=== PATIENT | female | born 1995 | race Caucasian/White ===

== ENCOUNTER 2019-11-08 16:18 | Emergency (ER) | payer OTHER, MEDICAID, SELFPAY ==
[2019-11-08 16:20] VITALS: BP 112/76; PULSE 82; RESP 18; TEMP 36.7; O2SAT 97; BMI 21.6
--- NOTE | 2019-11-08 16:46 | NURSING ---
NO OLD EKGS
--- NOTE | 2019-11-08 16:47 | EKG12_ITS ---
Test Reason : SYNCOPE Blood Pressure : / mmHG Vent. Rate : 069 BPM Atrial Rate : 069 BPM P-R Int : 114 ms QRS Dur : 082 ms QT Int : 380 ms P-R-T Axes : 038 032 035 degrees QTc Int : 407 ms Normal sinus rhythm Normal ECG Confirmed by MARIA A ZABALA, NIRMAL ([id number]), graphics editor YASEMIN LU ([id number]) on 11/13/2019 1:57:43 PM Referred By: CHARLIE Confirmed By:MAHI SAHA MD
--- NOTE | 2019-11-08 16:48 | ED.VIS.GEN ---
History of Present Illness Chief Complaint: Syncope Narrative: This patient is a 24-year-old female who presents with near syncope. Although to triage she had stated that she had multiple episodes of fainting she clarifies that she never actually completely lost consciousness. Over the past week she has had episodes of lightheadedness which is worse with standing. She has become lightheaded to the point where she needs to fall to her knees. No injuries. She does have a history of anemia with similar symptoms. This was related to her . She has not currently . She denies recent illness such as fevers vomiting or diarrhea. Her only daily medication is a vitamin. She denies any abnormal bleeding. She denies history of heavy periods. Past Medical History - Allergies and Home Meds Allergies/Adverse Reactions: Allergies No Known Allergies Allergy (Verified 11/08/19 16:23) Past Medical History: - - Anemia Review of Systems All systems negative except as indicated General: Denies: Fever Eyes: Denies: Visual changes - bilaterally Cardiovascular: Denies: Chest pain Respiratory: Denies: Dyspnea Gastrointestinal: Denies: Abdominal pain, Nausea, Vomiting, Diarrhea Musculoskeletal: Denies: Myalgias, Arthralgias Skin: Denies: Rash Neurological: Reports: Headache Hematologic: Denies: Easy bruising, Easy bleeding Physical Exam Vital Signs/Narrative: Vital Signs Temp Pulse Resp BP Pulse Ox 11/08/19 16:20 98.1 F 82 18 112/76 97 Inital Vital Signs reviewed: Yes General: Well nourished Head: Normocephalic Eyes: EOMI ENT: Moist mucous membranes Neck: Supple Cardiovascular: Regular rate, Regular rhythm Respiratory: No distress, CTA bilaterally Abdomen: Soft, Nontender Skin: Normal color Neurological: Alert Psychological: Normal affect Diagnostic/Tx/Re-eval - Medical Decision Making Orthostatic vital signs were negative. EKG shows normal sinus rhythm at a rate of 69 with no acute ischemic changes. Patient was treated with IV fluids. Laboratory studies unremarkable as above with normal hemoglobin. Patient advised to follow-up as an outpatient but does understand return for new worsening or recurrent symptoms. ED Disposition - Plan for ED Patient: Disposition: Home or Assisted Living Diagnosis: Near syncope Instructions: ED Near-Fainting Uncertain Cause
[2019-11-08 17:06] VITALS: BP 104/58; PULSE 72
[2019-11-08 17:08] VITALS: BP 116/73; PULSE 81
[2019-11-08 17:12] VITALS: BP 107/64; PULSE 76
[2019-11-08 17:40] LABS: Absolute Lymphocyte Count 3.25 X10^3/uL (0.83-4.51); Absolute Neutrophil Count 4.8 X10^3/uL (2.0-7.7); Basophil# 0.05 X10^3/uL; Basophil% 0.6 % (0-1); Eosinophil# 0.16 X10^3/uL; Eosinophils% 1.8 % (0-5); Hematocrit 45.2 % (37-47); Hemoglobin 14.9 g/dL (12.0-15.0); Lymphocyte # 3.25 X10^3/ul (4.0); Lymphocyte % 37.5 % (19-41); Mean Corpuscular Hgb 31.3 pg (27.0-32.0); Mean Platelet Vol. 9.8 fl (6.2-12.0); Monocyte# 0.41 X10^3/uL; Monocyte% 4.7 % (0-10); NRBC Flagged by Analyzer 0 % (0-5); Neutrophil # 4.78 X10^3/uL (2.7-7.7); Neutrophil % 55.2 % (47-70); Platelet Count 269 K/mm3 (150-450); RBC Distribution Width SD 41.3 fl (35.1-43.9); Red Blood Count 4.76 M/mm3 (4.2-5.4); White Blood Count 8.7 K/mm3 (4.4-11.0)
[2019-11-08] MEDS: 0.9% Normal Saline 1,000 ML 999 ML IV (17:53)
--- NOTE | 2019-11-08 17:53 | NURSING ---
HEMOLIZED CHEMISTRIES
[2019-11-08 18:33] VITALS: BP 120/73; PULSE 78; RESP 16; O2SAT 100
[2019-11-08 19:07] LABS: Anion Gap 5 (5-15); BUN 12 mg/dL (7-18); Calcium,Total 9.1 mg/dL (8.5-10.1); Chloride 108 mmol/L (98-107); Creatinine, Serum 0.66 mg/dL (0.55-1.02); EST Glomerular Filtration Rate 118 mL/min (>60); Est Glom Filt Rate - Afr Amer 143 mL/min (>60); Estimated Creatinine Clearance 120.31 ml/min; Glucose 86 mg/dL (74-106); Potassium 4.1 mmol/L (3.5-5.1); Sodium Level 141 mmol/L (136-145)
[2019-11-08 19:16] VITALS: BP 110/74; PULSE 82; RESP 16; O2SAT 100
== END 2019-11-08 19:23 | disposition home or self-care (01) ==
PROVIDERS: Emergency Provider Emergency Medicine
DX: R55 Syncope and collapse (principal)
CPT/HCPCS: 80048; 85025; 93005; 96360; 99285; J7030; A4216

== ENCOUNTER 2019-11-11 13:34 | Emergency (ER) | payer OTHER, MEDICAID, SELFPAY ==
[2019-11-11 13:35] VITALS: BP 134/73; PULSE 78; RESP 18; TEMP 36.4; O2SAT 97; BMI 21.6
--- NOTE | 2019-11-11 13:50 | EKG12_ITS ---
Test Reason : DYSRHYTHMIA Blood Pressure : / mmHG Vent. Rate : 073 BPM Atrial Rate : 073 BPM P-R Int : 114 ms QRS Dur : 088 ms QT Int : 386 ms P-R-T Axes : 044 037 042 degrees QTc Int : 425 ms Normal sinus rhythm Normal ECG Confirmed by WILIAM ZABALA, TAMERA ([id number]), assignment desk editor YASEMIN LU ([id number]) on 11/15/2019 1:04:40 PM Referred By: ITZ Confirmed By:TAMERA SWAIN MD
--- NOTE | 2019-11-11 13:53 | ED.VIS.GEN ---
History of Present Illness <Joel Velez - Last Filed: 11/11/19 14:01> Informant: Patient Onset: Today Context: Sudden Onset Timing: Lasts - 5 seconds Quality: near-Syncope Location: head Current Severity: Mild Maximum Severity: Severe Worsened by: exertion Relieved by: rest Associated Symptoms: Fatigue Narrative: 24-year-old female history of iron deficiency anemia presents to the emergency department with near syncope. She was seen here few days ago for similar. She is getting episodes when she stands up from a seated or lying position where she feels near syncopal but has not actually lost consciousness. No seizure-like activity. No chest pain shortness of breath or palpitations. She does not feel like her heart racing. No headache or neck pain. No room spinning sensation. No visual changes or loss of vision. No numbness tingling or weakness. No difficulty with speech or ambulation. No chest pain or hemoptysis. No leg pain or swelling. She is not on control. She denies risk factors for pulmonary embolism. She has been noncompliant with her iron. Denies symptoms of bleeding. Prior similar symptoms: Yes Recent Illness/Hospitalization: No <Yosvany Brambila - Last Filed: 11/11/19 14:21> Chief Complaint: Syncope Past Medical History <Joel Velez - Last Filed: 11/11/19 14:01> Prior records reviewed: Yes Past Medical History: - - Iron deficiency anemia Surgical History: no surgical history Lives: With Family Smoking Status: Never smoker Alcohol: None Drugs: None <Yosvany Brambila - Last Filed: 11/11/19 14:21> - Allergies and Home Meds Allergies/Adverse Reactions: Allergies No Known Allergies Allergy (Verified 11/11/19 13:38) Primary Care Physician: Care Physician,No Primary [Primary Care Provider] - Review of Systems All systems negative except as indicated General: Denies: Chills, Fever, Sweats Eyes: Denies: Visual changes - bilaterally, Diplopia ENT: Denies: Rhinorrhea, Sore throat Cardiovascular: Denies: Chest pain, Palpitations Respiratory: Denies: Dyspnea, Cough, Dyspnea on exertion Gastrointestinal: Denies: Abdominal pain, Nausea, Vomiting, Diarrhea, Melena, Hematochezia Genitourinary: Denies: Dysuria, Hematuria, Frequency Musculoskeletal: Denies: Back pain, Extremity Pain Skin: Denies: Rash, Wounds Neurological: Denies: Headache, Weakness, Numbness <Yosvany Brambila - Last Filed: 11/11/19 14:21> Physical Exam Vital Signs/Narrative: Vital Signs Temp Pulse Resp BP Pulse Ox 11/11/19 13:35 97.6 F L 78 18 134/73 H 97 <Joel Velez - Last Filed: 11/11/19 14:01> Vital Signs/Narrative: Vital Signs Temp Pulse Resp BP Pulse Ox 11/11/19 13:35 97.6 F L 78 18 134/73 H 97 Inital Vital Signs reviewed: Yes General: Well nourished, Well developed, No Acute Distress Head: Normocephalic, Atraumatic Eyes: Perrl, EOMI ENT: Moist mucous membranes, No rhinorrhea Neck: Supple, Nontender Cardiovascular: Regular rate, Regular rhythm, No murmurs Respiratory: No distress, CTA bilaterally, Chest nontender Abdomen: Soft, Nontender, Nondistended, Normal bowel sounds Back: Nontender, Normal Inspection Extremities: Nontender, No edema Skin: Normal color, No rash Neurological: Alert, Oriented x3, Cranial nerves II-XII grossly intact, Normal Strength, Normal Sensation Psychological: Normal affect, Normal Mood <Yosvany Brambila - Last Filed: 11/11/19 14:21> Diagnostic/Tx/Re-eval - Medical Decision Making Patient was seen with Jadyn agree with history and physical as above, The patient has not had syncope she has a sensation that strikes her where she feels rubbery as if she is going to pass out but does not she is had no fever no cough no chest pain abdominal pain no numbness weakness or paresthesias, she has no exposures to coronavirus denies being , she has history of anemia she was seen recently in emergency department with exact same issue her work-up was unremarkable she is to follow-up with her outpatient providers next week she had another sense of feeling rubbery and came in for evaluation. Nothing triggers the sensations there is no premonitory symptoms she is resting the bed vital signs are normal and she has no complaints her physical exam head neck chest abdomen cardiac upper lower extremity neurologic exam entirely unremarkable Her EKG shows sinus rhythm 70 no acute injury pattern intervals normal Discussed all the above with her discussed we could repeat ED evaluation that she just had it was unremarkable she declined that she is resting comfortably bed at this time she is comfortable discharge home to follow-up with her outpatient providers for further management Home stable final impression paroxysms of feeling weak etiology unclear <Joel Velez - Last Filed: 11/11/19 14:01> - Rhythm Strip Rhythm Strip: Sinus Rhythm Rate: 73 Ectopy: None - EKG Initial EKG Interpretation: Sinus Rhythm, No Acute Injury Pattern Prior: Unchanged <Yosvany Brambila - Last Filed: 11/11/19 14:21> ED Disposition <Joel Velez - Last Filed: 11/11/19 14:01> <Yosvany Brambila - Last Filed: 11/11/19 14:21> - Plan for ED Patient: Disposition: Home or Assisted Living Diagnosis: Generalized weakness, Iron deficiency anemia Instructions: ED Weakness [facility] Referrals: J Carlos Sylvester MD [STAFF PHYSICIAN] -
--- NOTE | 2019-11-11 13:58 | NURSING ---
NO OLD EKGS
[2019-11-11 14:33] VITALS: BP 111/68; PULSE 78; RESP 24; O2SAT 98
== END 2019-11-11 14:33 | disposition home or self-care (01) ==
PROVIDERS: Emergency Provider Physician Assistant Medical
DX: D50.9 Iron deficiency anemia, unspecified (principal); R53.1 Weakness; Z91.19 Patient's noncompliance with other medical treatment and regimen
CPT/HCPCS: 93005; 99282; A4216

== ENCOUNTER 2020-11-02 07:25 | Emergency (ER) | payer OTHER, MEDICAID, SELFPAY ==
[2020-11-02 07:26] VITALS: BP 107/70; PULSE 85; RESP 18; TEMP 36.6; O2SAT 100; BMI 21.6
--- NOTE | 2020-11-02 07:45 | EX.ED.DYSGE1 ---
HPI History of Present Illness Chief Complaint: Nausea/Vomiting Informant: patient and friend Onset/Context/Timing Onset: Today (early this AM) Context: Gradual Onset (ingesting drugs and etoh) Timing: Continuous Quality: n/v, malaise Location: all over Current Severity: Moderate Maximum Severity: Moderate Worsened by: trying to eat/drink Relieved by: nothing Associated Symptoms Associated Symptoms: headache, lightheaded Narrative Narrative: Patient and her friend were partying last night, she did not have a lot of alcohol to drink, but they were drinking some type of drug that they were under the impression was mildly/MDMA, but they are suspicious that it could have also included some type of opioid and methamphetamine possibly as well. Since doing all this she started feeling nauseated and progressed to vomiting, she has been vomiting all morning/night, and states as a result of the vomiting she has some abdominal muscular soreness but denies any abdominal pains prior to the vomiting. She feels malaised, lightheaded, has a headache, no other focal symptoms. Last normal menstrual cycle was 2.5-3 weeks ago, she has been regular she denies or any other recent injury or illness. [facility] Medical History (Updated 11/02/20 @ 08:16 by Adam Orellana) Raynaud's disease no medical history Home Medications NK 11/08/19 [History Last Taken Unknown] Allergy/AdvReac Type Severity Reaction Status Date / Time No Known Allergies Allergy Verified 11/02/20 07:28 Social History (Updated 11/02/20 @ 07:[address] 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 and other details: Does not use IV drugs ROS ROS ED Constitutional Constitutional ED: Reports malaise; Denies chills or fever(s) Eyes Eyes: Denies change in vision or diplopia ENT ENT ED: Denies rhinorrhea or sore throat Cardiovascular Cardiovascular: Denies chest pain or palpitations Respiratory/Chest Respiratory/Chest: Denies cough or dyspnea Gastrointestinal Gastrointestinal: Denies abdominal pain or diarrhea Genitourinary Genitourinary ED: Denies dysuria or hematuria Musculoskeletal Musculoskeletal: Denies back pain or neck pain Integumentary Denies abscess or rash Neurologic Neurologic: Reports headache(s); Denies paresthesias or weakness Psychiatric Psychiatric: Denies anxiety or suicidal thoughts EXAM Physical Exam Const Vital Signs: 11/02/20 07:26 Temperature 97.9 F Temperature Source Temporal Pulse Rate 85 Respiratory Rate 18 Blood Pressure 107/70 Blood Pressure Mean 82 Pulse Ox 100 Oxygen Delivery Method Room Air Positive well nourished and well developed General Appearance ED: well developed and NAD HEENT Reports moist mucous membranes normocephalic and atraumatic Eyes PERRL and EOMs intact bilaterally Neck full ROM and supple Resp normal respiratory effort and clear to auscultation bilaterally Cardio regular rate, regular rhythm and no murmurs Rate: Negative for tachycardic GI non-tender and non-distended Auscultation: normoactive bowel sounds Palpation: soft Back/Spine no CVA tenderness General Back: other FROM Extremity normal to inspection General Extremety ED: Negative for edema, pulses abnormal or tenderness General Extremity: Negative for edema or pulses abnormal Neuro oriented x3, CN's II-XII intact bilaterally and no sensory deficits noted Sensorium / Orientation: awake and alert Motor Exam: strength 5/5 throughout Skin no rashes or lesions noted and no wounds MDM MDM MDM Narrative Medical decision making narrative: Patient was treated symptomatically with IV fluids, Zofran, Toradol. She felt better on reevaluation was able to tolerate oral fluids, and was discharged with appropriate discharge instructions. Discharge Plan Triage Chief Complaint: Nausea/Vomiting ED Provider: Ramon Haque Dx/Rx/DC Orders Clinical Impression: Nausea & vomiting, Polysubstance abuse Instructions: ED Diet for Vomiting or Diarrhea Adult, ED Drug Abuse Prescriptions: No Action NK RF: 0 Primary Care Provider: Care Physician,No Primary Referrals: Zuly Garcia [NON-STAFF] - As Needed Care Physician,No Primary [Primary Care Provider] - Disposition Disposition: Home, self care
[2020-11-02] MEDS: 0.9% Normal Saline 1,000 ML 999 ML IV (08:06)
[2020-11-02] MEDS: Ketorolac 30 MG/ML Syringe IV (08:07)
[2020-11-02] MEDS: Ondansetron 4 MG/2 ML Vial IV (08:07)
--- NOTE | 2020-11-02 09:58 | ED.RN ---
Pt admits improved feeling
[2020-11-02 10:09] VITALS: BP 126/82; PULSE 83; RESP 16; O2SAT 100
== END 2020-11-02 10:10 | disposition home or self-care (01) ==
PROVIDERS: Emergency Provider Emergency Medicine
DX: R11.2 Nausea with vomiting, unspecified (principal); R42 Dizziness and giddiness; R51.9 Headache, unspecified; I73.00 Raynaud's syndrome without gangrene; F19.10 Other psychoactive substance abuse, uncomplicated
CPT/HCPCS: 96361; 96374; 96375; 99283; J7030; A4216; J2405

== ENCOUNTER 2024-12-17 18:58 | Emergency (ER) | payer OTHER, SELFPAY ==
[2024-12-17] VITALS (7 sets, daily range): BP systolic 105–126; BP diastolic 56–78; PULSE 91–112; RESP 14–18; TEMP 36.2–36.9; O2SAT 96–100; BMI 21.9
--- NOTE | 2024-12-17 19:14 | EKG12_ITS ---
Test Reason : SYNCOPE Blood Pressure : */* mmHG Vent. Rate : 105 BPM Atrial Rate : 105 BPM P-R Int : 122 ms QRS Dur : 80 ms QT Int : 324 ms P-R-T Axes : 52 17 19 degrees QTcB Int : 428 ms Sinus tachycardia poor rwave progression Borderline Confirmed by Winston Chen ([id number]), material expeditor LENA HERNANDEZ ([id number]) on 12/19/2024 1:12:30 PM Referred By: Emelina Howard Confirmed By: Winston Chen
--- NOTE | 2024-12-17 19:14 | CT_ITS ---
PROCEDURE: ABDOMEN/PELVIS W IV CONT ONLY 12/17/2024 REASON FOR EXAM: ABDOMINAL PAIN TECHNIQUE: ABDOMEN/PELVIS W IV CONT ONLY Coronal and Sagittal reconstruction series were provided. CONTRAST: Isovue 370 VOLUME: 88 mL One or more dose reduction techniques were used (e.g., Automated exposure control, adjustment of the mA and/or kV according to patient size, use of iterative reconstruction technique. RADIATION DOSE SUMMARY: CTDlvol: 17 mGy DLP: 345 mGycm COMPARISON: No FINDINGS: Clear lung bases. Normal heart size. Unremarkable liver, gallbladder, pancreas, spleen, adrenal glands, kidneys. No hydronephrosis or ureteral stone. Normal bladder. Normal uterus and left ovary. Involuting right ovarian cyst. Small pelvic free fluid. No retroperitoneal or pelvic adenopathy. Distended pelvic veins, correlate for pelvic congestion syndrome. No free air. Nondistended bowel. Multiple distal small bowel loops show wall thickening, possible enteritis. No acute large bowel findings. No signs of appendicitis. No acute abdominal wall findings. CT/Abdomen/Pelvis W IV Cont ONLY IMPRESSION: Recent right ovarian cyst rupture with pelvic fluid, this can be a cause of prince n. 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 Distal enteritis such as secondary to infection. Advise correlation. Reading Location: [facility]
--- NOTE | 2024-12-17 19:15 | EDS_ITS ---
HPI History of Present Illness Chief Complaint: Syncope Detail of Chief Complaint: Abdominal pain and syncopal episode Informant: patient Narrative Narrative: Patient presents to the emergency department complaint of abdominal pain had started this morning around 9 AM when she first woke up. Patient took some Pepto-Bismol but really did not have relief with that. Pain then progressed, to the left side of her abdomen and into her back. On the way to the hospital she was in the car and had a syncopal episode that lasted about 2 minutes. She denies any chest pain or shortness of breath. Feels chilled. She denies urinary symptoms. Her last menstrual period was a week ago. PFSH PFS Medical History (Updated 12/17/24 @ 23:[address] Emelina Howard, DO) Raynaud's disease Home Medications ?Medication ?Instructions ?Recorded ?Last Taken ?Type hydrocodone-acetaminophen 5-325mg 1 tab PO Q4H PRN PRN Pain 2 days 12/17/24 Unknown Rx 5mg-325mg #10 TABLETS Allergy/AdvReac Type Severity Reaction Status Date / Time carbinoxamine (From [facility]) Allergy Intermediate Hives Verified 12/17/24 19:23 pseudoephedrine (From [facility]) Allergy Intermediate Hives Verified 12/17/24 19:23 Surgical History (Updated 12/17/24 @ 19:36 by Kezia Sylvester) Hx of tonsillectomy [place] teeth extracted Social History (Updated 11/02/20 @ 07:[address] 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 and other details: Does not use IV ina gs ROS ROS ED Review of Systems ROS Unobtainable: other Constitutional Constitutional ED: Reports chills and lethargy; Denies fever(s), sweats or weight loss Eyes Eyes: Denies blurry vision, change in vision or diplopia ENT ENT ED: Denies rhinorrhea or sore throat Cardiovascular Cardiovascular: Denies chest pain, orthopnea or racing heartbeat Respiratory/Chest Respiratory/Chest: Denies cough, dyspnea, dyspnea on exertion, orthopnea or sputum Gastrointestinal Gastrointestinal: Reports abdominal pain; Denies diarrhea, nausea or vomiting Genitourinary Genitourinary ED: Denies dysuria, hematuria or urinary frequency Musculoskeletal Musculoskeletal: Reports back pain; Denies arthralgias, myalgias or neck pain Integumentary Denies abscess, Abrasions or rash Neurologic Neurologic: Reports other Details: Syncope ; Denies headache(s) or weakness Psychiatric Psychiatric: Denies anxiety, depression or suicidal thoughts Endocrine Endocrinology: Denies polydipsia, polyphagia or polyuria Hematologic/Lymphatic Hematologic/Lymphatic: Denies easy bleeding, easy bruising or lymphadenopathy Allergic/Immunologic Allergic/Immunologic ED: Denies mouth swelling, tongue swelling or urticaria EXAM Physical Exam Const Vital Signs: 12/17/24 18:59 12/17/24 19:23 12/17/24 19:33 Temperature 97.2 F L Temperature Source Temporal Pulse Rate 112 H 92 Respiratory Rate 16 16 Respiratory Effort Normal Respiratory Pattern Normal Blood Pressure 115/78 126/66 H Blood Pressure Mean 90 86 Pulse Ox 100 100 Oxygen Delivery Method Room Air Room Air 12/17/24 20:00 12/17/24 21:17 12/17/24 22:00 Temperature Temperature Source Pulse Rate 98 91 Respiratory Rate 14 18 Respiratory Effort Respiratory Pattern Blood Pressure 112/56 L 115/77 117/77 Blood Pressure Mean 74 89 90 Pulse Ox 99 99 96 Oxygen Delivery Method Room Air 12/17/24 23:00 Temperature Temperature Source Pulse Rate 94 Respiratory Rate 18 Respiratory Effort Respiratory Pattern Blood Pressure 105/66 Blood Pressure Mean 79 Pulse Ox 98 Oxygen Delivery Method Positive well nourished and well developed General Appearance ED: well developed and NAD HEENT Reports TM's clear and moist mucous membranes normocephalic and atraumatic; Negative for trauma or tenderness Tympanic Membrane ED: Yes TM's clear Eyes PERRL and EOMs intact bilaterally General Eye ED: Negative for pale conjunctiva or scleral icterus Neck no lymphadenopathy, supple and no JVD General: Negative for tenderness Chest Wall inspection of chest normal and palpation of chest normal Chest: Negative for tenderness Resp normal respiratory effort and clear to auscultation bilaterally Effort and Inspection: Negative for respiratory distress or pain with movement Auscultation: Negative for rhonchi, wheezes or diminished lung sounds Cardio regular rate, regular rhythm, S1 normal heart sound, S2 normal heart sound and no murmurs Peripheral Pulses: pulses 2+ throughout GI normal to inspection, nondistended, normoactive bowel sounds, soft to palpation, non-distended and no masses GI Narrative: Mild tenderness palpation over the left upper quadrant and left lower quadrant with mild guarding. There is no rebound, rigidity, or purulent signs. Mild CVA tenderness on the left. Back/Spine no thoracic nor lumbar tenderness; Negative for no CVA tenderness Back/Spine Narrative: Mild CVA tenderness on the left. Extremity normal to inspection General Extremety ED: Negative for edema General Extremity: Negative for edema Neuro oriented x3, CN's II-XII intact bilaterally, no sensory deficits noted and gait normal Sensorium / Orientation: awake, alert, oriented to person, oriented to place and oriented to time Motor Exam: strength 5/5 throughout and strength abnormal Psych mental status grossly normal Skin no rashes or lesions noted and no wounds MDM MDM MDM Narrative Medical decision making narrative: Patient presents to the emergency department with abdominal pain since this morning initially was epigastric now more left-sided lower abdomen. Diffuse tenderness to palpation over suprapubic region as well as left lower quadrant. There is no rebound or rigidity. IV line established. She was medicated with Toradol as well as Dilaudid and Zofran and had good pain relief with that. CBC with her shows a white count of 8.6 with hemoglobin 12 and platelet count of 225. Chemistries unremarkable. Lactate less than 1. Urinalysis negative for infection. hCG was negative. CT scan of the abdomen pelvis read by radiology as recent right ovarian cyst rupture with pelvic fluid. 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 Distal enteritis such as secondary to infection advise correlation. Patient has not had any diarrheal type illness. This point I did discuss case with [employer] on-call Dr. Christianson who would be happy to follow patient up in the office. No treatment indicated at this time for pelvic congestion syndrome. Patient will be given a prescription for a few [place] for pain. Advised return if worsening pain, fever, vomiting, or condition should worsen anyway. I suspect the syncopal episode was likely vagally mediated related to pain. EKG obtained arrival showed a sinus rhythm with rate of 105 bpm with no acute ST segment changes Lab Data Attestation: I reviewed the patient's lab results. Labs: Laboratory Results - last 24 hr 12/17/24 12/17/24 12/17/24 19:26 19:26 19:42 WBC Cancelled Corrected WBC Cancelled RBC Cancelled Hgb Cancelled Hct Cancelled MCV Cancelled MCH Cancelled MCHC Cancelled RDW Std Deviation Cancelled RDW Coeff of Conrado Cancelled Plt Count Cancelled MPV Cancelled Immature Gran % (Auto) Cancelled Neut % (Auto) Cancelled Lymph % (Auto) Cancelled [place] % (Auto) Cancelled Eos % (Auto) Cancelled Baso % (Auto) Cancelled Absolute Neuts (auto) Cancelled Absolute Lymphs (auto) Cancelled Total Counted Cancelled Neutrophils % (Manual) Cancelled Band Neutrophils % Cancelled Lymphocytes % (Manual) Cancelled Monocytes % (Manual) Cancelled Eosinophils % (Manual) Cancelled Basophils % (Manual) Cancelled Metamyelocytes % Cancelled Myelocytes % Cancelled Promyelocytes % Cancelled Blast Cells % Cancelled Plasma Cell % (Manual) Cancelled Other Cells % Cancelled Nucleated RBC % Cancelled Nucleated RBCs/100 WBC Cancelled Differential Comment Cancelled Diff Path Review Cancelled Hypersegmented Neuts Cancelled Atypical Lymphocytes Cancelled Reactive Lymphocytes Cancelled Smudge Cells Cancelled Toxic Granulation Cancelled Toxic Vacuolation Cancelled Dohle Bodies Cancelled Lindsay Rods Cancelled Platelet Estimate Cancelled Plt Morphology Comment Cancelled RBC Morphology Cancelled Cancelled Polychromasia Cancelled Hypochromasia Cancelled Basophilic Stippling Cancelled Anisocytosis Cancelled Microcytosis Cancelled Macrocytosis Cancelled Spherocytes Cancelled Sickle Cells Cancelled Target Cells Cancelled Tear Drop Cells Cancelled Ovalocytes Cancelled Stomatocytes Cancelled Lopez-[place] Bodies Cancelled Boncarbo Cells Cancelled Bite Cells Cancelled Crenated Cell Cancelled Acanthocytes (Spur) Cancelled Rouleaux Cancelled Schistocytes Cancelled Sodium 134 Potassium 4.3 Chloride 102 Carbon Dioxide 17.5 L Anion Gap 15 BUN 8 Creatinine 0.63 L Estim Creat Clear Calc 120.70 Est GFR (MDRD) Non-Af 125 BUN/Creatinine Ratio 12.7 Glucose 94 Lactic Acid < 1.0 Calcium 9.7 Total Bilirubin 0.38 AST 24 ALT 9 Alkaline Phosphatase 71 Total Protein 7.0 Albumin 4.3 Globulin 2.7 Albumin/Globulin Ratio 1.6 Lipase 17 Serum , Qual NEGATIVE Urine Color Yellow Urine Clarity Sl. Cloudy Urine pH 6.5 Ur Specific Hitchcock 1.010 Urine Protein 15 H Urine Glucose (UA) Normal Urine Ketones 15 H Urine Occult Blood Negative Urine Nitrite Negative Urine Bilirubin Negative Urine Urobilinogen Normal Ur Leukocyte Esterase 100 H Urine RBC 0-5 SEEN Urine WBC 5-10 SEEN Ur Squamous Epith Cells 25-50 SEEN Ur Transition Epith Cell 0-5 SEEN Urine Bacteria 2+ Urine Mucus 0 SEEN 12/17/24 20:51 WBC 8.6 Corrected WBC RBC 4.06 L Hgb 12.2 Hct 35.6 L MCV 87.7 MCH 30.0 MCHC 34.3 RDW Std Deviation 40.3 RDW Coeff of Conrado 12.4 Plt Count 225 MPV 9.2 Immature Gran % (Auto) 0.300 Neut % (Auto) 84.6 H Lymph % (Auto) 10.0 L [place] % (Auto) 4.9 Eos % (Auto) 0.0 Baso % (Auto) 0.2 Absolute Neuts (auto) 7.3 Absolute Lymphs (auto) 0.86 Total Counted Neutrophils % (Manual) Band Neutrophils % Lymphocytes % (Manual) Monocytes % (Manual) Eosinophils % (Manual) Basophils % (Manual) Metamyelocytes % Myelocytes % Promyelocytes % Blast Cells % Plasma Cell % (Manual) Other Cells % Nucleated RBC % 0 Nucleated RBCs/100 WBC Differential Comment Diff Path Review Hypersegmented Neuts Atypical Lymphocytes Reactive Lymphocytes Smudge Cells Toxic Granulation Toxic Vacuolation Dohle Bodies Lindsay Rods Platelet Estimate Plt Morphology Comment RBC Morphology Polychromasia Hypochromasia Basophilic Stippling Anisocytosis Microcytosis Macrocytosis Spherocytes Sickle Cells Target Cells Tear Drop Cells Ovalocytes Stomatocytes Lopez-[place] Bodies Boncarbo Cells Bite Cells Crenated Cell Acanthocytes (Spur) Rouleaux Schistocytes Sodium Potassium Chloride Carbon Dioxide Anion Gap BUN Creatinine Estim Creat Clear Calc Est GFR (MDRD) Non-Af BUN/Creatinine Ratio Glucose Lactic Acid Calcium Total Bilirubin AST ALT Alkaline Phosphatase Total Protein Albumin Globulin Albumin/Globulin Ratio Lipase Serum , Qual Urine Color Urine Clarity Urine pH Ur Specific Hitchcock Urine Protein Urine Glucose (UA) Urine Ketones Urine Occult Blood Urine Nitrite Urine Bilirubin Urine Urobilinogen Ur Leukocyte Esterase Urine RBC Urine WBC Ur Squamous Epith Cells Ur Transition Epith Cell Urine Bacteria Urine Mucus Radiography Diagnostic Testing: Clinical Impression(s) from Imaging Studies Abdomen/Pelvis CT 12/17/24 19:14 IMPRESSION: Recent right ovarian cyst rupture with pelvic fluid, this can be a cause of pain. 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 Distal enteritis such as secondary to infection. Advise correlation. Reading Location: [id number] EKG Initial EKG: Attestation: I personally reviewed and interpreted this EKG as follows: Comments: Sinus tachycardia with ventricular rate of 105 bpm with no acute ST segment changes Discharge Plan Triage Chief Complaint: Syncope Other Complaint: Back ED Provider: Emelina Howard Dx/Rx/DC Orders Clinical Impression: Abdominal pain, Ovarian cyst Instructions: ED Abdominal Pain Unkn Cause Fem, ED Ovarian Cyst, ED Fainting, Vagal Reaction Prescriptions: New hydrocodone-acetaminophen 5-325 mg tablet 1 tab PO Q4H PRN PRN (Reason: Pain) 2 Days Qty: 10 0RF Primary Care Provider: Care Physician,No Primary Referrals: Anahi Christianson MD [Med Staff - Active Staff] - 3-5 Days Care Physician,No Primary [Primary Care Provider] - Print Language: Lao Disposition Disposition: Home, Self Care
[2024-12-17] MEDS: 0.9% Normal Saline (1000mL) 1,000 ML 125 ML IV (19:32)
[2024-12-17 19:47] LABS: Mucous, Urine 0 SEEN /hpf (<or=2+)
[2024-12-17 19:59] LABS: AST(SGOT) 24 U/L (<=31); Alanine Aminotransfer ALT/SGPT 9 U/L (<=34); Albumin, Serum 4.3 g/dL (3.5-5.0); Alkaline Phosphatase 71 U/L (35-104); Anion Gap 15 (5-15); BUN 8 mg/dL (4-19); BUN/Creat Ratio 12.7 RATIO (10-20); Calcium,Total 9.7 mg/dL (7.6-11.0); Carbon Dioxide 17.5 mmol/L (21.0-32.0); Chloride 102 mmol/L (98-108); Estimated Creatinine Clearance 120.70 ml/min (50-250); Globulin 2.7 g/dL (2.2-4.2); Glucose 94 mg/dL (70-99); Lipase 17 U/L (13-75); Potassium 4.3 mmol/L (3.3-5.1)
[2024-12-17 20:05] LABS: Color, Urine Yellow (Yellow); Glucose, Dipstick Normal (Normal); Ketone-Dipstick 15 mg/dl (Negative); Leukocyte Esterase-Dipstick 100 /ul (Negative); Nitrite-Dipstick Negative (Negative); Occult Blood-Urine Negative /ul (Negative); Protein-Dipstick 15 mg/dl (Negative); Specific Gravity, Urine 1.010 (1.002-1.030); Urine Bilirubin Dipstick Negative (Negative)
[2024-12-17 20:05] LABS: Internal QC Validated? YES +Cl - CLEAR BKGD; Pregnancy, Serum, hCG Quali. NEGATIVE Negative; Record Kit Lot#, Serum Preg. 0000962302
--- OUTSIDE RECORDS SUMMARY | 2024-12-17 20:06 | XMS RPT_ITS | CCD ---
Author Organization [facility] ion Partnership LICENSED FINAL EXPENSE AGENTS [facility] Care Team Providers Care Special Library Librarian Name Role Phone ORACIO MARLEY Unavailable Unavailable REFERRED, SELF Unavailable Unavailable LUCIANO SHAH Unavailable Unavailable PRITI HADDAD Admitting Unavailable PRITI HADDAD Attending Unavailable AA NO PCP, NO PCP Primary Care Unavailable PHYSICIAN, NONE Primary Care Physician Unavailab Luciano Jorge MD Primary Care Provider [phone] Luciano Shah Primary Care Provider [phone] TWAN ZABALA, FLORI Mendez Attending Unavail able PHYSICIAN, NONE Primary Care Unavailable DAMARIS FLORES DO Attending Unavailable PHYSICIAN, NONE Primary Care Unavailable PROVIDER, UNKNOWN Attending Unavailable PHYSICIAN, NONE Primary Care Unavailable Mark Dowd MD Primary Care Provider Mark Dowd MD Primary Care Provider GENESIS POLK Attending Unavailable SERAFIN, MARK Primary Care Unavailable DOLLY SALDIVAR Attending Unavailable SERAFIN, MARK Primary Care Unavailable SERAFIN, MARK Primary Care Unavailable DOLLY SALDIVAR Attending Unavailable SERAFIN, MARK Primary Care Unavailable GENESIS POLK Attending Unavailable SERAFIN, MARK Primary Care Unavailable SERAFIN, MARK Referring Unavailable SERAFNI, MARK Attending Unavailable SERAFIN, MARK Primary Care Unavailable GENESIS POLK Attending Unavailable SREAFIN, MARK Attending Unavailable RAMONA HALL Attending Unavailable SERAFIN, MARK Primary Care Unavailable GENESIS POLK Attending Unavailable MARK DOWD Attending Unavailable SERAFIN, MARK Primary Care Unavailable ANNE, KAY Attending Unavailable ANNE KAY Admitting Unavailable SERAFIN, MARK Primary Care Unavailable CATALINA MUNGUIA Attending Unavailable CATALINA MUNGUIA Admitting Unavailable SERAFIN, MARK Primary Care Unavailable SHAINA LUCERO Attending Unavailable JAZMINE, SHAINA Admitting Unavailable SERAFIN, MARK Primary Care Unavailable GENESIS POLK Attending Unavailable TIANA ARENAS Admitting Unavailable SERAFIN, MARK Primary Care Unavailable DOLLY SALDIVAR Attending Unavailable SERAFIN, MARK Primary Care Unavailable CATALINA MUNGUIA Attending Unavailable NILDA, CATALINA Admitting Unavailable SERAFIN, MARK Attending Unavailable SERAFIN, MARK Admitting Unavailable SERAFIN, MARK Primary Care Unavailable SHAINA LUCERO Attending Unavailable JAZMINE, SHAINA Admitting Unavailable SERAFIN, MARK Primary Care Unavailable KELVIN REYES Attending Unavailable KELVIN REYES Admitting Unavailable Allergies Allergy Classification Reported Allergen(s) Allergy Type Date of Onset Reaction(s) Facility (5 sources) carbinoxamine / Pseudoephedrine; Translations: [[facility]] Drug Allergy 03-23-20 10 [facility] Repository (11 sources) Lactose (non-medical use); Translations: [LACTOSE INTOLERANCE (GI)] Propensity to adverse reactions to drug (disorder) 07-16-19 23 [facility] Repository (1 source) Brompheniramine / Pseudoephedrine Drug Allergy 06-29-19 17 Intolerance [facility] (1 source) carbinoxamine Drug Allergy 11-08-19 19 Unknown [facility] (2 sources) ceFAZolin Drug Allergy 11-11-19 19 Hives, Itching [facility] (1 source) Lactose Drug Allergy 08-23-19 19 GI Upset [facility] (1 source) Pseudoephedrine Drug Allergy 11-08-19 19 Unknown [facility] (20 sources) chlophedianol / Pseudoephedrine Drug Allergy 03-23-20 10 [facility] (1 source) Sulfonamides (Antibiotic) Propensity to adverse reactions to drug 12-16-19 Hives [facility] NEGATED: Highlighted row has been ruled out! (1 source) Other Propensity to adverse reactions 12-06-19 17 Hives [facility] Medications Current Medications Medication Drug Class(es) Dates Sig (Normalized) Sig (Original) aspirin 81 mg delayed release oral tablet (20 sources) Platelet Aggregation Inhibitor, Nonsteroidal Anti-inflammatory Drug Start: 04-08-2022 End: 04-08-2023 aspirin 81 mg oral delayed release tablet Dose : 81 mg = 1 tab(s), Oral, Daily, 0 Refill(s) Start Date: 04/19/22 Status: Ordered Blood Pressure Monitoring (Comfort Touch BP Cuff/Medium) misc (7 sources) Start: 07-20-2022 Blood Pressure Monitoring (Comfort Touch BP Cuff/Medium) misc 1 each daily. Take blood pressure twice per day and record results 1 each 0 07/20/2022 Active cephalexin 500 mg oral capsule (1 source) Cephalosporin Antibacterial Start: 12-09-2021 End: 12-16-2021 cephalexin 500 mg oral capsule Dose : 500 mg = 1 cap(s), Oral, TID, X 7 day(s), # 21 cap(s), 0 Refill(s), 12/16/21 22:56:00 EDT, Nausea and vomiting Acute pelvic pain, 59.1 Start Date: 12/09/21 Stop Date: 12/16/21 Status: Ordered diclofenac sodium 50 mg delayed release oral tablet (1 source) Nonsteroidal Anti-inflammatory Drug Start: 02-10-2018 take 1 tablet by mouth three times daily at mealtime diclofenac (VOLTAREN) 50 MG EC tablet Indications: Dog bite of finger, initial encounter Take 1 tablet by mouth 3 times daily (with meals) 30 tablet 0 02/10/2018 Active DULoxetine 60 mg oral capsule (1 source) Serotonin and Norepinephrine Reuptake Inhibitor take 60 mg by mouth once daily DULoxetine HCl (CYMBALTA PO) Take 60 mg by mouth daily 0 Active ferrous sulfate 325 mg oral tablet (20 sources) Start: 05-28-2022 End: 09-25-2022 take 1 tablet by mouth twice daily ferrous sulfate (FerrouSul) 325 (65 Fe) MG tablet Take 1 tablet (325 mg) by mouth 2 times daily. 60 tablet 3 05/28/2022 09/25/2022 Active Start: 05-22-2019 take 1 tablet by verenice th once daily at breakfast ferrous sulfate 325 mg (65 mg iron) tablet Indications: Low iron stores Take 1 tablet by mouth daily with breakfast. 30 tablet 2 05/22/2019 Active Comment on above: Take 1 tablet by verenice th daily with breakfast. FLUoxetine 10 mg oral capsule (1 source) Serotonin Reuptake Inhibitor Start: 3 End: 3 take 1 capsule by mouth once daily FLUoxetine (PROzac) 10 MG capsule Take 1 capsule (10 mg) by mouth daily. 30 capsule 1 12/31/2022 03/01/2023 Active ibuprofen 600 mg oral tablet (13 sources) Nonsteroidal Anti-inflammatory Drug Start: 3 End: 3 take 1 tablet by mouth every six hours as needed for pain ibuprofen 600 MG tablet Take 1 tablet (600 mg) by mouth every 6 hours as needed for mild pain (1-3). 60 tablet 1 07/20/2022 Active omeprazole 20 mg delayed release oral tablet (20 sources) Proton Pump Inhibitor Start: 2 PriLOSEC OTC 20 mg oral delayed release tablet Dose : 60 mg = 3 tab(s), Oral, BID, # 180 tab(s), 0 Refill(s) Start Date: 04/19/22 Status: Ordered End: 07-24-2022 take 1 capsule by mouth once daily before breakfast omeprazole (PriLOSEC) [address] capsule Take 20 mg by mouth every morning (before breakfast). Do not crush or chew. 0 07/24/2022 Discontinued (Med list cleanup) ondansetron 4 mg oral tablet, disintegrating (1 source) Start: 04-15-2021 End: 04-18-2021 ondansetron 4 mg oral tablet, disintegrating Dose : 4 mg = 1 tab(s), Oral, q6h, X 3 day(s), # 12 tab(s), 0 Refill(s), 04/18/21 4:03:00 EST Start Date: 04/15/21 Stop Date: 04/18/21 Status: Ordered predniSONE 20 mg oral tablet (1 source) Start: 04-15-2021 End: 04-20-2021 predniSONE 20 mg oral tablet Dose : 60 mg = 3 tab(s), Oral, qDay, X 5 day(s), # 15 tab(s), 0 Refill(s), 04/20/21 4:01:00 EST Start Date: 04/15/21 Stop Date: 04/20/21 Status: Ordered Multivitamins (1 source) Start: 04-19-2022 take 1 tablet by mouth once daily Multivitamins Dose = 1 tab(s), Oral, qDay, # 90 tab(s), 0 Refill(s) Start Date: 04/19/22 Status: Ordered pseudoephedrine hydrochloride 30 mg oral tablet (1 source) alpha-Adrenerg ic Agonist Start: 04-15-2021 End: 04-20-2021 pseudoephedrine 30 mg oral tablet Dose : 30 mg = 1 tab(s), Oral, q6h, PRN as needed for cold symptoms, X 5 day(s), # 24 tab(s), 0 Refill(s), 04/20/21 4:02:00 EST Start Date: 04/15/21 Stop Date: 04/20/21 Status: Ordered Completed/Discontinued Medications Medication Drug Class(es) Dates Sig (Normalized) Sig (Original) acetaminophen 500 mg oral tablet (18 sources) Start: 07-21-2022 End: 07-23-2022 take 1 tablet by mouth every eight hours as needed for pain 1,000 mg, Oral, Every 8 hours PRN, mild pain (1-3), Starting on 07/21/22 at 2226 Maximum dose of acetaminophen is 4000 mg from all sources in 24 hours. Start: 07-21-2022 ACETAMINOPHEN 500 MG TABLET ACETAMINOPHEN 500 MG TABLET, 0 Refill(s), 68.1 Start Date: 07/21/22 Status: Ordered Start: 07-20-2022 take 2 tablets by mo [facility] every eight hours as needed for pain acetaminophen (Tylenol Extra Strength) 500 MG tablet Take 2 tablets (1,000 mg) by mouth every 8 hours as needed for mild pain (1-3). 60 tablet 1 07/20/2022 Active Start: 07-17-2022 End: 07-20-2022 take 1 tablet by mouth every six hours as needed for pain 650 mg, Oral, Every 6 hours PRN, mild pain (1-3), Starting on 07/18/22 at 2155 Give in addition to any other pain medication ordered at same time for any pain indication. Maximum dose of acetaminophen is 4000 mg from all sources in 24 hours. Alternate ibuprofen and acetaminophen every 3 hours. Start: 07-17-2022 End: 07-18-2022 acetaminophen (Tylenol) 325 MG tablet - Pyxis ADS Override Pull Start: 02-03-2022 End: 09-06-2022 acetaminophen (TYLENOL) tabl et 650 mg benzethonium chloride 2 mg/ml / benzocaine 200 mg/ml topical spray (2 sources) Standardized Chemical Allergen Start: 07-19-2022 End: 07-20-2022 Topical, As needed, pain, , Starting on 07/19/22 at 0215, Apply to perineal area. Patient is capable and may self administer at bedside. calcium carbonate 500 mg chewable tablet (20 sources) Start: 07-21-2022 End: 07-24-2022 500 mg, Oral, PRN, indigestion, heartburn, Starting on Wed07/21/22 at 2227 calcium chloride 0.0014 meq/ml / potassium chloride 0.004 meq/ml / sodium chloride 0.103 meq/ml / sodium lactate 0.028 meq/ml injectable solution (2 sources) Start: 07-17-2022 End: 07-19-2022 take 125 mL intravenously every hour 125 mL/hr, IntraVENous, Continuous, Starting on Wed07/17/22 at 2145, Pre-Delivery chlorhexidine gluconate 20 mg/ml medicated pad (2 sources) Start: 07-17-2022 End: 07-19-2022 apply 1 dose topically every six hours Topical, Every 6 hours, First dose on Wed07/17/22 at 2145, Pre-Delivery Apply to the affected area. Clean entire abdomen. docusate sodium 100 mg oral capsule (2 sources) Start: 07-19-2022 End: 07-20-2022 take 100 mg by mouth twice daily as needed for constipation 100 mg, Oral, 2 times daily PRN, constipation, Vaginal Delivery, Starting on 07/19/22 at 0226 Do not crush or break. Ethinyl Estradiol / Levonorgestrel (1 source) Progestin, Estrogen, Progestin-contai chetan Intrauterine Device Start: 02-02-2020 take 1 tablet by mouth once daily CAMRESE LO 0.10 mg-20 mcg (84)/10 mcg (7) 3MPk Indications: Oral contraception initiation Take 1 tablet by mouth once daily. 91 tablet 0 02/02/2020 Active Comment on above: Take 1 tablet by once daily. famotidine 20 mg oral tablet (6 sources) Histamine-2 Receptor Antagonist Start: 07-19-2022 End: 07-20-2022 take 20 mg by mouth twice daily as needed for gastroesophageal reflux disease 20 mg, Oral, 2 times daily PRN, heartburn, Starting on 07/19/22 at 0215, Renal dose per pharmacy for peptic ulcer prophylaxis. Start: 07-18-2022 End: 07-18-2022 famotidine (Pepcid) 20 MG/2M L injection - Pyxis ADS Override Pull Start: 06-29-2022 End: 06-29-2022 famotidine (Pepcid) injectio n 20 mg iron sucrose (Venofer) 140 m g in sodium chloride 0.9 % 100 mL IVPB (2 sources) Start: 07-03-2022 End: 07-03-2022 iron sucrose (Venofer) 140 m g in sodium chloride 0.9 % 100 mL IVPB iron sucrose (Venofer) 200 m g in sodium chloride 0.9 % 100 mL IVPB (4 sources) Start: 06-29-2022 End: 06-29-2022 iron sucrose (Venofer) 200 m g in sodium chloride 0.9 % 100 mL IVPB Start: 06-24-2022 End: 06-24-2022 iron sucrose (Venofer) 200 m g in sodium chloride 0.9 % 100 mL IVPB lanolin 1000 mg/ml topical cream (4 sources) Start: 07-21-2022 End: 07-23-2022 Topical, As needed, dry skin , nipple discomfort, Starting on Tu07/21/22 at 2227 Apply to affected area. Start: 07-19-2022 End: 07-20-2022 Topical, As needed, dry skin , nipple discomfort, Starting on 07/19/22 at 0215, Apply to affected area. lidocaine 0.04 mg/mg medicated patch (4 sources) Antiarrhythmic, Amide Local Anesthetic Start: 07-22-2022 End: 07-23-2022 apply 1 dose transdermal route every twelve hours 1 patch, TransDERmal, Administer over 12 Hours, Daily, First dose (after last modification) on Wed07/22/22 at 0900 Apply patch to affected area. Patch may remain in place for up to 12 hours in any 24 hour period. Start: 07-18-2022 End: 07-20-2022 Lidocaine 4 % patch 1 patch 500 ml magnesium sulfate 40 mg/ml injection (8 sources) Start: 07-21-2022 End: 07-22-2022 take 2 g intravenously every hour 2 g/hr (50 mL/hr), IntraVENous, Continuous, Starting on Wed07/21/22 at 2245, For 20 hours Start: 07-18-2022 End: 07-18-2022 magnesium sulfate IVPB 4,000 mg Start: 07-18-2022 End: 07-19-2022 magnesium sulfate 20 GM/500M L infusion Metoclopramide (4 sources) Dopamine-2 Receptor Antagonist Start: 07-21-2022 End: 07-23-2022 take 1 tablet by mouth every six hours as needed metoclopramide (Reglan) tablet 10 mg Start: 07-18-2022 End: 07-18-2022 metoclopramide (Reglan) inje ction 10 mg miSOPROStol 0.2 mg oral tablet (2 sources) Prostaglandin E1 Analog Start: 07-18-2022 End: 07-18-2022 miSOPROStol (Cytotec) tablet 1,000 mcg Start: 07-18-2022 End: 07-18-2022 miSOPROStol (Cytotec) tablet 1,000 mcg 1 ml morphine sulfate 4 mg/ml injection (2 sources) Opioid Agonist Start: 07-18-2022 End: 07-18-2022 morphine sulfate 4 mg Start: 07-18-2022 End: 07-18-2022 morphine sulfate 4 mg NIFEdipine 60 mg osmotic 24 hr extended release oral tablet (20 sources) Dihydropyridine Calcium Channel Holli Start: 07-22-2022 End: 07-23-2022 take 60 mg by mouth once daily 60 mg, Oral, Daily, First dose on Wed07/22/22 at 0900 Do not crush, chew, or split. Start: 07-21-2022 NIFEdipine (Eq v-Procardia XL) 30 mg oral tablet, extended release Dose : 30 mg = 1 tab(s), Oral, qDay, # 30 tab(s), 0 Refill(s) Start Date: 07/21/22 Status: Ordered Start: 07-18-2022 End: 07-21-2023 take 2 tablets by mouth once daily NIFEdipine XL (Procardia XL) 30 MG 24 hr tablet Take 2 tablets (60 mg) by mouth daily. Do not crush, chew, or split. Do not start before July 21, 2022. 60 tablet 2 07/21/2022 07/21/2023 Active Start: 07-18-2022 End: 07-20-2023 take 1 tablet by mouth once daily NIFEdipine XL (Procardia XL) 30 MG 24 hr tablet Take 1 tablet (30 mg) by mouth Nightly. Do not crush, chew, or split. 30 tablet 2 07/20/2022 07/20/2023 Active Start: 07-18-2022 NIFEdipine (Pr ocardia) capsule 10 mg 2 ml ondansetron 2 mg/ml injection (20 sources) Serotonin-3 Receptor Antagonist Start: 06-29-2022 End: 06-29-2022 ondansetron (Zofran) injection 4 mg Start: 04-03-2022 End: 06-29-2022 take 1 tablet by mouth every six hours as needed for nausea ondansetron (Zofran) 4 MG tablet Indications: Nausea and/or Vomiting in Take 1 tablet (4 mg) by mouth every 6 hours as needed for nausea or vomiting. 100 tablet 1 04/03/2022 06/29/2022 Discontinued (Stop taking at discharge) ondansetron ODT (Zofran-ODT) disintegrating tablet 4 mg (4 sources) Start: 07-21-2022 End: 07-23-2022 take 1 tablet by mouth every eight hours as needed for nausea and vomiting ondansetron ODT (Zofran-ODT) disintegrating tablet 4 mg Start: 07-19-2022 End: 07-20-2022 take 1 tablet by mouth every eight hours as needed for nausea and vomiting ondansetron ODT (Zofran-ODT) disintegrating tablet 4 mg oxytocin (Pitocin) 30 units in 500 mL infusion (4 sources) Start: 07-19-2022 End: 07-20-2022 125 tramaine-units/min (125 mL/ hr), IntraVENous, Continuous PRN, Bleeding, Starting on 07/19/22 at 0140, For 48 hours, For Immediate Post Use Only. Give after delivery of placenta and initial 30 unit bolus. Bag 2 of 2: 125cc/hr (125 mu/min) for an additional infusion of 500cc (30 units). Start: 07-17-2022 End: 07-19-2022 oxytocin (Pitocin) 30 units in 500 mL infusion oxytocin bolus from bag 30 Units (2 sources) Start: 07-17-2022 End: 07-19-2022 30 Units, IntraVENous, Administer over 15 Minutes, PRN, Bleeding, Starting on Wed07/17/22 at 2104, Post-Delivery For Immediate Post Use Only. Give after delivery of placenta. Bag 1 of 2: Bolus for bag to infuse at 999 ml/hour for 15 minutes (15 units in 250cc). After initial bolus then decrease rate to 250cc/hr for 1 hour. Then discontinue. polyethylene glycol 3350 29615 mg powder for oral solution (2 sources) Osmotic Laxative Start: 07-21-2022 End: 07-23-2022 take 17 g by mouth every twenty-four hours as needed for constipation 17 g, Oral, Daily PRN, constipation, Starting on Wed07/21/22 at 2228 1st line for treatment of constipation - give scheduled if no bowel movement in past 24 hours. Vit-Fe Fumarate-FA ( VITAMIN PO) (20 sources) End: 01-04-2023 Vit-Fe Fumarate-FA ( VITAMIN PO) Take by mouth. 0 01/04/2023 Discontinued (Therapy completed) Vit-Fe Fumarate-FA ( VITAMIN PO) Take by mouth. 0 Suspended Vit-Fe Fumarate-FA ( VITAMIN PO) Take by mouth. 0 Active VIT/IRON FUM/FOLIC AC ( 05/31 ORAL) (1 source) VIT/IRO N FUM/FOLIC AC ( 05/31 ORAL) Take by mouth once daily. 0 Active Comment on above: Take by mouth once d aily. promethazine hydrochloride 12.5 mg rectal suppository (2 sources) Phenothiazine Start: End: promethazine 12.5 mg rectal suppository Dose : 12.5 mg = 1 supp, Rectal, q6hr, PRN as needed for nausea/vomiting, # 15 supp, 0 Refill(s), Nausea and vomiting Acute pelvic pain Start Date: 12/09/21 Stop Date: 12/14/21 Status: Ordered 5 ml sodium chloride 9 mg/ml injection (6 sources) Start: 023 End: 023 take 5-40 mL intravenously every twelve hours 5-40 mL, IntraVENous, Every 12 hours, First dose on Wed07/21/22 at 2245 For Line Patency: Peripheral IV = 5 mL; Midline or Central Line = 10 mL/lumen. &nb sp;If following IV push medication, administer flush at same rate as the IV push. Flush volume is determined by type of infusion therapy being given. For non-viscous solutions use: Peripher al IV = 5 mL Midlin e or Central Line = 10 mL/lumen &nbs p;For viscous solutions (i.e. blood components, parenteral nutrition, contrast media, or after obtaining blood sample) use: Peripher al IV = 10 mL Midline or Central Line = 20 mL/lumen Start: 07-21-2022 End: 07-23-2022 5-250 mL/hr, IntraVENous, ND N, if patient receiving piggyback infusions and maintenance fluids are not ordered OR KVO fluids to protect IV site / prevent frequent line interruptions / long duration, Starting on Wed07/21/22 at 2228 For piggyback infusion, administer at same rate as piggyback for a total of 25 mL. Enter 25 mL into dose field and piggyback rate into rate field of order. If piggyback is infusing at a rate less than 100 mL/hr, enter 25 mL into dose field and 100 mL/hr into rate field of order. For KVO fluids, enter rate of 20 mL/hr or less into rate field of order. Start: 07-21-2022 End: 07-23-2022 take 5-40 mL intravenously once as needed 5-40 mL, IntraVENous, PRN, line care, After every IV line use, Starting on Wed07/21/22 at 2228 For Line Patency: Peripheral IV = 5 mL; Midline or Central Line = 10 mL/lumen. If following IV push medication, administer flush at same rate as the IV push. Flush volume is determined by type of infusion therapy being given. For non-viscous solutions use: Peripheral IV = 5 mL Midline or Central Line = 10 mL/lumen For viscous solutions (i.e. blood components, parenteral nutrition, contrast media, or after obtaining blood sample) use: Peripheral IV = 10 mL Midline or Central Line = 20 mL/lumen witch gonzález 500 mg/ml medicated pad (2 sources) Start: 07-19-2022 End: 07-20-2022 Topical, As needed, hemorrho ids, For perineal pain or discomfort, Starting on 07/19/22 at 0215, Apply to perineal area. Patient is capable and may self administer at bedside. Problems Active Problems Problem Classification Problem Date Documented Date Episodic/Chronic Abdominal pain (1 source) Pelvic and perineal pain; Translations: [Pelvic and perineal pain] Onset: 12-09-2021 Episodic Disorders usually diagnosed in infancy, childhood, or adolescence (1 source) Adult attention deficit hyperactivity disorder ; Translations: [Other specified behavioral and emotional disorders with onset usually occurring in childhood and adolescence] Onset: 08-12-2017 08-12-2017 Chronic E Codes: Fall (1 source) Fall; Translations: [Unspecified fall, initial encounter] Episodic Hypertension complicating ; childbirth and the puerperium (1 source) Hypertensive disorder; Translations: [Unspecified maternal hypertension, complicating the puerperium] Chronic Menstrual disorders (1 source) Secondary amenorrhea; Translations: [Secondary amenorrhea] Chronic Miscellaneous mental health disorders (1 source) depression; Translations: [ depression] 01-04-2023 Episodic Mood disorders (2 sources) Severe recurrent major depression without psychotic features; Translations: [Major depressive disorder, recurrent severe without psychotic features] Onset: 08-04-2017 08-12-2017 Chronic Mood disorders (2 sources) Mood disorders; Translations: [Depression, unspecified] Onset: 04-03-2022 Other circulatory disease (1 source) Raynaud's disease; Translations: [Raynaud's syndrome without gangrene] Onset: 08-05-2017 08-05-2017 Chronic Other complications of (20 sources) Anemia; Translations: [Anemia complicating , unspecified trimester] Onset: 05-28-2022 06-23-2022 Chronic Other complications of (2 sources) Anemia complicating , unspecified trimester; Translations: [Anemia complicating , unspecified trimester] Onset: 06-19-2022 Chronic Other complications of (1 source) Abdominal pain in ; Translations: [Other specified related conditions, unspecified trimester] Episodic Other complications of (1 source) Hyperemesis gravidarum; Translations: [Mild hyperemesis gravidarum] 09-05-2017 Episodic Residual codes; unclassified (1 source) 17 weeks gestation of ; Translations: [17 WEEKS GESTATION OF ] Onset: 07-28-2018 Unclassified (2 sources) Annual Exam; Translations: [Annual Exam] Onset: 12-31-2022 Unclassified (2 sources) OP Infusion; Translations: [OP Infusion] Onset: 06-29-2022 Unclassified (2 sources) iron infusion Onset: 06-24-2022 Unclassified (2 sources) Routine Visit; Translations: [Routine Visit] Onset: 06-05-2022 Unclassified (2 sources) Vomiting During ; Translations: [Vomiting During ] Onset: 04-20-2022 Past or Other Problems Problem Classification Problem Date Documented Da te Episodic/Chronic Administrative/social admission (1 source) Social problem; Translations: [Problem related to unspecified psychosocial circumstances] Onset: 01-09-2019 01-09-2019 Episodic Gastritis and duodenitis (1 source) Acute gastritis; Translations: [Acute gastritis without bleeding] Onset: 11-03-2018 11-03-2018 Episodic Hypertension complicating ; childbirth and the puerperium (20 sources) Pre-eclampsia; Translations: [Unspecified pre-eclampsia, third trimester] Onset: 07-18-2022 07-18-2022 Episodic Nausea and vomiting (4 sources) Nausea with vomiting, unspecified; Translations: [Nausea and vomiting] Onset: 07-28-2018 Episodic Open wounds of extremities (20 sources) Dog bite of finger; Translations: [Open bite of unspecified finger without damage to nail, initial encounter] Onset: 02-10-2018 Resolved: 07-17-2022 02-10-2018 Episodic Other complications of (1 source) Unspecified infection of urinary tract in , second trimester; Translations: [UNS INF URINARY TRACT PREG 2ND TRI] Onset: 07-28-2018 Episodic Other complications of (3 sources) Vomiting of , unspecified; Translations: [VOMITING OF UNSPECIFIED] Onset: 07-28-2018 Episodic Other complications of (1 source) Mental disorder in mother complicating ; Translations: [Other mental disorders complicating , third trimester] Onset: 12-08-2018 12-08-2018 Episodic Other complications of (1 source) Headache; Translations: [Other specified related conditions, third trimester] Onset: 01-03-2019 01-03-2019 Episodic Other complications of (20 sources) Nausea and vomiting; Translations: [Vomiting of , unspecified] Onset: 09-14-2018 Resolved: 07-17-2022 09-14-2018 Episodic Other complications of (20 sources) Depressive disorder in mother complicating ; Translations: [Other mental disorders complicating , unspecified trimester] Onset: 04-03-2022 04-03-2022 Episodic Other complications of (2 sources) Other mental disorders complicating , unspecified trimester;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 By: #### L D, URIC, JENNIFER URIBE MDW, GFR, MORPH, CMP, MG, CBC #### [address] [address] Neutrophils/100 WBC (Bld) 78.3 % Normal 37.0-80.0 [facility] ([place]) Comment on above: Performed By: #### L D, URIC, ANEUJENNIFER MDW, GFR, MORPH, CMP, MG, CBC #### [address] [address] .GFRon 07-21-2022 GFR 93 ml/min/1.73sqm Normal [facility] ([place]) Comment on above: Result Comment: GFR Population mean for , Non- Americans Ages 20-29 = 116 mL/min/1.73 sq.m. Ages 30-39 = 107 mL/min/1.73 sq.m. Ages 40-49 = 99 mL/min/1.73 sq.m. Ages 50-59 = 93 mL/min/1.73 sq.m. Ages 60-69 = 85 mL/min/1.73 sq.m. Ages 70+ = 75 mL/min/1.73 sq.m. Chronic Kidney Disease: Less than 60 mL/min/1.73 square meters End Stage Renal Disease: Less than 15 mL/min/1.73 square meters Performed By: #### U KEATON, UA #### [address] [address] GFR Non- 77 ml/min/1.73sqm Normal [facility] ([place]) Comment on above: Result Comment: GFR Population mean for , Non- Americans Ages 20-29 = 116 mL/min/1.73 sq.m. Ages 30-39 = 107 mL/min/1.73 sq.m. Ages 40-49 = 99 mL/min/1.73 sq.m. Ages 50-59 = 93 mL/min/1.73 sq.m. Ages 60-69 = 85 mL/min/1.73 sq.m. Ages 70+ = 75 mL/min/1.73 sq.m. Chronic Kidney Disease: Less than 60 mL/min/1.73 square meters End Stage Renal Disease: Less than 15 mL/min/1.73 square meters Performed By: #### AUDREY HORN #### [place] [id number] .MDWon 07-21-2022 Monocyte Distribution Width 18.79 Normal 0.00-20.00 [facility] ([place]) Comment on above: Result Comment: For ED adult patients suspected of sepsis, MDW<=20.0 does not rule out sepsis or risk of sepsis Performed By: #### L D, URIC, ANEU, ADIFF, MDW, GFR, MORPH, CMP, MG, CBC #### [place] [address] .Morphon 07-21-2022 Anisocytosis Ql (Bld) 1+ Normal [facility] ([place]) Comment on above: Performed By: #### Sandro PUGH UA #### [place] [address] Large Platelets Few Normal [facility] ([place]) Comment on above: Performed By: #### AUDREY HORN #### [place] [address] Platelet Estimate Decreased Normal [facility] ([place]) Comment on above: Performed By: #### Sandro PUGH UA #### [place] [address] RBC morphology finding Nom (Bld) See Below Normal [facility] ([place]) Comment on above: Performed By: #### AUDREY HORN #### [place] [address] .NEUABSon 07-21-2022 Neutrophil, Absolute 14.0 10 3/mcL High 2.9-6.2 A [facility] ([place]) Comment on above: Performed By: #### L D, URIC, ANEU, ADIFF, MDW, GFR, MORPH, CMP, MG, CBC #### [place] [address] 36on 07-21-2022 36 Name of caller requesting page: Dr. Flori Aquino Phone number of caller: [phone] Facility requesting page: [facility] Reason for page: Pt recently delivered and is in ER with abnormal labs and pre-eclampsia. Provider paged: Dolly Matta name of paged provider: [facility] Isak Page placed to #: Secure chat Time page was sent or provider contacted: 6:39 pm Method of contact: Secure chat Page content: Pt recently delivered and is now at [facility] with abnormal labs and pre-eclampsia. CB Dr. Flori Aquino [phone] Normal [facility] CAREPLNon 07-21-2022 CAREPLN Problem: Pain - Adul t Goal: Verbalizes/displays adequate comfort level or baseline comfort level Outcome: Progressing Problem: Safety - Adult Goal: Free from fall injury Outcome: Progressing Problem: Chronic Conditions and Co-morbidities Goal: Patient's chronic conditions and co-morbidity symptoms are monitored and maintained or improved Outcome: Progressing Normal [facility] CBCon 07-21-2022 Erythrocyte distribution width (RBC) [Ratio] 23.9 % High 11.5-14.5 [facility] ([place]) Comment on above: Performed By: #### L D, URIC, JENNIFER URIBE MDW, GFR, MORPH, CMP, MG, CBC #### [address] [address] Hematocrit (Bld) [Volume fraction] 30.5 % Low 37.0-47.0 [facility] ([place]) Comment on above: Performed By: #### L D, URIC, JENNIFER URIBE MDW, GFR, MORPH, CMP, MG, CBC #### [address] [address] Hgb 9.9 G/dL Low 12.0-16.0 [facility] ([place]) Comment on above: Performed By: #### L D, URIC, ANEUJENNIFER MDW, GFR, MORPH, CMP, MG, CBC #### [address] [address] MCH (RBC) [Entitic mass] 26.3 pg Low 27.0-31.2 [facility] ([place]) Comment on above: Performed By: #### L D, URIC, ANEU, ADIFF, MDW, GFR, MORPH, CMP, MG, CBC #### [address] [address] MCHC 32.4 G/dL Low 33.0-37.0 [facility] ([place]) Comment on above: Performed By: #### L D, URIC, ANEU, ADIFF, MDW, GFR, MORPH, CMP, MG, CBC #### [address] [address] MCV (RBC) [Entitic vol] 81.1 fL Normal 80.0-94.0 [facility] ([place]) Comment on above: Performed By: #### L D, URIC, ANEU, ADIFF, MDW, GFR, MORPH, CMP, MG, CBC #### [address] [address] Platelet 90 10 3/mcL Low 130-400 [facility] ([place]) Comment on above: Performed By: #### L D, URIC, ANEU, ADIFF, MDW, GFR, MORPH, CMP, MG, CBC #### [address] [address] Platelet mean volume (Bld) [Entitic vol] 10.1 fL Normal 7.4-10.4 [facility] ([place]) Comment on above: Performed By: #### L D, URIC, ANEU, ADIFF, MDW, GFR, MORPH, CMP, MG, CBC #### [address] [address] RBC 3.76 10 6/mcL Low 4.20-5.40 [facility] ([place]) Comment on above: Performed By: #### L D, URIC, ANEU, ADIFF, MDW, GFR, MORPH, CMP, MG, CBC #### [address] [address] WBC 17.9 10 3/mcL High 4.6-10.8 [facility] ([place]) Comment on above: Performed By: #### L D, URIC, ANEU, ADADAIR, MDW, GFR, MORPH, CMP, MG, CBC #### [address] [address] CMPon 07-21-2022 Albumin Level 2.6 G/dL Low 3.5-5.0 [facility] ([place]) Comment on above: Performed By: #### Sandro PUGH UA #### [address] [address] Albumin/Globulin [Mass ratio] 0.8 {ratio} Low 1.1-2.5 [facility] ([place]) Comment on above: Performed By: #### Sandro PUGH UA #### [place] [id number] ALP [Catalytic activity/Vol] 257 U/L High 40-135 [facility] ([place]) Comment on above: Performed By: #### Sandro PUGH UA #### [address] [address] ALT [Catalytic activity/Vol] 88 U/L High 14-59 [facility] ([place] Comment on above: Performed By: #### Sandro PUGH UA #### [address] [address] AST [Catalytic activity/Vol] 98 U/L High 10-40 [facility] ([place]) Comment on above: Performed By: #### Sandro PUGH UA #### [address] [address] Bili Total 0.3 mg/dL Normal 0.2-1.0 [facility] ([place]) Comment on above: Result Comment: Use of this assay is not recommended for patients undergoing treatment with eltrombopag due to the potential for falsely elevated results. Performed By: #### Sandro PUGH UA #### [address] [address] BUN/Creatinine Ratio 18 ratio Normal 7-27 [facility] ([place]) Comment on above: Performed By: #### U AMICAO, UA #### [address] [address] Calcium [Mass/Vol] 8.2 mg/dL Low 8.4-10.2 [facility] ([place]) Comment on above: Performed By: #### U AMICAO, UA #### [address] [address] Chloride [Moles/Vol] 105 mmol/L Normal 98-107 [facility] ([place]) Comment on above: Performed By: #### U AMICAO, UA #### [address] [address] CO2 [Moles/Vol] 26 mmol/L Normal 22-29 [facility] ([place] Comment on above: Performed By: #### U AMICAO, UA #### [address] [address] Creatinine [Mass/Vol] 0.90 mg/dL Normal 0.55-1.02 [facility] ([place]) Comment on above: Performed By: #### U AMICAO, UA #### [address] [address] Electrolyte Balance 8.0 mEq/L Normal 4.0-15.0 [facility] ([place]) Comment on above: Performed By: #### U AMICAO, UA #### [address] [address] Globulin 3.3 G/dL Normal [facility] ([place]) Comment on above: Performed By: #### U AMICAO, UA #### [address] [address] Glucose [Mass/Vol] 94 mg/dL Normal 70-105 [facility] ([place]) Comment on above: Performed By: #### U AMICAO, UA #### [address] [address] Potassium [Moles/Vol] 4.3 mmol/L Normal 3.5-5.1 [facility] ([place]) Comment on above: Performed By: #### U AMICAO, UA #### [facility] [address] [place], [place] [address] Sodium [Moles/Vol] 139 mmol/L Normal 136-145 [facility] ([place]) Comment on above: Performed By: #### U AMICAO, UA #### [facility] [address] [place], [place] [address] Total Protein 5.9 G/dL Low 6.4-8.2 [facility] ([place] Comment on above: Performed By: #### U AMICAO, UA #### [place] [address] [place], [place] [address] Urea nitrogen [Mass/Vol] 16 mg/dL Normal 7-18 [facility] ([place] Comment on above: Performed By: #### U AMICAO, UA #### [place] [address] [place], [place] [address] LABORATORYOrdered By: Zully Alcala on 07-21-2022 Appearance (U) Clear (07/21/22 6:29 PM) Invalid Interpretation Code Clear AO Auto Urine SS Bilirubin Ql (U) Negative (07/21/22 6:29 PM) Invalid Interpretation Code Negative AO Auto Urine SS Color (U) Yellow (07/21/22 6:29 PM) Invalid Interpretation Code AO Auto Urine SS Glucose Test strip (U) [Mass/Vol] Negative Invalid Interpretation Code Negativemg/ dL AO Auto Urine SS Hemoglobin Auto test strip (U) [Mass/Vol] Trace *ABN* (07/21/22 6:29 PM) Invalid Interpretation Code Negative AO Auto Urine SS Ketones Ql (U) Negative Invalid Interpretation Code Negativemg/ dL AO Auto Urine SS UA Leuk Est Negative (07/21/22 6:29 PM) Invalid Interpretation Code Negative AO Auto Urine SS UA Nitrite Negative (07/21/22 6:29 PM) Invalid Interpretation Code Negative AO Auto Urine SS UA pH 7.0 (07/21/22 6:29 PM) Invalid Interpretation Code 5.0 - 8.0 AO Auto Urine SS UA Protein Negative Invalid Interpretation Code Negativemg/ dL AO Auto Urine SS UA Spec Grav 1.020 (07/21/22 6:29 PM) Invalid Interpretation Code 1.015-1.025 AO Auto Urine SS UA Specimen Type Clean Catch (07/21/22 6:29 PM) Invalid Interpretation Code AO Auto Urine SS UA Urobilinogen 0.2 E.U./dL Invalid Interpretation Code 0.2-1.0E.U. /dL AO Auto Urine SS Anisocytosis Ql (Bld) 1+ (07/21/22 5:44 PM) Invalid Interpretation Code AO Hematology S Basophil, Absolute 0.1 103/mcL Invalid Interpretation Code 0.0 - 0.2 10^3/mcL AO Hematology S Basophils/100 WBC (Bld) 0.4 % Invalid Interpretation Code 0.0 - 2.5 % AO Hematology S Eosinophil, Absolute 0.3 103/mcL Invalid Interpretation Code 0.0 - 0.4 10^3/mcL AO Hematology S Eosinophils/100 WBC (Bld) 1.5 % Invalid Interpretation Code 0.0 - 7.0 % AO Hematology S Erythrocyte distribution width (RBC) [Ratio] 23.9 % Invalid Interpretation Code 11.5 - 14.5 % AO Hematology S Hematocrit (Bld) [Volume fraction] 30.5 % Invalid Interpretation Code 37.0 - 47.0 % AO Hematology S Hemoglobin (Bld) [Mass/Vol] 9.9 G/dL Invalid Interpretation Code 12.0 - 16.0 G/dL AO Hematology S Large Platelets Few (07/21/22 5:44 PM) Invalid Interpretation Code AO Hematology S Lymphocyte, Absolute 2.9 103/mcL Invalid Interpretation Code 0.8 - 3.9 10^3/mcL AO Hematology S Lymphocytes/100 WBC (Bld) 16.3 % Invalid Interpretation Code 10.0 - 50.0 % AO Hematology S MCH (RBC) [Entitic mass] 26.3 pg Invalid Interpretation Code 27.0 - 31.2 pg AO Hematology S MCHC 32.4 G/dL Invalid Interpretation Code 33.0 - 37.0 G/dL AO Hematology S MCV (RBC) [Entitic vol] 81.1 fL Invalid Interpretation Code 80.0 - 94.0 fL AO Hematology S Monocyte distribution width Auto (Bld) [Entitic vol] 18.79 Invalid Interpretation Code 0.00 - 20.00 AO Hematology S Comment on above: Result Comment: For ED adult patients suspected of sepsis, MDW<=20.0 does not rule out sepsis or risk of sepsis Monocyte, Absolute 0.6 103/mcL Invalid Interpretation Code 0.2 - 1.0 10^3/mcL AO Hematology S Monocytes/100 WBC (Bld) 3.5 % Invalid Interpretation Code 1.7 - 13.0 % AO Hematology S Neutrophil, Absolute 14.0 103/mcL Invalid Interpretation Code 2.9 - 6.2 10^3/mcL AO Hematology S Neutrophils/100 WBC (Bld) 78.3 % Invalid Interpretation Code 37.0 - 80.0 % AO Hematology S Platelet Estimate Decreased (07/21/22 5:44 PM) Invalid Interpretation Code AO Hematology S Platelet mean volume (Bld) [Entitic vol] 10.1 fL Invalid Interpretation Code 7.4 - 10.4 fL AO Hematology S Platelets (Bld) [#/Vol] 90 103/mcL Invalid Interpretation Code 130 - 400 10^3/mcL AO Hematology S RBC (Bld) [#/Vol] 3.76 106/mcL Invalid Interpretation Code 4.20 - 5.40 10^6/mcL AO Hematology S RBC morphology finding Nom (Bld) See Below (07/21/22 5:44 PM) Invalid Interpretation Code AO Hematology S WBC (Bld) [#/Vol] 17.9 103/mcL Invalid Interpretation Code 4.6 - 10.8 10^3/mcL AO Hematology S LABORATORYOrdered By: SYSTEM SYSTEM on 07-21-2022 Albumin BCP dye [Mass/Vol] 2.6 G/dL Invalid Interpretation Code 3.5 - 5.0 G/dL AO ADM SS Albumin/Globulin [Mass ratio] 0.8 {ratio} Invalid Interpretation Code 1.1 - 2.5 ratio AO ADM SS ALP [Catalytic activity/Vol] 257 U/L Invalid Interpretation Code 40 - 135 U/L AO ADM SS ALT With P-5'-P [Catalytic activity/Vol] 88 U/L Invalid Interpretation Code 14 - 59 U/L AO ADM SS AST With P-5'-P [Catalytic activity/Vol] 98 U/L Invalid Interpretation Code 10 - 40 U/L AO ADM SS Bilirubin [Mass/Vol] 0.3 mg/dL Invalid Interpretation Code 0.2 - 1.0 mg/dL AO ADM SS Calcium [Mass/Vol] 8.2 mg/dL Invalid Interpretation Code 8.4 - 10.2 mg/dL AO ADM SS Chloride [Moles/Vol] 105 mmol/L Invalid Interpretation Code 98 - 107 mmol/L AO ADM SS CO2 [Moles/Vol] 26 mmol/L Invalid Interpretation Code 22 - 29 mmol/L AO ADM SS Creatinine [Mass/Vol] 0.90 mg/dL Invalid Interpretation Code 0.55 - 1.02 mg/dL AO ADM SS Electrolyte Balance 8.0 mEq/L Invalid Interpretation Code 4.0 - 15.0 mEq/L AO ADM SS GFR 93 ml/min/1.73sqm Invalid Interpretation Code AO Chemistry S GFR Non- 77 ml/min/1.73sqm Invalid Interpretation Code AO Chemistry S Globulin 3.3 G/dL Invalid Interpretation Code AO ADM SS Glucose [Mass/Vol] 94 mg/dL Invalid Interpretation Code 70 - 105 mg/dL AO ADM SS LDH [Catalytic activity/Vol] 581 U/L Invalid Interpretation Code 81 - 234 U/L AO ADM SS Magnesium [Mass/Vol] 2.4 mg/dL Invalid Interpretation Code 1.8 - 2.4 mg/dL AO ADM SS Potassium [Moles/Vol] 4.3 mmol/L Invalid Interpretation Code 3.5 - 5.1 mmol/L AO ADM SS Protein [Mass/Vol] 5.9 G/dL Invalid Interpretation Code 6.4 - 8.2 G/dL AO ADM SS Sodium [Moles/Vol] 139 mmol/L Invalid Interpretation Code 136 - 145 mmol/L AO ADM SS Urea nitrogen [Mass/Vol] 16 mg/dL Invalid Interpretation Code 7 - 18 mg/dL AO ADM SS Urea nitrogen/Creatinine [Mass ratio] 18 ratio Invalid Interpretation Code 7 - 27 ratio AO ADM SS Uric Acid Lvl 6.8 mg/dL Invalid Interpretation Code 2.6 - 6.2 mg/dL AO ADM SS LDHon 07-21-2022 LDH 581 U/L High 81-234 [facility] ([place] Comment on above: Performed By: #### L D, URIC, ANEU, ADADAIR, MDW, GFR, MORPH, CMP, MG, CBC #### [address] [address] MGon 07-21-2022 Magnesium [Mass/Vol] 2.4 mg/dL Normal 1.8-2.4 [facility] ([place]) Comment on above: Performed By: #### U AMICAO, UA #### [address] [address] UAon 07-21-2022 Color (U) Yellow Normal [facility] ([place]) Comment on above: Performed By: #### Ronny FR, BMP #### [place] [address] [address] Glucose (U) [Mass/Vol] Negative Normal Negative [facility] ([place]) Comment on above: Performed By: #### G FR, BMP #### [place] [address] [address] Ketones Ql (U) Negative Normal Negative [facility] ([place]) Comment on above: Performed By: #### Ronny FR, BMP #### [place] [id number] UA Appear Clear Normal Clear [facility] ([place]) Comment on above: Performed By: #### Ronny FR, BMP #### [place] [address] [address] UA Blood Trace Abnormal Negative [facility] ([place]) Comment on above: Performed By: #### Ronny FR, BMP #### [place] [address] [address] UA Leuk Est Negative Normal Negative [facility] ([place]) Comment on above: Performed By: #### Ronny FR, BMP #### [place] [address] [address] UA Nitrite Negative Normal Negative [facility] ([place]) Comment on above: Performed By: #### Ronny FR, BMP #### [place] [address] [address] UA pH 7.0 Normal 5.0 - 8.0 [facility] ([place] Comment on above: Performed By: #### G FR, BMP #### [place] [id number] UA Protein Negative Normal Negative [facility] ([place]) Comment on above: Performed By: #### G FR, BMP #### [place] [address] [address] UA Spec Grav 1.020 Normal 1.015-1.025 [facility] ([place] Comment on above: Performed By: #### G FR, BMP #### [place] [address] [place], [place] [address] UA Specimen Type Clean Catch Normal [facility] ([place]) Comment on above: Performed By: #### G FR, BMP #### [place] [address] [place], [place] [address] UA Urobilinogen 0.2 E.U./dL Normal 0.2-1.0 [facility] ([place] Comment on above: Performed By: #### G FR, BMP #### [place] [address] [place], [place] [address] Urobilinogen (U) [Mass/Vol] Negative Normal Negative [facility] ([place]) Comment on above: Performed By: #### G FR, BMP #### [address] [address] URICon 07-21-2022 Uric Acid Lvl 6.8 mg/dL High 2.6-6.2 [facility] Comment on above: Performed By: #### U AMICAO, UA #### [address] [address] 36on 07-20-2022 36 Please call patient to be seen in 3 days for BP check. Thanks! Normal [facility] 42on 07-20-2022 42 Met with patient to check in. Patient plans to exclusively pump instead of latching baby. Patient has been pumping and feeding the breastmilk to babies, but is still needing to supplement. Patient is comfortable with this plan, and has been giving babies 30ml of formula or breastmilk per feed. Reminded patient that we are here to help, even when they are discharged, reviewed our phone number, and encouraged patient to call with questions, or if she would like to join us in group. Patient denies further questions. Will continue to monitor and encourage. Normal [facility] CARECOORDon 07-20-2022 CARECOORD consult due to hx of thc. Met with mother of baby/mob at bedside. Mob delivered twins (Frederic and Rohini Clarke). Father of baby Gino Mir 12[birth year]01-94 in chair holding one baby. Fob appeared very supportive. Mob also attentive to babies. Augie and edgar live together with a roommate, as well as augie's other dtr Viktoria Marvin 01-09-19. Fokaitlyn has another dtr Sachin alberto 07-26-05 who he adopted and has shared custody of with child's grandmother. Augie states she is prepared for twins with carseats, crib, basinetts, clothing, diapers etc and is signed up for WIC. Educated on safe sleep practices. Augie reports some pp depression after of first child, however, she did not feel the need to seek tx. States mood currently stable. Discussed thc use. She admits to smoking almost daily to help with nausea and sleep. States the thc is kept in a separate room upstairs and locked up. States when she uses it is away from dtr either in that room or outside on [facility]. States plans to cut down now that she has delivered as her heartburn will be better. She denied use of any other drugs. States last use was 07-16-22.Tox on 07-17-22 was negative for all substances including thc. Sw discussed negative effects of continued use and also discussed that a referral will be made to [facility]. Parents expressed understanding and states they were involved very briefly a couple of years ago due to edgar's daughter visiting from [place] and had not yet enrolled in school. OB resources discussed. [facility] closed today due to Presidents day, SW will make referral tomorrow and they can follow in community. [facility] 26 [facility] for induction of labor for di/di twins. Vaginal delivery. History of THC. Patient states she used during . Negative at delivery. Social service referral. Explained Marijuana use during can be harmful to your baby's health. The chemicals in marijuana (in particular, THC) pass through your system to your baby and can negatively affect your baby's development. Some research shows that using marijuana while you are can cause health problems in newborns-- including low weight and developmental problems. Research shows marijuana use during may make it hard for your child to pay attention or to learn, these issues may only become noticeable as your child grows older Chemicals from marijuana can be passed to your baby through breast milk. THC is stored in fat and is slowly released over time, meaning an could be exposed for a longer period of time. Patient is independent and has insurance. She is prepared with her baby supplies. Denies any needs for housing, transportation or food. Discussion on the A. B. C's of safe sleep. Always place your baby on his or her back to sleep, use a firm sleep surface and your baby should not sleep in an adult bed, on a couch or chair. Keep soft objects, toys and loose bedding out of your baby's sleep area. Reviewed post depression. It is common to have blues. This is a normal response to many of the hormonal changes, stress and lack of sleep that go with raising a and physically recovering from the . Don't hesitate to talk to your provider with any concerns. There are resources in your home going booklet. To help prevent germs from spreading to you and your baby, make sure everyone washes their hands before they handle your . Avoid crowds, and keep infant away from sick people, anyone who is sick with a cough or fever, including family members. To be discharged to home. Denies any concerns at this time. Normal [facility] - Drug toxicology Ordered By: Rain Lewis on 07-20-2022 Cannabinoids Screen (U) [Mass/Vol] Negative [facility] No Panel InformationOrdered By: Rain Lewis on 07-20-2022 [facility] Progress Noteon 07-20-2022 Progress Note VAGINAL DELIVERY POST DAY # 2 Catalina Marvin, 26 y.o. This patient was seen & examined today. Her was complicated by: Patient Active Problem List Diagnosis Dichorionic diamniotic twin in second trimester care, antepartum Depression affecting Anemia during Dichorionic diamniotic twin gestation (spontaneous vaginal delivery) Pre-eclampsia in third trimester Today she is doing well without any chief complaint. Her lochia is light. She denies Headache, Chest Pain, Vision Changes, and Shortness of Breath. She is ambulating well. She is tolerating solids. Vital Signs: Vitals: 07/19/22 1607 07/19/22 1701 07/19/22202607/20/22 0027 BP: (!) 143/104 (!) 143/105 (!) 143/97 (!) 140/91 BP Location: Right arm Patient Position: Lying Pulse: 71 77 72 80 Resp: 18 16 16 Temp: 36.3 ?C (97.4 ?F) 36.6 ?C (97.9 ?F) 36.4 ?C (97.5 ?F) TempSrc: Temporal Temporal Temporal SpO2: 98% 97% 99% Weight: Height: Physical Exam: GENERAL APPEARANCE: alert, well appearing, in no apparent distress ABDOMEN : benign non-tender, without masses or organomegaly palpable UTERUS : normal size, well involuted, firm, non-tender Lab: Lab Results Component Value Date HGB 11.0 (L) 07/17/2022 Lab Results Component Value Date HCT 34.0 (L) 07/17/2022 O Antibody Screen: No results found for: LABANTI No results found for: RUBELLAIGG LABOR DELIVERY ??? SCD's ONLY (labor through ambulation) SCD's PLUS Prophylactic Anticoagulation until discharge SCD's PLUS Prophylactic Anticoagulation for 6 weeks SCD's PLUS Therapeutic Anticoagulation for 6 weeks Vaginal Delivery [] BMI ? 40 kg/m2 Delivery All patients Vaginal Delivery [] BMI ? 40 kg/m2 AND [] Antepartum hospitalization ? 72 hours within the past month Delivery 1 Major Risk Factor: [] BMI ? 35 kg/m2 [] Low Risk Thrombophilia [] PPH+RBCs, IR, or operation [] Infection+Antibiotics [] Antepartum hospitalization ? 72 hours within the past month [] PMH: Sickle Cell, SLE, Cardiac Dz, Active IBD, Active Cancer, Nephrotic Syndrome OR 2 Minor Risk Factors: [] Multiple gestation [] Age > 40 [] PPH ? 1,000cc [] (+)FMH of VTE [] Smoker [] Preeclampsia [] BMI ? 40 kg/m2 AND [] Low Risk Thrombophilia OR ANY OF THE FOLLOWING: [] High Risk Thrombophilia without prior VTE [] Low Risk Thrombophilia with (+)FMH of VTE [] Any single prior VTE ANY OF THE FOLLOWING: [] Already on LMWH/UFH [] Multiple prior VTE [] High Risk Thrombophilia with prior VTE Low Risk Thrombophilia: FVL (heterozygous), Prothrombin (heterozygous), Protein C, Protein S High Risk Thrombophilia: FVL (homozygous), Prothrombin (homozygous), FVL+Prothrombin (heterozygous), Antithrombin III, APLS Assessment/Plan: Catalina Marvin is PPD # 2 s/p of di/di twins Care - Doing well, VSS - Female x2 - both, breast and bottle feeding - Contraception: Per Private Attending - Encourage ambulation - VTE Prophylaxis: Not Indicated PreEwSF - s/p 24 hours magnesium sulfate for seizure prophylaxis, turned off last evening at 2100 - Asymptomatic this AM - Current oral anti-hypertensive regimen: Procardia XL 60 mg daily and 30 mg nightly - Has been persistently mild range, will monitor today Disposition: Anticipate discharge today per private attending's discretion. Based on my clinical assessment, this patient is safe for self discharge (does not need transport by wheelchair) if she so chooses. Provider's Name: DO MARYBETH Ling DO 07/20/2022, 6:06 AM Hospital Care (Independent): I independently saw and evaluated the patient. I agree with the findings and plan of care as documented in the resident's note. Patient seen and examined. Patient is doing well today. She reports that she had a mild headache which resolved with rest and Tylenol/ibuprofen. BP normotensive to low mild range today. Patient is interested in discharge home today. Okay to be discharged home on Procardia 60/30 and follow-up in the office in 2 to 3 days for blood pressure check. Denies any need for control today. [facility] 42on 07-19-2022 42 PT seen regarding of full term twins. These are babies 2 and 3 for pt. She BF older child (now 5 YO) for 1 yr and reports that she made plenty of milk. States that both babies BF well several times through the night and they have both voided and stooled. Assist given with BF of baby A. Placed skin to skin prone; pt laid back. Positioning basics and latching technique discussed; reinforced importance of deep, wide latch. Baby with off and on latching, but no consistent, rhythmic suckling. Baby appears very sleepy and not intereseted; attempted at breast x 15 minutes. Pt is able to hand express effectively. I encouraged pt to hand express and finger feed drops to baby at this time. Instructed to feed babies on demand, according to cues and at least 8 x in 24 hours (after the first 24). If no cues noted and three or more hours have passed since last feed, pt told to place baby skin to skin, offer the breast and call for assistance if no latching. Hunger and satiety behaviors discussed. Skin to skin positioning for all breastfeeds encouraged. Discussed benefits of skin to skin contact on milk production and feeding behaviors. Demand and supply system of milk production discussed. Pt told to call [facility] tomorrow to obtain insurance covered breast pump. Family shown how to use wall touch pad to call for LC. Pt and family receptive to all education. [facility] Progress Noteon 07-19-2022 Progress Note Up to bathroom to vo id pt called for help for dizziness and warm. Assisted to bed per nurse tech and vital signs obtained. In to room to assess pt per request of tech. Pt states that she feels better now being back in bed. Blood pressure is in range of where she has been running today. Will report to assigned nurse. Normal [facility] Progress Note Nutrition rescreen completed. Patient assigned a level 1. Normal [facility] Progress Note ---- -------- Attestation signed by Dolly Saldivar MD at 07/19/2022 11:41 AM Hospital Care (Independent): I independently saw and evaluated the patient. I agree with the findings and plan of care as documented in the resident's note. -------- VAGINAL DELIVERY POST DAY # 1 Catalina Marvin, 26 y.o. This patient was seen & examined today. Her was complicated by: Patient Active Problem List Diagnosis Dichorionic diamniotic twin in second trimester care, antepartum Depression affecting Anemia during Dichorionic diamniotic twin gestation (spontaneous vaginal delivery) Pre-eclampsia in third trimester Today she is doing well without any chief complaint. Her lochia is light. She denies Headache, Chest Pain, Vision Changes, and Shortness of Breath. She is ambulating well. She is tolerating solids. Vital Signs: Vitals: 07/19/22 0506 07/19/22 0823 07/19/22 0827 07/19/22 0929 BP: (!) 157/109 (!) 157/109 (!) 149/104 BP Location: Right arm Patient Position: Sitting Pulse: 70 83 73 Resp: 20 18 Temp: 36.2 ?C (97.1 ?F) 36.9 ?C (98.4 ?F) TempSrc: Temporal Temporal SpO2: 98% 98% 97% Weight: Height: Physical Exam: GENERAL APPEARANCE: alert, well appearing, in no apparent distress ABDOMEN : benign non-tender, without masses or organomegaly palpable EXTREMITIES: no redness or tenderness in the calves or thighs, no edema NEUROLOGIC: alert, oriented, normal speech, no focal findings or movement disorder noted UTERUS : normal size, well involuted, firm, non-tender Lab: Lab Results Component Value Date HGB 11.0 (L) 07/17/2022 Lab Results Component Value Date HCT 34.0 (L) 07/17/2022 O Antibody Screen: No results found for: LABANTI No results found for: RUBELLAIGG LABOR DELIVERY ??? SCD's ONLY (labor through ambulation) SCD's PLUS Prophylactic Anticoagulation until discharge SCD's PLUS Prophylactic Anticoagulation for 6 weeks SCD's PLUS Therapeutic Anticoagulation for 6 weeks Vaginal Delivery [] BMI ? 40 kg/m2 Delivery All patients Vaginal Delivery [] BMI ? 40 kg/m2 AND [] Antepartum hospitalization ? 72 hours within the past month Delivery 1 Major Risk Factor: [] BMI ? 35 kg/m2 [] Low Risk Thrombophilia [] PPH+RBCs, IR, or operation [] Infection+Antibiotics [] Antepartum hospitalization ? 72 hours within the past month [] PMH: Sickle Cell, SLE, Cardiac Dz, Active IBD, Active Cancer, Nephrotic Syndrome OR 2 Minor Risk Factors: [] Multiple gestation [] Age > 40 [] PPH ? 1,000cc [] (+)FMH of VTE [] Smoker [] Preeclampsia [] BMI ? 40 kg/m2 AND [] Low Risk Thrombophilia OR ANY OF THE FOLLOWING: [] High Risk Thrombophilia without prior VTE [] Low Risk Thrombophilia with (+)FMH of VTE [] Any single prior VTE ANY OF THE FOLLOWING: [] Already on LMWH/UFH [] Multiple prior VTE [] High Risk Thrombophilia with prior VTE Low Risk Thrombophilia: FVL (heterozygous), Prothrombin (heterozygous), Protein C, Protein S High Risk Thrombophilia: FVL (homozygous), Prothrombin (homozygous), FVL+Prothrombin (heterozygous), Antithrombin III, APLS Assessment/Plan: Catalina Marvin is PPD # 1 s/p of di/di twins Care - Doing well, VSS - female x2 - Contraception: Per Private Attending - Encourage ambulation - VTE Prophylaxis: Not Indicated PreEwSF -Mag remains on, will come off this evening around 2100 -BP high mild range this AM -Will titrate procardia XL from 30mg daily to 60mg daily -Asymptomatic this AM Disposition: Continue current care. Based on my clinical assessment, this patient is safe for self discharge (does not need transport by wheelchair) if she so chooses. Provider's Name: DO Los Ling MD 07/19/2022, 11:24 AM [facility] CAREPLNon 07-18-2022 CAREPLN Problem: Vaginal Bir th or Section Goal: and maternal status remain reassuring during the process Outcome: Completed Problem: Pain - Adult Goal: Verbalizes/displays adequate comfort level or baseline comfort level Outcome: Completed Problem: Infection - Adult Goal: Absence of infection at discharge Outcome: Completed Goal: Absence of infection during hospitalization Outcome: Completed Goal: Absence of fever/infection during anticipated neutropenic period Outcome: Completed Problem: Safety - Adult Goal: Free from fall injury Outcome: Completed Problem: Discharge Planning Goal: Discharge to home or other facility with appropriate resources Outcome: Completed Normal [facility] Comprehensive metabolic 1998 panelon 07-18-2022 Albumin [Mass/Vol] 3.2 g/dL Low 3.5 - 5.0 g/dL [facility] ALP [Catalytic activity/Vol] 295 U/L High 38 - 126 U/L [facility] ALT [Catalytic activity/Vol] 12 U/L 0 - 34 U/L [facility] Anion gap [Moles/Vol] 6 mmol/L 3 - 13 mmol/L [facility] AST [Catalytic activity/Vol] 52 U/L High 15 - 46 U/L [facility] Bilirubin [Mass/Vol] 0.7 mg/dL 0.2 - 1 .3 mg/dL [facility] Calcium [Mass/Vol] 8.7 mg/dL 8.4 - 10. 4 mg/dL [facility] Chloride [Moles/Vol] 106 mmol/L 98 - 10 7 mmol/L [facility] CO2 [Moles/Vol] 23 mmol/L 22 - 30 mmol/L [facility] Creatinine [Mass/Vol] 0.87 mg/dL 0.52 - 1.04 mg/dL [facility] GFR/1.73 sq M.predicted MDRD (S/P/Bld) [Vol rate/Area] - PINF [facility] Comment on above: Calculation based on the Chronic Kidney Disease Epidemiology Collaboration (CKD-EPI) equation refit without adjustment for race Glucose [Mass/Vol] 86 mg/dL 70 - 100 mg/dL [facility] Interpretation and review of laboratory results Abnormal [facility] Potassium [Moles/Vol] 4.5 mmol/L 3.5 - 5.1 mmol/L [facility] Protein [Mass/Vol] 6.3 g/dL 6.3 - 8.2 g/dL [facility] Sodium [Moles/Vol] 135 mmol/L 135 - 145 mmol/L [facility] Urea nitrogen [Mass/Vol] 16 mg/dL 7 - 17 mg/dL [facility] Slightly Hemolyzed. Interpret K+, ALKP, AST, TP, ALB with caution. [facility] Creatinine (U) [Mass/Vol]on 07-18-2022 CREATININE, URINE 132.6 mg/dL No Range [facility] Labor and Delivery Noteon 02 -18-2023 Labor and Delivery Note -------- Attestation signed by Dolly Saldivar MD at 07/18/2022 10:57 PM Procedures or Surgery: I was present for all raphael elements of the procedure or surgery as described in the resident note. -------- Vaginal Delivery Note Department of Obstetrics and Gynecology Patient: Catalina Marvin : 1995 Date of delivery: 07/18/2022 Pre-operative Diagnosis: Catalina Santiago at 38w1d 1. Term 2. Di/Di Twins 3. PreEwoSF Post-operative Diagnosis: Live Born female, Live Born female Delivering General Car Supervisor Yard & First Officer(s): Dr. Dolly Saldivar; Dr. Linwood Garcia Infant Information: Information for the patient's : Thomas Marvin [[id number]] Information for the patient's : Thomas Marvin TWO [[id number]] Information for the patient's : Thomas Marvin [[id number]] Information for the patient's : Thomas Marvin TWO [[id number]] Description: normalx2 Meconium Noted: No Anesthesia: epidural anesthesia Complications: None Application and Delivery: Catalina Santiago at 38w1d admitted for IOL for Di/Di twins. Her labor course was complicated as she met criteria for PreEwoSF during her labor course with mild range Bps and an elevated UPC. She was induced with Cytotec, FB, AROM, and Pitocin. She made change to complete and was taken to the OR for delivery. Deedee manriquez was called. She was known to be GBS negative and received no prophylaxis. After pushing with contractions the head delivered Cephalic, left occiput anterior over an intact perineum. A nuchal cord was not present. The anterior, then posterior shoulder delivered easily and atraumatically followed by the rest of the . The was placed on the maternal abdomen and attended by the RN for evaluation. The infant was stimulated and dried. The cord was clamped and cut. Baby B was then evaluated and found to be cephalic. AROM was performed at that time for clear fluid. Pt pushed with contractions and the head delivered cephalic, right occiput anterior over an intact perineum. A nuchal cord was not present. The anterior and then posterior shoulder delivered easily and atraumatically followed by the rest of the infant. The was placed on the maternal abdomen and attended by the RN for evaluation. The was stimulated and dried. The cord was clamped and cut. The delivery of the placenta was spontaneous and appeared intact. Pitocin was started. The vagina was swept of all clots and debris. The perineum and vagina were evaluated. A No lacerations were found.. All counts were correct. Mother and baby tolerated procedure well. EBL: 300ml QBL: VTE Prophylaxis: Not Indicated LABOR DELIVERY ??? SCD's ONLY (labor through ambulation) SCD's PLUS Prophylactic Anticoagulation until discharge SCD's PLUS Prophylactic Anticoagulation for 6 weeks SCD's PLUS Therapeutic Anticoagulation for 6 weeks Vaginal Delivery [] BMI ? 40 kg/m2 Delivery All patients Vaginal Delivery [] BMI ? 40 kg/m2 AND [] Antepartum hospitalization ? 72 hours within the past month Delivery 1 Major Risk Factor: [] BMI ? 35 kg/m2 [] Low Risk Thrombophilia [] PPH+RBCs, IR, or operation [] Infection+Antibiotics [] Antepartum hospitalization ? 72 hours within the past month [] PMH: Sickle Cell, SLE, Cardiac Dz, Active IBD, Active Cancer, Nephrotic Syndrome OR 2 Minor Risk Factors: [] Multiple gestation [] Age > 40 [] PPH ? 1,000cc [] (+)FMH of VTE [] Smoker [] Preeclampsia [] BMI ? 40 kg/m2 AND [] Low Risk Thrombophilia OR ANY OF THE FOLLOWING: [] High Risk Thrombophilia without prior VTE [] Low Risk Thrombophilia with (+)FMH of VTE [] Any single prior VTE ANY OF THE FOLLOWING: [] Already on LMWH/UFH [] Multiple prior VTE [] High Risk Thrombophilia with prior VTE Low Risk Thrombophilia: FVL (heterozygous), Prothrombin (heterozygous), Protein C, Protein S High Risk Thrombophilia: FVL (homozygous), Prothrombin (homozygous), FVL+Prothrombin (heterozygous), Antithrombin III, APLS Delivery Summary: Specimen: Placenta Blood Type and Rh: O Rubella Immunity Status: No results found for: RUBELLAIGG LINWOOD Garcia DO 07/18/2022, 7:55 PM Normal [facility] Laboratory - Urinalysison Protein (U) [Mass/Vol] 45 mg/dL High 0 - 12 mg/dL [facility] No Panel Informationon 07-18 Interpretation and review of laboratory results Abnormal [facility] Progress Noteon 07-18-2022 Progress Note Notified by RN of increased bleeding and persistent severe range Bps. Pt was treated with 10 mg IR procardia, will recheck BP in 20 minutes time. Will start magnesium sulfate for seizure ppx. Now meets criteria for PreEwSF. On fundal check, large gush of blood noted. Pt pretreated with 4 mg IV morphine prior to bimanual exam. On bimanual exam, 200 ccs of clot evacuated from the lower uterine segment under US guidance. Dr. Saldivar in room to assess as well. After clot evacuated, pt was given 1000 mcg of rectal Cytotec. Will continue to closely monitor BP and bleeding. Total EBL now up to 500 ccs. Vitals: 07/18/22 1825 BP: (!) 151/102 Pulse: 75 Resp: Temp: SpO2: Normal [facility] Blood type and Crossmatch pa sabas (Bld)on 07-17-2022 ABO group Nom (Bld) O [facility] Blood group antibody screen GEL Ql Negative [facility] D Ag Ql (RBC) Positive [facility] CAREPLNon 07-17-2022 CAREPLN Problem: Vaginal Bir th or Section Goal: and maternal status remain reassuring during the process Outcome: Progressing Problem: Pain - Adult Goal: Verbalizes/displays adequate comfort level or baseline comfort level Outcome: Progressing Problem: Infection - Adult Goal: Absence of infection at discharge Outcome: Progressing Goal: Absence of infection during hospitalization Outcome: Progressing Goal: Absence of fever/infection during anticipated neutropenic period Outcome: Progressing Problem: Safety - Adult Goal: Free from fall injury Outcome: Progressing Problem: Discharge Planning Goal: Discharge to home or other facility with appropriate resources Outcome: Progressing Normal [facility] CBC panel Auto (Bld)Ordered By: Rosalind Hyman on 07-17-2022 Erythrocyte distribution width (RBC) [Ratio] 23.2 % High 11.5 - 14.5 % [facility] Comment on above: I-Anisocytosis Hematocrit (Bld) [Volume fraction] 34.0 % Low 35.0 - 47.0 % [facility] Hemoglobin (Bld) [Mass/Vol] 11.0 g/dL Low 11.7 - 16.0 g/dL [facility] Interpretation and review of laboratory results Abnormal [facility] MCH (RBC) [Entitic mass] 26.7 pg 26.0 - 34.0 pg [facility] MCHC (RBC) [Mass/Vol] 32.5 % 32.0 - 36.0 % [facility] MCV (RBC) [Entitic vol] 82.3 fL 80.0 - 98.0 fL [facility] Platelet mean volume (Bld) [Entitic vol] 10.4 fL 7.4 - 12.4 fL [facility] Platelets (Bld) [#/Vol] 157 10*3/uL 140 - 440 10*3/uL [facility] RBC (Bld) [#/Vol] 4.12 10*6/uL 3.8 - 5.20 10*6/uL [facility] WBC (Bld) [#/Vol] 8.5 10*3/uL 3.6 - 10.7 10*3/uL [facility] 36on 07-16-2022 36 S: Patient 's mother spoke with CAC nurse regarding needing FMLA B: Onset of symptoms/concern Patient is due tomorrow. Pt's mother is concerned that the paper work for the FMLA is not been completed. A: Mother is calling for the patient. R: Patient;s mother understands care advice. Home care advised, The Father of the twins will need to call his employer and will need to reach out to the office during business hours. No further needs at this time. Patient's mother's instructed to call back with new or worsening symptoms. Reason for Disposition [1] Caller requesting NON-URGENT health information AND [2] PCP's office is the best resource Protocols used: Information Only Call - No [id number] Normal [facility] Progress Noteon 07-16-2022 Progress Note Patient scheduled fo r IOL tomorrow at 38 weeks, had BPP 6 days ago, not on schedule today. Patient is feeling both babies move normal, FHR for both heard today. Discussed FM and kick counts and when to go to triage. Reviewed IOL process, already 3 cm so will only need pitocin and AROM Reviewed options for delivery of second twin if flips to breech after A delivers, breech extraction vs . Patient will discuss further with provider front end developer designer during induction. Normal [facility] Progress Note PLAN: Dichorionic diamniotic twin in second trimester Patient scheduled for IOL tomorrow at 38 weeks, had BPP 6 days ago, not on schedule today. Patient is feeling both babies move normal, FHR for both heard today. Discussed FM and kick counts and when to go to triage. Reviewed IOL process, already 3 cm so will only need pitocin and AROM Reviewed options for delivery of second twin if flips to breech after A delivers, breech extraction vs . Patient will discuss further with provider front end developer designer during induction. ASSESSESMENT: Diagnosis Plan 1. Dichorionic diamniotic twin in third trimester She is here for 37w6d OB visit. Denies cramping, leaking of fluid, or bleeding PHYSICAL EXAM: BP 133/88 Wt 165 lb (74.8 kg) LMP (LMP Unknown) BMI 27.46 kg/m? I have reviewed her pertinent history, lab results, medications and problem list. See episode for any changes. Well appearing, Alert & oriented Skin warm & dry Normal range of motion in all extremities. Abdomen soft nontender Normal resp effort Dolly Saldivar MD 07/16/22 No follow-ups on file. Normal [facility] US BIOPHYSICAL PROFILE WO NON STRESS TESTINGon 07-11-2022 US BIOPHYSICAL PROFILE WO NON STRESS TESTING OBSTETRICS REPORT (Signed Final 07/11/2022 05:54 pm) PATIENT INFO: ID #: [id number] : [birth year] (26 yrs)(F) Name: CATALINA MARVIN Visit Date: 07/10/2022 10:27 am PERFORMED BY: Attending: José Suarez MD Performed By: Nancy Hinson RDMS Referred By: GENESIS POLK Location: [facility] [place] REVIEW ASSISTANT [facility] Visit Type: [facility] REVIEW ASSISTANT SERVICE(S) PROVIDED: BPP w/out NST 75093 BPP w/out NST 16766 INDICATIONS: Twin , dichorionic/diamniotic, third O30.043 trimester Encounter for supervision of other normal Z34.83 , third trimester 37 weeks gestation Z3A.37 BPP's/ Allyson Di twins/ EDC 07-31-22 = 37w0d EVALUATION (FETUS A): Num Of Fetuses: 2 Preg. Location: Intrauterine Heart Rate(bpm): 151 Cardiac Activity: Present Lie: Transverse Presentation: Cephalic Placenta: not evaluated Amniotic Fluid MONET FV: Appropriate for gestational age Largest Pocket(cm) 2.51 BIOPHYSICAL EVALUATION (FETUS A): Amniotic F.V: Within normal limits F. Tone: Observed F. Movement: Observed Score: 8/8 F. Breathing: Observed BIOMETRY (FETUS A): GESTATIONAL AGE (FETUS A): Clinical SAPNA: 37w 0d SAPNA: 07/31/22 Best: 37w 0d Det. By: Clinical SAPNA SAPNA: 07/31/22 EVALUATION (FETUS B): Num Of Fetuses: 2 Preg. Location: Intrauterine Heart Rate(bpm): 140 Cardiac Activity: Present Lie: Transverse superior Presentation: Transverse, head maternal right Placenta: not evaluated Amniotic Fluid MONET FV: Within normal limits Largest Pocket(cm) 2.18 BIOPHYSICAL EVALUATION (FETUS B): Amniotic F.V: Within normal limits F. Tone: Observed F. Movement: Observed Score: 8/8 F. Breathing: Observed BIOMETRY (FETUS B): GESTATIONAL AGE (FETUS B): Clinical SAPNA: 37w 0d SAPNA: 07/31/22 Best: 37w 0d Det. By: Clinical SAPNA SAPNA: 07/31/22 José Suarez MD Electronically Signed Final Report 07/11/2022 05:54 pm IMPRESSION: Live dichorionic/diamniotic twin with and EDC of 07/31/22. Cardiac activity and movement are present. Twin A: inferior, lies in a vertex transverse presentation, DVP of amniotic fluid = 2.5cm. BPP 8/8. Twin B: superior, lies in a transverse presentation, DVP of amniotic fluid = 2.2cm. BPP 8/8. The patient is scheduled to see Dr Polk following ultrasound. *Ultrasound cannot detect all or genetic abnormalities and a normal ultrasound cannot guarantee a normal outcome.* [facility] 36on 07-10-2022 36 Spoke with patient t his has been completed they will pick it up after her OB visit today [facility] Progress Noteon 07-10-2022 Progress Note Routine Off ice Visit: 3rd trimester 07/10/22 HPI: Catalina Marvin is a 26 y.o. who presents for routine OB visit at 37w0d. SAPNA: Estimated Date of Delivery: 07/31/22 She denies CTX, LOF, DFM, VB PHYSICAL EXAM: Assessment Heart Rate: BPP, Movement: Present Cervical Exam Dilation: 2 Vitals Weight: 159 lb (72.1 kg), BP: 127/84 Well appearing, Alert & oriented Skin warm & dry Normal range of motion in all extremities. Abdomen soft nontender Normal resp effort ASSESSMENT: Diagnosis Plan 1. Encounter for supervision of other normal , third trimester 2. Dichorionic diamniotic twin in second trimester PLAN: Induction consent done today for IOL at 38 weeks Follow Up: 07/16/2022 Genesis Polk MD 02/10/23 [facility] 36on 07-09-2022 36 Name of caller: Zulay Marvin Contact phone number: [phone] Relationship to Patient: family member patient and mother Provider: Dr Polk Practice: [facility] Chief Complaint/Reason for Call: Pt's mother calling to check the status of FMLA paperwork. Best time of day caller can be reached: Any Patient advised that office/PCP has 24-48 business hours to return their call: Yes Normal [facility] US BIOPHYSICAL PROFILE WO NON STRESS TESTINGon 07-04-2022 US BIOPHYSICAL PROFILE WO NON STRESS TESTING OBSTETRICS REPORT (Signed Final 07/04/2022 04:04 pm) PATIENT INFO: ID #: [id number] : [birth year] (26 yrs)(F) Name: CATALINA MARVIN Visit Date: 07/03/2022 11:17 am PERFORMED BY: Attending: José Suarez MD Performed By: Analisa Fitzgerald RDMS Referred By: MARK DOWD MD Location: [facility] REVIEW ASSISTANT [facility] Visit Type: [facility] REVIEW ASSISTANT SERVICE(S) [place]: [place] [id number] [place] [address] BPP w/out NST 11029 BPP w/out NST 11346 INDICATIONS: Twins/ Growth/ BPP/ EDC 07/31/22 = 36w0d Twin , dichorionic/diamniotic, third trimester - O30.043 36 weeks gestation of - Z3A.36 EVALUATION (FETUS A): Num Of Fetuses: 2 Preg. Location: Intrauterine Heart Rate(bpm): 160 Cardiac Activity: Regular rhythm Lie: Maternal LT Presentation: Vertex Placenta: Anterior grade 2 no previa P. Cord Insertion: Normal Amniotic Fluid MONET FV: Appears WNL Largest Pocket(cm) 4.13 BIOPHYSICAL EVALUATION (FETUS A): Amniotic F.V: Within normal limits F. Tone: Observed F. Movement: Observed Score: 8/8 F. Breathing: Observed BIOMETRY (FETUS A): BPD: 89.7 mm G.Age: 36w 2d 68 % OFD: 112.6 mm HC: 322.9 mm G.Age: 36w 3d 31 % AC: 335.4 mm G.Age: 37w 3d 91 % FL: 69.9 mm G.Age: 35w 6d 41 % CI: 79.7 % 70 - 86 FL/HC: 21.6 % 20.1 - 22.1 HC/AC: 0.96 0.93 - 1.11 FL/BPD: 77.9 % 71 - 87 FL/AC: 20.8 % 20 - 24 Est. FW: 3042 gm 6 lb 11 oz 61 % FW Discordancy: 0 \ 11 % GESTATIONAL AGE (FETUS A): Clinical SAPNA: 36w 0d SAPNA: 07/31/22 U/S Today: 36w 4d SAPNA: 07/27/22 Best: 36w 0d Det. By: Clinical SAPNA SAPNA: 07/31/22 TARGETED ANATOMY (FETUS A): Central Nervous System Calvarium/Cranial V.: Normal appearance Cavum: CSP non vis Parenchyma: Normal appearance Lateral Ventricles: Lt WNL, Rt non vis Choroid Plexus: Normal appearance Cereb./Vermis: Not visualized Cisterna Magna: Not visualized Corpus Callosum: Normal appearance Midline Falx: Normal appearance Spine Cervical: Normal appearance Thoracic: Normal appearance Lumbar: Normal appearance Sacral: Not visualized Head/Neck Lips: Not visualized Profile: Normal appearance Orbits/Eyes: Normal appearance Thorax Thoracic Contour: Normal appearance 4 Chamber View: Normal appearance Cardiac Activity: Normal appearance Cardiac Rhythm: Normal appearance Cardiac Situs: Normal appearance Rt Outflow Tract: Normal appearance Lt Outflow Tract: Not visualized Cardiac Forgan: Normal appearance Diaphragm: Normal appearance 3 Vessel View: Normal appearance 3 V Trachea View: Normal appearance Abdomen Ventral Wall: Not visualized Cord Insertion: Not visualized Situs: Normal appearance Stomach: Normal appearance Lt Kidney: Normal appearance Rt Kidney: Normal appearance Bladder: Normal appearance Extremities Lt Humerus: Not visualized Rt Humerus: Normal appearance Lt Forearm: Not visualized Rt Forearm: Normal appearance Lt Hand: Not visualized Rt Hand: Normal appearance Lt Femur: Not visualized Rt Femur: Normal appearance Lt Lower Leg: Not visualized Rt Lower Leg: Normal appearance Lt Foot: Not visualized Rt Foot: Not visualized Other Umbilical Cord: Normal 3-vessel Genitalia: Not visualized Comment: Renal arteries appear normal. EVALUATION (FETUS B): Num Of Fetuses: 2 Preg. Location: Intrauterine Heart Rate(bpm): 155 Cardiac Activity: Regular rhythm Lie: Maternal RT Presentation: Vertex Placenta: Posterior grade 2 no previa P. Cord Insertion: Not Visualized Amniotic Fluid MONET FV: Appears WNL Largest Pocket(cm) 5.68 BIOPHYSICAL EVALUATION (FETUS B): Amniotic F.V: Within normal limits F. Tone: Observed F. Movement: Observed Score: 8/8 F. Breathing: Observed BIOMETRY (FETUS B): BPD: 81.8 mm G.Age: 32w 6d 1 % OFD: 109.9 mm HC: 304.4 mm G.Age: 33w 6d < 1 % AC: 320.1 mm G.Age: 36w 0d 58 % FL: 71.5 mm G.Age: 36w 4d 62 % CI: 74.4 % 70 - 86 FL/HC: 23.5 % 20.1 - 22.1 HC/AC: 0.95 0.93 - 1.11 FL/BPD: 87.4 % 71 - (more content not included)... Normal [facility] US OB FOLLOW UP TRANSABDOMIN AL APPROACHon 07-04-2022 US OB FOLLOW UP TRANSABDOMINAL APPROACH OBSTETRICS REPORT (Signed Final 07/04/2022 04:04 pm) PATIENT INFO: ID #: [id number] : [birth year] (26 yrs)(F) Name: CATALINA MARVIN Visit Date: 07/03/2022 11:17 am PERFORMED BY: Attending: José Suarez MD Performed By: Analisa Fitzgerald RDMS Referred By: MARK DOWD MD Location: [facility] [place] REVIEW ASSISTANT [facility] Visit Type: [facility] [place] REVIEW ASSISTANT SERVICE(S) [place]: [place] [id number] [place] [address] BPP w/out NST 09998 BPP w/out NST 44945 INDICATIONS: Twins/ Growth/ BPP/ EDC 07/31/22 = 36w0d Twin , dichorionic/diamniotic, third trimester - O30.043 36 weeks gestation of - Z3A.36 EVALUATION (FETUS A): Num Of Fetuses: 2 Preg. Location: Intrauterine Heart Rate(bpm): 160 Cardiac Activity: Regular rhythm Lie: Maternal LT Presentation: Vertex Placenta: Anterior grade 2 no previa P. Cord Insertion: Normal Amniotic Fluid MONET FV: Appears WNL Largest Pocket(cm) 4.13 BIOPHYSICAL EVALUATION (FETUS A): Amniotic F.V: Within normal limits F. Tone: Observed F. Movement: Observed Score: 8/8 F. Breathing: Observed BIOMETRY (FETUS A): BPD: 89.7 mm G.Age: 36w 2d 68 % OFD: 112.6 mm HC: 322.9 mm G.Age: 36w 3d 31 % AC: 335.4 mm G.Age: 37w 3d 91 % FL: 69.9 mm G.Age: 35w 6d 41 % CI: 79.7 % 70 - 86 FL/HC: 21.6 % 20.1 - 22.1 HC/AC: 0.96 0.93 - 1.11 FL/BPD: 77.9 % 71 - 87 FL/AC: 20.8 % 20 - 24 Est. FW: 3042 gm 6 lb 11 oz 61 % FW Discordancy: 0 \ 11 % GESTATIONAL AGE (FETUS A): Clinical SAPNA: 36w 0d SAPNA: 07/31/22 U/S Today: 36w 4d SAPNA: 07/27/22 Best: 36w 0d Det. By: Clinical SAPNA SAPNA: 07/31/22 TARGETED ANATOMY (FETUS A): Central Nervous System Calvarium/Cranial V.: Normal appearance Cavum: CSP non vis Parenchyma: Normal appearance Lateral Ventricles: Lt WNL, Rt non vis Choroid Plexus: Normal appearance Cereb./Vermis: Not visualized Cisterna Magna: Not visualized Corpus Callosum: Normal appearance Midline Falx: Normal appearance Spine Cervical: Normal appearance Thoracic: Normal appearance Lumbar: Normal appearance Sacral: Not visualized Head/Neck Lips: Not visualized Profile: Normal appearance Orbits/Eyes: Normal appearance Thorax Thoracic Contour: Normal appearance 4 Chamber View: Normal appearance Cardiac Activity: Normal appearance Cardiac Rhythm: Normal appearance Cardiac Situs: Normal appearance Rt Outflow Tract: Normal appearance Lt Outflow Tract: Not visualized Cardiac Forgan: Normal appearance Diaphragm: Normal appearance 3 Vessel View: Normal appearance 3 V Trachea View: Normal appearance Abdomen Ventral Wall: Not visualized Cord Insertion: Not visualized Situs: Normal appearance Stomach: Normal appearance Lt Kidney: Normal appearance Rt Kidney: Normal appearance Bladder: Normal appearance Extremities Lt Humerus: Not visualized Rt Humerus: Normal appearance Lt Forearm: Not visualized Rt Forearm: Normal appearance Lt Hand: Not visualized Rt Hand: Normal appearance Lt Femur: Not visualized Rt Femur: Normal appearance Lt Lower Leg: Not visualized Rt Lower Leg: Normal appearance Lt Foot: Not visualized Rt Foot: Not visualized Other Umbilical Cord: Normal 3-vessel Genitalia: Not visualized Comment: Renal arteries appear normal. EVALUATION (FETUS B): Num Of Fetuses: 2 Preg. Location: Intrauterine Heart Rate(bpm): 155 Cardiac Activity: Regular rhythm Lie: Maternal RT Presentation: Vertex Placenta: Posterior grade 2 no previa P. Cord Insertion: Not Visualized Amniotic Fluid MONET FV: Appears WNL Largest Pocket(cm) 5.68 BIOPHYSICAL EVALUATION (FETUS B): Amniotic F.V: Within normal limits F. Tone: Observed F. Movement: Observed Score: 8/8 F. Breathing: Observed BIOMETRY (FETUS B): BPD: 81.8 mm G.Age: 32w 6d 1 % OFD: 109.9 mm HC: 304.4 mm G.Age: 33w 6d < 1 % AC: 320.1 mm G.Age: 36w 0d 58 % FL: 71.5 mm G.Age: 36w 4d 62 % CI: 74.4 % 70 - 86 FL/HC: 23.5 % 20.1 - 22.1 HC/AC: 0.95 0.93 - 1.11 FL/BPD: 87.4 % 71 - (more content not included)... Normal [facility] Progress Noteon 07-03-2022 Progress Note The patient is a 26 y.o. 36w0d. OB History 3 Para 1 Term 1 AB 1 Living 1 SAB IAB 1 Ectopic Multiple Live Births 1 She is here for her third iron infusion. Iron Deficit (0.24 x Weight in kg prior to x Hgb deficit ([place] vs actual) + 500mg) = 538 Todays Dose: 138 (Maximum Dose 200mg) Remaining dose: 0 mg FHT Cat I/Cat I Patient to come back for subsequent infusion between 24hrs to one week from today Priya Dao DO 07/03/2022 7:06 PM [facility] Progress Note 07/03/22 Pt would like to labor as twins are vtx x2. Baby A EFW >baby B. Discussed IOL at 38 weeks. Will need induction papers signed next week. CA Normal [facility] Progress Note A chief green officer was offe red to be present during her exam. The patient: declined Normal [facility] Progress Note Routine Off ice Visit: 3rd trimester 07/03/22 HPI: Catalina Marvin is a 26 y.o. who presents for routine OB visit at 36w0d. SAPNA: Estimated Date of Delivery: 07/31/22 She denies CTX, LOF, DFM, VB PHYSICAL EXAM: Assessment Movement: Present Vitals Weight: 162 lb (73.5 kg), BP: 126/77 Well appearing, Alert & oriented Skin warm & dry Normal range of motion in all extremities. Abdomen soft nontender Normal resp effort ASSESSMENT: Diagnosis Plan 1. Encounter for supervision of other normal , third trimester Group B Strep Screen PCR US biophysical profile wo non stress testing 2. Dichorionic diamniotic twin in second trimester US biophysical profile wo non stress testing PLAN: Dichorionic diamniotic twin in second trimester 07/03/22 Pt would like to labor as twins are vtx x2. Baby A EFW >baby B. Discussed IOL at 38 weeks. Will need induction papers signed next week. CA Orders placed today: Orders Placed This Encounter Procedures Group B Strep Screen PCR US biophysical profile wo non stress testing Follow Up: 07/10/2022 Genesis Polk MD 07/03/22 [facility] 36on 07-01-2022 36 Name of caller: Shine nieto Contact phone number: [phone] Relationship to Patient: patient Provider: Dr. Polk Practice: [facility] [employer] Chief Complaint/Reason for Call: Patient Catalina calling in and states that she does not want the appointments cancelled. Patient is still coming for her appointment on Wednesday07-03-2022 for U/S and AISHWARYA. Best time of day caller can be reached: Any Patient advised that office/PCP has 24-48 business hours to return their call: N/A [facility] 36 Name of caller: zulay Contact phone number: [phone] Relationship to Patient: family member patient and mother Provider: Jakob Practice: [facility] Chief Complaint/Reason for Call: Pt mother calling because she needs the appointments for Wednesday cancelled due to pt's not having FMLA paperwork to miss work. Please advise. Best time of day caller can be reached: Any Patient advised that office/PCP has 24-48 business hours to return their call: [facility] 36 Yes, pt needs the ultrasound as soon as possible. Please contact her to get this rescheduled rip [facility] 36 Name of caller: Shine Marvin Contact phone number: [phone] Relationship to Patient: patient Provider: Jakob Practice: [facility] Chief Complaint/Reason for Call: Pt called to cancel her US appt today for her TWINS. growth, BPP and AISHWARYA. She has another US on 07/10/2022 and the next availability for an US is 07/06/2022 at [place]. Routine Visit on 07/03/2022 was not canceled. Will provider like pt to come in before 07/10/2022 for an US? Please advise. Best time of day caller can be reached: any Patient advised that office/PCP has 24-48 business hours to return their call: Yes [facility] 36on 06-29-2022 36 Bjorn Do you have her FMLA? [facility] Progress Noteon 06-29-2022 Progress Note The patient is a 26 y.o. 35w3d. OB History 3 Para 1 Term 1 AB 1 Living 1 SAB IAB 1 Ectopic Multiple Live Births 1 She is here for her second iron infusion. Iron Deficit (0.24 x Weight in kg prior to x Hgb deficit ([place] vs actual) + 500mg) = 338 Todays Dose: 200 (Maximum Dose 200mg) Remaining dose: 138 mg FHT Cat I / Cat I Patient to come back for subsequent infusion between 24hrs to one week from today [facility] 36on 06-25-2022 36 S: Patient spoke hilda [facility] nurse regarding problem-vomiting B: Onset of symptoms/concern last night A: Patient is currently 34 weeks with twins. Patient had first iron infusion done last night. Patient started vomiting after infusion and has been vomiting since. Patient states she is very weak and passed out earlier this morning. Patient states she can barely walk and can't get to the bathroom herself. Patient states she has been able to keep some fluids down the last hour. Patient had called earlier and was told to go to triage. Patient states she has been seen in L & D multiple times during the past week and did not want to go back again. Patient also was late to her ultrasound and missed her appointment this afternoon. Patient states symptoms continue- she does not want to go back to L & D and wants to know if she should get her infusion tomorrow. R: Secure chat sent to Dr Dowd. Per Dr Dowd, She needs to go to triage if her symptoms are as bad as she is describing so that she can get fluids and nausea medication. If she is feeling better she can delay her Iron infusion to Wednesday. Patient states she will talk to her about it, she is unsure if she will go to L & D. Dr Dowd aware. Reason for Disposition Patient sounds very sick or weak to the triager Protocols used: - Morning Sickness (Nausea and Vomiting of )-ADULT-OH [facility] 36 Patients mother is calling in and wants an update on her daughters FMLA papers and what her daughter should be doing. Daughter had spoken to a nurse this morning and she was given instructions. Mother wants to know what is in her daughters chart as she feels her daughter is not being taken care of. Mother states her daughter can not afford to keep going to appointments and to triage as she is 50 miles away from here. It is noted that her daughter has a US scheduled at 345 today. Mother is asking what appointments her daughter has scheduled and when they are. Mother states she is going to be a grandmother and she should be privledged to all information. Reason for Disposition [1] Caller requesting NON-URGENT health information AND [2] PCP's office is the best resource Protocols used: Information Only Call - No [id number] [employer] [place] [facility] 36 Name of caller: Zulay Marvin Contact phone number: [phone] Relationship to Patient: family member mother Provider: Aliza Rehman Practice: [facility] Chief Complaint/Reason for Call: Pt mother calling to check on status of FMLA forms being completed for Pt . Pt mother states Pt needs the forms returned as soon as possible because Pt is now getting into trouble at work. Please advise Best time of day caller can be reached: Any AM Patient advised that office/PCP has 24-48 business hours to return their call: [employer] [facility] 36 S Pt called the [facility]. B CAC RN returning call to pt at [phone]. A Pt states she is 34 weeks with twins and last night she rec'd a iron transfusion for her low iron. Pt started vomiting after infusion but was sent home. Pt has had over 6 episodes of vomiting since yesterday. Pt states she feels very weak and she passed out this morning when she got up to go to the BR. Pt did not hit her head or abdomen and thinks she only passed out for a few mins. Pt has only kept a few sips of water down this morning. Denies fever, chest pain, SOB, vaginal bleeding, LOF. +FM - both babies. Pt states she can hardly walk. R Pt to go back to Triage now for eval. Pt's will take her. Pt to call back if any further ques or concerns. Reason for Disposition SEVERE vomiting (e.g., > 6 times / day) and present > 8 hours Answer Assessment - Initial Assessment Questions 1. VOMITING SEVERITY: How many times have you vomited in the past 24 hours? - MILD: 1 - 2 times/day - MODERATE: 3 - 5 times/day, decreased oral intake without significant weight loss or symptoms of dehydration - SEVERE: 6 or more times/day, vomits everything or nearly everything, with significant weight loss, symptoms of dehydration 6 times 2. ONSET: When did the vomiting begin? Last night with iron infusion at 1900 3. FLUIDS: What fluids or food have you vomited up today? Are you able to keep any liquids down? Waffles caused vomiting. Sip of water at 9:20 - no vomiting 4. TREATMENT: What have you been doing so far to treat this? Trying to increase fluids 5. DEHYDRATION: When was the last time you urinated? Are you feeling lightheaded? Weight loss? This morning 6. : How many weeks are you? How has the been going? 34 weeks 7. SAPNA: What date are you expecting to deliver? EDC 07-31-22 8. MEDICATIONS: What medications are you taking? (e.g., vitamins, iron) PNV and Iron 9. OTHER SYMPTOMS: Do you have any other symptoms? Dizziness and lightheaded; Protocols used: - Morning Sickness (Nausea and Vomiting of )-ADULT-OH [facility] 36 Name of caller: Shine gerson Contact phone number: [phone] Relationship to Patient: patient Provider: Yariel Practice: [facility] Chief Complaint/Reason for Call: Pt checking the status of the FMLA forms for her spouse that were brought in to the office on 06/19 (given to Dr. Saldivar at visit). Please fax the forms to the number listed. They are due by 06/28. Contact the pt when these have been sent. Best time of day caller can be reached: any Patient advised that office/PCP has 24-48 business hours to return their call: No [facility] 36on 06-24-2022 36 Mother called to winsome sanchez regarding infusion at [place]. Advised in process however this may take several days. Mother advised daughter is feeling weak. Mother advised pt needs to report to triage at [facility] as soon as she can. Mother agreed and will have her daughter report there. Her will take her as soon as he is off work. [facility] 36 Received infusion fo rm from [facility].Scanned to media. This will require a prior authorization . Will route to Dr. Saldivar to complete the form. Will need an icd and procedure code before prior authorization can be completed. Normal [facility] 36 Spoke with [place] infusion center. They will fax the order to the office. Will fax back once completed. Mother notified. Normal [facility] 36 Name of caller: Zulay Contact phone number: [phone] Relationship to Patient: family member patient and mother Provider: Dr. Saldivar Practice: [facility] Location Chief Complaint/Reason for Call: Pts mother is calling again to check on the status of their request for pt to have infusion done at [facility] (see nurse triage message from 06.23.2022) She states that yesterday when they spoke she was given the wrong fax number and needs to update that to . She states that this needs done rip. Please advise. Best time of day caller can be reached: Any Patient advised that office/PCP has 24-48 business hours to return their call: No Normal [facility] Ferritin [Mass/Vol]on 2022 Interpretation and review of laboratory results Normal [facility] Iron and Iron binding capaci ty panelon 06-24-2022 Interpretation and review of laboratory results Abnormal [facility] Iron [Mass/Vol] 46 ug/dL 37 - 170 ug/dL [facility] Iron binding capacity [Mass/Vol] 791 ug/dL High 261 - 497 ug/dL [facility] Iron saturation [Mass fraction] 6 % Low 15 - 50 % [facility] Laboratory - Chemistry and C hemistry - challengeon 06-24-2022 Ferritin [Mass/Vol] 6 ng/mL 6 - 137 ng/mL [facility] Progress Noteon 06-24-2022 Progress Note The patient is a 26 y.o. 34w5d. OB History 3 Para 1 Term 1 AB 1 Living 1 SAB IAB 1 Ectopic Multiple Live Births 1 She is here for her first iron infusion. Iron Deficit (0.24 x Weight in kg prior to x Hgb deficit ([place] vs actual) + 500mg) = 538 Todays Dose: 200 (Maximum Dose 200mg) Remaining dose: 338 mg FHT Cat I /Cat I Patient to come back for subsequent infusion between 24hrs to one week from today JARRED SIMON DO 06/24/2022 9:35 PM [facility] 36on 06-23-2022 36 S: Patient's mom spo sesar with CAC nurse regarding patient iron infusion. B: Onset of symptoms/concern today. A: Patient's mom reports they did not receive call back from office regarding having iron infusion at [facility]. Patient would like to have the procedure tonight. Patient not with caller unable to fully triage. R: Dr. Saldivar messaged about above advises I would recommend she follow up with the nurses tomorrow during office hours and she can do the transfusion later. Not all hospital ED or L&Ds will have the same capability to do the infusions so our nurses will check to see if this is even possible prior to her going in. Patient's mom notified and understands care advice. No further needs at this time. Patient instructed to call back with new or worsening symptoms. [facility] 36 Reason for Dispositi on Caller has already spoken with another triager or PCP AND has further questions AND triager able to answer questions. Protocols used: No Contact or Duplicate Contact [id number] [facility] 36 Error [facility] 36 S: Patient's mom spo sesar with CAC nurse regarding patient SAPNA 07/30/22 B: Onset of symptoms for couple days. A: Seen in the ER yesterday at [facility] Mom asking if she can get her iron infusion can be done at [facility], , fax [phone]. Mom reports she is very disoriented d/t iron being low and with twins. Was to get it down at [facility] and [place] is closer for her. Called the patient: She states that [place] is an hour away, that hospital, is 10 minutes away , patient feels very tired, no SOB R: Spoke with Elina at the office, and will send encounter to the MD to review and call the patient back. Patient's mom understands care advice. No further needs at this time. Patient's mom instructed to call back with new or worsening symptoms. Reason for Disposition Caller has URGENT medicine question about med that PCP or specialist prescribed and triager unable to answer question Protocols used: Medication Question [id number] [facility] 36 Message released to patient as written. Patient's further questions if applicable: no Were all questions from office addressed or relayed to the patient from encounter: yes [facility] 36 Left message to retu rn call [facility] 36 ----- Message from Antoinette Saldivar MD sent at 06/23/2022 10:35 AM EST ----- Let pt know she passed her glucola. Her hgb 8.7, which is lower then what it was earlier in . I would advise an iron infusion at triage. She can go anytime. Typically she will need to get 2-3 infusions over a few days- weeks time [facility] 36on 06-22-2022 36 S: Patient called [facility] with complaint of Pt is 34 wk's 3 days preg w/ twins. Pt is having severe pain in between contractions. B: Ongoing SAPNA 07/30/22, denies vaginal bleeding or discharge A: Patient c/o has been having contractions off and on but shooting pain 10/10 in between the contractions she states it is very severe pain. Advised to go to labor and delivery states she will go to [facility] L&D R: [facility] labor and delivery Message to the office for review by the provider and needs recommendation from Provider for treatment going forward. Reason for Disposition MODERATE-SEVERE abdominal pain Protocols used: - Labor - [id number] [facility] Progress Noteon 06-22-2022 Progress Note ---- -------- Attestation signed by Andre Foreman III, MD at 06/22/2022 3:28 PM Hospital Care (Independent): I independently saw and evaluated the patient. I agree with the findings and plan of care as documented in the resident's note. -------- Department of Obstetrics and Gynecology Labor and Delivery Triage Note CHIEF COMPLAINT: Pain between contractions HISTORY OF PRESENT ILLNESS: The patient is a 26 y.o. 34w3d with twins presenting for pain in the low abdomen that radiates into the groin. She states that this pain is mainly present between contractions, which have been occurring since earlier this AM. She states that her contractions are >20 minutes apart. The contractions are not painful and she is able to continue about her day. They are accompanied with back pain when she lays down. OB History 3 Para 1 Term 1 AB 1 Living 1 SAB IAB 1 Ectopic Multiple Live Births 1 Patient presents with a chief complaint as above. Denies DFM/VB/LOF Estimated Due Date: Estimated Date of Delivery: 07/31/22 PAST MEDICAL HISTORY: Past Medical History: Diagnosis Date Anemia Mental disorder depression Migraines Raynaud's disease PAST SURGICAL HISTORY: Past Surgical History: Procedure Laterality Date ADENOIDECTOMY INDUCED N/A 2018 TONSILLECTOMY TONSILLECTOMY AND ADENOIDECTOMY (HISTORICAL) TONSILLECTOMY AND ADENOIDECTOMY (HISTORICAL) WISDOM TOOTH EXTRACTION SOCIAL HISTORY: Social History Socioeconomic History Marital status: Single Tobacco Use Smoking status: Never Smokeless tobacco: Never Vaping Use Vaping Use: Never used Substance and Sexual Activity Alcohol use: Not Currently Drug use: Yes Frequency: 3.0 times per week Types: Marijuana Sexual activity: Not Currently MEDICATIONS: No current facility-administered medications for this encounter. CARE: Complicated by: twins, Depression, Anxiety REVIEW OF SYSTEMS: Pertinent items are noted in HPI. APPEARANCE: Pain: No PHYSICAL EXAM: Vital Signs: VS wnl-reviewed/Respiration s normal effort Vitals: 06/22/22 1406 06/22/22 1430 06/22/22 1500 BP: 118/73 Pulse: 98 100 99 Resp: 18 Temp: 36.9 ?C (98.4 ?F) TempSrc: Oral Abdomen: soft, gravid, nontender, nondistended, no abnormal masses, no epigastric pain Uterus: gravid/non-tender LE Edema: trace Speculum Exam: no pooling of fluid seen, vaginal discharge physiologic in appearance, wet prep results: no pathogens heart rate: Category I; Category 1 Cervix: Closed Contraction frequency: irregular, every 10-25 minutes Membranes: Intact TRIAGE COURSE: Patient with exam as above. Low concern for PTL as patient is closed, contractions are infrequent and non-painful. FHT Cat 1 in A and Cat 1 in B. Fetus Vertex/Vertex on BSUS. Pain consistent with round ligament pain. Belly band advised. ESSION: Threatened Pre-Term Labor and Round Ligament Pain Pain assessment and plan: None DISCUSSED WITH [facility] PROVIDER: Dr. Lucero DISPOSITION: Discharge to Home [facility] Progress Noteon 06-19-2022 Progress Note ---- -------- Attestation signed by Aleisha Bertrand MD at 06/19/2022 7:47 PM Hospital Care (Independent): I independently saw and evaluated the patient. I agree with the findings and plan of care as documented in the resident's note. -------- Department of Obstetrics and Gynecology Labor and Delivery Triage Note CHIEF COMPLAINT: Variable decelerations in office HISTORY OF PRESENT ILLNESS: The patient is a 26 y.o. 34w0d. OB History 3 Para 1 Term 1 AB 1 Living 1 SAB IAB 1 Ectopic Multiple Live Births 1 Patient presents with a chief complaint as above. Patient is 34 w 0 d, with Di/di twins. She was sent in from the office after Baby B had two audible decelerations. She denies DFM/VB/LOF/CTX. Estimated Due Date: Estimated Date of Delivery: 07/31/22 PAST MEDICAL HISTORY: Past Medical History: Diagnosis Date Anemia Mental disorder depression Migraines Raynaud's disease PAST SURGICAL HISTORY: Past Surgical History: Procedure Laterality Date ADENOIDECTOMY INDUCED N/A 2017 TONSILLECTOMY TONSILLECTOMY AND ADENOIDECTOMY (HISTORICAL) TONSILLECTOMY AND ADENOIDECTOMY (HISTORICAL) WISDOM TOOTH EXTRACTION SOCIAL HISTORY: reports that she has never smoked. She has never used smokeless tobacco. She reports that she does not currently use alcohol. She reports current drug use. Frequency: 3.00 times per week. Drug: Marijuana. MEDICATIONS: Prior to Admission medications Medication Sig Start Date End Date Taking? Authorizing Provider aspirin 81 MG EC tablet Take 1 tablet (81 mg) by mouth in the morning. 04/08/22 04/08/23 Mark Dowd MD calcium carbonate (Tums) 500 MG chewable tablet Chew 500 mg as needed for indigestion or heartburn. Historical Provider, ferrous sulfate (FerrouSul) 325 (65 Fe) MG tablet Take 1 tablet (325 mg) by mouth 2 times daily. 05/28/22 09/25/22 Mark Dowd MD omeprazole (PriLOSEC) [address] capsule Take 20 mg by mouth every morning (before breakfast). Do not crush or chew. Historical Provider, ondansetron (Zofran) 4 MG tablet Take 1 tablet (4 mg) by mouth every 6 hours as needed for nausea or vomiting. Patient not taking: Reported on 06/19/2022 04/03/22 Ramona Hall APRN - LOUIE Vit-Fe Fumarate-FA ( VITAMIN PO) Take by mouth. Historical Provider, CARE: Complicated by: anemia REVIEW OF SYSTEMS: Pertinent items are noted in HPI. APPEARANCE: Pain: No PHYSICAL EXAM: Vital Signs: VS wnl-reviewed/Respiration s normal effort Vitals: 06/19/22 1720 BP: 125/76 BP Location: Left arm Patient Position: Sitting Pulse: 86 Resp: 18 Temp: 36.8 ?C (98.2 ?F) TempSrc: Oral Abdomen: soft, NT, ND, no rebound/guarding Uterus: gravid/non-tender LE Edema: trace Speculum Exam: defer heart rate: Category I Cervix: defer Contraction frequency: none RESULTS: NST: Reactive GENERAL LABS: No results found for this or any previous visit (from the past 24 hour(s)). TRIAGE COURSE: VSS. VTX/VTX on BSUS. [facility] Ean, DO 06/19/2022 5:39 PM Cat I FHT. No decels noted. Will send home with return precautions. FREDERIC ROCK, DO 06/19/2022 7:40 PM IMPRESSION: Reactive NST , Cat I FHT Pain assessment and plan: None DISCUSSED WITH [facility] PROVIDER: Dr. Dowd DISPOSITION: Discharge to Home [facility] Progress Note Reviewed si/sx of la bor, FM and kick counts, and when to go to L&D. Does not need to call office before going to triage. Normal [facility] Progress Note Patient not schedule d for BPP today and US unavailable. On doppler, one of the babies was 155, the other 145 with two audible variables to the 120s. Sent to triage for monitoring Will schedule out weekly BPP/AISHWARYA Briefly discussed CD vs labor. Patient thinks she would like to try labor if continue to both be vtx, but more detailed discussion will need to be done in coming weeks- (since variable heard, we cut delivery conversation short to send her to triage). Normal [facility] Progress Note taking iron, feels lightheaded at times, will recheck hgb and potential IV iron if needed Advised increasing hydration and using compression stockings Normal [facility] Progress Note PLAN: Anemia during taking iron, feels lightheaded at times, will recheck hgb and potential IV iron if needed Advised increasing hydration and using compression stockings Dichorionic diamniotic twin in second trimester Patient not scheduled for BPP today and US unavailable. On doppler, one of the babies was 155, the other 145 with two audible variables to the 120s. Sent to triage for monitoring Will schedule out weekly BPP/AISHWARYA Briefly discussed CD vs labor. Patient thinks she would like to try labor if continue to both be vtx, but more detailed discussion will need to be done in coming weeks- (since variable heard, we cut delivery conversation short to send her to triage). care, antepartum Reviewed si/sx of labor, FM and kick counts, and when to go to L&D. Does not need to call office before going to triage. ASSESSESMENT: Diagnosis Plan 1. Anemia during CBC auto differential CBC auto differential She is here for 34w0d OB visit. Denies cramping, leaking of fluid, or bleeding PHYSICAL EXAM: BP 120/77 Wt 156 lb (70.8 kg) LMP (LMP Unknown) BMI 25.96 kg/m? I have reviewed her pertinent history, lab results, medications and problem list. See episode for any changes. Well appearing, Alert & oriented Skin warm & dry Normal range of motion in all extremities. Abdomen soft nontender Normal resp effort Dolly Saldivar MD 06/19/22 Follow up for AISHWARYA, BPP weekly. Normal [facility] BIOPHYSICAL PROFILE WO NON STRESS TESTINGon 06-07-2022 US BIOPHYSICAL PROFILE WO NON STRESS TESTING OBSTETRICS REPORT (Signed Final 06/07/2022 03:23 pm) PATIENT INFO: ID #: [id number] : [birth year] (26 yrs)(F) Name: CATALINA MARVIN Visit Date: 06/05/2022 01:47 pm PERFORMED BY: Attending: José Suarez MD Performed By: Nancy Hinson RDMS Referred By: MARK DOWD MD Location: [facility] [place] [facility] Type: [facility] [place] REVIEW ASSISTANT SERVICE(S) PROVIDED: [place] [address] BPP w/out NST 09534 BPP w/out NST 53[address] [place] [address] INDICATIONS: Di/ Di twins growth/ EDC 07-31-22 = 32w0d 32 weeks gestation Z3A.32 Twin , unable to determine O30.092 number of placenta and number of amniotic sacs, second trimester Twin , unable to determine O30.092 number of placenta and number of amniotic sacs, second trimester EVALUATION (FETUS A): Num Of Fetuses: 2 Preg. Location: Intrauterine Heart Rate(bpm): 154 Cardiac Activity: Present Lie: Maternal LT Presentation: Cephalic Placenta: Anterior Amniotic Fluid MONET FV: Within normal limits Largest Pocket(cm) 4.13 BIOPHYSICAL EVALUATION (FETUS A): Amniotic F.V: Within normal limits F. Tone: Observed F. Movement: Observed Score: 88 F. Breathing: Observed BIOMETRY (FETUS A): BPD: 80.5 mm G.Age: 32w 2d 51 % OFD: 109.7 mm HC: 302.8 mm G.Age: 33w 4d 57 % AC: 303.6 mm G.Age: 34w 2d 96 % FL: 64.4 mm G.Age: 33w 2d 71 % LV: 4.14 mm CI: 73.4 % 70 - 86 FL/HC: 21.3 % 19.1 - 21.3 HC/AC: 1.00 0.96 - 1.17 FL/BPD: 80.0 % 71 - 87 FL/AC: 21.2 % 20 - 24 Est. FW: 2268 gm 5 lb 68 % FW Discordancy: 0 \ 13 % GESTATIONAL AGE (FETUS A): Clinical SAPNA: 32w 0d SAPNA: 07/31/22 U/S Today: 33w 3d SAPNA: 07/21/22 Best: 32w 0d Det. By: Clinical SAPNA SAPNA: 07/31/22 TARGETED ANATOMY (FETUS A): Central Nervous System Calvarium/Cranial V.: Normal appearance Intracranial Kristan: Normal appearance Cavum: Normal appearance Parenchyma: Normal appearance Lateral Ventricles: Normal appearance Choroid Plexus: Normal appearance Cereb./Vermis: Normal appearance Cisterna Magna: Normal appearance Corpus Callosum: Normal appearance Midline Falx: Normal appearance Spine Cervical: Not visualized Thoracic: Not visualized Lumbar: Not visualized Sacral: Not visualized Head/Neck Face: Not visualized Lips: Not visualized Profile: Not visualized Orbits/Eyes: Not visualized Thorax Thoracic Contour: Normal appearance 4 Chamber View: Normal appearance Cardiac Activity: Normal appearance Cardiac Rhythm: Normal appearance Cardiac Situs: Normal appearance Rt Outflow Tract: Not visualized Lt Outflow Tract: Not visualized Cardiac Forgan: Normal appearance Diaphragm: Normal appearance 3 Vessel View: Normal appearance 3 V Trachea View: Not visualized Abdomen Ventral Wall: Not visualized Cord Insertion: Not visualized Situs: Normal appearance Stomach: Normal appearance Lt Kidney: Normal appearance Rt Kidney: Normal appearance Bladder: Normal appearance Extremities Lt Humerus: Not visualized Rt Humerus: Normal appearance Lt Forearm: Not visualized Rt Forearm: Normal appearance Lt Hand: Not visualized Rt Hand: Not visualized Lt Femur: Not visualized Rt Femur: Normal appearance Lt Lower Leg: Not visualized Rt Lower Leg: Normal appearance Lt Foot: Not visualized Rt Foot: Not visualized Other Umbilical Cord: Normal 3-vessel Comment: Renal arteries appear normal. EVALUATION (FETUS B): Num Of Fetuses: 2 Preg. Location: Intrauterine Heart Rate(bpm): 144 Cardiac Activity: Present Lie: Maternal RT Presentation: Cephalic Placenta: Posterior grade 2 no previa P. Cord Insertion: Not Visualized Amniotic Fluid MONET FV: Within normal limits Largest Pocket(cm) 4.49 BIOPHYSICAL EVALUATION (FETUS B): Amniotic F.V: Within normal limits F. Tone: Observed F. Movement: Observed Score: 8/8 F. Breathing: Observed BIOMETRY (FETUS B): BPD: 73.9 mm G.Age: 29w 5d 1 % OFD: 100.5 mm HC: 278.5 mm G.Age: 30w 3d 1 % AC: 293.1 mm G.Age: 33w (more content not included)... Normal [facility] US OB FOLLOW UP TRANSABDOMIN AL APPROACHon 06-07-2022 US OB FOLLOW UP TRANSABDOMINAL APPROACH OBSTETRICS REPORT (Signed Final 06/07/2022 03:23 pm) PATIENT INFO: ID #: [id number] : [birth year] (26 yrs)(F) Name: CATALINA MARVIN Visit Date: 06/05/2022 01:47 pm PERFORMED BY: Attending: José Suarez MD Performed By: Nancy Hinson RDMS Referred By: MARK DOWD MD Location: [facility] [place] REVIEW ASSISTANT [facility] Visit Type: [facility] [place] REVIEW ASSISTANT SERVICE(S) PROVIDED: [place] [address] BPP w/out NST 60974 BPP w/out NST 29563 [place] [address] INDICATIONS: Di/ Di twins growth/ EDC 07-31-22 = 32w0d 32 weeks gestation Z3A.32 Twin , unable to determine O30.092 number of placenta and number of amniotic sacs, second trimester Twin , unable to determine O30.092 number of placenta and number of amniotic sacs, second trimester EVALUATION (FETUS A): Num Of Fetuses: 2 Preg. Location: Intrauterine Heart Rate(bpm): 154 Cardiac Activity: Present Lie: Maternal LT Presentation: Cephalic Placenta: Anterior Amniotic Fluid MONET FV: Within normal limits Largest Pocket(cm) 4.13 BIOPHYSICAL EVALUATION (FETUS A): Amniotic F.V: Within normal limits F. Tone: Observed F. Movement: Observed Score: 8/8 F. Breathing: Observed BIOMETRY (FETUS A): BPD: 80.5 mm G.Age: 32w 2d 51 % OFD: 109.7 mm HC: 302.8 mm G.Age: 33w 4d 57 % AC: 303.6 mm G.Age: 34w 2d 96 % FL: 64.4 mm G.Age: 33w 2d 71 % LV: 4.14 mm CI: 73.4 % 70 - 86 FL/HC: 21.3 % 19.1 - 21.3 HC/AC: 1.00 0.96 - 1.17 FL/BPD: 80.0 % 71 - 87 FL/AC: 21.2 % 20 - 24 Est. FW: 2268 gm 5 lb 68 % FW Discordancy: 0 \ 13 % GESTATIONAL AGE (FETUS A): Clinical SAPNA: 32w 0d SAPNA: 07/31/22 U/S Today: 33w 3d SAPNA: 07/21/22 Best: 32w 0d Det. By: Clinical SAPNA SAPNA: 07/31/22 TARGETED ANATOMY (FETUS A): Central Nervous System Calvarium/Cranial V.: Normal appearance Intracranial Kristan: Normal appearance Cavum: Normal appearance Parenchyma: Normal appearance Lateral Ventricles: Normal appearance Choroid Plexus: Normal appearance Cereb./Vermis: Normal appearance Cisterna Magna: Normal appearance Corpus Callosum: Normal appearance Midline Falx: Normal appearance Spine Cervical: Not visualized Thoracic: Not visualized Lumbar: Not visualized Sacral: Not visualized Head/Neck Face: Not visualized Lips: Not visualized Profile: Not visualized Orbits/Eyes: Not visualized Thorax Thoracic Contour: Normal appearance 4 Chamber View: Normal appearance Cardiac Activity: Normal appearance Cardiac Rhythm: Normal appearance Cardiac Situs: Normal appearance Rt Outflow Tract: Not visualized Lt Outflow Tract: Not visualized Cardiac Forgan: Normal appearance Diaphragm: Normal appearance 3 Vessel View: Normal appearance 3 V Trachea View: Not visualized Abdomen Ventral Wall: Not visualized Cord Insertion: Not visualized Situs: Normal appearance Stomach: Normal appearance Lt Kidney: Normal appearance Rt Kidney: Normal appearance Bladder: Normal appearance Extremities Lt Humerus: Not visualized Rt Humerus: Normal appearance Lt Forearm: Not visualized Rt Forearm: Normal appearance Lt Hand: Not visualized Rt Hand: Not visualized Lt Femur: Not visualized Rt Femur: Normal appearance Lt Lower Leg: Not visualized Rt Lower Leg: Normal appearance Lt Foot: Not visualized Rt Foot: Not visualized Other Umbilical Cord: Normal 3-vessel Comment: Renal arteries appear normal. EVALUATION (FETUS B): Num Of Fetuses: 2 Preg. Location: Intrauterine Heart Rate(bpm): 144 Cardiac Activity: Present Lie: Maternal RT Presentation: Cephalic Placenta: Posterior grade 2 no previa P. Cord Insertion: Not Visualized Amniotic Fluid MONET FV: Within normal limits Largest Pocket(cm) 4.49 BIOPHYSICAL EVALUATION (FETUS B): Amniotic F.V: Within normal limits F. Tone: Observed F. Movement: Observed Score: 8/8 F. Breathing: Observed BIOMETRY (FETUS B): BPD: 73.9 mm G.Age: 29w 5d 1 % OFD: 100.5 mm HC: 278.5 mm G.Age: 30w 3d 1 % AC: 293.1 mm G.Age: 33w (more content not included)... [facility] Progress Noteon 06-05-2022 Progress Note Routine Off ice Visit 06/05/22 HPI: Catalina Marvin is a 26 y.o. who presents for routine OB visit at 32w0d. SAPNA: Estimated Date of Delivery: 07/31/22 She denies CTX, LOF, VB, DFM. PHYSICAL EXAM: Assessment Heart Rate: US/US, Movement: Present Vitals Weight: 150 lb (68 kg), BP: 128/80 Well appearing, Alert & oriented Skin warm & dry Normal range of motion in all extremities. Abdomen soft nontender Normal resp effort ASSESSMENT: Diagnosis Plan 1. Encounter for supervision of other normal , third trimester 2. Twin gestation, unable to determine number of placenta and number of amniotic sacs in second trimester PLAN: No problem-specific Assessment & Plan notes found for this encounter. Genesis Polk MD Orders placed today: No orders of the defined types were placed in this encounter. Follow Up: 06/19/2022 [facility] 36on 05-28-2022 36 Left message to retu rn call [facility] 36 ----- Message from Mark Dowd MD sent at 05/28/2022 7:53 AM EST ----- Please notify patient that her 1hr glucose test was normal but she is anemic. I sent in a prescription for iron supplement. Thanks. [facility] Progress Noteon 05-20-2022 Progress Note Will return next wee k for growth US and BPP. [facility] Progress Note Has not yet done 1hr gTT. Stressed importance of doing RIP. [facility] Progress Note ASSESSESMENT: Diagnosis Plan 1. care, antepartum 2. Twin gestation, unable to determine number of placenta and number of amniotic sacs in second trimester 3. Depression affecting 4. 29 weeks gestation of PLAN: care, antepartum Has not yet done 1hr gTT. Stressed importance of doing RIP. Twin gestation, unable to determine number of placenta and number of amniotic sacs in second trimester Will return next week for growth US and BPP. She is here for 29w5d OB visit. Denies cramping leaking or bleeding or LOF PHYSICAL EXAM: BP 111/64 Wt 142 lb (64.4 kg) LMP (LMP Unknown) BMI 23.63 kg/m? I have reviewed her pertinent history, lab results, medications and problem list. See episode for any changes. Well appearing, Alert & oriented Skin warm & dry Normal range of motion in all extremities. Abdomen soft nontender Normal resp effort Mark Dowd MD 05/20/22 Follow up in about 2 weeks (around 06/03/2022) for growth US with BPP and OB appt. Normal [facility] ADDENDUMNOTEon 05-06-2022 ADDENDUMNOTE Addended by: MARK DOWD I. on: 05/28/2022 07:53 AM Modules accepted: Orders [facility] ADDENDUMNOTE Addended by: LARRY PURCELL on: 05/06/2022 04:21 PM Modules accepted: Orders [facility] Progress Noteon 05-06-2022 Progress Note ASSESSESMENT: Diagnosis Plan 1. care, antepartum Glucose Challenge Screen, CBC auto differential CBC auto differential 2. Twin gestation, unable to determine number of placenta and number of amniotic sacs in second trimester US OB follow up transabdominal approach US biophysical profile wo non stress testing 3. Depression affecting 4. 27 weeks gestation of PLAN: Twin gestation, unable to determine number of placenta and number of amniotic sacs in second trimester Growth US today showed AGA babies, baby A EFW 1292gm 65% AC 80% bab B EFW 1262gm 63% AC 83% MONET wnl, 2% discordancy. Will repeat growth US in 4 weeks and start weekly BPPs at 32 weeks. care, antepartum Orders placed for CBC and 1hr gTT. Flu and TDap today. She is here for 27w5d OB visit. Denies cramping leaking or bleeding or LOF PHYSICAL EXAM: BP 123/81 Wt 142 lb (64.4 kg) LMP (LMP Unknown) BMI 23.63 kg/m? I have reviewed her pertinent history, lab results, medications and problem list. See episode for any changes. Well appearing, Alert & oriented Skin warm & dry Normal range of motion in all extremities. Abdomen soft nontender Normal resp effort Mark Dowd MD 05/06/22 Follow up in about 2 weeks (around 05/20/2022) for OB Appointment. Normal [facility] Progress Note Orders placed for CB C and 1hr gTT. Flu and TDap today. Normal [facility] Progress Note Growth US today show ed AGA babies, baby A EFW 1292gm 65% AC 80% bab B EFW 1262gm 63% AC 83% MONET wnl, 2% discordancy. Will repeat growth US in 4 weeks and start weekly BPPs at 32 weeks. Normal [facility] US OB FOLLOW UP TRANSABDOMIN AL Carmen 05-06-2022 US OB FOLLOW UP TRANSABDOMINAL APPROACH OBSTETRICS REPORT (Signed Final 05/06/2022 09:35 pm) PATIENT INFO: ID #: [id number] : [birth year] (26 yrs)(F) Name: CATALINA MARVIN Visit Date: 05/06/2022 03:45 pm PERFORMED BY: Attending: José Suarez MD Performed By: Analisa Fitzgerald RDMS Referred By: MARK DOWD MD Location: [facility] [place] REVIEW ASSISTANT [facility] Visit Type: [facility] REVIEW ASSISTANT SERVICE(S) [place]: [place] [id number] [place] [address] INDICATIONS: Twins/ Growth/ EDC 07/31/22 = 27w5d Twin , unable to determine O30.092 number of placenta and number of amniotic sacs, second trimester 27 weeks gestation Z3A.27 EVALUATION (FETUS A): Num Of Fetuses: 2 Preg. Location: Intrauterine Heart Rate(bpm): 152 Cardiac Activity: Regular rhythm Lie: Longitudinal Maternal LT Presentation: Vertex Placenta: Anterior grade 1 no previa P. Cord Insertion: Normal Amniotic Fluid MONET FV: Appears WNL Largest Pocket(cm) 6.51 BIOMETRY (FETUS A): BPD: 70.7 mm G.Age: 28w 3d 61 % OFD: 93.7 mm HC: 261.7 mm G.Age: 28w 3d 44 % AC: 247.7 mm G.Age: 29w 0d 80 % FL: 54.5 mm G.Age: 28w 6d 68 % CI: 75.5 % 70 - 86 FL/HC: 20.8 % 18.8 - 20.6 HC/AC: 1.06 1.05 - 1.21 FL/BPD: 77.1 % 71 - 87 FL/AC: 22.0 % 20 - 24 Est. FW: 1292 gm 2 lb 14 oz 65 % FW Discordancy: 0 \ 2 % GESTATIONAL AGE (FETUS A): Clinical SAPNA: 27w 5d SAPNA: 07/31/22 U/S Today: 28w 5d SAPNA: 07/24/22 Best: 27w 5d Det. By: Clinical SAPNA SAPNA: 07/31/22 TARGETED ANATOMY (FETUS A): Central Nervous System Calvarium/Cranial V.: Normal appearance Intracranial Kristan: Normal appearance Cavum: Normal appearance Parenchyma: Normal appearance Lateral Ventricles: Normal appearance Choroid Plexus: Normal appearance Cereb./Vermis: Normal appearance Cisterna Magna: Normal appearance Corpus Callosum: Normal appearance Midline Falx: Normal appearance Spine Cervical: Normal appearance Thoracic: Normal appearance Lumbar: Normal appearance Sacral: Normal appearance Head/Neck Face: Normal appearance Lips: Normal appearance Profile: Normal appearance Orbits/Eyes: Normal appearance Thorax Thoracic Contour: Normal appearance 4 Chamber View: Normal appearance Cardiac Activity: Normal appearance Cardiac Rhythm: Normal appearance Cardiac Situs: Normal appearance Rt Outflow Tract: Normal appearance Lt Outflow Tract: Not visualized Cardiac Forgan: Normal appearance Diaphragm: Normal appearance 3 Vessel View: Normal appearance 3 V Trachea View: Normal appearance Abdomen Ventral Wall: Normal appearance Cord Insertion: Normal appearance Situs: Normal appearance Stomach: Normal appearance Lt Kidney: Normal appearance Rt Kidney: Normal appearance Bladder: Normal appearance Extremities Lt Humerus: Not visualized Rt Humerus: Normal appearance Lt Forearm: Normal appearance Rt Forearm: Normal appearance Lt Hand: Normal appearance Rt Hand: Not visualized Lt Femur: Normal appearance Rt Femur: Normal appearance Lt Lower Leg: Normal appearance Rt Lower Leg: Normal appearance Lt Foot: Normal appearance Rt Foot: Normal appearance Other Umbilical Cord: Normal 3-vessel Genitalia: Female Comment: Renal arteries appear normal. EVALUATION (FETUS B): Num Of Fetuses: 2 Preg. Location: Intrauterine Heart Rate(bpm): 146 Cardiac Activity: Regular rhythm Lie: Longitudinal Maternal RT Presentation: Vertex Placenta: Posterior grade 1 no previa P. Cord Insertion: Normal Amniotic Fluid MONET FV: Appears WNL Largest Pocket(cm) 5.29 BIOMETRY (FETUS B): BPD: 68.2 mm G.Age: 27w 3d 29 % OFD: 92.4 mm HC: 256.9 mm G.Age: 27w 6d 26 % AC: 248.2 mm G.Age: 29w 0d 81 % FL: 53.9 mm G.Age: 28w 4d 60 % CI: 73.8 % 70 - 86 FL/HC: 21.0 % 18.8 - 20.6 HC/AC: 1.04 1.05 - 1.21 FL/BPD: 79.0 % 71 - 87 FL/AC: 21.7 % 20 - 24 Est. FW: 1262 gm 2 lb 13 oz 63 % FW Discordancy: 2 % GESTATIONAL AGE (FETUS B): Clinical SAPNA: 27w 5d SAPNA: 07/31/22 U/S Today: 28w 2d SAPNA: 07/27/22 Best: 27w 5d Det. By: Clinical SAPNA SAPNA: 07/31/22 (more content not included)... Normal [facility] 36on 04-20-2022 36 S: Patient spoke hilda h [facility] nurse regarding 25w3d - Concerned about pelvic pain & nausea B: Onset of symptoms/concern last night A: Patient states went to ED yesterday for leakage of fluid. States they did a pelvic exam and was not amniotic fluid, States she has had nausea and has vomited 15 times in the last 24 hours. States she is not urinating. States she feels pelvic pressure since exam. Denies decrease in movement, leakage of fluid, or contractions. R: Advised L&D for evaluation and care. States she will go to [facility] L[facility] and have someone drive her. Home care advice given. Patient understands care advice. No further needs at this time. Patient instructed to call back with new or worsening symptoms. Reason for Disposition Unable to keep ANY liquids down (without vomiting) this past 24 hours Protocols used: - Morning Sickness (Nausea and Vomiting of )-ADULT-[place] Normal [facility] AMNIon 04-20-2022 Amnisure Negative Normal [facility] Comment on above: Performed By: #### [facility] #### [address] [address] Progress Noteon 04-08-2022 Progress Note PNP drawn today. Was not drawn with Horizon and panorama last week. Normal [facility] Progress Note Anatomy US on 04/07 showed Amna twin , normal anatomy for baby A and B, CL 3.79cm. Will repeat growth US in 4 weeks. Start weekly BPPs at 32 weeks. Rx for ASA 81mg qDay. Normal [facility] Progress Note ASSESSESMENT: Diagnosis Plan 1. Twin gestation, unable to determine number of placenta and number of amniotic sacs in second trimester US OB follow up transabdominal approach 2. care, antepartum ABO/Rh Antibody screen CBC auto differential Hepatitis B surface antigen Hepatitis C antibody HIV-1 and HIV-2 Antigen-Antibody Screen RPR Rubella antibody, IgG 3. 23 weeks gestation of 4. state, incidental HIV-1 and HIV-2 Antigen-Antibody Screen PLAN: Twin gestation, unable to determine number of placenta and number of amniotic sacs in second trimester Anatomy US on 04/07 showed Amna twin , normal anatomy for baby A and B, CL 3.79cm. Will repeat growth US in 4 weeks. Start weekly BPPs at 32 weeks. Rx for ASA 81mg qDay. care, antepartum PNP drawn today. Was not drawn with [facility] and panorama last week. She is here for 23w5d OB visit. Denies cramping leaking or bleeding or LOF PHYSICAL EXAM: BP 120/67 Wt 63 kg LMP (LMP Unknown) BMI 23.13 kg/m? I have reviewed her pertinent history, lab results, medications and problem list. See episode for any changes. Well appearing, Alert & oriented Skin warm & dry Normal range of motion in all extremities. Abdomen soft nontender Normal resp effort Mark Dowd MD 04/08/22 Follow up in about 4 weeks (around 05/06/2022) for growth US and OB appt. Normal [facility] US OB 14+ WEEKS EACH ADDITIO NAL GESTATIONon 04-07-2022 US OB 14+ WEEKS EACH ADDITIONAL GESTATION OBSTETRICS REPORT (Signed Final 04/07/2022 08:11 pm) PATIENT INFO: ID #: [id number] : [birth year] (26 yrs)(F) Name: CATALINA MARVIN Visit Date: 04/07/2022 03:04 pm PERFORMED BY: Attending: Arturo Pederson MD Performed By: Charity Washburn RDMS Referred By: RAMONA HALL CNM Location: [facility] REVIEW ASSISTANT Lo Visit Type: [facility] REVIEW ASSISTANT SERVICE(S) PROVIDED: US >= 14 weeks [id number] US >= 14 weeks additional fetus [id number] INDICATIONS: Anatomy/Twins/EDC 07/31/22 = 23w4d Encounter for screening for Z36.3 malformations Twin , unable to determine O30.092 number of placenta and number of amniotic sacs, second trimester 23 weeks gestation Z3A.23 Di/ Di Twins EVALUATION (FETUS A): Num Of Fetuses: 2 Preg. Location: Intrauterine Heart Rate(bpm): 169 Cardiac Activity: Present Lie: Maternal LT Presentation: Breech Placenta: Anterior grade 0 no previa P. Cord Insertion: Normal Membrane Desc: Dichorionic - diamniotic Membrane Size: Normal Amniotic Fluid MONET FV: Appropriate for gestational age BIOMETRY (FETUS A): BPD: 56.8 mm G.Age: 23w 3d 36 % OFD: 76.4 mm HC: 213.9 mm G.Age: 23w 3d 29 % AC: 204.5 mm G.Age: 25w 0d 84 % FL: 44.3 mm G.Age: 24w 4d 71 % CER: 25.9 mm G.Age: 23w 3d 64 % LV: 3.27 mm CM: 6.08 mm CI: 74.3 % 70 - 86 FL/HC: 20.7 % 18.7 - 20.9 HC/AC: 1.05 1.05 - 1.21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 Signed by: MD FELECIA, EULALIA ROBERTS Transcribed Date and Time: 02/03/2022 5:05 Report OBSTETRICAL ULTRASOUND -SECOND TRIMESTER: CLINICAL INDICATION: Fall, abdominal pain. TECHNIQUE: Transabdominal ultrasound of pelvis COMPARISON: None. FINDINGS: A single live intrauterine gestation is identified. A normal quantity of amniotic fluid is noted for the gestational age. The placenta is anterior. There is no evidence for low lying placenta or placenta previa . Measured biometric dating parameters include: BPD: 3.1 cm, corresponding to 15 weeks, 5 days gestational age Head circumference: 12 cm, corresponding to 15 weeks, 6 days gestational age Abdominal circumference: 9.9 cm, corresponding to 16 weeks, 0 days gestational age Femur length: 1.8 cm, corresponding to 15 weeks, 3 days gestational age cardiac activity is identified with heart rate of 174 beats per minute. presentation is cephalic. Please note examination was not to assess for anatomy. IMPRESSION: Single live intrauterine gestation with an estimated gestational age of 15 weeks and five days utilizing biparietal diameter. Report Dictated on Final Dictated: 02/03/2022 4:38 pm Dictating Physician: MD FELECIA, EULALIA ROBERTS Signed Date and Time: 02/03/2022 4:39 pm Signed by: MD SHAHID WASSIM OSAMA Transcribed Date and Time: 02/03/2022 4:38 Report last revised on 02/03/2022 17:08 EDT by MD FELECIA, EULALIA ROBERTS Normal [facility] Urinalysison 02-03-2022 Appearance (U) Clear Clear NA [employer] Work Phone: Comment on above: . Bacteria, UA Few (1-5) Abnormal Negative /[HPF] [facility] Work Phone: [phone] Comment on above: . Bilirubin Urine Negative Negative mg/dL [facility] Work Phone: [phone] Comment on above: . Color (U) COLORLESS Lt. Yellow NA [facility] Work Phone: [phone] Comment on above: . Glucose, Ur Normal Normal (<70) mg/dL [facility] Work Phone: [phone] Comment on above: . Interpretation and review of laboratory results Abnormal [facility] Work Phone: Ketones Ql (U) 40 mg/dL Abnormal Negative [facility] Work Phone: [phone] Comment on above: . LEUKOCYTES, UA 25 Abnormal Negative [place]/uL [facility] Work Phone: [phone] Comment on above: . Nitrite, Urine Negative Negative NA [facility] Work Phone: [phone] Comment on above: . Occult Blood,Urine Negative Negative mg/dL [facility] Work Phone: [phone] Comment on above: . pH (U) 6.5 [pH] [facility] Work Phone: [phone] Comment on above: . RBC (U) [#/Vol] Negative 0 - 2 /[HPF] [facility] Work Phone: [phone] Comment on above: . Specific [place], Urine 1.007 [facility] Work Phone: [phone] Comment on above: . Squam Epithel, UA 6-10 Abnormal 3 - 5 /[HPF] [facility] Work Phone: [phone] Comment on above: . Total Protein, Urine Negative Negativ e mg/dL [facility] Work Phone: [phone] Comment on above: . Urobilinogen, Urine Normal Normal (0-1) mg/dL [facility] Work Phone: [phone] Comment on above: . Volume 12 ml [facility] Work Phone: [phone] Comment on above: . WBC, UA /[HPF] 0 - 5 /[HPF] [facility] Work Phone: [phone] Comment on above: . Test Performed by [facility], [address] [place] [address] [facility] Work Phone: [phone] Quantitativeon 2 hCG Quantitative 331783 m[IU]/mL Normal [facility] Comment on above: Result Comment: Fema les < 5 Values in should double every 2 to 3 days for the first 6 weeks.Elevated concentrations of human chorionic gonadotropin (hCG) measured in the first trimester of are observed in normal , but may serve as an indication of chorionic carcinoma, hydatiform mole, or multiple .Decreasing hCG concentrations indicate threatened or missed , recent termination of , ectopic , gestosis or intrauterine . Thais- and postmenopausal females may have detectable hCG concentrations (< or = to 14 mIU/mL) due to pituitary production of hCG. Serum follicle-stimulating hormone measurement may aid in ruling-out in this population. Cutoffs of greater than 20 to 45 mIU/mL have been suggested and are method dependent. False-elevations (called phantom human chorionic gonadotropin: hCG) may occur with patients who have human antianimal or heterophilic antibodies. Some specimens may not dilute linearly due to abnormal forms of hCG. Elevated hCG concentrations not associated with are found in patients with other diseases such as tumors of the germ cells, ovaries, bladder, pancreas, stomach, lungs, and liver. This test is not intended to detect or monitor tumors or gestational trophoblastic disease. Performed By: #### [id number] #### [facility] [address] [place] [id number] .Auto Diffon 12-09-2021 Basophil, Absolute 0.0 10 3/mcL Normal 0.0-0.2 [facility] ([place]) Comment on above: Performed By: #### AUDREY HORN #### [address] [address] Basophils/100 WBC (Bld) 0.5 % Normal 0.0-2.5 [facility] ([place]) Comment on above: Performed By: #### AUDREY HORN #### [address] [address] Eosinophil, Absolute 0.0 10 3/mcL Normal 0.0-0.4 [facility] ([place]) Comment on above: Performed By: #### AUDREY HORN #### [address] [address] Eosinophils/100 WBC (Bld) 0.2 % Normal 0.0-7.0 [facility] ([place] Comment on above: Performed By: #### AUDREY HORN #### [address] [address] Lymphocyte, Absolute 0.6 10 3/mcL Low 0.8-3.9 [facility] ([place]) Comment on above: Performed By: #### AUDREY HORN #### [address] [address] Lymphocytes/100 WBC (Bld) 6.4 % Low 10.0-50.0 [facility] ([place] Comment on above: Performed By: #### AUDREY HORN #### [place] [address] [address] Monocyte, Absolute 0.4 10 3/mcL Normal 0.2-1.0 [facility] ([place]) Comment on above: Performed By: #### AUDREY HORN #### [place] [address] [address] Monocytes/100 WBC (Bld) 3.7 % Normal 1.7-13.0 [facility] ([place]) Comment on above: Performed By: #### AUDREY HORN #### [place] [address] [address] Neutrophils/100 WBC (Bld) 89.2 % High 37.0-80.0 [facility] ([place] Comment on above: Performed By: #### AUDREY HORN #### [place] [address] [address] .GFRon 12-09-2021 GFR 121 ml/min/1.73sqm Normal [facility] ([place]) Comment on above: Result Comment: GFR Population mean for , Non- Americans Ages 20-29 = 116 mL/min/1.73 sq.m. Ages 30-39 = 107 mL/min/1.73 sq.m. Ages 40-49 = 99 mL/min/1.73 sq.m. Ages 50-59 = 93 mL/min/1.73 sq.m. Ages 60-69 = 85 mL/min/1.73 sq.m. Ages 70+ = 75 mL/min/1.73 sq.m. Chronic Kidney Disease: Less than 60 mL/min/1.73 square meters End Stage Renal Disease: Less than 15 mL/min/1.73 square meters Performed By: #### G FR, BMP #### [address] [address] GFR Non- 100 ml/min/1.73sqm Normal [facility] ([place] Comment on above: Result Comment: GFR Population mean for , Non- Americans Ages 20-29 = 116 mL/min/1.73 sq.m. Ages 30-39 = 107 mL/min/1.73 sq.m. Ages 40-49 = 99 mL/min/1.73 sq.m. Ages 50-59 = 93 mL/min/1.73 sq.m. Ages 60-69 = 85 mL/min/1.73 sq.m. Ages 70+ = 75 mL/min/1.73 sq.m. Chronic Kidney Disease: Less than 60 mL/min/1.73 square meters End Stage Renal Disease: Less than 15 mL/min/1.73 square meters Performed By: #### G FR, BMP #### [place] [address] .MDWon 12-09-2021 Monocyte Distribution Width 18.57 Normal 0.00-20.00 [facility] ([place]) Comment on above: Result Comment: For ED adult patients suspected of sepsis, MDW<=20.0 does not rule out sepsis or risk of sepsis Performed By: #### U AMICAO, UA #### [place] [address] .NEUABSon 12-09-2021 Neutrophil, Absolute 8.9 10 3/mcL High 2.9-6.2 [facility] ([place]) Comment on above: Performed By: #### U AMICAO, UA #### [place] [address] .Urinalysis Microscopic (AO) on 12-09-2021 UA Bacteria 1+ /hpf Abnormal [facility] ([place]) Comment on above: Performed By: #### U AMICAO, UA #### [place] [address] UA RBC 0-5 Abnormal None Seen [facility] ([place]) Comment on above: Performed By: #### U AMICAO, UA #### [place] [address] UA Squam Epithelial 10-15 Abnormal None Seen [facility] ([place]) Comment on above: Performed By: #### U AMICAO, UA #### [address] [address] UA WBC 10-15 Abnormal None Seen [facility] ([place]) Comment on above: Performed By: #### U AMICAO, UA #### [address] [address] BMPon 12-09-2021 BUN/Creatinine Ratio 14 ratio Normal 7-27 [facility] ([place]) Comment on above: Performed By: #### G FR, BMP #### [address] [address] Calcium [Mass/Vol] 9.3 mg/dL Normal 8.4-10.2 [facility]) Comment on above: Performed By: #### G FR, BMP #### [address] [address] Chloride [Moles/Vol] 102 mmol/L Normal 98-107 Count includes the [facility]) Comment on above: Performed By: #### G FR, BMP #### [address] [address] CO2 [Moles/Vol] 24 mmol/L Normal 22-29 [facility] ([place]) Comment on above: Performed By: #### G FR, BMP #### [address] [address] Creatinine [Mass/Vol] 0.72 mg/dL Normal 0.55-1.02 [facility] ([place]) Comment on above: Performed By: #### G FR, BMP #### [address] [address] Electrolyte Balance 10.0 mEq/L Normal 4.0-15.0 [facility] ([place]) Comment on above: Performed By: #### G FR, BMP #### [address] [address] Glucose [Mass/Vol] 92 mg/dL Normal 70-105 [facility] ([place]) Comment on above: Performed By: #### G FR, BMP #### [address] [address] Potassium [Moles/Vol] 4.0 mmol/L Normal 3.5-5.1 [facility] ([place]) Comment on above: Performed By: #### G FR, BMP #### [address] [address] Sodium [Moles/Vol] 136 mmol/L Normal 136-145 [facility] ([place]) Comment on above: Performed By: #### G FR, BMP #### [address] [address] Urea nitrogen [Mass/Vol] 10 mg/dL Normal 7-18 [facility] ([place] Comment on above: Performed By: #### G , BMP #### [address] [address] CBCon 12-09-2021 Erythrocyte distribution width (RBC) [Ratio] 12.8 % Normal 11.5-14.5 [facility] ([place] Comment on above: Performed By: #### Sandro PUGH UA #### [address] [address] Hematocrit (Bld) [Volume fraction] 40.9 % Normal 37.0-47.0 [facility] ([place] Comment on above: Performed By: #### Sandro AMIMINAL, UA #### [address] [address] Hgb 14.7 G/dL Normal 12.0-16.0 [facility] ([place] Comment on above: Performed By: #### U KEATON, UA #### [address] [address] MCH (RBC) [Entitic mass] 31.9 pg High 27.0-31.2 [facility] ([place] Comment on above: Performed By: #### U KEATON, UA #### [address] [address] MCHC 35.9 G/dL Normal 33.0-37.0 [facility] ([place] Comment on above: Performed By: #### Sandro PUGH UA #### [address] [address] MCV (RBC) [Entitic vol] 88.9 fL Normal 80.0-94.0 [facility] ([place] Comment on above: Performed By: #### Sandro PUGH UA #### [address] [address] Platelet 265 10 3/mcL Normal 130-400 [facility] ([place] Comment on above: Performed By: #### Sandro PUGH UA #### [address] [address] Platelet mean volume (Bld) [Entitic vol] 7.4 fL Normal 7.4-10.4 [facility] ([place] Comment on above: Performed By: #### Sandro PUGH UA #### [address] [address] RBC 4.60 10 6/mcL Normal 4.20-5.40 [facility] ([place] Comment on above: Performed By: #### Sandro PUGH UA #### [address] [address] WBC 10.0 10 3/mcL Normal 4.6-10.8 [facility] ([place] Comment on above: Performed By: #### Sandro PUGH UA #### [address] [address] Gel ABOon 12-09-2021 ABO/Rh Interp Positive Invalid Interpretation Code [facility] ([place]) Comment on above: Performed By: #### Sandro PUGH UA #### [address] [address] HCGQon 12-09-2021 hCG, quantitative 551809.8 mIU/mL Normal [facility] ([place]) Comment on above: Result Comment: HCG Levels with Gestation age: 0.2- 1 week. . . . . . . . . . . . . . . 5 - 50 mIU/mL 1-2 weeks . . . . . . . . . . . . . . . 50 - 500 mIU/mL 2-3 weeks . . . . . . . . . . . . . . . 100 - 5,000 mIU/ml 3-4 weeks . . . . . . . . . . . . . . . 500 - 10,000 mIU/mL 4-5 weeks . . . . . . . . . . . . . . . 1,000 - 5,000 mIU/mL 5-6 weeks . . . . . . . . . . . . . . . 10,000 - 100,000 mIU/mL 6-8 weeks . . . . . . . . . . . . . . . 15,000 - 200,000 mIU/mL 2-3 months . . . . . . . . . . . . . . . 10,000 - 100,000 mIU/mL Performed By: #### G FR, [facility] #### [place] [address] LABORATORYOrdered By: Dionna Costello on 12-09-2021 ABO/Rh Interp Positive Invalid Interpretation Code AO BB SS Appearance (U) Clear (12/09/21 8:17 PM) Invalid Interpretation Code Clear AO Auto Urine SS Bacteria LM.HPF (Urine sed) [#/Area] 1 /[HPF] Invalid Interpretation Code AO Auto Urine SS Basophil, Absolute 0.0 103/mcL Invalid Interpretation Code 0.0 - 0.2 10^3/mcL AO Workflow SS Basophils/100 WBC (Bld) 0.5 % Invalid Interpretation Code 0.0 - 2.5 % AO Workflow SS Bilirubin Ql (U) Small *ABN* (12/09/21 8:17 PM) Invalid Interpretation Code Negative AO Auto Urine SS Calcium [Mass/Vol] 9.3 mg/dL Invalid Interpretation Code 8.4 - 10.2 mg/dL AO ADM SS Chloride [Moles/Vol] 102 mmol/L Invalid Interpretation Code 98 - 107 mmol/L AO ADM SS CO2 [Moles/Vol] 24 mmol/L Invalid Interpretation Code 22 - 29 mmol/L AO ADM SS Color (U) Yellow (12/09/21 8:17 PM) Invalid Interpretation Code AO Auto Urine SS Creatinine [Mass/Vol] 0.72 mg/dL Invalid Interpretation Code 0.55 - 1.02 mg/dL AO ADM SS Electrolyte Balance 10.0 mEq/L Invalid Interpretation Code 4.0 - 15.0 mEq/L AO ADM SS Eosinophil, Absolute 0.0 103/mcL Invalid Interpretation Code 0.0 - 0.4 10^3/mcL AO Workflow SS Eosinophils/100 WBC (Bld) 0.2 % Invalid Interpretation Code 0.0 - 7.0 % AO Workflow SS Erythrocyte distribution width (RBC) [Ratio] 12.8 % Invalid Interpretation Code 11.5 - 14.5 % AO Workflow SS Glucose [Mass/Vol] 92 mg/dL Invalid Interpretation Code 70 - 105 mg/dL AO ADM SS Glucose Test strip (U) [Mass/Vol] Negative Invalid Interpretation Code Negativemg/ dL AO Auto Urine SS HCG Qn 257294.8 m[IU]/mL Invalid Interpretation Code AO ADM SS Hematocrit (Bld) [Volume fraction] 40.9 % Invalid Interpretation Code 37.0 - 47.0 % AO Workflow SS Hemoglobin (Bld) [Mass/Vol] 14.7 G/dL Invalid Interpretation Code 12.0 - 16.0 G/dL AO Workflow SS Hemoglobin Auto test strip (U) [Mass/Vol] Negative (12/09/21 8:17 PM) Invalid Interpretation Code Negative AO Auto Urine SS Ketones Ql (U) 80 mg/dL Invalid Interpretation Code Negativemg/ dL AO Auto Urine SS Lymphocyte, Absolute 0.6 103/mcL Invalid Interpretation Code 0.8 - 3.9 10^3/mcL AO Workflow SS Lymphocytes/100 WBC (Bld) 6.4 % Invalid Interpretation Code 10.0 - 50.0 % AO Workflow SS MCH (RBC) [Entitic mass] 31.9 pg Invalid Interpretation Code 27.0 - 31.2 pg AO Workflow SS MCHC 35.9 G/dL Invalid Interpretation Code 33.0 - 37.0 G/dL AO Workflow SS MCV (RBC) [Entitic vol] 88.9 fL Invalid Interpretation Code 80.0 - 94.0 fL AO Workflow SS Monocyte distribution width Auto (Bld) [Entitic vol] 18.57 Invalid Interpretation Code 0.00 - 20.00 AO Workflow SS Comment on above: Result Comment: For ED adult patients suspected of sepsis, MDW<=20.0 does not rule out sepsis or risk of sepsis Monocyte, Absolute 0.4 103/mcL Invalid Interpretation Code 0.2 - 1.0 10^3/mcL AO Workflow SS Monocytes/100 WBC (Bld) 3.7 % Invalid Interpretation Code 1.7 - 13.0 % AO Workflow SS Neutrophil, Absolute 8.9 103/mcL Invalid Interpretation Code 2.9 - 6.2 10^3/mcL AO Workflow SS Neutrophils/100 WBC (Bld) 89.2 % Invalid Interpretation Code 37.0 - 80.0 % AO Workflow SS Platelet mean volume (Bld) [Entitic vol] 7.4 fL Invalid Interpretation Code 7.4 - 10.4 fL AO Workflow SS Platelets (Bld) [#/Vol] 265 103/mcL Invalid Interpretation Code 130 - 400 10^3/mcL AO Workflow SS Potassium [Moles/Vol] 4.0 mmol/L Invalid Interpretation Code 3.5 - 5.1 mmol/L AO ADM SS RBC (Bld) [#/Vol] 4.60 106/mcL Invalid Interpretation Code 4.20 - 5.40 10^6/mcL AO Workflow SS Sodium [Moles/Vol] 136 mmol/L Invalid Interpretation Code 136 - 145 mmol/L AO ADM SS UA Leuk Est Trace *ABN* (12/09/21 8:17 PM) Invalid Interpretation Code Negative AO Auto Urine SS UA Nitrite Negative (12/09/21 8:17 PM) Invalid Interpretation Code Negative AO Auto Urine SS UA pH 6.0 (12/09/21 8:17 PM) Invalid Interpretation Code 5.0 - 8.0 AO Auto Urine SS UA Protein Negative Invalid Interpretation Code Negativemg/ dL AO Auto Urine SS UA RBC 0-5 /HPF Invalid Interpretation Code None Seen/HPF AO Auto Urine SS UA Spec Grav >=1.030 *ABN* (12/09/21 8:17 PM) Invalid Interpretation Code 1.015-1.025 AO Auto Urine SS UA Specimen Type Clean Catch (12/09/21 8:17 PM) Invalid Interpretation Code AO Auto Urine SS UA Squam Epithelial 10-15 /HPF Invalid Interpretation Code None Seen/HPF AO Auto Urine SS UA Urobilinogen 0.2 E.U./dL Invalid Interpretation Code 0.2-1.0E.U. /dL AO Auto Urine SS Urea nitrogen [Mass/Vol] 10 mg/dL Invalid Interpretation Code 7 - 18 mg/dL AO ADM SS Urea nitrogen/Creatinine [Mass ratio] 14 ratio Invalid Interpretation Code 7 - 27 ratio AO ADM SS WBC 10.0 103/mcL Invalid Interpretation Code 4.6 - 10.8 10^3/mcL AO Workflow SS WBC LM.HPF (Urine sed) [#/Area] 10-15 /HPF Invalid Interpretation Code None Seen/HPF AO Auto Urine SS LABORATORYOrdered By: SYSTEM SYSTEM on 12-09-2021 GFR 121 ml/min/1.73sqm Invalid Interpretation Code AO Chemistry S GFR Non- 100 ml/min/1.73sqm Invalid Interpretation Code AO Chemistry S UAon 12-09-2021 Color (U) Yellow [facility] Comment on above: Performed By: #### U AMICAO, UA #### [place] [id number] Glucose (U) [Mass/Vol] Negative Normal [facility] Comment on above: Performed By: #### U AMICAO, UA #### [place] [address] Ketones Ql (U) 80 mg/dL Abnormal Negative [facility] Comment on above: Performed By: #### U AMICAO, UA #### [address] [address] UA Appear Clear Normal Clear [facility] Comment on above: Performed By: #### U AMICAO, UA #### [address] [address] UA Bili Small Abnormal Negative [facility] Comment on above: Performed By: #### U AMICAO, UA #### [address] [address] UA Blood Negative Normal [facility] Comment on above: Performed By: #### U AMICAO, UA #### [address] [address] UA Leuk Est Trace Abnormal Negative [facility] Comment on above: Performed By: #### U AMICAO, UA #### [address] [address] UA Nitrite Negative Normal Negative [facility] Comment on above: Performed By: #### U AMICAO, UA #### [address] [address] UA pH 6.0 Normal 5.0 - 8.0 [facility] Comment on above: Performed By: #### U AMICAO, UA #### [address] [address] UA Protein Negative Normal Negative Counts include 234 beds at the [facility]) Comment on above: Performed By: #### U AMICAO, UA #### [address] [address] UA Spec Grav >=1.030 Abnormal 1.015-1.025 [facility] Comment on above: Performed By: #### U AMICAO, UA #### [address] [address] UA Specimen Type Clean Catch Normal Counts include 234 beds at the [facility]) Comment on above: Performed By: #### U AMICAO, UA #### [address] [address] UA Urobilinogen 0.2 E.U./dL Normal 0.2-1.0 [facility] Comment on above: Performed By: #### U AMICAO, UA #### [place] [id number] Emergency Department Summary on 11-02-2020 Emergency Department Summary [facility] Medical Records Department [address] [place] [id number] Emergency Department Summary 11/02/20 MR#: [id number] Acct: [id number] Name: CATALINA MARVIN Ben Rep #: [id number] : 1995 25 From: Ramon Haque MD PCP: Care Physician, No Primary Status:REG ER Location: ED HPI History of Present Illness Chief Complaint: Nausea/Vomiting Informant: patient and friend Onset/Context/Timing Onset: Today (early this AM) Context: Gradual Onset (ingesting drugs and etoh) Timing: Continuous Quality: n/v, malaise Location: all over Current Severity: Moderate Maximum Severity: Moderate Worsened by: trying to eat/drink Relieved by: nothing Associated Symptoms Associated Symptoms: headache, lightheaded Narrative Narrative: Patient and her friend were partying last night, she did not have a lot of alcohol to drink, but they were drinking some type of drug that they were under the impression was mildly/MDMA, but they are suspicious that it could have also included some type of opioid and methamphetamine possibly as well. Since doing all this she started feeling nauseated and progressed to vomiting, she has been vomiting all morning/night, and states as a result of the vomiting she has some abdominal muscular soreness but denies any abdominal pains prior to the vomiting. She feels malaised, lightheaded, has a headache, no other focal symptoms. Last normal menstrual cycle was 2.5-3 weeks ago, she has been regular she denies or any other recent injury or illness. [facility] Medical History (Updated 11/02/20 @ 08:16 by Adam Orellana) Raynaud's disease no medical history Home Medications NK 11/08/19 [History Last Taken Unknown] Allergy/AdvReac Type Severity Reaction Status Date / Time No Known Allergies Allergy Verified 11/02/20 07:28 Social History (Updated 11/02/20 @ 07:[address] 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 and other details: Does not use IV drugs ROS ROS ED Constitutional Constitutional ED: Reports malaise; Denies chills or fever(s) Eyes Eyes: Denies change in vision or diplopia ENT ENT ED: Denies rhinorrhea or sore throat Cardiovascular Cardiovascular: Denies chest pain or palpitations Respiratory/Chest Respiratory/Chest: Denies cough or dyspnea Gastrointestinal Gastrointestinal: Denies abdominal pain or diarrhea Genitourinary Genitourinary ED: Denies dysuria or hematuria Musculoskeletal Musculoskeletal: Denies back pain or neck pain Integumentary Denies abscess or rash Neurologic Neurologic: Reports headache(s); Denies paresthesias or weakness Psychiatric Psychiatric: Denies anxiety or suicidal thoughts EXAM Physical Exam Const Vital Signs: 11/02/20 07:26 Temperature 97.9 F Temperature Source Temporal Pulse Rate 85 Respiratory Rate 18 Blood Pressure 107/70 Blood Pressure Mean 82 Pulse Ox 100 Oxygen Delivery Method Room Air Positive well nourished and well developed General Appearance ED: well developed and NAD HEENT Reports moist mucous membranes normocephalic and atraumatic Eyes PERRL and EOMs intact bilaterally Neck full ROM and supple Resp normal respiratory effort and clear to auscultation bilaterally Cardio regular rate, regular rhythm and no murmurs Rate: Negative for tachycardic GI non-tender and non-distended Auscultation: normoactive bowel sounds Palpation: soft Back/Spine no CVA tenderness General Back: other FROM Extremity normal to inspection General Extremety ED: Negative for edema, pulses abnormal or tenderness General Extremity: Negative for edema or pulses abnormal Neuro oriented x3, CN's II-XII intact bilaterally and no sensory deficits noted Sensorium / Orientation: awake and alert Motor Exam: strength 5/5 throughout Skin no rashes or lesions noted and no wounds MDM MDM MDM Narrative Medical decision making narrative: Patient was treated symptomatically with IV fluids, Zofran, Toradol. She felt better on reevaluation was able to tolerate oral fluids, and was discharged with appropriate discharge instructions. Discharge Plan Triage Chief Complaint: Nausea/Vomiting ED Provider: Ramon Haque Dx/Rx/DC Orders Clinical Impression: Nausea vomiting, Polysubstance abuse Instructions: ED Diet for Vomiting or Diarrhea Adult, ED Drug Abuse Prescriptions: No Action NK RF: 0 Primary Care Provider: Care Physician,No Primary Referrals: Zuly Garcia [NON-STAFF] - As Needed Care Physician,No Primary [Primary Care Provider] - Disposition Disposition: Home, self care What to do if you have Problems For any increased pain, shortness of breath, bleeding, nausea or vomiting, chest pain, or any une (more content not included)... Normal [facility] GC/Chlam Amp Genital/Rectal/ Oralon 02-05-2020 CT-DNA Amplified CT neg Normal [facility] Comment on above: Result Comment: Nega tive for Chlamydia trachomatis by amplification. Performed By: #### G CCTP #### [address] [address] GC-DNA Amplified GC neg Normal [facility] Comment on above: Result Comment: Nega tive for Neisseria gonorrhoeae by amplification. Performed By: #### G CCTP #### [address], [place] [address] GC/Chlam Amp Genital/Rectal/ Oralon 02-02-2020 GC/Chlam Amp Source Endocervix Normal [facility] Comment on above: Performed By: #### G CCTP #### [facility] [address] [place], [place] [address] HCG, Totalon 01-25-2020 HCG Qn m[IU]/mL Normal < 5.0 [facility] Comment on above: Result Comment: HCG values 5 to 16 mIU/mL may represent benign, pituitary age. QUANTITATIVE HCG NORMAL RANGES [Weeks of Gestation (Weeks Since LMP)]: 3 Weeks (5.8-71.2 mIU/mL) 4 Weeks (9.5-750 mIU/mL) 5 Weeks (217-7138 mIU/mL) 6 Weeks (158-30266 mIU/mL) 7 Weeks (3697-660457 mIU/mL) 8 Weeks (54602-085333 mIU/mL) 9 Weeks (01337-178193 mIU/mL) 10 Weeks (41511-936207 mIU/mL) 12 Weeks (85702-585816 mIU/mL) Referenced to 4th IS of [facility]. Patients taking a biotin dose of up to 5 mg/day should refrain from taking biotin for 4 hours prior to sample collection. Patients taking a biotin dose of 5 to 10 mg/day should refrain from taking biotin for 8 hours prior to sample collection. Patients taking a biotin dose > 10 mg/day should consult with their physician or the laboratory prior to having a sample taken. Clinicians should consider biotin interference as a source of error, when clinically suspicious of the laboratory result. Performed By: #### H CG #### [place] [address] Type and Screenon 01-25-2020 ABO group Nom (Bld) O Normal [facility] Comment on above: Performed By: #### T &S #### [place] [address] Comment Out Patient Normal [facility] Comment on above: Performed By: #### T &S #### [place] [address] RH Type Positive Normal [facility] Comment on above: Performed By: #### T &S #### [facility] [address] [place] [address] 12 Lead EKGon 11-11-2019 12 Lead EKG [facility] Cardiovascular Services [address] [place] [address] 12 Lead EKG 11/11/19 1359 MR#: [id number] Acct: [id number] Name: JEZ MARVINRAMU Contreras Rep #: [id number] : 1995 24 From: Luciano Patel MD Attending Dr: Status: DEP ER Ordering Dr: Yosvany Brambila Date: 11/11/19 Location: ED Sex: F C Admitted: Test Reason : DYSRHYTHMIA Blood Pressure : / mmHG Vent. Rate : 073 BPM Atrial Rate : 073 BPM P-R Int : 114 ms QRS Dur : 088 ms QT Int : 386 ms P-R-T Axes : 044 037 042 degrees QTc Int : 425 ms Normal sinus rhythm Normal ECG Confirmed by WILIAM ZABALA, LUCIANO ([id number]), news videotape editor JANY LU ([id number]) on 11/15/2019 1:04:40 PM Referred By: AP Confirmed By:LUCIANO PATEL MD 11/15/19 1304 Date Luciano Patel MD CC: No Primary Care Physician; ANURAG Brambila Signed Normal [facility] Emergency Department Summary on 11-11-2019 Emergency Department Summary [facility] Medical Records Department [address] [place] [address] Emergency Department Summary 11/11/19 MR#: [id number] Acct: [id number] Name: CATALINA MARVIN Rep #: [id number] : 1995 24 From: Yosvany OSBORN PCP: Care Physician, No Primary Status:DEP ER History of Present Illness Informant: Patient Onset: Today Context: Sudden Onset Timing: Lasts - 5 seconds Quality: near-Syncope Location: head Current Severity: Mild Maximum Severity: Severe Worsened by: exertion Relieved by: rest Associated Symptoms: Fatigue Narrative: 24-year-old female history of iron deficiency anemia presents to the emergency department with near syncope. She was seen here few days ago for similar. She is getting episodes when she stands up from a seated or lying position where she feels near syncopal but has not actually lost consciousness. No seizure-like activity. No chest pain shortness of breath or palpitations. She does not feel like her heart racing. No headache or neck pain. No room spinning sensation. No visual changes or loss of vision. No numbness tingling or weakness. No difficulty with speech or ambulation. No chest pain or hemoptysis. No leg pain or swelling. She is not on control. She denies risk factors for pulmonary embolism. She has been noncompliant with her iron. Denies symptoms of bleeding. Prior similar symptoms: Yes Recent Illness/Hospitalization: No Chief Complaint: Syncope Past Medical History Prior records reviewed: Yes Past Medical History: - - Iron deficiency anemia Surgical History: no surgical history Lives: With Family Smoking Status: Never smoker Alcohol: None Drugs: None - Allergies and Home Meds Allergies/Adverse Reactions: Allergies No Known Allergies Allergy (Verified 11/11/19 13:38) Primary Care Physician: Care Physician,No Primary [Primary Care Provider] - Review of Systems All systems negative except as indicated General: Denies: Chills, Fever, Sweats Eyes: Denies: Visual changes - bilaterally, Diplopia ENT: Denies: Rhinorrhea, Sore throat Cardiovascular: Denies: Chest pain, Palpitations Respiratory: Denies: Dyspnea, Cough, Dyspnea on exertion Gastrointestinal: Denies: Abdominal pain, Nausea, Vomiting, Diarrhea, Melena, Hematochezia Genitourinary: Denies: Dysuria, Hematuria, Frequency Musculoskeletal: Denies: Back pain, Extremity Pain Skin: Denies: Rash, Wounds Neurological: Denies: Headache, Weakness, Numbness Physical Exam Vital Signs/Narrative: Vital Signs Temp Pulse Resp BP Pulse Ox 11/11/19 13:35 97.6 F L 78 18 134/73 H 97 Vital Signs/Narrative: Vital Signs Temp Pulse Resp BP Pulse Ox 11/11/19 13:35 97.6 F L 78 18 134/73 H 97 Inital Vital Signs reviewed: Yes General: Well nourished, Well developed, No Acute Distress Head: Normocephalic, Atraumatic Eyes: Perrl, EOMI ENT: Moist mucous membranes, No rhinorrhea Neck: Supple, Nontender Cardiovascular: Regular rate, Regular rhythm, No murmurs Respiratory: No distress, CTA bilaterally, Chest nontender Abdomen: Soft, Nontender, Nondistended, Normal bowel sounds Back: Nontender, Normal Inspection Extremities: Nontender, No edema Skin: Normal color, No rash Neurological: Alert, Oriented x3, Cranial nerves II-XII grossly intact, Normal Strength, Normal Sensation Psychological: Normal affect, Normal Mood Diagnostic/Tx/Re-eval - Medical Decision Making Patient was seen with Jadyn agree with history and physical as above, The patient has not had syncope she has a sensation that strikes her where she feels rubbery as if she is going to pass out but does not she is had no fever no cough no chest pain abdominal pain no numbness weakness or paresthesias, she has no exposures to coronavirus denies being , she has history of anemia she was seen recently in emergency department with exact same issue her work- up was unremarkable she is to follow-up with her outpatient providers next week she had another sense of feeling rubbery and came in for evaluation. Nothing triggers the sensations there is no premonitory symptoms she is resting the bed vital signs are normal and she has no complaints her physical exam head neck chest abdomen cardiac upper lower extremity neurologic exam entirely unremarkable Her EKG shows sinus rhythm 70 no acute injury pattern intervals normal Discussed all the above with her discussed we could repeat ED evaluation that she just had it was unremarkable she declined that she is resting comfortably bed at this time she is comfortable discharge home to follow-up with her outpatient providers for further management Home stable final impression paroxysms of feeling weak etiology unclear - Rhythm Strip Rhythm Strip: Sinus Rhythm Rate: 73 Ectopy: None - EKG Initia (more content not included)... Normal [facility] GC/Chlam Amp Genital/Rectal/ Oralon 06-19-2019 GC/Chlam Amp Genital/Rectal/Oral Test performed at [facility] Negative for Neisseria gonorrhoeae by amplification. Negative for Chlamydia trachomatis by amplification. Vagina Normal [facility] Comment on above: Performed By: #### G CCTP #### [place] [address] Pap,Cyto Gynon 06-19-2019 Pap,Cyto Stone Repairer Test performed at [place] [address] NAME: CATALINA MARVIN REQUESTING: CHARLES LAM MD SPECIMEN: TP CX REFLEX TO HPV ASCUS/STAR Relevant History: Post-: Y, Comment: FIRST PAP SPECIMEN ADEQUACY SATISFACTORY FOR EVALUATION. ENDOCERVICAL/TRANSFORMAT ION ZONE COMPONENTS PRESENT. PARTIALLY OBSCURING INFLAMMATION. GENERAL CATEGORIZATION NEGATIVE FOR INTRAEPITHELIAL LESION OR MALIGNANCY. INTERPRETATION/RESULT REACTIVE CELLULAR CHANGES ASSOCIATED WITH INFLAMMATION OR REPAIR. SHIFT IN [place] SUGGESTIVE OF BACTERIAL VAGINOSIS. Electronically signed: 06/27/2019 Screened by: ADELE RUSH(ASCP) Signed Out by: VASHTI PARK M.D. The Pap test serves as a screening tool for early detection of cervical cancer. The Pap test does not represent a final diagnostic test for cervical cancer. Furthermore, the Pap test was not designed to screen for other malignancies (endometrial, ovarian cancer, etc....). False negatives and false positives have occurred. If clinically indicated, further patient evaluation is recommended. Printed on: June 27, 2019 Page 1 of 1 Normal [facility] Comment on above: Performed By: #### C YTOP #### [place] [address] Rapid Bact.Vaginosison 06-19 Rapid Bact.Vaginosis see below Normal Negative [facility] Comment on above: Result Comment: Nega tive for the presence of bacterial vaginosis. Performed By: #### R APBV #### [place] [address] Rapid Trichomonas Agon 06-19 Rapid Trichomonas Ag see below Normal Negative [facility] Comment on above: Result Comment: No T richomonas antigen present or the antigen level is below detection limit of the assay (2500 organisms/mL). Performed By: #### R APTR #### [place] [address] Comp Metabolic Panelon 11-10 ALP [Catalytic activity/Vol] 79 U/L Normal 38-126 [facility] Comment on above: Performed By: #### H EMOG, CMP3, AMY3, LIPA4 #### [facility] [address] [place] [address] ALT [Catalytic activity/Vol] 23 U/L Normal 13-69 [facility] Comment on above: Performed By: #### H EMOG, CMP3, AMY3, LIPA4 #### [facility] [address] [place] [address] Anion gap [Moles/Vol] 8 Normal [facility] Comment on above: Performed By: #### H EMOG, CMP3, AMY3, LIPA4 #### [facility] [address] [place] [address] AST [Catalytic activity/Vol] 35 U/L Normal 15-46 [facility] Comment on above: Performed By: #### H EMOG, CMP3, AMY3, LIPA4 #### [facility] [address] [place] [address] Bilirubin [Mass/Vol] 0.5 mg/dL Normal 0.2-1.3 [facility] Comment on above: Performed By: #### H EMOG, CMP3, AMY3, LIPA4 #### [facility] [address] [place] [address] Calcium [Mass/Vol] 9.1 mg/dL Normal 8.4-10.4 [facility] Comment on above: Performed By: #### H EMOG, CMP3, AMY3, LIPA4 #### [facility] [address] [place] [address] CO2 [Moles/Vol] 21 mmol/L Low 22-30 [facility] Comment on above: Performed By: #### H EMOG, CMP3, AMY3, LIPA4 #### [facility] [address] [place] [address] Glucose [Mass/Vol] 77 mg/dL Normal 70-100 [facility] Comment on above: Performed By: #### H EMOG, CMP3, AMY3, LIPA4 #### [facility] [address] [place] [address] Protein [Mass/Vol] 6.4 g/dL Normal 6.3-8.2 [facility] Comment on above: Performed By: #### H EMOG, CMP3, AMY3, LIPA4 #### [facility] [address] [place] [address] Urea nitrogen [Mass/Vol] 7 mg/dL Normal 7-20 [facility] Comment on above: Performed By: #### H EMOG, CMP3, AMY3, LIPA4 #### [facility] [address] [place] [address] Creatinine [Mass/Vol] 0.42 mg/dL Low 0.52-1.25 [facility] Comment on above: Performed By: #### H EMORonny, CMP3, AMY3, LIPA4 #### [facility] [address] [place] [address] GFR/1.73 sq M predicted among blacks MDRD (S/P/Bld) [Vol rate/Area] mL/min/{1.73_m2} Normal >60 [facility] Comment on above: Performed By: #### H EMOG, CMP3, AMY3, LIPA4 #### [facility] [address] [place] [address] GFR/1.73 sq M predicted among non-blacks MDRD (S/P/Bld) [Vol rate/Area] mL/min/{1.73_m2} Normal >60 [facility] Comment on above: Result Comment: Sour ce- MDRD equation with creatinine calibration to IDMS(NKDEP) eGFR not recommended for drug dose adjustment Performed By: #### H EMOG, CMP3, AMY3, LIPA4 #### [facility] [address] [place] [address] Albumin [Mass/Vol] 3.5 g/dL Normal 3.5-5.0 [facility] Comment on above: Performed By: #### H EMOG, CMP3, AMY3, LIPA4 #### [facility] [address] [place] [address] Chloride [Moles/Vol] 105 mmol/L Normal 98-107 [facility] Comment on above: Performed By: #### H EMOG, CMP3, AMY3, LIPA4 #### [facility] [address] [place] [address] Potassium [Moles/Vol] 3.8 mmol/L Normal 3.5-5.1 [facility] Comment on above: Performed By: #### H EMOG, CMP3, AMY3, LIPA4 #### [facility] [address] [place] [address] Sodium [Moles/Vol] 135 mmol/L Normal 135-145 [facility] Comment on above: Performed By: #### H EMOG, CMP3, AMY3, LIPA4 #### [facility] [address] [place] [address] Complete Urinalysison 2018 Appearance (U) Turbid Normal [facility] Comment on above: Result Comment: Refe rence Range: Clear Performed By: #### H EMOG, CMP3, AMY3, LIPA4 #### [facility] [address] [place] [address] Bacteria LM.HPF (Urine sed) [#/Area] Few Normal [facility] Comment on above: Result Comment: Refe rence Range: Negative Performed By: #### H EMOG, CMP3, AMY3, LIPA4 #### [facility] [address] [place] [address] Bilirubin,Urine Negative Normal [facility] Comment on above: Result Comment: Refe rence Range: Negative Performed By: #### H EMOG, CMP3, AMY3, LIPA4 #### [facility] [address] [place] [address] Color (U) Yellow Normal [facility] Comment on above: Result Comment: Refe rence Range: Lt. Yellow Performed By: #### H EMOG, CMP3, AMY3, LIPA4 #### [facility] [address] [place] [address] Glucose Ql (U) Normal Normal [facility] Comment on above: Result Comment: Refe rence Range: Normal (<70) Performed By: #### H EMOG, CMP3, AMY3, LIPA4 #### [facility] [address] [place] [address] Ketone,Urine > 150 Normal [facility] Comment on above: Result Comment: Refe rence Range: Negative Performed By: #### H EMOG, CMP3, AMY3, LIPA4 #### [facility] [address] [place] [address] Leukocytes,Urine 500 [place]/uL Normal [facility] Comment on above: Result Comment: Refe rence Range: Negative Performed By: #### H EMOG, CMP3, AMY3, LIPA4 #### [facility] [address] [place] [address] Mucous Threads Few Normal [facility] Comment on above: Result Comment: Refe rence Range: Negative Performed By: #### H EMOG, CMP3, AMY3, LIPA4 #### [facility] [address] [place] [address] Nitrites,Urine Negative Normal [facility] Comment on above: Result Comment: Refe rence Range: Negative Performed By: #### H EMOG, CMP3, AMY3, LIPA4 #### [facility] [address] [place] [address] Occult Blood,Urine Negative Normal [facility] Comment on above: Result Comment: Refe rence Range: Negative Performed By: #### H EMOG, CMP3, AMY3, LIPA4 #### [facility] [address] [place] [address] pH (U) 6.0 Normal 5.0-8.0 [facility] Comment on above: Performed By: #### H EMOG, CMP3, AMY3, LIPA4 #### [facility] [address] [place] [address] Protein (U) [Mass/Vol] 30 mg/dL Normal [facility] Comment on above: Result Comment: Refe rence Range: Negative Performed By: #### H EMOG, CMP3, AMY3, LIPA4 #### [facility] [address] [place] [address] RBC LM.HPF (Urine sed) [#/Area] 3 - 5 Normal [facility] Comment on above: Result Comment: Refe rence Range: 0-2 Performed By: #### H EMOG, CMP3, AMY3, LIPA4 #### [facility] [address] [place] [address] Specific [place],Urine 1.029 Normal 1.005-1.030 [facility] Comment on above: Performed By: #### H EMOG, CMP3, AMY3, LIPA4 #### [facility] [address] [place] [address] Squamous Epithelial 3 - 5 Normal [facility] Comment on above: Result Comment: Refe rence Range: 3-5 Performed By: #### H EMOG, CMP3, AMY3, LIPA4 #### [facility] [address] [place] [address] Urobilinogen,Urine Normal Normal [facility] Comment on above: Result Comment: Refe rence Range: Normal (0-1) Performed By: #### H EMOG, CMP3, AMY3, LIPA4 #### [facility] [address] [place] [address] WBC LM.HPF (Urine sed) [#/Area] 26 - 50 Normal [facility] Comment on above: Result Comment: Refe rence Range: 0-5 Performed By: #### H EMOG, CMP3, AMY3, LIPA4 #### [facility] [address] [place] [address] Drugs of Abuseon 11-10-2018 Amphetamines, Ur Positive Normal [facility] Comment on above: Performed By: #### H EMOG, CMP3, AMY3, LIPA4 #### [facility] [address] [place] [address] Phencyclidine (PCP), Ur Negative Normal [facility] Comment on above: Result Comment: The expected value for all of the drugs listed above is Negative. The following drugs or drug groups have been screened for by Immunoassay at the following thresholds: Amphetamine class (1000 ng/mL), Barbiturates (200 ng/mL), Benzodiazepines (200 ng/mL), Cocaine (300 ng/mL), Methadone (300 ng/mL), Opiates (300 ng/mL), Oxycodone (100 ng/mL), and PCP (25 ng/mL). NOTE: These results are for medical treatment only. Analysis performed using non-forensic procedures. POSITIVE results are NOT confirmed by a more specific alternative method unless requested. If confirmation is needed, request confirmation under separate order. Performed By: #### H EMOG, CMP3, AMY3, LIPA4 #### [facility] [address] [place] [address] Opiates, Ur Negative Normal [facility] Comment on above: Performed By: #### H EMOG, CMP3, AMY3, LIPA4 #### [facility] [address] [place] [address] Cocaine, Ur Negative Normal [facility] Comment on above: Performed By: #### H EMOG, CMP3, AMY3, LIPA4 #### [facility] [address] [place] [address] Methadone, Ur Negative Normal [facility] Comment on above: Performed By: #### H EMOG, CMP3, AMY3, LIPA4 #### [facility] [address] [place] [address] Benzodiazepines, Ur Negative Normal [facility] Comment on above: Performed By: #### H EMOG, CMP3, AMY3, LIPA4 #### [facility] [address] [place] [address] Barbiturates, Ur Negative Normal [facility] Comment on above: Performed By: #### H EMOG, CMP3, AMY3, LIPA4 #### [facility] [address] [place] [address] Oxycodone/Oxymorphine ,Ur Negative Normal [facility] Comment on above: Performed By: #### H EMOG, CMP3, AMY3, LIPA4 #### [facility] [address] [place] [address] Hemogramon 11-10-2018 Erythrocyte distribution width (RBC) [Ratio] 13.1 % Normal 11.5-14.5 [facility] Comment on above: Performed By: #### H EMOG, CMP3 #### [facility] [address] [place] [address] Hematocrit (Bld) [Volume fraction] 34.1 % Low 35.0-47.0 [facility] Comment on above: Performed By: #### H EMOG, CMP3 #### [facility] [address] [place] [address] Hemoglobin (Bld) [Mass/Vol] 11.8 g/dL Normal 11.7-16.0 [facility] Comment on above: Performed By: #### H EMOG, CMP3 #### [facility] [address] [place] [address] MCH (RBC) [Entitic mass] 31.4 pg Normal 26.0-34.0 [facility] Comment on above: Performed By: #### H EMOG, CMP3 #### [facility] [address] [place] [address] MCHC (RBC) [Mass/Vol] 34.6 % Normal 32.0-36.0 [facility] Comment on above: Performed By: #### H EMOG, CMP3 #### [facility] [address] [place] [address] MCV (RBC) [Entitic vol] 90.8 fL Normal 79.0-98.0 [facility] Comment on above: Performed By: #### H EMOG, CMP3 #### [facility] [address] [place] [address] Platelet mean volume (Bld) [Entitic vol] 7.4 fL Normal 7.4-10.4 [facility] Comment on above: Performed By: #### H EMOG, CMP3 #### [facility] [address] [place] [address] Platelets (Bld) [#/Vol] 214 10*3/uL Normal 140-440 [facility] Comment on above: Performed By: #### H EMOG, CMP3 #### [facility] [address] [place] [address] RBC (Bld) [#/Vol] 3.75 10*6/uL Low 3.80-5.20 [facility] Comment on above: Performed By: #### H EMOG, CMP3 #### [facility] [address] [place] [address] WBC (Bld) [#/Vol] 9.7 10*3/uL Normal 3.6-10.7 [facility] Comment on above: Performed By: #### H EMOG, CMP3 #### [facility] [address] [place] [address] CULTURE URINEon 09-15-2018 CULTURE URINE CULTURE URINE --> Status: F Normal urogenital whitley present. Normal [facility] Comment on above: Performed By: #### U AMAC, UAMIC, DRGA4 #### [facility] [address] [place] [address] #### C/UR #### [facility] [address] [facility] [address] Add on test from HISon 09-14 Add on test from HIS Accepted Normal [facility] Comment on above: Result Comment: Spec imen available & acceptable for analysis. Performed By: #### A DDON #### [facility] [address] [place] [address] Amylaseon 09-14-2018 Amylase [Catalytic activity/Vol] 109 U/L Normal 30-130 [facility] Comment on above: Performed By: #### H EMOG, CMP3, AMY3, LIPA4 #### [facility] [address] [place] [address] Comp Metabolic Panelon 09-14 ALP [Catalytic activity/Vol] 56 U/L Normal 38-126 [facility] Comment on above: Performed By: #### H EMOG, CMP3, AMY3, LIPA4 #### [facility] [address] [place] [address] ALT [Catalytic activity/Vol] 28 U/L Normal 13-69 [facility] Comment on above: Performed By: #### H EMOG, CMP3, AMY3, LIPA4 #### [facility] [address] [place] [address] AST [Catalytic activity/Vol] 19 U/L Normal 15-46 [facility] Comment on above: Performed By: #### H EMOG, CMP3, AMY3, LIPA4 #### [facility] [address] [place] [address] Calcium [Mass/Vol] 9.4 mg/dL Normal 8.4-10.4 [facility] Comment on above: Performed By: #### H EMOG, CMP3, AMY3, LIPA4 #### [facility] [address] [place] [address] Glucose [Mass/Vol] 85 mg/dL Normal 70-100 [facility] Comment on above: Performed By: #### H EMOG, CMP3, AMY3, LIPA4 #### [facility] [address] [place] [address] Urea nitrogen [Mass/Vol] 6 mg/dL Low 7-20 [facility] Comment on above: Performed By: #### H EMOG, CMP3, AMY3, LIPA4 #### [facility] [address] [place] [address] Anion gap [Moles/Vol] 7 Normal [facility] Comment on above: Performed By: #### H EMOG, CMP3, AMY3, LIPA4 #### [facility] [address] [place] [address] Bilirubin [Mass/Vol] 0.3 mg/dL Normal 0.2-1.3 [facility] Comment on above: Performed By: #### H EMOG, CMP3, AMY3, LIPA4 #### [facility] [address] [place] [address] CO2 [Moles/Vol] 26 mmol/L Normal 22-30 [facility] Comment on above: Performed By: #### H EMOG, CMP3, AMY3, LIPA4 #### [facility] [address] [place] [address] Creatinine [Mass/Vol] 0.42 mg/dL Low 0.52-1.25 [facility] Comment on above: Performed By: #### H EMOG, CMP3, AMY3, LIPA4 #### [facility] [address] [place] [address] GFR/1.73 sq M predicted among blacks MDRD (S/P/Bld) [Vol rate/Area] mL/min/{1.73_m2} Normal >60 [facility] Comment on above: Performed By: #### H EMOG, CMP3, AMY3, LIPA4 #### [facility] [address] [place] [address] GFR/1.73 sq M predicted among non-blacks MDRD (S/P/Bld) [Vol rate/Area] mL/min/{1.73_m2} Normal >60 [facility] Comment on above: Result Comment: Sour ce- MDRD equation with creatinine calibration to IDMS(NKDEP) eGFR not recommended for drug dose adjustment Performed By: #### H EMOG, CMP3, AMY3, LIPA4 #### [facility] [address] [place] [address] Protein [Mass/Vol] 6.6 g/dL Normal 6.3-8.2 [facility] Comment on above: Performed By: #### H EMOG, CMP3, AMY3, LIPA4 #### [facility] [address] [place] [address] Chloride [Moles/Vol] 103 mmol/L Normal 98-107 [facility] Comment on above: Performed By: #### H EMOG, CMP3, AMY3, LIPA4 #### [facility] [address] [place] [address] Potassium [Moles/Vol] 4.1 mmol/L Normal 3.5-5.1 [facility] Comment on above: Performed By: #### H EMOG, CMP3, AMY3, LIPA4 #### [facility] [address] [place] [address] Sodium [Moles/Vol] 136 mmol/L Normal 135-145 [facility] Comment on above: Performed By: #### H EMOG, CMP3, AMY3, LIPA4 #### [facility] [address] [place] [address] Albumin [Mass/Vol] 3.7 g/dL Normal 3.5-5.0 [facility] Comment on above: Performed By: #### H EMOG, CMP3, AMY3, LIPA4 #### [facility] [address] [place] [address] Drugs of Abuseon 09-14-2018 Phencyclidine (PCP), Ur Negative Normal [facility] Comment on above: Result Comment: The expected value for all of the drugs listed above is Negative. The following drugs or drug groups have been screened for by Immunoassay at the following thresholds: Amphetamine class (1000 ng/mL), Barbiturates (200 ng/mL), Benzodiazepines (200 ng/mL), Cocaine (300 ng/mL), Methadone (300 ng/mL), Opiates (300 ng/mL), Oxycodone (100 ng/mL), and PCP (25 ng/mL). NOTE: These results are for medical treatment only. Analysis performed using non-forensic procedures. POSITIVE results are NOT confirmed by a more specific alternative method unless requested. If confirmation is needed, request confirmation under separate order. Performed By: #### U AMAC, UAMIC, DRGA4 #### [facility] [address] [place] [address] #### C/UR #### [facility] [address] [place] [facility] [place] [address] Methadone, Ur Negative Normal [facility] Comment on above: Performed By: #### U AMAC, UAMIC, DRGA4 #### [facility] [address] [place] [address] #### C/UR #### [facility] [address] [facility] [address] Opiates, Ur Negative Normal [facility] Comment on above: Performed By: #### U AMAC, UAMIC, DRGA4 #### [facility] [address] [place] [address] #### C/UR #### [facility] [address] [facility] [address] Cocaine, Ur Negative Normal [facility] Comment on above: Performed By: #### U AMAC, UAMIC, DRGA4 #### [facility] [address] [place] [address] #### C/UR #### [facility] [address] [facility] [place] [address] Amphetamines, Ur Negative Normal [facility] Comment on above: Performed By: #### U AMAC, UAMIC, DRGA4 #### [facility] [address] [place] [address] #### C/UR #### [facility] [address] [facility] [address] Barbiturates, Ur Negative Normal [facility] Comment on above: Performed By: #### U AMAC, UAMIC, DRGA4 #### [facility] [address] [place] [address] #### C/UR #### [facility] [address] [place], [place] Benzodiazepines, Ur Negative Normal [facility] Comment on above: Performed By: #### U AMAC, UAMIC, DRGA4 #### [facility] [address] [place] [address] #### C/UR #### [address] Oxycodone/Oxymorphine ,Ur Negative Normal [facility] Comment on above: Performed By: #### U AMAC, UAMIC, DRGA4 #### [place] [address] [place] [address] #### C/UR #### [address] Hemogramon 09-14-2018 Erythrocyte distribution width (RBC) [Ratio] 13.7 % Normal 11.5-14.5 [facility] Comment on above: Performed By: #### H EMOG, CMP3, AMY3, LIPA4 #### [facility] [address] [place] [address] Hematocrit (Bld) [Volume fraction] 38.9 % Normal 35.0-47.0 [facility] Comment on above: Performed By: #### H EMOG, CMP3, AMY3, LIPA4 #### [facility] [address] [place] [address] Hemoglobin (Bld) [Mass/Vol] 13.3 g/dL Normal 11.7-16.0 [facility] Comment on above: Performed By: #### H EMOG, CMP3, AMY3, LIPA4 #### [facility] [address] [place] [address] MCH (RBC) [Entitic mass] 31.8 pg Normal 26.0-34.0 [facility] Comment on above: Performed By: #### H EMOG, CMP3, AMY3, LIPA4 #### [facility] [address] [place] [address] MCHC (RBC) [Mass/Vol] 34.2 % Normal 32.0-36.0 [facility] Comment on above: Performed By: #### H EMOG, CMP3, AMY3, LIPA4 #### [facility] [address] [place] [address] MCV (RBC) [Entitic vol] 92.8 fL Normal 79.0-98.0 [facility] Comment on above: Performed By: #### H EMOG, CMP3, AMY3, LIPA4 #### [facility] [address] [place] [address] Platelet mean volume (Bld) [Entitic vol] 7.3 fL Low 7.4-10.4 [facility] Comment on above: Performed By: #### H EMOG, CMP3, AMY3, LIPA4 #### [facility] [address] [place] [address] Platelets (Bld) [#/Vol] 231 10*3/uL Normal 140-440 [facility] Comment on above: Performed By: #### H EMOG, CMP3, AMY3, LIPA4 #### [facility] [address] [place] [address] RBC (Bld) [#/Vol] 4.19 10*6/uL Normal 3.80-5.20 [facility] Comment on above: Performed By: #### H EMOG, CMP3, AMY3, LIPA4 #### [facility] [address] [place] [address] WBC (Bld) [#/Vol] 11.2 10*3/uL High 3.6-10.7 [facility] Comment on above: Performed By: #### H EMOG, CMP3, AMY3, LIPA4 #### [facility] [address] [place] [address] Lipaseon 09-14-2018 Lipase [Catalytic activity/Vol] 52 U/L Normal 23-300 [facility] Comment on above: Performed By: #### H EMOG, CMP3, AMY3, LIPA4 #### [facility] [address] [place] [address] Urinalysis,Macroon 9 Appearance (U) CLOUDY Normal Clear [facility] Comment on above: Performed By: #### U AMAC, UAMIC, DRGA4 #### [facility] [address] [place] [address] #### C/UR #### [place] [address] [address] [place], [place] Bilirubin,Ur Negative Normal Negative [facility] Comment on above: Performed By: #### U AMAC, UAMIC, DRGA4 #### [facility] [address] [place] [address] #### C/UR #### [place] [address] [address] [place], [place] Color (U) DK YELLOW Normal Lt. Yellow [facility] Comment on above: Performed By: #### U AMAC, UAMIC, DRGA4 #### [facility] [address] [place] [address] #### C/UR #### [place] [address] [address] [place], [place] Glucose Ql (U) Negative Normal Negative [facility] Comment on above: Performed By: #### U AMAC, UAMIC, DRGA4 #### [facility] [address] [place] [address] #### C/UR #### [place] [address] [place] Ketone,Urine Negative Normal Negative [facility] Comment on above: Performed By: #### U AMAC, UAMIC, DRGA4 #### [facility] [address] [place] [address] #### C/UR #### [address] Nitrite Ql (U) Negative Normal Negative [facility] Comment on above: Performed By: #### U AMAC, UAMIC, DRGA4 #### [facility] [address] [place] [address] #### C/UR #### [address] [place], [place] Occult Blood,Ur Negative Normal Negative [facility] Comment on above: Performed By: #### U AMAC, UAMIC, DRGA4 #### [place] [address] [place] [address] #### C/UR #### [address] pH (U) 7.0 Normal 5.0-8.0 [facility] Comment on above: Performed By: #### U AMAC, UAMIC, DRGA4 #### [address] [place] [address] #### C/UR #### [address] Protein (U) [Mass/Vol] 1 + mg/dL Normal Negative [facility] Comment on above: Performed By: #### U AMAC, UAMIC, DRGA4 #### [address] [place] [address] #### C/UR #### [address] Specific [place],Urine 1.028 Normal 1.005-1.030 [facility] Comment on above: Performed By: #### U AMAC, UAMIC, DRGA4 #### [address] [place] [address] #### C/UR #### [address] Urobilinogen Qn (U) 0.2 mg/dL Normal 0-1 [facility] Comment on above: Performed By: #### U AMAC, UAMIC, DRGA4 #### [address] [place] [address] #### C/UR #### [address] WBC (Bld) [#/Vol] 1 + Normal Negative [facility] Comment on above: Performed By: #### U AMAC, UAMIC, DRGA4 #### [facility] [address] [place] [address] #### C/UR #### [facility] [address] [place] [address] Urinalysis,Microscopicon Bacteria LM.HPF (Urine sed) [#/Area] Moderate (6-50) Normal Negative [facility] Comment on above: Performed By: #### U AMAC, UAMIC, DRGA4 #### [facility] [address] [place] [address] #### C/UR #### [facility] [place] [address] [address] [place], [place] Ca Oxylate Crystals Few (1-5) Normal Negative [facility] Comment on above: Performed By: #### U AMAC, UAMIC, DRGA4 #### [facility] [place] [address] [place] [address] #### C/UR #### [address] Cast, Hyaline 0 - 2 Normal 0-1 [facility] Comment on above: Performed By: #### U AMAC, UAMIC, DRGA4 #### [facility] [place] [address] [place] [address] #### C/UR #### [address] Epithelial cells LM.HPF (Urine sed) [#/Area] 11 - 25 Normal 3-5 [facility] Comment on above: Performed By: #### U AMAC, UAMIC, DRGA4 #### [facility] [place] [address] [place] [address] #### C/UR #### [facility] [address] Mucous Threads Loaded Normal Negative [facility] Comment on above: Performed By: #### U AMAC, UAMIC, DRGA4 #### [facility] [place] [address] [place] [address] #### C/UR #### [address] RBC LM.HPF (Urine sed) [#/Area] 0 - 2 Normal 0-2 [facility] Comment on above: Performed By: #### U AMAC, UAMIC, DRGA4 #### [facility] [address] [place] [address] #### C/UR #### [facility] [address] [place] [address] WBC LM.HPF (Urine sed) [#/Area] 11 - 25 Normal 0-5 [facility] Comment on above: Performed By: #### U AMAC, UAMIC, DRGA4 #### [facility] [address] [place] [address] #### C/UR #### [facility] [address] [place], [place] CT/NG PCR Panel on GeneXpert on 03-29-2018 CT/NG PCR Panel on GeneXpert Is this specimen being sent to an external lab?->NoCT/NG PCR Panel on GeneXpert: NEGATIVE-Chlamydia trachomatis DNA: NOT DETECTED. Source: URNFV Collected: 03/29/18 11:36 Site: Urine Received : 03/29/18 13:37CT/NG PCR Panel on GeneXpert FINAL 03/29/18 15:16 NEGATIVE-Chlamydia trachomatis DNA: NOT DETECTED. NEGATIVE-Neisseria gonorrhea DNA: NOT DETECTED. - Method: DNA detection by RT PCR on a GeneXpert analyzer. - NOTE: This Amplified DNA Assay should not be used for the evaluation of suspected sexual abuse or for other medico-legal indications. - Screening urine specimens for Chlamydia trachomatis and Neisseria gonorrhoeae using nucleic acid amplification is an accurate and sensitive method compared to standard techniques of detection of these pathogens. Because the pathogen is diluted in urine, it is somewhat less sensitive than a direct swab specimen evaluated by nucleic acid amplification techniques. Normal [facility] Comment on above: Performed By: #### C T/NG ####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 female. Her chiefcomplaint(s) include: Hair/Scalp Problem (Thinning of hair)Assessment1. Fatigue, unspecified type2. Irregular mensesPlanCatalina was seen today for hair/scalp problem.Diagnoses and all orders for this visit:Fatigue, unspecified type- POCT urine HCG- C.trachomatis/GC PCR Panel- Comprehensive metabolic panel (Lab Collect); Future- Complete Blood Count with Diff (Lab Collect); Future- Mandy-Cooper virus VCA, IgG (Lab Collect); Future- Mandy-Cooper virus VCA, IgM (Lab Collect); Future- T4, free (Lab Collect); Future- TSH (Lab Collect); FutureIrregular menses- POCT urine HCG- C.trachomatis/GC PCR PanelReturn for Well Visit and as needed.SubjectiveHPI Comments: PT reports she has felt tired for 1 month. She feels tired andsleeping more for 1 month. Notes her hair seems to be falling out for 1 month.No fever. She has gained some weight but eating more. No vomiting. No diarrhea.Denies feeling lisa cold than normal. Dry skin and dry hair. Last period was 3weeks ago. Last sexual activity was yesterday , no control used. Periodsare irregular No dizziness or LOC.She had cough about 1 week ago but has stoppedsince then. Pt is currently Living in house with boyfriend. Working at a [employer] DONTAE quintana number is [phone].Mom was trying to interject heropinions and Catalina had her go to waiting room and requested lab results begiven to her only.Primary Care Review of SystemsObjectiveVital Signs 03/29/18 1110BP: 110/66Pulse: 80Resp: 14Weight: 58.6 kgThere is no height or weight on file to calculate BMI.Physical ExamConstitutional: She appears well. She is active. No distress.HENT:Head: Atraumatic.Right Ear: Tympanic membrane normal.Left Ear: Tympanic membrane normal.Mouth/Throat: Mucous membranes are moist.Eyes: Conjunctivae are normal.Cardiovascular: Normal rate and regular rhythm.No murmur heard.Pulmonary/Chest: Breath sounds normal. There is normal air entry.Neurological: She is alert. Normal [facility] Vital Signs Date Time Vital Sign Value Performing Clinician Faci lity 12-31-2022 16:18-0400 Body height 165.1 cm Genesis Polk MD Work Phone: [facility] 12-31-2022 16:18-0400 Body mass index (BMI) [Ratio] 22.13 kg/m2 Genesis Polk MD Work Phone: [facility] 12-31-2022 16:18-0400 Body weight 60.33 kg Genesis Polk MD Work Phone: [facility] 12-31-2022 16:18-0400 Diastolic blood pressure 69 mm[Hg] Genesis Polk MD Work Phone: [facility] 12-31-2022 16:18-0400 Heart rate 79 /min Genesis Polk MD Work Phone: [facility] 12-31-2022 16:18-0400 Systolic blood pressure 102 mm[Hg] Genesis Polk MD Work Phone: [facility] 07-24-2022 11:34-0500 Body mass index (BMI) [Ratio] 23.46 kg/m2 Genesis Polk MD Work Phone: [facility] 07-24-2022 11:34-0500 Body weight 63.96 kg Genesis Polk MD Work Phone: [facility] 07-24-2022 11:34-0500 Diastolic blood pressure 99 mm[Hg] Genesis Polk MD Work Phone: [facility] 07-24-2022 11:34-0500 Heart rate 88 /min Genesis Polk MD Work Phone: [facility] 07-24-2022 11:34-0500 Systolic blood pressure 147 mm[Hg] Genesis Polk MD Work Phone: [facility] 07-23-2022 09:50-0500 Body temperature 98.4 [degF] Dolly Saldivar MD Work Phone: [facility] 07-23-2022 09:50-0500 Diastolic blood pressure 80 mm[Hg] Dolly Saldivar MD Work Phone: [facility] 07-23-2022 09:50-0500 Heart rate 89 /min Dolly Saldivar MD Work Phone: [facility] 07-23-2022 09:50-0500 Respiratory rate 14 /min Dolly Saldivar MD Work Phone: [facility] 07-23-2022 09:50-0500 SaO2% (BldA) [Mass fraction] 99 % Dolly Saldivar MD Work Phone: [facility] 07-23-2022 09:50-0500 Systolic blood pressure 128 mm[Hg] Dolly Saldivar MD Work Phone: [facility] 07-21-2022 21:17-0500 Body height 165.1 cm Dolly Saldivar MD Work Phone: [facility] 07-21-2022 19:36-0500 Diastolic Blood Pressure Non-Invasive 84 1 FLORI TRENT MD [facility] 07-21-2022 19:36-0500 Heart rate 97 /min FLORI TRENT MD [facility] 07-21-2022 19:36-0500 Respiratory rate 17 /min FLORI TRENT MD [facility] 07-21-2022 19:36-0500 Systolic Blood Pressure Non-Invasive 139 1 FLORI TRENT MD [facility] 07-21-2022 19:20-0500 Diastolic Blood Pressure Non-Invasive 86 1 FLORI TRENT MD [facility] 07-21-2022 19:20-0500 Heart rate 98 /min FLORI TRENT MD [facility] 07-21-2022 19:20-0500 Respiratory rate 12 /min FLORI TRENT MD [facility] 07-21-2022 19:20-0500 Systolic Blood Pressure Non-Invasive 129 1 FLORI TRENT MD [facility] 07-21-2022 19:14-0500 Diastolic Blood Pressure Non-Invasive 86 1 FLORI TRENT MD [facility] 07-21-2022 19:14-0500 Heart rate 102 /min FLORI TRENT MD [facility] 07-21-2022 19:14-0500 Respiratory rate 16 /min FLORI TRENT MD [facility] 07-21-2022 19:14-0500 Systolic Blood Pressure Non-Invasive 129 1 FLORI TRENT MD [facility] 07-21-2022 18:00-0500 Heart rate 93 /min FLORI TRENT MD [facility] 07-21-2022 17:55-0500 Heart rate 96 /min FLORI TRENT MD [facility] 07-21-2022 17:25-0500 Body temperature 98.24 [degF] FLORI TRENT MD [facility] 07-21-2022 17:25-0500 Body weight 68.1 kg FLORI TRENT MD [facility] 07-20-2022 16:06-0500 Body temperature 97.39 [degF] Kelvin Reyes DO Work Phone: [facility] 07-20-2022 16:06-0500 Diastolic blood pressure 91 mm[Hg] Kelvin Amy DO Work Phone: [facility] 07-20-2022 16:06-0500 Heart rate 78 /min Kelvin Amy DO Work Phone: [facility] 07-20-2022 16:06-0500 Respiratory rate 18 /min Kelvin Amy DO Work Phone: [facility] 07-20-2022 16:06-0500 SaO2% (BldA) [Mass fraction] 99 % Kelvin Amy DO Work Phone: [facility] 07-20-2022 16:06-0500 Systolic blood pressure 133 mm[Hg] Kelvin Amy DO Work Phone: [facility] 07-17-2022 21:44-0500 Body height 165.1 cm Kelvin Amy DO Work Phone: [facility] 07-17-2022 21:44-0500 Body mass index (BMI) [Ratio] 27.66 kg/m2 Kelvin Amy DO Work Phone: [facility] 07-17-2022 21:44-0500 Body weight 75.39 kg Kelvin Amy DO Work Phone: [facility] 07-16-2022 09:40-0500 Body mass index (BMI) [Ratio] 27.46 kg/m2 Dolly Saldivar MD Work Phone: [facility] 07-16-2022 09:40-0500 Body weight 74.84 kg Dolly Saldivar MD Work Phone: [facility] 07-16-2022 09:40-0500 Diastolic blood pressure 88 mm[Hg] Dolly Saldivar MD Work Phone: [facility] 07-16-2022 09:40-0500 Systolic blood pressure 133 mm[Hg] Dolly Saldivar MD Work Phone: [facility] 07-03-2022 19:01-0500 Diastolic blood pressure 71 mm[Hg] Catalina Munguia MD Work Phone: [facility] 07-03-2022 19:01-0500 Heart rate 93 /min Catalina Munguia MD Work Phone: [facility] 07-03-2022 19:01-0500 Systolic blood pressure 113 mm[Hg] Catalina Munguia MD Work Phone: [facility] 07-03-2022 17:06-0500 Body height 165.1 cm Catalina Munguia MD Work Phone: [facility] 07-03-2022 17:06-0500 Body mass index (BMI) [Ratio] 26.96 kg/m2 Catalina Munguia MD Work Phone: [facility] 07-03-2022 17:06-0500 Body temperature 98.2 [degF] Catalina Munguia MD Work Phone: [facility] 07-03-2022 17:06-0500 Body weight 73.48 kg Catalina Munguia MD Work Phone: [facility] 07-03-2022 17:06-0500 Respiratory rate 18 /min Catalina Munguia MD Work Phone: [facility] 07-03-2022 17:06-0500 SaO2% (BldA) [Mass fraction] 98 % Catalina Munguia MD Work Phone: [facility] 07-03-2022 11:22-0500 Body mass index (BMI) [Ratio] 26.96 kg/m2 Genesis Polk MD Work Phone: [facility] 07-03-2022 11:22-0500 Body weight 73.48 kg Genesis Polk MD Work Phone: [facility] 07-03-2022 11:22-0500 Diastolic blood pressure 77 mm[Hg] Genesis Polk MD Work Phone: [facility] 07-03-2022 11:22-0500 Systolic blood pressure 126 mm[Hg] Genesis Polk MD Work Phone: [facility] 06-29-2022 21:44-0500 Body temperature 98.01 [degF] Shaina Lucero MD Work Phone: [facility] 06-29-2022 21:44-0500 Diastolic blood pressure 66 mm[Hg] Shaina Lucero MD Work Phone: [facility] 06-29-2022 21:44-0500 Heart rate 79 /min Shaina Lucero MD Work Phone: [facility] 06-29-2022 21:44-0500 Respiratory rate 18 /min Shaina Lucero MD Work Phone: [facility] 06-29-2022 21:44-0500 Systolic blood pressure 114 mm[Hg] Shaina Lucero MD Work Phone: [facility] 06-24-2022 19:30-0500 Body temperature 98.01 [degF] Kay Alvarez DO Work Phone: [facility] 06-24-2022 19:30-0500 Diastolic blood pressure 83 mm[Hg] Kay Alvarez DO Work Phone: [facility] 06-24-2022 19:30-0500 Heart rate 96 /min Kay Alvarez DO Work Phone: [facility] 06-24-2022 19:30-0500 Respiratory rate 18 /min Kay Alvarez DO Work Phone: [facility] 06-24-2022 19:30-0500 Systolic blood pressure 122 mm[Hg] Kay Alvarez DO Work Phone: [facility] 06-24-2022 17:24-0500 Body height 165.1 cm Kay Alvarez DO Work Phone: [facility] 06-24-2022 17:24-0500 Body mass index (BMI) [Ratio] 25.96 kg/m2 Kay Alvarez DO Work Phone: [facility] 06-24-2022 17:24-0500 Body weight 70.76 kg Kay Alvarez DO Work Phone: [facility] 06-22-2022 15:00-0500 Heart rate 99 /min Shaina Lucero MD Work Phone: [facility] 06-22-2022 14:06-0500 Body temperature 98.4 [degF] Shaina Lucero MD Work Phone: [facility] 06-22-2022 14:06-0500 Diastolic blood pressure 73 mm[Hg] Shaina Lucero MD Work Phone: [facility] 06-22-2022 14:06-0500 Respiratory rate 18 /min Shaina Lucero MD Work Phone: [facility] 06-22-2022 14:06-0500 Systolic blood pressure 118 mm[Hg] Shaina Lucero MD Work Phone: [facility] 06-19-2022 17:20-0500 Body temperature 98.2 [degF] Catalina Munguia MD Work Phone: [facility] 06-19-2022 17:20-0500 Diastolic blood pressure 76 mm[Hg] Catalina Munguia MD Work Phone: [facility] 06-19-2022 17:20-0500 Heart rate 86 /min Catalina Munguia MD Work Phone: [facility] 06-19-2022 17:20-0500 Respiratory rate 18 /min Catailna Munguia MD Work Phone: [facility] 06-19-2022 17:20-0500 Systolic blood pressure 125 mm[Hg] Catalina Munguia MD Work Phone: [facility] 06-19-2022 16:11-0500 Body mass index (BMI) [Ratio] 25.96 kg/m2 Dolly Saldivar MD Work Phone: [facility] 06-19-2022 16:11-0500 Body weight 70.76 kg Dolly Saldivar MD Work Phone: [facility] 06-19-2022 16:11-0500 Diastolic blood pressure 77 mm[Hg] Dolly Saldivar MD Work Phone: [facility] 06-19-2022 16:11-0500 Systolic blood pressure 120 mm[Hg] Dolly Saldivar MD Work Phone: [facility] 06-05-2022 14:26-0500 Body mass index (BMI) [Ratio] 24.96 kg/m2 Genesis Polk MD Work Phone: [facility] 06-05-2022 14:26-0500 Body weight 68.04 kg Genesis Polk MD Work Phone: [facility] 06-05-2022 14:26-0500 Diastolic blood pressure 80 mm[Hg] Genesis Polk MD Work Phone: [facility] 06-05-2022 14:26-0500 Systolic blood pressure 128 mm[Hg] Genesis Polk MD Work Phone: [facility] 02-03-2022 16:58-0400 Diastolic blood pressure 72 mm[Hg] Tyrese Faye MD Work Phone: [facility] 02-03-2022 16:58-0400 Heart rate 110 /min Tyrese Faye MD Work Phone: [facility] 02-03-2022 16:58-0400 Respiratory rate 18 /min Tyrese Faye MD Work Phone: [facility] 02-03-2022 16:58-0400 SaO2% (BldA) [Mass fraction] 100 % Tyrese Faye MD Work Phone: [facility] 02-03-2022 16:58-0400 Systolic blood pressure 110 mm[Hg] Tyrese Faye MD Work Phone: [facility] 02-03-2022 14:35-0400 Body mass index (BMI) [Ratio] 21.47 kg/m2 Tyrese Faye MD Work Phone: [facility] 02-03-2022 14:35-0400 Body temperature 97.5 [degF] Tyrese Faye MD Work Phone: [facility] 02-03-2022 14:35-0400 Body weight 58.51 kg Tyrese Faye MD Work Phone: [facility] 12-09-2021 23:23-0400 Diastolic blood pressure 73 mm[Hg] DAMARIS REICHFIELD DO [facility] 12-09-2021 23:23-0400 Heart rate 81 /min DAMARIS REICHFIELD DO [facility] 12-09-2021 23:23-0400 Respiratory rate 18 /min DAMARIS REICHFIELD DO [facility] 12-09-2021 23:23-0400 Systolic blood pressure 115 mm[Hg] DAMARIS REICHFIELD DO [facility] 12-09-2021 19:45-0400 Body height 165.1 cm DAMARIS REICHFIELD DO [facility] 12-09-2021 19:45-0400 Body temperature 98.96 [degF] DAMARIS REICHFIELD DO [facility] 12-09-2021 19:45-0400 Body weight 59.1 kg DAMARIS REICHFIELD DO [facility] 12-09-2021 19:45-0400 Diastolic blood pressure 77 mm[Hg] DAMARIS REICHFIELD DO [facility] 12-09-2021 19:45-0400 Heart rate 90 /min DAMARIS REICHFIELD DO [facility] 12-09-2021 19:45-0400 Respiratory rate 18 /min DAMARIS REICHFIELD DO [facility] 12-09-2021 19:45-0400 Systolic blood pressure 112 mm[Hg] DAMARIS REICHFIELD DO [facility] 04-15-2021 04:44-0500 Diastolic blood pressure 81 mm[Hg] MARIA L NUNEZ MD [facility] 04-15-2021 04:44-0500 Heart rate 95 /min MARIA L NUNEZ MD [facility] 04-15-2021 04:44-0500 Respiratory rate 16 /min MARIA L NUNEZ MD [facility] 04-15-2021 04:44-0500 Systolic blood pressure 112 mm[Hg] MARIA L NUNEZ MD [facility] 04-15-2021 03:54-0500 Body height 165.1 cm MARIA L NUNEZ MD [facility] 04-15-2021 03:54-0500 Body temperature 98.06 [degF] MARIA L NUNEZ MD [facility] 04-15-2021 03:54-0500 Body weight 59.1 kg MARIA L NUNEZ MD [facility] 04-15-2021 03:54-0500 Diastolic blood pressure 78 mm[Hg] MARIA L NUNEZ MD [facility] 04-15-2021 03:54-0500 Heart rate 99 /min MARIA L NUNEZ MD [facility] 04-15-2021 03:54-0500 Respiratory rate 15 /min MARIA L NUNEZ MD [facility] 04-15-2021 03:54-0500 Systolic blood pressure 109 mm[Hg] MARIA L NUNEZ MD [facility] Encounters Encounter Date Encounter Type Care Provider Facility Start: 12-31-2022 End: 12-31-2022 ambulatory [facility] Start: 12-31-2022 End: 12-31-2022 Patient encounter procedure Genesis Polk MD Work Phone: [facility] Work Phone: Start: 12-31-2022 End: 12-31-2022 Periodic preventive med est patient 18-39 yrs Genesis Polk MD Work Phone: [facility] Comment on above: Women's annual routi ne gynecological examination (Primary Dx); depression Start: 07-24-2022 End: 07-24-2022 ambulatory [facility] Start: 07-24-2022 End: 07-24-2022 Office outpatient visit 15 minutes Genesis Polk MD Work Phone: [facility] Comment on above: hypertens ion (Primary Dx) Start: 07-21-2022 End: 07-23-2022 ambulatory TIANA ARENAS [facility] Start: 07-21-2022 End: 07-23-2022 Evaluation and management of inpatient Dolly Saldivar MD Work Phone: [facility] Start: 07-21-2022 End: 07-21-2022 Emergency department patient visit FLORI TRENT MD Facility:B Start: 07-21-2022 End: 07-21-2022 Emergency department patient visit FLORI TRENT MD [facility] Start: 07-21-2022 Telephone encounter Kelvin nice DO Work Phone: [facility] Comment on above: Other Start: 07-20-2022 Telephone encounter Shaina Lucero MD Work Phone: [facility] Start: 07-17-2022 End: 07-20-2022 Evaluation and management of inpatient [facility] Start: 07-17-2022 End: 07-20-2022 Evaluation and management of inpatient Kelvin Reyes DO Work Phone: [facility] Start: 07-16-2022 End: 07-16-2022 [facility] Comment on above: Encounter for superv ision of other normal , third trimester (Primary Dx); Dichorionic diamniotic twin in second trimester Start: 07-16-2022 Patient encounter procedure Tarsha Thompson RN [facility] Clinical Communication Start: 07-16-2022 End: 07-16-2022 Subsequent care visit Dolly Saldivar MD Work Phone: [facility] [place] [employer] Comment on above: Dichorionic diamniot ic twin in third trimester (Primary Dx) Start: 07-13-2022 Orders Only Genesis mustafa MD Work Phone: [facility] [place] [employer] Comment on above: Dichorionic diamniot ic twin in second trimester (Primary Dx) Start: 07-10-2022 End: 07-10-2022 ambulatory [facility] Start: 07-03-2022 End: 07-03-2022 ambulatory [facility] Start: 07-03-2022 End: 07-03-2022 Subsequent hospital visit by physician Catalina Munguia MD Work Phone: [facility] Start: 07-03-2022 End: 07-03-2022 ambulatory [facility] Start: 07-03-2022 End: 07-03-2022 Subsequent care visit Genesis Polk MD Work Phone: [facility] [place] [employer] Comment on above: Encounter for superv ision of other normal , third trimester (Primary Dx); Dichorionic diamniotic twin in second trimester Start: 07-01-2022 Telephone encounter Genesis Polk MD Work Phone: [facility] [employer] Comment on above: Cancelled Appointmen t (07/01/2022 US cancelled) Start: 06-29-2022 End: 06-30-2022 ambulatory [facility] Start: 06-29-2022 End: 06-29-2022 Subsequent hospital visit by physician Shaina Lucero MD Work Phone: [facility] Start: 06-25-2022 ambulatory [facility] Start: 06-25-2022 Patient encounter procedure [facility] Start: 06-24-2022 End: 06-24-2022 ambulatory [facility] Start: 06-24-2022 End: 06-24-2022 Subsequent hospital visit by physician Kay Alvarez DO Work Phone: [facility] Start: 06-24-2022 Telephone encounter Genesis Polk MD Work Phone: [facility] [employer] Comment on above: Updated fax # Start: 06-23-2022 ambulatory Fernanda Cox RN [facility] Cl inical Communication Start: 06-23-2022 Patient encounter procedure Fernanda Cox RN [facility] Clinical Communication Start: 06-23-2022 Telephone encounter Dolly bolden MD Work Phone: [facility] [employer] Comment on above: Results; Release of Information Start: 06-22-2022 End: 06-22-2022 [facility] Start: 06-22-2022 Patient encounter procedure Linsey Herzog [facility] Start: 06-22-2022 End: 06-22-2022 Subsequent hospital visit by physician Shaina Lucero MD Work Phone: [facility] Start: 06-19-2022 End: 06-19-2022 ambulatory [facility] Start: 06-19-2022 End: 06-19-2022 Subsequent hospital visit by physician Catalina Munguia MD Work Phone: [facility] Start: 06-19-2022 End: 06-19-2022 Subsequent care visit Dolly Saldivar MD Work Phone: [facility] [place] [employer] Comment on above: Anemia during pregna ncy (Primary Dx) Start: 06-05-2022 End: 06-05-[address] [facility] Start: 06-05-2022 End: 06-05-2022 Subsequent care visit Genesis Polk MD Work Phone: [facility] [place] [employer] Comment on above: Encounter for superv ision of other normal , third trimester (Primary Dx); Twin gestation, unable to determine number of placenta and number of amniotic sacs in second trimester Start: 05-27-2022 End: 05-27-2022 ambulatory [facility] Start: 05-20-2022 End: 05-20-2022 ambulatory [facility] Start: 05-06-2022 End: 05-06-2022 ambulatory [facility] Start: 04-20-2022 End: 04-20-2022 ambulatory [facility] Start: 04-19-2022 End: 04-20-2022 ambulatory UNKNOWN PROVIDER Facility:[facility] Start: 04-08-2022 End: 04-08-2022 ambulatory [facility] Start: 04-07-2022 End: 04-07-2022 ambulatory [facility] Start: 04-03-2022 End: 04-03-2022 ambulatory RAM[facility] Start: 02-03-2022 End: 02-03-2022 Emergency department patient visit Tyrese Faye MD Work Phone: [facility] Comment on above: Fall, initial encoun ter (Primary Dx); Abdominal pain in , unspecified trimester Start: 02-03-2022 Telephone encounter Dinah burnett APRN.CNP Work Phone[facility] Comment on above: Orders Start: 12-09-2021 End: 12-10-2021 Emergency department patient visit DAMARIS FLORES DO Facility:B Start: 12-09-2021 End: 12-09-2021 Emergency department patient visit DAMARIS [facility] DO [facility] Start: 04-15-2021 End: 04-15-2021 Emergency department patient visit MARIA L NUNEZ MD [facility] Start: 07-23-2018 End: 07-23-2018 Evaluation and management of inpatient PRITI [facility] Start: 03-29-2018 End: 03-29-2018 Patient encounter procedure ORACIO MARLEY [facility] Procedures Date Procedure Procedure Detail Performing Clinician Start: 07-24-2022 care Care GABII VIV POLK Start: 07-22-2022 Blood typing serolog ic rh (d) Dolly Saldivar MD Work Phone: Start: 07-22-2022 Comprehensive metabo lic panel Chinyere Winchester MD Work Phone: Start: 07-17-2022 Drug tst prsmv instr mnt chem analyzers pr date Ayse Sorensen MD Work Phone: Start: 07-17-2022 End: 07-17-2022 Comprehensive metabolic panel Frederic Rock DO Work Phone: Start: 07-17-2022 Blood count complete automated Christel Saldivar MD Work Phone: Start: 07-17-2022 Blood typing serologic abo Christel Saldivar MD Work Phone: Start: 06-24-2022 Assay of ferritin Gilberto Simon DO Work Phone: Start: 04-03-2022 Microscopic observat ion [Identifier] in Cervix by Cyto stain Genesis Polk MD Work Phone: Start: 02-03-2022 Urnls dip stick/tabl et rgnt auto w/o microscopy Domitila Suarez PA-C Work Phone: Start: 02-03-2022 Us uterus l imited 1/> fetuses Domitila Suarez PA-C Work Phone: Start: 09-06-2022 Gonadotropin chorion ic quantitative Domitila Suarez PA-C Work Phone: Start: 01-25-2020 Antibody screen Comment on above: Performed By: #### T &S #### [place] [id number] Start: 04-19-2016 Tooth and periodonti um operation FLORI TRENT MD Start: 05-31-2002 Tonsil and adenoid structure (body structure) FLORI TRENT MD None (qualifier value) MARIA L NUNEZ MD Plan of Treatment Date Care Activity Detail Author Start: 10-13-2047 Zoster Vaccines (1 of 2) Zoste r Vaccines (1 of 2) [facility] Start: 05-06-2032 DTaP/Tdap/Td Vaccine s (8 - Td or Tdap) DTaP/Tdap/Td Vaccines (8 - Td or Tdap) [facility] Start: 04-03-2025 Screening for malign ant neoplasm of cervix Pap Smear [facility] Start: 02-04-2023 End: 02-04-2023 Patient encounter procedure 02/04/2023 2:45 PM EDT Office Visit [facility] [address] [place] [address] Genesis Polk MD [address] [address] [place], [place] [address] [facility] Start: 01-29-2023 Influenza vaccination Influenza Vacc ine (#1) [facility] Start: 07-31-2022 End: 07-31-2022 Patient encounter procedure 07/31/2022 Routine Obstetrics and Gynecology Genesis Polk MD [address] [place], [place] [id number] [facility] [employer] Start: 07-31-2022 End: 07-31-2022 Professional / ancillary services management 07/31/2022 Ancillary Procedure Obstetrics and Gynecology [facility] [employer] Start: 07-24-2022 End: 07-24-2022 Patient encounter procedure [facility] [employer] Start: 07-24-2022 End: 07-24-2022 Professional / ancillary services management 07/24/2022 Ancillary Procedure Obstetrics and Gynecology [facility] [place] [employer] Start: 07-16-2022 End: 07-16-2023 US biophysical profile wo non stress testing [facility] Work Phone: Comment on above: Expected: 07/16/2022 , Expires: 07/13/2023 Expected: 07/16/2022 , Expires: 07/16/2023 Start: 07-16-2022 End: 07-16-2022 Patient encounter procedure 07/16/2022 Routine Obstetrics and Gynecology Dolly Saldivar MD [address] [facility] [facility] [address] [place] [address] [facility] [employer] Start: 07-16-2022 End: 07-16-2022 Professional / ancillary services management 07/16/2022 Ancillary Procedure Obstetrics and Gynecology [facility] [employer] Start: 07-10-2022 End: 07-03-2023 US biophysical profile wo non stress testing US biophysical profile wo non stress testing Imaging Routine Encounter for supervision of other normal , third trimester Dichorionic diamniotic twin in second trimester Expected: 07/10/2022, Expires: 07/03/2023 [facility] Comment on above: Expected: 07/10/2022 , Expires: 07/03/2023 Start: 07-10-2022 End: 07-10-2022 Patient encounter procedure 07/10/2022 Routine Obstetrics and Gynecology Genesis Polk MD [address] [facility] [address] [place] [address] [facility] [employer] Start: 07-10-2022 End: 07-10-2022 Professional / ancillary services management 07/10/2022 Ancillary Procedure [facility] Start: 07-03-2022 End: 07-03-2022 Patient encounter procedure 07/03/2022 Routine Obstetrics and Gynecology Genesis Polk MD [address] [facility] [address] [place] [address] [facility] [employer] Start: 07-03-2022 End: 07-03-2022 Professional / ancillary services management 07/03/2022 Ancillary Procedure Obstetrics and Gynecology [facility] [employer] Start: 06-25-2022 End: 06-25-2022 Patient encounter procedure 06/25/2022 Routine Obstetrics and Gynecology Aliza Rehman APRN - CNM [address] [facility] [address] [place] [address] [facility] [employer] Start: 06-25-2022 End: 06-25-2022 Professional / ancillary services management 06/25/2022 Ancillary Procedure [facility] Start: 06-19-2022 End: 06-19-2022 Patient encounter procedure 06/19/2022 Routine Obstetrics and Gynecology Dolly Saldivar MD [address] 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 Start: 06-19-2022 End: 06-19-2023 CBC W Auto Differential panel - Blood CBC auto differential Lab Routine Anemia during Expected: 06/19/2022 (Approximate), Expires: 06/19/2023 [facility] Work Phone: Comment on above: Expected: 06/19/2022 (Approximate), Expires: 06/19/2023 Start: 06-19-2022 PAP TESTING PAP TESTING [facility] Start: 02-03-2022 End: 04-05-2022 Choriogonadotropin.beta subunit [Units/volume] in Serum or Plasma HCG QUANTITATIVE Lab Routine Secondary amenorrhea Expected: 02/03/2022, Expires: 04/05/2022 [facility] Work Phone: Comment on above: Expected: 02/03/2022 , Expires: 04/05/2022 Start: 01-29-2022 Influenza vaccination [facility] Start: 11-14-2018 DTaP/Tdap/Td vaccine (7 - Td or Tdap) DTaP/Tdap/Td vaccine (7 - Td or Tdap) [facility] Start: 11-14-2018 Urine microalbumin profile DTAP,TDAP,TD (7 - Td or Tdap) [facility] Start: 2018 Screening for malign ant neoplasm of cervix Pap smear [facility] Start: 10-13-2015 Hepatitis C screening Hepatitis C sc reen [facility] Start: 2013 Screening for Chlamy antonette trachomatis Chlamydia screen [facility] Start: 2012 HIV screening HIV screen [facility] Start: 10-13-2011 PEDS TO ADULT TRANSI TION ANNUAL ASSESSMENT PEDS TO ADULT TRANSITION ANNUAL ASSESSMENT [facility] Start: 2009 Adult depression screening assessment DEPRESSION SCREENING [facility] Start: 2009 Depression Screen Depression Screen [facility] Start: 2009 Depresssion Monitoring Depresssion M onitoring [facility] Start: 2009 PEDS TO ADULT TRANSI TION INITIAL DISCUSSION PEDS TO ADULT TRANSITION INITIAL DISCUSSION [facility] Start: 10-13-2007 MENINGOCOCCAL B: Consider based on risk (1 of 2 - Risk Bexsero 2-dose series) MENINGOCOCCAL B: Consider based on risk (1 of 2 - Risk Bexsero 2-dose series) [facility] Start: 04-14-1998 COVID-19 VACCINE (#1) COVID-19 VACCI NE (#1) [facility] Start: 1997 Lipid panel Lipid Panel [facility] Cytology Cervical or vaginal smear or scraping study Pap Smear Pathology and Cytology Routine Women's annual routine gynecological examination 12/31/2022 5:17 PM EDT [facility] Pain Doctor Work Phone: Streptococcus agalac tiae DNA [Presence] in Unspecified specimen by SOPHIA with probe detection Group B Strep Screen PCR Microbiology Routine Encounter for supervision of other normal , third trimester Ordered: 07/03/2022 [facility] Pain Doctor Work Phone: Comment on above: Ordered: 07/03/2022 Immunizations Immunization Date Immunization Notes Care Provider Liborio collier 07-19-2022 diphtheria, tetanus toxoids and acellular pertussis vaccine, unspecified formulation Kelvin Reyes DO Work Phone: [facility] 07-19-2022 measles, mumps and rubella virus vaccine Kelvineleno Reyes DO Work Phone: [facility] 05-06-2022 influenza, seasonal, injectable, preservative free Genesis Polk MD Work Phone: [facility] 05-06-2022 tetanus toxoid, redu arlyn diphtheria toxoid, and acellular pertussis vaccine, adsorbed Genesis Polk MD Work Phone: [facility] 05-06-2022 influenza virus vacc ine, unspecified formulation Genesis Polk MD Work Phone: [facility] 05-16-2019 influenza, injectabl e, quadrivalent, contains preservative Dinah Klutts EMBOSSER OPERATOR.THERMOFORMING MACHINE OPERATOR Work Phone: [facility] 02-05-2016 meningococcal oligosaccharide (groups A, C, Y and W-135) diphtheria toxoid conjugate vaccine (MCV4O) Dinah Klutts EMBOSSER OPERATOR.THERMOFORMING MACHINE OPERATOR Work Phone: [facility] 02-05-2016 meningococcal polysaccharide (groups A, C, Y and W-135) diphtheria toxoid conjugate vaccine (MCV4P) Dinah Klutts EMBOSSER OPERATOR.THERMOFORMING MACHINE OPERATOR Work Phone: [facility] 03-16-2014 influenza virus vacc ine, whole virus Dinah Klutts EMBOSSER OPERATOR.THERMOFORMING MACHINE OPERATOR Work Phone: [facility] 04-24-2011 influenza, injectabl e, quadrivalent, preservative free Dinah Klutts EMBOSSER OPERATOR.THERMOFORMING MACHINE OPERATOR Work Phone: [facility] 04-24-2011 influenza, seasonal, injectable Dinah Klutts EMBOSSER OPERATOR.THERMOFORMING MACHINE OPERATOR Work Phone: [facility] 05-21-2009 human papilloma viru s vaccine, quadrivalent Dinah Klutts EMBOSSER OPERATOR.THERMOFORMING MACHINE OPERATOR Work Phone: [facility] 01-18-2009 human papilloma viru s vaccine, quadrivalent Dinah Klutts EMBOSSER OPERATOR.THERMOFORMING MACHINE OPERATOR Work Phone: [facility] 11-14-2008 human papilloma viru s vaccine, quadrivalent Dinah Klutts EMBOSSER OPERATOR.THERMOFORMING MACHINE OPERATOR Work Phone: [facility] 11-14-2008 meningococcal oligosaccharide (groups A, C, Y and W-135) diphtheria toxoid conjugate vaccine (MCV4O) Dinah Klutts EMBOSSER OPERATOR.THERMOFORMING MACHINE OPERATOR Work Phone: [facility] 11-14-2008 meningococcal polysaccharide (groups A, C, Y and W-135) diphtheria toxoid conjugate vaccine (MCV4P) Dinah Klutts EMBOSSER OPERATOR.THERMOFORMING MACHINE OPERATOR Work Phone: [facility] 11-14-2008 tetanus toxoid, redu arlyn diphtheria toxoid, and acellular pertussis vaccine, adsorbed Dinah Klutts EMBOSSER OPERATOR.THERMOFORMING MACHINE OPERATOR Work Phone: [facility] 02-14-2008 varicella virus vaccine Andrew ie Klutts EMBOSSER OPERATOR.THERMOFORMING MACHINE OPERATOR Work Phone: [facility] 03-10-2002 diphtheria, tetanus toxoids and acellular pertussis vaccine Dinah Klutts EMBOSSER OPERATOR.THERMOFORMING MACHINE OPERATOR Work Phone: [facility] 03-10-2002 measles, mumps and rubella virus vaccine Dinah Klutts EMBOSSER OPERATOR.THERMOFORMING MACHINE OPERATOR Work Phone: [facility] 03-10-2002 poliovirus vaccine, inactivated Dinah Klutts EMBOSSER OPERATOR.THERMOFORMING MACHINE OPERATOR Work Phone: [facility] 01-14-1999 diphtheria, tetanus toxoids and acellular pertussis vaccine Dinah Klutts EMBOSSER OPERATOR.THERMOFORMING MACHINE OPERATOR Work Phone: [facility] 01-14-1999 haemophilus influenz ae type b vaccine, PRP-T conjugate Dinah Klutts EMBOSSER OPERATOR.THERMOFORMING MACHINE OPERATOR Work Phone: [facility] 10-14-1998 measles, mumps and rubella virus vaccine Dinah Klutts EMBOSSER OPERATOR.THERMOFORMING MACHINE OPERATOR Work Phone: [facility] 10-14-1998 poliovirus vaccine, inactivated Dinah Klutts EMBOSSER OPERATOR.THERMOFORMING MACHINE OPERATOR Work Phone: [facility] 10-14-1998 varicella virus vaccine Andrew ie Klutts EMBOSSER OPERATOR.THERMOFORMING MACHINE OPERATOR Work Phone: [facility] 07-15-1998 hepatitis B vaccine, pediatric or pediatric/adolescent dosage Dinah Klutts EMBOSSER OPERATOR.THERMOFORMING MACHINE OPERATOR Work Phone: [facility] 04-15-1998 diphtheria, tetanus toxoids and acellular pertussis vaccine Dinah Klutts EMBOSSER OPERATOR.THERMOFORMING MACHINE OPERATOR Work Phone: [facility] 04-15-1998 haemophilus influenz ae type b vaccine, PRP-T conjugate Dinah Klutts EMBOSSER OPERATOR.THERMOFORMING MACHINE OPERATOR Work Phone: [facility] 02-12-1998 diphtheria, tetanus toxoids and acellular pertussis vaccine Dinah Klutts EMBOSSER OPERATOR.THERMOFORMING MACHINE OPERATOR Work Phone: [facility] 02-12-1998 haemophilus influenz ae type b vaccine, PRP-T conjugate Dinah Klutts EMBOSSER OPERATOR.THERMOFORMING MACHINE OPERATOR Work Phone: [facility] 02-12-1998 poliovirus vaccine, inactivated Dinah Klutts EMBOSSER OPERATOR.THERMOFORMING MACHINE OPERATOR Work Phone: [facility] 1997 diphtheria, tetanus toxoids and acellular pertussis vaccine Dinah Klutts EMBOSSER OPERATOR.THERMOFORMING MACHINE OPERATOR Work Phone: [facility] 1997 haemophilus influenz ae type b vaccine, PRP-T conjugate Dinah Klutts EMBOSSER OPERATOR.THERMOFORMING MACHINE OPERATOR Work Phone: [facility] 1997 poliovirus vaccine, inactivated Dinah Klutts EMBOSSER OPERATOR.THERMOFORMING MACHINE OPERATOR Work Phone: [facility] 1997 hepatitis B vaccine, pediatric or pediatric/adolescent dosage Dinah Klutts EMBOSSER OPERATOR.THERMOFORMING MACHINE OPERATOR Work Phone: [facility] 1997 hepatitis B vaccine, pediatric or pediatric/adolescent dosage Dinah Klutts EMBOSSER OPERATOR.THERMOFORMING MACHINE OPERATOR Work Phone: [facility] NEGATED: Highlighted row has not occurred!07-19-2022 RHO(D) immune globulin - IM Kelvin Reyes DO Work Phone: [facility] Comment on above: Deferred: Contraindi cation NEGATED: Highlighted row has not occurred!01-10-2019 diphtheria, tetanus toxoids and acellular pertussis vaccine Dinah Rossi APRN.THERMOFORMING MACHINE OPERATOR Work Phone: [facility] Payers Date Payer Category Payer Medicaid [id number] 2018 Unknown [id number] 2011 Unknown [id number] 1997 Unknown [id number] 1997 Unknown [id number] 1997 Unknown [id number] 1997 Unknown [id number] 1997 Unknown [id number] 1959 Unknown [id number] Unknown [id number] Social History Date Type Detail Facility Never smoker [facility] Sex Assigned At Female [facility] Tobacco smoking status No Smokin g Status Entered [facility] Start: 07-05-2017 End: 04-19-2022 Tobacco smoking status NHIS Never smoked tobacco [facility] Start: 07-05-2017 End: 09-05-2017 Tobacco use and exposure Smokeless tobacco non-user [facility] Start: 02-02-2020 End: 02-03-2022 Alcohol intake Current non-drinker of alcohol (finding) [facility] Start: 11-15-2019 End: 02-02-2020 History SDOH Alcohol Frequency 3 [facility] Start: 02-02-2020 End: 07-22-2022 History SDOH Alcohol Std Drinks 1 [facility] Start: 02-02-2020 End: 07-22-2022 History SDOH Alcohol Binge 2 [place] [facility] Start: 11-29-2017 History SDOH Alcohol Comment social [facility] Start: 11-15-2019 History SDOH Social Connections Phone 4 [facility] Start: 11-15-2019 History SDOH Social Connections Living 8 [facility] Start: 11-15-2019 History SDOH Physica l Activity DPW 6 [facility] Start: 11-15-2019 History SDOH Physica l Activity MPS 13 [facility] Start: 11-15-2019 Education 12 [facility] Start: 1997 Sex Assigned At Not on file [facility] Start: 01-24-2022 End: 12-31-2022 Exposure to SARS-CoV-2 (event) Not sure [facility] Work Phone: Start: 07-19-2022 End: 07-21-2022 Alcohol intake Ex-drinker (finding) [facility] Start: 07-17-2022 End: 07-21-2022 History of Social function [facility] Start: 07-17-2022 End: 07-21-2022 Humiliation, Afraid, Rape, and Kick questionnaire [HARK] [facility] Within the last year , have you been afraid of your partner or ex-partner? No [facility] In the past 12 month s, has lack of transportation kept you from medical appointments or from getting medications? No [facility] Start: 11-07-2021 [facility] Functional Status Date Assessment Result Facility 07-21-2022 Functional Status Ambulation in [facility] 12-09-2021 Functional Status [facility] Mental Status Date Assessment Result Facility 07-21-2022 Mental Status Orientation Oriented x 4 [facility] 12-09-2021 Mental Status Orientation Oriented x 4 [facility] 12-09-2021 Mental Status [facility] Clinical Notes 01-09-2019 to 12-31-2022 Radha Stephens MA - 12/31/2022 3:45 PM Zach Polk MD - 12/31/2022 3:45 PM Zach Polk MD - 07/24/2022 11:00 AM Shelley Kent MD - 07/23/2022 10:38 AM [facility] Note Date & Type Note Facility 12-31-2022 History of Present illness Narrative A chief green officer was offered to be present during her exam. The patient: declined Catalina Marvin 12/31/2022 27 y.o. Primary Care Physician: Mark Dowd MD Chief Complaint Patient presents with Annual Exam HPI : Catalina Marvin is a 27 y.o. female here for annual exam. Delivered twins earlier this year and they are doing well Pt thinks she has depression, feelings of sadness, tearfullness. No thoughts of harm to herself or others. Would like to restart medication. ____ Gynecologic History: Patient's last menstrual period was 11/29/2022 (approximate). OB History Para Term AB Living 3 2 2 1 3 SAB IAB Ectopic Multiple Live Births 1 1 3 # Outcome Date GA Lbr Greg/2nd Weight Sex Delivery Anes PTL Lv 3A Term 07/18/22 38w1d / 01:45 7 lb 3.3 oz (3.27 kg) F Vag-Spont EPI N MIRYAM Complications: Other, Pre-eclampsia in third trimester 3B Term 07/18/22 38w1d / 01:56 6 lb 10.9 oz (3.03 kg) F Vag-Spont EPI N [facility] Complications: Other, Pre-eclampsia in third trimester 2 Term 01/09/19 39w4d 22:58 / 00:45 7 lb 1.2 oz (3.21 kg) F Vag-Spont EPI N MIRYAM 1 IAB 2017 Past Medical History: Diagnosis Date Anemia Mental disorder depression Migraines Raynaud's disease Past Surgical History: Procedure Laterality Date ADENOIDECTOMY INDUCED N/A 2018 TONSILLECTOMY TONSILLECTOMY AND ADENOIDECTOMY (HISTORICAL) WISDOM TOOTH EXTRACTION Family History Problem Relation Name Age of Onset Lung cancer Paternal Grandfather Throat cancer Maternal Grandfather Lymphoma Maternal Grandfather Breast cancer Mother's Sister Social History Socioeconomic History Marital status: Single Spouse name: Not on file Number of children: Not on file Years of education: Not on file Highest education level: Not on file Occupational History Not on file Tobacco Use Smoking status: Never Smokeless tobacco: Never Vaping Use Vaping Use: Never used Substance and Sexual Activity Alcohol use: Not Currently Drug use: Yes Frequency: 3.0 times per week Types: Marijuana Sexual activity: Yes Partners: Male Other Topics Concern Not on file Social History Narrative Not on file Social Determinants of Health Financial Resource Strain: Not on file Food Insecurity: Not on file Transportation Needs: No Transportation Needs (07/17/2022) PRAPARE - Transportation Lack of Transportation (Medical): No Lack of Transportation (Non-Medical): No Physical Activity: Not on file Stress: Not on file Social Connections: Not on file Intimate Partner Violence: Not At Risk (07/21/2022) Humiliation, Afraid, Rape, and Kick questionnaire Fear of Current or Ex-Partner: No Emotionally Abused: No Physically Abused: No Sexually Abused: No Housing Stability: Low Risk (07/21/2022) Housing Stability Vital Sign Unable to Pay for Housing in the Last Year: No Number of Places Lived in the Last Year: 1 Unstable Housing in the Last Year: No MEDICATIONS: Current Outpatient Medications Medication Sig Dispense Refill Vit-Fe Fumarate-FA ( VITAMIN PO) Take by mouth. acetaminophen (Tylenol Extra Strength) 500 MG tablet Take 2 tablets (1,000 mg) by mouth every 8 hours as needed for mild pain (1-3). 60 tablet 1 Blood Pressure Monitoring (Comfort Touch BP Cuff/Medium) misc 1 each daily. Take blood pressure twice per day and record results 1 each 0 FLUoxetine (PROzac) 10 MG capsule Take 1 capsule (10 mg) by mouth daily. 30 capsule 1 ibuprofen 600 MG tablet Take 1 tablet (600 mg) by mouth every 6 hours as needed for mild pain (1-3). 60 tablet 1 NIFEdipine XL (Procardia XL) 30 MG 24 hr tablet Take 2 tablets (60 mg) by mouth daily. Do not crush, chew, or split. Do not start before July 21, 2022. 60 tablet 2 NIFEdipine XL (Procardia XL) 30 MG 24 hr tablet Take 1 tablet (30 mg) by mouth Nightly. Do not crush, chew, or split. 30 tablet 2 No current facility-administered medications for this visit. ALLERGIES: Allergies as of 12/31/2022 - Reviewed 12/31/2022 Allergen Reaction Noted Lactose intolerance (gi) 07/16/2022 Rondec-d [chlophedianol-pseudoephedrine] 03/23/2010 REVIEW OF SYSTEMS: Constitutional: Negative for activity change, appetite change, fatigue, fever and unexpected weight change. Respiratory: Negative for cough and shortness of breath. Cardiovascular: Negative for chest pain. Gastrointestinal: Negative for abdominal distention, abdominal pain, blood in stool, constipation, diarrhea, nausea and vomiting. Endocrine: Negative for cold intolerance and heat intolerance. Genitourinary: Negative for difficulty urinating, dysuria, frequency, genital sores, hematuria and urgency. Musculoskeletal: Negative for gait problem, myalgias, neck pain and neck stiffness. Skin: Negative for color change, rash and wound. Neurological: Negative for dizziness, tremors, seizures, syncope, speech difficulty, weakness, numbness and headaches. Psychiatric/Behavioral: + depression Negative for other behavioral problems, confusion, sleep disturbance and suicidal ideas. The patient is not nervous/anxious. PHYSICAL EXAM: Vitals: 12/31/22 1618 BP: 102/69 Pulse: 79 Weight: 133 lb (60.3 kg) Height: 5' 5 (1.651 m) Body mass index is 22.13 kg/m . GENERAL EXAM CONSTITUTIONAL: Well developed, well nourished, well groomed. no acute distress ABDOMEN:soft, non-tender, non-distended, no hepatospleenomegaly NEUROLOGICAL: no gross motor or sensory deficits noted. . LYMPH NODES: no lymphadenapathy axillary SKIN: intact, dry MUSCULOSKELETAL: normal gait, no cyanosis. PSYCHIATRIC Normal mood and affect, A&O x3. RELOCATION COUNSELOR: BREASTS: normal, no masses, tenderness or skin changes. EXTERNAL GENITALIA: normal female structures VAGINA: normal ruggae, no lesions CERVIX: no lesions, no cervical motion tenderness, normal appearance. UTERUS: normal mobility, nontender, normal size, shape and consistency. ADNEXA: normal, non tender no masses. URETHRA: normal. nontender BLADDER: non tender. PELVIC SUPPORT DEFECTS: Normal support of vagina, uterus, and bladder ANUS/PERINEUM: no hemorrhoids, masses or warts noted. ASSESSMENT/PLAN: Catalina was seen today for annual exam. Diagnoses and all orders for this visit: Women's annual routine gynecological examination (Primary) - Pap Smear depression Other orders - FLUoxetine (PROzac) 10 MG capsule; Take 1 capsule (10 mg) by mouth daily. Will start fluoxetine and follow up in 1 month Pt has taken this in the past and liked it Age appropriate screening recommendations were discussed. FOLLOW UP 1 month med check documented in this encounter [facility] 07-24-2022 History of Present illness Narrative Images from the original note were not included. Catalina Marvin 07/24/2022 26 y.o. Chief Complaint Patient presents with Care Delivered 07.18.22 BP check Primary Care Physician: Mark Dowd MD HPI: Catalina Marvin is a 26 y.o. female who presents for follow up today regarding: PP BP check. Pt was discharged yesterday from the hospital due to pre-eclampsia with severe features (). Past Medical History: Diagnosis Date Anemia Mental disorder depression Migraines Raynaud's disease Past Surgical History: Procedure Laterality Date ADENOIDECTOMY INDUCED N/A 2017 TONSILLECTOMY TONSILLECTOMY AND ADENOIDECTOMY (HISTORICAL) WISDOM TOOTH EXTRACTION Family History Problem Relation Name Age of Onset Lung cancer Paternal Grandfather Throat cancer Maternal Grandfather Lymphoma Maternal Grandfather Breast cancer Mother's Sister OB History Para Term AB Living 3 2 2 1 3 SAB IAB Ectopic Multiple Live Births 1 1 3 # Outcome Date GA Lbr Greg/2nd Weight Sex Delivery Anes PTL Lv 3A Term 07/18/22 38w1d / 01:45 7 lb 3.3 oz (3.27 kg) F Vag-Spont EPI N MIRYAM Complications: Other, Pre-eclampsia in third trimester 3B Term 07/18/22 38w1d / 01:56 6 lb 10.9 oz (3.03 kg) F Vag-Spont EPI N MIRYAM Complications: Other, Pre-eclampsia in third trimester 2 Term 01/09/19 39w4d 22:58 / 00:45 7 lb 1.2 oz (3.21 kg) F Vag-Spont EPI N MIRYAM 1 IAB 2018 MEDICATIONS: Current Outpatient Medications Medication Sig Dispense Refill acetaminophen (Tylenol Extra Strength) 500 MG tablet Take 2 tablets (1,000 mg) by mouth every 8 hours as needed for mild pain (1-3). 60 tablet 1 Blood Pressure Monitoring (Comfort Touch BP Cuff/Medium) misc 1 each daily. Take blood pressure twice per day and record results 1 each 0 ferrous sulfate (FerrouSul) 325 (65 Fe) MG tablet Take 1 tablet (325 mg) by mouth 2 times daily. 60 tablet 3 ibuprofen 600 MG tablet Take 1 tablet (600 mg) by mouth every 6 hours as needed for mild pain (1-3). 60 tablet 1 NIFEdipine XL (Procardia XL) 30 MG 24 hr tablet Take 2 tablets (60 mg) by mouth daily. Do not crush, chew, or split. Do not start before July 21, 2022. 60 tablet 2 NIFEdipine XL (Procardia XL) 30 MG 24 hr tablet Take 1 tablet (30 mg) by mouth Nightly. Do not crush, chew, or split. 30 tablet 2 Vit-Fe Fumarate-FA ( VITAMIN PO) Take by mouth. No current facility-administered medications for this visit. ALLERGIES: Allergies as of 07/24/2022 - Reviewed 07/24/2022 Allergen Reaction Noted Lactose intolerance (gi) 07/16/2022 Williams-d [chlophedianol-pseudoephedrine] 03/23/2010 PHYSICAL EXAMINATION: BP (!) 147/99 Pulse 88 Wt 141 lb (64 kg) LMP (LMP Unknown) Yes BMI 23.46 kg/m Physical Exam Deferred ASSESSMENT: Diagnosis Plan 1. hypertension PLAN: Catalina was seen today for care. Diagnoses and all orders for this visit: hypertension (Primary) Mild range Bp today. Asymptomatic. Advised patient to stay on the same medication dosage and will see her again in 1 week for repeat BP check since she is mild range today. On this date, 07/26/22 I have spent 20 minutes reviewing previous notes, test results and face to face with the patient discussing the diagnosis and importance of compliance with the treatment plan as well as documenting on the day of the visit. Genesis Polk MD documented in this encounter [facility] 07-23-2022 Note [place] Repairer Discharge Summar y Patient Name: Catalina Marvin Patient : 1995 Primary Care Physician: Mark Dowd MD Admit Date: 07/21/2022 Attending Provider: Dolly Saldivar MD Principal Diagnosis: PreEclampsia Other Diagnosis: Preeclampsia in period [O14.95] Patient Active Problem List Diagnosis Dichorionic diamniotic twin in second trimester care, antepartum Depression affecting Anemia during Dichorionic diamniotic twin gestation (spontaneous vaginal delivery) Pre-eclampsia in third trimester Preeclampsia in period Surgical Operations & Procedures: None Consultations: None Pertinent Findings & Procedures: Catalina Marvin is a 26 y.o. female , PPD #3 from admitted for pre-eclampsia. She presented to a transfer from [facility], received magnesium for seizure ppx. Did note require acute treatment while here. She resumed her home procardia 60/30 dosing. She was stable off magnesium, and Bps were normotensive, deemed stable for discharge. Hospital course normal, discharged home 07/23/22. Follow up in 3-5 days for BP check. Discharge instructions reviewed and questions answered. Course of patient: normal Discharge to: Home Recommendations on Discharge: Medications: Medication List CONTINUE taking these medications Comfort Touch BP Cuff/Medium misc 1 each daily. Take blood pressure twice per day and record results ASK your doctor about these medications acetaminophen 500 MG tablet Commonly known as: Tylenol Extra Strength Take 2 tablets (1,000 mg) by mouth every 8 hours as needed for mild pain (1-3). calcium carbonate 500 MG chewable tablet Commonly known as: Tums ferrous sulfate 325 (65 Fe) MG tablet Commonly known as: FerrouSul Take 1 tablet (325 mg) by mouth 2 times daily. ibuprofen 600 MG tablet Take 1 tablet (600 mg) by mouth every 6 hours as needed for mild pain (1-3). * NIFEdipine XL 30 MG 24 hr tablet Commonly known as: Procardia XL Take 1 tablet (30 mg) by mouth Nightly. Do not crush, chew, or split. * NIFEdipine XL 30 MG 24 hr tablet Commonly known as: Procardia XL Take 2 tablets (60 mg) by mouth daily. Do not crush, chew, or split. Do not start before July 21, 2022. omeprazole [address] capsule Commonly known as: PriLOSEC VITAMIN PO * This list has 2 medication(s) that are the same as other medications prescribed for you. Read the directions carefully, and ask your doctor or other care provider to review them with you. Activity: activity as tolerated Diet: regular diet Follow up: 07/27 for BP check Condition on discharge: good and stable Discharge Date: 07/23/22 Comments: Home care, Follow-up care, restrictions reviewed. Chinyere Winchester MD 07/21/2022, 10:33 PM [facility] 07-23-2022 Hospital course Narrative Images from the original note were not included. 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 Patient Name: Catalina Marvin Patient : 1995 Primary Care Physician: Mark Dowd MD Admit Date: 07/21/2022 Attending Provider: Dolly Saldivar MD Principal Diagnosis: PreEclampsia Other Diagnosis: Preeclampsia in period [O14.95] Patient Active Problem List Diagnosis Dichorionic diamniotic twin in second trimester care, antepartum Depression affecting Anemia during Dichorionic diamniotic twin gestation (spontaneous vaginal delivery) Pre-eclampsia in third trimester Preeclampsia in period Surgical Operations & Procedures: None Consultations: None Pertinent Findings & Procedures: Catalina Marvin is a 26 y.o. female , PPD #3 from admitted for pre-eclampsia. She presented to a transfer from an [facility], received magnesium for seizure ppx. Did note require acute treatment while here. She resumed her home procardia 60/30 dosing. She was stable off magnesium, and Bps were normotensive, deemed stable for discharge. Hospital course normal, discharged home 07/23/22. Follow up in 3-5 days for BP check. Discharge instructions reviewed and questions answered. Course of patient: normal Discharge to: Home Recommendations on Discharge: Medications: Medication List CONTINUE taking these medications Comfort Touch BP Cuff/Medium misc 1 each daily. Take blood pressure twice per day and record results ASK your doctor about these medications acetaminophen 500 MG tablet Commonly known as: Tylenol Extra Strength Take 2 tablets (1,000 mg) by mouth every 8 hours as needed for mild pain (1-3). calcium carbonate 500 MG chewable tablet Commonly known as: Tums ferrous sulfate 325 (65 Fe) MG tablet Commonly known as: FerrouSul Take 1 tablet (325 mg) by mouth 2 times daily. ibuprofen 600 MG tablet Take 1 tablet (600 mg) by mouth every 6 hours as needed for mild pain (1-3). * NIFEdipine XL 30 MG 24 hr tablet Commonly known as: Procardia XL Take 1 tablet (30 mg) by mouth Nightly. Do not crush, chew, or split. * NIFEdipine XL 30 MG 24 hr tablet Commonly known as: Procardia XL Take 2 tablets (60 mg) by mouth daily. Do not crush, chew, or split. Do not start before July 21, 2022. omeprazole [address] capsule Commonly known as: PriLOSEC VITAMIN PO * This list has 2 medication(s) that are the same as other medications prescribed for you. Read the directions carefully, and ask your doctor or other care provider to review them with you. Activity: activity as tolerated Diet: regular diet Follow up: 07/27 for BP check Condition on discharge: good and stable Discharge Date: 07/23/22 Comments: Home care, Follow-up care, restrictions reviewed. Chinyere Winchester MD 07/21/2022, 10:33 PM documented in this encounter [facility] 07-23-2022 Hospital Discharge instructions Shyam Kent MD - 07/23/2022 10:37 AM EST Images from the original note were not included. Hypertension Discharge Instructions 1. A blood pressure cuff will be ordered through the [facility] and delivered to your room prior to discharge. On the weekend, it will be sent to your preferred pharmacy. 2. Your nurse will teach you how to use the cuff. 3. In order to take your blood pressure properly, you should: - rest at least 10 minutes before - avoid caffeine, tobacco, or other stimulants at least 30 minutes before - sit with your arm rested at your side with the cuff at the level of your heart when taking a blood pressure 4. Take your blood pressure at least twice a day, in the morning and evening. Keep a record of your blood pressures to bring to the office. A log can be created for you on [employer]. Please ask your nurse how to access it if you are interested in using it. 5. Take any blood pressure medications as prescribed. 6. Call the office if your blood pressure is >150/>100 on two occasions. Go to OB triage if your blood pressure is >160/>110, or if other symptoms arise such as: - a headache not resolved with Tylenol or Motrin - vision changes (examples: blurred vision, spots, floaters) - chest pain or shortness of breath 7. The office will call you to schedule an appointment within 3 days of discharge for a blood pressure check. Call [phone] if the office has not called you within 24 hours. 8. If you are able to take your blood pressure at home, this appointment may be scheduled as a virtual visit. You will need to keep a record of you blood pressures for the doctor to review for this visit to be scheduled virtually. The following attachments cannot be sent through Care Everywhere.Preeclampsia Discharge Instructions (Serbian)Nifedipine, ADULT (Serbian)documented in this encounter [facility] 07-23-2022 History of Present illness Narrative Nutrition rescreen completed. Chart reviewed. Patient to be monitored and followed by the diet collection technician. Dietitian available upon request. Images from the original note were not included. VAGINAL DELIVERY POST DAY # 5 Catalina Marvin, 26 y.o. This patient was seen & examined today. Her was complicated by: Patient Active Problem List Diagnosis Dichorionic diamniotic twin in second trimester care, antepartum Depression affecting Anemia during Dichorionic diamniotic twin gestation (spontaneous vaginal delivery) Pre-eclampsia in third trimester Preeclampsia in period Today she is doing well without any chief complaint. Her lochia is light. She denies Headache, Chest Pain, Vision Changes, and Shortness of Breath. She is ambulating well. She is tolerating solids. Vital Signs: Vitals: 07/22/22 1626 07/22/22 1958 07/22/22 2354 07/23/22 0445 BP: 129/83 126/84 123/81 118/81 BP Location: Patient Position: Pulse: 86 88 102 96 Resp: 16 16 16 18 Temp: 36.5 C (97.7 F) 37.2 C (99 F) 36.7 C (98.1 F) 36.7 C (98.1 F) TempSrc: Temporal Temporal Temporal Temporal SpO2: 100% 99% 96% 99% Height: Physical Exam: GENERAL APPEARANCE: alert, well appearing, in no apparent distress ABDOMEN : benign non-tender, without masses or organomegaly palpable UTERUS : normal size, well involuted, firm, non-tender Lab: Lab Results Component Value Date HGB 8.5 (L) 07/22/2022 Lab Results Component Value Date HCT 26.2 (L) 07/22/2022 O Antibody Screen: No results found for: LABANTI No results found for: RUBELLAIGG LABOR DELIVERY ??? SCD's ONLY (labor through ambulation) SCD's PLUS Prophylactic Anticoagulation until discharge SCD's PLUS Prophylactic Anticoagulation for 6 weeks SCD's PLUS Therapeutic Anticoagulation for 6 weeks Vaginal Delivery [] BMI ? 40 kg/m2 Delivery All patients Vaginal Delivery [] BMI ? 40 kg/m2 AND [] Antepartum hospitalization ? 72 hours within the past month Delivery 1 Major Risk Factor: [] BMI ? 35 kg/m2 [] Low Risk Thrombophilia [] PPH+RBCs, IR, or operation [] Infection+Antibiotics [] Antepartum hospitalization ? 72 hours within the past month [] PMH: Sickle Cell, SLE, Cardiac Dz, Active IBD, Active Cancer, Nephrotic Syndrome OR 2 Minor Risk Factors: [] Multiple gestation [] Age > 40 [] PPH ? 1,000cc [] (+)FMH of VTE [] Smoker [] Preeclampsia [] BMI ? 40 kg/m2 AND [] Low Risk Thrombophilia OR ANY OF THE FOLLOWING: [] High Risk Thrombophilia without prior VTE [] Low Risk Thrombophilia with (+)FMH of VTE [] Any single prior VTE ANY OF THE FOLLOWING: [] Already on LMWH/UFH [] Multiple prior VTE [] High Risk Thrombophilia with prior VTE Low Risk Thrombophilia: FVL (heterozygous), Prothrombin (heterozygous), Protein C, Protein S High Risk Thrombophilia: FVL (homozygous), Prothrombin (homozygous), FVL+Prothrombin (heterozygous), Antithrombin III, APLS Assessment/Plan: Catalina Marvin is PPD # 5 s/p Care - Doing well, VSS - Female, Female; at home with patient's parents - both, breast and bottle feeding PreEwSF - Returned to [facility] on 07/21 for headache, vision changes and elevated blood pressures at home, had been seen at OSH prior to transfer to [facility] and was started on magnesium sulfate - Now s/p 24 hours of magnesium sulfate for seizure prophylaxis, ended last evening at 1800 - Asymptomatic this AM, headache has completely resolved - PreE labs notable for LFTs 2x ULN on admission and platelets low, discussed with attending yesterday and will defer repeating labs - At time of discharge on 07/20 was on Procardia XL 60/30 and that regimen has been continued this admission, BP has been normotensive - Continue to monitor Disposition: Anticipate discharge today per private attending's discretion. Based on my clinical assessment, this patient is safe for self discharge (does not need transport by wheelchair) if she so chooses. Provider's Name: MD MARYBETH Buckley DO 07/23/2022, 6:05 AM Images from the original note were not included. VAGINAL DELIVERY POST DAY # 4 Catalina Marvin, 26 y.o. This patient was seen & examined today. Her was complicated by: Patient Active Problem List Diagnosis Dichorionic diamniotic twin in second trimester care, antepartum Depression affecting Anemia during Dichorionic diamniotic twin gestation (spontaneous vaginal delivery) Pre-eclampsia in third trimester Preeclampsia in period Today she is doing well, states she feels better than when she got admitted last night. She does still endorse a headache, currently 5/10 but does improve with pain medications. Her lochia is light. She denies chest Pain, Vision Changes, and Shortness of Breath. She is ambulating well. She is tolerating solids. Vital Signs: Vitals: 07/21/22 2113 07/21/22 2117 07/22/22 0101 07/22/22 0457 BP: 128/84 118/82 124/89 Pulse: 88 72 84 Resp: 16 Temp: 36.6 C (97.9 F) TempSrc: Temporal SpO2: 98% Height: 1.651 m (5' 5) Physical Exam: GENERAL APPEARANCE: alert, well appearing, in no apparent distress ABDOMEN : benign non-tender, without masses or organomegaly palpable UTERUS : normal size, well involuted, firm, non-tender Lab: Lab Results Component Value Date HGB 8.5 (L) 07/22/2022 Lab Results Component Value Date HCT 26.2 (L) 07/22/2022 O Antibody Screen: No results found for: LABANTI No results found for: RUBELLAIGG LABOR DELIVERY ??? SCD's ONLY (labor through ambulation) SCD's PLUS Prophylactic Anticoagulation until discharge SCD's PLUS Prophylactic Anticoagulation for 6 weeks SCD's PLUS Therapeutic Anticoagulation for 6 weeks Vaginal Delivery [] BMI ? 40 kg/m2 Delivery All patients Vaginal Delivery [] BMI ? 40 kg/m2 AND [] Antepartum hospitalization ? 72 hours within the past month Delivery 1 Major Risk Factor: [] BMI ? 35 kg/m2 [] Low Risk Thrombophilia [] PPH+RBCs, IR, or operation [] Infection+Antibiotics [] Antepartum hospitalization ? 72 hours within the past month [] PMH: Sickle Cell, SLE, Cardiac Dz, Active IBD, Active Cancer, Nephrotic Syndrome OR 2 Minor Risk Factors: [] Multiple gestation [] Age > 40 [] PPH ? 1,000cc [] (+)FMH of VTE [] Smoker [] Preeclampsia [] BMI ? 40 kg/m2 AND [] Low Risk Thrombophilia OR ANY OF THE FOLLOWING: [] High Risk Thrombophilia without prior VTE [] Low Risk Thrombophilia with (+)FMH of VTE [] Any single prior VTE ANY OF THE FOLLOWING: [] Already on LMWH/UFH [] Multiple prior VTE [] High Risk Thrombophilia with prior VTE Low Risk Thrombophilia: FVL (heterozygous), Prothrombin (heterozygous), Protein C, Protein S High Risk Thrombophilia: FVL (homozygous), Prothrombin (homozygous), FVL+Prothrombin (heterozygous), Antithrombin III, APLS Assessment/Plan: Catalina Marvin is PPD # 4 s/p Care - Doing well, VSS - Female, Female; at home with patient's parents - both, breast and bottle feeding , will order breast pump PP PreEwSF - IOL for PreEwoSF on 07/17 and discharged home with Procardia XL 60/30 on 07/20 - Presented to OSH with MILLER, vision changes and elevated blood pressures, started on magnesium sulfate at 1800 and transferred to [facility] - Currently has magnesium sulfate running, plan for 24 hours until 1800 this evening - Currently has Ibuprofen and Reglan ordered PRN for headaches - PreE labs repeated this morning, AST and ALT elevated, ALT 2x ULN, AST 89 and not quite 2x ULN. Platelets low and 91. Otherwise labs wnl. - BP normotensive, continue Procardia XL 60/30 - Continue to monitor closely Disposition: Continue current care. Based on my clinical assessment, this patient is not safe for self discharge (does not need transport by wheelchair) if she so chooses. Provider's Name: MD MARYBETH Buckley, 07/22/2022, 6:38 AM Associated attestation - Genesis Polk MD - 07/22/2022 4:08 PM EST Hospital Care (Independent): I independently saw and evaluated the patient. I agree with the findings and plan of care as documented in the resident's note. Magnesium sulfate to be stopped today at 6 pm. If Bps remain well controlled overnight, consider discharge tomorrow AM. documented in this encounter [facility] 07-22-2022 Miscellaneous Notes Called to see pt by RN. Pt delivered twin girls on 07/18/22 and is in need of pump for home. Instructed pt to call [employer] to utilize her insurance benefits to obtain pump for home. Contact information for [employer] given to pt. Pt verbalizes understanding, denies questions. Follow up call to [facility] to check status of report made. Spoke to Cindy Neil who states referral screened out and will not be assigned worker at this time. Sw to follow if needs arise Problem: Pain - Adult Goal: Verbalizes/displays adequate comfort level or baseline comfort level Outcome: Progressing Problem: Safety - Adult Goal: Free from fall injury Outcome: Progressing Problem: Chronic Conditions and Co-morbidities Goal: Patient's chronic conditions and co-morbidity symptoms are monitored and maintained or improved Outcome: Progressing Referral made to [facility] hotline due to thc use during . Spoke to Linwood Rodrigues to make referral. . Informed hotline pt and twins have been dc. They will review and decide if opening and follow in community. SW to follow as needed documented in this encounter [facility] 07-22-2022 Obstetrics Note Called to see pt by RN. Pt delivered twin girls on 07/18/22 and is in need of pump for home. Instructed pt to call [employer] to utilize her insurance benefits to obtain pump for home. Contact information for [employer] given to pt. Pt verbalizes understanding, denies questions. [facility] 07-22-2022 Nurse Note Patient educated on use of breast pump and encouraged to pump 8-10x/day while in hospital. revenue cycle consultant notified pt requesting assistance with ordering new breast pump through insurance. revenue cycle consultant states she will be down this afternoon to see patient. [facility] 07-22-2022 Nurse Note Patient educated on use of breast pump and encouraged to pump 8-10x/day while in hospital. revenue cycle consultant notified pt requesting assistance with ordering new breast pump through insurance. revenue cycle consultant states she will be down this afternoon to see patient. Breast pump and supplies at bedside for patient. Patient currently resting, states will call out when ready to use pump. documented in this encounter [facility] 07-22-2022 Nurse Note Breast pump and supplies at bedside for patient. Patient currently resting, states will call out when ready to use pump. [facility] 07-22-2022 Note Formatting of this n ote might be different from the original. Follow up call to [facility] to check status of report made. Spoke to Cindy Neil who states referral screened out and will not be assigned worker at this time. Sw to follow if needs arise [employer] Phone: 07-22-2022 Note Formatting of this n ote might be different from the original. Follow up call to [facility] to check status of report made. Spoke to Cindy Jolynn who states referral screened out and will not be assigned worker at this time. Sw to follow if needs arise [employer] Phone: 07-22-2022 Note Attestation signed by Tiana Arenas MD at 07/22/2022 10:00 AM Hospital Care (Present): I was present with the resident during the history and exam. I discussed the case with the resident and agree with the findings and plan as documented in the resident's note. REVIEW ASSISTANT H&P Patient Name: Catalina Marvin Patient : 1995 Room/Bed: 2205/-2205 A Admission Date/Time: 07/21/2022 8:58 PM Primary Care Physician: Mark Dowd MD HPI: Catalina Marvin is a 26 y.o. female , s/p with Di/Di on 07/18 presents to [facility] as direct transport from [facility] with PreEwSF. She states she feels like she have had elevated BP at home, presented to [facility], she states she was not acutely treated there but she got started on Mag Sulfate at 6 pm. She endorse MILLER and some vision changes. No hx of Migraines or MILLER outside of . She otherwise denies RUQ pain/SOB. REVIEW OF SYSTEMS: A minimum of an eleven point review of systems was completed. Review of Systems Constitutional: Negative for chills and fever. Eyes: Positive for visual disturbance. Respiratory: Negative for shortness of breath. Cardiovascular: Negative for chest pain. Gastrointestinal: Negative for abdominal pain, nausea and vomiting. Genitourinary: Negative for dysuria, hematuria and vaginal bleeding. Neurological: Positive for headaches. Psychiatric/Behavioral: Negative for confusion. Social History: TOBACCO: reports that she has never smoked. She has never used smokeless tobacco. ETOH: reports that she does not currently use alcohol. GYNECOLOGICAL HISTORY: Contraception: no method OBSTETRICAL HISTORY: OB History Para Term AB Living 3 2 2 0 1 3 SAB IAB Ectopic Multiple Live Births 0 1 0 1 3 # Outcome Date GA Lbr Greg/2nd Weight Sex Delivery Anes PTL Lv 3A Term 07/18/22 38w1d / 01:45 7 lb 3.3 oz (3.27 kg) F Vag-Spont EPI N MIRYAM Complications: Other, Pre-eclampsia in third trimester Name: SALOME MARVIN Apgar1: 7 Apgar5: 9 3B Term 07/18/22 38w1d / 01:56 6 lb 10.9 oz (3.03 kg) F Vag-Spont EPI N MIRYAM Complications: Other, Pre-eclampsia in third trimester Name: LORNE MARVINGHADA Apgar1: 8 Apgar5: 9 2 Term 01/09/19 39w4d 22:58 / 00:45 7 lb 1.2 oz (3.21 kg) F Vag-Spont EPI N MIRYAM Name: Viktoria MARVIN Apgar1: 7 Apgar5: 9 1 IAB 2017 PAST MEDICAL HISTORY: Past Medical History: Diagnosis Date Anemia Mental disorder depression Migraines Raynaud's disease PAST SURGICAL HISTORY: Past Surgical History: Procedure Laterality Date ADENOIDECTOMY INDUCED N/A 2018 TONSILLECTOMY TONSILLECTOMY AND ADENOIDECTOMY (HISTORICAL) WISDOM TOOTH EXTRACTION ALLERGIES: Allergies Allergen Reactions Lactose Intolerance (Gi) Rondec-D [Chlophedianol-Pseudoephedrine] MEDICATIONS: No current facility-administered medications for this encounter. FAMILY HISTORY: family history includes Breast cancer in her mother's sister; Lung cancer in her paternal grandfather; Lymphoma in her maternal grandfather; Throat cancer in her maternal grandfather. SOCIAL HISTORY: Social Connections: Not on file Medications: Current Inpatient No current facility-administered medications for this encounter. VITALS: BP 128/84 Pulse 88 Temp 36.6 ?C (97.9 ?F) (Temporal) Resp 16 Ht 5' 5 (1.651 m) LMP (LMP Unknown) SpO2 98% BMI 27.66 kg/m? INPUT/OUTPUT: No intake/output data recorded. @[id number]@ PHYSICAL EXAM: Gen: NAD Resp: No increase work of breathing Abd: soft, non-tender Ext: +1 edema LAB RESULTS: @LABSECTIONRESULTS@ O Lab Results Component Value Date WBC 8.5 07/17/2022 HGB 11.0 (L) 07/17/2022 HCT 34.0 (L) 07/17/2022 MCV 82.3 07/17/2022 PLT 157 07/17/2022 No results found for: NA, K, CL, CO2, BUN, CREATININE, GLUCOSE, CALCIUM Urinalysis: No results found for: CLARITYU, COLORU, PHUR, SPECGRAV, PROTEINU, BLOODU, BACTERIA, LEUKOCYTESUR, YEAST, GLUCOSEU, BILIRUBINUR DIAGNOSTICS: ASSESSMENT & PLAN: Catalina Marvin is a 26 y.o. female , PPD #3 s/p SVE of Di/Di twins PP PreE - IOL for PreEwoSF on 07/17 - Discharged home on Procardia 60/30 - Pt presented to OSH with MILLER, VC and elevated BP - Started on Mag bolus with infusion at 2 g/hr at 1800 on 07/21 - On presentation to [facility], pt complained of MILLER, VC - BP low mild range to normotensive - Continue home procardia 60/30 - Repeat PreE labs in the AM - Plan to turn off mag after 24 hours. state - Light lochia - Bottle feeding - No BC - Female baby x2 with parents Plan discussed with Dr. Arenas, who is agreeable. Chinyere Winchester MD 07/21/2022, 10:18 PM [facility] 07-21-2022 History and physical note Images from the original note were not included. REVIEW ASSISTANT H&P Patient Name: Catalina Marvin Patient : 1995 [facility]: [facility] A Admission Date/Time: 07/21/2022 8:58 PM Primary Care Physician: Mark Dowd MD HPI: Catalina Marvin is a 26 y.o. female , s/p with Di/Di on 07/18 presents to [facility] as direct transport from [facility] with PreEwSF. She states she feels like she have had elevated BP at home, presented to [facility], she states she was not acutely treated there but she got started on Mag Sulfate at 6 pm. She endorse MILLER and some vision changes. No hx of Migraines or MILLER outside of . She otherwise denies RUQ pain/SOB. REVIEW OF SYSTEMS: A minimum of an eleven point review of systems was completed. Review of Systems Constitutional: Negative for chills and fever. Eyes: Positive for visual disturbance. Respiratory: Negative for shortness of breath. Cardiovascular: Negative for chest pain. Gastrointestinal: Negative for abdominal pain, nausea and vomiting. Genitourinary: Negative for dysuria, hematuria and vaginal bleeding. Neurological: Positive for headaches. Psychiatric/Behavioral: Negative for confusion. Social History: TOBACCO: reports that she has never smoked. She has never used smokeless tobacco. ETOH: reports that she does not currently use alcohol. GYNECOLOGICAL HISTORY: Contraception: no method OBSTETRICAL HISTORY: OB History Para Term AB Living 3 2 2 0 1 3 SAB IAB Ectopic Multiple Live Births 0 1 0 1 3 # Outcome Date GA Lbr Greg/2nd Weight Sex Delivery Anes PTL Lv 3A Term 07/18/22 38w1d / 01:45 7 lb 3.3 oz (3.27 kg) F Vag-Spont EPI N MIRYAM Complications: Other, Pre-eclampsia in third trimester Name: SALOME MARVIN Apgar1: 7 Apgar5: 9 3B Term 07/18/22 38w1d / 01:56 6 lb 10.9 oz (3.03 kg) F Vag-Spont EPI N MIRYAM Complications: Other, Pre-eclampsia in third trimester Name: YOLANDA MARVIN Apgar1: 8 Apgar5: 9 2 Term 01/09/19 39w4d 22:58 / 00:45 7 lb 1.2 oz (3.21 kg) F Vag-Spont EPI N MIRYAM Name: Viktoria MARVIN Apgar1: 7 Apgar5: 9 1 IAB 2018 PAST MEDICAL HISTORY: Past Medical History: Diagnosis Date Anemia Mental disorder depression Migraines Raynaud's disease PAST SURGICAL HISTORY: Past Surgical History: Procedure Laterality Date ADENOIDECTOMY INDUCED N/A 2018 TONSILLECTOMY TONSILLECTOMY AND ADENOIDECTOMY (HISTORICAL) WISDOM TOOTH EXTRACTION ALLERGIES: Allergies Allergen Reactions Lactose Intolerance (Gi) Rondec-D [Chlophedianol-Pseudoephedrine] MEDICATIONS: No current facility-administered medications for this encounter. FAMILY HISTORY: family history includes Breast cancer in her mother's sister; Lung cancer in her paternal grandfather; Lymphoma in her maternal grandfather; Throat cancer in her maternal grandfather. SOCIAL HISTORY: Social Connections: Not on file Medications: Current Inpatient No current facility-administered medications for this encounter. VITALS: BP 128/84 Pulse 88 Temp 36.6 C (97.9 F) (Temporal) Resp 16 Ht 5' 5 (1.651 m) LMP (LMP Unknown) SpO2 98% BMI 27.66 kg/m INPUT/OUTPUT: No intake/output data recorded. @[id number]@ PHYSICAL EXAM: Gen: NAD Resp: No increase work of breathing Abd: soft, non-tender Ext: +1 edema LAB RESULTS: @LABSECTIONRESULTS@ O Lab Results Component Value Date WBC 8.5 07/17/2022 HGB 11.0 (L) 07/17/2022 HCT 34.0 (L) 07/17/2022 MCV 82.3 07/17/2022 PLT 157 07/17/2022 No results found for: NA, K, CL, CO2, BUN, CREATININE, GLUCOSE, CALCIUM Urinalysis: No results found for: CLARITYU, COLORU, PHUR, SPECGRAV, PROTEINU, BLOODU, BACTERIA, LEUKOCYTESUR, YEAST, GLUCOSEU, BILIRUBINUR DIAGNOSTICS: ASSESSMENT & PLAN: Catalina Marvin is a 26 y.o. female , PPD #3 s/p SVE of Di/Di twins PP PreE - IOL for PreEwoSF on 07/17 - Discharged home on Procardia 60/30 - Pt presented to OSH with MILLER, VC and elevated BP - Started on Mag bolus with infusion at 2 g/hr at 1800 on 07/21 - On presentation to [facility], pt complained of MILLER, VC - BP low mild range to normotensive - Continue home procardia 60/30 - Repeat PreE labs in the AM - Plan to turn off mag after 24 hours. state - Light lochia - Bottle feeding - No BC - Female baby x2 with parents Plan discussed with Dr. Arenas, who is agreeable. Chinyere Winchester MD 07/21/2022, 10:18 PM Associated attestation - Tiana Arenas MD - 07/22/2022 10:00 AM EST Hospital Care (Present): I was present with the resident during the history and exam. I discussed the case with the resident and agree with the findings and plan as documented in the resident's note. [facility] 07-21-2022 History and physical note Images from the original note were not included. REVIEW ASSISTANT H&P Patient Name: Catalina Marvin Patient : 1995 Room[facility] A Admission Date/Time: 07/21/2022 8:58 PM Primary Care Physician: Mark Dowd MD HPI: Catalina Marvin is a 26 y.o. female , s/p with Di/Di on 07/18 presents to [facility] as direct transport from [facility] with PreEwSF. She states she feels like she have had elevated BP at home, presented to [facility], she states she was not acutely treated there but she got started on Mag Sulfate at 6 pm. She endorse MILLER and some vision changes. No hx of Migraines or MILLER outside of . She otherwise denies RUQ pain/SOB. REVIEW OF SYSTEMS: A minimum of an eleven point review of systems was completed. Review of Systems Constitutional: Negative for chills and fever. Eyes: Positive for visual disturbance. Respiratory: Negative for shortness of breath. Cardiovascular: Negative for chest pain. Gastrointestinal: Negative for abdominal pain, nausea and vomiting. Genitourinary: Negative for dysuria, hematuria and vaginal bleeding. Neurological: Positive for headaches. Psychiatric/Behavioral: Negative for confusion. Social History: TOBACCO: reports that she has never smoked. She has never used smokeless tobacco. ETOH: reports that she does not currently use alcohol. GYNECOLOGICAL HISTORY: Contraception: no method OBSTETRICAL HISTORY: OB History Para Term AB Living 3 2 2 0 1 3 SAB IAB Ectopic Multiple Live Births 0 1 0 1 3 # Outcome Date GA Lbr Greg/2nd Weight Sex Delivery Anes PTL Lv 3A Term 07/18/22 38w1d / 01:45 7 lb 3.3 oz (3.27 kg) F Vag-Spont EPI N MIRYAM Complications: Other, Pre-eclampsia in third trimester Name: SALOME MARVIN Apgar1: 7 Apgar5: 9 3B Term 07/18/22 38w1d / 01:56 6 lb 10.9 oz (3.03 kg) F Vag-Spont EPI N MIRYAM Complications: Other, Pre-eclampsia in third trimester Name: YOLANDA MARVIN Apgar1: 8 Apgar5: 9 2 Term 01/09/19 39w4d 22:58 / 00:45 7 lb 1.2 oz (3.21 kg) F Vag-Spont EPI N MIRYAM Name: Viktoria MARVIN Apgar1: 7 Apgar5: 9 1 IAB 2017 PAST MEDICAL HISTORY: Past Medical History: Diagnosis Date Anemia Mental disorder depression Migraines Raynaud's disease PAST SURGICAL HISTORY: Past Surgical History: Procedure Laterality Date ADENOIDECTOMY INDUCED N/A 2018 TONSILLECTOMY TONSILLECTOMY AND ADENOIDECTOMY (HISTORICAL) WISDOM TOOTH EXTRACTION ALLERGIES: Allergies Allergen Reactions Lactose Intolerance (Gi) Rondec-D [Chlophedianol-Pseudoephedrine] MEDICATIONS: No current facility-administered medications for this encounter. FAMILY HISTORY: family history includes Breast cancer in her mother's sister; Lung cancer in her paternal grandfather; Lymphoma in her maternal grandfather; Throat cancer in her maternal grandfather. SOCIAL HISTORY: Social Connections: Not on file Medications: Current Inpatient No current facility-administered medications for this encounter. VITALS: BP 128/84 Pulse 88 Temp 36.6 C (97.9 F) (Temporal) Resp 16 Ht 5' 5 (1.651 m) LMP (LMP Unknown) SpO2 98% BMI 27.66 kg/m INPUT/OUTPUT: No intake/output data recorded. @[id number]@ PHYSICAL EXAM: Gen: NAD Resp: No increase work of breathing Abd: soft, non-tender Ext: +1 edema LAB RESULTS: @LABSECTIONRESULTS@ O Lab Results Component Value Date WBC 8.5 07/17/2022 HGB 11.0 (L) 07/17/2022 HCT 34.0 (L) 07/17/2022 MCV 82.3 07/17/2022 PLT 157 07/17/2022 No results found for: NA, K, CL, CO2, BUN, CREATININE, GLUCOSE, CALCIUM Urinalysis: No results found for: CLARITYU, COLORU, PHUR, SPECGRAV, PROTEINU, BLOODU, BACTERIA, LEUKOCYTESUR, YEAST, GLUCOSEU, BILIRUBINUR DIAGNOSTICS: ASSESSMENT & PLAN: Catalina Marvin is a 26 y.o. female , PPD #3 s/p SVE of Di/Di twins PP PreE - IOL for PreEwoSF on 07/17 - Discharged home on Procardia 60/30 - Pt presented to OSH with MILLER, VC and elevated BP - Started on Mag bolus with infusion at 2 g/hr at 1800 on 07/21 - On presentation to [facility], pt complained of MILLER, VC - BP low mild range to normotensive - Continue home procardia 60/30 - Repeat PreE labs in the AM - Plan to turn off mag after 24 hours. state - Light lochia - Bottle feeding - No BC - Female baby x2 with parents Plan discussed with Dr. Arenas, who is agreeable. Chinyere Winchester MD 07/21/2022, 10:18 PM Associated attestation - Tiana Arenas MD - 07/22/2022 10:00 AM EST Hospital Care (Present): I was present with the resident during the history and exam. I discussed the case with the resident and agree with the findings and plan as documented in the resident's note. documented in this encounter [facility] 07-21-2022 Plan of care note Problem: Pain - Adult Goal: Verbalizes/displays adequate comfort level or baseline comfort level Outcome: Progressing Problem: Safety - Adult Goal: Free from fall injury Outcome: Progressing Problem: Chronic Conditions and Co-morbidities Goal: Patient's chronic conditions and co-morbidity symptoms are monitored and maintained or improved Outcome: Progressing [facility] 07-21-2022 Telephone encounter Note Name of caller requesting page: Dr. Flori Aquion Phone number of caller: [phone] Facility requesting page: [facility] Reason for page: Pt recently delivered and is in ER with abnormal labs and pre-eclampsia. Provider paged: Dolly Matta name of paged provider: [facility] Isak Page placed to #: Secure chat Time page was sent or provider contacted: 6:39 pm Method of contact: Secure chat Page content: Pt recently delivered and is now at [facility] with abnormal labs and pre-eclampsia. CB Dr. Flori Aquino [phone] [facility] 07-21-2022 Miscellaneous Notes Name of caller requesting page: Dr. Flori Aquino Phone number of caller: [phone] Facility requesting page: [facility] Reason for page: Pt recently delivered and is in ER with abnormal labs and pre-eclampsia. Provider paged: Dolly Matta name of paged provider: [facility] Garland Page placed to #: Secure chat Time page was sent or provider contacted: 6:39 pm Method of contact: Secure chat Page content: Pt recently delivered and is now at [facility] with abnormal labs and pre-eclampsia. CB Dr. Flori Aquino [phone] documented in this encounter [facility] 07-21-2022 Note Referral made to [facility] hotline due to thc use during . Spoke to Linwood Rodrigues to make referral. . Informed hotline pt and twins have been dc. They will review and decide if opening and follow in community. SW to follow as needed [facility] 07-21-2022 Note Formatting of this n ote might be different from the original. Referral made to [facility] hotline due to thc use during . Spoke to Linwood Rodrigues to make referral. . Informed hotline pt and twins have been dc. They will review and decide if opening and follow in community. SW to follow as needed [facility] 07-21-2022 Note Formatting of this n ote might be different from the original. Referral made to [facility] hotline due to thc use during . Spoke to Linwood Rodrigues to make referral. . Informed hotline pt and twins have been dc. They will review and decide if opening and follow in community. SW to follow as needed [facility] 07-20-2022 Note Pt watched discharge teaching video. Reviewed Guide to Caring for Yourself, discharge instructions and home medication list. Encouraged 1) use of the post- warning signs magnet 2) use of the green armband if pre-e hx, and 3) and after discharge to watch for these signs and symptoms: Fever - Oral temperature greater than 100.4 degrees Fahrenheit Foul-smelling vaginal discharge Headache unrelieved by pain medication Difficulty urinating Breasts reddened, hard, hot to the touch Nipple discharge which is foul-smelling or contains pus Increased pain at the site of the laceration Sudden increased vaginal bleeding, soaking a large pad front to back in 1 hour Passing any blood clots bigger than a large egg Difficulty breathing with or without chest pain New calf pain especially if only on one side Unrelieved feelings of inability to cope Patient states understanding and denies questions. [facility] 07-20-2022 Note Department of Obstet rics and Gynecology Delivery Discharge Summary Admission on 07/17/2022 8:58 PM Reason for admission: IOL-Di/Di twins Intrapartum Course: Her labor course was complicated as she met criteria for PreEwoSF during her labor course with mild range Bps and an elevated UPC. She was induced with Cytotec, FB, AROM, and Pitocin. She made change to complete and was taken to the OR for delivery. Code declan was called. 38w1d PC-01 Indications for Delivery: Was patient delivered between 37w0d - [id number]? Yes - di/di twins Surgical Operations & Procedures: Date of delivery: 07/18/22 Delivery Type: Vaginal, Spontaneous Delivery x2 Anesthesia: Epidural anesthesia Laceration(s): none Delivery Complications: none EBL: 300 cc Pertinent Findings & Procedures: Information for the patient's : Salome Marvin [[id number]] female 7 lb 3.3 oz (3.27 kg) Information for the patient's : Yolanda Marvin [[id number]] female 6 lb 10.9 oz (3.03 kg) Apgars: Information for the patient's : Salome Marvin [[id number]] Information for the patient's : Yolanda Marvin [[id number]] Course: Met criteria for PreEwSF following delivery. Started on procardia XL which was titrated to 60/30 : female x2 Blood Type/Rh: O Antibody Screen: No results found for: LABANTI Rubella: No results found for: RUBELLAIGG Contraception: no method : yes VTE Prophylaxis: Not Indicated Meds: Medication List START taking these medications acetaminophen 500 MG tablet Commonly known as: Tylenol Extra Strength Take 2 tablets (1,000 mg) by mouth every 8 hours as needed for mild pain (1-3). Comfort Touch BP Cuff/Medium misc 1 each daily. Take blood pressure twice per day and record results ibuprofen 600 MG tablet Take 1 tablet (600 mg) by mouth every 6 hours as needed for mild pain (1-3). * NIFEdipine XL 30 MG 24 hr tablet Commonly known as: Procardia XL Take 1 tablet (30 mg) by mouth Nightly. Do not crush, chew, or split. * NIFEdipine XL 30 MG 24 hr tablet Commonly known as: Procardia XL Take 2 tablets (60 mg) by mouth daily. Do not crush, chew, or split. Do not start before July 21, 2022. Start taking on: July 21, 2022 * This list has 2 medication(s) that are the same as other medications prescribed for you. Read the directions carefully, and ask your doctor or other care provider to review them with you. CONTINUE taking these medications calcium carbonate 500 MG chewable tablet Commonly known as: Tums ferrous sulfate 325 (65 Fe) MG tablet Commonly known as: FerrouSul Take 1 tablet (325 mg) by mouth 2 times daily. omeprazole [address] capsule Commonly known as: PriLOSEC VITAMIN PO STOP taking these medications aspirin 81 MG EC tablet Where to Get Your Medications These medications were sent to [facility]/pharmacy #[id number] - [place], [place] - [address] [place] [address] acetaminophen 500 MG tablet Comfort Touch BP Cuff/Medium misc ibuprofen 600 MG tablet NIFEdipine XL 30 MG 24 hr tablet NIFEdipine XL 30 MG 24 hr tablet Activity: Activity as tolerated Diet: Regular diet Follow up Care: Follow up appointment in 3 days for BP check Condition on discharge: Stable Discharge to: Home Discharge date: 07/20/22 Discharge Dx: s/p , di/di twins, term , PreEwSF Instructions to Patient:: Pelvic Rest (no intercourse, tampons, douching, etc) x 6 weeks Specific discharge instruction printed Dichorionic diamniotic twin gestation [O30.049] Patient Active Problem List Diagnosis Dichorionic diamniotic twin in second trimester care, antepartum Depression affecting Anemia during Dichorionic diamniotic twin gestation (spontaneous vaginal delivery) Pre-eclampsia in third trimester Comments: Home care, Follow-up care and control were reviewed. Signs and symptoms of mastitis and Post Depression were reviewed. The patient is to notify her physician if any of these occur. hSaina Lucero MD on 07/20/2022 at 4:07 PM [facility] 07-20-2022 History of Present illness Narrative Pt watched discharge teaching video. Reviewed Guide to Caring for Yourself, discharge instructions and home medication list. Encouraged 1) use of the post- warning signs magnet 2) use of the green armband if pre-e hx, and 3) and after discharge to watch for these signs and symptoms: Fever - Oral temperature greater than 100.4 degrees Fahrenheit Foul-smelling vaginal discharge Headache unrelieved by pain medication Difficulty urinating Breasts reddened, hard, hot to the touch Nipple discharge which is foul-smelling or contains pus Increased pain at the site of the laceration Sudden increased vaginal bleeding, soaking a large pad front to back in 1 hour Passing any blood clots bigger than a large egg Difficulty breathing with or without chest pain New calf pain especially if only on one side Unrelieved feelings of inability to cope Patient states understanding and denies questions. Images from the original note were not included. VAGINAL DELIVERY POST DAY # 2 Catalina Marvin, 26 y.o. This patient was seen & examined today. Her was complicated by: Patient Active Problem List Diagnosis Dichorionic diamniotic twin in second trimester care, antepartum Depression affecting Anemia during Dichorionic diamniotic twin gestation (spontaneous vaginal delivery) Pre-eclampsia in third trimester Today she is doing well without any chief complaint. Her lochia is light. She denies Headache, Chest Pain, Vision Changes, and Shortness of Breath. She is ambulating well. She is tolerating solids. Vital Signs: Vitals: 07/19/22 1607 07/19/22 1701 07/19/22202607/20/22 0027 BP: (!) 143/104 (!) 143/105 (!) 143/97 (!) 140/91 BP Location: Right arm Patient Position: Lying Pulse: 71 77 72 80 Resp: 18 16 16 Temp: 36.3 C (97.4 F) 36.6 C (97.9 F) 36.4 C (97.5 F) TempSrc: Temporal Temporal Temporal SpO2: 98% 97% 99% Weight: Height: Physical Exam: GENERAL APPEARANCE: alert, well appearing, in no apparent distress ABDOMEN : benign non-tender, without masses or organomegaly palpable UTERUS : normal size, well involuted, firm, non-tender Lab: Lab Results Component Value Date HGB 11.0 (L) 07/17/2022 Lab Results Component Value Date HCT 34.0 (L) 07/17/2022 O Antibody Screen: No results found for: LABANTI No results found for: RUBELLAIGG LABOR DELIVERY ??? SCD's ONLY (labor through ambulation) SCD's PLUS Prophylactic Anticoagulation until discharge SCD's PLUS Prophylactic Anticoagulation for 6 weeks SCD's PLUS Therapeutic Anticoagulation for 6 weeks Vaginal Delivery [] BMI ? 40 kg/m2 Delivery All patients Vaginal Delivery [] BMI ? 40 kg/m2 AND [] Antepartum hospitalization ? 72 hours within the past month Delivery 1 Major Risk Factor: [] BMI ? 35 kg/m2 [] Low Risk Thrombophilia [] PPH+RBCs, IR, or operation [] Infection+Antibiotics [] Antepartum hospitalization ? 72 hours within the past month [] PMH: Sickle Cell, SLE, Cardiac Dz, Active IBD, Active Cancer, Nephrotic Syndrome OR 2 Minor Risk Factors: [] Multiple gestation [] Age > 40 [] PPH ? 1,000cc [] (+)FMH of VTE [] Smoker [] Preeclampsia [] BMI ? 40 kg/m2 AND [] Low Risk Thrombophilia OR ANY OF THE FOLLOWING: [] High Risk Thrombophilia without prior VTE [] Low Risk Thrombophilia with (+)FMH of VTE [] Any single prior VTE ANY OF THE FOLLOWING: [] Already on LMWH/UFH [] Multiple prior VTE [] High Risk Thrombophilia with prior VTE Low Risk Thrombophilia: FVL (heterozygous), Prothrombin (heterozygous), Protein C, Protein S High Risk Thrombophilia: FVL (homozygous), Prothrombin (homozygous), FVL+Prothrombin (heterozygous), Antithrombin III, APLS Assessment/Plan: Catalina Marvin is PPD # 2 s/p of di/di twins Care - Doing well, VSS - Female x2 - both, breast and bottle feeding - Contraception: Per Private Attending - Encourage ambulation - VTE Prophylaxis: Not Indicated PreEwSF - s/p 24 hours magnesium sulfate for seizure prophylaxis, turned off last evening at 2100 - Asymptomatic this AM - Current oral anti-hypertensive regimen: Procardia XL 60 mg daily and 30 mg nightly - Has been persistently mild range, will monitor today Disposition: Anticipate discharge today per private attending's discretion. Based on my clinical assessment, this patient is safe for self discharge (does not need transport by wheelchair) if she so chooses. Provider's Name: DO MARYBETH Ling DO 07/20/2022, 6:06 AM Hospital Care (Independent): I independently saw and evaluated the patient. I agree with the findings and plan of care as documented in the resident's note. Patient seen and examined. Patient is doing well today. She reports that she had a mild headache which resolved with rest and Tylenol/ibuprofen. BP normotensive to low mild range today. Patient is interested in discharge home today. Okay to be discharged home on Procardia 60/30 and follow-up in the office in 2 to 3 days for blood pressure check. Denies any need for control today. Up to bathroom to void pt called for help for dizziness and warm. Assisted to bed per nurse tech and vital signs obtained. In to room to assess pt per request of tech. Pt states that she feels better now being back in bed. Blood pressure is in range of where she has been running today. Will report to assigned nurse. Nutrition rescreen completed. Patient assigned a level 1. Images from the original note were not included. VAGINAL DELIVERY POST DAY # 1 Catalina Ambrizter, 26 y.o. This patient was seen & examined today. Her was complicated by: Patient Active Problem List Diagnosis Dichorionic diamniotic twin in second trimester care, antepartum Depression affecting Anemia during Dichorionic diamniotic twin gestation (spontaneous vaginal delivery) Pre-eclampsia in third trimester Today she is doing well without any chief complaint. Her lochia is light. She denies Headache, Chest Pain, Vision Changes, and Shortness of Breath. She is ambulating well. She is tolerating solids. Vital Signs: Vitals: 07/19/22 0506 07/19/22 0823 07/19/22 0827 07/19/22 0929 BP: (!) 157/109 (!) 157/109 (!) 149/104 BP Location: Right arm Patient Position: Sitting Pulse: 70 83 73 Resp: 20 18 Temp: 36.2 C (97.1 F) 36.9 C (98.4 F) TempSrc: Temporal Temporal SpO2: 98% 98% 97% Weight: Height: Physical Exam: GENERAL APPEARANCE: alert, well appearing, in no apparent distress ABDOMEN : benign non-tender, without masses or organomegaly palpable EXTREMITIES: no redness or tenderness in the calves or thighs, no edema NEUROLOGIC: alert, oriented, normal speech, no focal findings or movement disorder noted UTERUS : normal size, well involuted, firm, non-tender Lab: Lab Results Component Value Date HGB 11.0 (L) 07/17/2022 Lab Results Component Value Date HCT 34.0 (L) 07/17/2022 O Antibody Screen: No results found for: LABANTI No results found for: RUBELLAIGG LABOR DELIVERY ??? SCD's ONLY (labor through ambulation) SCD's PLUS Prophylactic Anticoagulation until discharge SCD's PLUS Prophylactic Anticoagulation for 6 weeks SCD's PLUS Therapeutic Anticoagulation for 6 weeks Vaginal Delivery [] BMI ? 40 kg/m2 Delivery All patients Vaginal Delivery [] BMI ? 40 kg/m2 AND [] Antepartum hospitalization ? 72 hours within the past month Delivery 1 Major Risk Factor: [] BMI ? 35 kg/m2 [] Low Risk Thrombophilia [] PPH+RBCs, IR, or operation [] Infection+Antibiotics [] Antepartum hospitalization ? 72 hours within the past month [] PMH: Sickle Cell, SLE, Cardiac Dz, Active IBD, Active Cancer, Nephrotic Syndrome OR 2 Minor Risk Factors: [] Multiple gestation [] Age > 40 [] PPH ? 1,000cc [] (+)FMH of VTE [] Smoker [] Preeclampsia [] BMI ? 40 kg/m2 AND [] Low Risk Thrombophilia OR ANY OF THE FOLLOWING: [] High Risk Thrombophilia without prior VTE [] Low Risk Thrombophilia with (+)FMH of VTE [] Any single prior VTE ANY OF THE FOLLOWING: [] Already on LMWH/UFH [] Multiple prior VTE [] High Risk Thrombophilia with prior VTE Low Risk Thrombophilia: FVL (heterozygous), Prothrombin (heterozygous), Protein C, Protein S High Risk Thrombophilia: FVL (homozygous), Prothrombin (homozygous), FVL+Prothrombin (heterozygous), Antithrombin III, APLS Assessment/Plan: Catalina Marvin is PPD # 1 s/p of di/di twins Care - Doing well, VSS - female x2 - Contraception: Per Private Attending - Encourage ambulation - VTE Prophylaxis: Not Indicated PreEwSF -Mag remains on, will come off this evening around 2100 -BP high mild range this AM -Will titrate procardia XL from 30mg daily to 60mg daily -Asymptomatic this AM Disposition: Continue current care. Based on my clinical assessment, this patient is safe for self discharge (does not need transport by wheelchair) if she so chooses. Provider's Name: DO Los Ling MD 07/19/2022, 11:24 AM Associated attestation - Dolly Saldivar MD - 07/19/2022 11:41 AM EST Hospital Care (Independent): I independently saw and evaluated the patient. I agree with the findings and plan of care as documented in the resident's note. Images from the original note were not included. Labor Progress Note Date: 07/18/2022 Time: 12:12 AM Subjective: Catalina Marvin is a 26 y.o. female at 38w1d admitted for IOL-Di/Di twins Complications: Di/Di PreEwoSF SVE on admission: /-2 GBS: []Pos []Neg []Unknown Cat I/Cat I with moderate variability and spon accels. Safety huddle called due to difficult time getting 20min of both twins on the monitor. 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 FREDERIC ROCK DO 07/18/2022 12:17 AM Patient not feeling well, having headache at this time and nausea. BP elevated. PreE labs pending. No SOB, RUQ pain or vision changes. Will continue to monitor. FREDERIC ROCK DO 07/18/2022 12:25 AM Cat I/Cat I with moderate variability and spon accels. Pit @4cc/hr. Will continue to titrate per protocol. Jassi every 6min. CCM. FREDERIC ROCK DO 07/18/2022 1:24 AM Cat I with moderate variability and spon accels for Twin A. Cat I with moderate variability and spon accels for Twin B. Pit @8cc/hr. Plan for AROM after epidural placement. Patient met criteria for PreEwoSF 2/2 gHTN with elevated UPC. Patient had headache that resolved with Reglan. CCM. FREDERIC ROCK DO 07/18/2022 3:47 AM AROM of twin A at this time with scant clear fluid. FHT Cat II for twin A for isolated late decel, overall reassuring with moderate variability and accels. FHT Cat I for Twin B with moderate variability and spon accels. Pit at 8cc/hr. BP most recently normotensive. Patient comfortable with epidural. Continue to monitor. Sve per RN 6cm, stretching to a 7cm. Cat II for periods of minimal variability but overall moderate variability and spon accels throughout. Pit @14cc/hr. Jassi every 2-3min. CCM. FREDERIC ROCK DO 07/18/2022 6:41 AM Cx:780/-2 FHT: cat I/cat I [place]:q1-3min A/P: 1. IOL-Di/Di twins FHR cat I with moderate variability, spontaneous accels, normal baseline, no significant decels. Head feels asynclitic with more cervix on maternal right side. Patient repositioned. Pitocin at 14cc/hr. Continue to titrate per protocol. BP's normotensive to mild range. Continue to monitor. Cx: Defer FHT: Cat I/Cat I [place]: q 2 min A/P: 1. IOL-Di/Di Twins/PrEwoSF: Both babies cat I. Epidural redosed at 1100. Pt comfortable at this time. No feeling any more pressure. BP normotensive to mild range. Pit @ 16cc/hr, titrate per protocol. CCM. Cervix 7-880/-2 FHT cat I/cat I [place]: q1-3 min FHT cat I/cat I. Cervix feels swollen on maternal right side. Will order benadryl. Pit at 16cc/hr, titrate per protocol. Discussed hip release with RN, will continue position changes. Cervix 8/90/-1, FHT cat I/cat I, jassi q 2-3 min. Cervix feels less swollen, significantly different from prior exam. Pit at 16 ml/hr, titrate per protocol. Pt repositioned. CCM. Cx: Defer FHT: Cat I/Cat I [place]: q 5 min A/P: 1. IOL-Di/Di Twins, PreEwoSF: Both babies Cat I. Pt resting at this time. Will plan for recheck at next position change. Some coupling of contractions noted. Pitocin @ 18 ml/hr, titrate per protocol. BP mild range. CCM. Cx:10/100/+1 FHP: OA FHT: Cat I/Cat I [place]:q 2-3 min A/P: 1. IOL-Di/Di Twins, PreEwoSF: Both babies cat I. Pt is complete and 0->+1 station. Very comfortable, not feeling the urge to push. States that she only pushed for 20 minutes with her first baby. A has just started and given that she has to deliver in the OR, will let her labor down for a bit prior to taking her back for delivery as long as both babies remain Cat I and she is comfortable. Pt agreeable with this plan. Pit @ 18cc/hr. BP mild range. CCM. Pt taken to the back and started pushing. Pt with two SVDs, please see delivery summary for details. documented in this encounter [facility] 07-20-2022 Note Formatting of this n ote might be different from the original. Sw consult due to hx of thc. Met with mother of baby/mob at bedside. Mob delivered twins (Frederic and Rohini Mir). Father of baby Gino Mir 12[birth year]01-94 in chair holding one baby. Fob appeared very supportive. Mob also attentive to babies. Mob and edgar live together with a roommate, as well as mob's other dtr Viktoria Marvin 01-09-19. Edgar has another dtr Sachin alberto 07-26-05 who he adopted and has shared custody of with child's grandmother. Mob states she is prepared for twins with carseats, crib, basinetts, clothing, diapers etc and is signed up for WIC. Educated on safe sleep practices. Mob reports some pp depression after of first child, however, she did not feel the need to seek tx. States mood currently stable. Discussed thc use. She admits to smoking almost daily to help with nausea and sleep. States the thc is kept in a separate room upstairs and locked up. States when she uses it is away from dtr either in that room or outside on [facility]. States plans to cut down now that she has delivered as her heartburn will be better. She denied use of any other drugs. States last use was 07-16-22.Tox on 07-17-22 was negative for all substances including thc. Sw discussed negative effects of continued use and also discussed that a referral will be made to [facility]. Parents expressed understanding and states they were involved very briefly a couple of years ago due to edgar's daughter visiting from [place] and had not yet enrolled in school. OB resources discussed. [facility] closed today due to Presidents day, SW will make referral tomorrow and they can follow in community. [place] [facility] [employer] Work Phone: 07-20-2022 Note Formatting of this n ote might be different from the original. Sw consult due to hx of thc. Met with mother of baby/mob at bedside. Mob delivered twins (Frederic and Rohini Mir). Father of baby Gino Mir 12[birth year]01-94 in chair holding one baby. Fob appeared very supportive. Mob also attentive to babies. Mob and fob live together with a roommate, as well as mob's other dtr Viktoria Marvin 01-09-19. Edgar has another dtr Sachin alberto 07-26-05 who he adopted and has shared custody of with child's grandmother. Mob states she is prepared for twins with carseats, crib, basinetts, clothing, diapers etc and is signed up for WIC. Educated on safe sleep practices. Mob reports some pp depression after of first child, however, she did not feel the need to seek tx. States mood currently stable. Discussed thc use. She admits to smoking almost daily to help with nausea and sleep. States the thc is kept in a separate room upstairs and locked up. States when she uses it is away from dtr either in that room or outside on [facility]. States plans to cut down now that she has delivered as her heartburn will be better. She denied use of any other drugs. States last use was 07-16-22.Tox on 07-17-22 was negative for all substances including thc. Sw discussed negative effects of continued use and also discussed that a referral will be made to [facility]. Parents expressed understanding and states they were involved very briefly a couple of years ago due to edgar's daughter visiting from [place] and had not yet enrolled in school. OB resources discussed. [facility] closed today due to Presidents day, SW will make referral tomorrow and they can follow in community. [place] [facility] Work Phone: 07-20-2022 Miscellaneous Notes Sw consult due to hx of thc. Met with mother of baby/mob at bedside. Mob delivered twins (Frederic and Rohini Mir). Father of baby Gino Mir 12[birth year]01-94 in chair holding one baby. Fob appeared very supportive. Mob also attentive to babies. Mob and fob live together with a roommate, as well as mob's other dtr Viktoria Marvin 01-09-19. Fokaitlyn has another dtr Sachin alberto 07-26-05 who he adopted and has shared custody of with child's grandmother. Mob states she is prepared for twins with carseats, crib, basinetts, clothing, diapers etc and is signed up for WIC. Educated on safe sleep practices. Mob reports some pp depression after of first child, however, she did not feel the need to seek tx. States mood currently stable. Discussed thc use. She admits to smoking almost daily to help with nausea and sleep. States the thc is kept in a separate room upstairs and locked up. States when she uses it is away from dtr either in that room or outside on [facility]. States plans to cut down now that she has delivered as her heartburn will be better. She denied use of any other drugs. States last use was 07-16-22.Tox on 07-17-22 was negative for all substances including thc. Sw discussed negative effects of continued use and also discussed that a referral will be made to [facility]. Parents expressed understanding and states they were involved very briefly a couple of years ago due to edgar's daughter visiting from [place] and had not yet enrolled in school. OB resources discussed. [facility] closed today due to Presidents day, SW will make referral tomorrow and they can follow in community. [place] 26 year old admitted for induction of labor for di/di twins. Vaginal delivery. History of THC. Patient states she used during . Negative at delivery. Social service referral. Explained Marijuana use during can be harmful to your baby's health. The chemicals in marijuana (in particular, THC) pass through your system to your baby and can negatively affect your baby's development. Some research shows that using marijuana while you are can cause health problems in newborns-- including low weight and developmental problems. Research shows marijuana use during may make it hard for your child to pay attention or to learn, these issues may only become noticeable as your child grows older Chemicals from marijuana can be passed to your baby through breast milk. THC is stored in fat and is slowly released over time, meaning an infant could be exposed for a longer period of time. Patient is independent and has insurance. She is prepared with her baby supplies. Denies any needs for housing, transportation or food. Discussion on the A. B. C's of safe sleep. Always place your baby on his or her back to sleep, use a firm sleep surface and your baby should not sleep in an adult bed, on a couch or chair. Keep soft objects, toys and loose bedding out of your baby's sleep area. Reviewed post depression. It is common to have blues. This is a normal response to many of the hormonal changes, stress and lack of sleep that go with raising a and physically recovering from the . Don't hesitate to talk to your provider with any concerns. There are resources in your home going booklet. To help prevent germs from spreading to you and your baby, make sure everyone washes their hands before they handle your . Avoid crowds, and keep infant away from sick people, anyone who is sick with a cough or fever, including family members. To be discharged to home. Denies any concerns at this time. Met with patient to check in. Patient plans to exclusively pump instead of latching baby. Patient has been pumping and feeding the breastmilk to babies, but is still needing to supplement. Patient is comfortable with this plan, and has been giving babies 30ml of formula or breastmilk per feed. Reminded patient that we are here to help, even when they are discharged, reviewed our phone number, and encouraged patient to call with questions, or if she would like to join us in group. Patient denies further questions. Will continue to monitor and encourage. PT seen regarding of full term twins. These are babies 2 and 3 for pt. She BF older child (now 5 YO) for 1 yr and reports that she made plenty of milk. States that both babies BF well several times through the night and they have both voided and stooled. Assist given with BF of baby A. Placed skin to skin prone; pt laid back. Positioning basics and latching technique discussed; reinforced importance of deep, wide latch. Baby with off and on latching, but no consistent, rhythmic suckling. Baby appears very sleepy and not intereseted; attempted at breast x 15 minutes. Pt is able to hand express effectively. I encouraged pt to hand express and finger feed drops to baby at this time. Instructed to feed babies on demand, according to cues and at least 8 x in 24 hours (after the first 24). If no cues noted and three or more hours have passed since last feed, pt told to place baby skin to skin, offer the breast and call for assistance if no latching. Hunger and satiety behaviors discussed. Skin to skin positioning for all breastfeeds encouraged. Discussed benefits of skin to skin contact on milk production and feeding behaviors. Demand and supply system of milk production discussed. Pt told to call [facility] tomorrow to obtain insurance covered breast pump. Family shown how to use wall touch pad to call for LC. Pt and family receptive to all education. Notified by RN of increased bleeding and persistent severe range Bps. Pt was treated with 10 mg IR procardia, will recheck BP in 20 minutes time. Will start magnesium sulfate for seizure ppx. Now meets criteria for PreEwSF. On fundal check, large gush of blood noted. Pt pretreated with 4 mg IV morphine prior to bimanual exam. On bimanual exam, 200 ccs of clot evacuated from the lower uterine segment under US guidance. Dr. Saldivar in room to assess as well. After clot evacuated, pt was given 1000 mcg of rectal Cytotec. Will continue to closely monitor BP and bleeding. Total EBL now up to 500 ccs. Vitals: 07/18/22 1825 BP: (!) 151/102 Pulse: 75 Resp: Temp: SpO2: Problem: Vaginal or Section Goal: and maternal status remain reassuring during the process Outcome: Completed Problem: Pain - Adult Goal: Verbalizes/displays adequate comfort level or baseline comfort level Outcome: Completed Problem: Infection - Adult Goal: Absence of infection at discharge Outcome: Completed Goal: Absence of infection during hospitalization Outcome: Completed Goal: Absence of fever/infection during anticipated neutropenic period Outcome: Completed Problem: Safety - Adult Goal: Free from fall injury Outcome: Completed Problem: Discharge Planning Goal: Discharge to home or other facility with appropriate resources Outcome: Completed Images from the original note were not included. Vaginal Delivery Note Department of Obstetrics and Gynecology Patient: Catalina Marvin : 1995 Date of delivery: 07/18/2022 Pre-operative Diagnosis: Catalina Marvin at 38w1d 1. Term 2. Di/Di Twins 3. PreEwoSF Post-operative Diagnosis: Live Born female, Live Born female Delivering General Car Supervisor Yard & First Officer(s): Dr. Dolly Saldivar; Dr. Linwood Garcia Infant Information: Information for the patient's : Thomas Marvin [[id number]] Information for the patient's : Thomas Marvin [[id number]] Information for the patient's : Thomas Marvin [[id number]] Information for the patient's : Thomas Marvin TWO [[id number]] Description: normalx2 Meconium Noted: No Anesthesia: epidural anesthesia Complications: None Application and Delivery: Catalina Marvin at 38w1d admitted for IOL for Di/Di twins. Her labor course was complicated as she met criteria for PreEwoSF during her labor course with mild range Bps and an elevated UPC. She was induced with Cytotec, FB, AROM, and Pitocin. She made change to complete and was taken to the OR for delivery. Deedee manriquez was called. She was known to be GBS negative and received no prophylaxis. After pushing with contractions the head delivered Cephalic, left occiput anterior over an intact perineum. A nuchal cord was not present. The anterior, then posterior shoulder delivered easily and atraumatically followed by the rest of the infant. The infant was placed on the maternal abdomen and attended by the RN for evaluation. The was stimulated and dried. The cord was clamped and cut. Baby B was then evaluated and found to be cephalic. AROM was performed at that time for clear fluid. Pt pushed with contractions and the head delivered cephalic, right occiput anterior over an intact perineum. A nuchal cord was not present. The anterior and then posterior shoulder delivered easily and atraumatically followed by the rest of the infant. The was placed on the maternal abdomen and attended by the RN for evaluation. The was stimulated and dried. The cord was clamped and cut. The delivery of the placenta was spontaneous and appeared intact. Pitocin was started. The vagina was swept of all clots and debris. The perineum and vagina were evaluated. A No lacerations were found.. All counts were correct. Mother and baby tolerated procedure well. EBL: 300ml QBL: VTE Prophylaxis: Not Indicated LABOR DELIVERY ??? SCD's ONLY (labor through ambulation) SCD's PLUS Prophylactic Anticoagulation until discharge SCD's PLUS Prophylactic Anticoagulation for 6 weeks SCD's PLUS Therapeutic Anticoagulation for 6 weeks Vaginal Delivery [] BMI ? 40 kg/m2 Delivery All patients Vaginal Delivery [] BMI ? 40 kg/m2 AND [] Antepartum hospitalization ? 72 hours within the past month Delivery 1 Major Risk Factor: [] BMI ? 35 kg/m2 [] Low Risk Thrombophilia [] PPH+RBCs, IR, or operation [] Infection+Antibiotics [] Antepartum hospitalization ? 72 hours within the past month [] PMH: Sickle Cell, SLE, Cardiac Dz, Active IBD, Active Cancer, Nephrotic Syndrome OR 2 Minor Risk Factors: [] Multiple gestation [] Age > 40 [] PPH ? 1,000cc [] (+)FMH of VTE [] Smoker [] Preeclampsia [] BMI ? 40 kg/m2 AND [] Low Risk Thrombophilia OR ANY OF THE FOLLOWING: [] High Risk Thrombophilia without prior VTE [] Low Risk Thrombophilia with (+)FMH of VTE [] Any single prior VTE ANY OF THE FOLLOWING: [] Already on LMWH/UFH [] Multiple prior VTE [] High Risk Thrombophilia with prior VTE Low Risk Thrombophilia: FVL (heterozygous), Prothrombin (heterozygous), Protein C, Protein S High Risk Thrombophilia: FVL (homozygous), Prothrombin (homozygous), FVL+Prothrombin (heterozygous), Antithrombin III, APLS Delivery Summary: Specimen: Placenta Blood Type and Rh: O Rubella Immunity Status: No results found for: RUBELLAIGG LINWOOD Garcia DO 07/18/2022, 7:55 PM Associated attestation - Dolly Saldivar MD - 07/18/2022 10:57 PM EST Procedures or Surgery: I was present for all raphael elements of the procedure or surgery as described in the resident note. Problem: Vaginal or Section Goal: and maternal status remain reassuring during the process Outcome: Progressing Problem: Pain - Adult Goal: Verbalizes/displays adequate comfort level or baseline comfort level Outcome: Progressing Problem: Infection - Adult Goal: Absence of infection at discharge Outcome: Progressing Goal: Absence of infection during hospitalization Outcome: Progressing Goal: Absence of fever/infection during anticipated neutropenic period Outcome: Progressing Problem: Safety - Adult Goal: Free from fall injury Outcome: Progressing Problem: Discharge Planning Goal: Discharge to home or other facility with appropriate resources Outcome: Progressing documented in this encounter [facility] 07-20-2022 Hospital course Narrative Images from the original note were not included. Department of Obstetrics and Gynecology Delivery Discharge Summary Admission on 07/17/2022 8:58 PM Reason for admission: IOL-Di/Di twins Intrapartum Course: Her labor course was complicated as she met criteria for PreEwoSF during her labor course with mild range Bps and an elevated UPC. She was induced with Cytotec, FB, AROM, and Pitocin. She made change to complete and was taken to the OR for delivery. Code declan was called. 38w1d PC-01 Indications for Delivery: Was patient delivered between 37w0d - [id number]? Yes - di/di twins Surgical Operations & Procedures: Date of delivery: 07/18/22 Delivery Type: Vaginal, Spontaneous Delivery x2 Anesthesia: Epidural anesthesia Laceration(s): none Delivery Complications: none EBL: 300 cc Pertinent Findings & Procedures: Information for the patient's : Salome Marvin [[id number]] female 7 lb 3.3 oz (3.27 kg) Information for the patient's : Yolanda Marvin [[id number]] female 6 lb 10.9 oz (3.03 kg) Apgars: Information for the patient's : Krista Marvinmuna [[id number]] Information for the patient's : Quirino Marvinmuna [[id number]] Course: Met criteria for PreEwSF following delivery. Started on procardia XL which was titrated to 60/30 Infant: female x2 Blood Type/Rh: O Antibody Screen: No results found for: LABANTI Rubella: No results found for: RUBELLAIGG Contraception: no method : yes VTE Prophylaxis: Not Indicated Meds: Medication List START taking these medications acetaminophen 500 MG tablet Commonly known as: Tylenol Extra Strength Take 2 tablets (1,000 mg) by mouth every 8 hours as needed for mild pain (1-3). Comfort Touch BP Cuff/Medium misc 1 each daily. Take blood pressure twice per day and record results ibuprofen 600 MG tablet Take 1 tablet (600 mg) by mouth every 6 hours as needed for mild pain (1-3). * NIFEdipine XL 30 MG 24 hr tablet Commonly known as: Procardia XL Take 1 tablet (30 mg) by mouth Nightly. Do not crush, chew, or split. * NIFEdipine XL 30 MG 24 hr tablet Commonly known as: Procardia XL Take 2 tablets (60 mg) by mouth daily. Do not crush, chew, or split. Do not start before July 21, 2022. Start taking on: July 21, 2022 * This list has 2 medication(s) that are the same as other medications prescribed for you. Read the directions carefully, and ask your doctor or other care provider to review them with you. CONTINUE taking these medications calcium carbonate 500 MG chewable tablet Commonly known as: Tums ferrous sulfate 325 (65 Fe) MG tablet Commonly known as: FerrouSul Take 1 tablet (325 mg) by mouth 2 times daily. omeprazole [address] capsule Commonly known as: PriLOSEC VITAMIN PO STOP taking these medications aspirin 81 MG EC tablet Where to Get Your Medications These medications were sent to [facility]/pharmacy #[id number] - [place], [place] - [address] AT [id number] [place] [address] acetaminophen 500 MG tablet Comfort Touch BP Cuff/Medium misc ibuprofen 600 MG tablet NIFEdipine XL 30 MG 24 hr tablet NIFEdipine XL 30 MG 24 hr tablet Activity: Activity as tolerated Diet: Regular diet Follow up Care: Follow up appointment in 3 days for BP check Condition on discharge: Stable Discharge to: Home Discharge date: 07/20/22 Discharge Dx: s/p , di/di twins, term , PreEwSF Instructions to Patient:: Pelvic Rest (no intercourse, tampons, douching, etc) x 6 weeks Specific discharge instruction printed Dichorionic diamniotic twin gestation [O30.049] Patient Active Problem List Diagnosis Dichorionic diamniotic twin in second trimester care, antepartum Depression affecting Anemia during Dichorionic diamniotic twin gestation (spontaneous vaginal delivery) Pre-eclampsia in third trimester Comments: Home care, Follow-up care and control were reviewed. Signs and symptoms of mastitis and Post Depression were reviewed. The patient is to notify her physician if any of these occur. Shaina Lucero MD on 07/20/2022 at 4:07 PM documented in this encounter [facility] 07-20-2022 Telephone encounter Note Please call patient to be seen in 3 days for BP check. Thanks! [facility] 07-20-2022 Miscellaneous Notes Please call patient to be seen in 3 days for BP check. Thanks! documented in this encounter [facility] 07-20-2022 Hospital Discharge instructions Shaina Lucero MD - 07/20/2022 4:05 PM EST Thank you for allowing us to care of you at [facility]. This time can be one of many emotional ups and downs and many changes in your life. In these first weeks try to take good care of yourself because you will likely feel very tired. It may take 4 to 6 weeks to feel like yourself again, and possibly longer if you had a . FOLLOW-UP: Your follow-up care is a raphael part of your treatment and safety. Follow-up with your OB providerin 4 weeks or as specified by your OB provider. If you had high blood pressure, visit your OB provider within 3-5 days after being home. Most women's blood pressure will return to pre- levels after delivery. However, some patients continue to have problems with their blood pressure, and some even get worse. Very high blood pressure can lead to seizures or stroke which can be life threatening. If ordered by your provider, take your blood pressure at home and call your OB provider if you have a high reading. Your OB provider can write you a prescription for a blood pressure monitor if you do not have one. Be sure to make and go to all appointments, and call your OB provider if you are having problems. It's also a good idea to know your test results and keep a list of the medicines you take. BLEEDING Vaginal bleeding will decrease in amount over the next few weeks. 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 Use pads instead of tampons for the bloody flow that may last as long as 2 weeks. You will notice that as your activity increases, your flow may increase. Call your provider if you are saturating one maxi pad in an hour & passing large clots for 3 hours or more. ACTIVITY NO SEXUAL activity for 6 weeks or until advised by your OB provider; Nothing in vagina: intercourse, tampons, or douching. Begin to think about your reproductive life plan. Talk to your OB provider about if and when you would like another baby in the future. The recommendation for safe spacing is 18-24 months. Showering is okay; NO tub baths, swimming, or hot tubs. Gradually increase your activity. Resume exercise regimen only after advised by your )OB provider. Avoid lifting anything heavier than ten pounds or a gallon of milk for six weeks. Avoid driving 1 week for vaginal delivery and 2 weeks for section, or longer if you are on prescription pain medicine unless otherwise instructed by your OB provider . Rise slowly from a lying to sitting and then a standing position. Climb stairs carefully. You may feel tired or have a lack of energy. You may continue your vitamin to replenish nutrients post-delivery. Nap when whenever you can to catch up on sleep. EMOTIONS You may feel oakes, sad, teary, & overwhelmed for the first 2 weeks ; however, feelings of depression may occur any time within the first year after delivery. Contact your OB provider if you feel you may be showing signs of depression, or have thoughts of harming yourself or or anyone.. WOUND CARE For Vaginal Delivery: Shower daily, and cleanse your perineum (bottom) with mild soap from front to back. Use the plastic squirt bottle until bleeding stops each time you use the restroom instead of wiping with toilet paper. Ease soreness of hemorrhoids and the area between your vagina and rectum with ice compresses or witch gonzález pads. If used, stitches will dissolve in 4-6 weeks on their own. You may use a sitz bath or soak in a clean tub with drain open and water running for comfort. Kegel exercises will help restore bladder control. To do these tighten your muscles as if you were stopping your urine flow. Hold for a few seconds and then relax. Do these throughout the day. For Section Delivery: Keep your incision clean and dry. If you had steri-strips you may remove these once they start falling off. If you have mike they need to be removed 3-10 daysafter delivery. If you have steri-strips, remove after 7 - 10 days. Do not wear clothing that irritates the incision line. If your incision is in a crease that is not dry, use a hair-dryer to dry the area 3 times a day. If you develop fever, shaking chills, redness, swelling, drainage or discharge from your wound, or if your wound looks like it is coming apart call your provider immediately. BREAST CARE If you develop a warm, red, tender area on your breast or develop a fever contact your OB provider. If your breasts become engorged ask your provider because treatment can vary according to your needs. DIET & CONSTIPATION Eat a well-balanced diet focusing on foods high in fiber and protein such as: whole grain cereals and breads, fruits and vegetables and legumes (eg, beans, lentils) Drink 8-10 glasses of fluids daily, especially water. Limit caffeine. To avoid constipation you may take a mild [id number] stool softener (such as colace) as recommended by your OB provider. SWELLING Try to keep your legs elevated when you are sitting or lying down. Stay hydrated and take walks. If you had high blood pressure, weigh yourself at the same time each day. Write down your weight and take the record to your OB provider appointment. MEDICATIONS Take all medications prescribed for you exactly as ordered. Don't take any drugs not prescribed to you or over the counter medicines unless recommended by your provider. Don't smoke. WHEN TO CALL THE OB PROVIDER Signs of infection, including fever and chills Increased bleeding: soaking more than one pad an hour or passing clots the size of an egg or larger. Wounds that become red, swollen or drain pus Vaginal discharge that smells foul New pain, swelling, or tenderness in your legs Pain that you can't control with the medications you've been given Pain, burning, urgency or frequency of urination, or persistent bleeding in the urine Cough, shortness of breath, or serious difficulty catching your breath Chest pain or pain in the upper right area of your belly Headache (very painful) or vision changes like blurry or double vision, seeing spots or 'auras' Swelling that is worse or weight gain of more than 3 pounds in 3 days Depression, suicidal thoughts, or feelings of harming someone else Breasts that are hot, red and accompanied by fever Any cracking or bleeding from the nipple or areola (the dark-colored area of the breast) You may have been given a magnet like this: If so, we encourage you to use it on your refrigerator as a reminder of when to call your OB provider. IIn case of an emergency, call 911 immediately. If you are Covid-19 positive or a Person Under Investigation (PUI) These could be signs that your COVID-19 symptoms are worsening and you may need emergency care: You are severely dizzy or lightheaded. You are confused or can't think clearly. Your face and lips have a blue color. You are unable to respond to others or are very hard to wake up. Prevention steps for People with confirmed or suspected COVID-19 (including persons under investigation) who do not need to be hospitalized and People with confirmed COVID-19 who were hospitalized and determined to be medically stable to go home Your healthcare provider and public health staff will evaluate whe ther you can be cared for at home. If it is determined that you do not need to be hospitalized and can be isolated at home, you will be monitored by staff from your local or state health department. You should follow the prevention steps below until a healthcare provider or local or state health department says you can return to your normal activities. Stay home except to get medical care People who are mildly ill with COVID-19 are able to isolate at home during their illness. You should restrict activities outside your home, except for getting medical care. Do not go to work, school, or public areas. Avoid using public transportation, ride-sharing, or taxis. Separate yourself from other people and animals in your home People: As much as possible, you should stay in a specific room and away from other people in your home. Also, you should use a separate bathroom, if available. Animals: You should restrict contact with pets and other animals while you are sick with COVID-19, just like you would around other people. Although there have not been reports of pets or other animals becoming sick with COVID-19, it is still recommended that people sick with COVID-19 limit contact with animals until more information is known about the virus. When possible, have another member of your household care for your animals while you are sick. If you are sick with COVID-19, avoid contact with your pet, including petting, snuggling, being kissed or licked, and sharing food. If you must care for your pet or be around animals while you are sick, wash your hands before and after you interact with pets and wear a facemask. Call ahead before visiting your provider If you have a medical appointment, call the healthcare provider and tell them that you have or may have COVID-19. This will help the healthcare provider's office take steps to keep other people from getting infected or exposed. Wear a facemask You should wear a facemask when you are around other people (e.g., sharing a room or vehicle) or pets and before you enter a healthcare provider's office. If you are not able to wear a facemask (for example, because it causes trouble breathing), then people who live with you should not stay in the same room with you, or they should wear a facemask if they enter your room. Cover your coughs and sneezes Cover your mouth and nose with a tissue when you cough or sneeze. Throw used tissues in a lined trash can. Immediately wash your hands with soap and water for at least 20 seconds or, if soap and water are not available, clean your hands with an alcohol-based hand burner machine operator that contains at least 60% alcohol. Clean your hands often Wash your hands often with soap and water for at least 20 seconds, especially after blowing your nose, coughing, or sneezing; going to the bathroom; and before eating or preparing food. If soap and water are not readily available, use an alcohol-based hand burner machine operator with at least 60% alcohol, covering all surfaces of your hands and rubbing them together until they feel dry. Soap and water are the best option if hands are visibly dirty. Avoid touching your eyes, nose, and mouth with unwashed hands. Avoid sharing personal household items You should not share dishes, drinking glasses, cups, eating utensils, towels, or bedding with other people or pets in your home. After using these items, they should be washed thoroughly with soap and water. Clean all high-touch surfaces everyday High touch surfaces include counters, tabletops, doorknobs, bathroom fixtures, toilets, phones, keyboards, tablets, and bedside tables. Also, clean any surfaces that may have blood, stool, or body fluids on them. Use a household cleaning spray or wipe, according to the label instructions. Labels contain instructions for safe and effective use of the cleaning product including precautions you should take when applying the product, such as wearing gloves and making sure you have good ventilation during use of the product. Monitor your symptoms Seek prompt medical attention if your illness is worsening (e.g., difficulty breathing). Before seeking care, call your healthcare provider and tell them that you have, or are being evaluated for, COVID-19. Put on a facemask before you enter the facility. These steps will help the healthcare provider's office to keep other people in the office or waiting room from getting infected or exposed. Ask your healthcare provider to call the local or state health department. Persons who are placed under active monitoring or facilitated self-monitoring should follow instructions provided by their local health department or occupational health professionals, as appropriate. When working with your local health department check their available hours. If you have a medical emergency and need to call 911, notify the dispatch personnel that you have, or are being evaluated for COVID-19. If possible, put on a facemask before emergency medical services arrive. Discontinuing home isolation Patients with confirmed COVID-19 should remain under home isolation precautions until the risk of secondary transmission to others is thought to be low. The decision to discontinue home isolation precautions should be made on a [id number] basis, in consultation with healthcare providers and state and [facility] health departments. Information on COVID-19 for all patients Call your provider before your next appointment if you develop any of the following symptoms: fever, cough, fatigue, anorexia, shortness of breath, sputum production, and muscle pains. Headache, confusion, rhinorrhea, sore throat, hemoptysis, vomiting, and diarrhea have been reported but are less common. Some persons with COVID-19 have experienced gastrointestinal symptoms such as diarrhea and nausea prior to developing fever and lower respiratory tract signs and symptoms. Ways to [place] with Anxiety & Stress It is normal to feel anxious or worried about COVID-19. You might feel sad about canceling celebrations and staying away from family and friends. Keep in mind that most people do not get severely ill from COVID-19. It is important to have a plan in case you get sick to prevent spreading the disease to others including an Advanced Care Plan (communicating and documenting your desired health care plan with family and healthcare team). You can take care of yourself by: Taking a break from watching the news Take deep breaths, stretch or meditate Getting exercise, eating healthy foods, and drinking plenty of water Finding activities you can enjoy inside your home Staying in touch with your family and friends. Tell your partner, family, and friends how you are feeling. Advance Care Planning People with COVID-19 may have no symptoms, mild symptoms, such as fever, cough, and shortness of breath or they may have more severe illness, developing severe and fatal pneumonia. As a result, Advance Care Planning with attention to naming a health care decision maker (someone you trust to make healthcare decisions for you if you could not speak for yourself) and sharing other health care preferences is important BEFORE a possible health crisis. Please contact your Primary Care Provider to discuss Advance Care Planning. Learning About Coronavirus (COVID-19) Coronavirus (COVID-19): Overview What is coronavirus (COVID-19)? The coronavirus disease (COVID-19) is caused by a virus. It is an illness that was first found in [facility], in April 2019. It has since spread worldwide. The virus can cause fever, cough, and trouble breathing. In severe cases, it can cause pneumonia and make it hard to breathe without help. It can cause . Coronaviruses are a large group of viruses. They cause the common cold. They also cause more serious illnesses like [place] respiratory syndrome (MERS) and severe acute respiratory syndrome (SARS). COVID-19 is caused by a novel coronavirus. That means it's a new type that has not been seen in people before. This virus spreads [id number]-dtorxj through droplets from coughing and sneezing. It can also spread when you are close to someone who is infected. It is always good practice to clean high touch surfaces frequently and avoid touching your mouth, nose and eyes until you have washed your hands if you touched these areas. What can you do to protect yourself from coronavirus (COVID-19)? The best way to protect yourself from getting sick is to: Wear a face mask. Avoid areas where there is an outbreak. Avoid contact with people who may be infected. Wash your hands often with soap or alcohol-based hand sanitizers. Avoid crowds and try to stay at least 6 feet away from other people. Wash your hands often, especially after you cough or sneeze. Use soap and water, and scrub for at least 20 seconds. If soap and water aren't available, use an alcohol-based hand burner machine operator. Call 911 anytime you think you may need emergency care. For example, call if: You have severe trouble breathing. (You can't talk at all.) You have constant chest pain or pressure. You are severely dizzy or lightheaded. You are confused or can't think clearly. Your face and lips have a blue color. You pass out (lose consciousness) or are very hard to wake up. Call your OB Provider now if you develop symptoms such as: Shortness of breath. Fever. Cough. If you need to get care, call ahead to the provider's office for instructions before you go. Make sure you wear a face mask, to prevent exposing other people to the virus. Where can you get the latest information? The following health organizations are tracking and studying this virus. Their websites contain the most up-to-date information. You'll also learn what to do if you think you may have been exposed to the virus. [place]. Centers for Disease Control and Prevention (CDC): The CDC provides updated news about the disease and travel advice. The website also tells you how to prevent the spread of infection. www.cdc.gov World Health Organization (WHO): WHO offers information about the virus outbreaks. WHO also has travel advice. www.who.int Current as of: August 30, 2019 Content Version: 12.4 [employer]. Care instructions adapted under license by your healthcare professional. If you have questions about a medical condition or this instruction, always ask your healthcare professional. [employer] disclaims any warranty or liability for your use of this information. General Recommendations for Routine Cleaning and Disinfection of Households Community members can practice routine cleaning of frequently touched surfaces (for example: tables, doorknobs, light switches, handles, desks, toilets, faucets, sinks) with household control room agent and EPA-registered disinfectants that are appropriate for the surface, following label instructions. Labels contain instructions for safe and effective use of the cleaning product including precautions you should take when applying the product, such as wearing gloves and making sure you have good ventilation during use of the product. These guidelines are focused on household settings and are meant for the general public. Cleaning refers to the removal of germs, dirt, and impurities from surfaces. Cleaning does not kill germs, but by removing them, it lowers their numbers and the risk of spreading infection. Disinfecting refers to using chemicals to kill germs on surfaces. This process does not necessarily clean dirty surfaces or remove germs, but by killing germs on a surface after cleaning, it can further lower the risk of spreading infection. General Recommendations for Cleaning and Disinfection of Households with People Isolated in Home Care - Confirmed or suspected COVID 19 Household members should educate themselves about COVID-19 symptoms and preventing the spread of COVID-19 in homes. Clean and disinfect high-touch surfaces daily in household common areas (e.g. tables, hard-backed chairs, doorknobs, light switches, remotes, handles, desks, toilets, sinks) In the bedroom/bathroom dedicated for an ill person: consider reducing cleaning frequency to as-needed (e.g., soiled items and surfaces) to avoid unnecessary contact with the ill person. As much as possible, an ill person should stay in a specific room and away from other people in their home. The caregiver can provide personal cleaning supplies for an ill person's room and bathroom, unless the room is occupied by child or another person for whom such supplies would not be appropriate. These supplies include tissues, paper towels, control room agent and EPA-registered disinfectants (see list link at CDC website). If a separate bathroom is not available, the bathroom should be cleaned and disinfected after each use by an ill person. If this is not possible, the caregiver should wait as long as practical after use by an ill person to clean and disinfect the high-touch surfaces. How to clean and disinfect: Hard Surfaces Wear disposable gloves when cleaning and disinfecting surfaces. Gloves should be discarded after each cleaning. If reusable gloves are used, those gloves should be dedicated for cleaning and disinfection of surfaces for COVID-19 and should not be used for other purposes. Consult the circulating nurse's instructions for cleaning and disinfection products used. Clean hands immediately after gloves are removed. If surfaces are dirty, they should be cleaned using a detergent or soap and water prior to disinfection. For disinfection, diluted household bleach solutions, alcohol solutions with at least 70% alcohol, and most common EPA-registered household disinfectants should be effective. Diluted household bleach solutions can be used if appropriate for the surface. Follow circulating nurse's instructions for application and proper ventilation. Check to ensure the product is not past its expiration date. Never mix household bleach with ammonia or any other cleanser. Unexpired household bleach will be effective against coronaviruses when properly diluted. Prepare a bleach solution by mixin tablespoons (1/3rd cup) bleach per gallon of water or 4 teaspoons bleach per quart of water Products with EPA-approved emerging viral pathogens claimspdf iconexternal icon are expected to be effective against COVID-19 based on data for harder to kill viruses. Follow the circulating nurse's instructions for all cleaning and disinfection products (e.g., concentration, application method and contact time, etc.). Soft (porous) surfaces such as carpeted floor, rugs, and drapes Remove visible contamination if present and clean with appropriate control room agent indicated for use on these surfaces. After cleaning: Launder items as appropriate in accordance with the circulating nurse's instructions. If possible, launder items using the warmest appropriate water setting for the items and dry items completely, or Clothing, towels, linens and other items that go in the laundry Wear disposable gloves when handling dirty laundry from an ill person and then discard after each use. If using reusable gloves, those gloves should be dedicated for cleaning and disinfection of surfaces for COVID-19 and should not be used for other household purposes. Clean hands immediately after gloves are removed. If no gloves are used when handling dirty laundry, be sure to wash hands afterwards. If possible, do not shake dirty laundry. This will minimize the possibility of dispersing virus through the air. Launder items as appropriate in accordance with the circulating nurse's instructions. If possible, launder items using the warmest appropriate water setting for the items and dry items completely. Dirty laundry from an ill person can be washed with other people's items. Clean and disinfect clothes hampers according to guidance above for surfaces. If possible, consider placing a paper bag maker that is either disposable (can be thrown away) or can be laundered. CDC has a list of EPA approved cleaning products on their website - https://www.cdc.gov/coronavirus/2 019-ncov/community/home/cleaning- disinfection.html https://www.[employer] /Oerij-Qlvggdxpdrp-Ceowwddt-Produ cts-List.pdf Grocery Stores with delivery and cherry picker operator services: [employer]: Free cherry picker operator at locations Delivery is $12.95 a month Website - [employer] [place]: Gra[employer] $2.95 (1st order is free) Delivery is $14.95 Website - [employer] Rissa Weiner: supervisor water treatment plant is free Delivery is $5.95 Website - [employer]: supervisor water treatment plant is $4.95 Delivery is $9.95 Website - [employer]: supervisor water treatment plant is $4.95 Delivery is $9.95 Website - [employer]: Can be ordered for delivery and cherry picker operator with [employer] Website - [employer]: Free deliver for first 3 orders of $35 or more Website - [employer] Will deliver from [facility], [employer], [employer], and [employer]. Annual membership is $99 Monthly membership is $14 The following attachments cannot be sent through Care Everywhere.Common Problems (Serbian)documented in this encounter [facility] 07-20-2022 Note Formatting of this n ote might be different from the original. 26 year old admitted for induction of labor for di/di twins. Vaginal delivery. History of THC. Patient states she used during . Negative at delivery. Social service referral. Explained Marijuana use during can be harmful to your baby's health. The chemicals in marijuana (in particular, THC) pass through your system to your baby and can negatively affect your baby's development. Some research shows that using marijuana while you are can cause health problems in newborns-- including low weight and developmental problems. Research shows marijuana use during may make it hard for your child to pay attention or to learn, these issues may only become noticeable as your child grows older Chemicals from marijuana can be passed to your baby through breast milk. THC is stored in fat and is slowly released over time, meaning an infant could be exposed for a longer period of time. Patient is independent and has insurance. She is prepared with her baby supplies. Denies any needs for housing, transportation or food. Discussion on the A. B. C's of safe sleep. Always place your baby on his or her back to sleep, use a firm sleep surface and your baby should not sleep in an adult bed, on a couch or chair. Keep soft objects, toys and loose bedding out of your baby's sleep area. Reviewed post depression. It is common to have blues. This is a normal response to many of the hormonal changes, stress and lack of sleep that go with raising a and physically recovering from the . Don't hesitate to talk to your provider with any concerns. There are resources in your home going booklet. To help prevent germs from spreading to you and your baby, make sure everyone washes their hands before they handle your . Avoid crowds, and keep away from sick people, anyone who is sick with a cough or fever, including family members. To be discharged to home. Denies any concerns at this time. [facility] 07-20-2022 Note Formatting of this n ote might be different from the original. 26 year old admitted for induction of labor for di/di twins. Vaginal delivery. History of THC. Patient states she used during . Negative at delivery. Social service referral. Explained Marijuana use during can be harmful to your baby's health. The chemicals in marijuana (in particular, THC) pass through your system to your baby and can negatively affect your baby's development. Some research shows that using marijuana while you are can cause health problems in newborns-- including low weight and developmental problems. Research shows marijuana use during may make it hard for your child to pay attention or to learn, these issues may only become noticeable as your child grows older Chemicals from marijuana can be passed to your baby through breast milk. THC is stored in fat and is slowly released over time, meaning an infant could be exposed for a longer period of time. Patient is independent and has insurance. She is prepared with her baby supplies. Denies any needs for housing, transportation or food. Discussion on the A. B. C's of safe sleep. Always place your baby on his or her back to sleep, use a firm sleep surface and your baby should not sleep in an adult bed, on a couch or chair. Keep soft objects, toys and loose bedding out of your baby's sleep area. Reviewed post depression. It is common to have blues. This is a normal response to many of the hormonal changes, stress and lack of sleep that go with raising a and physically recovering from the . Don't hesitate to talk to your provider with any concerns. There are resources in your home going booklet. To help prevent germs from spreading to you and your baby, make sure everyone washes their hands before they handle your . Avoid crowds, and keep away from sick people, anyone who is sick with a cough or fever, including family members. To be discharged to home. Denies any concerns at this time. [facility] 07-20-2022 Obstetrics Note Met with patient to check in. Patient plans to exclusively pump instead of latching baby. Patient has been pumping and feeding the breastmilk to babies, but is still needing to supplement. Patient is comfortable with this plan, and has been giving babies 30ml of formula or breastmilk per feed. Reminded patient that we are here to help, even when they are discharged, reviewed our phone number, and encouraged patient to call with questions, or if she would like to join us in group. Patient denies further questions. Will continue to monitor and encourage. [facility] 07-19-2022 Obstetrics Note PT seen regarding of full term twins. These are babies 2 and 3 for pt. She BF older child (now 5 YO) for 1 yr and reports that she made plenty of milk. States that both babies BF well several times through the night and they have both voided and stooled. Assist given with BF of baby A. Placed skin to skin prone; pt laid back. Positioning basics and latching technique discussed; reinforced importance of deep, wide latch. Baby with off and on latching, but no consistent, rhythmic suckling. Baby appears very sleepy and not intereseted; attempted at breast x 15 minutes. Pt is able to hand express effectively. I encouraged pt to hand express and finger feed drops to baby at this time. Instructed to feed babies on demand, according to cues and at least 8 x in 24 hours (after the first 24). If no cues noted and three or more hours have passed since last feed, pt told to place baby skin to skin, offer the breast and call for assistance if no latching. Hunger and satiety behaviors discussed. Skin to skin positioning for all breastfeeds encouraged. Discussed benefits of skin to skin contact on milk production and feeding behaviors. Demand and supply system of milk production discussed. Pt told to call [facility] tomorrow to obtain insurance covered breast pump. Family shown how to use wall touch pad to call for LC. Pt and family receptive to all education. [employer] [facility] 07-18-2022 Note Formatting of this n ote is different from the original. Notified by RN of increased bleeding and persistent severe range Bps. Pt was treated with 10 mg IR procardia, will recheck BP in 20 minutes time. Will start magnesium sulfate for seizure ppx. Now meets criteria for PreEwSF. On fundal check, large gush of blood noted. Pt pretreated with 4 mg IV morphine prior to bimanual exam. On bimanual exam, 200 ccs of clot evacuated from the lower uterine segment under US guidance. Dr. Saldivar in room to assess as well. After clot evacuated, pt was given 1000 mcg of rectal Cytotec. Will continue to closely monitor BP and bleeding. Total EBL now up to 500 ccs. Vitals: 07/18/22 1825 BP: (!) 151/102 Pulse: 75 Resp: Temp: SpO2: [employer] [facility] 07-18-2022 Note Formatting of this n ote is different from the original. Notified by RN of increased bleeding and persistent severe range Bps. Pt was treated with 10 mg IR procardia, will recheck BP in 20 minutes time. Will start magnesium sulfate for seizure ppx. Now meets criteria for PreEwSF. On fundal check, large gush of blood noted. Pt pretreated with 4 mg IV morphine prior to bimanual exam. On bimanual exam, 200 ccs of clot evacuated from the lower uterine segment under US guidance. Dr. Saldivar in room to assess as well. After clot evacuated, pt was given 1000 mcg of rectal Cytotec. Will continue to closely monitor BP and bleeding. Total EBL now up to 500 ccs. Vitals: 07/18/22 1825 BP: (!) 151/102 Pulse: 75 Resp: Temp: SpO2: [employer] 07-18-2022 Plan of care note Problem: Vaginal or Section Goal: and maternal status remain reassuring during the process Outcome: Completed Problem: Pain - Adult Goal: Verbalizes/displays adequate comfort level or baseline comfort level Outcome: Completed Problem: Infection - Adult Goal: Absence of infection at discharge Outcome: Completed Goal: Absence of infection during hospitalization Outcome: Completed Goal: Absence of fever/infection during anticipated neutropenic period Outcome: Completed Problem: Safety - Adult Goal: Free from fall injury Outcome: Completed Problem: Discharge Planning Goal: Discharge to home or other facility with appropriate resources Outcome: Completed [employer] 07-18-2022 Labor and delivery summary note Images from the original note were not included. Vaginal Delivery Note Department of Obstetrics and Gynecology Patient: Catalina Marvin : 1995 Date of delivery: 07/18/2022 Pre-operative Diagnosis: Catalina Marvin at 38w1d 1. Term 2. Di/Di Twins 3. PreEwoSF Post-operative Diagnosis: Live Born female, Live Born female Delivering General Car Supervisor Yard & First Officer(s): Dr. Dolly Saldivar; Dr. Linwood Garcia Information: Information for the patient's : Thomas Marvin [[id number]] Information for the patient's : Thomas Marvin [[id number]] Information for the patient's : Thomas Marvin [[id number]] Information for the patient's : Thomas Marvin [[id number]] Description: normalx2 Meconium Noted: No Anesthesia: epidural anesthesia Complications: None Application and Delivery: Catalina Marvin at 38w1d admitted for IOL for Di/Di twins. Her labor course was complicated as she met criteria for PreEwoSF during her labor course with mild range Bps and an elevated UPC. She was induced with Cytotec, FB, AROM, and Pitocin. She made change to complete and was taken to the OR for delivery. Deedee declan was called. She was known to be GBS negative and received no prophylaxis. After pushing with contractions the head delivered Cephalic, left occiput anterior over an intact perineum. A nuchal cord was not present. The anterior, then posterior shoulder delivered easily and atraumatically followed by the rest of the . The was placed on the maternal abdomen and attended by the RN for evaluation. The was stimulated and dried. The cord was clamped and cut. Baby B was then evaluated and found to be cephalic. AROM was performed at that time for clear fluid. Pt pushed with contractions and the head delivered cephalic, right occiput anterior over an intact perineum. A nuchal cord was not present. The anterior and then posterior shoulder delivered easily and atraumatically followed by the rest of the . The was placed on the maternal abdomen and attended by the RN for evaluation. The infant was stimulated and dried. The cord was clamped and cut. The delivery of the placenta was spontaneous and appeared intact. Pitocin was started. The vagina was swept of all clots and debris. The perineum and vagina were evaluated. A No lacerations were found.. All counts were correct. Mother and baby tolerated procedure well. EBL: 300ml QBL: VTE Prophylaxis: Not Indicated LABOR DELIVERY ??? SCD's ONLY (labor through ambulation) SCD's PLUS Prophylactic Anticoagulation until discharge SCD's PLUS Prophylactic Anticoagulation for 6 weeks SCD's PLUS Therapeutic Anticoagulation for 6 weeks Vaginal Delivery [] BMI ? 40 kg/m2 Delivery All patients Vaginal Delivery [] BMI ? 40 kg/m2 AND [] Antepartum hospitalization ? 72 hours within the past month Delivery 1 Major Risk Factor: [] BMI ? 35 kg/m2 [] Low Risk Thrombophilia [] PPH+RBCs, IR, or operation [] Infection+Antibiotics [] Antepartum hospitalization ? 72 hours within the past month [] PMH: Sickle Cell, SLE, Cardiac Dz, Active IBD, Active Cancer, Nephrotic Syndrome OR 2 Minor Risk Factors: [] Multiple gestation [] Age > 40 [] PPH ? 1,000cc [] (+)FMH of VTE [] Smoker [] Preeclampsia [] BMI ? 40 kg/m2 AND [] Low Risk Thrombophilia OR ANY OF THE FOLLOWING: [] High Risk Thrombophilia without prior VTE [] Low Risk Thrombophilia with (+)FMH of VTE [] Any single prior VTE ANY OF THE FOLLOWING: [] Already on LMWH/UFH [] Multiple prior VTE [] High Risk Thrombophilia with prior VTE Low Risk Thrombophilia: FVL (heterozygous), Prothrombin (heterozygous), Protein C, Protein S High Risk Thrombophilia: FVL (homozygous), Prothrombin (homozygous), FVL+Prothrombin (heterozygous), Antithrombin III, APLS Delivery Summary: Specimen: Placenta Blood Type and Rh: O Rubella Immunity Status: No results found for: RUBELLAIGG LINWOOD Garcia DO 07/18/2022, 7:55 PM Associated attestation - Dolly Saldivar MD - 07/18/2022 10:57 PM EST Procedures or Surgery: I was present for all raphael elements of the procedure or surgery as described in the resident note. [facility] 07-18-2022 Note Epidural Block Time Out: 07/18/2022 3:23 AM Patient location during procedure: OB Start time: 07/18/2022 3:25 AM End time: 07/18/2022 3:34 AM Reason for block: labor analgesia Staffing Performed: NCR OPERATOR Resident/NCR OPERATOR: Akash Eubanks APRN - TED Preanesthetic Checklist Completed: patient identified, IV checked, site marked, risks and benefits discussed, surgical consent, monitors and equipment checked, pre-op evaluation, timeout performed, IV bolus and anesthesia consent given Block Placement Patient position: sitting Prep: ChloraPrep Sterility prep: drape, gloves, cap, hand and mask Sedation level: no sedation Patient monitoring: heart rate Approach: midline Location: lumbar Lumbar location: L4-L5 Epidural Loss of resistance technique: saline Guidance: landmark technique Needle Needle type: Maynor Needle gauge: 17 G Needle length: 9 cm Needle insertion depth: 6.5 cm Catheter type: multi-orifice Catheter size: 19 G Catheter at skin depth: 13 cm Catheter securement method: surgical tape, liquid medical adhesive and clear occlusive dressing Test dose: negative Medications Administered lidocaine-EPINEPHrine (Xylocaine W/EPI) 1.5 %-:[id number] injection - Epidural 1.5 mg - 07/18/2022 3:30:00 AM Assessment Block outcome: pain improved Number of attempts: 1 Procedure assessment: patient tolerated procedure well with no immediate complications [facility] 07-18-2022 Note Labor Progress Note Date: 07/18/2022 Time: 12:12 AM Subjective: Catalina Marvin is a 26 y.o. female at 38w1d admitted for IOL-Di/Di twins Complications: Di/Di PreEwoSF SVE on admission: /- GBS: []Pos []Neg []Unknown Cat I/Cat I with moderate variability and spon accels. Safety huddle called due to difficult time getting 20min of both twins on the monitor. 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 FREDERIC ROCK DO 07/18/2022 12:17 AM Patient not feeling well, having headache at this time and nausea. BP elevated. PreE labs pending. No SOB, RUQ pain or vision changes. Will continue to monitor. FREDERIC ROCK DO 07/18/2022 12:25 AM Cat I/Cat I with moderate variability and spon accels. Pit @4cc/hr. Will continue to titrate per protocol. Jassi every 6min. [facility]. FREDERIC ROCK DO 07/18/2022 1:24 AM Cat I with moderate variability and spon accels for Twin A. Cat I with moderate variability and spon accels for Twin B. Pit @8cc/hr. Plan for AROM after epidural placement. Patient met criteria for PreEwoSF 2/2 gHTN with elevated UPC. Patient had headache that resolved with Reglan. [facility]. FREDERIC ROCK DO 07/18/2022 3:47 AM AROM of twin A at this time with scant clear fluid. FHT Cat II for twin A for isolated late decel, overall reassuring with moderate variability and accels. FHT Cat I for Twin B with moderate variability and spon accels. Pit at 8cc/hr. BP most recently normotensive. Patient comfortable with epidural. Continue to monitor. Sve per RN 6cm, stretching to a 7cm. Cat II for periods of minimal variability but overall moderate variability and spon accels throughout. Pit @14cc/hr. Jassi every 2-3min. CCM. FREDERIC ROCK DO 07/18/2022 6:41 AM Cx:780/-2 FHT: cat I/cat I [place]:q1-3min A/P: 1. IOL-Di/Di twins FHR cat I with moderate variability, spontaneous accels, normal baseline, no significant decels. Head feels asynclitic with more cervix on maternal right side. Patient repositioned. Pitocin at 14cc/hr. Continue to titrate per protocol. BP's normotensive to mild range. Continue to monitor. Cx: Defer FHT: Cat I/Cat I [place]: q 2 min A/P: 1. IOL-Di/Di Twins/PrEwoSF: Both babies cat I. Epidural redosed at 1100. Pt comfortable at this time. No feeling any more pressure. BP normotensive to mild range. Pit @ 16cc/hr, titrate per protocol. CCM. Cervix 7-8/80/-2 FHT cat I/cat I [place]: q1-3 min FHT cat I/cat I. Cervix feels swollen on maternal right side. Will order benadryl. Pit at 16cc/hr, titrate per protocol. Discussed hip release with RN, will continue position changes. Cervix 8/90/-1, FHT cat I/cat I, jassi q 2-3 min. Cervix feels less swollen, significantly different from prior exam. Pit at 16 ml/hr, titrate per protocol. Pt repositioned. CCM. Cx: Defer FHT: Cat I/Cat I [place]: q 5 min A/P: 1. IOL-Di/Di Twins, PreEwoSF: Both babies Cat I. Pt resting at this time. Will plan for recheck at next position change. Some coupling of contractions noted. Pitocin @ 18 ml/hr, titrate per protocol. BP mild range. CCM. Cx:10/100/+1 FHP: OA FHT: Cat I/Cat I [place]:q 2-3 min A/P: 1. IOL-Di/Di Twins, PreEwoSF: Both babies cat I. Pt is complete and 0->+1 station. Very comfortable, not feeling the urge to push. States that she only pushed for 20 minutes with her first baby. A has just started and given that she has to deliver in the OR, will let her labor down for a bit prior to taking her back for delivery as long as both babies remain Cat I and she is comfortable. Pt agreeable with this plan. Pit @ 18cc/hr. BP mild range. CCM. Pt taken to the back and started pushing. Pt with two SVDs, please see delivery summary for details. [facility] 07-18-2022 Note Patient: Catalina fernandez Procedure Information Date: 07/17/22 Procedure: Labor Analgesia Relevant Problems Neuro/Psych (+) Depression affecting Clinical information reviewed: Allergies Meds Physical Exam Airway Mallampati: II TM distance: >3 FB Neck ROM: full Mouth Open: normalendotracheal tube not in place Cardiovascular Dental Pulmonary Abdominal Anesthesia Plan ASA 2 epidural The patient is a current smoker. Anesthetic plan and risks discussed with patient and spouse. Use of blood products discussed with who consented to blood products. Patient is NPO: full stomach Additional Equipment Requests [facility] 07-18-2022 Note Obstetrical History and Physical CHIEF COMPLAINT: IOL-Di/Di HISTORY OF PRESENT ILLNESS: The patient is a 26 y.o. female at 38w0d OB History 3 Para 1 Term 1 AB 1 Living 1 SAB IAB 1 Ectopic Multiple Live Births 1 Patient presents with a chief complaint as above and is being admitted for induction Denies DFM/VB/LOF/MILLER/EpigastricPain/Visu al changes Estimated Due Date: Estimated Date of Delivery: 07/31/22 PC-01 HARDSTOP. Current EGA is 38w0d Is this patient being delivered between 15s0t-85j1i weeks with an acceptable medical indication (obstetric, maternal, and/or )? YES: This patient is between 00p4f-94l2t and DOES have an acceptable indication(s) for delivery: (micky all that apply) OBSTETRIC INDICATIONS: Twin , dichorionic and diamniotic, INDICATIONS: N/A: indications not applicable to this patient. See obstetrical or maternal, N/A: maternal indications not applicable for this patient. See or obstetrical CARE: Complications: Di/Di Depression Anemia PAST OB HISTORY: OB History Para Term AB Living 3 1 1 1 1 SAB IAB Ectopic Multiple Live Births 1 1 # Outcome Date GA Lbr Greg/2nd Weight Sex Delivery Anes PTL Lv 3 Current 2 Term 01/09/19 39w4d 22:58 / 00:45 7 lb 1.2 oz (3.21 kg) F Vag-Spont EPI N MIRYAM 1 IAB 2018 Detailed OB History G1 SAB G2 TSVD G3 Current Past Medical History: Past Medical History: Diagnosis Date Anemia Mental disorder depression Migraines Raynaud's disease Past Surgical History: Past Surgical History: Procedure Laterality Date ADENOIDECTOMY INDUCED N/A 2018 TONSILLECTOMY TONSILLECTOMY AND ADENOIDECTOMY (HISTORICAL) WISDOM TOOTH EXTRACTION Allergies: Lactose intolerance (gi) and Rondec-d [chlophedianol-pseudoephedrine] Social History: Social History Socioeconomic History Marital status: Single Spouse name: Not on file Number of children: Not on file Years of education: Not on file Highest education level: Not on file Occupational History Not on file Tobacco Use Smoking status: Never Smokeless tobacco: Never Vaping Use Vaping Use: Never used Substance and Sexual Activity Alcohol use: Not Currently Drug use: Yes Frequency: 3.0 times per week Types: Marijuana Sexual activity: Not Currently Other Topics Concern Not on file Social History Narrative Not on file Social Determinants of Health Financial Resource Strain: Not on file Food Insecurity: Not on file Transportation Needs: No Transportation Needs Lack of Transportation (Medical): No Lack of Transportation (Non-Medical): No Physical Activity: Not on file Stress: Not on file Social Connections: Not on file Intimate Partner Violence: Not on file Housing Stability: Unknown Unable to Pay for Housing in the Last Year: No Number of Places Lived in the Last Year: Not on file Unstable Housing in the Last Year: No Family History: Family History Problem Relation Name Age of Onset Lung cancer Paternal Grandfather Throat cancer Maternal Grandfather Lymphoma Maternal Grandfather Breast cancer Mother's Sister Medications Prior to Admission: Medications Prior to Admission Medication Sig Dispense Refill Last Dose aspirin 81 MG EC tablet Take 1 tablet (81 mg) by mouth in the morning. (Patient not taking: Reported on 07/17/2022) 30 tablet 11 Unknown calcium carbonate (Tums) 500 MG chewable tablet Chew 500 mg as needed for indigestion or heartburn. 07/17/2022 ferrous sulfate (FerrouSul) 325 (65 Fe) MG tablet Take 1 tablet (325 mg) by mouth 2 times daily. 60 tablet 3 07/17/2022 omeprazole (PriLOSEC) [address] capsule Take 20 mg by mouth every morning (before breakfast). Do not crush or chew. 07/16/2022 Vit-Fe Fumarate-FA ( VITAMIN PO) Take by mouth. 07/16/2022 REVIEW OF SYSTEMS: Const: Negative HEENT: Negative Resp: Negative CVS: Negative GI: Negative : Negative MSK: Negative Breast: Negative Skin: Negative Heme/Lymph:Negative Endo: Negative Neuro: Negative Psych: Negative PHYSICAL EXAM: Vitals: 07/17/22 2144 Resp: 20 Temp: 36.8 ?C (98.3 ?F) TempSrc: Oral SpO2: 99% Weight: 166 lb 3.2 oz (75.4 kg) Height: 5' 5 (1.651 m) General appearance: awake, alert, cooperative, no apparent distress, and appears stated age Neurologic: Awake, alert, oriented to name, place and time. Lungs: No increased work of breathing, good air exchange Abdomen: Soft, non tender, gravid, consistent with her gestational age Sterile Speculum Exam: Membranes: Intact HSV Lesions:not applicable Cervix: 3/80/-2 Contraction frequency: q 5min Labs: CBC: Lab Results Component Value Date WBC 8.5 07/17/2022 RBC 4.12 07/17/2022 HGB 11.0 (L) 07/17/2022 HCT 34.0 (L) 07/17/2022 MCV 82.3 07/17/2022 MCH 26.7 07/17/2022 MCHC 32.5 07/17/2022 RDW 23.2 (H) 07/17/2022 (more content not included)... [facility] 07-17-2022 History and physical note Obstetrical History and Physical CHIEF COMPLAINT: IOL-Di/Di HISTORY OF PRESENT ILLNESS: The patient is a 26 y.o. female at 38w0d OB History 3 Para 1 Term 1 AB 1 Living 1 SAB IAB 1 Ectopic Multiple Live Births 1 Patient presents with a chief complaint as above and is being admitted for induction Denies DFM/VB/LOF/MILLER/EpigastricPain/Visu al changes Estimated Due Date: Estimated Date of Delivery: 07/31/22 PC-01 HARDSTOP. Current EGA is 38w0d Is this patient being delivered between 35z1a-86x9x weeks with an acceptable medical indication (obstetric, maternal, and/or )? YES: This patient is between 18x6m-57m4k and DOES have an acceptable indication(s) for delivery: (micky all that apply) OBSTETRIC INDICATIONS: Twin , dichorionic and diamniotic, INDICATIONS: N/A: indications not applicable to this patient. See obstetrical or maternal, N/A: maternal indications not applicable for this patient. See or obstetrical CARE: Complications: Di/Di Depression Anemia PAST OB HISTORY: OB History Para Term AB Living 3 1 1 1 1 SAB IAB Ectopic Multiple Live Births 1 1 # Outcome Date GA Lbr Greg/2nd Weight Sex Delivery Anes PTL Lv 3 Current 2 Term 01/09/19 39w4d 22:58 / 00:45 7 lb 1.2 oz (3.21 kg) F Vag-Spont EPI N MIRYAM 1 IAB 2018 Detailed OB History G1 SAB G2 TSVD G3 Current Past Medical History: Past Medical History: Diagnosis Date Anemia Mental disorder depression Migraines Raynaud's disease Past Surgical History: Past Surgical History: Procedure Laterality Date ADENOIDECTOMY INDUCED N/A 2018 TONSILLECTOMY TONSILLECTOMY AND ADENOIDECTOMY (HISTORICAL) WISDOM TOOTH EXTRACTION Allergies: Lactose intolerance (gi) and Rondec-d [chlophedianol-pseudoephedrine] Social History: Social History Socioeconomic History Marital status: Single Spouse name: Not on file Number of children: Not on file Years of education: Not on file Highest education level: Not on file Occupational History Not on file Tobacco Use Smoking status: Never Smokeless tobacco: Never Vaping Use Vaping Use: Never used Substance and Sexual Activity Alcohol use: Not Currently Drug use: Yes Frequency: 3.0 times per week Types: Marijuana Sexual activity: Not Currently Other Topics Concern Not on file Social History Narrative Not on file Social Determinants of Health Financial Resource Strain: Not on file Food Insecurity: Not on file Transportation Needs: No Transportation Needs Lack of Transportation (Medical): No Lack of Transportation (Non-Medical): No Physical Activity: Not on file Stress: Not on file Social Connections: Not on file Intimate Partner Violence: Not on file Housing Stability: Unknown Unable to Pay for Housing in the Last Year: No Number of Places Lived in the Last Year: Not on file Unstable Housing in the Last Year: No Family History: Family History Problem Relation Name Age of Onset Lung cancer Paternal Grandfather Throat cancer Maternal Grandfather Lymphoma Maternal Grandfather Breast cancer Mother's Sister Medications Prior to Admission: Medications Prior to Admission Medication Sig Dispense Refill Last Dose aspirin 81 MG EC tablet Take 1 tablet (81 mg) by mouth in the morning. (Patient not taking: Reported on 07/17/2022) 30 tablet 11 Unknown calcium carbonate (Tums) 500 MG chewable tablet Chew 500 mg as needed for indigestion or heartburn. 07/17/2022 ferrous sulfate (FerrouSul) 325 (65 Fe) MG tablet Take 1 tablet (325 mg) by mouth 2 times daily. 60 tablet 3 07/17/2022 omeprazole (PriLOSEC) [address] capsule Take 20 mg by mouth every morning (before breakfast). Do not crush or chew. 07/16/2022 Vit-Fe Fumarate-FA ( VITAMIN PO) Take by mouth. 07/16/2022 REVIEW OF SYSTEMS: Const: Negative HEENT: Negative Resp: Negative CVS: Negative GI: Negative : Negative MSK: Negative Breast: Negative Skin: Negative Heme/Lymph:Negative Endo: Negative Neuro: Negative Psych: Negative PHYSICAL EXAM: Vitals: 07/17/22 2144 Resp: 20 Temp: 36.8 C (98.3 F) TempSrc: Oral SpO2: 99% Weight: 166 lb 3.2 oz (75.4 kg) Height: 5' 5 (1.651 m) General appearance: awake, alert, cooperative, no apparent distress, and appears stated age Neurologic: Awake, alert, oriented to name, place and time. Lungs: No increased work of breathing, good air exchange Abdomen: Soft, non tender, gravid, consistent with her gestational age Sterile Speculum Exam: Membranes: Intact HSV Lesions:not applicable Cervix: 3/80/-2 Contraction frequency: q 5min Labs: CBC: Lab Results Component Value Date WBC 8.5 07/17/2022 RBC 4.12 07/17/2022 HGB 11.0 (L) 07/17/2022 HCT 34.0 (L) 07/17/2022 MCV 82.3 07/17/2022 MCH 26.7 07/17/2022 MCHC 32.5 07/17/2022 RDW 23.2 (H) 07/17/2022 PLT 157 07/17/2022 MPV 10.4 07/17/2022 Blood Type/Rh: No results found for: RH Group B Strep: No components found for: GRPBPCR Fetus: EFW: Twin A 3042g 61%, Twin B 2704g 41% Presentation: Vtx/Vtx by U/S Noriega Score: NA 0 1 2 3 Position Posterior Mid Anterior - Consistency Firm Medium Soft - Effacement 0-30% 40-50% 60-70% 80% or > Dilation 0cm 1-2cm 3-4cm 5cm or > Station -3 -2 -1, 0 +1, +2 LABOR DELIVERY ??? SCD's ONLY (labor through ambulation) SCD's PLUS Prophylactic Anticoagulation until discharge SCD's PLUS Prophylactic Anticoagulation for 6 weeks SCD's PLUS Therapeutic Anticoagulation for 6 weeks Vaginal Delivery [] BMI ? 40 kg/m2 Delivery All patients Vaginal Delivery [] BMI ? 40 kg/m2 AND [] Antepartum hospitalization ? 72 hours within the past month Delivery 1 Major Risk Factor: [] BMI ? 35 kg/m2 [] Low Risk Thrombophilia [] PPH+RBCs, IR, or operation [] Infection+Antibiotics [] Antepartum hospitalization ? 72 hours within the past month [] PMH: Sickle Cell, SLE, Cardiac Dz, Active IBD, Active Cancer, Nephrotic Syndrome OR 2 Minor Risk Factors: [] Multiple gestation [] Age > 40 [] PPH ? 1,000cc [] (+)FMH of VTE [] Smoker [] Preeclampsia [] BMI ? 40 kg/m2 AND [] Low Risk Thrombophilia OR ANY OF THE FOLLOWING: [] High Risk Thrombophilia without prior VTE [] Low Risk Thrombophilia with (+)FMH of VTE [] Any single prior VTE ANY OF THE FOLLOWING: [] Already on LMWH/UFH [] Multiple prior VTE [] High Risk Thrombophilia with prior VTE Low Risk Thrombophilia: FVL (heterozygous), Prothrombin (heterozygous), Protein C, Protein S High Risk Thrombophilia: FVL (homozygous), Prothrombin (homozygous), FVL+Prothrombin (heterozygous), Antithrombin III, APLS ASSESSMENT AND PLAN: 1. IOL-Di/Di Admission: Admit to L&D FHR: Category 1 Celestone: not indicated Pain control plan: desires epidural Delivery Plan: Pitocin GBS: GBS negative, No indication for GBS prophylaxis LARC: Declines Intrapartum SCDs: Not Indicated VTE Prophylaxis: Not Indicated Di/Di Twins -EFW Twin A 3042 61%, Twin B 2704g 41% growth US 2/3 -BPP 07/16 8/8 tHTN -BP mild range on admission -PreE labs pending Depression -Mood stable -Not on meds Discussed with Dr Reyes, who agrees with plan. FREDERIC ROCK DO 07/17/2022, 10:36 PM [employer] Phone: 07-17-2022 History and physical note Obstetrical History and Physical CHIEF COMPLAINT: IOL-Di/Di HISTORY OF PRESENT ILLNESS: The patient is a 26 y.o. female at 38w0d OB History 3 Para 1 Term 1 AB 1 Living 1 SAB IAB 1 Ectopic Multiple Live Births 1 Patient presents with a chief complaint as above and is being admitted for induction Denies DFM/VB/LOF/MILLER/EpigastricPain/Visu al changes Estimated Due Date: Estimated Date of Delivery: 07/31/22 PC-01 HARDSTOP. Current EGA is 38w0d Is this patient being delivered between 60e1k-56k5h weeks with an acceptable medical indication (obstetric, maternal, and/or )? YES: This patient is between 40d0p-53g0t and DOES have an acceptable indication(s) for delivery: (micky all that apply) OBSTETRIC INDICATIONS: Twin , dichorionic and diamniotic, INDICATIONS: N/A: indications not applicable to this patient. See obstetrical or maternal, N/A: maternal indications not applicable for this patient. See or obstetrical CARE: Complications: Di/Di Depression Anemia PAST OB HISTORY: OB History Para Term AB Living 3 1 1 1 1 SAB IAB Ectopic Multiple Live Births 1 1 # Outcome Date GA Lbr Greg/2nd Weight Sex Delivery Anes PTL Lv 3 Current 2 Term 01/09/19 39w4d 22:58 / 00:45 7 lb 1.2 oz (3.21 kg) F Vag-Spont EPI N MIRYAM 1 IAB 2018 Detailed OB History G1 SAB G2 TSVD G3 Current Past Medical History: Past Medical History: Diagnosis Date Anemia Mental disorder depression Migraines Raynaud's disease Past Surgical History: Past Surgical History: Procedure Laterality Date ADENOIDECTOMY INDUCED N/A 2018 TONSILLECTOMY TONSILLECTOMY AND ADENOIDECTOMY (HISTORICAL) WISDOM TOOTH EXTRACTION Allergies: Lactose intolerance (gi) and Rondec-d [chlophedianol-pseudoephedrine] Social History: Social History Socioeconomic History Marital status: Single Spouse name: Not on file Number of children: Not on file Years of education: Not on file Highest education level: Not on file Occupational History Not on file Tobacco Use Smoking status: Never Smokeless tobacco: Never Vaping Use Vaping Use: Never used Substance and Sexual Activity Alcohol use: Not Currently Drug use: Yes Frequency: 3.0 times per week Types: Marijuana Sexual activity: Not Currently Other Topics Concern Not on file Social History Narrative Not on file Social Determinants of Health Financial Resource Strain: Not on file Food Insecurity: Not on file Transportation Needs: No Transportation Needs Lack of Transportation (Medical): No Lack of Transportation (Non-Medical): No Physical Activity: Not on file Stress: Not on file Social Connections: Not on file Intimate Partner Violence: Not on file Housing Stability: Unknown Unable to Pay for Housing in the Last Year: No Number of Places Lived in the Last Year: Not on file Unstable Housing in the Last Year: No Family History: Family History Problem Relation Name Age of Onset Lung cancer Paternal Grandfather Throat cancer Maternal Grandfather Lymphoma Maternal Grandfather Breast cancer Mother's Sister Medications Prior to Admission: Medications Prior to Admission Medication Sig Dispense Refill Last Dose aspirin 81 MG EC tablet Take 1 tablet (81 mg) by mouth in the morning. (Patient not taking: Reported on 07/17/2022) 30 tablet 11 Unknown calcium carbonate (Tums) 500 MG chewable tablet Chew 500 mg as needed for indigestion or heartburn. 07/17/2022 ferrous sulfate (FerrouSul) 325 (65 Fe) MG tablet Take 1 tablet (325 mg) by mouth 2 times daily. 60 tablet 3 07/17/2022 omeprazole (PriLOSEC) [address] capsule Take 20 mg by mouth every morning (before breakfast). Do not crush or chew. 07/16/2022 Vit-Fe Fumarate-FA ( VITAMIN PO) Take by mouth. 07/16/2022 REVIEW OF SYSTEMS: Const: Negative HEENT: Negative Resp: Negative CVS: Negative GI: Negative : Negative MSK: Negative Breast: Negative Skin: Negative Heme/Lymph:Negative Endo: Negative Neuro: Negative Psych: Negative PHYSICAL EXAM: Vitals: 07/17/22 2144 Resp: 20 Temp: 36.8 C (98.3 F) TempSrc: Oral SpO2: 99% Weight: 166 lb 3.2 oz (75.4 kg) Height: 5' 5 (1.651 m) General appearance: awake, alert, cooperative, no apparent distress, and appears stated age Neurologic: Awake, alert, oriented to name, place and time. Lungs: No increased work of breathing, good air exchange Abdomen: Soft, non tender, gravid, consistent with her gestational age Sterile Speculum Exam: Membranes: Intact HSV Lesions:not applicable Cervix: 3/80/-2 Contraction frequency: q 5min Labs: CBC: Lab Results Component Value Date WBC 8.5 07/17/2022 RBC 4.12 07/17/2022 HGB 11.0 (L) 07/17/2022 HCT 34.0 (L) 07/17/2022 MCV 82.3 07/17/2022 MCH 26.7 07/17/2022 MCHC 32.5 07/17/2022 RDW 23.2 (H) 07/17/2022 PLT 157 07/17/2022 MPV 10.4 07/17/2022 Blood Type/Rh: No results found for: RH Group B Strep: No components found for: GRPBPCR Fetus: EFW: Twin A 3042g 61%, Twin B 2704g 41% Presentation: Vtx/Vtx by U/S Noriega Score: NA 0 1 2 3 Position Posterior Mid Anterior - Consistency Firm Medium Soft - Effacement 0-30% 40-50% 60-70% 80% or > Dilation 0cm 1-2cm 3-4cm 5cm or > Station -3 -2 -1, 0 +1, +2 LABOR DELIVERY ??? SCD's ONLY (labor through ambulation) SCD's PLUS Prophylactic Anticoagulation until discharge SCD's PLUS Prophylactic Anticoagulation for 6 weeks SCD's PLUS Therapeutic Anticoagulation for 6 weeks Vaginal Delivery [] BMI ? 40 kg/m2 Delivery All patients Vaginal Delivery [] BMI ? 40 kg/m2 AND [] Antepartum hospitalization ? 72 hours within the past month Delivery 1 Major Risk Factor: [] BMI ? 35 kg/m2 [] Low Risk Thrombophilia [] PPH+RBCs, IR, or operation [] Infection+Antibiotics [] Antepartum hospitalization ? 72 hours within the past month [] PMH: Sickle Cell, SLE, Cardiac Dz, Active IBD, Active Cancer, Nephrotic Syndrome OR 2 Minor Risk Factors: [] Multiple gestation [] Age > 40 [] PPH ? 1,000cc [] (+)FMH of VTE [] Smoker [] Preeclampsia [] BMI ? 40 kg/m2 AND [] Low Risk Thrombophilia OR ANY OF THE FOLLOWING: [] High Risk Thrombophilia without prior VTE [] Low Risk Thrombophilia with (+)FMH of VTE [] Any single prior VTE ANY OF THE FOLLOWING: [] Already on LMWH/UFH [] Multiple prior VTE [] High Risk Thrombophilia with prior VTE Low Risk Thrombophilia: FVL (heterozygous), Prothrombin (heterozygous), Protein C, Protein S High Risk Thrombophilia: FVL (homozygous), Prothrombin (homozygous), FVL+Prothrombin (heterozygous), Antithrombin III, APLS ASSESSMENT AND PLAN: 1. IOL-Di/Di Admission: Admit to L&D FHR: Category 1 Celestone: not indicated Pain control plan: desires epidural Delivery Plan: Pitocin GBS: GBS negative, No indication for GBS prophylaxis LARC: Declines Intrapartum SCDs: Not Indicated VTE Prophylaxis: Not Indicated Di/Di Twins -EFW Twin A 3042 61%, Twin B 2704g 41% growth US 07/03 -BPP 07/16 01/05 tHTN -BP mild range on admission -PreE labs pending Depression -Mood stable -Not on meds Discussed with Dr Reyes, who agrees with plan. FREDERIC ROCK DO 07/17/2022, 10:36 PM documented in this encounter [facility] 07-17-2022 Plan of care note Problem: Vaginal or Section Goal: and maternal status remain reassuring during the process Outcome: Progressing Problem: Pain - Adult Goal: Verbalizes/displays adequate comfort level or baseline comfort level Outcome: Progressing Problem: Infection - Adult Goal: Absence of infection at discharge Outcome: Progressing Goal: Absence of infection during hospitalization Outcome: Progressing Goal: Absence of fever/infection during anticipated neutropenic period Outcome: Progressing Problem: Safety - Adult Goal: Free from fall injury Outcome: Progressing Problem: Discharge Planning Goal: Discharge to home or other facility with appropriate resources Outcome: Progressing [facility] 07-16-2022 Telephone encounter Note S: Patient 's mother spoke with [employer] nurse regarding needing FMLA B: Onset of symptoms/concern Patient is due tomorrow. Pt's mother is concerned that the paper work for the FMLA is not been completed. A: Mother is calling for the patient. R: Patient;s mother understands care advice. Home care advised, The Father of the twins will need to call his employer and will need to reach out to the office during business hours. No further needs at this time. Patient's mother's instructed to call back with new or worsening symptoms. Reason for Disposition [1] Caller requesting NON-URGENT health information AND [2] PCP's office is the best resource Protocols used: Information Only Call - No [id number] [facility] 07-16-2022 Miscellaneous Notes S: Patient 's mother spoke with [employer] nurse regarding needing FMLA B: Onset of symptoms/concern Patient is due tomorrow. Pt's mother is concerned that the paper work for the FMLA is not been completed. A: Mother is calling for the patient. R: Patient;s mother understands care advice. Home care advised, The Father of the twins will need to call his employer and will need to reach out to the office during business hours. No further needs at this time. Patient's mother's instructed to call back with new or worsening symptoms. Reason for Disposition [1] Caller requesting NON-URGENT health information AND [2] PCP's office is the best resource Protocols used: Information Only Call - No [id number] documented in this encounter [facility] 07-16-2022 Evaluation + Plan note Associated Problem(s): Dichorionic diamniotic twin in second trimester Patient scheduled for IOL tomorrow at 38 weeks, had BPP 6 days ago, not on schedule today. Patient is feeling both babies move normal, FHR for both heard today. Discussed FM and kick counts and when to go to triage. Reviewed IOL process, already 3 cm so will only need pitocin and AROM Reviewed options for delivery of second twin if flips to breech after A delivers, breech extraction vs . Patient will discuss further with provider front end developer designer during induction. [facility] 07-16-2022 Miscellaneous Notes Associated Problem(s): Dichorionic diamniotic twin in second trimester Patient scheduled for IOL tomorrow at 38 weeks, had BPP 6 days ago, not on schedule today. Patient is feeling both babies move normal, FHR for both heard today. Discussed FM and kick counts and when to go to triage. Reviewed IOL process, already 3 cm so will only need pitocin and AROM Reviewed options for delivery of second twin if flips to breech after A delivers, breech extraction vs . Patient will discuss further with provider front end developer designer during induction. documented in this encounter [facility] 07-16-2022 History of Present illness Narrative PLAN: Dichorionic diamniotic twin in second trimester Patient scheduled for IOL tomorrow at 38 weeks, had BPP 6 days ago, not on schedule today. Patient is feeling both babies move normal, FHR for both heard today. Discussed FM and kick counts and when to go to triage. Reviewed IOL process, already 3 cm so will only need pitocin and AROM Reviewed options for delivery of second twin if flips to breech after A delivers, breech extraction vs . Patient will discuss further with provider front end developer designer during induction. ASSESSESMENT: Diagnosis Plan 1. Dichorionic diamniotic twin in third trimester She is here for 37w6d OB visit. Denies cramping, leaking of fluid, or bleeding PHYSICAL EXAM: BP 133/88 Wt 165 lb (74.8 kg) LMP (LMP Unknown) BMI 27.46 kg/m I have reviewed her pertinent history, lab results, medications and problem list. See episode for any changes. Well appearing, Alert & oriented Skin warm & dry Normal range of motion in all extremities. Abdomen soft nontender Normal resp effort Dolly Saldivar MD 07/16/22 No follow-ups on file. documented in this encounter [facility] 07-03-2022 Hospital Discharge instructions Priya Dao DO - 07/03/2022 7:27 PM EST Follow up appointment with your doctor/aquaculture farm manager - Keep next scheduled appointment Activity - Normal Activity Call your doctor/aquaculture farm manager if you have: - leaking fluid - vaginal bleeding - regular contractions: Every 5 minutes or closer for one hour - decreased movement - worsening abdominal (belly) pain - headache, blurry vision, increased swelling, upper abdominal pain If you are going home with contractions that are uncomfortable/painful- we recommend these coping strategies: rhythmic breathing, hydrotherapy, imagery or visualization, gentle massage, walking and changing your position. Treatment Verification: Catalina Marvin was assessed on Labor and Delivery for a related visit on 07/03/22 . Priya Dao DO [facility] documented in this encounter [facility] 07-03-2022 History of Present illness Narrative Images from the original note were not included. The patient is a 26 y.o. 36w0d. OB History 3 Para 1 Term 1 AB 1 Living 1 SAB IAB 1 Ectopic Multiple Live Births 1 She is here for her third iron infusion. Iron Deficit (0.24 x Weight in kg prior to x Hgb deficit ([place] vs actual) + 500mg) = 538 Todays Dose: 138 (Maximum Dose 200mg) Remaining dose: 0 mg FHT Cat I/Cat I Patient to come back for subsequent infusion between 24hrs to one week from today Priya Dao DO 07/03/2022 7:06 PM documented in this encounter [facility] 07-03-2022 Evaluation + Plan note Associated Problem(s): Dichorionic diamniotic twin in second trimester 07/03/22 Pt would like to labor as twins are vtx x2. Baby A EFW >baby B. Discussed IOL at 38 weeks. Will need induction papers signed next week. CA [facility] 07-03-2022 Miscellaneous Notes Associated Problem(s): Dichorionic diamniotic twin in second trimester 07/03/22 Pt would like to labor as twins are vtx x2. Baby A EFW >baby B. Discussed IOL at 38 weeks. Will need induction papers signed next week. CA documented in this encounter [facility] 07-03-2022 History of Present illness Narrative A chief green officer was offered to be present during her exam. The patient: declined Routine Office Visit: 3rd trimester 07/03/22 HPI: Catalina Marvin is a 26 y.o. who presents for routine OB visit at 36w0d. SAPNA: Estimated Date of Delivery: 07/31/22 She denies CTX, LOF, DFM, VB PHYSICAL EXAM: Assessment Movement: Present Vitals Weight: 162 lb (73.5 kg), BP: 126/77 Well appearing, Alert & oriented Skin warm & dry Normal range of motion in all extremities. Abdomen soft nontender Normal resp effort ASSESSMENT: Diagnosis Plan 1. Encounter for supervision of other normal , third trimester Group B Strep Screen PCR US biophysical profile wo non stress testing 2. Dichorionic diamniotic twin in second trimester US biophysical profile wo non stress testing PLAN: Dichorionic diamniotic twin in second trimester 07/03/22 Pt would like to labor as twins are vtx x2. Baby A EFW >baby B. Discussed IOL at 38 weeks. Will need induction papers signed next week. CA Orders placed today: Orders Placed This Encounter Procedures Group B Strep Screen PCR US biophysical profile wo non stress testing Follow Up: 07/10/2022 Genesis Polk MD 07/03/22 documented in this encounter [facility] 07-01-2022 Telephone encounter Note Name of caller: Catalina Contact phone number: [phone] Relationship to Patient: patient Provider: Dr. Polk Practice: [facility] Chief Complaint/Reason for Call: Patient Catalina calling in and states that she does not want the appointments cancelled. Patient is still coming for her appointment on Wednesday07-03-2022 for U/S and AISHWARYA. Best time of day caller can be reached: Any Patient advised that office/PCP has 24-48 business hours to return their call: N/A [facility] 07-01-2022 Miscellaneous Notes Name of caller: Catalina Contact phone number: [phone] Relationship to Patient: patient Provider: Dr. Polk Practice: [facility] Chief Complaint/Reason for Call: Patient Catalina calling in and states that she does not want the appointments cancelled. Patient is still coming for her appointment on Wednesday07-03-2022 for U/S and AISHWARYA. Best time of day caller can be reached: Any Patient advised that office/PCP has 24-48 business hours to return their call: N/A Name of caller: zulay Contact phone number: [phone] Relationship to Patient: family member patient and mother Provider: Jakob Practice: [facility] Chief Complaint/Reason for Call: Pt mother calling because she needs the appointments for Wednesday cancelled due to pt's not having FMLA paperwork to miss work. Please advise. Best time of day caller can be reached: Any Patient advised that office/PCP has 24-48 business hours to return their call: Yes, pt needs the ultrasound as soon as possible. Please contact her to get this rescheduled rip Name of caller: Catalina Marvin Contact phone number: [phone] Relationship to Patient: patient Provider: Jakob Practice: [facility] Chief Complaint/Reason for Call: Pt called to cancel her US appt today for her TWINS. growth, BPP and AISHWARYA. She has another US on 07/10/2022 and the next availability for an US is 07/06/2022 at [place]. Routine Visit on 07/03/2022 was not canceled. Will provider like pt to come in before 07/10/2022 for an US? Please advise. Best time of day caller can be reached: any Patient advised that office/PCP has 24-48 business hours to return their call: Yes documented in this encounter [facility] 07-01-2022 Telephone encounter Note Name of caller: zulay Contact phone number: [phone] Relationship to Patient: family member patient and mother Provider: Jakob Practice: [facility] Chief Complaint/Reason for Call: Pt mother calling because she needs the appointments for Wednesday cancelled due to pt's not having FMLA paperwork to miss work. Please advise. Best time of day caller can be reached: Any Patient advised that office/PCP has 24-48 business hours to return their call: [facility] 07-01-2022 Telephone encounter Note Yes, pt needs the ultrasound as soon as possible. Please contact her to get this rescheduled rip [facility] Work Phone: 07-01-2022 Telephone encounter Note Name of caller: Catalina Ambrizter Contact phone number: [phone] Relationship to Patient: patient Provider: Jakob Practice: [place] Chief Complaint/Reason for Call: Pt called to cancel her US appt today for her TWINS. growth, BPP and AISHWARYA. She has another US on 07/10/2022 and the next availability for an US is 07/06/2022 at [place]. Routine Visit on 07/03/2022 was not canceled. Will provider like pt to come in before 07/10/2022 for an US? Please advise. Best time of day caller can be reached: any Patient advised that office/PCP has 24-48 business hours to return their call: Yes [facility] 06-29-2022 Hospital Discharge instructions Christel Saldivar MD - 06/29/2022 10:18 PM EST Follow up appointment with your doctor/aquaculture farm manager - Keep next scheduled appointment Activity - Normal Activity Call your doctor/aquaculture farm manager if you have: - leaking fluid - vaginal bleeding - regular contractions: More than 6 contractions in one hour - decreased movement - worsening abdominal (belly) pain - headache, blurry vision, increased swelling, upper abdominal pain If you are going home with contractions that are uncomfortable/painful- we recommend these coping strategies: rhythmic breathing, hydrotherapy, imagery or visualization, gentle massage, walking and changing your position. Treatment Verification: Catalina Marvin was assessed on Labor and Delivery for a related visit on 06/29/22 . Christel Saldivar MD [facility] documented in this encounter [facility] 06-29-2022 History of Present illness Narrative Images from the original note were not included. The patient is a 26 y.o. 35w3d. OB History 3 Para 1 Term 1 AB 1 Living 1 SAB IAB 1 Ectopic Multiple Live Births 1 She is here for her second iron infusion. Iron Deficit (0.24 x Weight in kg prior to x Hgb deficit ([place] vs actual) + 500mg) = 338 Todays Dose: 200 (Maximum Dose 200mg) Remaining dose: 138 mg FHT Cat I / Cat I Patient to come back for subsequent infusion between 24hrs to one week from today documented in this encounter [facility] 06-25-2022 Telephone encounter Note Patients mother is calling in and wants an update on her daughters FMLA papers and what her daughter should be doing. Daughter had spoken to a nurse this morning and she was given instructions. Mother wants to know what is in her daughters chart as she feels her daughter is not being taken care of. Mother states her daughter can not afford to keep going to appointments and to triage as she is 50 miles away from here. It is noted that her daughter has a US scheduled at 345 today. Mother is asking what appointments her daughter has scheduled and when they are. Mother states she is going to be a grandmother and she should be privledged to all information. Reason for Disposition [1] Caller requesting NON-URGENT health information AND [2] PCP's office is the best resource Protocols used: Information Only Call - No [id number] [facility] 06-25-2022 Miscellaneous Notes Patients mother is calling in and wants an update on her daughters FMLA papers and what her daughter should be doing. Daughter had spoken to a nurse this morning and she was given instructions. Mother wants to know what is in her daughters chart as she feels her daughter is not being taken care of. Mother states her daughter can not afford to keep going to appointments and to triage as she is 50 miles away from here. It is noted that her daughter has a US scheduled at 345 today. Mother is asking what appointments her daughter has scheduled and when they are. Mother states she is going to be a grandmother and she should be privledged to all information. Reason for Disposition [1] Caller requesting NON-URGENT health information AND [2] PCP's office is the best resource Protocols used: Information Only Call - No [id number] documented in this encounter [facility] 06-25-2022 Telephone encounter Note S [facility]. Kaitlyn CHOWDHURY RN returning call to pt at [phone]. A Pt states she is 34 weeks with twins and last night she rec'd a iron transfusion for her low iron. Pt started vomiting after infusion but was sent home. Pt has had over 6 episodes of vomiting since yesterday. Pt states she feels very weak and she passed out this morning when she got up to go to the BR. Pt did not hit her head or abdomen and thinks she only passed out for a few mins. Pt has only kept a few sips of water down this morning. Denies fever, chest pain, SOB, vaginal bleeding, LOF. +FM - both babies. Pt states she can hardly walk. R Pt to go back to Triage now for eval. Pt's will take her. Pt to call back if any further ques or concerns. Reason for Disposition SEVERE vomiting (e.g., > 6 times / day) and present > 8 hours Answer Assessment - Initial Assessment Questions 1. VOMITING SEVERITY: How many times have you vomited in the past 24 hours? - MILD: 1 - 2 times/day - MODERATE: 3 - 5 times/day, decreased oral intake without significant weight loss or symptoms of dehydration - SEVERE: 6 or more times/day, vomits everything or nearly everything, with significant weight loss, symptoms of dehydration 6 times 2. ONSET: When did the vomiting begin? Last night with iron infusion at 1900 3. FLUIDS: What fluids or food have you vomited up today? Are you able to keep any liquids down? Waffles caused vomiting. Sip of water at 9:20 - no vomiting 4. TREATMENT: What have you been doing so far to treat this? Trying to increase fluids 5. DEHYDRATION: When was the last time you urinated? Are you feeling lightheaded? Weight loss? This morning 6. : How many weeks are you? How has the been going? 34 weeks 7. SAPNA: What date are you expecting to deliver? EDC 323 8. MEDICATIONS: What medications are you taking? (e.g., vitamins, iron) PNV and Iron 9. OTHER SYMPTOMS: Do you have any other symptoms? Dizziness and lightheaded; Protocols used: - Morning Sickness (Nausea and Vomiting of )-ADULT-OH [facility] 06-25-2022 Miscellaneous Notes S Pt [facility]. B LUCIANA RN returning call to pt at [phone]. A Pt states she is 34 weeks with twins and last night she rec'd a iron transfusion for her low iron. Pt started vomiting after infusion but was sent home. Pt has had over 6 episodes of vomiting since yesterday. Pt states she feels very weak and she passed out this morning when she got up to go to the BR. Pt did not hit her head or abdomen and thinks she only passed out for a few mins. Pt has only kept a few sips of water down this morning. Denies fever, chest pain, SOB, vaginal bleeding, LOF. +FM - both babies. Pt states she can hardly walk. R Pt to go back to Triage now for eval. Pt's will take her. Pt to call back if any further ques or concerns. Reason for Disposition SEVERE vomiting (e.g., > 6 times / day) and present > 8 hours Answer Assessment - Initial Assessment Questions 1. VOMITING SEVERITY: How many times have you vomited in the past 24 hours? - MILD: 1 - 2 times/day - MODERATE: 3 - 5 times/day, decreased oral intake without significant weight loss or symptoms of dehydration - SEVERE: 6 or more times/day, vomits everything or nearly everything, with significant weight loss, symptoms of dehydration 6 times 2. ONSET: When did the vomiting begin? Last night with iron infusion at 1900 3. FLUIDS: What fluids or food have you vomited up today? Are you able to keep any liquids down? Waffles caused vomiting. Sip of water at 9:20 - no vomiting 4. TREATMENT: What have you been doing so far to treat this? Trying to increase fluids 5. DEHYDRATION: When was the last time you urinated? Are you feeling lightheaded? Weight loss? This morning 6. : How many weeks are you? How has the been going? 34 weeks 7. SAPNA: What date are you expecting to deliver? EDC 3-23 8. MEDICATIONS: What medications are you taking? (e.g., vitamins, iron) PNV and Iron 9. OTHER SYMPTOMS: Do you have any other symptoms? Dizziness and lightheaded; Protocols used: - Morning Sickness (Nausea and Vomiting of )-ADULT-[place] documented in this encounter [facility] 06-24-2022 History of Present illness Narrative Images from the original note were not included. The patient is a 26 y.o. 34w5d. OB History 3 Para 1 Term 1 AB 1 Living 1 SAB IAB 1 Ectopic Multiple Live Births 1 She is here for her first iron infusion. Iron Deficit (0.24 x Weight in kg prior to x Hgb deficit ([place] vs actual) + 500mg) = 538 Todays Dose: 200 (Maximum Dose 200mg) Remaining dose: 338 mg FHT Cat I /Cat I Patient to come back for subsequent infusion between 24hrs to one week from today JARRED SIMON DO 06/24/2022 9:35 PM documented in this encounter [facility] 06-24-2022 Telephone encounter Note Mother called to follow up regarding infusion at [place]. Advised in process however this may take several days. Mother advised daughter is feeling weak. Mother advised pt needs to report to triage at [facility] as soon as she can. Mother agreed and will have her daughter report there. Her will take her as soon as he is off work. [facility] 06-24-2022 Miscellaneous Notes Mother called to follow up regarding infusion at [place]. Advised in process however this may take several days. Mother advised daughter is feeling weak. Mother advised pt needs to report to triage at [facility] as soon as she can. Mother agreed and will have her daughter report there. Her will take her as soon as he is off work. Received infusion form from [facility].Scanned to media. This will require a prior authorization . Will route to Dr. Saldivar to complete the form. Will need an icd and procedure code before prior authorization can be completed. Spoke with [place] infusion center. They will fax the order to the office. Will fax back once completed. Mother notified. Name of caller: Zulay Contact phone number: [phone] Relationship to Patient: family member patient and mother Provider: Dr. Saldivar Practice: [facility] Location Chief Complaint/Reason for Call: Pts mother is calling again to check on the status of their request for pt to have infusion done at [facility] (see nurse triage message from 06.23.2022) She states that yesterday when they spoke she was given the wrong fax number and needs to update that to . She states that this needs done rip. Please advise. Best time of day caller can be reached: Any Patient advised that office/PCP has 24-48 business hours to return their call: No documented in this encounter [facility] 06-24-2022 Telephone encounter Note Received infusion form from [facility].Scanned to media. This will require a prior authorization . Will route to Dr. Saldivar to complete the form. Will need an icd and procedure code before prior authorization can be completed. [facility] 06-24-2022 Telephone encounter Note Spoke with [place]. They will fax the order to the office. Will fax back once completed. Mother notified. [employer] 06-24-2022 Telephone encounter Note Name of caller: Zulay Contact phone number: [phone] Relationship to Patient: family member patient and mother Provider: Dr. Saldivar Practice: [facility] Location Chief Complaint/Reason for Call: Pts mother is calling again to check on the status of their request for pt to have infusion done at [facility] (see nurse triage message from 06.23.2022) She states that yesterday when they spoke she was given the wrong fax number and needs to update that to . She states that this needs done rpi. Please advise. Best time of day caller can be reached: Any Patient advised that office/PCP has 24-48 business hours to return their call: No [employer] 06-23-2022 Telephone encounter Note S: Patient's mom spoke with [facility] nurse regarding patient iron infusion. B: Onset of symptoms/concern today. A: Patient's mom reports they did not receive call back from office regarding having iron infusion at [facility]. Patient would like to have the procedure tonight. Patient not with caller unable to fully triage. R: Dr. Saldivar messaged about above advises I would recommend she follow up with the nurses tomorrow during office hours and she can do the transfusion later. Not all hospital ED or L&Ds will have the same capability to do the infusions so our nurses will check to see if this is even possible prior to her going in. Patient's mom notified and understands care advice. No further needs at this time. Patient instructed to call back with new or worsening symptoms. [employer] 06-23-2022 Miscellaneous Notes S: Patient's mom spoke with [facility] nurse regarding patient iron infusion. B: Onset of symptoms/concern today. A: Patient's mom reports they did not receive call back from office regarding having iron infusion at [facility]. Patient would like to have the procedure tonight. Patient not with caller unable to fully triage. R: Dr. Saldivar messaged about above advises I would recommend she follow up with the nurses tomorrow during office hours and she can do the transfusion later. Not all hospital ED or L&Ds will have the same capability to do the infusions so our nurses will check to see if this is even possible prior to her going in. Patient's mom notified and understands care advice. No further needs at this time. Patient instructed to call back with new or worsening symptoms. S: Patient's mom spoke with [facility] nurse regarding patient SAPNA 07/30/22 B: Onset of symptoms for couple days. A: Seen in the ER yesterday at [facility] Mom asking if she can get her iron infusion can be done at [facility], , fax [phone]. Mom reports she is very disoriented d/t iron being low and with twins. Was to get it down at [facility] and [place] is closer for her. Called the patient: She states that [place] is an hour away, that hospital, is 10 minutes away , patient feels very tired, no SOB R: Spoke with Elina at the office, and will send encounter to the MD to review and call the patient back. Patient's mom understands care advice. No further needs at this time. Patient's mom instructed to call back with new or worsening symptoms. Reason for Disposition Caller has URGENT medicine question about med that PCP or specialist prescribed and triager unable to answer question Protocols used: Medication Question [id number] documented in this encounter [facility] 06-23-2022 Telephone encounter Note Reason for Disposition Caller has already spoken with another triager or PCP AND has further questions AND triager able to answer questions. Protocols used: No Contact or Duplicate Contact [id number] [facility] 06-23-2022 Miscellaneous Notes Reason for Disposition Caller has already spoken with another triager or PCP AND has further questions AND triager able to answer questions. Protocols used: No Contact or Duplicate Contact [id number] documented in this encounter [facility] 06-23-2022 Telephone encounter Note Error [facility] 06-23-2022 Miscellaneous Notes Error documented in this encounter [facility] 06-23-2022 Telephone encounter Note S: Patient's mom spoke with [facility] nurse regarding patient SAPNA 07/30/22 B: Onset of symptoms for couple days. A: Seen in the ER yesterday at [facility] Mom asking if she can get her iron infusion can be done at [facility], , fax [phone]. Mom reports she is very disoriented d/t iron being low and with twins. Was to get it down at [facility] and [place] is closer for her. Called the patient: She states that [place] is an hour away, that hospital, is 10 minutes away , patient feels very tired, no SOB R: Spoke with Elina at the office, and will send encounter to the MD to review and call the patient back. Patient's mom understands care advice. No further needs at this time. Patient's mom instructed to call back with new or worsening symptoms. Reason for Disposition Caller has URGENT medicine question about med that PCP or specialist prescribed and triager unable to answer question Protocols used: Medication Question [id number] [facility] 06-23-2022 Telephone encounter Note Message released to patient as written. Patient's further questions if applicable: no Were all questions from office addressed or relayed to the patient from encounter: yes [facility] 06-23-2022 Miscellaneous Notes Message released to patient as written. Patient's further questions if applicable: no Were all questions from office addressed or relayed to the patient from encounter: yes Left message to return call ----- Message from Dolly Saldivar MD sent at 06/23/2022 10:35 AM EST ----- Let pt know she passed her glucola. Her hgb 8.7, which is lower then what it was earlier in . I would advise an iron infusion at triage. She can go anytime. Typically she will need to get 2-3 infusions over a few days- weeks time documented in this encounter [facility] 06-23-2022 Telephone encounter Note Left message to return call [facility] 06-23-2022 Telephone encounter Note ----- Message from Dolly Saldivar MD sent at 06/23/2022 10:35 AM EST ----- Let pt know she passed her glucola. Her hgb 8.7, which is lower then what it was earlier in . I would advise an iron infusion at triage. She can go anytime. Typically she will need to get 2-3 infusions over a few days- weeks time [facility] 06-22-2022 Hospital Discharge instructions Donna Gray MD - 06/22/2022 3:21 PM EST Follow up appointment with your doctor/aquaculture farm manager - Keep next scheduled appointment Activity - Normal Activity Call your doctor/aquaculture farm manager if you have: - leaking fluid - vaginal bleeding - regular contractions: More than 6 contractions in one hour - decreased movement - worsening abdominal (belly) pain - headache, blurry vision, increased swelling, upper abdominal pain If you are going home with contractions that are uncomfortable/painful- we recommend these coping strategies: rhythmic breathing, hydrotherapy, imagery or visualization, gentle massage, walking and changing your position. Treatment Verification: Catalina Marvin was assessed on Labor and Delivery for a related visit on [email or web address]. Donna Gray MD [facility] documented in this encounter [facility] 06-22-2022 History of Present illness Narrative Images from the original note were not included. Department of Obstetrics and Gynecology Labor and Delivery Triage Note CHIEF COMPLAINT: Pain between contractions HISTORY OF PRESENT ILLNESS: The patient is a 26 y.o. 34w3d with twins presenting for pain in the low abdomen that radiates into the groin. She states that this pain is mainly present between contractions, which have been occurring since earlier this AM. She states that her contractions are >20 minutes apart. The contractions are not painful and she is able to continue about her day. They are accompanied with back pain when she lays down. OB History 3 Para 1 Term 1 AB 1 Living 1 SAB IAB 1 Ectopic Multiple Live Births 1 Patient presents with a chief complaint as above. Denies DFM/VB/LOF Estimated Due Date: Estimated Date of Delivery: 07/31/22 PAST MEDICAL HISTORY: Past Medical History: Diagnosis Date Anemia Mental disorder depression Migraines Raynaud's disease PAST SURGICAL HISTORY: Past Surgical History: Procedure Laterality Date ADENOIDECTOMY INDUCED N/A 2018 TONSILLECTOMY TONSILLECTOMY AND ADENOIDECTOMY (HISTORICAL) TONSILLECTOMY AND ADENOIDECTOMY (HISTORICAL) WISDOM TOOTH EXTRACTION SOCIAL HISTORY: Social History Socioeconomic History Marital status: Single Tobacco Use Smoking status: Never Smokeless tobacco: Never Vaping Use Vaping Use: Never used Substance and Sexual Activity Alcohol use: Not Currently Drug use: Yes Frequency: 3.0 times per week Types: Marijuana Sexual activity: Not Currently MEDICATIONS: No current facility-administered medications for this encounter. CARE: Complicated by: twins, Depression, Anxiety REVIEW OF SYSTEMS: Pertinent items are noted in HPI. APPEARANCE: Pain: No PHYSICAL EXAM: Vital Signs: VS wnl-reviewed/Respirations normal effort Vitals: 06/22/22 1406 06/22/22 1430 06/22/22 1500 BP: 118/73 Pulse: 98 100 99 Resp: 18 Temp: 36.9 C (98.4 F) TempSrc: Oral Abdomen: soft, gravid, nontender, nondistended, no abnormal masses, no epigastric pain Uterus: gravid/non-tender LE Edema: trace Speculum Exam: no pooling of fluid seen, vaginal discharge physiologic in appearance, wet prep results: no pathogens heart rate: Category I; Category 1 Cervix: Closed Contraction frequency: irregular, every 10-25 minutes Membranes: Intact TRIAGE COURSE: Patient with exam as above. Low concern for PTL as patient is closed, contractions are infrequent and non-painful. FHT Cat 1 in A and Cat 1 in B. Fetus Vertex/Vertex on BSUS. Pain consistent with round ligament pain. Belly band advised. ESSION: Threatened Pre-Term Labor and Round Ligament Pain Pain assessment and plan: None DISCUSSED WITH [facility] PROVIDER: Dr. Lucero DISPOSITION: Discharge to Home Associated attestation - Andre Foreman III, MD - 06/22/2022 3:28 PM EST Hospital Care (Independent): I independently saw and evaluated the patient. I agree with the findings and plan of care as documented in the resident's note. documented in this encounter [facility] 06-22-2022 Telephone encounter Note S: Patient called the clinical access center with complaint of Pt is 34 wk's 3 days preg w/ twins. Pt is having severe pain in between contractions. B: Ongoing SAPNA 07/30/22, denies vaginal bleeding or discharge A: Patient c/o has been having contractions off and on but shooting pain 10/10 in between the contractions she states it is very severe pain. Advised to go to labor and delivery states she will go to [facility] R: [facility] labor and delivery Message to the office for review by the provider and needs recommendation from Provider for treatment going forward. Reason for Disposition MODERATE-SEVERE abdominal pain Protocols used: - Labor - [id number] [facility] 06-22-2022 Miscellaneous Notes S: Patient called the clinical access center with complaint of Pt is 34 wk's 3 days preg w/ twins. Pt is having severe pain in between contractions. B: Ongoing SAPNA 07/30/22, denies vaginal bleeding or discharge A: Patient c/o has been having contractions off and on but shooting pain 10/10 in between the contractions she states it is very severe pain. Advised to go to labor and delivery states she will go to [facility] R: [facility] labor and delivery Message to the office for review by the provider and needs recommendation from Provider for treatment going forward. Reason for Disposition MODERATE-SEVERE abdominal pain Protocols used: - Labor - [id number] documented in this encounter [facility] 06-19-2022 Hospital Discharge instructions Frederic Rock DO - 06/19/2022 7:41 PM EST Follow up appointment with your doctor/aquaculture farm manager - Keep next scheduled appointment Activity - Normal Activity Call your doctor/aquaculture farm manager if you have: - leaking fluid - vaginal bleeding - regular contractions: More than 6 contractions in one hour - decreased movement - worsening abdominal (belly) pain - headache, blurry vision, increased swelling, upper abdominal pain If you are going home with contractions that are uncomfortable/painful- we recommend these coping strategies: rhythmic breathing, hydrotherapy, imagery or visualization, gentle massage, walking and changing your position. Treatment Verification: Catalina Marvin was assessed on Labor and Delivery for a related visit on 06/19/22 . FREDERIC ROCK DO [facility] documented in this encounter [facility] 06-19-2022 History of Present illness Narrative Department of Obstetrics and Gynecology Labor and Delivery Triage Note CHIEF COMPLAINT: Variable decelerations in office HISTORY OF PRESENT ILLNESS: The patient is a 26 y.o. 34w0d. OB History 3 Para 1 Term 1 AB 1 Living 1 SAB IAB 1 Ectopic Multiple Live Births 1 Patient presents with a chief complaint as above. Patient is 34 w 0 d, with Di/di twins. She was sent in from the office after Baby B had two audible decelerations. She denies DFM/VB/LOF/CTX. Estimated Due Date: Estimated Date of Delivery: 07/31/22 PAST MEDICAL HISTORY: Past Medical History: Diagnosis Date Anemia Mental disorder depression Migraines Raynaud's disease PAST SURGICAL HISTORY: Past Surgical History: Procedure Laterality Date ADENOIDECTOMY INDUCED N/A 2017 TONSILLECTOMY TONSILLECTOMY AND ADENOIDECTOMY (HISTORICAL) TONSILLECTOMY AND ADENOIDECTOMY (HISTORICAL) WISDOM TOOTH EXTRACTION SOCIAL HISTORY: reports that she has never smoked. She has never used smokeless tobacco. She reports that she does not currently use alcohol. She reports current drug use. Frequency: 3.00 times per week. Drug: Marijuana. MEDICATIONS: Prior to Admission medications Medication Sig Start Date End Date Taking? Authorizing Provider aspirin 81 MG EC tablet Take 1 tablet (81 mg) by mouth in the morning. 04/08/22 04/08/23 Mark Dowd MD calcium carbonate (Tums) 500 MG chewable tablet Chew 500 mg as needed for indigestion or heartburn. Historical Provider, ferrous sulfate (FerrouSul) 325 (65 Fe) MG tablet Take 1 tablet (325 mg) by mouth 2 times daily. 05/28/22 09/25/22 Mark Dowd MD omeprazole (PriLOSEC) [address] capsule Take 20 mg by mouth every morning (before breakfast). Do not crush or chew. Historical Provider, ondansetron (Zofran) 4 MG tablet Take 1 tablet (4 mg) by mouth every 6 hours as needed for nausea or vomiting. Patient not taking: Reported on 06/19/2022 04/03/22 Ramona Isabel, EMBOSSER OPERATOR - CNM Vit-Fe Fumarate-FA ( VITAMIN PO) Take by mouth. Historical Provider, CARE: Complicated by: anemia REVIEW OF SYSTEMS: Pertinent items are noted in HPI. APPEARANCE: Pain: No PHYSICAL EXAM: Vital Signs: VS wnl-reviewed/Respirations normal effort Vitals: 06/19/22 1720 BP: 125/76 BP Location: Left arm Patient Position: Sitting Pulse: 86 Resp: 18 Temp: 36.8 C (98.2 F) TempSrc: Oral Abdomen: soft, NT, ND, no rebound/guarding Uterus: gravid/non-tender LE Edema: trace Speculum Exam: defer heart rate: Category I Cervix: defer Contraction frequency: none RESULTS: NST: Reactive GENERAL LABS: No results found for this or any previous visit (from the past 24 hour(s)). TRIAGE COURSE: VSS. VTX/VTX on BSUS. [facility] Marion Mckoy, DO 06/19/2022 5:39 PM Cat I FHT. No decels noted. Will send home with return precautions. FREDERIC ROCK, DO 06/19/2022 7:40 PM IMPRESSION: Reactive NST , Cat I FHT Pain assessment and plan: None DISCUSSED WITH [facility] PROVIDER: Dr. Dowd DISPOSITION: Discharge to Home Associated attestation - Aleisha Bertrand MD - 06/19/2022 7:47 PM EST Hospital Care (Independent): I independently saw and evaluated the patient. I agree with the findings and plan of care as documented in the resident's note. documented in this encounter [facility] 06-19-2022 Evaluation + Plan note Associated Problem(s): care, antepartum Reviewed si/sx of labor, FM and kick counts, and when to go to L&D. Does not need to call office before going to triage. [facility] 06-19-2022 Miscellaneous Notes Associated Problem(s): care, antepartum Reviewed si/sx of labor, FM and kick counts, and when to go to L&D. Does not need to call office before going to triage. Associated Problem(s): Dichorionic diamniotic twin in second trimester Patient not scheduled for BPP today and US unavailable. On doppler, one of the babies was 155, the other 145 with two audible variables to the 120s. Sent to triage for monitoring Will schedule out weekly BPP/AISHWARYA Briefly discussed CD vs labor. Patient thinks she would like to try labor if continue to both be vtx, but more detailed discussion will need to be done in coming weeks- (since variable heard, we cut delivery conversation short to send her to triage). Associated Problem(s): Anemia during taking iron, feels lightheaded at times, will recheck hgb and potential IV iron if needed Advised increasing hydration and using compression stockings documented in this encounter [facility] 06-19-2022 Evaluation + Plan note Associated Problem(s): Dichorionic diamniotic twin in second trimester Patient not scheduled for BPP today and US unavailable. On doppler, one of the babies was 155, the other 145 with two audible variables to the 120s. Sent to triage for monitoring Will schedule out weekly BPP/AISHWARYA Briefly discussed CD vs labor. Patient thinks she would like to try labor if continue to both be vtx, but more detailed discussion will need to be done in coming weeks- (since variable heard, we cut delivery conversation short to send her to triage). [facility] 06-19-2022 Evaluation + Plan note Associated Problem(s): Anemia during taking iron, feels lightheaded at times, will recheck hgb and potential IV iron if needed Advised increasing hydration and using compression stockings [facility] 06-19-2022 History of Present illness Narrative PLAN: Anemia during taking iron, feels lightheaded at times, will recheck hgb and potential IV iron if needed Advised increasing hydration and using compression stockings Dichorionic diamniotic twin in second trimester Patient not scheduled for BPP today and US unavailable. On doppler, one of the babies was 155, the other 145 with two audible variables to the 120s. Sent to triage for monitoring Will schedule out weekly BPP/AISHWARYA Briefly discussed CD vs labor. Patient thinks she would like to try labor if continue to both be vtx, but more detailed discussion will need to be done in coming weeks- (since variable heard, we cut delivery conversation short to send her to triage). care, antepartum Reviewed si/sx of labor, FM and kick counts, and when to go to L&D. Does not need to call office before going to triage. ASSESSESMENT: Diagnosis Plan 1. Anemia during CBC auto differential CBC auto differential She is here for 34w0d OB visit. Denies cramping, leaking of fluid, or bleeding PHYSICAL EXAM: BP 120/77 Wt 156 lb (70.8 kg) LMP (LMP Unknown) BMI 25.96 kg/m I have reviewed her pertinent history, lab results, medications and problem list. See episode for any changes. Well appearing, Alert & oriented Skin warm & dry Normal range of motion in all extremities. Abdomen soft nontender Normal resp effort Dolly Saldivar MD 06/19/22 Follow up for AISHWARYA, BPP weekly. documented in this encounter [facility] 06-05-2022 History of Present illness Narrative Routine Office Visit 06/05/22 HPI: Catalina Ambrizter is a 26 y.o. who presents for routine OB visit at 32w0d. SAPNA: Estimated Date of Delivery: 07/31/22 She denies CTX, LOF, VB, DFM. PHYSICAL EXAM: Assessment Heart Rate: US/US, Movement: Present Vitals Weight: 150 lb (68 kg), BP: 128/80 Well appearing, Alert & oriented Skin warm & dry Normal range of motion in all extremities. Abdomen soft nontender Normal resp effort ASSESSMENT: Diagnosis Plan 1. Encounter for supervision of other normal , third trimester 2. Twin gestation, unable to determine number of placenta and number of amniotic sacs in second trimester PLAN: No problem-specific Assessment & Plan notes found for this encounter. Genesis Polk MD Orders placed today: No orders of the defined types were placed in this encounter. Follow Up: 06/19/2022 documented in this encounter [facility] 02-03-2022 Hospital Discharge instructions Domitila Suarez PA-C - 02/03/2022 5:49 PM EDT No evidence of trauma to the babies on ultrasound. Good heart rates. Lab work is unremarkable. Recommend Tylenol every 6 hours as needed for pain relief. Follow-up with your REVIEW ASSISTANT in 2 to 3 days for reevaluation. Return to the emergency department immediately if any new or worsening symptoms present. The following attachments cannot be sent through Care Everywhere.: Abdominal Pain (Serbian)documented in this encounter [facility] Phone: 02-03-2022 Miscellaneous Notes Pos HT. HCG pended. Thanks, Erin Jara RN documented in this encounter [facility] 12-11-2021 Note . MICRO - Microbiology PROCEDURE: Urine Culture [*1] SOURCE: Urine, Clean Catch BODY SITE: COLLECTED DATE/TIME: 12/09/2021 20:17 EDT RECEIVED DATE/TIME: 12/10/2021 15:15 EDT START DATE/TIME: 12/10/2021 15:15 EDT FREE TEXT SOURCE: FINAL REPORTS Final Report [] Verified Date/Time/Personnel: 12/11/2021 14:24 EDT >100,000 cfu/ml Mixed growth consistent with normal urogenital whitley. Performing Locations *1: This test was performed at: [facility], [address] [place] [address], [id number] , [facility] ([place]) 12-10-2021 Hospital Discharge instructions Patient Education 12/09/2021 22:56:07 AA Blank DI (CUSTOM) Live twin gestation with an estimated gestational age of 6 weeks 5 days based on the average crown-rump length from today's exam. The estimated delivery date is 07/30/2022. Normal appearing ovaries with normal blood flow. 1.4 cm left corpus luteal cyst. Thank you for sharing in the care of Ms. CATALINA MARVIN with us. Please Document Released: 05/17/2006 Document Revised: 05/03/2013 Document Reviewed: 05/18/2014 ExitCare Patient Information 2015 [employer], [employer]. This information is not intended to replace advice given to you by your health care provider. Make sure you discuss any questions you have with your health care provider. 12/09/2021 22:55:55 Vomiting (Adult) Vomiting (Adult) Vomiting is a common symptom that may be due to different causes. These include gastroenteritis (stomach flu), food poisoning and gastritis. There are other more serious causes of vomiting which may be hard to diagnose early in the illness. Therefore, it is important to watch for the warning signs listed below. The main danger from repeated vomiting is dehydration. This is due to excess loss of water and minerals from the body. When this occurs, your body fluids must be replaced. Home care If symptoms are severe, rest at home for the next 24 hours. Because your symptoms may be from an infection, wash your hands often and well. If soap and water are not available, use alcohol-based burner machine operator to keep from spreading the infection to others. Wash your hands for at least 20 seconds. Humming the happy birthday song twice while you wash is an easy way to make sure you've washed for 20 seconds. Wash your hands after using the toilet, before and after preparing food, before eating food, after changing a diaper, cleaning a wound, caring for a sick person, and blowing your nose, coughing, or sneezing. You should also wash your hands after caring for someone who is sick, touching pet food, or treats, and touching an animal, or animal waste. You may use acetaminophen or NSAID medicines like ibuprofen or naproxen to control fever, unless another medicine was prescribed. If you have chronic liver or kidney disease or ever had a stomach ulcer or gastrointestinal bleeding, talk with your doctor before using these medicines. Aspirin should never be used in anyone under 18 years of age who is ill with a fever. It may cause severe liver damage. Don't use NSAID medicines if you are already taking one for another condition (like arthritis) or are on aspirin (such as for heart disease, or after a stroke) Don't use tobacco and or drink alcohol, which may worsen your symptoms. If medicines for vomiting were prescribed, take as directed. Once vomiting stops, then follow these guidelines: During the first 12 to 24 hours follow the diet below: Fruit juices. Apple, grape juice, clear fruit drinks, and electrolyte replacement drinks. Beverages. Soft drinks without caffeine; mineral water (plain or flavored), decaffeinated tea and coffee. Soups. Clear broth and bouillon Desserts. Plain gelatin, ice pops, and fruit juice bars. As you feel better, you may add 6 to 8 ounces of yogurt per day. During the next 24 hours you may add the following to the above: Hot cereal, plain toast, bread, rolls, crackers Plain noodles, rice, mashed potatoes, chicken noodle or rice soup Unsweetened canned fruit such as applesauce, bananas (avoid pineapple and citrus) Limit caffeine and chocolate. No spices or seasonings except salt. During the next 24 hours: Gradually resume a normal diet, as you feel better and your symptoms lessen. Follow-up care Follow up with your healthcare provider, or as advised. When to seek medical advice Call your healthcare provider right away if any of these occur: Constant right-sided lower belly pain or increasing general belly pain Continued vomiting (unable to keep liquids down) for 24 hours Vomiting blood or coffee grounds Swollen belly Frequent diarrhea (more than 5 times a day); blood (red or black color) or mucus in diarrhea Reduced urine output or extreme thirst Weakness, dizziness or fainting Unusually drowsy or confused Fever of 100.4 F (38 C) oral or higher, or as directed Yellow color of the eyes or skin [id number] [employer]. [address] [place] [address]. All rights reserved. This information is not intended as a substitute for professional medical care. Always follow your healthcare professional's instructions. 12/09/2021 22:55:42 Possible Miscarriage (Threatened ) Possible Miscarriage (Threatened ) You may be having a miscarriage. Common signs of a miscarriage are pain and bleeding. A small amount of bleeding can be normal during the first 3 months of . Often the pain and bleeding stop, and you have a normal and baby. But heavy bleeding or severe cramping can be an early sign of miscarriage. A miscarriage means an unexpected loss of your . At this time, your healthcare provider doesn t know whether you will have a miscarriage, or if things will clear up and your will continue normally. This can be emotionally difficult. There is little that can be done to change the way you feel. But understand that miscarriages are common. About 1 or 2 out of every [address] Some even end before you know you are . This happens for a number of reasons, and usually the cause is never known. It s important you know that it is not your fault. It didn t happen because you did anything wrong. Having sex or exercising does not cause a miscarriage. These activities are usually safe unless you have pain or bleeding or your doctor tells you to stop. Even minor falls won t cause a miscarriage. Miscarriages happen because things were not developing as they were supposed to. No medicine can prevent a miscarriage. Again, understand that things are uncertain right now. You may still have some bleeding. This may be light spotting or like a period, and you may pass some tissue. You may have some cramping. This is why follow-up care is important. Home care To improve the chance of keeping your , you should take these steps: Rest in bed until the pain and bleeding stop. Don t have sex until your healthcare provider says it s OK. Use sanitary napkins instead of tampons. Don t douche. Don t take aspirin, ibuprofen, or naproxen. Don t have alcoholic or caffeinated beverages or smoke. Follow-up care Make an appointment with your doctor within the next week, or as directed. If you had an ultrasound, a radiologist will review it. You will be told of any new findings that may affect your care. Call 911 Call 911 if you have: Severe pain and very heavy bleeding Severe lightheadedness, passing out, or fainting Rapid heart rate Difficulty breathing Confusion or difficulty waking up When to seek medical advice Call your healthcare provider right away if any of these occur: Vaginal bleeding or pain that lasts for more than 3 days Heavy bleeding. This means soaking 1 new pad an hour over 3 hours. Fever of 100.4 F (38 C) or higher, or as directed by your healthcare provider Pain in your lower belly (abdomen) that gets worse Weakness or dizziness Passage of anything that resembles tissue. This would be pink or grayish membrane or solid material. Save the tissue in a clean container and bring it to your provider. [id number] [employer]. [address] [place] [address]. All rights reserved. This information is not intended as a substitute for professional medical care. Always follow your healthcare professional's instructions. Follow Up Care 12/09/2021 19:12:00 With:TYRESE DOMINGUEZ DO Address: [address] [place] [address] [address] [place] [address] [phone] When:2-4 days With:Follow up with primary care provider Address: When:2-4 days Comments:Call your OB provider to notify them of your recent ED visit. Schedule appointment as soon as possible With:Call LAVONNE Elam Pt. Refferral [phone] Address:Unknown When:2-4 days [facility] 12-09-2021 Note Discharge Instructions Thank you for allowing [facility] to assist you with your healthcare needs. The following is important discharge information regarding your hospital visit. Diagnosis from Today's Visit Nausea and vomiting Acute pelvic pain Pelvic pain Vomiting What to Do Next Instructions from Your Care Team Take Phenergan as needed for nausea. Drink plenty of fluids. Take Keflex as prescribed for asymptomatic bacteriuria. Follow-up with your REVIEW ASSISTANT or Dr. Canas of REVIEW ASSISTANT. Return the emergency department if you have worsening symptoms, unable to eat or drink, vaginal bleeding, abdominal pain, or any other care concern. No qualifying data available. Post Acute Orders No qualifying data available. You Need to Schedule the Following Appointments Follow Up with TYRESE DOMINGUEZ DO When Within 2-4 days Where: [address] [facility] [address] [place] [address]- [phone] Follow Up with Follow up with primary care provider When Within 2-4 days Why: Call your OB provider to notify them of your recent ED visit. Schedule appointment as soon as possible Where: Follow Up with Call AMB New Pt. Refferral [phone] When Within 2-4 days Allergies [facility] Medications Please ask your primary doctor or pharmacist before taking any other medication not listed, including over the counter drugs, herbal medications, vitamins and or supplements as they may interact with your home medications. What How Much When Why Instructions Last Dose New cephalexin (cephalexin 500 mg oral capsule) 1 cap by mouth Three (3) times a day Nausea and vomiting Acute pelvic pain Duration: 7 Days Printed Prescription New promethazine (promethazine 12.5 mg rectal suppository) 1 suppository(ies) in the rectum Every 6 hours as needed for as needed for nausea/vomiting Nausea and vomiting Acute pelvic pain Duration: 5 Days Printed Prescription Please take this list to your next doctor s visit. Bring all medications you take, including over the counter medications, herbals and other supplements with you to your doctor s visit. Patients and families are reminded to discard old lists and to update any records with all medication providers or retail pharmacies. Education Materials Live twin gestation with an estimated gestational age of 6 weeks 5 days based on the average crown-rump length from today's exam. The estimated delivery date is 07/30/2022. Normal appearing ovaries with normal blood flow. 1.4 cm left corpus luteal cyst. Thank you for sharing in the care of Ms. CATALINA MARVIN with us. Please Document Released: 05/17/2006 Document Revised: 05/03/2013 Document Reviewed: 05/18/2014 ExitCare Patient Information 2015 [employer], [employer]. This information is not intended to replace advice given to you by your health care provider. Make sure you discuss any questions you have with your health care provider. Vomiting (Adult) Vomiting is a common symptom that may be due to different causes. These include gastroenteritis (stomach flu), food poisoning and gastritis. There are other more serious causes of vomiting which may be hard to diagnose early in the illness. Therefore, it is important to watch for the warning signs listed below. The main danger from repeated vomiting is dehydration. This is due to excess loss of water and minerals from the body. When this occurs, your body fluids must be replaced. Home care If symptoms are severe, rest at home for the next 24 hours. Because your symptoms may be from an infection, wash your hands often and well. If soap and water are not available, use alcohol-based burner machine operator to keep from spreading the infection to others. Wash your hands for at least 20 seconds. Humming the happy birthday song twice while you wash is an easy way to make sure you've washed for 20 seconds. Wash your hands after using the toilet, before and after preparing food, before eating food, after changing a diaper, cleaning a wound, caring for a sick person, and blowing your nose, coughing, or sneezing. You should also wash your hands after caring for someone who is sick, touching pet food, or treats, and touching an animal, or animal waste. You may use acetaminophen or NSAID medicines like ibuprofen or naproxen to control fever, unless another medicine was prescribed. If you have chronic liver or kidney disease or ever had a stomach ulcer or gastrointestinal bleeding, talk with your doctor before using these medicines. Aspirin should never be used in anyone under 18 years of age who is ill with a fever. It may cause severe liver damage. Don't use NSAID medicines if you are already taking one for another condition (like arthritis) or are on aspirin (such as for heart disease, or after a stroke) Don't use tobacco and or drink alcohol, which may worsen your symptoms. If medicines for vomiting were prescribed, take as directed. Once vomiting stops, then follow these guidelines: During the first 12 to 24 hours follow the diet below: Fruit juices. Apple, grape juice, clear fruit drinks, and electrolyte replacement drinks. Beverages. Soft drinks without caffeine; mineral water (plain or flavored), decaffeinated tea and coffee. Soups. Clear broth and bouillon Desserts. Plain gelatin, ice pops, and fruit juice bars. As you feel better, you may add 6 to 8 ounces of yogurt per day. During the next 24 hours you may add the following to the above: Hot cereal, plain toast, bread, rolls, crackers Plain noodles, rice, mashed potatoes, chicken noodle or rice soup Unsweetened canned fruit such as applesauce, bananas (avoid pineapple and citrus) Limit caffeine and chocolate. No spices or seasonings except salt. During the next 24 hours: Gradually resume a normal diet, as you feel better and your symptoms lessen. Follow-up care Follow up with your healthcare provider, or as advised. When to seek medical advice Call your healthcare provider right away if any of these occur: Constant right-sided lower belly pain or increasing general belly pain Continued vomiting (unable to keep liquids down) for 24 hours Vomiting blood or coffee grounds Swollen belly Frequent diarrhea (more than 5 times a day); blood (red or black color) or mucus in diarrhea Reduced urine output or extreme thirst Weakness, dizziness or fainting Unusually drowsy or confused Fever of 100.4 F (38 C) oral or higher, or as directed Yellow color of the eyes or skin [id number] [employer]. [address] [place] [address], [place] [address]. All rights reserved. This information is not intended as a substitute for professional medical care. Always follow your healthcare professional's instructions. Possible Miscarriage (Threatened ) You may be having a miscarriage. Common signs of a miscarriage are pain and bleeding. A small amount of bleeding can be normal during the first 3 months of . Often the pain and bleeding stop, and you have a normal and baby. But heavy bleeding or severe cramping can be an early sign of miscarriage. A miscarriage means an unexpected loss of your . At this time, your healthcare provider doesn t know whether you will have a miscarriage, or if things will clear up and your will continue normally. This can be emotionally difficult. There is little that can be done to change the way you feel. But understand that miscarriages are common. About 1 or 2 out of every [address] Some even end before you know you are . This happens for a number of reasons, and usually the cause is never known. It s important you know that it is not your fault. It didn t happen because you did anything wrong. Having sex or exercising does not cause a miscarriage. These activities are usually safe unless you have pain or bleeding or your doctor tells you to stop. Even minor falls won t cause a miscarriage. Miscarriages happen because things were not developing as they were supposed to. No medicine can prevent a miscarriage. Again, understand that things are uncertain right now. You may still have some bleeding. This may be light spotting or like a period, and you may pass some tissue. You may have some cramping. This is why follow-up care is important. Home care To improve the chance of keeping your , you should take these steps: Rest in bed until the pain and bleeding stop. Don t have sex until your healthcare provider says it s OK. Use sanitary napkins instead of tampons. Don t douche. Don t take aspirin, ibuprofen, or naproxen. Don t have alcoholic or caffeinated beverages or smoke. Follow-up care Make an appointment with your doctor within the next week, or as directed. If you had an ultrasound, a radiologist will review it. You will be told of any new findings that may affect your care. Call 911 Call 911 if you have: Severe pain and very heavy bleeding Severe lightheadedness, passing out, or fainting Rapid heart rate Difficulty breathing Confusion or difficulty waking up When to seek medical advice Call your healthcare provider right away if any of these occur: Vaginal bleeding or pain that lasts for more than 3 days Heavy bleeding. This means soaking 1 new pad an hour over 3 hours. Fever of 100.4 F (38 C) or higher, or as directed by your healthcare provider Pain in your lower belly (abdomen) that gets worse Weakness or dizziness Passage of anything that resembles tissue. This would be pink or grayish membrane or solid material. Save the tissue in a clean container and bring it to your provider. 3795-4593 [employer]. [address] [facility], [place] [address]. All rights reserved. This information is not intended as a substitute for professional medical care. Always follow your healthcare professional's instructions. Additional Information VACCINATE! IT SAVES LIVES! Members of the community who have not yet received the COVID-19 vaccine and would like to receive it can visit one of [facility] vaccine clinics. There are many vaccine clinic locations within the [facility]. For locations and available times, please visit [email or web address]. It is important to note that some COVID mobile vaccine clinics are held outdoors and may be canceled in rainy or stormy conditions. To learn more about pediatric vaccinations (ages 5-11), we invite you to visit the [facility] webpage. [email or web address] To learn more about the COVID-19 vaccine, we invite you to visit the [employer] website for a list of frequently asked questions. [email or web address] [email or web address] [facility] Patient Portal Access Instructions: Stay connected with your healthcare team and access your personal medical information anytime with the [employer] Patient Portal. If you would like a full copy of your medical records please contact the [facility] Medical Records Department Wednesday through Wednesday between 8a.m. and 4:30p.m. Please follow the directions below to access the portal: 1.Access the email account you provided upon registration to the hospital.2.Look for an invitation email from [facility].3.Open the email and access the invitation link: Accept Invitation to [facility]4.Fill in the required thompson to create your account. Sign into www.[employer] with your username and password that you created in the above steps to stay up to date. You can then view a summary of results, a summary of your visits, and the ability to download your summaries to your computer or send the information securely to a physician. Remember that your healthcare information is confidential, so carefully consider who you will allow to register on the [employer] Patient Portal for access to your information. You can also access the [employer] Patient Portal on the [employer] adin. Simply click on Health Records under Health Data and then click on the [employer] [facility] logo. HOW TO SAFELY DISPOSE OF PRESCRIPTION MEDICATIONS Please use one of the following methods to safely dispose of your unused medications. 1.Use a drug disposal kit: the drug disposal pouch allows you to safely discard your old and unused drugs. Ask your nurse to give you one when you are discharged.2.Visit a local take-back location: Many local pharmacies and police departments have programs that collect old and unwanted prescription drugs. Call your local pharmacy or go to http://Sandvine.Starbak/2T1Gs1u to find one close to you.3.Make use of household items: Use cat litter or old coffee grounds to dispose medications if other options are not available. Mix your drugs with these household products, seal them in an airtight container and throw it into the garbage. Call [facility]: [phone] to be sure your drugs can be disposed of in this way. Some medicines may require a different approach.4.Never flush your medications down the toilet. IF YOU HAVE BEEN PRESCRIBED AN OPIOIDS FOR PAIN If you have been prescribed an opioid (such as hydrocodone, oxycodone or morphine), it is critical to understand the possible side effects and risks of opioid pain medications. Even when taken as directed, opioids can have several side effects including: Tolerance, meaning you might need to take more of a medication for the same pain relief. Nausea, vomiting and/or constipation. Sleepiness, dizziness, dry mouth, confusion, depression or itching. Physical dependence, meaning you have withdrawal symptoms when a medication is stopped ? this can develop within a few days. KNOW YOUR RESPONSIBILITIES It is important to know exactly how much and how often to take the opioid pain medications you are prescribed. Never take opioids in higher amounts or more often than prescribed. Do not combine opioids with alcohol or other drugs that cause drowsiness, such as benzodiazepines, also known as benzos, including diazepam and alprazolam, muscle relaxants or sleep aids. Never sell or share prescription opioids. This is illegal. Store opioids in a secure place and out of reach of others (including children, family, friends and visitors). The last page(s) of this document has been signed and retained as a CHART COPY Signatures Patient Education Materials AA Blank DI (CUSTOM) Vomiting (Adult) Possible Miscarriage (Threatened ) Medication Leaflets My discharge plan and instructions have been reviewed and explained to me and I,CATALINA MARVIN understand my current condition and have read and understand these discharge instructions. I have received a written copy of the plan/instructions. If I have questions, I am aware that I should contact my doctor. 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 In any case, your throat becomes red and sore. Your goal for self-care is to reduce your discomfort while giving your throat a chance to heal. Moisten and soothe your throat Tips include the following: Try a sip of water first thing after waking up. Keep your throat moist by drinking 6 or more glasses of clear liquids every day. Run a cool-air humidifier in your room overnight. Avoid cigarette smoke. Suck on throat lozenges, cough drops, hard candy, ice chips, or frozen fruit-juice bars. Use the sugar-free versions if your diet or medical condition requires them. Gargle to ease irritation Gargling every hour or 2 can ease irritation. Try gargling with 1 of these solutions: 1/4 teaspoon of salt in 1/2 cup of warm water An hucb-rkf-bswfgll anesthetic gargle Use medicine for more relief Sssq-mal-ejuabdk medicine can reduce sore throat symptoms. Ask your pharmacist if you have questions about which medicine to use: Ease pain with anesthetic sprays. Aspirin or an aspirin substitute also helps. Remember, never give aspirin to anyone 18 or younger, or if you are already taking blood thinners. For sore throats caused by allergies, try antihistamines to block the allergic reaction. Remember: unless a sore throat is caused by a bacterial infection, antibiotics won t help you. Prevent future sore throats Prevention tips include the following: Stop smoking or reduce contact with secondhand smoke. Smoke irritates the tender throat lining. Limit contact with pets and with allergy-causing substances, such as pollen and mold. When you re around someone with a sore throat or cold, wash your hands often to keep viruses or bacteria from spreading. Don t strain your vocal cords. Contact your healthcare provider if you have: A temperature over 101 F (38.3 C) White spots on the throat Great difficulty swallowing Trouble breathing A skin rash Recent exposure to someone else with strep bacteria Severe hoarseness and swollen glands in the neck or jaw [id number] [employer]. [address] [place] [address]. All rights reserved. This information is not intended as a substitute for professional medical care. Always follow your healthcare professional's instructions. 04/15/2021 04:03:28 Pharyngitis, Viral Viral Pharyngitis (Sore Throat) You or your child have pharyngitis (sore throat). This infection is caused by a virus. It can cause throat pain that is worse when swallowing, aching all over, headache, and fever. The infection may be spread by coughing, kissing, or touching others after touching your mouth or nose. Antibiotic medicines do not work against viruses. They are not used for treating this illness. Home care If symptoms are severe, you or your child should rest at home. Return to work or school when you or your child feel well enough. You or your child should drink plenty of fluids to prevent dehydration. Use throat lozenges or numbing throat sprays to help reduce pain. Gargling with warm salt water will also help reduce throat pain. Dissolve 1/2 teaspoon of salt in 1 glass of warm water. Children can sip on juice or a popsicle. Children 5 years and older can also suck on a lollipop or hard candy. Don t eat salty or spicy foods or give them to your child. These can be irritating to the throat. Medicines for a child: You can give your child acetaminophen for fever, fussiness, or discomfort. In babies over 6 months of age, you may use ibuprofen instead of acetaminophen. If your child has chronic liver or kidney disease or ever had a stomach ulcer or GI bleeding, talk with your child s healthcare provider before giving these medicines. Aspirin should never be used by any child under 18 years of age who has a fever. It may cause severe liver damage. Medicines for an adult: You may use acetaminophen or ibuprofen to control pain or fever, unless another medicine was prescribed for this. If you have chronic liver or kidney disease or ever had a stomach ulcer or GI bleeding, talk with your healthcare provider before using these medicines. Follow-up care Follow up with a healthcare provider or our staff if you or your child are not getting better over the next week. When to seek medical advice Call your healthcare provider right away if any of these occur: Fever as directed by your healthcare provider. For children, seek care if: oYour child is of any age and has repeated fevers above 104 F (40 C). oYour child is younger than 2 years of age and has a fever of 100.4 F (38 C) for more than 1 day. oYour child is 2 years old or older and has a fever of 100.4 F (38 C) for more than 3 days. New or worsening ear pain, sinus pain, or headache Painful lumps in the back of neck Stiff neck Lymph nodes are getting larger Can t swallow liquids, a lot of drooling, or can t open mouth wide due to throat pain Signs of dehydration, such as very dark urine or no urine, sunken eyes, dizziness Trouble breathing or noisy breathing Muffled voice New rash Other symptoms are getting worse [id number] [employer]. [address] [place] [address]. All rights reserved. This information is not intended as a substitute for professional medical care. Always follow your healthcare professional's instructions. Follow Up Care 04/15/2021 03:49:41 With:DOMINIC JIMENEZ MD Address: When:2-4 days [facility] 01-09-2019 History of Past i llness Narrative Problem Noted Date Resolved Date Normal labor 01/09/2019 01/11/2019 Overview: -GBS- -Epi in -Pit -SROM @0250 clear 35 weeks gestation of 12/08/2018 12/19/2018 Overview: Labor precautions including consistent contractions, vaginal bleeding, loss of fluid, and decreased movement discussed. Follow up as scheduled with OB provider Abdominal pain affecting 11/03/2018 12/19/2018 Overview: - SVE closed - Uterine irritability, resolved with PO hydration - PTL precautions discussed, patient voices understanding 30 weeks gestation of 11/03/2018 12/08/2018 Overview: - Cat I FHT, reactive - To follow up as scheduled Bacterial vaginosis 11/03/2018 12/19/2018 Overview: - Rx sent for flagyl Late care affecting in second trimester 08/22/2018 12/08/2018 Unspecified infection of uri nary tract in , second trimester 07/28/2018 08/22/2018 Personal history of other co mplications of , childbirth and the puerperium 07/28/2018 08/22/2018 Intrauterine 05/20/2018 9 Dog bite of finger 02/10/2018 08/22/2018 Cramping affecting , antepartum 018 08/22/2018 Hyperemesis gravidarum 09/07/2017 9 Leukocytosis 09/07/2017 08/22/2018 Mental disorder affecting in second tr imester 09/07/2017 12/08/2018 Nausea/vomiting in 08/07/2017 Overview: - s/p IVF - Improved with Zofran 15 weeks gestation of 08/05/2017 09/07/2017 documented as of this encounter (statuses as of 02/03/2022) [facility] No data available for this section [facility] Evaluation note* Diagnosis Secondary amenorrhea- Primary Absence of menstruation [facility], initial encounter- Primary Abdominal pain in , unspecified trimester documented in this encounter [facility] Work Phone: Evaluation note* Diagnosis Women's annual routine gynecological examination- Primary depression Mental disorders of mother, complicating , childbirth, or the puerperium, unspecified as to episode of care [facility] [place] [facility]* Diagnosis Encounter for supervision of other normal , third trimester- Primary Twin gestation, unable to determine number of placenta and number of amniotic sacs in second trimester [facility] [place] [facility]* Diagnosis Anemia during - Primary Anemia, antepartum [facility] [place] [facility]* Diagnosis Encounter for supervision of other normal , third trimester- Primary Dichorionic diamniotic twin in second trimester [facility] [place] [facility]* Diagnosis Dichorionic diamniotic twin in second trimester- Primary [facility] [place] [facility]* Diagnosis Encounter for supervision of other normal , third trimester- Primary Dichorionic diamniotic twin in second trimester [facility] Diagnosis Dichorionic diamniotic twin in third trimester- Primary [facility] Diagnosis Dichorionic diamniotic twin gestation- Primary (spontaneous vaginal delivery) Normal delivery Pre-eclampsia in third trimester documented [facility] [place] [facility]* Diagnosis Preeclampsia in period- Primary [facility] Diagnosis hypertension- Primary [facility] No data available for this section [facility] Progress note No data available for this section [facility] Summary Purpose Family History No Family History Records FoundNo Family History Records FoundNo Family History Records FoundNo Family History Records FoundNo Family History Records FoundNo Family History Records FoundNo Family History Records FoundNo Family History Records FoundNo Family History Records Found Advance Directives Latest Code Status on File Code Status Date Activated Date Inactivated Comments Full Code 11/09/2018 10:49 PM 11/10/2018 5:48 AM Latest Code Status on File Code Status Date Activated Date Inactivated Comments Full Code 07/21/2022 10:30 PM 07/23/2022 1:27 PM Code Status History Code Status Date Activated Date Inactivated Comments Full Code 07/17/2022 9:35 PM 07/20/2022 10:04 PM Latest Code Status on File Code Status Date Activated Date Inactivated Comments Full Code 07/17/2022 9:35 PM 07/20/2022 10:04 PM Latest Code Status on File Code Status Date Activated Date Inactivated Comments Full Code 07/21/2022 10:30 PM 07/23/2022 1:27 PM Code Status History Code Status Date Activated Date Inactivated Comments Full Code 07/17/2022 9:35 PM 07/20/2022 10:04 PM Additional Source Comments INFORMATION SOURCE (unrecogn ized section and content) DATE CREATED AUTHOR 05/03/2018 [facility] DATE CREATED AUTHOR AUTHOR'S ORGANIZ ATION 11/26/2018 [facility] DATE CREATED AUTHOR AUTHOR'S ORGANIZ ATION 03/07/2019 [facility] DATE CREATED AUTHOR AUTHOR'S ORGANIZ ATION 05/03/2020 [facility] DATE CREATED AUTHOR AUTHOR'S ORGANIZ ATION 11/07/2020 [facility] DATE CREATED AUTHOR AUTHOR'S ORGANIZ ATION 02/04/2022 [facility] DATE CREATED AUTHOR AUTHOR'S ORGANIZ ATION 02/09/2022 [facility] DATE CREATED AUTHOR AUTHOR'S ORGANIZ ATION 07/29/2022 [facility] DATE CREATED AUTHOR AUTHOR'S ORGANIZ ATION 01/05/2023 [facility] Care Team (unrecognized sect ion and content) Care Team Personnel Name: PHYSICIAN, NONE Position: Physician Member Role: Primary Care Physician Care Team Related Persons Name: NAYA MARVIN Address: Home [address] [place] [address] Care Team Personnel Name: PHYSICIAN, NONE Position: Physician Member Role: Primary Care Physician Name: ANUM Brown Position: AO RN Member Role: ED RN Name: Cailin Myers RN Position: AO RN Member Role: ED RN Name: FLORI TRENT MD Position: ED Physician Member Role: Attending Physician Address: Address: [facility] [address] [place] [address]- Care Team Related Persons Name: NAYA MARVIN Address: Home [address] [place] [address] Source Comments (unrecognize d section and content) In the event this informatio n is protected by the Federal Confidentiality of Alcohol and Drug Abuse Patient Records regulations: The Federal rules restrict any use of the information to criminally investigate or prosecute any alcohol or drug abuse patient.[facility] Reason for Visit (unrecogniz ed section and content) Reason Comments Orders Reason Comments Pelvic Pain Problem States is 15 weeks p regnant with twins and having pelvic pain Reason Onset Date Comments Other 07/21/2022 Reason Comments Annual Exam Reason Comments Routine Visit Reason Comments Extended monitoring-Baby B low FHR in of fice Reason Onset Date Comments Problem 06/22/2022 Reason Comments Back Pain Reason Onset Date Comments Results 06/23/2022 Release of Information 06/23/2022 Reason Onset Date Comments Advice Only 06/23/2022 Reason Onset Date Comments Updated fax # 06/24/2022 Reason Comments iron infusion Reason Onset Date Comments Error (VOID this visit) 06/23/2022 Reason Onset Date Comments Release of Information 06/25/2022 Reason Onset Date Comments Problem 06/25/2022 Reason Comments OP Infusion Venofer Reason Comments Routine Visit Bpp/Growth today. GBS today as well. Reason Onset Date Comments Cancelled Appointment 07/01/2022 07/01/2022 U S cancelled Reason Onset Date Comments Other 07/16/2022 Specialty Diagnoses / Procedures Referred By Duncan lundberg Referred To Contact Diagnoses Dichorionic diamniotic twin gestation Procedures . Kelvin Reyes, [address] [facility] [place] [address] [facility] [address] [place] [address] Referral ID Status Reason Start Date Expiration Date Visits Re quested Visits Authorized [id number] 1 1 Specialty Diagnoses / Procedures Referred By Contac t Referred To Contact Diagnoses Preeclampsia in period Procedures . Tiana Arenas MD [address] [facility] [place] [address] [place] [address] [facility] Antepartum [address] [place] [address] Referral ID Status Reason Start Date Expiration Date Visits Re quested Visits Authorized [id number] 1 1 Reason Comments Care Delivered 07.18.22 BP check Care Teams (unrecognized sec tion and content) Special Library Librarian Relationship Specialty Start Date End Date Luciano Shah MD [address] [place], [place] [id number] PCP - General Pediatrics 06/29/16 Special Library Librarian Relationship Specialty Start Date End Date Luciano Shah [address] [place], [place] [id number] PCP - General 01/05/17 Special Library Librarian Relationship Specialty Start Date End Date Mark Dowd MD [address] [facility] [address] [id number] PCP - General Obstetrics & Gynecology 04/20/22 Special Library Librarian Relationship Specialty Start Date End Date Mark Dowd MD [address] [facility] [address] [address] PCP - General Obstetrics & Gynecology 04/20/22 Special Library Librarian Relationship Specialty Start Date End Date Mark Dowd MD [address] [facility] [address] [place], [place] [id number] PCP - General Obstetrics & Gynecology 04/20/22 Special Library Librarian Relationship Specialty Start Date End Date Mark Dowd MD [address] [facility] [address] [place], [place] [id number] PCP - General Obstetrics & Gynecology 04/20/22 Special Library Librarian Relationship Specialty Start Date End Date Mark Dowd MD [address] [place] [address] PCP - General Obstetrics & Gynecology 04/20/22 Special Library Librarian Relationship Specialty Start Date End Date Mark Dowd MD [address] [place] [address] PCP - General Obstetrics & Gynecology 04/20/22 Special Library Librarian Relationship Specialty Start Date End Date Mark Dowd MD [address] [place] [address] PCP - General Obstetrics & Gynecology 04/20/22 Special Library Librarian Relationship Specialty Start Date End Date Mark Dowd MD [address] [facility] [place] [address] PCP - General Obstetrics & Gynecology 04/20/22 Special Library Librarian Relationship Specialty Start Date End Date Mark Dowd MD [address] [facility]. [address] [place] [address] PCP - General Obstetrics & Gynecology 04/20/22 Special Library Librarian Relationship Specialty Start Date End Date Mark Dowd MD [address] [facility] [place] [address] PCP - General Obstetrics & Gynecology 04/20/22 Special Library Librarian Relationship Specialty Start Date End Date Mark Dowd MD [address] [place] [address] PCP - General Obstetrics & Gynecology 04/20/22 Special Library Librarian Relationship Specialty Start Date End Date Mark Dowd MD [address] [place] [address] PCP - General Obstetrics & Gynecology 04/20/22 Special Library Librarian Relationship Specialty Start Date End Date Mark Dowd MD [address] [place] [address] PCP - General Obstetrics & Gynecology 04/20/22 Special Library Librarian Relationship Specialty Start Date End Date Mark Dowd MD [address] [facility] [address] [address] PCP - General Obstetrics & Gynecology 04/20/22 Special Library Librarian Relationship Specialty Start Date End Date Mark Dowd MD [address] [facility] [address] [id number] PCP - General Obstetrics & Gynecology 04/20/22 Special Library Librarian Relationship Specialty Start Date End Date Mark Dowd MD [address] [facility] [address] [address] PCP - General Obstetrics & Gynecology 04/20/22 Special Library Librarian Relationship Specialty Start Date End Date Mark Dowd MD [address] [facility] [address] [id number] PCP - General Obstetrics & Gynecology 04/20/22 Scheduled Active and Recently Administ ered Medications (unrecognized section and content) Medication Order 02/01/2022 02/02/2022 02/03/2022 acetaminophen (TYLENOL) tablet 650 mg (COMPLETED) 650 mg, Oral, ONCE, 1 dose, On Wed02/03/22 at 1715, Maximum dose of acetaminophen is 4000 mg from all sources in 24 hours. 1737 (Given - Provid er: Svetlana Francis RN) Scheduled Medication Order 06/22/2022 06/23/2022 06/24/2022 iron sucrose (Venofer) 200 mg in sodium chloride 0.9 % 100 mL IVPB (COMPLETED) 200 mg, IntraVENous, at 200 mL/hr, Administer over 30 Minutes, Once, On Wed06/24/22 at 1745, For 1 dose, Observe for signs and symptoms of hypersensitivity and/or anaphylactic-type reactions per institutional standard during and following administration. 1930 (New Bag - Prov ider: Cassidy Comer RN)2000 (Due: Stopped - Provider: Cassidy Comer RN) Scheduled Medication Order 06/27/2022 06/28/2022 06/29/2022 famotidine (Pepcid) injection 20 mg (COMPLETED) 20 mg, IntraVENous, Administer over 2 Minutes, Once, On Wed06/29/22 at 1830, For 1 dose, IV Push over minimum of 2 minutes - Dilute with 10 mL NS 1842 (Given - Provid er: Shazia Steward RN) iron sucrose (Venofer) 200 mg in sodium chloride 0.9 % 100 mL IVPB (COMPLETED) 200 mg, IntraVENous, at 100 mL/hr, Administer over 60 Minutes, Once, On Wed06/29/22 at 2000, For 1 dose, Observe for signs and symptoms of hypersensitivity and/or anaphylactic-type reactions per institutional standard during and following administration. 2008 (New Bag - Prov ider: Robert River RN)2144 (Stopped - Provider: Robert River RN) ondansetron (Zofran) injection 4 mg (COMPLETED) 4 mg, IntraVENous, Once, On Wed06/29/22 at 1830, For 1 dose 183 (Given - Provid er: Shazia Steward RN) Scheduled Medication Order 07/01/2022 07/02/2022 07/03/2022 iron sucrose (Venofer) 140 mg in sodium chloride 0.9 % 100 mL IVPB (COMPLETED) 140 mg (rounded from 138 mg), IntraVENous, at 200 mL/hr, Administer over 30 Minutes, Once, On Wed07/03/22 at 1800, For 1 dose, Observe for signs and symptoms of hypersensitivity and/or anaphylactic-type reactions per institutional standard during and following administration. 175 (New Bag - Prov ider: Tiffany Denton RN)182 (Stopped - Provider: Tiffany Denton RN) Scheduled Medication Order 07/18/2022 07/19/2022 07/20/2022 famotidine (Pepcid) injection 20 mg (CANCELED) 20 mg, IntraVENous, Administer over 2 Minutes, 2 times daily, First dose (after last modification) on Wed07/18/22 at 0415, IV or ORAL 0414 (Given - Provider: Lucy Bergman RN)2100 (Not Given - Provider: Lucy Bergman RN - Reason: Patient/family refused) ferrous sulfate tablet 325 mg 325 mg, Oral, 2 times daily with meals, First dose on 07/19/22 at 0800, , Start if Hgb less than 10. 0800 (Not Given - Provider: Nicole Lewis RN - Reason: Contraindicated)1700 (Not Given - Provider: Linda Rincon RN - Reason: Order parameters not met) 0800 (Not Given - Provider: Armando Hernandez RN - Reason: Order parameters not met)1700 (Canceled Entry - Provider: Automatic Discharge Provider - Comment: Automatically canceled at discontinue of medication order) Lidocaine 4 % patch 1 patch 1 patch, TransDERmal, Administer over 12 Hours, Daily, First dose (after last modification) on 07/18/22 at 2300, Apply patch to affected area. Patch may remain in place for up to 12 hours in any 24 hour period. 2256 (Medication Applied - Provider: Lucy Bergman RN) 0859 (Medication Removed - Provider: Nicole Lewis RN)0900 (Not Given - Provider: Nicole Lewis RN - Reason: Patient/family refused) 0900 (Not Given - Provider: Armando Hernandez RN - Reason: Patient/family refused) magnesium sulfate IVPB 4,000 mg (COMPLETED) 4,000 mg, IntraVENous, at 300 mL/hr, Administer over 20 Minutes, Once, On 07/18/22 at 2100, For 1 dose, Recommended infusion rate not to exceed 1,000 mg (milligrams) per hour. 2054 (New Bag - Provider: Lucy Bergman, ANUM)2114 (Stopped - Provider: Lucy Bergman RN) measles, mumps and rubella (MMR) vaccine 0.5 mL 0.5 mL, SubCUTAneous, Prior to discharge, Starting on 07/19/22 at 0215, For 1 dose, , Administer if Rubella non-immune or equivocal Vaccine is a vial of powder. Reconstitute with the available diluent for this vaccine. Barcode scan vaccine vial for Vaccine Record metoclopramide (Reglan) injection 10 mg (COMPLETED) 10 mg, IntraVENous, Once, On 07/18/22 at 0145, For 1 dose 0149 (Given - Provider: Lucy Bergman RN) miSOPROStol (Cytotec) tablet 1,000 mcg (COMPLETED) 1,000 mcg, Rectal, Once, On 07/18/22 at 2115, For 1 dose 2057 (Given - Provider: Lucy Bergman RN - Comment: given by diamante) morphine sulfate 4 mg (COMPLETED) 4 mg, IntraVENous, Once, On 07/18/22 at 2100, For 1 dose 2054 (Given - Provider: Lucy Bergman RN) NIFEdipine (Procardia) capsule 10 mg (COMPLETED) 10 mg, Oral, Once, On 07/18/22 at 2100, For 1 dose 2049 (Given - Provider: Lucy Bergman RN) NIFEdipine XL (Procardia XL) 24 hr tablet 30 mg (CANCELED) 30 mg, Oral, Daily, First dose on 07/18/22 at 2215, Do not crush, chew, or split. 2256 (Given - Provider: Lucy Bergman RN) 0823 (Given - Provider: Nicole Lewis RN) NIFEdipine XL (Procardia XL) 24 hr tablet 30 mg (COMPLETED) 30 mg, Oral, Once, On 07/19/22 at 1015, For 1 dose, Do not crush, chew, or split. 1024 (Given - Provider: Nicole Lewis RN) NIFEdipine XL (Procardia XL) 24 hr tablet 30 mg 30 mg, Oral, Nightly, First dose on 07/19/22 at 1830, Do not crush, chew, or split. 1829 (Given - Provider: Nicole Lewis RN) 2100 (Canceled Entry - Provider: Automatic Discharge Provider - Comment: Automatically canceled at discontinue of medication order) NIFEdipine XL (Procardia XL) 24 hr tablet 60 mg 60 mg, Oral, Daily, First dose (after last modification) on 07/20/22 at 0900, Do not crush, chew, or split. 0944 (Given - Provid er: Anahi Macedo RN) Tdap (BoostRIX) vaccine 0.5 mL 0.5 mL, IntraMUSCular, Prior to discharge, Starting on 07/19/22 at 0226, For 1 dose, If not previously administered during at 27-36 weeks as recommended by CDC. Tdap. Not to be confused with look-alike/sound-alike product DTaP. Continuous Medication Order 07/18/2022 07/19/2022 07/20/2022 lactated ringers infusion (CANCELED) 125 mL/hr, IntraVENous, Continuous, Starting on Wed07/17/22 at 2145, Pre-Delivery 1705 (Rate/Dose Change - Provider: Ella Martinez RN)1759 (Rate/Dose Change - Provider: Ella Martinez RN)1939 (Stopped - Provider: Teresa Ashraf RN) magnesium sulfate 20 GM/500ML infusion () 2 g/hr (50 mL/hr), IntraVENous, Continuous, Starting on Wed07/18/22 at 2100, For 24 hours 2114 (New Bag - Provider: Lucy Bergman RN) 0821 (New Bag - Provider: Nicole Lewis, ANUM)2122 (Stopped - Provider: Linda Rincon RN) oxytocin (Pitocin) 30 units in 500 mL infusion (CANCELED) 1-20 tramaine-units/min (1-20 mL/hr), IntraVENous, Continuous, Starting on Wed07/17/22 at 2245, Begin infusion at 1 tramaine-unit/min (1 tramaine-unit per min = 1 mL per hour) and increase by 1 tramaine-unit/min after 30 minutes. Then increase by 2 tramaine-units/min as needed, no faster than every 30 minutes, until labor is achieved. Labor is defined as contractions every 2-3 minutes with cervical changes or [place] units (MVU) greater than 200 in a 10-minute window. Maximum infusion rate: 20 tramaine-unit/min. Contact provider if maximum rate does not achieve desired response. Provider may order alternative titration goal or other clinically appropriate goal of titration rate (s). Smaller titration increments of 1 tramaine-units/min, not faster than every 30 minutes, may be used when approaching therapeutic goal. 0015 (Rate/Dose Change - Provider: Lucy Bergman RN)0100 (Rate/Dose Change - Provider: Lucy Bergman RN)0136 (Rate/Dose Change - Provider: Lucy Bergman RN)0213 (Rate/Dose Change - Provider: Lucy Bergman, RN)0459 (Rate/Dose Change - Provider: Lucy Bergman RN)0530 (Rate/Dose Change - Provider: Lucy Bergman RN)0601 (Rate/Dose Change - Provider: Lucy Bergman RN)0851 (Rate/Dose Change - Provider: Ella Martinez RN)1705 (Rate/Dose Change - Provider: Ella Martinez RN) ropivacaine (Naropin) 0.2 % (OB) epidural infusion (CANCELED) 8 mL/hr, Epidural, Continuous, Starting on 07/18/22 at 0315, Pre-Delivery, PCEA Basal Infusion 0333 (New Bag - Provider: Akash Eubanks APRN - NCR OPERATOR)1446 (New Bag - Provider: Ella Martinez RN - Comment: dual checked with Arsenio Dominguez RN) PRN Medication Order 07/18/2022 07/19/2022 07/20/2022 acetaminophen (Tylenol) tablet 650 mg (CANCELED) 650 mg, Oral, Every 6 hours PRN, mild pain (1-3), Starting on 07/17/22 at 2345, Maximum dose of acetaminophen is 4000 mg from all sources in 24 hours. 0015 (Given - Provider: Lucy Bergman RN) acetaminophen (Tylenol) tablet 650 mg 650 mg, Oral, Every 6 hours PRN, mild pain (1-3), Starting on 07/18/22 at 2155, Give in addition to any other pain medication ordered at same time for any pain indication. Maximum dose of acetaminophen is 4000 mg from all sources in 24 hours. Alternate ibuprofen and acetaminophen every 3 hours. 2206 (Given - Provider: Lucy Bergman RN) 0417 (Given - Provider: Lucy Bergman RN)1024 (Given - Provider: Nicole Lewis RN)1604 (Given - Provider: Nicole Lewis RN) 0027 (Given - Provider: Linda Rincon RN)0627 (Given - Provider: Linda Rincon RN)1449 (Given - Provider: Armando Hernandez RN) Benzocaine-Benzethonium 20-0.2 % spray Topical, As needed, pain, , Starting on 07/19/22 at 0215, , Apply to perineal area. Patient is capable and may self administer at bedside. docusate sodium (Colace) capsule 100 mg 100 mg, Oral, 2 times daily PRN, constipation, Vaginal Delivery, Starting on 07/19/22 at 0226, Do not crush or break. 0944 (Given - Provider: Anahi Macedo RN) famotidine (Pepcid) tablet 20 mg 20 mg, Oral, 2 times daily PRN, heartburn, Starting on 07/19/22 at 0215, , Renal dose per pharmacy for peptic ulcer prophylaxis. 0627 (Given - Provider: Linda Rincon, ANUM) ibuprofen tablet 600 mg 600 mg, Oral, Every 6 hours PRN, mild pain (1-3), Starting on 07/18/22 at 2155, Alternate ibuprofen and acetaminophen every 3 hours. 2206 (Given - Provider: Lucy Bergman RN) 0823 (Given - Provider: Nicole Lewis, RN)1416 (Given - Provider: Nicole Lewis RN) 0028 (Given - Provider: Linda Rincon RN)0627 (Given - Provider: Linda Rincon, ANUM)1449 (Given - Provider: Armando Hernandez RN) lanolin (Lansinoh) cream Topical, As needed, dry skin, nipple discomfort, Starting on 07/19/22 at 0215, , Apply to affected area. ondansetron (Zofran) injection 4 mg (CANCELED) 4 mg, IntraVENous, Every 6 hours PRN, nausea, vomiting, Starting on 07/17/22 at 2337, Give IV if patient is unable to take orally. 1121 (Given - Provider: Ella Martinez RN)2050 (Given - Provider: Lucy Bergman RN) ondansetron (Zofran) injection 4 mg(Linked Group 1) 4 mg, IntraVENous, Every 6 hours PRN, nausea, vomiting, Starting on 07/19/22 at 0226, 1st Line. Give IV if patient is unable to take orally. If inadequate response within 60 minutes, proceed to next-line agent or contact provider if no further options ordered. ondansetron ODT (Zofran-ODT) disintegrating tablet 4 mg(Linked Group 1) 4 mg, Oral, Every 8 hours PRN, nausea, vomiting, Starting on 07/19/22 at 0226, 1st Line. If inadequate response within 60 minutes, proceed to next-line agent or contact provider if no further options ordered. Patient should allow tablet to dissolve on tongue. Do not remove from blister pack until just before administering. oxytocin (Pitocin) 30 units in 500 mL infusion 125 tramaine-units/min (125 mL/hr), IntraVENous, Continuous PRN, Bleeding, Starting on 07/19/22 at 0140, For 48 hours, , For Immediate Post Use Only. Give after delivery of placenta and initial 30 unit bolus. Bag 2 of 2: 125cc/hr (125 mu/min) for an additional infusion of 500cc (30 units). 2038 (New Bag - Provider: Lucy Bergman, RN) 119 (Stopped - Provider: Lucy Bergman, RN) oxytocin bolus from bag 30 Units (CANCELED) 30 Units, IntraVENous, Administer over 15 Minutes, PRN, Bleeding, Starting on Wed07/17/22 at 2104, Post-Delivery, For Immediate Post Use Only. Give after delivery of placenta. Bag 1 of 2: Bolus for bag to infuse at 999 ml/hour for 15 minutes (15 units in 250cc). After initial bolus then decrease rate to 250cc/hr for 1 hour. Then discontinue. 1938 (Bolus from Bag - Provider: Lucy Bergman, RN) witch gonzález-glycerin (Tucks) pad Topical, As needed, hemorrhoids, For perineal pain or discomfort, Starting on Wed07/19/22 at 0215, , Apply to perineal area. Patient is capable and may self administer at bedside. Linked Groups Order Group 1: ondansetron ODT (Zofran-ODT) disintegrating tablet 4 mgJump to med 4 mg, Oral, Every 8 hours PRN, nausea, vomiting, Starting on 07/19/22 at 0226
1st Line. If inadequate response within 60 minutes, proceed to next-line agent or contact provider if no further options ordered. Patient should allow tablet to dissolve on tongue. Do not remove from blister pack until just before administering.
Or ondansetron (Zofran) injection 4 mgJump to med 4 mg, IntraVENous, Every 6 hours PRN, nausea, vomiting, Starting on 07/19/22 at 0226
1st Line. Give IV if patient is unable to take orally. If inadequate response within 60 minutes, proceed to next-line agent or contact provider if no further options ordered.
Scheduled Medication Order 07/21/2022 07/22/2022 07/23/2022 ferrous sulfate tablet 325 mg 325 mg, Oral, 2 times daily, First dose on Wed07/21/22 at 2245 2248 (Given - Provider: Priyanka Cobb, RN) 0838 (Given - Provider: Yisel Shabazz RN)2110 (Given - Provider: Luci Rutledge, RN) 09 (Given - Provider: Hamilton Dumas, ANUM) ketorolac (Toradol) injection 30 mg 30 mg, IntraVENous, Once, On Wed07/22/22 at 0845, For 1 dose 0845 (Not Given - Provider: Yisel Shabazz RN - Reason: Other - Comment: Ibuprofen given at 0838. See MAR.) Lidocaine 4 % patch 1 patch 1 patch, TransDERmal, Administer over 12 Hours, Daily, First dose (after last modification) on Wed07/22/22 at 0900, Apply patch to affected area. Patch may remain in place for up to 12 hours in any 24 hour period. 0900 (Not Given - Provider: Yisel Shabazz RN - Reason: Patient/family refused - Comment: pt would like to try Motrin for headache first.) 0900 (Not Given - Provider: Hamilton Dumas RN - Reason: Patient/family refused) NIFEdipine XL (Procardia XL) 24 hr tablet 30 mg 30 mg, Oral, Nightly, First dose on Wed07/21/22 at 2245, Do not crush, chew, or split. 2247 (Given - Provider: Priyanka Cobb, ANUM) 2110 (Given - Provider: Luci Rutledge, ANUM) NIFEdipine XL (Procardia XL) 24 hr tablet 60 mg 60 mg, Oral, Daily, First dose on Wed07/22/22 at 0900, Do not crush, chew, or split. 08 (Given - Provider: Yisel Shabazz RN) 09 (Given - Provider: Hamilton Dumas, ANUM) sodium chloride 0.9% (NS) flush 5-40 mL 5-40 mL, IntraVENous, Every 12 hours, First dose on Wed07/21/22 at 2245, For Line Patency: Peripheral IV = 5 mL; Midline or Central Line = 10 mL/lumen. If following IV push medication, administer flush at same rate as the IV push. Flush volume is determined by type of infusion therapy being given. For non-viscous solutions use: Peripheral IV = 5 mL Midline or Central Line = 10 mL/lumen For viscous solutions (i.e. blood components, parenteral nutrition, contrast media, or after obtaining blood sample) use: Peripheral IV = 10 mL Midline or Central Line = 20 mL/lumen 2245 (Not Given - Provider: Priyanka Cobb RN - Reason: IV Fluids Infusing) 1045 (Canceled Entry - Provider: Yisel Shabazz RN)2113 (Given - Provider: Luci Rutledge, ANUM) 1045 (Not Given - Provider: Hamilton Dumas RN - Reason: Loss of IV access) Continuous Medication Order 07/21/2022 07/22/2022 07/23/2022 magnesium sulfate 20 GM/500ML infusion (CANCELED) 2 g/hr (50 mL/hr), IntraVENous, Continuous, Starting on Wed07/21/22 at 2245, For 20 hours 2245 (Rate/Dose Verify - Provider: Priyanka Cobb RN - Comment: continued from other hospital) 0632 (New Bag - Provider: Priyanka Cobb RN)0827 (Rate/Dose Verify - Provider: Yisel Shabazz RN)1240 (Rate/Dose Verify - Provider: Yisel Shabazz RN)1629 (New Bag - Provider: Yisel Shabazz RN)1802 (Stopped - Provider: Yisel Shabazz RN) PRN Medication Order 07/21/2022 07/22/2022 07/23/2022 acetaminophen (Tylenol) tablet 1,000 mg 1,000 mg, Oral, Every 8 hours PRN, mild pain (1-3), Starting on Wed07/21/22 at 2226, Maximum dose of acetaminophen is 4000 mg from all sources in 24 hours. 2247 (Given - Provider: Priyanka Cobb RN) 0634 (Given - Provider: Priyanka Cobb RN)1633 (Given - Provider: Yisel Shabazz RN) 0450 (Given - Provider: Luci Rutledge RN) calcium carbonate (Tums) chewable tablet 500 mg 500 mg, Oral, PRN, indigestion, heartburn, Starting on Wed07/21/22 at 2227 ibuprofen tablet 600 mg 600 mg, Oral, Every 6 hours PRN, mild pain (1-3), Starting on Wed07/21/22 at 2227 0838 (Given - Provider: Yisel Shabazz, RN) lanolin (Lansinoh) cream Topical, As needed, dry skin, nipple discomfort, Starting on Wed07/21/22 at 2227, Apply to affected area. metoclopramide (Reglan) injection 10 mg(Linked Group 1) 10 mg, IntraVENous, Every 6 hours PRN, heartburn, nausea, vomiting, Headache, Starting on Wed07/21/22 at 2228, Give IV if patient is unable to take orally. 0449 (See Alternative - Provider: Priyanka Cobb RN)1245 (See Alternative - Provider: Yisel Shabazz, RN) metoclopramide (Reglan) tablet 10 mg(Linked Group 1) 10 mg, Oral, Every 6 hours PRN, MILLER, 1st line, Starting on Wed07/21/22 at 2228 0449 (Given - Provider: Priyanka Cobb RN)1245 (Given - Provider: Yisel Shabazz, RN) ondansetron (Zofran) injection 4 mg(Linked Group 2) 4 mg, IntraVENous, Every 6 hours PRN, nausea, vomiting, Starting on Wed07/21/22 at 2227, 1st Line. Give IV if patient is unable to take orally. If inadequate response within 60 minutes, proceed to next-line agent or contact provider if no further options ordered. ondansetron ODT (Zofran-ODT) disintegrating tablet 4 mg(Linked Group 2) 4 mg, Oral, Every 8 hours PRN, nausea, vomiting, Starting on Wed07/21/22 at 2227, 1st Line. If inadequate response within 60 minutes, proceed to next-line agent or contact provider if no further options ordered. Patient should allow tablet to dissolve on tongue. Do not remove from blister pack until just before administering. polyethylene glycol (PEG) 3350 (Miralax) packet 17 g 17 g, Oral, Daily PRN, constipation, Starting on Wed07/21/22 at 2228, 1st line for treatment of constipation - give scheduled if no bowel movement in past 24 hours. sodium chloride 0.9 % infusion 5-250 mL/hr, IntraVENous, PRN, if patient receiving piggyback infusions and maintenance fluids are not ordered OR KVO fluids to protect IV site / prevent frequent line interruptions / long duration, Starting on Wed07/21/22 at 2228, For piggyback infusion, administer at same rate as piggyback for a total of 25 mL. Enter 25 mL into dose field and piggyback rate into rate field of order. If piggyback is infusing at a rate less than 100 mL/hr, enter 25 mL into dose field and 100 mL/hr into rate field of order. For KVO fluids, enter rate of 20 mL/hr or less into rate field of order. sodium chloride 0.9% (NS) flush 5-40 mL 5-40 mL, IntraVENous, PRN, line care, After every IV line use, Starting on Wed07/21/22 at 2228, For Line Patency: Peripheral IV = 5 mL; Midline or Central Line = 10 mL/lumen. If following IV push medication, administer flush at same rate as the IV push. Flush volume is determined by type of infusion therapy being given. For non-viscous solutions use: Peripheral IV = 5 mL Midline or Central Line = 10 mL/lumen For viscous solutions (i.e. blood components, parenteral nutrition, contrast media, or after obtaining blood sample) use: Peripheral IV = 10 mL Midline or Central Line = 20 mL/lumen Linked Groups Order Group 1: metoclopramide (Reglan) tablet 10 mgJump to med 10 mg, Oral, Every 6 hours PRN, MILLER, 1st line, Starting on Wed07/21/22 at 2228 Or metoclopramide (Reglan) injection 10 mgJump to med 10 mg, IntraVENous, Every 6 hours PRN, heartburn, nausea, vomiting, Headache, Starting on Wed07/21/22 at 2228
Give IV if patient is unable to take orally.
Group 2: ondansetron ODT (Zofran-ODT) disintegrating tablet 4 mgJump to med 4 mg, Oral, Every 8 hours PRN, nausea, vomiting, Starting on Wed07/21/22 at 2227
1st Line. If inadequate response within 60 minutes, proceed to next-line agent or contact provider if no further options ordered. Patient should allow tablet to dissolve on tongue. Do not remove from blister pack until just before administering.
Or ondansetron (Zofran) injection 4 mgJump to med 4 mg, IntraVENous, Every 6 hours PRN, nausea, vomiting, Starting on Wed07/21/22 at 2227
1st Line. Give IV if patient is unable to take orally. If inadequate response within 60 minutes, proceed to next-line agent or contact provider if no further options ordered.
FOR RECORDS PERTAINING TO PATIENTS WHO ARE OR HAVE BEEN ENROLLED IN A CHEMICAL DEPENDENCY/SUBSTANCEABUSE PROGRAM, SOME INFORMATION MAY BE OMITTED. This clinical summary was aggregated from multiple sources. Caution should be exercised in using it in the provision of clinical care. This summary normalizes information from multiple sources, and as a consequence, information in this document may materially change the coding, format and clinical context of patient data. In addition, data may be omitted in some cases. CLINICAL DECISIONS SHOULD BE BASED ON THE PRIMARY CLINICAL RECORDS. Shareholder [employer] [facility]. provides no warranty or guarantee of the accuracy or completeness of information in this document.
[2024-12-17 20:56] LABS: Hematocrit 35.6 % (37-47); Hemoglobin 12.2 g/dL (12.0-15.0); Immature Granulocytes Count 0.030 X10^3/uL (0.0-0.0); Mean Corp Hgb Conc 34.3 g/dL (32-36); Mean Corpuscular Volume 87.7 fL (81-99); Mean Platelet Vol. 9.2 fl (6.2-12.0); NRBC Flagged by Analyzer 0 % (0-5); Platelet Count 225 K/mm3 (150-450); RBC Distribution Width CV 12.4 % (11.6-14.6); RBC Distribution Width SD 40.3 fl (35.1-43.9); Red Blood Count 4.06 M/mm3 (4.2-5.4); White Blood Count 8.6 K/mm3 (4.4-11.0)
[2024-12-17 21:32] LABS: Squamous Epithelial Cells - UA 25-50 SEEN /hpf (5-10)
[2024-12-17 21:34] LABS: Red Blood Cells-Urine 0-5 SEEN /hpf (0-5); Transitional Epithelial - Ur 0-5 SEEN /hpf (0-5)
== END 2024-12-17 23:26 | disposition home or self-care (01) ==
PROVIDERS: Emergency Provider Emergency Medicine; Referring Provider Emergency Medicine; Visit Provider Emergency Medicine
DX: R10.9 Unspecified abdominal pain (principal); R55 Syncope and collapse; N83.201 Unspecified ovarian cyst, right side
CPT/HCPCS: 36415; 74177; 80053; 81001; 83605; 83690; 84703; 85025; 93005; 96361; 96374; 96375; 99283; Q9967; A4216; J2405

== ENCOUNTER 2025-05-14 20:34 | Emergency (ER) | payer OTHER, SELFPAY ==
[2025-05-14 20:35] VITALS: BP 109/67; PULSE 106; RESP 18; TEMP 37.6; O2SAT 96; BMI 21.6
[2025-05-14] MEDS: 0.9% Normal Saline (1000mL) 1,000 ML 999 ML IV (21:24)
[2025-05-14 21:32] LABS: Hematocrit 46.3 % (37-47); Hemoglobin 15.8 g/dL (12.0-15.0); Immature Granulocytes Count 0.060 X10^3/uL (0.0-0.0); Mean Corp Hgb Conc 34.1 g/dL (32-36); Mean Corpuscular Volume 90.1 fL (81-99); Mean Platelet Vol. 10.2 fl (6.2-12.0); NRBC Flagged by Analyzer 0 % (0-5); POSITIVE DIFFERENTIAL YES; Platelet Count 292 K/mm3 (150-450); RBC Distribution Width CV 12.4 % (11.6-14.6); RBC Distribution Width SD 41.1 fl (35.1-43.9); Red Blood Count 5.14 M/mm3 (4.2-5.4); White Blood Count 15.8 K/mm3 (4.4-11.0)
--- OUTSIDE RECORDS SUMMARY | 2025-05-14 21:38 | XMS RPT_ITS | CCD ---
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 Take 1 tablet by mouth once daily. ferrous sulfate 325 mg (65 mg iron) tablet Take 1 tablet by mouth daily with breakfast. VIT/IRON FUM/FOLIC AC ( 05/31 ORAL) Take by mouth once daily. No current facility-administered medications for this visit. Allergies As of Date: 12/20/2024 Allergen Noted Reaction ANCEF [CEFAZOLIN] 11/10/2018 Hives and Itching LACTOSE 08/22/2018 GI Upset RONDEC [BROMPHENIRAMINE-PSEUDO EPH*06/29/2016 Intolerance CARBINOXAMINE 11/07/2018 Unknown PSEUDOEPHEDRINE 11/07/2018 Unknown Fully Assessed 02/02/2020 REVIEW OF SYSTEMS Abdomen: No bloating, early satiety, indigestion, or increased flatulence. No abdominal pain, nausea, vomiting, diarrhea, or constipation. Bladder: No dysuria, gross hematuria, urinary frequency, urinary urgency, or incontinence. Breast: No breast lumps, nipple d/c, overlying skin changes, redness or skin retraction. Expanded ROS: N/A Allergies and current medication updated:Yes SENSITIVE EXAM: The sensitive examination was discussed with the Patient or Patient's Authorized Workforce Planner. As applicable, any other physician, advance practice provider, medical student, or other health professional student that will be observing or involved in the sensitive examination for educational or training purposes was discussed with the Patient or Authorized Workforce Planner. The Patient or Authorized Workforce Planner has agreed to proceed with the sensitive examination. (Sensitive examination includes inspection and/or palpation of the breasts, pelvis, prostate and anorectal regions). EXAM: LMP 01/26/2020 GENERAL: pleasant, female in no apparent distress ABDOMEN: soft, non-tender, and no masses PELVIC: external genitalia normal, normal Bartholin's glands, urethra, Chokio's glands, no vulvar lesions, no cervical lesions, good vaginal support, physiologic discharge present, normal appearing perineal body and perianal region BIMANUAL: uterus normal size, shape and consistency, no adnexal masses, noting mild right adnexal tendernes and slight cx motion tendernes consistent with a ruptured ovarian cyst.: alert and oriented x3,exam grossly non-focal EXTREMITIES: normal ASSESSMENT AND PLAN: Assessment AND Plan Ovarian cyst rupture Resolving ovarian cyst UTI NSAIDS F/u for contraception Needs something beyond condoms ftft > 45m rev records with pt and discuss MD Gal Lipscomb Anthony P, MD 12/20/2024 11:19 AM Signed Exam Date Time Procedure Performing Provider Status 12/19/24 9:04 PM US Pelvis Non-OB Complete HIGINIO KIRKPATRICK (more content not included)... Normal [facility] .Auto Diffon 12-19-2024 Basophil, Absolute 0.0 10 3/mcL Normal 0.0-0.3 [facility] Comment on above: Performed By: #### B ALESSANDRA CARLSON, ANEU, GFR, CBC, ADIFF #### [address] [address] Basophils/100 WBC (Bld) 0.5 % Normal 0.0-2.5 [facility] Comment on above: Performed By: #### B ALESSANDRA CARLSON, ANEU, GFR, CBC, ADIFF #### [address] [address] Eosinophil, Absolute 0.1 10 3/mcL Normal 0.0-0.7 [facility] Comment on above: Performed By: #### B ALESSANDRA CARLSON, ANEU, GFR, CBC, ADIFF #### [address] [address] Eosinophils/100 WBC (Bld) 1.1 % Normal 0.0-6.0 [facility] Comment on above: Performed By: #### B ALESSANDRA CARLSON, ANEU, GFR, CBC, ADIFF #### [address] [address] Lymphocyte, Absolute 2.1 10 3/mcL Normal 0.9-4.3 [facility] Comment on above: Performed By: #### B ALESSANDRA CARLSON, ANEU, GFR, CBC, ADIFF #### [address] [address] Lymphocytes/100 WBC (Bld) 29.8 % Normal 20.0-40.0 [facility] Comment on above: Performed By: #### B ALESSANDRA CARLSON, ANEU, GFR, CBC, ADIFF #### [address] [address] Monocyte, Absolute 0.5 10 3/mcL Normal 0.1-1.4 [facility] Comment on above: Performed By: #### B ALESSANDRA CARLSON, ANEU, GFR, CBC, ADIFF #### [address] [address] Monocytes/100 WBC (Bld) 7.2 % Normal 2.0-13.0 [facility] Comment on above: Performed By: #### B ALESSANDRA CARLSON, ANEU, GFR, CBC, ADIFF #### [address] [place], [place] [address] Neutrophils/100 WBC (Bld) 61.4 % Normal 50.0-75.0 [facility] Comment on above: Performed By: #### B ROBYN, ALESSANDRA, ANEU, GFR, CBC, ADIFF #### [address] [place], [place] [address] .GFRon 12-19-2024 GFR/1.73 sq M.predicted among non-blacks MDRD (S/P/Bld) [Vol rate/Area] mL/min/{1.73_m2} Normal [facility] Comment on above: Result Comment: Stages of Chronic Kidney Disease (CKD) Stage Description eGFR(ml/min/1.73 sq.m.) CKD 1 Normal kidney function or >=90 normal kindney function with possible kidney damage (ex. Proteinuria) CKD 2 Kidney damage with mild loss 60-89 of kidney function CKD 3a Mild to moderate loss of kidney 45-59 function CKD 3b Moderate to severe loss of 30-44 of kindey function CKD 4 Severe loss of kidney function 15-29 CKD 5 Kidney failure <15 Note: (go live 2024) the eGFR calculation was updated to the 2020 CKD-EPI creatinine equation without a race factor to calculate the eGFR results. Performed By: #### B ROBYN, ALESSANDRA, ANEU, GFR, CBC, ADIFF #### [address] [place], [place] [address] .MDWon 12-19-2024 Monocyte Distribution Width 25.67 High 0.00-20.00 [facility] Comment on above: Result Comment: For adults in ED, MDW>20.0 may be associated with a higher risk of sepsis during the first 12hrs of hospital admission Performed By: #### B MD ROBYNW, ANEU, GFR, CBC, ADIFF #### [facility] [address] [place], [place] [address] .NEUABSon 12-19-2024 Neutrophil, Absolute 4.3 10 3/mcL Normal 2.3-8.1 [facility] Comment on above: Performed By: #### B ALESSANDRA CARLSON, ANEU, GFR, CBC, ADIFF #### [address] [address] BMPon 12-19-2024 BUN/Creatinine Ratio 13 ratio Normal 7-27 [facility] Comment on above: Performed By: #### B ALESSANDRA CARLSON, ANEU, GFR, CBC, ADIFF #### [address] [address] Creatinine [Mass/Vol] 0.68 mg/dL Normal 0.51-0.95 [facility] Comment on above: Performed By: #### B ALESSANDRA ACRLSON, ANEU, GFR, CBC, ADIFF #### [address] [address] Potassium [Moles/Vol] 4.0 mmol/L Normal 3.5-5.1 [facility] Comment on above: Performed By: #### B ALESSANDRA CARLSON, ANEU, GFR, CBC, ADIFF #### [address] [address] Calcium [Mass/Vol] 9.7 mg/dL Normal 8.4-10.2 [facility] Comment on above: Performed By: #### B ALESSANDRA CARLSON, ANEU, GFR, CBC, ADIFF #### [address] [address] Chloride [Moles/Vol] 105 mmol/L Normal 98-107 [facility] Comment on above: Performed By: #### B ALESSANDRA CARLSON, ANEU, GFR, CBC, ADIFF #### [address] [address] CO2 [Moles/Vol] 26 mmol/L Normal 22-29 [facility] Comment on above: Performed By: #### B ALESSANDRA CARLSON, ANEU, GFR, CBC, ADIFF #### [address] [address] Electrolyte Balance 12.0 mEq/L Normal 4.0-15.0 [facility] Comment on above: Performed By: #### B ALESSANDRA CARLSON, ANEU, GFR, CBC, ADIFF #### [address] [address] Glucose [Mass/Vol] 89 mg/dL Normal 70-105 [facility] Comment on above: Performed By: #### B ALESSANDRA CARLSON, ANEU, GFR, CBC, ADIFF #### [address] [address] Sodium [Moles/Vol] 143 mmol/L Normal 136-145 [facility] Comment on above: Performed By: #### B ALESSANDRA CARLSON, ANEU, GFR, CBC, ADIFF #### [place] [address] Urea nitrogen [Mass/Vol] 9 mg/dL Normal 7-18 [facility] Comment on above: Performed By: #### B ALESSANDRA CARLSON, ANEU, GFR, CBC, ADIFF #### [address] [address] CBCon 12-19-2024 Erythrocyte distribution width (RBC) [Ratio] 13.5 % Normal 11.5-15.5 [facility] Comment on above: Performed By: #### B ALESSANDRA CARLSON, ANEU, GFR, CBC, ADIFF #### [address] [address] Hematocrit (Bld) [Volume fraction] 41.8 % Normal 34.0-46.0 [facility] Comment on above: Performed By: #### B ALESSANDRA CARLSON, ANEU, GFR, CBC, ADIFF #### [address] [address] Hgb 14.1 G/dL Normal 12.0-16.0 [facility] Comment on above: Performed By: #### B ALESSANDRA CARLSON, ANEU, GFR, CBC, ADIFF #### [address] [address] MCH (RBC) [Entitic mass] 29.8 pg Normal 27.0-33.0 [facility] Comment on above: Performed By: #### B ALESSANDRA CARLSON, ANEU, GFR, CBC, ADIFF #### [address] [address] MCHC 33.6 G/dL Normal 32.0-36.0 [facility] Comment on above: Performed By: #### B ALESSANDRA CARLSON, ANEU, GFR, CBC, ADIFF #### [address] [address] MCV (RBC) [Entitic vol] 88.6 fL Normal 80.0-99.0 [facility] Comment on above: Performed By: #### B ALESSANDRA CARLSON, ANEU, GFR, CBC, ADIFF #### [place] [id number] Platelet 230 10 3/mcL Normal 150-450 [facility] Comment on above: Performed By: #### B ALESSANDRA CARLSON, ANEU, GFR, CBC, ADIFF #### [place] [address] Platelet mean volume (Bld) [Entitic vol] 8.6 fL Normal 6.6-10.5 [facility] Comment on above: Performed By: #### B ALESSANDRA CARLSON, ANEU, GFR, CBC, ADIFF #### [address] [address] RBC 4.72 10 6/mcL Normal 4.10-5.30 [facility] Comment on above: Performed By: #### B ALESSANDRA CARLSON, ANEU, GFR, CBC, ADIFF #### [address] [address] WBC 7.1 10 3/mcL Normal 4.5-10.8 [facility] Comment on above: Performed By: #### B ALESSANDRA CARLSON, ANEU, GFR, CBC, ADIFF #### [address] [address] LABORATORYOrdered By: Zully Alcala on 12-19-2024 Appearance (U) Clear (12/19/24 8:10 PM) Normal Clear AO Auto Urine SS Bacteria LM.HPF (Urine sed) [#/Area] 1 /[HPF] Invalid Interpretation Code Negative AO Auto Urine SS Bilirubin Ql (U) Small *ABN* (12/19/24 8:10 PM) Invalid Interpretation Code Negative AO Auto Urine SS Color (U) Yellow (12/19/24 8:10 PM) Normal AO Auto Urine SS Glucose Test strip (U) [Mass/Vol] Negative Normal Negative AO Auto Urine SS HCG ( test) Ql Negative (12/19/24 8:10 PM) Normal AO Manual Urine SS Hemoglobin Auto test strip (U) [Mass/Vol] Negative (12/19/24 8:10 PM) Normal Negative AO Auto Urine SS Ketones Ql (U) 40 mg/dL Invalid Interpretation Code Negative AO Auto Urine SS test (u) int Not detected Invalid Interpretation Code AO Manual Urine SS UA Leuk Est Small *ABN* (12/19/24 8:10 PM) Invalid Interpretation Code Negative AO Auto Urine SS UA Nitrite Negative (12/19/24 8:10 PM) Normal Negative AO Auto Urine SS UA pH 6.5 (12/19/24 8:10 PM) Normal 5.0 - 8.0 AO Auto Urine SS UA Protein Negative Normal Negative AO Auto Urine SS UA RBC Negative Normal 0-2 AO Auto Urine SS UA Spec Grav 1.020 (12/19/24 8:10 PM) Normal 1.015-1.025 AO Auto Urine SS UA Specimen Type Void (12/19/24 8:10 PM) Normal AO Auto Urine SS UA Squam Epithelial 5-10 /HPF Normal 0-20 AO Au to Urine SS UA Urobilinogen 1.0 E.U./dL Normal 0.2-1.0 AO Auto Urine SS WBC LM.HPF (Urine sed) [#/Area] 5-10 /HPF Invalid Interpretation Code 0-5 AO Auto Urine SS LABORATORYOrdered By: SYSTEM SYSTEM on 12-19-2024 Basophils (Bld) [#/Vol] 0.0 103/mcL Normal 0.0 - 0.3 10^3/mcL AO Workflow SS Basophils/100 WBC (Bld) 0.5 % Normal 0.0 - 2.5 % AO Workflow SS Calcium [Mass/Vol] 9.7 mg/dL Normal 8.4 - 10. 2 mg/dL AO ADM SS Chloride [Moles/Vol] 105 mmol/L Normal 98 - 10 7 mmol/L AO ADM SS CO2 [Moles/Vol] 26 mmol/L Normal 22 - 29 mmol/L AO ADM SS Creatinine [Mass/Vol] 0.68 mg/dL Normal 0.51 - 0.95 mg/dL AO ADM SS Electrolyte Balance 12.0 mEq/L Normal 4.0 - 15 .0 mEq/L AO ADM SS Eosinophil, Absolute 0.1 103/mcL Normal 0.0 - 0 .7 10^3/mcL AO Workflow SS Eosinophils/100 WBC (Bld) 1.1 % Normal 0.0 - 6.0 % AO Workflow SS Erythrocyte distribution width (RBC) [Ratio] 13.5 % Normal 11.5 - 15.5 % AO Workflow SS Estimated Glomerular Filtration Rate ml/min/1.73sqm Invalid Interpretation Code AO Chemistry S Comment on above: Interpretive Data: Stages of Chronic Kidney Disease (CKD) Stage Description eGFR(ml/min/1.73 sq.m.) CKD 1 Normal kidney function or >=90 normal kindney function with possible kidney damage (ex. Proteinuria) CKD 2 Kidney damage with mild loss 60-89 of kidney function CKD 3a Mild to moderate loss of kidney 45-59 function CKD 3b Moderate to severe loss of 30-44 of kindey function CKD 4 Severe loss of kidney function 15-29 CKD 5 Kidney failure <15 Note: (go live 2024) the eGFR calculation was updated to the 2020 CKD-EPI creatinine equation without a race factor to calculate the eGFR results. Glucose [Mass/Vol] 89 mg/dL Normal 70 - 105 mg/dL AO ADM SS Hematocrit (Bld) [Volume fraction] 41.8 % Normal 34.0 - 46.0 % AO Workflow SS Hemoglobin (Bld) [Mass/Vol] 14.1 G/dL Normal 12.0 - 16.0 G/dL AO Workflow SS Lymphocytes (Bld) [#/Vol] 2.1 103/mcL Normal 0.9 - 4.3 10^3/mcL AO Workflow SS Lymphocytes/100 WBC (Bld) 29.8 % Normal 20.0 - 40.0 % AO Workflow SS MCH (RBC) [Entitic mass] 29.8 pg Normal 27.0 - 33.0 pg AO Workflow SS MCHC 33.6 G/dL Normal 32.0 - 36.0 G/dL AO Workflow SS MCV (RBC) [Entitic vol] 88.6 fL Normal 80.0 - 99.0 fL AO Workflow SS Monocyte distribution width Auto (Bld) [Entitic vol] 25.67 1 High 0.00 - 20.00 AO Workflow SS Comment on above: Result Comment: For adults in ED, MDW>20.0 may be associated with a higher risk of sepsis during the first 12hrs of hospital admission Monocytes (Bld) [#/Vol] 0.5 103/mcL Normal 0.1 - 1.4 10^3/mcL AO Workflow SS Monocytes/100 WBC (Bld) 7.2 % Normal 2.0 - 13.0 % AO Workflow SS Neutrophils (Bld) [#/Vol] 4.3 103/mcL Normal 2.3 - 8.1 10^3/mcL AO Workflow SS Neutrophils/100 WBC (Bld) 61.4 % Normal 50.0 - 75.0 % AO Workflow SS Platelet mean volume (Bld) [Entitic vol] 8.6 fL Normal 6.6 - 10.5 fL AO Workflow SS Platelets (Bld) [#/Vol] 230 103/mcL Normal 150 - 450 10^3/mcL AO Workflow SS Potassium [Moles/Vol] 4.0 mmol/L Normal 3.5 - 5.1 mmol/L AO ADM SS RBC (Bld) [#/Vol] 4.72 106/mcL Normal 4.10 - 5.3 0 10^6/mcL AO Workflow SS Sodium [Moles/Vol] 143 mmol/L Normal 136 - 145 mmol/L AO ADM SS Urea nitrogen [Mass/Vol] 9 mg/dL Normal 7 - 18 mg/dL AO ADM SS Urea nitrogen/Creatinine [Mass ratio] 13 ratio Normal 7 - 27 ratio AO ADM SS WBC (Bld) [#/Vol] 7.1 103/mcL Normal 4.5 - 10.8 10^3/mcL AO Workflow SS PREGUon 12-19-2024 HCG ( test) Ql (U) Negative Normal [facility] Comment on above: Performed By: #### U A, PREGU, UAMIC #### [address] [address] test (u) int Not detected Invalid Interpretation Code [facility] Comment on above: Performed By: #### U A, PREGU, UAMIC #### [place] [address] UAon 12-19-2024 Color (U) Yellow Normal [facility] Comment on above: Performed By: #### U A, PREGU, UAMIC #### [place] [address] Glucose (U) [Mass/Vol] Negative Normal Negative [facility] Comment on above: Performed By: #### U A, PREGU, UAMIC #### [place] [address] Ketones Ql (U) 40 mg/dL Abnormal Negative [facility] Comment on above: Performed By: #### U A, PREGU, UAMIC #### [place] [address] UA Appear Clear Normal Clear [facility] Comment on above: Performed By: #### U A, PREGU, UAMIC #### [place] [address] UA Bili Small Abnormal Negative [facility] Comment on above: Performed By: #### U A, PREGU, UAMIC #### [place] [address] UA Blood Negative Normal Negative [facility] Comment on above: Performed By: #### U A, PREGU, UAMIC #### [place] [address] UA Leuk Est Small Abnormal Negative [facility] Comment on above: Performed By: #### U A, PREGU, UAMIC #### [place] [address] UA Nitrite Negative Normal Negative [facility] Comment on above: Performed By: #### U A, PREGU, UAMIC #### [place] [address] UA pH 6.5 Normal 5.0 - 8.0 [facility] Comment on above: Performed By: #### U A, PREGU, UAMIC #### [place] [address] UA Protein Negative Normal Negative [facility] Comment on above: Performed By: #### U A, PREGU, UAMIC #### [place] [address] UA Spec Grav 1.020 Normal 1.015-1.025 [facility] Comment on above: Performed By: #### U A, PREGU, UAMIC #### [place] [address] UA Specimen Type Void Normal [facility] Comment on above: Performed By: #### U A PREGU, UAMIC #### [place] [address] UA Urobilinogen 1.0 E.U./dL Normal 0.2-1.0 [facility] Comment on above: Performed By: #### U A, PREGU, UAMIC #### [place] [address] UAMICon 12-19-2024 UA Bacteria 1+ /hpf Abnormal Negative [facility] Comment on above: Performed By: #### U A, PREGU, UAMIC #### [place] [address] UA RBC Negative Normal 0-2 [facility] Comment on above: Performed By: #### U A, PREGU, UAMIC #### [place] [address] UA Squam Epithelial 5-10 Normal 0-20 [facility] Comment on above: Performed By: #### U A, PREGU, UAMIC #### [place] [address] UA WBC 5-10 Abnormal 0-5 [facility] Comment on above: Performed By: #### U A, PREGU, UAMIC #### [place] [address] US PELVIS NON-OB COMPLETEon 12-19-2024 US PELVIS NON-OB COMPLETE ORIGINAL EXAMINATION: PELVIC ULTRASOUND 12/19/2024 TECHNIQUE: Transabdominal and transvaginal pelvic duplex ultrasound using B-mode/tijerina scaled imaging, Doppler spectral analysis and color flow Doppler was obtained. COMPARISON: None HISTORY: ORDERING SYSTEM PROVIDED HISTORY: Reason for Exam: pelvic pain FINDINGS: Measurements: Uterus: 9.1 cm x 3.1 cm x 3.2 cm Endometrial stripe: 30.7 mm Right Ovary:3.8 cm x 3.1 cm x 3.2 cm, volume 19.7 mL Left Ovary: 2.9 cm x 1.9 cm x 2.1 cm, volume 6.1 mL Ultrasound Findings: Uterus: Uterus demonstrates normal myometrial echotexture. Endometrial stripe: Endometrial stripe is within normal limits. Right Ovary: Right ovary is within normal limits. There is a complex cystic area measuring 2.3 cm x 2.3 cm x 2.3 cm. There is normal arterial and venous Doppler flow. Left Ovary: Left ovary is within normal limits. There is normal arterial and venous Doppler flow. Free Fluid: Free fluid in the cul-de-sac. IMPRESSION: 1. Complex cystic area in the right ovary and free fluid in the cul-de-sac. Findings would be consistent with a ruptured hemorrhagic cyst. 2. Thickened endometrial stripe measuring 30.7 mm. Correlation with menstrual cycle is recommended. Interpreted by: Higinio Kirkpatrick Preliminary Report By: Higinio Kirkpatrick Electronically signed By Higinio Kirkpatrick Dictated Date: 12/19/2024 9:33:44 PM Prelim Date: 12/19/2024 9:38:30 PM Sign Date: 12/19/2024 9:38:30 PM Ordering Provider: JUAN M Hager [facility] 12 Lead EKGon 12-17-2024 12 Lead EKG [facility] [address] [place] [address] 12 Lead EKG 12/17/24 1909 MR#: [id number] Acct: [id number] Name: CATALINA MARVIN Rep #: [id number] : 1995 29 From: Winston Chen MD Attending Dr: Status: DEP ER Ordering Dr: Emelina Howard DO Date: 12/17/24 Location: ED Sex: F C Admitted: Test Reason : SYNCOPE Blood Pressure : */* mmHG Vent. Rate : 105 BPM Atrial Rate : 105 BPM P-R Int : 122 ms QRS Dur : 80 ms QT Int : 324 ms P-R-T Axes : 52 17 19 degrees QTcB Int : 428 ms Sinus tachycardia poor rwave progression Borderline Confirmed by Winston Chen ([id number]), editorial manager LENA HERNANDEZ ([id number]) on 12/19/2024 1:12:30 PM Referred By: Emelina Howard Confirmed By: Winston Chen 12/19/24 1312 Date Winston Chen MD CC: Dr. Emelina Howard, ; No Primary Care Physician Signed Normal [facility] Abdomen/Pelvis W IV Cont ONL Yon 12-17-2024 Abdomen/Pelvis W IV Cont ONLY [facility] Imaging Services [address] [place], [place] [address] Abdomen/Pelvis W IV Cont ONLY MR#: [id number] Acct: [id number] Name: CATALINA MARVIN Rep #: [id number] : 1995 F 29 From: Jaime Guallpa MD PCP: Care Physician,No Primary Status: REG ER Study: Abdomen/Pelvis W IV Cont ONLY Date of Exam: Exam# [id number] Ordering Dr: Emelina Howard DO PROCEDURE: ABDOMEN/PELVIS W IV CONT ONLY 12/17/2024 REASON FOR EXAM: ABDOMINAL PAIN TECHNIQUE: ABDOMEN/PELVIS W IV CONT ONLY Coronal and Sagittal reconstruction series were provided. CONTRAST: Isovue 370 VOLUME: 88 mL One or more dose reduction techniques were used (e.g., Automated exposure control, adjustment of the mA and/or kV according to patient size, use of iterative reconstruction technique. RADIATION DOSE SUMMARY: CTDlvol: 17 mGy DLP: 345 mGycm COMPARISON: No FINDINGS: Clear lung bases. Normal heart size. Unremarkable liver, gallbladder, pancreas, spleen, adrenal glands, kidneys. No hydronephrosis or ureteral stone. Normal bladder. Normal uterus and left ovary. Involuting right ovarian cyst. Small pelvic free fluid. No retroperitoneal or pelvic adenopathy. Distended pelvic veins, correlate for pelvic congestion syndrome. No free air. Nondistended bowel. Multiple distal small bowel loops show wall thickening, possible enteritis. No acute large bowel findings. No signs of appendicitis. No acute abdominal wall findings. CT/Abdomen/Pelvis W IV Cont ONLY IMPRESSION: Recent right ovarian cyst rupture with pelvic fluid, this can be a cause of pain. 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 Distal enteritis such as secondary to infection. Advise correlation. Reading Location: [place] [address] CC: Dr. 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 Normal [facility] Absolute lymphocyte countOrd ered By: Emelina Howard on 12-17-2024 Lymphocytes Auto (Unsp spec) [#/Vol] 0.86 10*3/uL 0.83-4.51 [facility] Absolute neutrophil countOrd ered By: Emelina Howard on 12-17-2024 Neutrophils (Bld) [#/Vol] 7.3 10*3/uL 2.0-7.7 [facility] Anion gap in Serum or Plasma Ordered By: Emelina Howard on 12-17-2024 Anion gap [Moles/Vol] 15 mmol/L 5-15 [facility] Automated lymphocyte count a s percentage of total leukocytesOrdered By: Emelina Howard on 12-17-2024 Lymphocytes/100 WBC Auto (Unsp spec) 10.0 % Low 19-41 [facility] BUN/creatinine ratioOrdered By: Emelina Howard on 12-17-2024 Urea nitrogen/Creatinine [Mass ratio] 12.7 mg/mg 10-20 [facility] Basophil percentageOrdered B y: Emelina Howard on 12-17-2024 Basophils/100 WBC (Bld) 0.2 % 0-1 [facility] Bilirubin Test strip Ql (U)O rdered By: Emelina Howard on 12-17-2024 Bilirubin Ql (U) Negative Negative [facility] Bilirubin, totalOrdered By: Emelina Howard on 12-17-2024 Bilirubin [Mass/Vol] 0.38 mg/dL 0.00-1.30 [facility] CBC W/Diff, Automatedon 11-29 Absolute Lymph 0.86 X10 3/uL Normal 0.83-4.51 [facility] Comment on above: Performed By: #### L 100.0100 #### [facility] [address] [place], [address] Absolute Neut 7.3 X10 3/uL Normal 2.0-7.7 [facility] Comment on above: Performed By: #### L 100.0100 #### [facility] [address] [place], [address] Basophils/100 WBC (Bld) 0.2 % Normal 0-1 [facility] Comment on above: Performed By: #### L 100.0100 #### [facility] [address] [place], [address] Eosinophils/100 WBC (Bld) 0.0 % Normal 0-5 [facility] Comment on above: Performed By: #### L 100.0100 #### [facility] [address] [place], [address] Erythrocyte distribution width (RBC) [Ratio] 12.4 % Normal 11.6-14.6 [facility] Comment on above: Performed By: #### L 100.0100 #### [facility] [address] [place], [address] Hematocrit (Bld) [Volume fraction] 35.6 % Low 37-47 [facility] Comment on above: Performed By: #### L 100.0100 #### [facility] [address] [place], [address] Hemoglobin (Bld) [Mass/Vol] 12.2 g/dL Normal 12.0-15.0 [facility] Comment on above: Performed By: #### L 100.0100 #### [facility] [address] [place], [address] IG% 0.300 Normal 0.0-0.9 [facility] Comment on above: Result Comment: IG% - Immature Granulocytes (promyelocytes, myelocytes and metamyelocytes) > 1% indicates that a LEFT SHIFT is Present. Performed By: #### L 100.0100 #### [facility] [address] [place], [address] Lymphocytes/100 WBC (Bld) 10.0 % Low 19-41 [facility] Comment on above: Performed By: #### L 100.0100 #### [facility] [address] [place], [address] MCH (RBC) [Entitic mass] 30.0 pg Normal 27.0-32.0 [facility] Comment on above: Performed By: #### L 100.0100 #### [facility] [address] [place], [address] MCHC (RBC) [Mass/Vol] 34.3 g/dL Normal 32-36 [facility] Comment on above: Performed By: #### L 100.0100 #### [facility] [address] [place], [address] MCV (RBC) [Entitic vol] 87.7 fL Normal 81-99 [facility] Comment on above: Performed By: #### L 100.0100 #### [facility] [address] [place], [address] Monocytes/100 WBC (Bld) 4.9 % Normal 0-10 [facility] Comment on above: Performed By: #### L 100.0100 #### [facility] [address] [place], [address] Neutrophils/100 WBC (Bld) 84.6 % High 47-70 [facility] Comment on above: Performed By: #### L 100.0100 #### [facility] [address] [place], [address] Nucleated RBC (Bld) [#/Vol] 0 10*3/uL Normal 0-5 [facility] Comment on above: Performed By: #### L 100.0100 #### [facility] [address] [place], [address] Platelet mean volume (Bld) [Entitic vol] 9.2 fL Normal 6.2-12.0 [facility] Comment on above: Performed By: #### L 100.0100 #### [facility] [address] [place], [address] Platelets (Bld) [#/Vol] 225 10*3/uL Normal 150-450 [facility] Comment on above: Performed By: #### L 100.0100 #### [facility] [address] [place], [address] RBC (Bld) [#/Vol] 4.06 10*6/uL Low 4.2-5.4 [facility] Comment on above: Performed By: #### L 100.0100 #### [facility] [address] [place], [address] RDW SD 40.3 fl Normal 35.1-43.9 [facility] Comment on above: Performed By: #### L 100.0100 #### [facility] [address] [place], [address] WBC (Bld) [#/Vol] 8.6 10*3/uL Normal 4.4-11.0 [facility] Comment on above: Performed By: #### L 100.0100 #### [facility] [address] [place], [address] Absolute Neut Normal 2.0-7.7 [facility] Comment on above: Result Comment: REDR AW. PREVIOUS SPECIMEN REJECTED DUE TO CLOTTED. 12/17/242008 Debbi DÍAZ NOTIFIED Performed By: #### L 503.6005, L700.6800, L500.4050, L100.0100, L501.2450 #### [facility] [address] [place], [address] HCT Normal 37-47 [facility] Comment on above: Result Comment: REDR AW. PREVIOUS SPECIMEN REJECTED DUE TO CLOTTED. 12/17/242008 Debbi DÍAZ NOTIFIED Performed By: #### L 503.6005, L700.6800, L500.4050, L100.0100, L501.2450 #### [facility] [address] [place], [address] HGB Normal 12.0-15.0 [facility] Comment on above: Result Comment: REDR AW. PREVIOUS SPECIMEN REJECTED DUE TO CLOTTED. 12/17/242008 Debbi DÍAZ NOTIFIED Performed By: #### L 503.6005, L700.6800, L500.4050, L100.0100, L501.2450 #### [facility] [address] [place], [address] MCH Normal 27.0-32.0 [facility] Comment on above: Result Comment: REDR AW. PREVIOUS SPECIMEN REJECTED DUE TO CLOTTED. 12/17/242008 Debbi DÍAZ NOTIFIED Performed By: #### L 503.6005, L700.6800, L500.4050, L100.0100, L501.2450 #### [facility] [address] [place], [address] MCHC Normal 32-36 [facility] Comment on above: Result Comment: REDR AW. PREVIOUS SPECIMEN REJECTED DUE TO CLOTTED. 12/17/242008 Debbi DÍAZ NOTIFIED Performed By: #### L 503.6005, L700.6800, L500.4050, L100.0100, L501.2450 #### [facility] [address] [place], [address] MCV Normal 81-99 [facility] Comment on above: Result Comment: REDR AW. PREVIOUS SPECIMEN REJECTED DUE TO CLOTTED. 12/17/242008 Debbi DÍAZ NOTIFIED Performed By: #### L 503.6005, L700.6800, L500.4050, L100.0100, L501.2450 #### [facility] [address] [place], [address] NEUT% Normal 47-70 [facility] Comment on above: Result Comment: REDR AW. PREVIOUS SPECIMEN REJECTED DUE TO CLOTTED. 12/17/242008 Debbi DÍAZ NOTIFIED Performed By: #### L 503.6005, L700.6800, L500.4050, L100.0100, L501.2450 #### [facility] [address] [place], [address] PLT Normal 150-450 [facility] Comment on above: Result Comment: REDR AW. PREVIOUS SPECIMEN REJECTED DUE TO CLOTTED. 12/17/242008 Debbi DÍAZ NOTIFIED Performed By: #### L 503.6005, L700.6800, L500.4050, L100.0100, L501.2450 #### [facility] [address] [place], [address] RBC Normal 4.2-5.4 [facility] Comment on above: Result Comment: REDR AW. PREVIOUS SPECIMEN REJECTED DUE TO CLOTTED. 12/17/242008 Debbi DÍAZ NOTIFIED Performed By: #### L 503.6005, L700.6800, L500.4050, L100.0100, L501.2450 #### [facility] [address] [place], [address] RDW CV Normal 11.6-14.6 [facility] Comment on above: Result Comment: REDR AW. PREVIOUS SPECIMEN REJECTED DUE TO CLOTTED. 12/17/242008 Debbi DÍAZ NOTIFIED Performed By: #### L 503.6005, L700.6800, L500.4050, L100.0100, L501.2450 #### [facility] [address] [place], [address] RDW SD Normal 35.1-43.9 [facility] Comment on above: Result Comment: REDR AW. PREVIOUS SPECIMEN REJECTED DUE TO CLOTTED. 12/17/242008 Debbi DÍAZ NOTIFIED Performed By: #### L 503.6005, L700.6800, L500.4050, L100.0100, L501.2450 #### [facility] [address] [place], [address] WBC Normal 4.4-11.0 [facility] Comment on above: Result Comment: REDR AW. PREVIOUS SPECIMEN REJECTED DUE TO CLOTTED. 12/17/242008 Debbi DÍAZ NOTIFIED Performed By: #### L 503.6005, L700.6800, L500.4050, L100.0100, L501.2450 #### [facility] [address] [place], [address] Carbon dioxide, total [Moles /volume] in Central venous bloodOrdered By: Emelina Howard on 12-17-2024 CO2 [Moles/Vol] 17.5 mmol/L Low 21.0-32.0 [facility] Chloride assayOrdered By: Chyna Howard on 12-17-2024 Chloride [Moles/Vol] 102 mmol/L 98-108 [facility] Comprehensive Metabolic Prof ilon 12-17-2024 Albumin [Mass/Vol] 4.3 g/dL Normal 3.5-5.0 [facility] Comment on above: Performed By: #### L 503.6005, L700.6800, L500.4050, L100.0100, L501.2450 #### [facility] [address] [place], [address] Albumin/Globulin [Mass ratio] 1.6 {ratio} Normal 0.9-2.4 [facility] Comment on above: Performed By: #### L 503.6005, L700.6800, L500.4050, L100.0100, L501.2450 #### [facility] [address] [place], [address] ALK PHOS 71 U/L Normal 35-104 [facility] Comment on above: Performed By: #### L 503.6005, L700.6800, L500.4050, L100.0100, L501.2450 #### [facility] [address] [place], [address] ALT [Catalytic activity/Vol] 9 U/L Normal <=34 [facility] Comment on above: Performed By: #### L 503.6005, L700.6800, L500.4050, L100.0100, L501.2450 #### [facility] [address] [place], [address] AST [Catalytic activity/Vol] 24 U/L Normal <=31 [facility] Comment on above: Performed By: #### L 503.6005, L700.6800, L500.4050, L100.0100, L501.2450 #### [facility] [address] [place], [address] Bilirubin [Mass/Vol] 0.38 mg/dL Normal 0.00-1.30 [facility] Comment on above: Performed By: #### L 503.6005, L700.6800, L500.4050, L100.0100, L501.2450 #### [facility] [address] [place], [address] BUN/CRE 12.7 RATIO Normal 10-20 [facility] Comment on above: Performed By: #### L 503.6005, L700.6800, L500.4050, L100.0100, L501.2450 #### [facility] [address] [place], [address] Calcium [Mass/Vol] 9.7 mg/dL Normal 7.6-11.0 [facility] Comment on above: Performed By: #### L 503.6005, L700.6800, L500.4050, L100.0100, L501.2450 #### [facility] [address] [place], [address] Chloride [Moles/Vol] 102 mmol/L Normal 98-108 [facility] Comment on above: Performed By: #### L 503.6005, L700.6800, L500.4050, L100.0100, L501.2450 #### [facility] [address] [place], [address] CO2 [Moles/Vol] 17.5 mmol/L Low 21.0-32.0 [facility] Comment on above: Performed By: #### L 503.6005, L700.6800, L500.4050, L100.0100, L501.2450 #### [facility] [address] [place], [address] Creatinine [Mass/Vol] 0.63 mg/dL Low 0.70-1.20 [facility] Comment on above: Performed By: #### L 503.6005, L700.6800, L500.4050, L100.0100, L501.2450 #### [facility] [address] [place], [address] ECRCL 120.70 ml/min Normal 50-250 [facility] Comment on above: Performed By: #### L 503.6005, L700.6800, L500.4050, L100.0100, L501.2450 #### [facility] [address] [place], [address] GAP 15 Normal 5-15 [facility] Comment on above: Performed By: #### L 503.6005, L700.6800, L500.4050, L100.0100, L501.2450 #### [facility] [address] [place], [address] GFR/1.73 sq M.predicted among non-blacks MDRD (S/P/Bld) [Vol rate/Area] 125 mL/min/{1.73_m2} Normal >60 [facility] Comment on above: Result Comment: mL/m in/1.73m2 CKD-EPI Creatinine Equation (2020) Performed By: #### L 503.6005, L700.6800, L500.4050, L100.0100, L501.2450 #### [facility] [address] [place], [address] Globulin (S) [Mass/Vol] 2.7 g/dL Normal 2.2-4.2 [facility] Comment on above: Performed By: #### L 503.6005, L700.6800, L500.4050, L100.0100, L501.2450 #### [facility] [address] [place], [address] Glucose [Mass/Vol] 94 mg/dL Normal 70-99 [facility] Comment on above: Performed By: #### L 503.6005, L700.6800, L500.4050, L100.0100, L501.2450 #### [facility] [address] [place], [address] Potassium [Moles/Vol] 4.3 mmol/L Normal 3.3-5.1 [facility] Comment on above: Performed By: #### L 503.6005, L700.6800, L500.4050, L100.0100, L501.2450 #### [facility] [address] [place], [address] Sodium [Moles/Vol] 134 mmol/L Normal 133-145 [facility] Comment on above: Performed By: #### L 503.6005, L700.6800, L500.4050, L100.0100, L501.2450 #### [facility] [address] [place], [address] T PROT 7.0 g/dL Normal 5.9-8.4 [facility] Comment on above: Performed By: #### L 503.6005, L700.6800, L500.4050, L100.0100, L501.2450 #### [facility] [address] [place], [address] Urea nitrogen [Mass/Vol] 8 mg/dL Normal 4-19 [facility] Comment on above: Performed By: #### L 503.6005, L700.6800, L500.4050, L100.0100, L501.2450 #### [facility] [address] [place], [address] Emergency Department Summary on 12-17-2024 Emergency Department Summary [facility] Medical Records Department [address] [place] [address] Emergency Department Summary 12/17/24 MR#: [id number] Acct: [id number] Name: MARVINCATALINA K Rep #: [id number] : 1995 29 From: Emelina Howard DO PCP: Care Physician,No Primary Status:REG ER Location: ED HPI History of Present Illness Chief Complaint: Syncope Detail of Chief Complaint: Abdominal pain and syncopal episode Informant: patient Narrative Narrative: Patient presents to the emergency department complaint of abdominal pain had started this morning around 9 AM when she first woke up. Patient took some Pepto-Bismol but really did not have relief with that. Pain then progressed, to the left side of her abdomen and into her back. On the way to the hospital she was in the car and had a syncopal episode that lasted about 2 minutes. She denies any chest pain or shortness of breath. Feels chilled. She denies urinary symptoms. Her last menstrual period was a week ago. PFSH PFS Medical History (Updated 12/17/24 @ 23:[address] Emelina Howard DO) Raynaud's disease Home Medications ???Medication ???Instructions ???Recorded ???Last Taken ???Type hydrocodone-acetaminoph en 5-325mg 1 tab PO Q4H PRN PRN Pain 2 days 12/17/24 Unknown Rx 5mg-325mg #10 TABLETS Allergy/AdvReac Type Severity Reaction Status Date / Time carbinoxamine (From [facility]) Allergy Intermediate Hives Verified 12/17/24 19:23 pseudoephedrine (From [facility]) Allergy Intermediate Hives Verified 12/17/24 19:23 Surgical History (Updated 12/17/24 @ 19:36 by Kezia Sylvester) Hx of tonsillectomy [place] teeth extracted Social History (Updated 11/02/20 @ 07:[address] 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 details: Does not use IV drugs ROS ROS ED Review of Systems ROS Unobtainable: other Constitutional Constitutional ED: Reports chills and lethargy; Denies fever(s), sweats or weight loss Eyes Eyes: Denies blurry vision, change in vision or diplopia ENT ENT ED: Denies rhinorrhea or sore throat Cardiovascular Cardiovascular: Denies chest pain, orthopnea or racing heartbeat Respiratory/Chest Respiratory/Chest: Denies cough, dyspnea, dyspnea on exertion, orthopnea or sputum Gastrointestinal Gastrointestinal: Reports abdominal pain; Denies diarrhea, nausea or vomiting Genitourinary Genitourinary ED: Denies dysuria, hematuria or urinary frequency Musculoskeletal Musculoskeletal: Reports back pain; Denies arthralgias, myalgias or neck pain Integumentary Denies abscess, Abrasions or rash Neurologic Neurologic: Reports other Details: Syncope ; Denies headache(s) or weakness Psychiatric Psychiatric: Denies anxiety, depression or suicidal thoughts Endocrine Endocrinology: Denies polydipsia, polyphagia or polyuria Hematologic/Lymphatic Hematologic/Lymphatic: Denies easy bleeding, easy bruising or lymphadenopathy Allergic/Immunologic Allergic/Immunologic ED: Denies mouth swelling, tongue swelling or urticaria EXAM Physical Exam Const Vital Signs: 12/17/24 18:59 12/17/24 19:23 12/17/24 19:33 Temperature 97.2 F L Temperature Source Temporal Pulse Rate 112 H 92 Respiratory Rate 16 16 Respiratory Effort Normal Respiratory Pattern Normal Blood Pressure 115/78 126/66 H Blood Pressure Mean 90 86 Pulse Ox 100 100 Oxygen Delivery Method Room Air Room Air 12/17/24 20:00 12/17/24 21:17 12/17/24 22:00 Temperature Temperature Source Pulse Rate 98 91 Respiratory Rate 14 18 Respiratory Effort Respiratory Pattern Blood Pressure 112/56 L 115/77 117/77 Blood Pressure Mean 74 89 90 Pulse Ox 99 99 96 Oxygen Delivery Method Room Air 12/17/24 23:00 Temperature Temperature Source Pulse Rate 94 Respiratory Rate 18 Respiratory Effort Respiratory Pattern Blood Pressure 105/66 Blood Pressure Mean 79 Pulse Ox 98 Oxygen Delivery Method Positive well nourished and well developed General Appearance ED: well developed and NAD HEENT Reports TM's clear and moist mucous membranes normocephalic and atraumatic; Negative for trauma or tenderness Tympanic Membrane ED: Yes TM's clear Eyes PERRL and EOMs intact bilaterally General Eye ED: Negative for pale conjunctiva or scleral icterus Neck no lymphadenopathy, supple and no JVD General: Negative for tenderness Chest Wall inspection of chest normal and palpation of chest normal Chest: Negative for tenderness Resp normal respiratory effort and clear to auscultation bilaterally Effort and Inspection: Negative for respiratory distress or pain with movement Auscultation: Negative for rhonchi, wheezes or diminished lung sounds Cardio regular rate, regular (more content not included)... Normal [facility] Eosinophil percentageOrdered By: Emelina Howard on 12-17-2024 Eosinophils/100 WBC (Bld) 0.0 % 0-5 [facility] Erythrocyte distribution wid th ratioOrdered By: Emelina Howard on 12-17-2024 Erythrocyte distribution width (RBC) [Ratio] 12.4 % 11.6-14.6 [facility] Erythrocyte distribution wid th standard deviationOrdered By: Emelina Howard on 12-17-2024 Erythrocyte distribution width (RBC) [Ratio] 40.3 fl 35.1-43.9 [facility] Glomerular filtration rate ( GFR) estimation/1.73 sq m using serum, plasma, or whole bOrdered By: Emelina Howard on 12-17-2024 GFR/1.73 sq M.predicted among non-blacks MDRD (S/P/Bld) [Vol rate/Area] 125 mL/min/{1.73_m2} >60 [facility] Comment on above: mL/min/1.73m2 CKD-EP I Creatinine Equation (2020) Hematocrit Auto (Bld) [Volum e fraction]Ordered By: Emelina Howard on 12-17-2024 Hematocrit (Bld) [Volume fraction] 35.6 % Low 37-47 [facility] Hemoglobin measurementOrdere d By: Emelina Howard on 12-17-2024 Hemoglobin (Bld) [Mass/Vol] 12.2 g/dL 12.0-15.0 [facility] Immature granulocytes/100 WB C Auto (Bld)Ordered By: Emelina Howard on 12-17-2024 Immature granulocytes/100 WBC (Bld) 0.300 % 0.0-0.9 [facility] Comment on above: IG% - Immature Granu locytes (promyelocytes, myelocytes and metamyelocytes) > 1% indicates that a LEFT SHIFT is Present. Ketones Test strip Ql (U)Ord ered By: Emelina Howard on 12-17-2024 Ketones Ql (U) 15 mg/dl High Negative [facility] - Chemistry and C hemistry - challengeOrdered By: Emelina Howard on 12-17-2024 AST [Catalytic activity/Vol] 24 U/L <32 [facility] Lactic Acidon 12-17-2024 Lactate [Moles/Vol] mmol/L Normal 0.0-2.0 [facility] Comment on above: Order Comment: Y Performed By: #### L 503.6005, L700.6800, L500.4050, L100.0100, L501.2450 #### [facility] [address] [place], [address] Lactic acid measurementOrder ed By: Emelina Howard on 12-17-2024 Lactate [Moles/Vol] mmol/L 0.0-2.0 [facility] Lipaseon 12-17-2024 Lipase [Catalytic activity/Vol] 17 U/L Normal 13-75 [facility] Comment on above: Result Comment: Tamie son note: LIPASE revised reference range effective 22. New Lipase methodology. Expected to produce lower values than the previous assay method. NEW Reference Range: 13 - 75 U/L Performed By: #### L 503.6005, L700.6800, L500.4050, L100.0100, L501.2450 #### [facility] [address] [place], [address] Lipase measurementOrdered By : Emelina Howard on 12-17-2024 Lipase [Catalytic activity/Vol] 17 U/L 13-75 [facility] Comment on above: Please note:LIPASE r evised reference range effective 22. New Lipase methodology. Expected to produce lower values than the previous assay method. NEW Reference Range: 13 - 75 U/L MCV (mean corpuscular volume ) determinationOrdered By: Emelina Howard on 12-17-2024 MCV (RBC) [Entitic vol] 87.7 fL 81-99 [facility] Mean corpuscular hemoglobin (MCH) determinationOrdered By: Emelina Howard on 12-17-2024 MCH (RBC) [Entitic mass] 30.0 pg 27.0-32.0 [facility] Mean corpuscular hemoglobin concentration (MCHC) determinationOrdered By: Emelina Howard on 12-17-2024 MCHC (RBC) [Mass/Vol] 34.3 g/dL 32-36 [facility] Mean platelet volume determi nationOrdered By: Emelina Howard on 12-17-2024 Platelet mean volume (Bld) [Entitic vol] 9.2 fL 6.2-12.0 [facility] Microscopic analysis of urin e for red blood cells (RBC)Ordered By: Emelina Howard on 12-17-2024 Microscopic analysis of urine for red blood cells (RBC) 0-5 SEEN /hpf 0-5 [facility] Monocyte percentageOrdered B y: Emelina Howard on 12-17-2024 Monocytes/100 WBC (Bld) 4.9 % 0-10 [facility] Mucus LM Ql (Urine sed)Order ed By: Emelina Howard on 12-17-2024 Mucus Ql (Urine sed) 0 SEEN /hpf [facility] Neutrophil percentageOrdered By: Emelina Howard on 12-17-2024 Neutrophils/100 WBC (Bld) 84.6 % High 47-70 [facility] Nitrite Test strip Ql (U)Ord ered By: Emelina Howard on 12-17-2024 Nitrite Ql (U) Negative Negative [facility] Nucleated red blood cell per centageOrdered By: Emelina Howard on 12-17-2024 Nucleated RBC/100 WBC (Bld) [Ratio] 0 % 0-5 [facility] Platelet countOrdered By: Chyna Howard on 12-17-2024 Platelets (Bld) [#/Vol] 225 10*3/uL 150-450 [facility] Potassium measurement (mass/ volume)Ordered By: Emelina Howard on 12-17-2024 Potassium (Unsp spec) [Mass/Vol] 4.3 mmol/L 3.3-5.1 [facility] ,Serum,hCG Quali.on 12-17-2024 HCG, SERUM QUAL Negative Normal [facility] Comment on above: Performed By: #### L 503.6005, L700.6800, L500.4050, L100.0100, L501.2450 #### [facility] [address] [place] [address], [id number] Protein Test strip Ql (U)Ord ered By: Emelina Howard on 12-17-2024 Protein Ql (U) 15 mg/dl High Negative [facility] RBC Auto (Bld) [#/Vol]Ordere d By: Emelina Howard on 12-17-2024 RBC (Bld) [#/Vol] 4.06 10*6/uL Low 4.2-5.4 [facility] Serum beta-hCG test, qualita tiveOrdered By: Emelina Howard on 12-17-2024 Beta HCG ( test) Ql Negative [facility] Serum creatinine measurement (mass/volume)Ordered By: Emelina Howard on 12-17-2024 Creatinine [Mass/Vol] 0.63 mg/dL Low 0.70-1.20 [facility] Serum globulin measurementOr dered By: Emelina Howard on 12-17-2024 Globulin (S) [Mass/Vol] 2.7 g/dL 2.2-4.2 [facility] Serum glucose measurement (m ass/volume)Ordered By: Emelina Howard on 12-17-2024 Glucose [Mass/Vol] 94 mg/dL 70-99 [facility] Serum or plasma alanine vang otransferase (ALT) measurementOrdered By: Emelina Howard on 12-17-2024 ALT [Catalytic activity/Vol] 9 U/L <35 [facility] Serum or plasma albumin ramya urement (mass/volume)Ordered By: Emelina Howard on 12-17-2024 Albumin [Mass/Vol] 4.3 g/dL 3.5-5.0 [facility] Serum or plasma albumin/glob ulin mass ratioOrdered By: Emelina Howard on 12-17-2024 Albumin/Globulin [Mass ratio] 1.6 {ratio} 0.9-2.4 [facility] Serum or plasma alkaline krishna sphatase measurementOrdered By: Emelina Howard on 12-17-2024 ALP [Catalytic activity/Vol] 71 U/L 35-104 [facility] Serum or plasma calcium ramya urement (mass/volume)Ordered By: Emelina Howard on 12-17-2024 Calcium [Mass/Vol] 9.7 mg/dL 7.6-11.0 [facility] Serum or plasma urea nitroge n measurement (mass/volume)Ordered By: Emelina Howard on 12-17-2024 Urea nitrogen [Mass/Vol] 8 mg/dL 4-19 [facility] Sodium levelOrdered By: Luis Felipe Howard on 12-17-2024 Sodium [Moles/Vol] 134 mmol/L 133-145 [facility] Squamous epithelial cells de tection in urine sediment by light microscopyOrdered By: Emelina Howard on 12-17-2024 Epithelial cells.squamous LM Ql (Urine sed) 25-50 SEEN /hpf 5-10 [facility] Total proteinOrdered By: Svetlana Howard on 12-17-2024 Protein [Mass/Vol] 7.0 g/dL 5.9-8.4 [facility] Transitional cells detection in urine sediment by light microscopyOrdered By: Emelina Howard on 12-17-2024 Transitional cells LM Ql (Urine sed) 0-5 SEEN /hpf 0-5 [facility] Urinalysis, Completeon 12-17 EPI,TRANSITION 0-5 SEEN Normal 0-5 [facility] Comment on above: Order Comment: CLEAN CATCH Performed By: #### L 400.0001 #### [facility] [address] [place], [address] RBC 0-5 SEEN Normal 0-5 [facility] Comment on above: Order Comment: CLEAN CATCH Performed By: #### L 400.0001 #### [facility] [address] [place], [address] BACTERIA 2+ /hpf Normal None Seen [facility] Comment on above: Order Comment: CLEAN CATCH Performed By: #### L 400.0001 #### [facility] [address] [place], [address] EPI,SQUAMOUS 25-50 SEEN Normal 5-10 [facility] Comment on above: Order Comment: CLEAN CATCH Performed By: #### L 400.0001 #### [facility] [address] [place], [address] WBC 5-10 SEEN Normal 0-5 [facility] Comment on above: Order Comment: CLEAN CATCH Performed By: #### L 400.0001 #### [facility] [address] [place], [address] Mucus Ql (Urine sed) 0 SEEN Normal [facility] Comment on above: Order Comment: CLEAN CATCH Performed By: #### L [id number] #### [facility] [address] [place], [address] Urine clarityOrdered By: Svetlana Howard on 12-17-2024 Clarity (U) Sl. Cloudy Clear [facility] Urine color determinationOrd ered By: Emelina Howard on 12-17-2024 Color (U) Yellow Yellow [facility] Urine glucose detectionOrder ed By: Emelina Howard on 12-17-2024 Glucose Ql (U) Normal mg/dl Normal [facility] Urine leukocyte esterase det ection by dipstickOrdered By: Emelina Howard on 12-17-2024 Leukocyte esterase Test strip Ql (U) 100 /ul High Negative [facility] Urine pHOrdered By: Emelina Bailey gur on 12-17-2024 pH (U) 6.5 [pH] 5.0 - 8.0 [facility] Urine sediment bacteria coun t by microscopy (number/high power field)Ordered By: Emelina Howard on 12-17-2024 Bacteria LM.HPF (Urine sed) [#/Area] 2 /[HPF] None Seen [facility] Urine specific gravity measu rementOrdered By: Emelina Howard on 12-17-2024 Specific gravity (U) [Rel density] 1.010 1.002-1.030 [facility] Urine urobilinogen measureme ntOrdered By: Emelina Howard on 12-17-2024 Urobilinogen Ql (U) Normal mg/dl Normal [facility] White blood cell (WBC) count Ordered By: Emelina Howard on 12-17-2024 WBC (Bld) [#/Vol] 8.6 10*3/uL 4.4-11.0 [facility] White blood cell countOrdere d By: Emelina Howard on 12-17-2024 White blood cell count 5-10 SEEN /hpf 0-5 [facility] Office Visiton 12-31-2022 Follow-up visit [id number] Jez Marvin 1995 F Date Provider Department Center 12/31/2022 [id number] POLK MG [facility] OB [facility] OB Offi Family History Problem Relation Age of Onset Lung cancer Paternal Grandfather Throat cancer Maternal Grandfather Lymphoma Maternal Grandfather Breast cancer Mother's Sister Family Status - Relation Status Age at Paternal Grandfather Maternal Grandfather Mother's Sister Level of Service:99822 [place] PERIODIC PREVENTIVE MED EST PATIENT 18-39 YRS Reason for Visit and Comments: Annual Exam [83] Normal [facility] Progress Noteon 12-31-2022 Progress Note Catalina Marvin [...] or others. Would like to restart medication. _ Gynecologic History: Patient's last menstrual period was [...] Vag-Spont EPI N MIRYAM 1 IAB 2018 __ Past Medical History: Diagnosis Date Anemia Mental [...] Reaction Noted Lactose intolerance (gi) 07/16/2022 Rondec-d [chlophedianol-pseudoep hedrine] 03/23/2010 REVIEW OF SYSTEMS: Constitutional: Negative for [...] heada (more content not included)... Normal [facility] Progress Note A substitute nurse was offe red to be present during her exam. The patient: declined Normal [facility] Office Visiton 07-24-2022 Follow-up visit [id number] Jez Marvin 1995 F Date Provider Department Center 07/24/2022 [id number] POLK MG [facility] OB [facility] OB Offi Family History Problem Relation Age of Onset Lung cancer Paternal Grandfather Throat cancer Maternal Grandfather Lymphoma Maternal Grandfather Breast cancer Mother's Sister Family Status - Relation Status Age at Paternal Grandfather Maternal Grandfather Mother's Sister Level of Service:35975 [place] OFFICE/OUTPATIENT ESTABLISHED LOW MDM 20-29 MIN Reason for Visit and Comments: Care [85] - Delivered 2..23 BP check Normal [facility] Progress Noteon 07-24-2022 Progress Note Catalina Marvin [...] Vag-Spont EPI N MIRYAM 1 IAB 2017 MEDICATIONS: Current Outpatient Medications Medication Sig Dispense [...] Reaction Noted Lactose intolerance (gi) 07/16/2022 Rondec-d [chlophedianol-pseudoep hedrine] 03/23/2010 PHYSICAL EXAMINATION: BP (!) 147/99 Pulse [...] day of the visit. Genesis Polk MD [facility] 36on 07-23-2022 36 Changed 07/24/22 AISHWARYA appointment to blood pressure [facility] Progress Noteon 07-23-2022 Progress Note Nutrition rescreen completed. Chart reviewed. Patient to be monitored and followed by the diet hydraulic technician. Dietitian available upon request. [facility] Progress Note VAGINAL DELIVERY POST DAY # [...] FVL+Prothrombin (heterozygous), Antithrombin III, APLS Assessment/Plan: Catalina Ambrizter is PPD # 5 s/p Care - Doing well, VSS - Female, Female; at home with patient's parents - both, breast and bottle feeding PreEwSF - Returned to [facility] on 07/21 for headache, vision changes and elevated blood pressures at home, had been seen at OSH prior to transfer to [facility] and was started on magnesium sulfate - [...] Buckley, DO 07/23/2022, 6:05 AM Normal [facility] 42on 07-22-2022 42 Called to see pt by RN. Pt delivered twin girls on 07/18/22 and is in need of pump for home. Instructed pt to call Noé Valdez to utilize her insurance benefits to obtain pump for home. Contact information for Noé Valdez given to pt. Pt verbalizes understanding, denies questions. Normal [facility] Blood type and Crossmatch heather obregon (Bld)on 07-22-2022 ABO group Nom (Bld) O [facility] Blood group antibody screen GEL Ql Negative [facility] D Ag Ql (RBC) Positive [facility]alt [facility] CARECOORDon 07-22-2022 CARECOORD Follow up call to [facility] to check status of report made. Spoke to Cindy Neil who states referral screened out and will not be assigned worker at this time. Sw to follow if needs arise [facility] CBC panel Auto (Bld)Ordered By: Yosvany Ascencio on 07-22-2022 Erythrocyte distribution width (RBC) [Ratio] 23.8 % High 11.5 - 14.5 % [facility] Comment on above: I-Anisocytosis Hematocrit (Bld) [Volume fraction] 26.2 % Low 35.0 - 47.0 % [facility] Hemoglobin (Bld) [Mass/Vol] 8.5 g/dL Low 11.7 - 16.0 g/dL [facility] Interpretation and review of laboratory results Abnormal [facility] MCH (RBC) [Entitic mass] 26.7 pg 26.0 - 34.0 pg [facility] MCHC (RBC) [Mass/Vol] 32.5 % 32.0 - 36.0 % [facility] MCV (RBC) [Entitic vol] 82.1 fL 80.0 - 98.0 fL [facility] Platelet mean volume (Bld) [Entitic vol] 9.6 fL 7.4 - 12.4 fL [facility] Platelets (Bld) [#/Vol] 91 10*3/uL Low 140 - 440 10*3/uL [facility] RBC (Bld) [#/Vol] 3.19 10*6/uL Low 3.8 - 5.20 10*6/uL [facility] WBC (Bld) [#/Vol] 14.9 10*3/uL High 3.6 - 10.7 10*3/uL [facility] Comprehensive metabolic 1998 panelon 07-22-2022 Albumin [Mass/Vol] 3.0 g/dL Low 3.5 - 5.0 g/dL [facility] ALP [Catalytic activity/Vol] 214 U/L High 38 - 126 U/L [facility] ALT [Catalytic activity/Vol] 72 U/L High 0 - 34 U/L [facility] Anion gap [Moles/Vol] 3 mmol/L 3 - 13 mmol/L [facility] AST [Catalytic activity/Vol] 89 U/L High 15 - 46 U/L [facility] Bilirubin [Mass/Vol] 0.3 mg/dL 0.2 - 1 .3 mg/dL [facility] Calcium [Mass/Vol] 6.9 mg/dL Low 8.4 - 10. 4 mg/dL [facility] Chloride [Moles/Vol] 104 mmol/L 98 - 10 7 mmol/L [facility] CO2 [Moles/Vol] 27 mmol/L 22 - 30 mmol/L [facility] Creatinine [Mass/Vol] 0.68 mg/dL 0.52 - 1.04 mg/dL [facility] GFR/1.73 sq M.predicted MDRD (S/P/Bld) [Vol rate/Area] - PINF [facility] Comment on above: Calculation based on the Chronic Kidney Disease Epidemiology Collaboration (CKD-EPI) equation refit without adjustment for race Glucose [Mass/Vol] 74 mg/dL 70 - 100 mg/dL [facility] Interpretation and review of laboratory results Abnormal [facility] Potassium [Moles/Vol] 4.1 mmol/L 3.5 - 5.1 mmol/L [facility] Protein [Mass/Vol] 5.9 g/dL Low 6.3 - 8.2 g/dL [facility] Sodium [Moles/Vol] 134 mmol/L Low 135 - 145 mmol/L [facility] Urea nitrogen [Mass/Vol] 10 mg/dL 7 - 17 mg/dL [facility] Nursing Noteon 07-22-2022 Nursing Note Patient educated on use of breast pump and encouraged to pump 8-10x/day while in hospital. professional services consultant notified pt requesting assistance with ordering new breast pump through insurance. professional services consultant states she will be down this afternoon to see patient. Normal [facility] Nursing Note Breast pump and supplies at bedside for patient. Patient currently resting, states will call out when ready to use pump. Normal [facility] Progress Noteon 07-22-2022 Progress Note --- Attestation signed by Genesis Polk MD at 07/22/2022 4:08 PM Hospital Care (Independent): I independently saw and evaluated the patient. I agree with the findings and plan of care as documented in the resident's note. Magnesium sulfate to be stopped today at 6 pm. If Bps remain well controlled overnight, consider discharge tomorrow AM. VAGINAL DELIVERY POST DAY # 4 Catalina [...] magnesium sulfate at 1800 and transferred to [facility] - Currently has magnesium sulfate running, plan [...] MARYBETH Buckley, DO 07/22/2022, 6:38 AM Normal [facility] .Auto Diffon 02-21-2023 Basophil, Absolute 0.1 10 3/mcL Normal 0.0-0.2 [facility] ([place]) Comment on above: Performed By: #### L D, URIC, ANEU, ADIFF, MDW, GFR, MORPH, CMP, MG, CBC #### [address] [address] Basophils/100 WBC (Bld) 0.4 % Normal 0.0-2.5 A [facility] ([place]) Comment on above: Performed By: #### L D, URIC, ANEU, ADIFF, MDW, GFR, MORPH, CMP, MG, CBC #### [address] [address] Eosinophil, Absolute 0.3 10 3/mcL Normal 0.0-0.4 [facility] ([place]) Comment on above: Performed By: #### L D, URIC, ANEU, ADIFF, MDW, GFR, MORPH, CMP, MG, CBC #### [address] [address] Eosinophils/100 WBC (Bld) 1.5 % Normal 0.0-7.0 [facility] ([place]) Comment on above: Performed By: #### L D, URIC, ANEU, ADIFF, MDW, GFR, MORPH, CMP, MG, CBC #### [address] [address] Lymphocyte, Absolute 2.9 10 3/mcL Normal 0.8-3.9 [facility] ([place]) Comment on above: Performed By: #### L D, URIC, ANEU, ADIFF, MDW, GFR, MORPH, CMP, MG, CBC #### [address] [address] Lymphocytes/100 WBC (Bld) 16.3 % Normal 10.0-50.0 [facility] ([place]) Comment on above: Performed By: #### L D, URIC, ANEU, ADIFF, MDW, GFR, MORPH, CMP, MG, CBC #### [address] [address] Monocyte, Absolute 0.6 10 3/mcL Normal 0.2-1.0 [facility] ([place]) Comment on above: Performed By: #### L D, URIC, ANEU, ADIFF, MDW, GFR, MORPH, CMP, MG, CBC #### [address] [address] Monocytes/100 WBC (Bld) 3.5 % Normal 1.7-13.0 A [facility] ([place]) Comment on above: Performed By: #### L D, URIC, ANEU, ADIFF, MDW, GFR, MORPH, CMP, MG, CBC #### [address] [address] Neutrophils/100 WBC (Bld) 78.3 % Normal 37.0-80.0 [facility] ([place]) Comment on above: Performed By: #### L D, URIC, ANEU, ADIFF, MDW, GFR, MORPH, CMP, MG, CBC #### [address] [address] .GFRon 07-21-2022 GFR 93 ml/min/1.73sqm Normal [facility] ([place]) Comment on above: Result Comment: GFR Population [...] Performed By: #### U KEATON, UA #### [address] [address] GFR Non- 77 ml/min/1.73sqm Normal [facility] ([place]) Comment on above: Result Comment: GFR Population [...] 15 mL/min/1.73 square meters Performed By: #### Sandro PUGH UA #### [place] [address] [address] .MDWon 07-21-2022 Monocyte Distribution Width 18.79 Normal 0.00-20.00 [facility] ([place]) Comment on above: Result Comment: For ED adult patients suspected of sepsis, MDW<=20.0 does not rule out sepsis or risk of sepsis Performed By: #### L D, URIC, ANEU, ADIFF, MDW, GFR, MORPH, CMP, MG, CBC #### [place] [id number] .Morphon 07-21-2022 Anisocytosis Ql (Bld) 1+ Normal [facility] ([place]) Comment on above: Performed By: #### AUDREY HORN #### [place] [phone] Large Platelets Few Normal [facility] ([place]) Comment on above: Performed By: #### AUDREY HORN #### Edna [place] [phone] Platelet Estimate Decreased Normal [facility] ([place]) Comment on above: Performed By: #### AUDREY HORN #### [place] [phone] RBC morphology finding Nom (Bld) See Below Normal [facility] ([place]) Comment on above: Performed By: #### AUDREY HORN #### [place] [id number] .NEUABSon 07-21-2022 Neutrophil, Absolute 14.0 10 3/mcL High 2.9-6.2 A [facility] ([place]) Comment on above: Performed By: #### L Alonso, URIC, JENNIFER URIBE MDW, GFR, MORPH, CMP, MG, CBC #### [address] [address] 36on 07-21-2022 36 Name of caller requesting page: Dr. Flori Aquino Phone number of caller: [phone] Facility requesting page: [facility] Reason for page: Pt recently delivered and is in ER with abnormal labs and pre-eclampsia. Provider paged: Dolly [facility] Practice name of paged provider: [facility] Isak Page placed to #: Secure chat Time page was sent or provider contacted: 6:39 pm Method of contact: Secure chat Page content: Pt recently delivered and is now at [facility] with abnormal labs and pre-eclampsia. CB Dr. Flori Aquino [phone] Normal [facility] CAREPLNon 07-21-2022 CAREPLN Problem: Pain - Adul t Goal: Verbalizes/displays adequate comfort level or baseline comfort level Outcome: Progressing Problem: Safety - Adult Goal: Free from fall injury Outcome: Progressing Problem: Chronic Conditions and Co-morbidities Goal: Patient's chronic conditions and co-morbidity symptoms are monitored and maintained or improved Outcome: Progressing Normal [facility] CBCon 07-21-2022 Erythrocyte distribution width (RBC) [Ratio] 23.9 % High 11.5-14.5 [facility] ([place]) Comment on above: Performed By: #### L D, JEYSON, JENNIFER URIBE MDW, GFR, MORPH, CMP, MG, CBC #### [address] [address] Hematocrit (Bld) [Volume fraction] 30.5 % Low 37.0-47.0 [facility] ([place]) Comment on above: Performed By: #### L D, URIC, JENNIFER URIBE MDW, GFR, MORPH, CMP, MG, CBC #### [address] [address] Hgb 9.9 G/dL Low 12.0-16.0 [facility] ([place]) Comment on above: Performed By: #### L D, URIC, ANEU, ADIFF, MDW, GFR, MORPH, CMP, MG, CBC #### [address] [address] MCH (RBC) [Entitic mass] 26.3 pg Low 27.0-31.2 [facility] ([place]) Comment on above: Performed By: #### L D, URIC, ANEU, ADIFF, MDW, GFR, MORPH, CMP, MG, CBC #### [address] [address] MCHC 32.4 G/dL Low 33.0-37.0 [facility] ([place]) Comment on above: Performed By: #### L D, URIC, ANEU, ADIFF, MDW, GFR, MORPH, CMP, MG, CBC #### [address] [address] MCV (RBC) [Entitic vol] 81.1 fL Normal 80.0-94.0 A [facility] ([place]) Comment on above: Performed By: #### L D, URIC, ANEU, ADIFF, MDW, GFR, MORPH, CMP, MG, CBC #### [address] [address] Platelet 90 10 3/mcL Low 130-400 [facility] ([place]) Comment on above: Performed By: #### L D, URIC, ANEU, ADIFF, MDW, GFR, MORPH, CMP, MG, CBC #### [address] [address] Platelet mean volume (Bld) [Entitic vol] 10.1 fL Normal 7.4-10.4 [facility] ([place]) Comment on above: Performed By: #### L D, URIC, ANEU, ADIFF, MDW, GFR, MORPH, CMP, MG, CBC #### [address] [address] RBC 3.76 10 6/mcL Low 4.20-5.40 [facility] ([place]) Comment on above: Performed By: #### L D, URIC, ANEU, JENNIFER, ALESSANDRA, GFR, MORPH, CMP, MG, CBC #### [address] [address] WBC 17.9 10 3/mcL High 4.6-10.8 [facility] ([place]) Comment on above: Performed By: #### L D, URIC, ANEU, JENNIFER, W, GFR, MORPH, CMP, MG, CBC #### [address] [address] CMPon 07-21-2022 Albumin Level 2.6 G/dL Low 3.5-5.0 [facility] ([place]) Comment on above: Performed By: #### Sandro PUGH UA #### [address] [address] Albumin/Globulin [Mass ratio] 0.8 {ratio} Low 1.1-2.5 [facility]) Comment on above: Performed By: #### Sandro PUGH UA #### [address] [address] ALP [Catalytic activity/Vol] 257 U/L High 40-135 [facility]) Comment on above: Performed By: #### Sandro PUGH UA #### [address] [address] ALT [Catalytic activity/Vol] 88 U/L High 14-59 [facility] ([place]) Comment on above: Performed By: #### Sandro PUGH UA #### [address] [address] AST [Catalytic activity/Vol] 98 U/L High 10-40 [facility]) Comment on above: Performed By: #### Sandro PUGH UA #### [address] [address] Bili Total 0.3 mg/dL Normal 0.2-1.0 [facility] ([place]) Comment on above: Result Comment: Use of this assay is not recommended for patients undergoing treatment with eltrombopag due to the potential for falsely elevated results. Performed By: #### U AMICAO, UA #### [address] [address] BUN/Creatinine Ratio 18 ratio Normal 7-27 [facility] ([place]) Comment on above: Performed By: #### U AMICAO, UA #### [address] [address] Calcium [Mass/Vol] 8.2 mg/dL Low 8.4-10.2 [facility] ([place]) Comment on above: Performed By: #### U AMICAO, UA #### [address] [address] Chloride [Moles/Vol] 105 mmol/L Normal 98-107 [facility] ([place]) Comment on above: Performed By: #### U AMICAO, UA #### [address] [address] CO2 [Moles/Vol] 26 mmol/L Normal 22-29 [facility] ([place]) Comment on above: Performed By: #### U AMICAO, UA #### [address] [address] Creatinine [Mass/Vol] 0.90 mg/dL Normal 0.55-1.02 [facility] ([place]) Comment on above: Performed By: #### U AMICAO, UA #### [address] [address] Electrolyte Balance 8.0 mEq/L Normal 4.0-15.0 [facility] ([place]) Comment on above: Performed By: #### U AMICAO, UA #### [address] [address] Globulin 3.3 G/dL Normal [facility] ([place]) Comment on above: Performed By: #### U AMICAO, UA #### [address] [address] Glucose [Mass/Vol] 94 mg/dL Normal 70-105 [facility] ([place]) Comment on above: Performed By: #### U AMICAO, UA #### [facility] [address] [place], [place] [address] Potassium [Moles/Vol] 4.3 mmol/L Normal 3.5-5.1 [facility] ([place]) Comment on above: Performed By: #### U AMICAO, UA #### [facility] [address] [place], [place] [address] Sodium [Moles/Vol] 139 mmol/L Normal 136-145 [facility] ([place]) Comment on above: Performed By: #### U AMICAO, UA #### [place] [address] [place], [place] [address] Total Protein 5.9 G/dL Low 6.4-8.2 [facility] ([place]) Comment on above: Performed By: #### U AMICAO, UA #### [address] [address] Urea nitrogen [Mass/Vol] 16 mg/dL Normal 7-18 [facility] ([place]) Comment on above: Performed By: #### U AMICAO, UA #### [address] [address] LABORATORYOrdered By: Zully Alcala on 07-21-2022 Appearance [...] AO Auto Urine SS UA pH 7.0 (2/21/23 6:29 PM) Invalid Interpretation Code 5.0 - [...] LDHon 07-21-2022 LDH 581 U/L High 81-234 [facility] ([place]) Comment on above: Performed By: #### L D, URIC, ANEU, ADIFF, MDW, GFR, MORPH, CMP, MG, CBC #### [place] [address] [place], [place] [address] MGon 07-21-2022 Magnesium [Mass/Vol] 2.4 mg/dL Normal 1.8-2.4 [facility] ([place]) Comment on above: Performed By: #### U KEATON, UA #### [place] [address] [address] UAon 07-21-2022 Color (U) Yellow Normal [facility] ([place]) Comment on above: Performed By: #### Ronny HARRY, BMP #### [place] [address] [address] Glucose (U) [Mass/Vol] Negative Normal Negative [facility] ([place]) Comment on above: Performed By: #### Ronny HARRY, BMP #### [place] [address] [address] Ketones Ql (U) Negative Normal Negative [facility] ([place]) Comment on above: Performed By: #### Ronny HARRY, BMP #### [place] [address] [address] UA Appear Clear Normal Clear [facility] ([place]) Comment on above: Performed By: #### Ronny HARRY, BMP #### [address] [address] UA Blood Trace Abnormal Negative [facility] ([place]) Comment on above: Performed By: #### Ronny HARRY, BMP #### [place] [address] [address] UA Leuk Est Negative Normal Negative [facility] ([place]) Comment on above: Performed By: #### Ronny FR, BMP #### [place] [address] [address] UA Nitrite Negative Normal Negative [facility] ([place]) Comment on above: Performed By: #### Ronny HARRY, BMP #### [place] [address] [address] UA pH 7.0 Normal 5.0 - 8.0 [facility] ([place]) Comment on above: Performed By: #### Ronny HARRY, BMP #### [place] [address] [address] UA Protein Negative Normal Negative [facility] ([place]) Comment on above: Performed By: #### G FR, BMP #### [address] [address] UA Spec Grav 1.020 Normal 1.015-1.025 [facility] ([place]) Comment on above: Performed By: #### G FR, BMP #### [address] [address] UA Specimen Type Clean Catch Normal [facility] ([place]) Comment on above: Performed By: #### G FR, BMP #### [address] [address] UA Urobilinogen 0.2 E.U./dL Normal 0.2-1.0 [facility] ([place]) Comment on above: Performed By: #### G FR, BMP #### [address] [address] Urobilinogen (U) [Mass/Vol] Negative Normal Negative [facility] ([place]) Comment on above: Performed By: #### G FR, BMP #### [address] [address] URICon 07-21-2022 Uric Acid Lvl 6.8 mg/dL High 2.6-6.2 [facility] ([place]) Comment on above: Performed By: #### U AMICAO, UA #### [address] [address] 36on 07-20-2022 36 Please call patient to be seen in 3 days for BP check. Thanks! [facility] 42on 07-20-2022 42 Met with patient to [...] continue to monitor and encourage. Normal [facility] CARECOORDon 07-20-2022 CARECOORD Sw consult due to hx of thc. Met with mother of baby/mob at bedside. Mob delivered twins (Frederic and Rohini Mir). Father of baby Gino Mir [birth year]01-94 in chair holding one baby. Fob appeared very supportive. Mob also attentive to babies. Mob and fob live together with a roommate, as well as mob's other dtr Viktoria Ambrizter 01-09-19. Fob has another dtr Sachin alberto 07-26-05 who [...] either in that room or outside on [facility]. States plans to cut down now that she has delivered as her heartburn will be better. She denied use of any other drugs. States last use was 07-16-22.Tox on 07-17-22 was negative for all substances including thc. Sw discussed negative effects of continued use and also discussed that a referral will be made to [facility]. Parents expressed understanding and states they were involved very briefly a couple of years ago due to maddy's daughter visiting from [place] and had not yet enrolled in school. OB resources discussed. [facility] closed today due to Presidents day, SW will make referral tomorrow and they can follow in community. OK FOR DC [facility] CARECOARSENIO 26 year old admitted for induction of [...] Denies any concerns at this time. Normal [facility] [employer] [facility] Laboratory - Drug toxicology Ordered By: Rain Lewis on 07-20-2022 Cannabinoids Screen (U) [Mass/Vol] Negative CardiOx No Panel InformationOrdered By: Rain Lewis on 07-20-2022 [facility] 07-20-2022 Progress Note VAGINAL DELIVERY [...] check. Denies any need for control today. [facility] 42on 07-19-2022 42 PT seen regarding of [...] milk production discussed. Pt told to call [facility] tomorrow to obtain insurance covered breast pump. Family shown how to use wall touch pad to call for LC. Pt and family receptive to all education. Normal [facility] Progress Noteon 07-19-2022 Progress Note Up to [...] Will report to assigned nurse. Normal [facility] Progress Note Nutrition rescreen completed. Patient assigned a level 1. Normal [facility] Progress Note --- Attestation signed by Dolly Saldivar MD at 07/19/2022 11:41 AM Hospital Care (Independent): I independently saw and evaluated the patient. I agree with the findings and plan of care as documented in the resident's note. VAGINAL DELIVERY POST DAY # 1 Catalina [...] DO Los Ling MD 07/19/2022, 11:24 AM Normal [facility] CAREPLNon 07-18-2022 CAREPLN Problem: Vaginal Bir th [...] facility with appropriate resources Outcome: Completed Normal [facility] Comprehensive metabolic 1998 panelon 07-18-2022 Albumin [Mass/Vol] 3.2 g/dL Low 3.5 - 5.0 g/dL [facility] ALP [Catalytic activity/Vol] 295 U/L High 38 - 126 U/L [facility] ALT [Catalytic activity/Vol] 12 U/L 0 - 34 U/L [facility] Anion gap [Moles/Vol] 6 mmol/L 3 - 13 mmol/L [facility] AST [Catalytic activity/Vol] 52 U/L High 15 - 46 U/L [facility] Bilirubin [Mass/Vol] 0.7 mg/dL 0.2 - 1 .3 mg/dL [facility] Calcium [Mass/Vol] 8.7 mg/dL 8.4 - 10. 4 mg/dL [facility] Chloride [Moles/Vol] 106 mmol/L 98 - 10 7 mmol/L [facility] CO2 [Moles/Vol] 23 mmol/L 22 - 30 mmol/L [facility] Creatinine [Mass/Vol] 0.87 mg/dL 0.52 - 1.04 mg/dL [facility] GFR/1.73 sq M.predicted MDRD (S/P/Bld) [Vol rate/Area] - PINF [facility] Comment on above: Calculation based on the Chronic Kidney Disease Epidemiology Collaboration (CKD-EPI) equation refit without adjustment for race Glucose [Mass/Vol] 86 mg/dL 70 - 100 mg/dL [facility] Interpretation and review of laboratory results Abnormal [facility] Potassium [Moles/Vol] 4.5 mmol/L 3.5 - 5.1 mmol/L [facility] Protein [Mass/Vol] 6.3 g/dL 6.3 - 8.2 g/dL [facility] Sodium [Moles/Vol] 135 mmol/L 135 - 145 mmol/L [facility] Urea nitrogen [Mass/Vol] 16 mg/dL 7 - 17 mg/dL [facility] Slightly Hemolyzed. Interpret K+, ALKP, AST, TP, ALB with caution. [facility] Creatinine (U) [Mass/Vol]on 07-18-2022 CREATININE, URINE 132.6 mg/dL No Range [facility] Labor and Delivery Noteon Labor and Delivery Note ------- Attestation signed by Dolly Saldivar MD at 07/18/2022 10:57 PM Procedures or Surgery: I was present for all raphael elements of the procedure or surgery as described in the resident note. Vaginal Delivery Note Department of Obstetrics and Gynecology Patient: Catalina Marvin : 1995 Date of delivery: 07/18/2022 Pre-operative Diagnosis: Catalina Marvin at 38w1d 1. Term 2. Di/Di Twins 3. PreEwoSF Post-operative Diagnosis: Live Born female, Live Born female Delivering [employer]inter(s): Dr. Dolly Saldivar; Dr. Linwood Garcia Information: Information for the patient's : Thomas Marvin [[id number]] Information for the patient's : Thomas Marvin [[id number]] Information for the patient's : Thomas Marvin [[id number]] Information for the patient's : Thomas Marvin TWO [[id number]] Description: normalx2 Meconium Noted: No Anesthesia: epidural [...] LINWOOD Garcia DO 07/18/2022, 7:55 PM Normal [facility] Laboratory - Urinalysison Protein (U) [Mass/Vol] 45 mg/dL High 0 - 1 2 mg/dL [facility] No Panel Informationon 07-18 Interpretation and review of laboratory results Abnormal [facility] Progress Noteon 07-18-2022 Progress Note Notified by [...] Pulse: 75 Resp: Temp: SpO2: Normal [facility] Blood type and Crossmatch pa sabas (Bld)on 07-17-2022 ABO group Nom (Bld) O [facility] Blood group antibody screen GEL Ql Negative [facility] D Ag Ql (RBC) Positive [facility] CAREPLNon 07-17-2022 CAREPLN Problem: Vaginal [...] with appropriate resources Outcome: Progressing Normal [facility] CBC panel Auto (Bld)Ordered By: Rosalind Hyman on 07-17-2022 Erythrocyte distribution width (RBC) [Ratio] 23.2 % High 11.5 - 14.5 % [facility] Comment on above: I-Anisocytosis Hematocrit (Bld) [Volume fraction] 34.0 % Low 35.0 - 47.0 % [facility] Hemoglobin (Bld) [Mass/Vol] 11.0 g/dL Low 11.7 - 16.0 g/dL [facility] Interpretation and review of laboratory results Abnormal [facility] MCH (RBC) [Entitic mass] 26.7 pg 26.0 - 34.0 pg [facility] MCHC (RBC) [Mass/Vol] 32.5 % 32.0 - 36.0 % [facility] MCV (RBC) [Entitic vol] 82.3 fL 80.0 - 98.0 fL [facility] Platelet mean volume (Bld) [Entitic vol] 10.4 fL 7.4 - 12.4 fL [facility] Platelets (Bld) [#/Vol] 157 10*3/uL 140 - 440 10*3/uL [facility] RBC (Bld) [#/Vol] 4.12 10*6/uL 3.8 - 5.20 10*6/uL [facility] WBC (Bld) [#/Vol] 8.5 10*3/uL 3.6 - 10.7 10*3/uL [facility] 36on 07-16-2022 36 S: Patient 's mother [...] Protocols used: Information Only Call - No [facility] Progress [facility] 07-16-2022 Progress Note Patient scheduled [...] . Patient will discuss further with provider senior environmental practice leader during induction. [facility] Progress Note PLAN: Dichorionic diamniotic twin in [...] . Patient will discuss further with provider senior environmental practice leader during induction. ASSESSESMENT: Diagnosis Plan 1. Dichorionic [...] 07/16/22 No follow-ups on file. Normal [facility] US BIOPHYSICAL PROFILE WO NON STRESS TESTINGon 07-11-2022 US BIOPHYSICAL PROFILE WO NON STRESS TESTING - OBSTETRICS REPORT (Signed Final 07/11/2022 05:54 pm) - PATIENT INFO: ID #: [id number] : [birth year] (26 yrs)(F) Name: CATALINA MARVIN Visit Date: 07/10/2022 10:27 am - PERFORMED BY: Attending: José Suarez MD Performed By: Nancy Hinson RDMS Referred By: GENESIS POLK Location: [facility] [employer] ARCH[employer] [facility] Visit Type: [facility] [employer] ARCHITECT - SERVICE(S) PROVIDED: BPP w/out NST 76672 BPP w/out NST 22906 - INDICATIONS: Twin , dichorionic/diamniotic, third O30.043 trimester Encounter for supervision of other normal Z34.83 , third trimester 37 weeks gestation Z3A.37 BPP's/ Di Di twins/ EDC 07-31-22 = 37w0d - EVALUATION (FETUS A): Num Of Fetuses: 2 Preg. Location: Intrauterine Heart Rate(bpm): 151 Cardiac Activity: Present Lie: Transverse Presentation: Cephalic Placenta: not evaluated Amniotic Fluid MONET FV: Appropriate for gestational age Largest Pocket(cm) 2.51 - BIOPHYSICAL EVALUATION (FETUS A): Amniotic F.V: Within normal limits F. Tone: Observed F. Movement: Observed Score: 8/8 F. Breathing: Observed - BIOMETRY (FETUS A): - GESTATIONAL AGE (FETUS A): Clinical SAPNA: 37w 0d SAPNA: 07/31/22 Best: 37w 0d Det. By: Clinical SAPNA SAPNA: 07/31/22 - EVALUATION (FETUS B): Num Of Fetuses: 2 Preg. Location: Intrauterine Heart Rate(bpm): 140 Cardiac Activity: Present Lie: Transverse superior Presentation: Transverse, head maternal right Placenta: not evaluated Amniotic Fluid MONET FV: Within normal limits Largest Pocket(cm) 2.18 - BIOPHYSICAL EVALUATION (FETUS B): Amniotic F.V: Within normal limits F. Tone: Observed F. Movement: Observed Score: 8/8 F. Breathing: Observed - BIOMETRY (FETUS B): - GESTATIONAL AGE (FETUS B): Clinical SAPNA: 37w 0d SAPNA: 07/31/22 Best: 37w 0d Det. By: Clinical SAPNA SAPNA: 07/31/22 - - José Suarez MD Electronically Signed Final Report 07/11/2022 05:54 pm - IMPRESSION: Live dichorionic/diamniotic twin with and EDC [...] normal ultrasound cannot guarantee a normal outcome.* Normal [facility] 36on 07-10-2022 36 Spoke with patient t his has been completed they will pick it up after her OB visit today [facility] Progress Noteon 07-10-2022 Progress Note Routine Off [...] weeks Follow Up: 07/16/2022 Genesis Polk MD 07/10/22 Normal [facility] 36on 07-09-2022 36 Name of caller: Zulay Marvin Contact phone number: [phone] Relationship to Patient: family member patient and mother Provider: Dr Polk Practice: [facility] Chief Complaint/Reason for Call: Pt's mother calling to check the status of FMLA paperwork. Best time of day caller can be reached: Any Patient advised that office/PCP has 24-48 business hours to return their call: Yes Normal [facility] US BIOPHYSICAL PROFILE WO NON STRESS TESTINGon 07-04-2022 US BIOPHYSICAL PROFILE WO NON STRESS TESTING - OBSTETRICS REPORT (Signed Final 07/04/2022 04:04 pm) - PATIENT INFO: ID #: [id number] : [birth year] (26 yrs)(F) Name: CATALINA MARVIN Visit Date: 07/03/2022 11:17 am - PERFORMED BY: Attending: José Suarez MD Performed By: Analisa Fitzgerald RDMS Referred By: MARK DOWD MD Location: [facility] [employer] ARCH[employer] [place] [facility] Visit Type: [facility] [employer] ARCHITECT - SERVICE(S) PROVIDED: [place] [id number] [place] [address] BPP w/out NST 75737 BPP w/out NST 02355 - INDICATIONS: Twins/ Growth/ BPP/ EDC 07/31/22 = 36w0d Twin , dichorionic/diamniotic, third trimester - O30.043 36 weeks gestation of - Z3A.36 - EVALUATION (FETUS A): Num Of Fetuses: 2 Preg. Location: Intrauterine Heart Rate(bpm): 160 Cardiac Activity: Regular rhythm Lie: Maternal LT Presentation: Vertex Placenta: Anterior grade 2 no previa P. Cord Insertion: Normal Amniotic Fluid MONET FV: Appears WNL Largest Pocket(cm) 4.13 - BIOPHYSICAL EVALUATION (FETUS A): Amniotic F.V: Within normal limits F. Tone: Observed F. Movement: Observed Score: 8/8 F. Breathing: Observed - BIOMETRY (FETUS A): BPD: 89.7 mm G.Age: [...] % FW Discordancy: 0 \ 11 % - GESTATIONAL AGE (FETUS A): Clinical SAPNA: 36w 0d SAPNA: 07/31/22 U/S Today: 36w 4d SAPNA: 07/27/22 Best: 36w 0d Det. By: Clinical SAPNA SAPNA: 07/31/22 - TARGETED ANATOMY (FETUS A): Central Nervous System [...] appearance Lt Outflow Tract: Not visualized Cardiac [place]: Normal appearance Diaphragm: Normal appearance 3 Vessel [...] Not visualized Comment: Renal arteries appear normal. - EVALUATION (FETUS B): Num Of Fetuses: 2 Preg. Location: Intrauterine Heart Rate(bpm): 155 Cardiac Activity: Regular rhythm Lie: Maternal RT Presentation: Vertex Placenta: Posterior grade 2 no previa P. Cord Insertion: Not Visualized Amniotic Fluid MONET FV: Appears WNL Largest Pocket(cm) 5.68 - BIOPHYSICAL EVALUATION (FETUS B): Amniotic F.V: Within normal limits F. Tone: Observed F. Movement: Observed Score: 01/05 F. Breathing: Observed - BIOMETRY (FETUS B): BPD: 81.8 mm G.Age: [...] - (more content not included)... Normal [facility] US OB FOLLOW UP TRANSABDOMIN AL APPROACHon 07-04-2022 US OB FOLLOW UP TRANSABDOMINAL APPROACH - OBSTETRICS REPORT (Signed Final 07/04/2022 04:04 pm) - PATIENT INFO: ID #: [id number] : [birth year] (26 yrs)(F) Name: CATALINA MARVIN Visit Date: 07/03/2022 11:17 am - PERFORMED BY: Attending: José Suarez MD Performed By: Analisa Fitzgerald RDMS Referred By: MARK DOWD MD Location: [facility] [employer] ARCHITECT [facility] Visit Type: [facility] [employer] ARCHITECT - SERVICE(S) [place]: [place] [id number] [place] [address] BPP w/out NST 47409 BPP w/out NST 36795 - INDICATIONS: Twins/ Growth/ BPP/ EDC 07/31/22 = 36w0d Twin , dichorionic/diamniotic, third trimester - O30.043 36 weeks gestation of - Z3A.36 - EVALUATION (FETUS A): Num Of Fetuses: 2 Preg. Location: Intrauterine Heart Rate(bpm): 160 Cardiac Activity: Regular rhythm Lie: Maternal LT Presentation: Vertex Placenta: Anterior grade 2 no previa P. Cord Insertion: Normal Amniotic Fluid MONET FV: Appears WNL Largest Pocket(cm) 4.13 - BIOPHYSICAL EVALUATION (FETUS A): Amniotic F.V: Within normal limits F. Tone: Observed F. Movement: Observed Score: 8/8 F. Breathing: Observed - BIOMETRY (FETUS A): BPD: 89.7 mm G.Age: [...] % FW Discordancy: 0 \ 11 % - GESTATIONAL AGE (FETUS A): Clinical SAPNA: 36w 0d SAPNA: 07/31/22 U/S Today: 36w 4d SAPNA: 07/27/22 Best: 36w 0d Det. By: Clinical SAPNA SAPNA: 07/31/22 - TARGETED ANATOMY (FETUS A): Central Nervous System [...] appearance Lt Outflow Tract: Not visualized Cardiac [place]: Normal appearance Diaphragm: Normal appearance 3 Vessel [...] Not visualized Comment: Renal arteries appear normal. - EVALUATION (FETUS B): Num Of Fetuses: 2 Preg. Location: Intrauterine Heart Rate(bpm): 155 Cardiac Activity: Regular rhythm Lie: Maternal RT Presentation: Vertex Placenta: Posterior grade 2 no previa P. Cord Insertion: Not Visualized Amniotic Fluid MONET FV: Appears WNL Largest Pocket(cm) 5.68 - BIOPHYSICAL EVALUATION (FETUS B): Amniotic F.V: Within normal limits F. Tone: Observed F. Movement: Observed Score: 01/05 F. Breathing: Observed - BIOMETRY (FETUS B): BPD: 81.8 mm G.Age: [...] - (more content not included)... Normal [facility] Progress Noteon 07-03-2022 Progress Note The patient is a 26 y.o. 36w0d. OB History 3 Para 1 Term 1 AB 1 Living 1 SAB IAB 1 Ectopic Multiple Live Births 1 She is here for her third iron infusion. Iron Deficit (0.24 x Weight in kg prior to x Hgb deficit ([place] vs actual) + 500mg) = 538 Todays Dose: 138 (Maximum Dose 200mg) Remaining dose: 0 mg FHT Cat I/Cat I Patient to come back for subsequent infusion between 24hrs to one week from today Priya Dao DO 07/03/2022 7:[address] [facility] Progress Note 07/03/22 Pt would like to labor as twins are vtx x2. Baby A EFW >baby B. Discussed IOL at 38 weeks. Will need induction papers signed next week. CA Normal [facility] Progress Note A substitute nurse was offe red to be present during her exam. The patient: declined Normal [facility] Progress Note Routine Off ice Visit: 3rd [...] Follow Up: 07/10/2022 Genesis Polk MD 07/03/[address] [facility] 36on 07-01-2022 36 Name of caller: Shine nieto Contact phone number: [phone] Relationship to Patient: patient Provider: Dr. Polk Practice: [facility] [employer] Chief Complaint/Reason for Call: Patient Catalina calling in and states that she does not want the appointments cancelled. Patient is still coming for her appointment on Wednesday07-03-2022 for U/S and AISHWARYA. Best time of day caller can be reached: Any Patient advised that office/PCP has 24-48 business hours to return their call: N/A [facility] 36 Name of caller: zulay Contact phone number: [phone] Relationship to Patient: family member patient and mother Provider: Jakob Practice: [facility] Chief Complaint/Reason for Call: Pt mother calling because she needs the appointments for Wednesday cancelled due to pt's not having FMLA paperwork to miss work. Please advise. Best time of day caller can be reached: Any Patient advised that office/PCP has 24-48 business hours to return their call: [facility] 36 Yes, pt needs the ultrasound as soon as possible. Please contact her to get this rescheduled rip [facility] 36 Name of caller: Shine Marvin Contact phone number: [phone] Relationship to Patient: patient Provider: Jakob Practice: [facility] Chief Complaint/Reason for Call: Pt called to cancel her US appt today for her TWINS. growth, BPP and AISHWARYA. She has another US on 07/10/2022 and the next availability for an US is 07/06/2022 at [place]. Routine Visit on 07/03/2022 was not canceled. Will provider like pt to come in before 07/10/2022 for an US? Please advise. Best time of day caller can be reached: any Patient advised that office/PCP has 24-48 business hours to return their call: Yes [facility] 36on 06-29-2022 36 Bjorn Do you have her FMLA? [facility] Progress Noteon 06-29-2022 Progress Note The patient is a 26 y.o. 35w3d. OB History 3 Para 1 Term 1 AB 1 Living 1 SAB IAB 1 Ectopic Multiple Live Births 1 She is here for her second iron infusion. Iron Deficit (0.24 x Weight in kg prior to x Hgb deficit ([place] vs actual) + 500mg) = 338 Todays Dose: 200 (Maximum Dose 200mg) Remaining dose: 138 mg FHT Cat I / Cat I Patient to come back for subsequent infusion between 24hrs to one week from today [facility] 36on 06-25-2022 36 S: Patient spoke hilda dunn [facility] nurse regarding problem-vomiting B: Onset of symptoms/concern [...] - Morning Sickness (Nausea and Vomiting of )-ADULT-[facility] 36 Patients mother is calling in and [...] Protocols used: Information Only Call - No [facility] 36 Name of caller: Zulay Marvin Contact phone number: [phone] Relationship to Patient: family member mother Provider: [...] business hours to return their call: No [facility] 36 S Pt called the Clinical Access Center. B CAC RN returning call to pt at [phone]. A Pt states she is 34 weeks [...] Morning Sickness (Nausea and Vomiting of )-ADULT-[place] [facility] 36 Name of caller: Shine nieto Contact phone number: [phone] Relationship to Patient: patient Provider: Yariel Practice: [...] 24-48 business hours to return their call: [employer] [facility] 36on 06-24-2022 36 Mother called to winsome sanchez regarding infusion at [place]. Advised in process however this may take several days. Mother advised daughter is feeling weak. Mother advised pt needs to report to triage at [facility] as soon as she can. Mother agreed and will have her daughter report there. Her will take her as soon as he is off work. [facility] 36 Received infusion fo rm from [facility].Scanned to media. This will require a prior authorization . Will route to Dr. Saldivar to complete the form. Will need an icd and procedure code before prior authorization can be completed. [facility] 36 Spoke with [place] infusion center. They will fax the order to the office. Will fax back once completed. Mother notified. [facility] 36 Name of caller: Zulay Contact phone number: [phone] Relationship to Patient: family member patient and mother Provider: Dr. Saldivar Practice: [facility] Location Chief Complaint/Reason for Call: Pts mother is calling again to check on the status of their request for pt to have infusion done at [facility] (see nurse triage message from 06.23.2022) She states that yesterday when they spoke she was given the wrong fax number and needs to update that to . She states that this needs done rip. Please advise. Best time of day caller can be reached: Any Patient advised that office/PCP has 24-48 business hours to return their call: No Normal [facility] Ferritin [Mass/Vol]on 2022 Interpretation and review of laboratory results Normal [facility] Iron and Iron binding capaci ty panelon 06-24-2022 Interpretation and review of laboratory results Abnormal [facility] Iron [Mass/Vol] 46 ug/dL 37 - 170 ug/dL [facility] [employer] Iron binding capacity [Mass/Vol] 791 ug/dL High 261 - 497 ug/dL [facility] [employer] Iron saturation [Mass fraction] 6 % Low 15 - 50 % [facility] Laboratory - Chemistry and C hemistry - challengeon 06-24-2022 Ferritin [Mass/Vol] 6 ng/mL 6 - 137 ng/mL [facility] [employer] Progress Noteon 06-24-2022 Progress Note The patient is a 26 y.o. 34w5d. OB History 3 Para 1 Term 1 AB 1 Living 1 SAB IAB 1 Ectopic Multiple Live Births 1 She is here for her first iron infusion. Iron Deficit (0.24 x Weight in kg prior to x Hgb deficit ([place] vs actual) + 500mg) = 538 Todays Dose: 200 (Maximum Dose 200mg) Remaining dose: 338 mg FHT Cat I /Cat I Patient to come back for subsequent infusion between 24hrs to one week from today JARRED SIMON DO 06/24/2022 9:[address] [facility] 36on 06-23-2022 36 S: Patient's mom spo ke with CAC nurse regarding patient iron infusion. B: Onset of symptoms/concern today. A: Patient's mom reports they did not receive call back from office regarding having iron infusion at [facility]. Patient would like to have the [...] call back with new or worsening symptoms. [facility] 36 Reason for Dispositi on Caller has already spoken with another triager or PCP AND has further questions AND triager able to answer questions. Protocols used: No Contact or Duplicate Contact [id number] [address] [facility] 36 S: Patient's mom spo ke with CAC nurse regarding patient SAPNA 07/30/22 B: Onset of symptoms for couple days. A: Seen in the ER yesterday at [facility] Mom asking if she can get her iron infusion can be done at [facility], , fax [phone]. Mom reports she is very disoriented d/t iron being low and with twins. Was to get it down at [facility] and [place] is closer for her. Called the patient: She states that [place] is [place] hour away, that hospital, is [...] to answer question Protocols used: Medication Question [id number] [facility] 36 Message released to patient as written. Patient's further questions if applicable: no Were all questions from office addressed or relayed to the patient from encounter: yes [facility] 36 Left message to retu rn call [facility] 36 ----- Message from Antoinette Saldivar MD sent at 06/23/2022 10:35 AM EST ----- Let pt know she passed her glucola. Her hgb 8.7, which is lower then what it was earlier in . I would advise an iron infusion at triage. She can go anytime. Typically she will need to get 2-3 infusions over a few days- weeks time [facility] 36on 06-22-2022 36 S: Patient called [facility] clinical access center with complaint of [...] she will go to [facility] L&D R: [facility] labor and delivery Message to the office for review by the provider and needs recommendation from Provider for treatment going forward. Reason for Disposition MODERATE-SEVERE abdominal pain Protocols used: - Labor - [id number] [facility] Progress Noteon 06-22-2022 Progress Note --- Attestation signed by Andre Foreman III, MD at 06/22/2022 3:28 PM Hospital Care (Independent): I independently saw and evaluated the patient. I agree with the findings and plan of care as documented in the resident's note. Department of Obstetrics and Gynecology Labor and [...] Pain: No PHYSICAL EXAM: Vital Signs: VS wnl-reviewed/Respiratio ns normal effort Vitals: 06/22/22 1406 06/22/22 1430 [...] Pain assessment and plan: None DISCUSSED WITH [facility] PROVIDER: Dr. Lucero DISPOSITION: Discharge to Home [facility] Progress Noteon 06-19-2022 Progress Note --- Attestation signed by Aleisha Bertrand MD at 06/19/2022 7:47 PM Hospital Care (Independent): I independently saw and evaluated the patient. I agree with the findings and plan of care as documented in the resident's note. Department of Obstetrics and Gynecology Labor and [...] as needed for indigestion or heartburn. Historical ProviderMD ferrous sulfate (FerrouSul) 325 (65 Fe) MG [...] Pain: No PHYSICAL EXAM: Vital Signs: VS wnl-reviewed/Respiratio ns normal effort Vitals: 06/19/22 1720 BP: 125/76 [...] VSS. VTX/VTX on BSUS. Will continue to [facility]. Marion Mckoy, DO 06/19/2022 5:39 PM Cat I FHT. No decels noted. Will send home with return precautions. FREDERIC ROCK, DO 06/19/2022 7:40 PM IMPRESSION: Reactive NST , Cat I FHT Pain assessment and plan: None DISCUSSED WITH [facility] PROVIDER: Dr. Dowd DISPOSITION: Discharge to Home [facility] Progress Note Reviewed si/sx of labor, FM and kick counts, and when to go to L&D. Does not need to call office before going to triage. Normal [facility] Progress Note Patient not schedule d for [...] to send her to triage). Normal [facility] Progress Note taking iron, feels lightheaded at times, will recheck hgb and potential IV iron if needed Advised increasing hydration and using compression stockings Normal [facility] Progress Note PLAN: Anemia during taking iron, [...] Follow up for AISHWARYA, BPP weekly. Normal [facility] BIOPHYSICAL PROFILE WO NON STRESS TESTINGon 06-07-2022 US BIOPHYSICAL PROFILE WO NON STRESS TESTING - OBSTETRICS REPORT (Signed Final 06/07/2022 03:23 pm) - PATIENT INFO: ID #: [id number] : [birth year] (26 yrs)(F) Name: CATALINA MARVIN Visit Date: 06/05/2022 01:47 pm - PERFORMED BY: Attending: José Suarez MD Performed By: Nancy Hinson RDMS Referred By: MARK DOWD MD Location: [facility] [employer] [facility] Visit Type: [facility] [employer] ARCHIT[employer] - SERVICE(S) [place] [address] BPP w/out NST 14638 BPP w/out NST 43207 [place] [address] - INDICATIONS: Di/ Di twins growth/ EDC 3 = 32w0d 32 weeks gestation Z3A.32 Twin , unable to determine O30.092 number of placenta and number of amniotic sacs, second trimester Twin , unable to determine O30.092 number of placenta and number of amniotic sacs, second trimester - EVALUATION (FETUS A): Num Of Fetuses: 2 Preg. Location: Intrauterine Heart Rate(bpm): 154 Cardiac Activity: Present Lie: Maternal LT Presentation: Cephalic Placenta: Anterior Amniotic Fluid MONET FV: Within normal limits Largest Pocket(cm) 4.13 - BIOPHYSICAL EVALUATION (FETUS A): Amniotic F.V: Within normal limits F. Tone: Observed F. Movement: Observed Score: 01/05 F. Breathing: Observed - BIOMETRY (FETUS A): BPD: 80.5 mm G.Age: [...] % FW Discordancy: 0 \ 13 % - GESTATIONAL AGE (FETUS A): Clinical SAPNA: 32w 0d SAPNA: 07/31/22 U/S Today: 33w 3d SAPNA: 07/21/22 Best: 32w 0d Det. By: Clinical SAPNA SAPNA: 07/31/22 - TARGETED ANATOMY (FETUS A): Central Nervous System [...] visualized Lt Outflow Tract: Not visualized Cardiac [place]: Normal appearance Diaphragm: Normal appearance 3 Vessel [...] Normal 3-vessel Comment: Renal arteries appear normal. - EVALUATION (FETUS B): Num Of Fetuses: 2 Preg. Location: Intrauterine Heart Rate(bpm): 144 Cardiac Activity: Present Lie: Maternal RT Presentation: Cephalic Placenta: Posterior grade 2 no previa P. Cord Insertion: Not Visualized Amniotic Fluid MONET FV: Within normal limits Largest Pocket(cm) 4.49 - BIOPHYSICAL EVALUATION (FETUS B): Amniotic F.V: Within normal limits F. Tone: Observed F. Movement: Observed Score: 01/05 F. Breathing: Observed - BIOMETRY (FETUS B): BPD: 73.9 mm G.Age: 29w 5d 1 % OFD: 100.5 mm HC: 278.5 mm G.Age: 30w 3d 1 % AC: 293.1 mm G.Age: 33w (more content not included)... [facility] OB FOLLOW UP TRANSABDOMIN AL APPROACHon 06-07-2022 OB FOLLOW UP TRANSABDOMINAL APPROACH - OBSTETRICS REPORT (Signed Final 06/07/2022 03:23 pm) - PATIENT INFO: ID #: [id number] : [birth year] (26 yrs)(F) Name: CATALINA MARVIN Visit Date: 06/05/2022 01:47 pm - PERFORMED BY: Attending: José Suarez MD Performed By: Nancy Hinson RDMS Referred By: MARK DOWD MD Location: [facility] [employer] AR[employer] [facility] Visit Type: [facility] [employer] ARCH[employer] - SERVICE(S) PROVIDED: [place] [address] BPP w/out NST 38220 BPP w/out NST 54120 [place] [address] - INDICATIONS: Di/ Di twins growth/ EDC 07-31-22 = 32w0d 32 weeks gestation Z3A.32 Twin , unable to determine O30.092 number of placenta and number of amniotic sacs, second trimester Twin , unable to determine O30.092 number of placenta and number of amniotic sacs, second trimester - EVALUATION (FETUS A): Num Of Fetuses: 2 Preg. Location: Intrauterine Heart Rate(bpm): 154 Cardiac Activity: Present Lie: Maternal LT Presentation: Cephalic Placenta: Anterior Amniotic Fluid MONET FV: Within normal limits Largest Pocket(cm) 4.13 - BIOPHYSICAL EVALUATION (FETUS A): Amniotic F.V: Within normal limits F. Tone: Observed F. Movement: Observed Score: 01/05 F. Breathing: Observed - BIOMETRY (FETUS A): BPD: 80.5 mm G.Age: [...] % FW Discordancy: 0 \ 13 % - GESTATIONAL AGE (FETUS A): Clinical SAPNA: 32w 0d SAPNA: 07/31/22 U/S Today: 33w 3d SAPNA: 07/21/22 Best: 32w 0d Det. By: Clinical SAPNA SAPNA: 07/31/22 - TARGETED ANATOMY (FETUS A): Central Nervous System [...] visualized Lt Outflow Tract: Not visualized Cardiac [place]: Normal appearance Diaphragm: Normal appearance 3 Vessel [...] Normal 3-vessel Comment: Renal arteries appear normal. - EVALUATION (FETUS B): Num Of Fetuses: 2 Preg. Location: Intrauterine Heart Rate(bpm): 144 Cardiac Activity: Present Lie: Maternal RT Presentation: Cephalic Placenta: Posterior grade 2 no previa P. Cord Insertion: Not Visualized Amniotic Fluid MONET FV: Within normal limits Largest Pocket(cm) 4.49 - BIOPHYSICAL EVALUATION (FETUS B): Amniotic F.V: Within normal limits F. Tone: Observed F. Movement: Observed Score: 8/8 F. Breathing: Observed - BIOMETRY (FETUS B): BPD: 73.9 mm G.Age: 29w 5d 1 % OFD: 100.5 mm HC: 278.5 mm G.Age: 30w 3d 1 % AC: 293.1 mm G.Age: 33w (more content not included)... [facility] Progress Noteon 06-05-2022 Progress Note Routine Off [...] placed in this encounter. Follow Up: 06/19/[address] [facility] 36on 05-28-2022 36 Left message to retu rn call [facility] 36 ----- Message from Mark Dowd MD sent at 05/28/2022 7:53 AM EST ----- Please notify patient that her 1hr glucose test was normal but she is anemic. I sent in a prescription for iron supplement. Thanks. [facility] Progress Noteon 05-20-2022 Progress Note Will return next babak k for growth US and BPP. [facility] Progress Note Has not yet done 1hr gTT. Stressed importance of doing RIP. Normal [facility] Progress Note ASSESSESMENT: Diagnosis Plan 1. care, [...] extremities. Abdomen soft nontender Normal resp effort Makr Dowd MD 05/20/22 Follow up in about 2 weeks (around 06/03/2022) for growth US with BPP and OB appt. Normal [facility] ADDENDUMNOTEon 05-06-2022 ADDENDUMNOTE Addended by: MARK DOWD I. on: 05/28/2022 07:53 AM Modules accepted: Orders [facility] ADDENDUMNOTE Addended by: LARRY PURCELL on: 05/06/2022 04:21 PM Modules accepted: Orders [facility] Progress Noteon 05-06-2022 Progress Note ASSESSESMENT: Diagnosis [...] (around 05/20/2022) for OB Appointment. Normal [facility] Progress Note Orders placed for CB C and 1hr gTT. Flu and TDap today. Normal [facility] Progress Note Growth US today show ed AGA babies, baby A EFW 1292gm 65% AC 80% bab B EFW 1262gm 63% AC 83% MONET wnl, 2% discordancy. Will repeat growth US in 4 weeks and start weekly BPPs at 32 weeks. Normal [facility] US OB FOLLOW UP TRANSABDOMIN AL APPROACHon 05-06-2022 US OB FOLLOW UP TRANSABDOMINAL APPROACH - OBSTETRICS REPORT (Signed Final 05/06/2022 09:35 pm) - PATIENT INFO: ID #: [id number] : [birth year] (26 yrs)(F) Name: CATALINA MARVIN Visit Date: 05/06/2022 03:45 pm - PERFORMED BY: Attending: José Suarez MD Performed By: Analisa Fitzgerald RDMS Referred By: MARK DOWD MD Location: [facility] [employer] [facility] Visit Type: [facility] [employer] ARCH[employer] - SERVICE(S) [place]: [place] [address] [place] [address] - INDICATIONS: Twins/ Growth/ EDC 07/31/22 = 27w5d Twin , unable to determine O30.092 number of placenta and number of amniotic sacs, second trimester 27 weeks gestation Z3A.27 - EVALUATION (FETUS A): Num Of Fetuses: 2 Preg. Location: Intrauterine Heart Rate(bpm): 152 Cardiac Activity: Regular rhythm Lie: Longitudinal Maternal LT Presentation: Vertex Placenta: Anterior grade 1 no previa P. Cord Insertion: Normal Amniotic Fluid MONET FV: Appears WNL Largest Pocket(cm) 6.51 - BIOMETRY (FETUS A): BPD: 70.7 mm G.Age: [...] % FW Discordancy: 0 \ 2 % - GESTATIONAL AGE (FETUS A): Clinical SAPNA: 27w 5d SAPNA: 07/31/22 U/S Today: 28w 5d SAPNA: 07/24/22 Best: 27w 5d Det. By: Clinical SAPNA SAPNA: 07/31/22 - TARGETED ANATOMY (FETUS A): Central Nervous System [...] appearance Lt Outflow Tract: Not visualized Cardiac [place]: Normal appearance Diaphragm: Normal appearance 3 Vessel [...] Genitalia: Female Comment: Renal arteries appear normal. - EVALUATION (FETUS B): Num Of Fetuses: 2 Preg. Location: Intrauterine Heart Rate(bpm): 146 Cardiac Activity: Regular rhythm Lie: Longitudinal Maternal RT Presentation: Vertex Placenta: Posterior grade 1 no previa P. Cord Insertion: Normal Amniotic Fluid MONET FV: Appears WNL Largest Pocket(cm) 5.29 - BIOMETRY (FETUS B): BPD: 68.2 mm G.Age: [...] oz 63 % FW Discordancy: 2 % - GESTATIONAL AGE (FETUS B): Clinical SAPNA: 27w 5d SAPNA: 07/31/22 U/S Today: 28w 2d SAPNA: 07/27/22 Best: 27w 5d Det. By: Clinical SAPNA SAPNA: 07/31/22 - (more content not included)... Normal [facility] 36on 04-20-2022 36 S: Patient spoke wit h [facility] nurse regarding 25w3d - Concerned about pelvic [...] and care. States she will go to [facility] L&D and have someone drive her. Home care advice given. Patient understands care advice. No further needs at this time. Patient instructed to call back with new or worsening symptoms. Reason for Disposition Unable to keep ANY liquids down (without vomiting) this past 24 hours Protocols used: - Morning Sickness (Nausea and Vomiting of )-ADULT-OH Normal [facility] AMNIon 04-20-2022 Amnisure Negative Normal Negative [facility] ([place]) Comment on above: Performed By: #### A [facility] #### [place] [address] [address] Progress Noteon 04-08-2022 Progress Note PNP drawn today. Was not drawn with Horizon and panorama last week. Normal [facility] Progress Note Anatomy US on 04/07 showed Amna twin , normal anatomy for baby A and B, CL 3.79cm. Will repeat growth US in 4 weeks. Start weekly BPPs at 32 weeks. Rx for ASA 81mg qDay. Normal [facility] Progress Note ASSESSESMENT: Diagnosis Plan 1. Twin [...] growth US and OB appt. Normal [facility] US OB 14+ WEEKS EACH ADDITIO NAL GESTATIONon 04-07-2022 US OB 14+ WEEKS EACH ADDITIONAL GESTATION - OBSTETRICS REPORT (Signed Final 04/07/2022 08:11 pm) - PATIENT INFO: ID #: [id number] : [birth year] (26 yrs)(F) Name: CATALINA MARVIN Visit Date: 04/07/2022 03:04 pm - PERFORMED BY: Attending: Arturo Pederson MD Performed By: Charity Washburn RDMS Referred By: RAMONA HALL CNM Location: [facility] [employer] ARCH[employer] [place] Visit Type: [facility] [employer] ARCHITECT - SERVICE(S) PROVIDED: US >= 14 weeks [address] US >= 14 weeks additional fetus 48088 - INDICATIONS: Anatomy/Twins/EDC 07/31/22 = 23w4d Encounter for screening for Z36.3 malformations Twin , unable to determine O30.092 number of placenta and number of amniotic sacs, second trimester 23 weeks gestation Z3A.23 Di/ Di Twins - EVALUATION (FETUS A): Num Of Fetuses: 2 Preg. Location: Intrauterine Heart Rate(bpm): 169 Cardiac Activity: Present Lie: Maternal LT Presentation: Breech Placenta: Anterior grade 0 no previa P. Cord Insertion: Normal Membrane Desc: Dichorionic - diamniotic Membrane Size: Normal Amniotic Fluid MONET FV: Appropriate for gestational age - BIOMETRY (FETUS A): BPD: 56.8 mm G.Age: [...] % FW Discordancy: 0 \ 17 % - GESTATIONAL AGE (FETUS A): Clinical SAPNA: 23w 4d SAPNA: 07/31/22 U/S Today: 24w 1d SAPNA: 07/27/22 Best: 23w 4d Det. By: Clinical SAPNA SAPNA: 07/31/22 - TARGETED ANATOMY (FETUS A): Central Nervous System [...] appearance Lt Outflow Tract: Normal appearance Cardiac [place]: Normal appearance Diaphragm: Normal appearance 3 Vessel [...] Genitalia: Female Comment: Renal arteries appear normal. - EVALUATION (FETUS B): Num Of Fetuses: 2 Preg. Location: Intrauterine Heart Rate(bpm): 145 Cardiac Activity: Present Lie: Maternal RT Presentation: Breech Placenta: Posterior grade 0 no previa P. Cord Insertion: Normal Membrane Desc: Dichorionic - diamniotic Membrane Size: Normal Amniotic Fluid MONET FV: Appropriate for gestational age - BIOMETRY (FETUS B): BPD: 55.6 mm G.Age: [...] 43 (more content not included)... Normal [facility] US OB 14+ WEEKS SINGLE FETUS MATERNAL EVAL TRANSABDOMINALon 04-07-2022 US OB 14+ WEEKS SINGLE FETUS MATERNAL EVAL TRANSABDOMINAL - OBSTETRICS REPORT (Signed Final 04/07/2022 08:11 pm) - PATIENT INFO: ID #: [id number] : [birth year] (26 yrs)(F) Name: CATALINA MARVIN Visit Date: 04/07/2022 03:04 pm - PERFORMED BY: Attending: Arturo Pederson MD Performed By: Charity Washburn RDMS Referred By: RAMONA HALL CNM Location: [facility] [employer] ARCH[employer] [place] Visit Type: [facility] [employer] ARCHITECT - SERVICE(S) PROVIDED: US >= 14 weeks 66[address] US >= 14 weeks additional fetus 52483 - INDICATIONS: Anatomy/Twins/EDC 07/31/22 = 23w4d Encounter for screening for Z36.3 malformations Twin , unable to determine O30.092 number of placenta and number of amniotic sacs, second trimester 23 weeks gestation Z3A.23 Di/ Di Twins - EVALUATION (FETUS A): Num Of Fetuses: 2 Preg. Location: Intrauterine Heart Rate(bpm): 169 Cardiac Activity: Present Lie: Maternal LT Presentation: Breech Placenta: Anterior grade 0 no previa P. Cord Insertion: Normal Membrane Desc: Dichorionic - diamniotic Membrane Size: Normal Amniotic Fluid MONET FV: Appropriate for gestational age - BIOMETRY (FETUS A): BPD: 56.8 mm G.Age: [...] % FW Discordancy: 0 \ 17 % - GESTATIONAL AGE (FETUS A): Clinical SAPNA: 23w 4d SAPNA: 07/31/22 U/S Today: 24w 1d SAPNA: 07/27/22 Best: 23w 4d Det. By: Clinical SAPNA SAPNA: 07/31/22 - TARGETED ANATOMY (FETUS A): Central Nervous System [...] appearance Lt Outflow Tract: Normal appearance Cardiac [place]: Normal appearance Diaphragm: Normal appearance 3 Vessel [...] Genitalia: Female Comment: Renal arteries appear normal. - EVALUATION (FETUS B): Num Of Fetuses: 2 Preg. Location: Intrauterine Heart Rate(bpm): 145 Cardiac Activity: Present Lie: Maternal RT Presentation: Breech Placenta: Posterior grade 0 no previa P. Cord Insertion: Normal Membrane Desc: Dichorionic - diamniotic Membrane Size: Normal Amniotic Fluid MONET FV: Appropriate for gestational age - BIOMETRY (FETUS B): BPD: 55.6 mm G.Age: [...] 5 oz 43 (more content not included)... [facility] 02-03-2022 [facility] Telephone (OBGWMA) CATALINA MARVIN ([id number]) 1995 F Date Time Provider Department 02/03/22 DINAH MARIA OBGWMA During your visit today, we recorded the following information about you: Erin Jara RN 02/03/2022 1:11 PM Signed Pos HT. HCG pended. 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 Performed By: #### C UA2 #### [facility] [place] [address] RBC LM.HPF (Urine sed) [#/Area] Negative Normal 0-2 [facility] Comment on above: Result Comment: . Performed By: #### C UA2 #### [address] [address] Squamous Epithelial 6 - 10 Abnormal 3-5 [facility] Comment on above: Result Comment: . Performed By: #### C UA2 #### [facility] [address] [place] [address] VOLUME, URINE 12 ml Normal [facility] Comment on above: Result Comment: . Performed By: #### C UA2 #### [address] [address] WBC, Urine 3 - 5 Normal 0-5 [facility] Comment on above: Result Comment: . Performed By: #### C UA2 #### [facility] [address] [place] [address] Appearance (U) Clear Normal Clear [facility] Comment on above: Result Comment: . Performed By: #### C UA2 #### [facility] [address] [place] [address] Bilirubin,Urine Negative Normal Negative [facility] Comment on above: Result Comment: . Performed By: #### C UA2 #### [address] [address] Color (U) COLORLESS Normal Lt. Yellow [facility] Comment on above: Result Comment: . Performed By: #### C UA2 #### [place] [address] [place] [address] Glucose Ql (U) Normal Normal Normal (<70) [facility] Comment on above: Result Comment: . Performed By: #### C UA2 #### [address] [place] [place] [address] Ketone,Urine 40 mg/dL Abnormal Negative [facility] Comment on above: Result Comment: . Performed By: #### C UA2 #### [address] [address] Leukocytes,Urine 25 [place]/uL Abnormal Negative [facility] Comment on above: Result Comment: . Performed By: #### C UA2 #### [address] [address] Nitrites,Urine Negative Normal Negative [facility] Comment on above: Result Comment: . Performed By: #### C UA2 #### [address] [address] Occult Blood,Urine Negative Normal Negative [facility] Comment on above: Result Comment: . Performed By: #### C UA2 #### [address] [address] pH,Urine 6.5 Normal 5.0-8.0 [facility] Comment on above: Result Comment: . Performed By: #### C UA2 #### [address] [address] Specific [place],Urine 1.007 Normal 1.005 - 1.030 [facility] Comment on above: Result Comment: . Performed By: #### C UA2 #### [address] [address] Total Protein,Urine Negative Normal Negative [facility] Comment on above: Result Comment: . Performed By: #### C UA2 #### [address] [address] Urobilinogen,Urine Normal Normal Normal (0-1) [facility] Comment on above: Result Comment: . Performed By: #### C UA2 #### [facility] [address] [place] [address] HCG, Quantitative, on 02-03-2022 hCG Quant [id number] m[IU]/mL [facility] Work Phone: Comment on above: Females < [...] or gestational trophoblastic disease. Test Performed by [facility], [address] [place] [address] [facility] Work Phone: Hemogramon 02-03-2022 Erythrocyte distribution width (RBC) [Ratio] 13.4 % Normal 11.5-14.5 [facility] Comment on above: Performed By: #### H EMOG, QWNT5 #### [facility] [employer] [address] [place] [address] Hematocrit (Bld) [Volume fraction] 34.9 % Low 35.0-47.0 [facility] Comment on above: Performed By: #### H EMOG, QWNT5 #### [facility] [address] [place] [address] Hemoglobin (Bld) [Mass/Vol] 12.1 g/dL Normal 11.7-16.0 [facility] Comment on above: Performed By: #### H MIKA QWNT5 #### [place] [address] [place] [address] MCH (RBC) [Entitic mass] 30.7 pg Normal 26.0-34.0 [facility] Comment on above: Performed By: #### Ricki BRENNAN QWNT5 #### [address] [address] MCHC 34.6 % Normal 32.0-36.0 [facility] Comment on above: Performed By: #### H MIKA QWNT5 #### [address] [address] MCV (RBC) [Entitic vol] 88.8 fL Normal 79.0-98.0 [facility] Comment on above: Performed By: #### Ricki BRENNAN, QWNT5 #### [address] [address] Platelet mean volume (Bld) [Entitic vol] 7.4 fL Normal 7.4-12.4 [facility] Comment on above: Result Comment: MPV is a calculated measurement using platelet volume ratio. Performed By: #### H MIKA, QWNT5 #### [address] [address] Platelets (Bld) [#/Vol] 269 10*3/uL Normal 140-440 [facility] Comment on above: Performed By: #### H EMOG, QWNT5 #### [address] [address] RBC (Bld) [#/Vol] 3.93 10*6/uL Normal 3.80-5.20 [facility] Comment on above: Performed By: #### H EMOG, QWNT5 #### [address] [address] WBC (Bld) [#/Vol] 10.4 10*3/uL Normal 3.6-10.7 [facility] [employer] Comment on above: Performed By: #### H [facility], QWNT5 #### [facility] [employer] [address] [place] [address] Hemogram (CBC)on 02-03-2022 Hematocrit (Bld) [Volume fraction] 34.9 % Low 35 - 47 % [facility] Work Phone: Hemoglobin (Bld) [Mass/Vol] 12.1 g/dL 11.7 - 16 g/dL [facility] Work Phone: Interpretation and review of laboratory results Abnormal [facility] Work Phone: MCH (RBC) [Entitic mass] 30.7 pg 26 - 34 pg [facility] Work Phone: MCHC (RBC) [Mass/Vol] 34.6 % 32 - 36 % [facility] Work Phone: MCV (RBC) [Entitic vol] 88.8 fL 79 - 98 fL S [facility] Work Phone: Platelet distribution width (Bld) [Ratio] 13.4 % 11.5 - 14.5 % [facility] Work Phone: Platelet mean volume (Bld) [Entitic vol] 7.4 fL 7.4 - 12.4 fL [facility] Work Phone: Comment on above: MPV is a calculated measurement using platelet volume ratio. Platelets (Bld) [#/Vol] 269 10*3/uL 140 - 440 10*3/uL [facility] Work Phone: RBC (Bld) [#/Vol] 3.93 10*6/uL 3.8 - 5.2 10*6/uL [facility] Work Phone: WBC (Bld) [#/Vol] 10.4 10*3/uL 3.6 - 10.7 10*3/uL [facility] Work Phone: Test Performed by [facility], [address] [place] [address] [facility] [place] [facility] Work Phone: US OB 1 OR MORE FETUS [place] Don 02-03-2022 Patient Name: CATALINA VICTORIA Ultrasound ACCESSION EXAM DATE/TIME PROCEDURE ORDERING PROVIDER [id number] 02/03/2022 16:32 EDT [place] Limited [id number] DOMITILA GOINS CPT code 44656 Reason For Exam (US Limited) fall on [...] 17:08 EDT by MD FELECIA, EULALIA ROBERTS [facility] Eulalia Shahid MD - 02/03/2022 Patient Name: CATALINA MARVIN Ultrasound ACCESSION EXAM DATE/TIME PROCEDURE ORDERING PROVIDER [id number] 02/03/2022 16:32 EDT [place] Limited [id number] DOMITILA GOINS CPT code 44748 Reason For Exam (US Limited) fall on [...] 17:08 EDT by MD FELECIA, EULALIA ROBERTS [facility] Work Phone: Radiology Study observation (narrative) [facility] Work Phone: US OB 1 OR MORE FETUS LIMITE DOrdered By: Eulalia Shahid on 02-03-2022 [facility] Work Phone: US Limited 1 or Mo re Fetuseson 02-03-2022 [place] Limited 1 or More Fetuses Patient Name: CATALINA MARVIN Ultrasound ACCESSION EXAM DATE/TIME PROCEDURE ORDERING PROVIDER [id number] 02/03/2022 16:32 EDT [place] Limited [id number] DOMITILA GOINS CPT code 89247 Reason For Exam (US Limited) fall on [...] EDT by MD FELECIA, EULALIA ROBERTS Normal [facility] Urinalysison 02-03-2022 Appearance (U) Clear Clear NA [facility] Work Phone: Comment on above: . Bacteria, UA Few (1-5) Abnormal Negative /[HPF] [facility] Work Phone: Comment on above: . Bilirubin Urine Negative Negative mg/dL [facility] Work Phone: Comment on above: . Color (U) COLORLESS Lt. Yellow NA [facility] Work Phone: Comment on above: . Glucose, Ur Normal Normal (<70) mg/dL [facility] Work Phone: [phone] Comment on above: . Interpretation and review of laboratory results Abnormal [facility] Work Phone: [phone] Ketones Ql (U) 40 mg/dL Abnormal Negative [facility] Work Phone: [phone] Comment on above: . LEUKOCYTES, UA 25 Abnormal Negative [place]/uL [facility] Work Phone: [phone] Comment on above: . Nitrite, Urine Negative Negative NA [facility] Work Phone: [phone] Comment on above: . Occult Blood,Urine Negative Negative mg/dL [facility] Work Phone: [phone] Comment on above: . pH (U) 6.5 [pH] [facility] Work Phone: [phone] Comment on above: . RBC (U) [#/Vol] Negative 0 - 2 /[HPF] [facility] Work Phone: [phone] Comment on above: . Specific Crosby, Urine 1.007 S [facility] Work Phone: [phone] Comment on above: . Squam Epithel, UA 6-10 Abnormal 3 - 5 /[HPF] [facility] Work Phone: [phone] Comment on above: . Total Protein, Urine Negative Negativ e mg/dL [facility] Work Phone: [phone] Comment on above: . Urobilinogen, Urine Normal Normal (0-1) mg/dL [facility] Work Phone: [phone] Comment on above: . Volume 12 ml [facility] Work Phone: [phone] Comment on above: . WBC, UA /[HPF] 0 - 5 /[HPF] [facility] Work Phone: [phone] Comment on above: . Test Performed by [facility], [address] [place] [address] [facility] Work Phone: [phone] hCG Quantitativeon 2 hCG Quantitative 974109 m[IU]/mL Normal [facility] Comment on above: Result Comment: Fema les [...] gestational trophoblastic disease. Performed By: #### [facility] #### [address] [address] .Auto Diffon 12-09-2021 Basophil, Absolute 0.0 10 3/mcL Normal 0.0-0.2 [facility] ([place]) Comment on above: Performed By: #### AUDREY HORN #### [address] [address] Basophils/100 WBC (Bld) 0.5 % Normal 0.0-2.5 A [facility] ([place]) Comment on above: Performed By: #### AUDREY HORN #### [address] [address] Eosinophil, Absolute 0.0 10 3/mcL Normal 0.0-0.4 [facility] ([place]) Comment on above: Performed By: #### AUDREY HORN #### [address] [address] Eosinophils/100 WBC (Bld) 0.2 % Normal 0.0-7.0 [facility] ([place]) Comment on above: Performed By: #### AUDREY HORN #### [address] [address] Lymphocyte, Absolute 0.6 10 3/mcL Low 0.8-3.9 [facility] ([place]) Comment on above: Performed By: #### U AMICAO, UA #### [address] [address] Lymphocytes/100 WBC (Bld) 6.4 % Low 10.0-50.0 [facility] ([place]) Comment on above: Performed By: #### U AMICAO, UA #### [address] [address] Monocyte, Absolute 0.4 10 3/mcL Normal 0.2-1.0 [facility] ([place]) Comment on above: Performed By: #### Sandro AMICAO UA #### [address] [address] Monocytes/100 WBC (Bld) 3.7 % Normal 1.7-13.0 A [facility] ([place]) Comment on above: Performed By: #### U AMICAO, UA #### [address] [address] Neutrophils/100 WBC (Bld) 89.2 % High 37.0-80.0 [facility] ([place]) Comment on above: Performed By: #### U AMICAO, UA #### [address] [address] .GFRon 12-09-2021 GFR 121 ml/min/1.73sqm Normal [facility] ([place]) Comment on above: Result Comment: GFR Population [...] 15 mL/min/1.73 square meters Performed By: #### Ronny HARRY, DENA #### [place] [address] [address] GFR Non- 100 ml/min/1.73sqm Normal [facility] ([place]) Comment on above: Result Comment: GFR Population [...] 15 mL/min/1.73 square meters Performed By: #### DENA MARTIN #### [address] [address] .MDWon 12-09-2021 Monocyte Distribution Width 18.57 Normal 0.00-20.00 [facility] ([place]) Comment on above: Result Comment: For ED adult patients suspected of sepsis, MDW<=20.0 does not rule out sepsis or risk of sepsis Performed By: #### AUDREY HORN #### [place] [address] [address] .NEUABSon 12-09-2021 Neutrophil, Absolute 8.9 10 3/mcL High 2.9-6.2 [facility] ([place]) Comment on above: Performed By: #### AUDREY HORN #### [place] [address] [address] .Urinalysis Microscopic (AO) on 12-09-2021 UA Bacteria 1+ /hpf Abnormal [facility] ([place]) Comment on above: Performed By: #### AUDREY HORN #### [address] [address] UA RBC 0-5 Abnormal None Seen [facility] ([place]) Comment on above: Performed By: #### U KEATON, UA #### [address] [address] UA Squam Epithelial 10-15 Abnormal None Seen [facility] ([place]) Comment on above: Performed By: #### U AMICAServando, UA #### [address] [address] UA WBC 10-15 Abnormal None Seen [facility] ([place]) Comment on above: Performed By: #### U KEATON UA #### [address] [address] BMPon 12-09-2021 BUN/Creatinine Ratio 14 ratio Normal 7-27 [facility] ([place]) Comment on above: Performed By: #### G FR, BMP #### [address] [address] Calcium [Mass/Vol] 9.3 mg/dL Normal 8.4-10.2 [facility] ([place]) Comment on above: Performed By: #### G FR, BMP #### [address] [address] Chloride [Moles/Vol] 102 mmol/L Normal 98-107 [facility] ([place]) Comment on above: Performed By: #### G FR, BMP #### [address] [address] CO2 [Moles/Vol] 24 mmol/L Normal 22-29 [facility] ([place]) Comment on above: Performed By: #### G FR, BMP #### [address] [address] Creatinine [Mass/Vol] 0.72 mg/dL Normal 0.55-1.02 [facility] ([place]) Comment on above: Performed By: #### G FR, BMP #### [address] [address] Electrolyte Balance 10.0 mEq/L Normal 4.0-15.0 [facility] ([place]) Comment on above: Performed By: #### G , BMP #### [address] [address] Glucose [Mass/Vol] 92 mg/dL Normal 70-105 [facility] ([place]) Comment on above: Performed By: #### G , BMP #### [address] [address] Potassium [Moles/Vol] 4.0 mmol/L Normal 3.5-5.1 [facility] ([place]) Comment on above: Performed By: #### Ronny HARRY, BMP #### [address] [address] Sodium [Moles/Vol] 136 mmol/L Normal 136-145 [facility] ([place]) Comment on above: Performed By: #### Ronny HARYR, BMP #### [address] [address] Urea nitrogen [Mass/Vol] 10 mg/dL Normal 7-18 [facility] ([place]) Comment on above: Performed By: #### Ronny HARRY, BMP #### [address] [address] CBCon 12-09-2021 Erythrocyte distribution width (RBC) [Ratio] 12.8 % Normal 11.5-14.5 [facility] ([place]) Comment on above: Performed By: #### Sandro PUGH UA #### [address] [address] Hematocrit (Bld) [Volume fraction] 40.9 % Normal 37.0-47.0 [facility] ([place]) Comment on above: Performed By: #### Sandro PUGH UA #### [address] [address] Hgb 14.7 G/dL Normal 12.0-16.0 [facility] ([place]) Comment on above: Performed By: #### Sandro PUGH UA #### [address] [address] MCH (RBC) [Entitic mass] 31.9 pg High 27.0-31.2 [facility] ([place]) Comment on above: Performed By: #### AUDREY HORN #### [place] [address] [address] MCHC 35.9 G/dL Normal 33.0-37.0 [facility] ([place]) Comment on above: Performed By: #### AUDREY HORN #### [place] [address] [address] MCV (RBC) [Entitic vol] 88.9 fL Normal 80.0-94.0 A [facility] ([place]) Comment on above: Performed By: #### AUDREY HORN #### [place] [address] [address] Platelet 265 10 3/mcL Normal 130-400 [facility] ([place]) Comment on above: Performed By: #### AUDREY HORN #### [place] [address] [address] Platelet mean volume (Bld) [Entitic vol] 7.4 fL Normal 7.4-10.4 [facility] ([place]) Comment on above: Performed By: #### AUDREY HORN #### [place] [address] [address] RBC 4.60 10 6/mcL Normal 4.20-5.40 [facility] ([place]) Comment on above: Performed By: #### AUDREY HORN #### [place] [address] [address] WBC 10.0 10 3/mcL Normal 4.6-10.8 [facility] ([place]) Comment on above: Performed By: #### AUDREY HORN #### [place] [address] [address] Gel ABOon 12-09-2021 ABO/Rh Interp Positive Invalid Interpretation Code [facility] ([place]) Comment on above: Performed By: #### AUDREY HORN #### [address] [address] HCGQon 12-09-2021 hCG, quantitative 188637.8 mIU/mL Normal [facility] ([place]) Comment on above: Result Comment: HCG Levels [...] - 100,000 mIU/mL Performed By: #### G , [facility] #### [address] [address] LABORATORYOrdered By: Dionna Costello on 12-09-2021 ABO/Rh [...] dL AO Auto Urine SS HCG Qn 717188.8 m[IU]/mL Invalid Interpretation Code AO ADM SS [...] S UAon 12-09-2021 Color (U) Yellow Normal [facility] ([place]) Comment on above: Performed By: #### U AMICAO, UA #### [address] [address] Glucose (U) [Mass/Vol] Negative Normal Negative [facility] ([place]) Comment on above: Performed By: #### U AMICAO, UA #### [address] [address] Ketones Ql (U) 80 mg/dL Abnormal Negative [facility] ([place]) Comment on above: Performed By: #### U AMICAO, UA #### [address] [address] UA Appear Clear Normal Clear [facility] ([place]) Comment on above: Performed By: #### U AMICAO, UA #### [address] [address] UA Bili Small Abnormal Negative [facility] ([place]) Comment on above: Performed By: #### U AMICAO, UA #### [address] [address] UA Blood Negative Normal Negative [facility] ([place]) Comment on above: Performed By: #### U AMICAO, UA #### [place] [address] [address] UA Leuk Est Trace Abnormal Negative [facility] ([place]) Comment on above: Performed By: #### U AMICAO, UA #### [place] [address] [address] UA Nitrite Negative Normal Negative [facility] ([place]) Comment on above: Performed By: #### U AMICAO, UA #### [place] [address] [address] UA pH 6.0 Normal 5.0 - 8.0 [facility] ([place]) Comment on above: Performed By: #### U AMICAO, UA #### [place] [address] [address] UA Protein Negative Normal Negative [facility] ([place]) Comment on above: Performed By: #### U KEATON UA #### [place] [address] UA Spec Grav >=1.030 Abnormal 1.015-1.025 [facility] ([place]) Comment on above: Performed By: #### U AMICAServando, UA #### [place] [address] [address] UA Specimen Type Clean Catch Normal [facility] ([place]) Comment on above: Performed By: #### U AMICAO, UA #### [place] [address] UA Urobilinogen 0.2 E.U./dL Normal 0.2-1.0 [facility] ([place]) Comment on above: Performed By: #### U AMICAO, UA #### [place] [address] [address] GC/Chlam Amp Genital/Rectal/ Oralon 02-05-2020 CT-DNA Amplified CT neg Normal [facility] Comment on above: Result Comment: Nega tive for Chlamydia trachomatis by amplification. Performed By: #### G CCTP #### [facility] [address] [place] [address] GC-DNA Amplified GC neg Normal [facility] Comment on above: Result Comment: Nega tive for Neisseria gonorrhoeae by amplification. Performed By: #### G CCTP #### [facility] [address] [place] [phone] GC/Chlam Amp Genital/Rectal/ Oralon 02-02-2020 GC/Chlam Amp Source Endocervix Normal [facility] Comment on above: Performed By: #### G CCTP #### [place] [phone] HCG, Totalon 01-25-2020 HCG Qn m[IU]/mL Normal < 5.0 [facility] Comment on above: Result Comment: HCG values 5 to 16 mIU/mL may represent benign, pituitary age. QUANTITATIVE HCG NORMAL RANGES [Weeks of Gestation (Weeks Since LMP)]: 3 Weeks (5.8-71.2 mIU/mL) 4 Weeks (9.5-750 mIU/mL) 5 Weeks (217-7138 mIU/mL) 6 Weeks (158-04431 mIU/mL) 7 Weeks (3697-139934 mIU/mL) 8 Weeks (06174-400516 mIU/mL) 9 Weeks (17184-070535 mIU/mL) 10 Weeks (66948-554522 mIU/mL) 12 Weeks (17452-465423 mIU/mL) Referenced to 4th IS of [facility]. Patients taking a biotin dose of up [...] result. Performed By: #### H CG #### [place] [id number] Type and Screenon 01-25-2020 ABO group Nom (Bld) O Normal [facility] Comment on above: Performed By: #### T &S #### [address] [address] Comment Out Patient Normal [facility] Comment on above: Performed By: #### T &S #### [place] [address] RH Type Positive Normal [facility] Comment on above: Performed By: #### T &S #### [place] [address] GC/Chlam Amp Genital/Rectal/ Oralon 06-19-2019 GC/Chlam Amp Genital/Rectal/Oral Test performed at [facility] Negative for Neisseria gonorrhoeae by amplification. Negative for Chlamydia trachomatis by amplification. Vagina Normal [facility] Comment on above: Performed By: #### G CCTP #### [place] [address] Pap,Cyto Gynon 06-19-2019 Pap,Cyto [employer] Test performed at [place] [address] NAME: CATALINA MARVIN REQUESTING: CHARLES LAM MD SPECIMEN: TP CX REFLEX TO HPV ASCUS/STAR Relevant History: Post-: Y, Comment: FIRST PAP SPECIMEN ADEQUACY SATISFACTORY FOR EVALUATION. ENDOCERVICAL/TRANSFORMA TION ZONE COMPONENTS PRESENT. PARTIALLY OBSCURING INFLAMMATION. GENERAL [...] 27, 2019 Page 1 of 1 Normal [facility] Comment on above: Performed By: #### C YTOP #### [place] [address] Rapid Bact.Vaginosison 06-19 Rapid Bact.Vaginosis see below Normal Negative [facility] Comment on above: Result Comment: Nega tive for the presence of bacterial vaginosis. Performed By: #### R APBV #### [facility] [address] [place] [address] Rapid Trichomonas Agon 06-19 Rapid Trichomonas Ag see below Normal Negative [facility] Comment on above: Result Comment: No T richomonas antigen present or the antigen level is below detection limit of the assay (2500 organisms/mL). Performed By: #### R APTR #### [facility] [address] [place] [address] Comp Metabolic Panelon 11-10 ALP [Catalytic activity/Vol] 79 U/L Normal 38-126 [facility] Comment on above: Performed By: #### H EMOG, CMP3, AMY3, LIPA4 #### [facility] [address] [place] [address] ALT [Catalytic activity/Vol] 23 U/L Normal 13-69 [facility] Comment on above: Performed By: #### H EMOG, CMP3, AMY3, LIPA4 #### [facility] [address] [place] [address] Anion gap [Moles/Vol] 8 Normal [facility] Comment on above: Performed By: #### H EMOG, CMP3, AMY3, LIPA4 #### [facility] [address] [place] [address] AST [Catalytic activity/Vol] 35 U/L Normal 15-46 [facility] Comment on above: Performed By: #### H EMOG, CMP3, AMY3, LIPA4 #### [facility] [address] [place] [address] Bilirubin [Mass/Vol] 0.5 mg/dL Normal 0.2-1.3 [facility] Comment on above: Performed By: #### H EMOG, CMP3, AMY3, LIPA4 #### [facility] [address] [place] [address] Calcium [Mass/Vol] 9.1 mg/dL Normal 8.4-10.4 [facility] Comment on above: Performed By: #### H EMOG, CMP3, AMY3, LIPA4 #### [facility] [address] [place] [address] CO2 [Moles/Vol] 21 mmol/L Low 22-30 [facility] Comment on above: Performed By: #### H EMOG, CMP3, AMY3, LIPA4 #### [facility] [address] [place] [address] Glucose [Mass/Vol] 77 mg/dL Normal 70-100 [facility] Comment on above: Performed By: #### H EMOG, CMP3, AMY3, LIPA4 #### [facility] [address] [place] [address] Protein [Mass/Vol] 6.4 g/dL Normal 6.3-8.2 [facility] Comment on above: Performed By: #### H EMOG, CMP3, AMY3, LIPA4 #### [facility] [address] [place] [address] Urea nitrogen [Mass/Vol] 7 mg/dL Normal 7-20 [facility] Comment on above: Performed By: #### H EMOG, CMP3, AMY3, LIPA4 #### [facility] [address] [place] [address] Creatinine [Mass/Vol] 0.42 mg/dL Low 0.52-1.25 [facility] Comment on above: Performed By: #### H EMOG, CMP3, AMY3, LIPA4 #### [facility] [address] [place] [address] GFR/1.73 sq M predicted among blacks MDRD (S/P/Bld) [Vol rate/Area] mL/min/{1.73_m2} Normal >60 [facility] Comment on above: Performed By: #### H EMOG, CMP3, AMY3, LIPA4 #### [facility] [address] [place] [address] GFR/1.73 sq M predicted among non-blacks MDRD (S/P/Bld) [Vol rate/Area] mL/min/{1.73_m2} Normal >60 [facility] Comment on above: Result Comment: Sour ce- MDRD equation with creatinine calibration to IDMS(NKDEP) eGFR not recommended for drug dose adjustment Performed By: #### H EMOG, CMP3, AMY3, LIPA4 #### [facility] [address] [place] [address] Albumin [Mass/Vol] 3.5 g/dL Normal 3.5-5.0 [facility] Comment on above: Performed By: #### H EMOG, CMP3, AMY3, LIPA4 #### [facility] [address] [place] [address] Chloride [Moles/Vol] 105 mmol/L Normal 98-107 [facility] Comment on above: Performed By: #### H EMOG, CMP3, AMY3, LIPA4 #### [facility] [address] [place] [address] Potassium [Moles/Vol] 3.8 mmol/L Normal 3.5-5.1 [facility] Comment on above: Performed By: #### H EMOG, CMP3, AMY3, LIPA4 #### [facility] [address] [place] [address] Sodium [Moles/Vol] 135 mmol/L Normal 135-145 [facility] Comment on above: Performed By: #### H EMOG, CMP3, AMY3, LIPA4 #### [facility] [address] [place] [address] Complete Urinalysison 2018 Appearance (U) Turbid Normal [facility] Comment on above: Result Comment: Refe rence Range: Clear Performed By: #### H EMOG, CMP3, AMY3, LIPA4 #### [facility] [address] [place] [address] Bacteria LM.HPF (Urine sed) [#/Area] Few Normal [facility] Comment on above: Result Comment: Refe rence Range: Negative Performed By: #### H EMOG, CMP3, AMY3, LIPA4 #### [facility] [address] [place] [address] Bilirubin,Urine Negative Normal [facility] Comment on above: Result Comment: Refe rence Range: Negative Performed By: #### H EMOG, CMP3, AMY3, LIPA4 #### [facility] [address] [place] [address] Color (U) Yellow Normal [facility] Comment on above: Result Comment: Refe rence Range: Lt. Yellow Performed By: #### H EMOG, CMP3, AMY3, LIPA4 #### [facility] [address] [place] [address] Glucose Ql (U) Normal Normal [facility] Comment on above: Result Comment: Refe rence Range: Normal (<70) Performed By: #### H EMOG, CMP3, AMY3, LIPA4 #### [facility] [address] [place] [address] Ketone,Urine > 150 Normal [facility] Comment on above: Result Comment: Refe rence Range: Negative Performed By: #### H EMOG, CMP3, AMY3, LIPA4 #### [facility] [address] [place] [address] Leukocytes,Urine [address] [place]/uL Normal [facility] Comment on above: Result Comment: Refe rence Range: Negative Performed By: #### H EMOG, CMP3, AMY3, LIPA4 #### [facility] [address] [place] [address] Mucous Threads Few Normal [facility] Comment on above: Result Comment: Refe rence Range: Negative Performed By: #### H EMOG, CMP3, AMY3, LIPA4 #### [facility] [address] [place] [address] Nitrites,Urine Negative Normal [facility] Comment on above: Result Comment: Refe rence Range: Negative Performed By: #### H EMOG, CMP3, AMY3, LIPA4 #### [facility] [address] [place] [address] Occult Blood,Urine Negative Normal [facility] Comment on above: Result Comment: Refe rence Range: Negative Performed By: #### H EMOG, CMP3, AMY3, LIPA4 #### [facility] [address] [place] [address] pH (U) 6.0 Normal 5.0-8.0 [facility] Comment on above: Performed By: #### H EMOG, CMP3, AMY3, LIPA4 #### [facility] [address] [place] [address] Protein (U) [Mass/Vol] 30 mg/dL Normal [facility] Comment on above: Result Comment: Refe rence Range: Negative Performed By: #### H EMOG, CMP3, AMY3, LIPA4 #### [facility] [address] [place] [address] RBC LM.HPF (Urine sed) [#/Area] 3 - 5 Normal [facility] Comment on above: Result Comment: Refe rence Range: 0-2 Performed By: #### H EMOG, CMP3, AMY3, LIPA4 #### [facility] [address] [place] [address] Specific Crosby,Urine 1.029 Normal 1.005-1.030 [facility] Comment on above: Performed By: #### H EMOG, CMP3, AMY3, LIPA4 #### [facility] [address] [place] [address] Squamous Epithelial 3 - 5 Normal [facility] Comment on above: Result Comment: Refe rence Range: 3-5 Performed By: #### H EMOG, CMP3, AMY3, LIPA4 #### [facility] [address] [place] [address] Urobilinogen,Urine Normal Normal [facility] Comment on above: Result Comment: Refe rence Range: Normal (0-1) Performed By: #### H EMOG, CMP3, AMY3, LIPA4 #### [facility] [address] [place] [address] WBC LM.HPF (Urine sed) [#/Area] 26 - 50 Normal [facility] Comment on above: Result Comment: Refe rence Range: 0-5 Performed By: #### H EMOG, CMP3, AMY3, LIPA4 #### [facility] [address] [place] [address] Drugs of Abuseon 11-10-2018 Amphetamines, Ur Positive Normal [facility] Comment on above: Performed By: #### H EMOG, CMP3, AMY3, LIPA4 #### [facility] [address] [place] [address] Phencyclidine (PCP), Ur Negative Normal [facility] Comment on above: Result Comment: The expected [...] #### H EMOG, CMP3, AMY3, LIPA4 #### [facility] [address] [place] [address] Opiates, Ur Negative Normal [facility] Comment on above: Performed By: #### H EMOG, CMP3, AMY3, LIPA4 #### [facility] [address] [place] [address] Cocaine, Ur Negative [facility] Comment on above: Performed By: #### H EMOG, CMP3, AMY3, LIPA4 #### [facility] [address] [place] [address] Methadone, Ur Negative Normal [facility] Comment on above: Performed By: #### H EMOG, CMP3, AMY3, LIPA4 #### [facility] [address] [place] [address] Benzodiazepines, Ur Negative Normal [facility] Comment on above: Performed By: #### H EMOG, CMP3, AMY3, LIPA4 #### [facility] [address] [place] [address] Barbiturates, Ur Negative Normal [facility] Comment on above: Performed By: #### H EMOG, CMP3, AMY3, LIPA4 #### [facility] [address] [place] [address] Oxycodone/Oxymorphine,U r Negative Normal [facility] Comment on above: Performed By: #### H MIKA, CMP3, AMY3, LIPA4 #### [facility] [address] [place] [address] Hemogramon 11-10-2018 Erythrocyte distribution width (RBC) [Ratio] 13.1 % Normal 11.5-14.5 [facility] Comment on above: Performed By: #### H EMORonny, CMP3 #### [facility] [address] [place] [address] Hematocrit (Bld) [Volume fraction] 34.1 % Low 35.0-47.0 [facility] Comment on above: Performed By: #### H EMOG, CMP3 #### [facility] [address] [place] [address] Hemoglobin (Bld) [Mass/Vol] 11.8 g/dL Normal 11.7-16.0 [facility] Comment on above: Performed By: #### H EMOG, CMP3 #### [facility] [address] [place] [address] MCH (RBC) [Entitic mass] 31.4 pg Normal 26.0-34.0 [facility] Comment on above: Performed By: #### H EMOG, CMP3 #### [facility] [address] [place] [address] MCHC (RBC) [Mass/Vol] 34.6 % Normal 32.0-36.0 [facility] Comment on above: Performed By: #### H EMOG, CMP3 #### [facility] [address] [place] [address] MCV (RBC) [Entitic vol] 90.8 fL Normal 79.0-98.0 [facility] Comment on above: Performed By: #### H EMOG, CMP3 #### [facility] [address] [place] [address] Platelet mean volume (Bld) [Entitic vol] 7.4 fL Normal 7.4-10.4 [facility] Comment on above: Performed By: #### H EMOG, CMP3 #### [facility] [address] [place] [address] Platelets (Bld) [#/Vol] 214 10*3/uL Normal 140-440 [facility] Comment on above: Performed By: #### H EMOG, CMP3 #### [facility] [address] [place] [address] RBC (Bld) [#/Vol] 3.75 10*6/uL Low 3.80-5.20 [facility] Comment on above: Performed By: #### H EMOG, CMP3 #### [facility] [address] [place] [address] WBC (Bld) [#/Vol] 9.7 10*3/uL Normal 3.6-10.7 [facility] Comment on above: Performed By: #### H EMOG, CMP3 #### [facility] [address] [place] [address] CULTURE URINEon 09-15-2018 CULTURE URINE CULTURE URINE --> Status: F Normal urogenital whitley present. Normal [facility] Comment on above: Performed By: #### U AMAC, UAMIC, DRGA4 #### [facility] [address] [place] [address] #### C/UR #### [facility] [address] [place] [address] Add on test from HISon 09-14 Add on test from HIS Accepted Normal [facility] Comment on above: Result Comment: Spec imen available & acceptable for analysis. Performed By: #### A DDON #### [facility] [address] [place] [address] Amylaseon 09-14-2018 Amylase [Catalytic activity/Vol] 109 U/L Normal 30-130 [facility] Comment on above: Performed By: #### H EMOG, CMP3, AMY3, LIPA4 #### [facility] [address] [place] [address] Comp Metabolic Panelon 09-14 ALP [Catalytic activity/Vol] 56 U/L Normal 38-126 [facility] Comment on above: Performed By: #### H EMOG, CMP3, AMY3, LIPA4 #### [facility] [address] [place] [address] ALT [Catalytic activity/Vol] 28 U/L Normal 13-69 [facility] Comment on above: Performed By: #### H EMOG, CMP3, AMY3, LIPA4 #### [facility] [address] [place] [address] AST [Catalytic activity/Vol] 19 U/L Normal 15-46 [facility] Comment on above: Performed By: #### H EMOG, CMP3, AMY3, LIPA4 #### [facility] [address] [place] [address] Calcium [Mass/Vol] 9.4 mg/dL Normal 8.4-10.4 [facility] Comment on above: Performed By: #### H EMOG, CMP3, AMY3, LIPA4 #### [facility] [address] [place] [address] Glucose [Mass/Vol] 85 mg/dL Normal 70-100 [facility] Comment on above: Performed By: #### H EMOG, CMP3, AMY3, LIPA4 #### [facility] [address] [place] [address] Urea nitrogen [Mass/Vol] 6 mg/dL Low 7-20 [facility] Comment on above: Performed By: #### H EMOG, CMP3, AMY3, LIPA4 #### [facility] [address] [place] [address] Anion gap [Moles/Vol] 7 Normal [facility] Comment on above: Performed By: #### H EMOG, CMP3, AMY3, LIPA4 #### [facility] [address] [place] [address] Bilirubin [Mass/Vol] 0.3 mg/dL Normal 0.2-1.3 [facility] Comment on above: Performed By: #### H EMOG, CMP3, AMY3, LIPA4 #### [facility] [address] [place] [address] CO2 [Moles/Vol] 26 mmol/L Normal 22-30 [facility] Comment on above: Performed By: #### H EMOG, CMP3, AMY3, LIPA4 #### [facility] [address] [place] [address] Creatinine [Mass/Vol] 0.42 mg/dL Low 0.52-1.25 [facility] Comment on above: Performed By: #### H EMOG, CMP3, AMY3, LIPA4 #### [facility] [address] [place] [address] GFR/1.73 sq M predicted among blacks MDRD (S/P/Bld) [Vol rate/Area] mL/min/{1.73_m2} Normal >60 [facility] Comment on above: Performed By: #### H EMOG, CMP3, AMY3, LIPA4 #### [facility] [address] [place] [address] GFR/1.73 sq M predicted among non-blacks MDRD (S/P/Bld) [Vol rate/Area] mL/min/{1.73_m2} Normal >60 [facility] Comment on above: Result Comment: Sour ce- MDRD equation with creatinine calibration to IDMS(NKDEP) eGFR not recommended for drug dose adjustment Performed By: #### H EMOG, CMP3, AMY3, LIPA4 #### [facility] [address] [place] [address] Protein [Mass/Vol] 6.6 g/dL Normal 6.3-8.2 [facility] Comment on above: Performed By: #### H EMOG, CMP3, AMY3, LIPA4 #### [facility] [address] [place] [address] Chloride [Moles/Vol] 103 mmol/L Normal 98-107 [facility] Comment on above: Performed By: #### H EMOG, CMP3, AMY3, LIPA4 #### [facility] [address] [place] [address] Potassium [Moles/Vol] 4.1 mmol/L Normal 3.5-5.1 [facility] Comment on above: Performed By: #### H EMOG, CMP3, AMY3, LIPA4 #### [facility] [address] [place] [address] Sodium [Moles/Vol] 136 mmol/L Normal 135-145 [facility] Comment on above: Performed By: #### H EMOG, CMP3, AMY3, LIPA4 #### [facility] [address] [place] [address] Albumin [Mass/Vol] 3.7 g/dL Normal 3.5-5.0 [facility] Comment on above: Performed By: #### H EMOG, CMP3, AMY3, LIPA4 #### [facility] [address] [place] [address] Drugs of Abuseon 09-14-2018 Phencyclidine (PCP), Ur Negative Normal [facility] Comment on above: Result Comment: The expected [...] By: #### U AMAC, UAMIC, DRGA4 #### [facility] [address] [place] [address] #### C/UR #### [facility] [address] [place] [address] Methadone, Ur Negative Normal [facility] Comment on above: Performed By: #### U AMAC, UAMIC, DRGA4 #### [facility] [address] [place] [address] #### C/UR #### [facility] [address] [place] [address] Opiates, Ur Negative Normal [facility] Comment on above: Performed By: #### U AMAC, UAMIC, DRGA4 #### [facility] [address] [place] [address] #### C/UR #### [facility] [address] [facility] [place] [address] Cocaine, Ur Negative Normal [facility] Comment on above: Performed By: #### U AMAC, UAMIC, DRGA4 #### [facility] [address] [place] [address] #### C/UR #### [facility] [address] [facility] [address] Amphetamines, Ur Negative Normal [facility] Comment on above: Performed By: #### U AMAC, UAMIC, DRGA4 #### [facility] [address] [place] [address] #### C/UR #### [facility] [address] [facility] [address] Barbiturates, Ur Negative Normal [facility] Comment on above: Performed By: #### U AMAC, UAMIC, DRGA4 #### [facility] [address] [place] [address] #### C/UR #### [facility] [address] [facility] [place] [address] Benzodiazepines, Ur Negative Normal [facility] Comment on above: Performed By: #### U AMAC, UAMIC, DRGA4 #### [facility] [address] [place] [address] #### C/UR #### [facility] [address] [facility] [address] Oxycodone/Oxymorphine,U r Negative Normal [facility] Comment on above: Performed By: #### U AMAC, UAMIC, DRGA4 #### [facility] [address] [place] [address] #### C/UR #### [facility] [address] [facility] [address] Hemogramon 09-14-2018 Erythrocyte distribution width (RBC) [Ratio] 13.7 % Normal 11.5-14.5 [facility] Comment on above: Performed By: #### H EMOG, CMP3, AMY3, LIPA4 #### [facility] [address] [place] [address] Hematocrit (Bld) [Volume fraction] 38.9 % Normal 35.0-47.0 [facility] Comment on above: Performed By: #### H EMOG, CMP3, AMY3, LIPA4 #### [facility] [address] [place] [address] Hemoglobin (Bld) [Mass/Vol] 13.3 g/dL Normal 11.7-16.0 [facility] Comment on above: Performed By: #### H EMOG, CMP3, AMY3, LIPA4 #### [facility] [address] [place] [address] MCH (RBC) [Entitic mass] 31.8 pg Normal 26.0-34.0 [facility] Comment on above: Performed By: #### H EMOG, CMP3, AMY3, LIPA4 #### [facility] [address] [place] [address] MCHC (RBC) [Mass/Vol] 34.2 % Normal 32.0-36.0 [facility] Comment on above: Performed By: #### H EMOG, CMP3, AMY3, LIPA4 #### [facility] [address] [place] [address] MCV (RBC) [Entitic vol] 92.8 fL Normal 79.0-98.0 [facility] Comment on above: Performed By: #### H EMOG, CMP3, AMY3, LIPA4 #### [facility] [address] [place] [address] Platelet mean volume (Bld) [Entitic vol] 7.3 fL Low 7.4-10.4 [facility] Comment on above: Performed By: #### H EMOG, CMP3, AMY3, LIPA4 #### [facility] [address] [place] [address] Platelets (Bld) [#/Vol] 231 10*3/uL Normal 140-440 [facility] Comment on above: Performed By: #### H EMOG, CMP3, AMY3, LIPA4 #### [facility] [address] [place] [address] RBC (Bld) [#/Vol] 4.19 10*6/uL Normal 3.80-5.20 [facility] Comment on above: Performed By: #### H EMOG, CMP3, AMY3, LIPA4 #### [facility] [address] [place] [address] WBC (Bld) [#/Vol] 11.2 10*3/uL High 3.6-10.7 [facility] Comment on above: Performed By: #### H EMOG, CMP3, AMY3, LIPA4 #### [facility] [address] [place] [address] Lipaseon 09-14-2018 Lipase [Catalytic activity/Vol] 52 U/L Normal 23-300 [facility] Comment on above: Performed By: #### H EMOG, CMP3, AMY3, LIPA4 #### [facility] [address] [place] [address] Urinalysis,Macroon 9 Appearance (U) CLOUDY Normal Clear [facility] Comment on above: Performed By: #### U AMAC, UAMIC, DRGA4 #### [facility] [address] [place] [address] #### C/UR #### [address] Bilirubin,Ur Negative Normal Negative [facility] Comment on above: Performed By: #### U AMAC, UAMIC, DRGA4 #### [place] [address] [place] [address] #### C/UR #### [address] Color (U) DK YELLOW Normal Lt. Yellow [facility] Comment on above: Performed By: #### U AMAC, UAMIC, DRGA4 #### [facility] [address] [place] [address] #### C/UR #### [address] Glucose Ql (U) Negative Normal Negative [facility] Comment on above: Performed By: #### U AMAC, UAMIC, DRGA4 #### [place] [address] [place] [address] #### C/UR #### [address] [place], [place] Ketone,Urine Negative Normal Negative [facility] Comment on above: Performed By: #### U AMAC, UAMIC, DRGA4 #### [place] [address] [place] [address] #### C/UR #### [place] [address] [place], [place] Nitrite Ql (U) Negative Normal Negative [facility] Comment on above: Performed By: #### U AMAC, UAMIC, DRGA4 #### [place] [address] [place] [address] #### C/UR #### [address] Occult Blood,Ur Negative Normal Negative [facility] Comment on above: Performed By: #### U AMAC, UAMIC, DRGA4 #### [place] [address] [place] [address] #### C/UR #### [address] pH (U) 7.0 Normal 5.0-8.0 [facility] Comment on above: Performed By: #### U AMAC, UAMIC, DRGA4 #### [place] [address] [place] [address] #### C/UR #### [place] [address] [place], [place] Protein (U) [Mass/Vol] 1 + mg/dL Normal Negative [facility] Comment on above: Performed By: #### U AMAC, UAMIC, DRGA4 #### [place] [address] [place] [address] #### C/UR #### [address] Specific [place],Urine 1.028 Normal 1.005-1.030 [facility] Comment on above: Performed By: #### U AMAC, UAMIC, DRGA4 #### [place] [address] [place] [address] #### C/UR #### [address] Urobilinogen Qn (U) 0.2 mg/dL Normal 0-1 [facility] Comment on above: Performed By: #### U AMAC, UAMIC, DRGA4 #### [place] [address] [place] [address] #### C/UR #### [place] [address] [place], [place] WBC (Bld) [#/Vol] 1 + Normal Negative [facility] Comment on above: Performed By: #### U AMAC, UAMIC, DRGA4 #### [place] [address] [place] [address] #### C/UR #### [address] Urinalysis,Microscopicon Bacteria LM.HPF (Urine sed) [#/Area] Moderate (6-50) Normal Negative [facility] Comment on above: Performed By: #### U AMAC, UAMIC, DRGA4 #### [place] [address] [place] [address] #### C/UR #### [address] Ca Oxylate Crystals Few (1-5) Normal Negative [facility] Comment on above: Performed By: #### U AMAC, UAMIC, DRGA4 #### [place] [address] [place] [address] #### C/UR #### [address] Cast, Hyaline 0 - 2 Normal 0-1 [facility] Comment on above: Performed By: #### U AMAC, UAMIC, DRGA4 #### [place] [address] [place] [address] #### C/UR #### [address], [place] Epithelial cells LM.HPF (Urine sed) [#/Area] 11 - 25 Normal 3-5 [facility] Comment on above: Performed By: #### U AMAC, UAMIC, DRGA4 #### [facility] [address] [place] [address] #### C/UR #### [place] [address] [place] [address] Mucous Threads Loaded Normal Negative [facility] Comment on above: Performed By: #### U AMAC, UAMIC, DRGA4 #### [facility] [address] [place] [address] #### C/UR #### [place] [address] [address] [place], [place] RBC LM.HPF (Urine sed) [#/Area] 0 - 2 Normal 0-2 [facility] Comment on above: Performed By: #### U AMAC, UAMIC, DRGA4 #### [facility] [address] [place] [address] #### C/UR #### [place] [address] [address] [place], [place] WBC LM.HPF (Urine sed) [#/Area] 11 - 25 Normal 0-5 [facility] Comment on above: Performed By: #### U AMAC, UAMIC, DRGA4 #### [place] [address] [place] [address] #### C/UR #### [place] [address] [address] [place], [place] CT/NG PCR Panel on GeneXpert on [...] evaluated by nucleic acid amplification techniques. Normal [facility] Comment on above: Performed By: #### C T/NG ####[facility] [address] [phone] Progress Noteon 03-29-2018 [employer] Authentication Interface Message Text Patient ID: Catalina Marvin is a 22 y.o. female. Her chiefcomplaint(s) include: Hair/Scalp Problem (Thinning of hair)Assessment1. Fatigue, unspecified type2. Irregular mensesPlanAshley was seen today for hair/scalp problem.Diagnoses and [...] in house with boyfriend. Working at a [employer]. PT catalina number is [phone].Mom was trying to interject heropinions and Catalina [...] normal air entry.Neurological: She is alert. Normal [facility] Vital Signs Date Time Vital Sign Value Performing Clinician Facility 12-20-2024 10:06-0400 Body mass index (BMI) [Ratio] 21.97 kg/m2 Yosvany Santo MD Work Phone: [facility] 12-20-2024 10:06-0400 Body weight 59.88 kg Yosvany Santo MD Work Phone: [facility] 12-20-2024 10:06-0400 Diastolic blood pressure 76 mm[Hg] Yosvany Santo MD Work Phone: [facility] 12-20-2024 10:06-0400 Systolic blood pressure 108 mm[Hg] Yosvany Santo MD Work Phone: [facility] 12-17-2024 23:24-0400 Body temperature 98.4 [degF] No Primary Care Physician [facility] 12-17-2024 23:24-0400 Diastolic blood pressure 66 mm[Hg] No Primary Care Physician [facility] 12-17-2024 23:24-0400 Heart rate 91 /min No Primary Care Physician [facility] 12-17-2024 23:24-0400 Respiratory rate 17 /min No Primary Care Physician [facility] 12-17-2024 23:24-0400 SaO2% (BldA) [Mass fraction] 99 % No Primary Care Physician [facility] 12-17-2024 23:24-0400 Systolic blood pressure 105 mm[Hg] No Primary Care Physician [facility] 12-17-2024 19:22-0400 Body mass index (BMI) [Ratio] 21.9 kg/m2 No Primary Care Physician [facility] 12-17-2024 19:22-0400 Body weight 59.8 kg No Primary Care Physician [facility] 12-17-2024 18:59-0400 Body height 165.1 cm No Primary Care Physician [facility] 12-31-2022 16:18-0400 Body height 165.1 cm Genesis Polk MD Work Phone: [facility] 12-31-2022 16:18-0400 Body mass index (BMI) [Ratio] 22.13 kg/m2 Genesis Polk MD Work Phone: [facility] 12-31-2022 16:18-0400 Body weight 60.33 kg Genesis Polk MD Work Phone: [facility] 12-31-2022 16:18-0400 Diastolic blood pressure 69 mm[Hg] Genesis Polk MD Work Phone: [facility] 12-31-2022 16:18-0400 Heart rate 79 /min Genesis Polk MD Work Phone: [facility] 12-31-2022 16:18-0400 Systolic blood pressure 102 mm[Hg] Genesis Polk MD Work Phone: [facility] 07-24-2022 11:34-0500 Body mass index (BMI) [Ratio] 23.46 kg/m2 Genesis Polk MD Work Phone: [facility] 07-24-2022 11:34-0500 Body weight 63.96 kg Genesis Polk MD Work Phone: [facility] 07-24-2022 11:34-0500 Diastolic blood pressure 99 mm[Hg] Genesis Polk MD Work Phone: [facility] 07-24-2022 11:34-0500 Heart rate 88 /min Genesis Polk MD Work Phone: [facility] 07-24-2022 11:34-0500 Systolic blood pressure 147 mm[Hg] Genesis Polk MD Work Phone: [facility] 07-23-2022 09:50-0500 Body temperature 98.4 [degF] Dolly Saldivar MD Work Phone: [facility] 07-23-2022 09:50-0500 Diastolic blood pressure 80 mm[Hg] Dolly Saldivar MD Work Phone: [facility] 07-23-2022 09:50-0500 Heart rate 89 /min Dolly Saldivar MD Work Phone: [facility] 07-23-2022 09:50-0500 Respiratory rate 14 /min Dolly Saldivar MD Work Phone: [facility] 07-23-2022 09:50-0500 SaO2% (BldA) [Mass fraction] 99 % Dolly Saldivar MD Work Phone: [facility] 07-23-2022 09:50-0500 Systolic blood pressure 128 mm[Hg] Dolly Saldivar MD Work Phone: [facility] 07-21-2022 21:17-0500 Body height 165.1 cm Dolly Saldivar MD Work Phone: [facility] 07-21-2022 19:36-0500 Diastolic Blood Pressure Non-Invasive 84 1 FLORI TRENT MD [facility] 07-21-2022 19:36-0500 Heart rate 97 /min FLORI TRENT MD [facility] 07-21-2022 19:36-0500 Respiratory rate 17 /min FLORI TRENT MD [facility] 07-21-2022 19:36-0500 Systolic Blood Pressure Non-Invasive 139 1 FLORI TRENT MD [facility] 07-21-2022 19:20-0500 Diastolic Blood Pressure Non-Invasive 86 1 FLORI TRENT MD [facility] 07-21-2022 19:20-0500 Heart rate 98 /min FLORI TRENT MD [facility] 07-21-2022 19:20-0500 Respiratory rate 12 /min FLORI TRENT MD [facility] 07-21-2022 19:20-0500 Systolic Blood Pressure Non-Invasive 129 1 FLORI TRENT MD [facility] 07-21-2022 19:14-0500 Diastolic Blood Pressure Non-Invasive 86 1 FLORI TRENT MD [facility] 07-21-2022 19:14-0500 Heart rate 102 /min FLORI TRENT MD [facility] 07-21-2022 19:14-0500 Respiratory rate 16 /min FLORI TRENT MD [facility] 07-21-2022 19:14-0500 Systolic Blood Pressure Non-Invasive 129 1 FLORI TRENT MD [facility] 07-21-2022 18:00-0500 Heart rate 93 /min FLORI TRENT MD [facility] 07-21-2022 17:55-0500 Heart rate 96 /min FLORI TRENT MD [facility] 07-21-2022 17:25-0500 Body temperature 98.24 [degF] FLORI TRENT MD [facility] 07-21-2022 17:25-0500 Body weight 68.1 kg FLORI TRENT MD [facility] 07-20-2022 16:06-0500 Body temperature 97.39 [degF] Kelvin Amy DO Work Phone: [facility] 07-20-2022 16:06-0500 Diastolic blood pressure 91 mm[Hg] Kelvin Amy DO Work Phone: [facility] 07-20-2022 16:06-0500 Heart rate 78 /min Kelvin Amy DO Work Phone: [facility] 07-20-2022 16:06-0500 Respiratory rate 18 /min Kelvin Amy DO Work Phone: [facility] 07-20-2022 16:06-0500 SaO2% (BldA) [Mass fraction] 99 % Kelvin Amy DO Work Phone: [facility] 07-20-2022 16:06-0500 Systolic blood pressure 133 mm[Hg] Kelvin Amy DO Work Phone: [facility] 07-17-2022 21:44-0500 Body height 165.1 cm Kelvin Amy DO Work Phone: [facility] 07-17-2022 21:44-0500 Body mass index (BMI) [Ratio] 27.66 kg/m2 Kelvin Amy DO Work Phone: [facility] 07-17-2022 21:44-0500 Body weight 75.39 kg Kelvin Amy DO Work Phone: [facility] 07-16-2022 09:40-0500 Body mass index (BMI) [Ratio] 27.46 kg/m2 Dolly Saldivar MD Work Phone: [facility] 07-16-2022 09:40-0500 Body weight 74.84 kg Dolly Saldivar MD Work Phone: [facility] 07-16-2022 09:40-0500 Diastolic blood pressure 88 mm[Hg] Dolly Saldivar MD Work Phone: [facility] 07-16-2022 09:40-0500 Systolic blood pressure 133 mm[Hg] Dolly Saldivar MD Work Phone: [facility] 07-03-2022 19:01-0500 Diastolic blood pressure 71 mm[Hg] Catalina Munguia MD Work Phone: [facility] 07-03-2022 19:01-0500 Heart rate 93 /min Catalina Munguia MD Work Phone: [facility] 07-03-2022 19:01-0500 Systolic blood pressure 113 mm[Hg] Catalina Munguia MD Work Phone: [facility] 07-03-2022 17:06-0500 Body height 165.1 cm Catalina Munguia MD Work Phone: [facility] 07-03-2022 17:06-0500 Body mass index (BMI) [Ratio] 26.96 kg/m2 Catalina Munguia MD Work Phone: [facility] [employer] 07-03-2022 17:06-0500 Body temperature 98.2 [degF] Catalina Munguia MD Work Phone: [facility] [employer] 07-03-2022 17:06-0500 Body weight 73.48 kg Catalina Munguia MD Work Phone: [facility] [employer] 07-03-2022 17:06-0500 Respiratory rate 18 /min Catalina Munguia MD Work Phone: [facility] [employer] 07-03-2022 17:06-0500 SaO2% (BldA) [Mass fraction] 98 % Catalina Munguia MD Work Phone: [facility] [employer] 07-03-2022 11:22-0500 Body mass index (BMI) [Ratio] 26.96 kg/m2 Genesis Polk MD Work Phone: [facility] [employer] 07-03-2022 11:22-0500 Body weight 73.48 kg Genesis Polk MD Work Phone: [facility] [employer] 07-03-2022 11:22-0500 Diastolic blood pressure 77 mm[Hg] Genesis Polk MD Work Phone: [facility] [employer] 07-03-2022 11:22-0500 Systolic blood pressure 126 mm[Hg] Genesis Polk MD Work Phone: [facility] [employer] 06-29-2022 21:44-0500 Body temperature 98.01 [degF] Shaina Lucero MD Work Phone: [facility] [employer] 06-29-2022 21:44-0500 Diastolic blood pressure 66 mm[Hg] Shaina Lucero MD Work Phone: [facility] [employer] 06-29-2022 21:44-0500 Heart rate 79 /min Shaina Lucero MD Work Phone: [facility] [employer] 06-29-2022 21:44-0500 Respiratory rate 18 /min Shaina Lucero MD Work Phone: [facility] [employer] 06-29-2022 21:44-0500 Systolic blood pressure 114 mm[Hg] Shaina Lucero MD Work Phone: [facility] [employer] 06-24-2022 19:30-0500 Body temperature 98.01 [degF] Kay Alvarez DO Work Phone: [facility] [employer] 06-24-2022 19:30-0500 Diastolic blood pressure 83 mm[Hg] Kay Alvarez DO Work Phone: [facility] [employer] 06-24-2022 19:30-0500 Heart rate 96 /min Kay Alvarez DO Work Phone: [employer] 06-24-2022 19:30-0500 Respiratory rate 18 /min Kay Alvarez DO Work Phone: [facility] [employer] 06-24-2022 19:30-0500 Systolic blood pressure 122 mm[Hg] Kay Alvarez DO Work Phone: [facility] [employer] 06-24-2022 17:24-0500 Body height 165.1 cm Kay Alvarez DO Work Phone: [facility] [employer] 06-24-2022 17:24-0500 Body mass index (BMI) [Ratio] 25.96 kg/m2 Kay Fuentesters DO Work Phone: [facility] [employer] 06-24-2022 17:24-0500 Body weight 70.76 kg Kay Alvarez DO Work Phone: [facility] [employer] 06-22-2022 15:00-0500 Heart rate 99 /min Shaina Lucero MD Work Phone: [facility] [employer] 06-22-2022 14:06-0500 Body temperature 98.4 [degF] Shaina Lucero MD Work Phone: [facility] [employer] 06-22-2022 14:06-0500 Diastolic blood pressure 73 mm[Hg] Shaina Lucero MD Work Phone: [facility] [employer] 06-22-2022 14:06-0500 Respiratory rate 18 /min Shaina Lucero MD Work Phone: [facility] [employer] 06-22-2022 14:06-0500 Systolic blood pressure 118 mm[Hg] Shaina Lucero MD Work Phone: [facility] [employer] 06-19-2022 17:20-0500 Body temperature 98.2 [degF] Catalina Munguia MD Work Phone: [facility] [employer] 06-19-2022 17:20-0500 Diastolic blood pressure 76 mm[Hg] Catalina Munguia MD Work Phone: [facility] [employer] 06-19-2022 17:20-0500 Heart rate 86 /min Catalina Munguia MD Work Phone: [employer] 06-19-2022 17:20-0500 Respiratory rate 18 /min Catalina Munguia MD Work Phone: [facility] [employer] 06-19-2022 17:20-0500 Systolic blood pressure 125 mm[Hg] Catalina Munguia MD Work Phone: [facility] [employer] 06-19-2022 16:11-0500 Body mass index (BMI) [Ratio] 25.96 kg/m2 Dolly Saldivar MD Work Phone: [facility] [employer] 06-19-2022 16:11-0500 Body weight 70.76 kg Dolly Saldivar MD Work Phone: [facility] [employer] 06-19-2022 16:11-0500 Diastolic blood pressure 77 mm[Hg] Dolly Saldivar MD Work Phone: [facility] [employer] 06-19-2022 16:11-0500 Systolic blood pressure 120 mm[Hg] Dolly Saldivar MD Work Phone: [facility] [employer] 06-05-2022 14:26-0500 Body mass index (BMI) [Ratio] 24.96 kg/m2 Genesis Polk MD Work Phone: [facility] [employer] 06-05-2022 14:26-0500 Body weight 68.04 kg Genesis Polk MD Work Phone: [facility] [employer] 06-05-2022 14:26-0500 Diastolic blood pressure 80 mm[Hg] Genesis Polk MD Work Phone: [facility] [employer] 06-05-2022 14:26-0500 Systolic blood pressure 128 mm[Hg] Genesis Polk MD Work Phone: [facility] [employer] 02-03-2022 16:58-0400 Diastolic blood pressure 72 mm[Hg] Tyrese Faye MD Work Phone: [facility] 02-03-2022 16:58-0400 Heart rate 110 /min Tyrese Faye MD Work Phone: [facility] 02-03-2022 16:58-0400 Respiratory rate 18 /min Tyrese Faye MD Work Phone: [facility] 02-03-2022 16:58-0400 SaO2% (BldA) [Mass fraction] 100 % Tyrese Faye MD Work Phone: [facility] 02-03-2022 16:58-0400 Systolic blood pressure 110 mm[Hg] Tyrese Faye MD Work Phone: [facility] 02-03-2022 14:35-0400 Body mass index (BMI) [Ratio] 21.47 kg/m2 Tyrese Faye MD Work Phone: [facility] 02-03-2022 14:35-0400 Body temperature 97.5 [degF] Tyrese Faye MD Work Phone: [facility] 02-03-2022 14:35-0400 Body weight 58.51 kg Tyrese Faye MD Work Phone: [facility] 12-09-2021 23:23-0400 Diastolic blood pressure 73 mm[Hg] DAMARIS REICHFIELD DO [facility] 12-09-2021 23:23-0400 Heart rate 81 /min DAMARIS REICHFIELD DO [facility] 12-09-2021 23:23-0400 Respiratory rate 18 /min DAMARIS REICHFIELD DO [facility] 12-09-2021 23:23-0400 Systolic blood pressure 115 mm[Hg] DAMARIS REICHFIELD DO [facility] 12-09-2021 19:45-0400 Body height 165.1 cm DAMARIS REICHFIELD DO [facility] 12-09-2021 19:45-0400 Body temperature 98.96 [degF] DAMARIS REICHFIELD DO [facility] 12-09-2021 19:45-0400 Body weight 59.1 kg DAMARIS REICHFIELD DO [facility] 12-09-2021 19:45-0400 Diastolic blood pressure 77 mm[Hg] DAMARIS REICHFIELD DO [facility] 12-09-2021 19:45-0400 Heart rate 90 /min DAMARIS REICHFIELD DO [facility] 12-09-2021 19:45-0400 Respiratory rate 18 /min [facility] 12-09-2021 19:45-0400 Systolic blood pressure 112 mm[Hg] [facility] 04-15-2021 04:44-0500 Diastolic blood pressure 81 mm[Hg] MARIA L NUNEZ MD [facility] 04-15-2021 04:44-0500 Heart rate 95 /min MARIA L NUNEZ MD [facility] 04-15-2021 04:44-0500 Respiratory rate 16 /min MARIA L NUNEZ MD [facility] 04-15-2021 04:44-0500 Systolic blood pressure 112 mm[Hg] MARIA L NUNEZ MD [facility] 04-15-2021 03:54-0500 Body height 165.1 cm MARIA L NUNEZ MD [facility] 04-15-2021 03:54-0500 Body temperature 98.06 [degF] MARIA L NUNEZ MD [facility] 04-15-2021 03:54-0500 Body weight 59.1 kg MARIA L NUNEZ MD [facility] 04-15-2021 03:54-0500 Diastolic blood pressure 78 mm[Hg] MARIA L NUNEZ MD [facility] 04-15-2021 03:54-0500 Heart rate 99 /min MARIA L NUNEZ MD [facility] 04-15-2021 03:54-0500 Respiratory rate 15 /min MARIA L NUNEZ MD [facility] 04-15-2021 03:54-0500 Systolic blood pressure 109 mm[Hg] MARIA L NUNEZ MD [facility] Encounters Encounter Date Encounter Type Care Provider Facility Start: 12-20-2024 End: 12-20-2024 Patient encounter procedure Yosvany Santo MD Work Phone: OB/Gynecology Comment on above: Ovarian cyst rupture (Primary Dx); Screening for STD (sexually transmitted disease) Start: 12-20-2024 End: 12-20-2024 ambulatory YOSVANY SANTO Facility:[facility] Start: 12-19-2024 End: 12-19-2024 Emergency department patient visit DR JUAN M GARCIA MD [facility] Start: 12-17-2024 End: 12-17-2024 Emergency department patient visit No Primary Care Physician -Emergency Department Work Phone: Start: 12-31-2022 End: 12-31-2022 ambulatory [facility] Start: 12-31-2022 End: 12-31-2022 Patient encounter procedure Genesis Polk MD Work Phone: [facility] [employer] Work Phone: Start: 12-31-2022 End: 12-31-2022 Periodic preventive med est patient 18-39 yrs Genesis Polk MD Work Phone: [facility] Obstetrics & Gynecology Comment on above: Women's annual routi ne gynecological examination (Primary Dx); depression Start: 07-24-2022 End: 07-24-2022 ambulatory [facility] Start: 07-24-2022 End: 07-24-2022 Office outpatient visit 15 minutes Genesis Polk MD Work Phone: [facility] Obstetrics & Gynecology Comment on above: hypertens ion (Primary Dx) Start: 07-21-2022 End: 07-23-2022 ambulatory TIANA ARENAS [facility] Start: 07-21-2022 End: 07-23-2022 Evaluation and management of inpatient Dolly Saldivar MD Work Phone: [facility] Start: 07-21-2022 End: 07-21-2022 Emergency department patient visit FLORI TRENT MD Facility:B Start: 07-21-2022 End: 07-21-2022 Emergency department patient visit FLORI TRENT MD [facility] Start: 07-21-2022 Telephone encounter Kelvin nice DO Work Phone: [facility] Obstetrics & Gynecology Comment on above: Other Start: 07-20-2022 Telephone encounter Shaina Lucero MD Work Phone: [facility] [employer] Underwriter Start: 07-17-2022 End: 07-20-2022 [facility] Start: 07-17-2022 End: 07-20-2022 Evaluation and management of inpatient Kelvin Reyes DO Work Phone: [facility] Start: 07-16-2022 End: 07-16-2022 ambulatory [facility] Comment on above: Encounter for superv ision of other normal , third trimester (Primary Dx); Dichorionic diamniotic twin in second trimester Start: 07-16-2022 Patient encounter procedure Tarsha Thompson RN [facility] Clinical Communication Start: 07-16-2022 End: 07-16-2022 Subsequent care visit Dolly Saldivar MD Work Phone: [facility] [place] [employer] SUPERVISOR Comment on above: Dichorionic diamniot ic twin in third trimester (Primary Dx) Start: 07-13-2022 Orders Only Genesis mustafa MD Work Phone: [facility] [place] [employer] SUPERVISOR Comment on above: Dichorionic diamniot ic twin in second trimester (Primary Dx) Start: 07-10-2022 End: 07-10-2022 ambulatory [facility] Start: 07-03-2022 End: 07-03-2022 ambulatory [facility] Start: 07-03-2022 End: 07-03-2022 Subsequent hospital visit by physician Catalina Munguia MD Work Phone: [facility] Start: 07-03-2022 End: 07-03-2022 ambulatory [facility] Start: 07-03-2022 End: 07-03-2022 Subsequent care visit Genesis Polk MD Work Phone: [facility] [employer] PRODUCTION SUPERVISOR Comment on above: Encounter for superv ision of other normal , third trimester (Primary Dx); Dichorionic diamniotic twin in second trimester Start: 07-01-2022 Telephone encounter Genesis Polk MD Work Phone: [facility] [employer] PRODUCTION SUPERVISOR Comment on above: Cancelled Appointmen t (07/01/2022 US cancelled) Start: 06-29-2022 End: 06-30-2022 ambulatory [facility] Start: 06-29-2022 End: 06-29-2022 Subsequent hospital visit by physician Shaina Lucero MD Work Phone: [facility] Start: 06-25-2022 End: 03-09-2025 ambulatory Rhonda Smith RN [facility] Clinical Communication Start: 06-25-2022 End: 03-09-2025 Patient encounter [facility] Start: 06-24-2022 End: 06-24-2022 ambulatory [facility] Start: 06-24-2022 End: 06-24-2022 Subsequent hospital visit by physician Kay Alvarez DO Work Phone: [facility] Start: 06-24-2022 Telephone encounter Genesis Polk MD Work Phone: [facility] [place] [employer] PRODUCTION SUPERVISOR Comment on above: Updated fax # Start: 06-23-2022 ambulatory Fernanda Cox RN [facility] Cl inical Communication Start: 06-23-2022 Patient encounter procedure [facility] Start: 06-23-2022 Telephone encounter Dolly bolden MD Work Phone: [facility] [employer] PRODUCTION SUPERVISOR Comment on above: Results; Release of Information Start: 06-22-2022 End: 06-22-2022 ambulatory [facility] Start: 06-22-2022 Patient encounter procedure Linsey Herzog ANUM [facility] Clinical Communication Start: 06-22-2022 End: 06-22-2022 Subsequent hospital visit by physician Shaina Lucero MD Work Phone: [facility] Start: 06-19-2022 End: 06-19-2022 ambulatory [facility] Start: 06-19-2022 End: 06-19-2022 Subsequent hospital visit by physician Catalina Munguia MD Work Phone: [facility] Start: 06-19-2022 End: 06-19-2022 Subsequent care visit Dolly Saldivar MD Work Phone: [facility] [place] [employer]ODUCTION SUPERVISOR Comment on above: Anemia during pregna ncy (Primary Dx) Start: 06-05-2022 End: 06-05-2022 ambulatory [facility] Start: 06-05-2022 End: 06-05-2022 Subsequent care visit Genesis Polk MD Work Phone: [facility] PUBL[employer] PRODUCTION SUPERVISOR Comment on above: Encounter for superv ision of other normal , third trimester (Primary Dx); Twin gestation, unable to determine number of placenta and number of amniotic sacs in second trimester Start: 05-27-2022 End: 05-27-2022 ambulatory [facility] Start: 05-20-2022 End: 05-20-2022 ambulatory [facility] Start: 05-06-2022 End: 05-06-2022 ambulatory [facility] Start: 04-20-2022 End: 04-20-2022 ambulatory MARK DOWD [facility] Start: 04-19-2022 End: 04-20-2022 ambulatory UNKNOWN PROVIDER Facility:B Start: 04-08-2022 End: 04-08-2022 ambulatory MARK DOWD [facility] Start: 04-07-2022 End: 04-07-2022 ambulatory GENESIS POLK [facility] Start: 04-03-2022 End: 04-03-2022 ambulatory RAMONA HALL [facility] Start: 02-03-2022 End: 02-03-2022 Emergency department patient visit Tyrese Faye MD Work Phone: [facility] Emergency Dept Comment on above: Fall, initial encoun ter (Primary Dx); Abdominal pain in , unspecified trimester Start: 02-03-2022 Telephone encounter Dinah burnett APRN.CNP Work Phone: [facility] Obstetrics and Gynecology Comment on above: Orders Start: 12-09-2021 End: 12-10-2021 Emergency department patient visit DAMARIS FLORES DO Facility:[facility] Start: 12-09-2021 End: 12-09-2021 [facility] Start: 04-15-2021 End: 04-15-2021 Emergency department patient visit MARIA L NUNEZ MD [facility] Start: 07-23-2018 End: 07-23-2018 Evaluation and management of inpatient [facility] Start: 03-29-2018 End: 03-29-2018 Patient encounter procedure ORACIO MARLEY [facility] Procedures Date Procedure Procedure Detail Performing Clinician Start: 12-17-2024 Urnls dip stick/tabl et reagent auto microscopy No Primary Care Physician Start: 12-17-2024 Estimated creatinine clearance No Primary Care Physician Start: 12-17-2024 Computed tomography of abdomen and pelvis with intravenous contrast No Primary Care Physician Start: 12-31-2022 Microscopic observat ion [Identifier] in Cervix by Cyto stain Kathy Bloom RN Start: 07-24-2022 care Care CLEO POLK Start: 07-22-2022 Blood typing serolog ic [...] stick/tabl et rgnt auto w/o microscopy Domitila Johnson PA-C Work Phone: Start: 02-03-2022 Us uterus l imited 1/> fetuses Domitila Johnson PA-C Work Phone: Start: 02-03-2022 Gonadotropin chorion ic quantitative Domitila Johnson PA-C Work Phone: Start: 01-25-2020 Antibody screen Comment on above: Performed By: #### T &S #### [place] [id number] Start: 04-19-2016 Tooth and periodonti um operation FLORI TRENT MD Start: 05-31-2002 Tonsil and adenoid structure (body structure) FLORI TRENT MD None (qualifier value) MARIA L NUNEZ MD Plan of Treatment Date Care Activity Detail Author Start: 2072 RSV Immunization for Adults (1 - 1-dose 75+ series) RSV Immunization for Adults (1 - 1-dose 75+ series) [facility] Start: 10-13-2047 Zoster Vaccines (1 of 2) Zoste r Vaccines (1 of 2) [facility] Start: 05-06-2032 DTaP/Tdap/Td Vaccine s (8 - Td or Tdap) DTaP/Tdap/Td Vaccines (8 - Td or Tdap) [facility] Start: 05-06-2032 Urine microalbumin profile DTaP,Tdap,Td Vaccine (8 - Td or Tdap) [facility] Start: 12-31-2025 Screening for malign ant neoplasm of cervix [facility] Start: 04-03-2025 Screening for malign ant neoplasm of cervix Pap Smear [facility] Start: 01-29-2025 COVID-19 Vaccine ( season) COVID-19 Vaccine ( season) [facility] Start: 01-29-2025 Influenza vaccination Influenza Vacc ine (#1) [facility] Start: 02-04-2023 End: 02-04-2023 Patient encounter procedure 02/04/2023 2:45 PM EDT Office Visit [facility] Obstetrics & Gynecology [address] [place] [address] Genesis Polk MD [address] [place] [address] [address] [place] [address] [facility] Obstetrics & Gynecology Start: 01-29-2023 Influenza vaccination Influenza Vacc ine (#1) [facility] Start: 07-31-2022 End: 07-31-2022 Patient encounter procedure 07/31/2022 Routine Obstetrics and Gynecology Genesis Polk MD [address] [place] [address] [facility] [place] [employer] PRODUCTION SUPERVISOR Start: 07-31-2022 End: 07-31-2022 Professional / ancillary services management 07/31/2022 [facility]illary [facility] [employer] SUPER[employer] Start: 07-24-2022 End: 07-24-2022 Patient encounter procedure [facility] PUBLICATIONS PRODUCTION SUPERVISOR Start: 07-24-2022 End: 07-24-2022 Professional / ancillary services management 07/24/2022 Ancillary Procedure Obstetrics and Gynecology [facility] PUBLICATIONS PRODUCTION SUPERVISOR Start: 07-16-2022 End: 07-16-2023 US biophysical profile wo non stress testing [facility] Work Phone: Comment on above: Expected: 07/16/2022 , Expires: 07/13/2023 Expected: 07/16/2022 , Expires: 07/16/2023 Start: 07-16-2022 End: 07-16-2022 Patient encounter procedure 07/16/2022 Routine Obstetrics and Gynecology Dolly Saldivar MD [address] [place] [address] [facility] PUBLICATIONS PRODUCTION SUPERVISOR Start: 07-16-2022 End: 07-16-2022 Professional / ancillary services management 07/16/2022 Ancillary Procedure Obstetrics and Gynecology [facility] PUBLICATION[employer] PRODUCTION SUPERVISOR Start: 07-10-2022 End: 07-03-2023 US biophysical profile wo non stress testing US biophysical profile wo non stress testing Imaging Routine Encounter for supervision of other normal , third trimester Dichorionic diamniotic twin in second trimester Expected: 07/10/2022, Expires: 07/03/2023 [facility] Comment on above: Expected: 07/10/2022 , Expires: 07/03/2023 Start: 07-10-2022 End: 07-10-2022 Patient encounter procedure 07/10/2022 Routine Obstetrics and Gynecology Genesis Polk MD [address] [place] [address] [facility] PUBLICATIONS PRODUCTION SUPERVISOR Start: 07-10-2022 End: 07-10-2022 Professional / ancillary services management 07/10/2022 Ancillary Procedure Obstetrics and Gynecology [facility] [place] PUBLICATION[employer] PRODUCTION SUPERVISOR Start: 07-03-2022 End: 07-03-2022 Patient encounter procedure 07/03/2022 Routine Obstetrics and Gynecology Genesis Polk MD [address] [place] [address] [facility] [place] PUBLICATIONS PRODUCTION SUPERVISOR Start: 07-03-2022 End: 07-03-2022 Professional / ancillary services management 07/03/2022 Ancillary Procedure Obstetrics and Gynecology [facility] [place] PUBLICATIONS PRODUCTION SUPERVISOR Start: 06-25-2022 End: 06-25-2022 Patient encounter procedure 06/25/2022 Routine Obstetrics and Gynecology Aliza Rehman APRN - CNM [address] [place] [address] [facility] [place] PUBLICATION[employer] PRODUCTION SUPERVISOR Start: 06-25-2022 End: 06-25-2022 Professional / ancillary services management 06/25/2022 Ancillary Procedure Obstetrics and Gynecology [facility] [place] PUBLICATIONS PRODUCTION SUPERVISOR Start: 06-19-2022 End: 06-19-2022 Patient encounter procedure 06/19/2022 Routine Obstetrics and Gynecology Dolly Saldivar MD [address] [place] [address] [facility] [place] PUBLICATIONS PRODUCTION SUPERVISOR Start: 06-19-2022 End: 06-19-2023 CBC W Auto Differential panel - Blood CBC auto differential Lab Routine Anemia during Expected: 06/19/2022 (Approximate), Expires: 06/19/2023 [facility] [employer] [facility] Work Phone: Comment on above: Expected: 06/19/2022 (Approximate), Expires: 06/19/2023 Start: 06-19-2022 PAP TESTING PAP TESTING [facility] Start: 02-03-2022 End: 04-05-2022 Choriogonadotropin.beta subunit [Units/volume] in Serum or Plasma HCG QUANTITATIVE Lab Routine Secondary amenorrhea Expected: 02/03/2022, Expires: 04/05/2022 [facility] Work Phone: Comment on above: Expected: 02/03/2022 , Expires: 04/05/2022 Start: 01-29-2022 Influenza vaccination [facility] Start: 11-14-2018 DTaP/Tdap/Td vaccine (7 - Td or Tdap) DTaP/Tdap/Td vaccine (7 - Td or Tdap) [facility] Start: 11-14-2018 Urine microalbumin profile DTAP,TDAP,TD (7 - Td or Tdap) [facility] Start: 2018 Screening for malign ant neoplasm of cervix Pap smear [facility] Start: 10-13-2015 Anxiety Screening Anxiety Screening [facility] Start: 10-13-2015 Hepatitis C screening Hepatitis C sc reen [facility] Start: 2013 Screening for Chlamy antonette trachomatis Chlamydia screen [facility] Start: 2012 HIV screening HIV screen [facility] Start: 10-13-2011 PEDS TO ADULT TRANSI TION ANNUAL ASSESSMENT PEDS TO ADULT TRANSITION ANNUAL ASSESSMENT [facility] Start: 2009 Adult depression screening assessment DEPRESSION SCREENING [facility] Start: 2009 Depression Monitoring Depression Mon itoring [facility] Start: 2009 Depression Screen Depression Screen [facility] Start: 2009 Depresssion Monitoring Depresssion M onitoring [facility] Start: 2009 PEDS TO ADULT TRANSI TION INITIAL DISCUSSION PEDS TO ADULT TRANSITION INITIAL DISCUSSION [facility] Start: 10-13-2007 MENINGOCOCCAL B: Consider based on risk (1 of 2 - Risk Bexsero 2-dose series) MENINGOCOCCAL B: Consider based on risk (1 of 2 - Risk Bexsero 2-dose series) [facility] Start: 04-14-1998 COVID-19 VACCINE (#1) COVID-19 VACCI NE (#1) [facility] Start: 1997 Lipid panel Lipid Panel [facility] Chlamydia trachomatis+Neisseria gonorrhoeae DNA [Presence] in Unspecified specimen by SOPHIA with probe detection GONORRHEA/CHLAMYDIA NAAT Lab Routine Screening for STD (sexually transmitted disease) 12/20/2024 12:38 PM EDT [facility] Work Phone: Cytology Cervical or vaginal smear or scraping study Pap Smear Pathology and Cytology Routine Women's annual routine gynecological examination 12/31/2022 5:17 PM EDT [facility] [place] [facility]: Patient Education ED Abdominal P ain Unkn Cause Fem ED Ovarian Cyst ED Fainting, Vagal Reaction [facility] Work Phone: Streptococcus agalac tiae DNA [Presence] in Unspecified specimen by SOPHIA with probe detection Group B Strep Screen PCR Microbiology Routine Encounter for supervision of other normal , third trimester Ordered: 07/03/2022 [facility] [employer] [facility] Work Phone: Comment on above: Ordered: 07/03/2022 Immunizations Immunization Date Immunization Notes Care Provider Liborio collier 07-19-2022 diphtheria, tetanus toxoids and acellular pertussis vaccine, unspecified formulation Mobi Rider DO Work Phone: [facility] [employer] 07-19-2022 measles, mumps and rubella virus vaccine Kelvin Keclon DO Work Phone: [facility] 05-06-2022 influenza, seasonal, injectable, preservative free Genesis Polk MD Work Phone: [facility] 05-06-2022 tetanus toxoid, redu arlyn diphtheria toxoid, and acellular pertussis vaccine, adsorbed Genesis Polk MD Work Phone: [facility] 05-06-2022 influenza virus vacc ine, unspecified formulation Genesis Polk MD Work Phone: [facility] 05-16-2019 influenza, injectabl e, quadrivalent, contains preservative Dinah Klutts PICKING MACHINE OPERATOR HELPER.TECHNICAL PUBLICATIONS MANAGER Work Phone: [facility] 02-05-2016 meningococcal oligosaccharide (groups A, C, Y and W-135) diphtheria toxoid conjugate vaccine (MCV4O) Dinah Klutts PICKING MACHINE OPERATOR HELPER.TECHNICAL PUBLICATIONS MANAGER Work Phone: [facility] 02-05-2016 meningococcal polysaccharide (groups A, C, Y and W-135) diphtheria toxoid conjugate vaccine (MCV4P) Dinah Klutts PICKING MACHINE OPERATOR HELPER.TECHNICAL PUBLICATIONS MANAGER Work Phone: [facility] 03-16-2014 influenza virus vacc ine, whole virus Dinah Klutts PICKING MACHINE OPERATOR HELPER.TECHNICAL PUBLICATIONS MANAGER Work Phone: [facility] 04-24-2011 influenza, injectabl e, quadrivalent, preservative free Dinah Klutts PICKING MACHINE OPERATOR HELPER.TECHNICAL PUBLICATIONS MANAGER Work Phone: [facility] 04-24-2011 influenza, seasonal, injectable Dinah Klutts PICKING MACHINE OPERATOR HELPER.TECHNICAL PUBLICATIONS MANAGER Work Phone: [facility] 05-21-2009 human papilloma viru s vaccine, quadrivalent Dinah Klutts PICKING MACHINE OPERATOR HELPER.TECHNICAL PUBLICATIONS MANAGER Work Phone: [facility] 01-18-2009 human papilloma viru s vaccine, quadrivalent Dinah Klutts PICKING MACHINE OPERATOR HELPER.TECHNICAL PUBLICATIONS MANAGER Work Phone: [facility] 11-14-2008 human papilloma viru s vaccine, quadrivalent Dinah Klutts PICKING MACHINE OPERATOR HELPER.TECHNICAL PUBLICATIONS MANAGER Work Phone: [facility] 11-14-2008 meningococcal oligosaccharide (groups A, C, Y and W-135) diphtheria toxoid conjugate vaccine (MCV4O) Dinah Klutts PICKING MACHINE OPERATOR HELPER.TECHNICAL PUBLICATIONS MANAGER Work Phone: [facility] 11-14-2008 meningococcal polysaccharide (groups A, C, Y and W-135) diphtheria toxoid conjugate vaccine (MCV4P) Dinah Klutts PICKING MACHINE OPERATOR HELPER.TECHNICAL PUBLICATIONS MANAGER Work Phone: [facility] 11-14-2008 tetanus toxoid, redu arlyn diphtheria toxoid, and acellular pertussis vaccine, adsorbed Dinah Klutts PICKING MACHINE OPERATOR HELPER.TECHNICAL PUBLICATIONS MANAGER Work Phone: [facility] 02-14-2008 varicella virus vaccine Andrew ie Klutts PICKING MACHINE OPERATOR HELPER.TECHNICAL PUBLICATIONS MANAGER Work Phone: [facility] 03-10-2002 diphtheria, tetanus toxoids and acellular pertussis vaccine Dinah Klutts PICKING MACHINE OPERATOR HELPER.TECHNICAL PUBLICATIONS MANAGER Work Phone: [facility] 03-10-2002 measles, mumps and rubella virus vaccine Dinah Klutts PICKING MACHINE OPERATOR HELPER.TECHNICAL PUBLICATIONS MANAGER Work Phone: [facility] 03-10-2002 poliovirus vaccine, inactivated Dinah Klutts PICKING MACHINE OPERATOR HELPER.TECHNICAL PUBLICATIONS MANAGER Work Phone: [facility] 01-14-1999 diphtheria, tetanus toxoids and acellular pertussis vaccine Dinah Klutts PICKING MACHINE OPERATOR HELPER.TECHNICAL PUBLICATIONS MANAGER Work Phone: [facility] 01-14-1999 haemophilus influenz ae type b vaccine, PRP-T conjugate Dinah Klutts PICKING MACHINE OPERATOR HELPER.TECHNICAL PUBLICATIONS MANAGER Work Phone: [facility] 10-14-1998 measles, mumps and rubella virus vaccine Dinah Klutts PICKING MACHINE OPERATOR HELPER.TECHNICAL PUBLICATIONS MANAGER Work Phone: [facility] 10-14-1998 poliovirus vaccine, inactivated Dinah Klutts PICKING MACHINE OPERATOR HELPER.TECHNICAL PUBLICATIONS MANAGER Work Phone: [facility] 10-14-1998 varicella virus vaccine Andrew ie Klutts PICKING MACHINE OPERATOR HELPER.TECHNICAL PUBLICATIONS MANAGER Work Phone: [facility] 07-15-1998 hepatitis B vaccine, pediatric or pediatric/adolescent dosage Dinah Klutts PICKING MACHINE OPERATOR HELPER.TECHNICAL PUBLICATIONS MANAGER Work Phone: [facility] 04-15-1998 diphtheria, tetanus toxoids and acellular pertussis vaccine Dinah Klutts PICKING MACHINE OPERATOR HELPER.TECHNICAL PUBLICATIONS MANAGER Work Phone: [facility] 04-15-1998 haemophilus influenz ae type b vaccine, PRP-T conjugate Dinah Klutts PICKING MACHINE OPERATOR HELPER.TECHNICAL PUBLICATIONS MANAGER Work Phone: [facility] 02-12-1998 diphtheria, tetanus toxoids and acellular pertussis vaccine Dinah Klutts PICKING MACHINE OPERATOR HELPER.TECHNICAL PUBLICATIONS MANAGER Work Phone: [facility] 02-12-1998 haemophilus influenz ae type b vaccine, PRP-T conjugate Dinah Klutts PICKING MACHINE OPERATOR HELPER.TECHNICAL PUBLICATIONS MANAGER Work Phone: [facility] 02-12-1998 poliovirus vaccine, inactivated Dinah Klutts PICKING MACHINE OPERATOR HELPER.TECHNICAL PUBLICATIONS MANAGER Work Phone: [facility] 1997 diphtheria, tetanus toxoids and acellular pertussis vaccine Dinah Klutts PICKING MACHINE OPERATOR HELPER.TECHNICAL PUBLICATIONS MANAGER Work Phone: [facility] 1997 haemophilus influenz ae type b vaccine, PRP-T conjugate Dinha Enid PICKING MACHINE OPERATOR HELPER.TECHNICAL PUBLICATIONS MANAGER Work Phone: [facility] 1997 poliovirus vaccine, inactivated Dinah Kltracijimmie PICKING MACHINE OPERATOR HELPER.TECHNICAL PUBLICATIONS MANAGER Work Phone: [facility] 1997 hepatitis B vaccine, pediatric or pediatric/adolescent dosage Dinah Klutts PICKING MACHINE OPERATOR HELPER.TECHNICAL PUBLICATIONS MANAGER Work Phone: [facility] 1997 hepatitis B vaccine, pediatric or pediatric/adolescent dosage Dinah Klutts PICKING MACHINE OPERATOR HELPER.TECHNICAL PUBLICATIONS MANAGER Work Phone: [facility] NEGATED: Highlighted row has not occurred!07-19-2022 RHO(D) immune globulin - IM Kelvin Reyes DO Work Phone: [facility] [employer] Comment on above: Deferred: Contraindi cation NEGATED: Highlighted row has not occurred!01-10-2019 diphtheria, tetanus toxoids and acellular pertussis vaccine Dinah Mauricejimmie PICKING MACHINE OPERATOR HELPER.TECHNICAL PUBLICATIONS MANAGER Work Phone: [facility] Comment on above: Deferred: Patient Re fused Payers Date Payer Category Payer Private Health Insurance [id number] 2024 Private Health Insurance [id number] 2024 Self-pay 2023 Private Health Insurance [id number] 2018 Unknown [id number] 2018 Medicaid [id number] 2011 Commercial Managed Care - HMO [id number] 2011 Unknown [id number] 1997 Unknown [id number] [id number] 1997 Unknown [id number] [id number] 1997 Unknown [id number] [id number] 1997 Unknown [id number] [id number] 1997 Unknown [id number] [id number] 1997 Unknown [id number] 1959 Unknown [id number] Unknown [id number] Unknown [id number] [id number] Social History Date Type Detail Facility Never smoker [facility] Start: 1997 Sex Assigned At Female A [facility] Tobacco smoking status [facility] Start: 07-05-2017 End: 12-20-2024 Tobacco smoking status MDIS Never smoked tobacco [facility] Start: 07-05-2017 End: 12-20-2024 Tobacco use and exposure Smokeless tobacco non-user [facility] Start: 02-02-2020 End: 12-20-2024 Alcohol intake Current non-drinker of alcohol (finding) [facility] Start: 11-15-2019 End: 02-02-2020 History SDOH Alcohol Frequency 3 [facility] Start: 02-02-2020 End: 07-22-2022 History SDOH Alcohol Std Drinks 1 [facility] Start: 02-02-2020 End: 07-22-2022 History SDOH Alcohol Binge 2 [facility] Start: 11-29-2017 History SDOH Alcohol Comment social [facility] Start: 11-15-2019 History SDOH Social Connections Phone 4 [facility] Start: 11-15-2019 History SDOH Social Connections Living 8 [facility] Start: 11-15-2019 History SDOH Physica l Activity DPW 6 [facility] Start: 11-15-2019 History SDOH Physica l Activity MPS 13 [facility] Start: 11-15-2019 Education 12 [facility] Start: 1997 Sex Assigned At Not on file C [facility] Start: 01-24-2022 End: 12-31-2022 Exposure to SARS-CoV-2 (event) Not sure [facility] Work Phone: Start: 06-19-2022 End: 07-21-2022 Alcohol intake Ex-drinker (finding) [facility] Start: 07-17-2022 End: 07-21-2022 History of Social function [facility] Start: 07-17-2022 End: 07-21-2022 Humiliation, Afraid, Rape, and Kick questionnaire [HARK] [facility] Within the last year , have you been afraid of your partner or ex-partner? No [facility] In the past 12 month s, has lack of transportation kept you from medical appointments or from getting medications? No [facility] Start: 11-07-2021 [facility] Start: 11-11-2019 Alcohol Alcohol [facility] Start: 11-11-2019 Lives Lives [facility] Start: 02-23-2021 End: 12-29-2021 Sex Female (finding) [facility] Do you belong to any clubs or organizations such as evangelical groups, unions, fraternal or athletic groups, or school groups? Yes [facility] Are you now , , , , never or living with a partner? Living with partner [facility] How often to you hav e a drink containing alcohol? 2-4 times a month [facility] How many standard dr inks containing alcohol do you have on a typical day? 1 or 2 [facility] How often do you hav e 6 or more drinks on 1 occasion? Less than monthly [facility] Do you feel stress - tense, restless, nervous, or anxious, or unable to sleep at night because your mind is troubled all the time - these days [OSQ] To some extent [facility] (I/We) worried whealcides er (my/our) food would run out before (I/we) got money to buy more. Never true [facility] Functional Status Date Assessment Result Facility 07-21-2022 Functional Status Ambulation in [facility] 12-09-2021 Functional Status Up ad cecilia [facility] 01-11-2019 Are you deaf, or do you have serious difficulty hearing No 01/11/2019 11:09 AM Maria L Kumar RN No [facility] 01-11-2019 Are you blind, or do you have serious difficulty seeing, even when wearing glasses No 01/11/2019 11:09 AM Maria L Kumar RN No [facility] 01-11-2019 Do you have serious difficulty walking or climbing stairs No 01/11/2019 11:09 AM Maria L Kumar RN No [facility] 01-11-2019 Do you have difficul ty dressing or bathing No 01/11/2019 11:09 AM Maria L Kumar RN No [facility] 01-11-2019 Because of a physica l, mental, or emotional condition, do you have difficulty doing errands alone such as visiting a physician's office or shopping No 01/11/2019 11:09 AM Maria L Kumar RN No [facility] Mental Status Date Assessment Result Facility 12-17-2024 Cognitive function Level Of Cons ciousness Awake;Alert;Appropriate;Fol lows Commands [facility] Work Phone: 07-21-2022 Mental Status Orientation Oriented x 4 [facility] 12-09-2021 Mental Status Orientation Oriented x 4 [facility] 12-09-2021 Mental Status [facility] 01-11-2019 Because of a physica l, mental, or emotional condition, do you have serious difficulty concentrating, remembering, or making decisions No 01/11/2019 11:09 AM Maria L Kumar RN No [facility] Clinical Notes 01-09-2019 to 12-20-2024 Addendum Note - Yosvany Santo MD - 12/20/2024 12:29 PM EDTAddendum Note - Yosvany Santo MD - 12/20/2024 12:29 PM EDTAddendum Note - Anila Onofre MA - 12/20/2024 11:41 AM EDT Note Date & Type Note Facility 12-20-2024 Note Addended by: YOSVANY SANTO on: 12/20/2024 12:29 PM Modules accepted: Orders [facility] 12-20-2024 Miscellaneous Notes Addended by: YOSVANY SANTO on: 12/20/2024 12:29 PM Modules accepted: Orders Addended by: ANILA ONOFRE on: 12/20/2024 11:41 AM Modules accepted: Orders documented in this encounter [facility] 12-20-2024 Note Addended by: ANILA ONOFRE on: 12/20/2024 11:41 AM Modules accepted: Orders [facility] 12-20-2024 Note HNO ID: [id number] Author: YOSVANY SANTO MD Service: ? Author Type: Physician Type: Progress Notes Filed: 12/20/2024 11:19 Note Text: Exam Date Time Procedure Performing Provider Status 12/19/24 9:04 PM US Pelvis Non-OB Complete HIGINIO KIRKPATRICK MD; Auth (Verified) [id number] ORIGINAL EXAMINATION: PELVIC ULTRASOUND 12/19/2024 TECHNIQUE: Transabdominal and transvaginal pelvic duplex ultrasound using B-mode/tijerina scaled imaging, Doppler spectral analysis and color flow Doppler was obtained. COMPARISON: None HISTORY: ORDERING SYSTEM PROVIDED HISTORY: Reason for Exam: pelvic pain FINDINGS: Measurements: Uterus: 9.1 cm x 3.1 cm x 3.2 cm Endometrial stripe: 30.7 mm Right Ovary:3.8 cm x 3.1 cm x 3.2 cm, volume 19.7 mL Left Ovary: 2.9 cm x 1.9 cm x 2.1 cm, volume 6.1 mL Ultrasound Findings: Uterus: Uterus demonstrates normal myometrial echotexture. Endometrial stripe: Endometrial stripe is within normal limits. Right Ovary: Right ovary is within normal limits. There is a complex cystic area measuring 2.3 cm x 2.3 cm x 2.3 cm. There is normal arterial and venous Doppler flow. Left Ovary: Left ovary is within normal limits. There is normal arterial and venous Doppler flow. Free Fluid: Free fluid in the cul-de-sac. IMPRESSION: 1. Complex cystic area in the right ovary and free fluid in the cul-de-sac. Findings would be consistent with a ruptured hemorrhagic cyst. 2. Thickened endometrial stripe measuring 30.7 mm. Correlation with menstrual cycle is recommended. Interpreted by: Higinio Kirkpatrick Preliminary Report By: Higinio Kirkpatrick Electronically signed By Higinio Kirkpatrick Dictated Date: 12/19/2024 9:33:44 PM Prelim Date: 12/19/2024 9:38:30 PM Sign Date: 12/19/2024 9:38:30 PM [facility] 12-20-2024 History of Presen t illness Narrative Exam Date Time Procedure Performing Provider Status 12/19/24 9:04 PM US Pelvis Non-OB Complete HIGINIO KIRKPATRICK MD; Auth (Verified) [id number] ORIGINAL EXAMINATION: PELVIC ULTRASOUND 12/19/2024 TECHNIQUE: Transabdominal and transvaginal pelvic duplex ultrasound using B-mode/tijerina scaled imaging, Doppler spectral analysis and color flow Doppler was obtained. COMPARISON: None HISTORY: ORDERING SYSTEM PROVIDED HISTORY: Reason for Exam: pelvic pain FINDINGS: Measurements: Uterus: 9.1 cm x 3.1 cm x 3.2 cm Endometrial stripe: 30.7 mm Right Ovary:3.8 cm x 3.1 cm x 3.2 cm, volume 19.7 mL Left Ovary: 2.9 cm x 1.9 cm x 2.1 cm, volume 6.1 mL Ultrasound Findings: Uterus: Uterus demonstrates normal myometrial echotexture. Endometrial stripe: Endometrial stripe is within normal limits. Right Ovary: Right ovary is within normal limits. There is a complex cystic area measuring 2.3 cm x 2.3 cm x 2.3 cm. There is normal arterial and venous Doppler flow. Left Ovary: Left ovary is within normal limits. There is normal arterial and venous Doppler flow. Free Fluid: Free fluid in the cul-de-sac. IMPRESSION: 1. Complex cystic area in the right ovary and free fluid in the cul-de-sac. Findings would be consistent with a ruptured hemorrhagic cyst. 2. Thickened endometrial stripe measuring 30.7 mm. Correlation with menstrual cycle is recommended. Interpreted by: Higinio Kirkpatrick Preliminary Report By: Higinio Kirkpatrick Electronically signed By Higinio Kirkpatrick Dictated Date: 12/19/2024 9:33:44 PM Prelim Date: 12/19/2024 9:38:30 PM Sign Date: 12/19/2024 9:38:30 PM Pool Nurse offered: Patient accepts, visit chaperoned by nurse. Catalina Marvin is a 29 year old female who presents for problem visit ER f/u for involution right ovarian cyst,. HPI: Sudden onset of RLQ pain that woke her up 3 days ago. Seen in ER, CT and sono reveals involution ovarian cyst and potential UTI, started on Keflex and given Vicodin, OB History Gravida2 Para1 Term1 Preterm0 AB1 Living1 SAB0 IAB1 Ectopic0 Multiple0 Live Births1 [employer] History LMP: 01/26/2020 (Approximate), Having periods Age at Menarche: Age at First : Age at Menopause: [employer] History Comments: Sexual Activity: Yes; Male Contraception: Not used PAST MEDICAL HISTORY Diagnosis Date Acid reflux Anxiety and depression Attention deficit disorder (ADD) in adult 08/12/2017 Benign neoplasm of skin of face 12/05/2010, 12/20/2012 Chlamydia 2015 Headache disorder IBS (irritable bowel syndrome) Molluscum contagiosum Raynaud disease Scoliosis (and kyphoscoliosis), idiopathic PAST SURGICAL HISTORY Procedure Laterality Date EAR TUBES HX TONSILLECTOMY AND ADENOIDECTOMY HX TOOTH EXTRACTION 2017 wisdom teeth removed FAMILY HISTORY Problem Relation Age of Onset Thyroid Mother Hypertension Mother Psychiatry Mother Breast Cancer Paternal Grandmother 93 Cancer Paternal Grandfather Breast Cancer Maternal Aunt 28 Hyperlipidemia Father other (Zuniga's Esophagus) Father Skin Cancer Maternal Grandfather other (throat cancer) Maternal Grandfather 68 Heart Maternal Aunt murmur Social History Tobacco Use Smoking status: Never Smokeless tobacco: Never Vaping Use Vaping status: Never Used Substance Use Topics Alcohol use: No Comment: social Drug use: Yes Frequency: 3.0 times per week Types: Marijuana Comment: Pt states that she smokes THC 3-4 times a week. Current Outpatient Medications Medication Sig CAMRESE LO 0.10 mg-20 mcg (84)/10 mcg (7) 3MPk Take 1 tablet by mouth once daily. ferrous sulfate 325 mg (65 mg iron) tablet Take 1 tablet by mouth daily with breakfast. VIT/IRON FUM/FOLIC AC ( 05/31 ORAL) Take by mouth once daily. No current facility-administered medications for this visit. Allergies As of Date: 12/20/2024 Allergen Noted Reaction ANCEF [CEFAZOLIN] 11/10/2018 Hives and Itching LACTOSE 08/22/2018 GI Upset RONDEC [BROMPHENIRAMINE-PSEUDOEPH*06/29 Intolerance CARBINOXAMINE 11/07/2018 Unknown PSEUDOEPHEDRINE 11/07/2018 Unknown Fully Assessed 02/02/2020 REVIEW OF SYSTEMS Abdomen: No bloating, early satiety, indigestion, or increased flatulence. No abdominal pain, nausea, vomiting, diarrhea, or constipation. Bladder: No dysuria, gross hematuria, urinary frequency, urinary urgency, or incontinence. Breast: No breast lumps, nipple d/c, overlying skin changes, redness or skin retraction. Expanded ROS: N/A Allergies and current medication updated:Yes SENSITIVE EXAM: The sensitive examination was discussed with the Patient or Patient's Authorized Workforce Planner. As applicable, any other physician, advance practice provider, medical student, or other health professional student that will be observing or involved in the sensitive examination for educational or training purposes was discussed with the Patient or Authorized Workforce Planner. The Patient or Authorized Workforce Planner has agreed to proceed with the sensitive examination. (Sensitive examination includes inspection and/or palpation of the breasts, pelvis, prostate and anorectal regions). EXAM: LMP 01/26/2020 GENERAL: pleasant, female in no apparent distress ABDOMEN: soft, non-tender, and no masses PELVIC: external genitalia normal, normal Bartholin's glands, urethra, Chokio's glands, no vulvar lesions, no cervical lesions, good vaginal support, physiologic discharge present, normal appearing perineal body and perianal region BIMANUAL: uterus normal size, shape and consistency, no adnexal masses, noting mild right adnexal tendernes and slight cx motion tendernes consistent with a ruptured ovarian cyst.: alert and oriented x3,exam grossly non-focal EXTREMITIES: normal ASSESSMENT AND PLAN: Assessment & Plan Ovarian cyst rupture Resolving ovarian cyst UTI NSAIDS F/u for contraception Needs something beyond condoms ftft > 45m rev records with pt and discuss Yosvany Santo MD documented in this encounter [facility] 12-20-2024 Note HNO ID: [id number] Author: YOSVANY SANTO MD Service: ? Author Type: Physician Type: Progress Notes Filed: 12/20/2024 11:19 Note Text: Pool Nurse offered: Patient accepts, visit chaperoned by nurse. Catalina Marvin is a 29 year old female who presents for problem visit ER f/u for involution right ovarian cyst,. HPI: Sudden onset of RLQ pain that woke her up 3 days ago. Seen in ER, CT and sono reveals involution ovarian cyst and potential UTI, started on Keflex and given Vicodin, OB History Gravida2 Para1 Term1 Preterm0 AB1 Living1 SAB0 IAB1 Ectopic0 Multiple0 Live Births1 [employer] History LMP: 01/26/2020 (Approximate), Having periods Age at Menarche: Age at First : Age at Menopause: [employer] History Comments: Sexual Activity: Yes; Male Contraception: Not used PAST MEDICAL HISTORY Diagnosis Date Acid reflux Anxiety and depression Attention deficit disorder (ADD) in adult 08/12/2017 Benign neoplasm of skin of face 12/05/2010, 12/20/2012 Chlamydia 2015 Headache disorder IBS (irritable bowel syndrome) Molluscum contagiosum Raynaud disease Scoliosis (and kyphoscoliosis), idiopathic PAST SURGICAL HISTORY Procedure Laterality Date EAR TUBES HX TONSILLECTOMY AND ADENOIDECTOMY HX TOOTH EXTRACTION 2017 wisdom teeth removed FAMILY HISTORY Problem Relation Age of Onset Thyroid Mother Hypertension Mother Psychiatry Mother Breast Cancer Paternal Grandmother 93 Cancer Paternal Grandfather Breast Cancer Maternal Aunt 28 Hyperlipidemia Father other (Zuniga's Esophagus) Father Skin Cancer Maternal Grandfather other (throat cancer) Maternal Grandfather 68 Heart Maternal Aunt murmur Social History Tobacco Use Smoking status: Never Smokeless tobacco: Never Vaping Use Vaping status: Never Used Substance Use Topics Alcohol use: No Comment: social Drug use: Yes Frequency: 3.0 times per week Types: Marijuana Comment: Pt states that she smokes THC 3-4 times a week. Current Outpatient Medications Medication Sig CAMRESE LO 0.10 mg-20 mcg (84)/10 mcg (7) 3MPk Take 1 tablet by mouth once daily. ferrous sulfate 325 mg (65 mg iron) tablet Take 1 tablet by mouth daily with breakfast. VIT/IRON FUM/FOLIC AC ( 05/31 ORAL) Take by mouth once daily. No current facility-administered medications for this visit. Allergies As of Date: 12/20/2024 Allergen Noted Reaction ANCEF [CEFAZOLIN] 11/10/2018 Hives and Itching LACTOSE 08/22/2018 GI Upset RONDEC [BROMPHENIRAMINE-PSEUDOEPH*06/29 Intolerance CARBINOXAMINE 11/07/2018 Unknown PSEUDOEPHEDRINE 11/07/2018 Unknown Fully Assessed 02/02/2020 REVIEW OF SYSTEMS Abdomen: No bloating, early satiety, indigestion, or increased flatulence. No abdominal pain, nausea, vomiting, diarrhea, or constipation. Bladder: No dysuria, gross hematuria, urinary frequency, urinary urgency, or incontinence. Breast: No breast lumps, nipple d/c, overlying skin changes, redness or skin retraction. Expanded ROS: N/A Allergies and current medication updated:Yes SENSITIVE EXAM: The sensitive examination was discussed with the Patient or Patient's Authorized Workforce Planner. As applicable, any other physician, advance practice provider, medical student, or other health professional student that will be observing or involved in the sensitive examination for educational or training purposes was discussed with the Patient or Authorized Workforce Planner. The Patient or Authorized Workforce Planner has agreed to proceed with the sensitive examination. (Sensitive examination includes inspection and/or palpation of the breasts, pelvis, prostate and anorectal regions). EXAM: LMP 01/26/2020 GENERAL: pleasant, female in no apparent distress ABDOMEN: soft, non-tender, and no masses PELVIC: external genitalia normal, normal Bartholin's glands, urethra, Chokio's glands, no vulvar lesions, no cervical lesions, good vaginal support, physiologic discharge present, normal appearing perineal body and perianal region BIMANUAL: uterus normal size, shape and consistency, no adnexal masses, noting mild right adnexal tendernes and slight cx motion tendernes consistent with a ruptured ovarian cyst.: alert and oriented x3,exam grossly non-focal EXTREMITIES: normal ASSESSMENT AND PLAN: Assessment AND Plan Ovarian cyst rupture Resolving ovarian cyst UTI NSAIDS F/u for contraception Needs something beyond condoms ftft > 45m rev records with pt and discuss Yosvany Santo MD [facility] 12-19-2024 Hospital Discharg e instructions Patient Education 12/19/2024 21:55:31 Bladder Infection, Female (Adult) Bladder Infection, Female (Adult) Urine is normally doesn't have any bacteria in it. But bacteria can get into the urinary tract from the skin around the rectum. Or they can travel in the blood from elsewhere in the body. Once they are in your urinary tract, they can cause infection in the urethra (urethritis), the bladder (cystitis), or the kidneys (pyelonephritis). The most common place for an infection is in the bladder. This is called a bladder infection. This is one of the most common infections in women. Most bladder infections are easily treated. They are not serious unless the infection spreads to the kidney. The phrases bladder infection, UTI, and cystitis are often used to describe the same thing. But they are not always the same. Cystitis is an inflammation of the bladder. The most common cause of cystitis is an infection. Symptoms The infection causes inflammation in the urethra and bladder. This causes many of the symptoms. The most common symptoms of a bladder infection are: Pain or burning when urinating Having to urinate more often than usual Urgent need to urinate Only a small amount of urine comes out Blood in urine Abdominal discomfort. This is usually in the lower abdomen above the pubic bone. Cloudy urine Strong- or bad-smelling urine Unable to urinate (urinary retention) Unable to hold urine in (urinary incontinence) Fever Loss of appetite Confusion (in older adults) Causes Bladder infections are not contagious. You can't get one from someone else, from a toilet seat, or from sharing a bath. The most common cause of bladder infections is bacteria from the bowels. The bacteria get onto the skin around the opening of the urethra. From there, they can get into the urine and travel up to the bladder, causing inflammation and infection. This usually happens because of: Wiping improperly after urinating. Always wipe from front to back. Bowel incontinence Procedures such as having a catheter inserted Older age Not emptying your bladder. This can allow bacteria a chance to grow in your urine. Dehydration Constipation Sex Use of a diaphragm for control Treatment Bladder infections are diagnosed by a urine test. They are treated with antibiotics and usually clear up quickly without complications. Treatment helps prevent a more serious kidney infection. Medicines Medicines can help in the treatment of a bladder infection: Take antibiotics until they are used up, even if you feel better. It is important to finish them to make sure the infection has cleared. You can use acetaminophen or ibuprofen for pain, fever, or discomfort, unless another medicine was prescribed. If you have chronic liver or kidney disease, talk with your healthcare provider before using these medicines. Also talk with your provider if you've ever had a stomach ulcer or gastrointestinal bleeding, or are taking blood-thinner medicines. If you are given phenazopydridine to reduce burning with urination, it will cause your urine to become a bright orange color. This can stain clothing. Care and prevention These self-care steps can help prevent future infections: Drink plenty of fluids to prevent dehydration and flush out your bladder. Do this unless you must restrict fluids for other health reasons, or your doctor told you not to. Proper cleaning after going to the bathroom is important. Wipe from front to back after using the toilet to prevent the spread of bacteria. Urinate more often. Don't try to hold urine in for a long time. Wear loose-fitting clothes and cotton underwear. Avoid tight-fitting pants. Improve your diet and prevent constipation. Eat more fresh fruit and vegetables, and fiber, and less junk and fatty foods. Avoid sex until your symptoms are gone. Avoid caffeine, alcohol, and spicy foods. These can irritate your bladder. Urinate right after intercourse to flush out your bladder. If you use control pills and have frequent bladder infections, discuss it with your doctor. Follow-up care Call your healthcare provider if all symptoms are not gone after 3 days of treatment. This is especially important if you have repeat infections. If a culture was done, you will be told if your treatment needs to be changed. If directed, you can call to find out the results. If X-rays were done, you will be told if the results will affect your treatment. Call 911 Call 911 if any of the following occur: Trouble breathing Hard to wake up or confusion Fainting or loss of consciousness Rapid heart rate When to seek medical advice Call your healthcare provider right away if any of these occur: Fever of 100.4 F (38.0 C) or higher, or as directed by your healthcare provider Symptoms are not better by the third day of treatment Back or belly (abdominal) pain that gets worse Repeated vomiting, or unable to keep medicine down Weakness or dizziness Vaginal discharge Pain, redness, or swelling in the outer vaginal area (labia) 4357-1906 [employer] [address] [place] [address]. All rights reserved. This information is not intended as a substitute for professional medical care. Always follow your healthcare professional's instructions. 12/19/2024 21:55:24 Ovarian Cyst Ovarian Cysts The ovaries are two small organs located on each side of a woman s uterus (womb). They are part of the female reproductive system. Ovarian cysts are sacs filled with fluid or tissue that form on or inside the ovaries. Ovarian cysts are common in women, especially during childbearing years. There are different types of cysts. Most are harmless (benign) and go away on their own. They often cause no symptoms. If symptoms do occur, they can include mild pain or pressure in the lower belly (abdomen). Cysts that are large or break (rupture) may cause more severe pain and symptoms. In these cases, you may need hospital care or treatment such as surgery. You may need more extensive treatment if a cyst causes an ovary to twist (called torsion) or if your doctor suspects your cyst is cancerous. Keep in mind that most cysts are not cancerous, however. General care To help relieve pain, your healthcare provider may recommend using [id number] pain medicine. If needed, your provide may prescribe stronger pain medicine. Depending on the type of cyst you have, your healthcare provider may advise taking control pills. These help shrink cysts in certain cases. They may also help prevent new cysts from forming. Be sure to take these medicines as directed if they are prescribed. Your healthcare provider may advise you to watch your symptoms over time to see if they go away or worsen. Regular ultrasound tests may also be advised. These can help check if a cyst goes away or grows in size. Follow-up care Follow up with your healthcare provider, or as advised. When to seek medical advice Call your healthcare provider right away if any of these occur: Pain worsens or fails to get better with home treatment Fever of 100.4 F (38 C) or higher (or other fever amount directed by your healthcare provider) Nausea and vomiting Weakness, dizziness, or fainting Abnormal vaginal bleeding [id number] [employer] [address] [place] [id number]. All rights reserved. This information is not intended as a substitute for professional medical care. Always follow your healthcare professional's instructions. Follow Up Care 12/19/2024 19:08:33 With:Keep your appointment as scheduled with [facility] for tomorrow. Address:Unknown When:2-4 days Comments:Return to ED if symptoms worsen With:Call LAVONNE Elam Pt. Refferral [phone] Address:Unknown When:2-4 days [facility] 12-19-2024 Emergency department Discharge summary Discharge Instructions Thank you for allowing [facility] to assist you with your healthcare needs. The following is important discharge information regarding your hospital visit. Diagnosis from Today's Visit Hemorrhagic cyst of ovary Urinary tract infection What to Do Next Instructions from Your Care Team No qualifying data available. Post Acute Orders No qualifying data available. You Need to Schedule the Following Appointments Follow Up with Keep your appointment as scheduled with [facility] for tomorrow. When:Within 2-4 days Additional Information: Return to ED if symptoms worsen Follow Up with Call LAVONNE Elam Pt. Refferral [phone] When:Within 2-4 days Allergies Rondec Medications Please ask your primary doctor or pharmacist before taking any other medication not listed, including over the counter drugs, herbal medications, vitamins and or supplements as they may interact with your home medications. What How Much When Why Instructions Last Dose New acetaminophen-oxyCODONE (Percocet 5 mg-325 mg oral tablet) 1 tab(s) by mouth Every 6 hours as needed for for pain Hemorrhagic cyst of ovary Duration: 3 Days Printed Prescription New cephalexin (cephalexin 500 mg oral capsule) 1 cap by mouth Every 12 hours Duration: 5 Days Printed Prescription Unchanged aspirin (aspirin 81 mg oral delayed release tablet) 1 tab(s) by mouth Every day Unchanged ferrous sulfate (ferrous sulfate 325 mg (65 mg elemental iron) oral tablet) Unchanged ibuprofen (ibuprofen 600 mg oral tablet) Unchanged Misc Medication (ACETAMINOPHEN 500 MG TABLET) Unchanged multivitamin, ( Multivitamins) 1 tab(s) by mouth Once a day Unchanged NIFEdipine (NIFEdipine (Eqv-Procardia XL) 30 mg oral tablet, extended release) 1 tab(s) by mouth Once a day Unchanged omeprazole (PriLOSEC OTC 20 mg oral delayed release tablet) 3 tab(s) by mouth Two (2) times a day Unchanged promethazine (promethazine 12.5 mg rectal suppository) 1 suppository(ies) in the rectum Every 6 hours as needed for as needed for nausea/vomiting Nausea and vomiting Acute pelvic pain Duration: 5 Days Please take this list to your next doctor s visit. Bring all medications you take, including over the counter medications, herbals and other supplements with you to your doctor s visit. Patients and families are reminded to discard old lists and to update any records with all medication providers or retail pharmacies. Education Materials Bladder Infection, Female (Adult) Urine is normally doesn't have any bacteria in it. But bacteria can get into the urinary tract from the skin around the rectum. Or they can travel in the blood from elsewhere in the body. Once they are in your urinary tract, they can cause infection in the urethra (urethritis), the bladder (cystitis), or the kidneys (pyelonephritis). The most common place for an infection is in the bladder. This is called a bladder infection. This is one of the most common infections in women. Most bladder infections are easily treated. They are not serious unless the infection spreads to the kidney. The phrases bladder infection, UTI, and cystitis are often used to describe the same thing. But they are not always the same. Cystitis is an inflammation of the bladder. The most common cause of cystitis is an infection. Symptoms The infection causes inflammation in the urethra and bladder. This causes many of the symptoms. The most common symptoms of a bladder infection are: Pain or burning when urinating Having to urinate more often than usual Urgent need to urinate Only a small amount of urine comes out Blood in urine Abdominal discomfort. This is usually in the lower abdomen above the pubic bone. Cloudy urine Strong- or bad-smelling urine Unable to urinate (urinary retention) Unable to hold urine in (urinary incontinence) Fever Loss of appetite Confusion (in older adults) Causes Bladder infections are not contagious. You can't get one from someone else, from a toilet seat, or from sharing a bath. The most common cause of bladder infections is bacteria from the bowels. The bacteria get onto the skin around the opening of the urethra. From there, they can get into the urine and travel up to the bladder, causing inflammation and infection. This usually happens because of: Wiping improperly after urinating. Always wipe from front to back. Bowel incontinence Procedures such as having a catheter inserted Older age Not emptying your bladder. This can allow bacteria a chance to grow in your urine. Dehydration Constipation Sex Use of a diaphragm for control Treatment Bladder infections are diagnosed by a urine test. They are treated with antibiotics and usually clear up quickly without complications. Treatment helps prevent a more serious kidney infection. Medicines Medicines can help in the treatment of a bladder infection: Take antibiotics until they are used up, even if you feel better. It is important to finish them to make sure the infection has cleared. You can use acetaminophen or ibuprofen for pain, fever, or discomfort, unless another medicine was prescribed. If you have chronic liver or kidney disease, talk with your healthcare provider before using these medicines. Also talk with your provider if you've ever had a stomach ulcer or gastrointestinal bleeding, or are taking blood-thinner medicines. If you are given phenazopydridine to reduce burning with urination, it will cause your urine to become a bright orange color. This can stain clothing. Care and prevention These self-care steps can help prevent future infections: Drink plenty of fluids to prevent dehydration and flush out your bladder. Do this unless you must restrict fluids for other health reasons, or your doctor told you not to. Proper cleaning after going to the bathroom is important. Wipe from front to back after using the toilet to prevent the spread of bacteria. Urinate more often. Don't try to hold urine in for a long time. Wear loose-fitting clothes and cotton underwear. Avoid tight-fitting pants. Improve your diet and prevent constipation. Eat more fresh fruit and vegetables, and fiber, and less junk and fatty foods. Avoid sex until your symptoms are gone. Avoid caffeine, alcohol, and spicy foods. These can irritate your bladder. Urinate right after intercourse to flush out your bladder. If you use control pills and have frequent bladder infections, discuss it with your doctor. Follow-up care Call your healthcare provider if all symptoms are not gone after 3 days of treatment. This is especially important if you have repeat infections. If a culture was done, you will be told if your treatment needs to be changed. If directed, you can call to find out the results. If X-rays were done, you will be told if the results will affect your treatment. Call 911 Call 911 if any of the following occur: Trouble breathing Hard to wake up or confusion Fainting or loss of consciousness Rapid heart rate When to seek medical advice Call your healthcare provider right away if any of these occur: Fever of 100.4 F (38.0 C) or higher, or as directed by your healthcare provider Symptoms are not better by the third day of treatment Back or belly (abdominal) pain that gets worse Repeated vomiting, or unable to keep medicine down Weakness or dizziness Vaginal discharge Pain, redness, or swelling in the outer vaginal area (labia) [id number] [employer] [address] [place] [address]. All rights reserved. This information is not intended as a substitute for professional medical care. Always follow your healthcare professional's instructions. Ovarian Cysts The ovaries are two small organs located on each side of a woman s uterus (womb). They are part of the female reproductive system. Ovarian cysts are sacs filled with fluid or tissue that form on or inside the ovaries. Ovarian cysts are common in women, especially during childbearing years. There are different types of cysts. Most are harmless (benign) and go away on their own. They often cause no symptoms. If symptoms do occur, they can include mild pain or pressure in the lower belly (abdomen). Cysts that are large or break (rupture) may cause more severe pain and symptoms. In these cases, you may need hospital care or treatment such as surgery. You may need more extensive treatment if a cyst causes an ovary to twist (called torsion) or if your doctor suspects your cyst is cancerous. Keep in mind that most cysts are not cancerous, however. General care To help relieve pain, your healthcare provider may recommend using [id number] pain medicine. If needed, your provide may prescribe stronger pain medicine. Depending on the type of cyst you have, your healthcare provider may advise taking control pills. These help shrink cysts in certain cases. They may also help prevent new cysts from forming. Be sure to take these medicines as directed if they are prescribed. Your healthcare provider may advise you to watch your symptoms over time to see if they go away or worsen. Regular ultrasound tests may also be advised. These can help check if a cyst goes away or grows in size. Follow-up care Follow up with your healthcare provider, or as advised. When to seek medical advice Call your healthcare provider right away if any of these occur: Pain worsens or fails to get better with home treatment Fever of 100.4 F (38 C) or higher (or other fever amount directed by your healthcare provider) Nausea and vomiting Weakness, dizziness, or fainting Abnormal vaginal bleeding [phone] [employer] [address] [place] [address]. All rights reserved. This information is not intended as a substitute for professional medical care. Always follow your healthcare professional's instructions. Additional Information VACCINATE! IT SAVES LIVES! Members of the community who have not yet received the COVID-19 vaccine and would like to receive it can visit one of [facility] vaccine clinics. There are many vaccine clinic locations within the [facility]. For locations and available times, please visit [email or web address] It is important to note that some COVID mobile vaccine clinics are held outdoors and may be canceled in rainy or stormy conditions. To learn more about pediatric vaccinations (ages 5-11), we invite you to visit the [facility] webpage. [email or web address] To learn more about the COVID-19 vaccine, we invite you to visit the CDC website for a list of frequently asked questions. https://www.cdc.gov/coronavirus/ 2019-ncov/vaccines/faq.html [facility] Patient Portal Access Instructions: Stay connected with your healthcare team and access your personal medical information anytime with the [facility] Patient Portal. If you would like a full copy of your medical records please contact the [facility] Medical Records Department Wednesday through Wednesday between 8a.m. and 4:30p.m. Please follow the directions below to access the portal: 1.Access the email account you provided upon registration to the [facility].2.Look for an invitation email from [facility].3.Open the email and access the invitation link: Accept Invitation to [facility].Fill in the required thompson to create your account. Sign into [email or web address] with your username and password that you [...] you will allow to register on the [facility] Patient Portal for access to your information. You can also access the [facility] Patient Portal on the [employer] adin. Simply click on Health Records under Health Data and then click on the [facility] logo. HOW TO SAFELY DISPOSE OF PRESCRIPTION [...] Call your local pharmacy or go to [email or web address] to find one close to you.3.Make use of household items: Use cat litter or old coffee grounds to dispose medications if other options are not available. Mix your drugs with these household products, seal them in an airtight container and throw it into the garbage. Call [facility]: [phone] to be sure your drugs can be [...] a CHART COPY Signatures Patient Education Materials Bladder Infection, Female (Adult) Ovarian Cyst Medication Leaflets My discharge plan and instructions have been reviewed and explained to me and I,CATALINA MARVIN understand my current condition and have read and understand these discharge instructions. I have received a written copy of the plan/instructions. If I have questions, I am aware that I should contact my doctor. 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 COMPARISON: None HISTORY: ORDERING SYSTEM PROVIDED HISTORY: Reason for Exam: pelvic pain FINDINGS: Measurements: Uterus: 9.1 cm x 3.1 cm x 3.2 cm Endometrial stripe: 30.7 mm Right Ovary:3.8 cm x 3.1 cm x 3.2 cm, volume 19.7 mL Left Ovary: 2.9 cm x 1.9 cm x 2.1 cm, volume 6.1 mL Ultrasound Findings: Uterus: Uterus demonstrates normal myometrial echotexture. Endometrial stripe: Endometrial stripe is within normal limits. Right Ovary: Right ovary is within normal limits. There is a complex cystic area measuring 2.3 cm x 2.3 cm x 2.3 cm. There is normal arterial and venous Doppler flow. Left Ovary: Left ovary is within normal limits. There is normal arterial and venous Doppler flow. Free Fluid: Free fluid in the cul-de-sac. IMPRESSION: 1. Complex cystic area in the right ovary and free fluid in the cul-de-sac. Findings would be consistent with a ruptured hemorrhagic cyst. 2. Thickened endometrial stripe measuring 30.7 mm. Correlation with menstrual cycle is recommended. Interpreted by: Higinio Kirkpatrick Preliminary Report By: Higinio Kirkpatrick Electronically signed By Higinio Kirkpatrick Dictated Date: 12/19/2024 9:33:44 PM Prelim Date: 12/19/2024 9:38:30 PM Sign Date: 12/19/2024 9:38:30 PM Ordering Provider: JUAN M GARCIA [facility]07-22-2025 Evaluation + Plan note Diagnostic Tests Pending * Chlamydia trachomatis, Endocervical PCR 12/19/24 * Neisseria gonorrhoeae, Endocervical PCR 12/19/24 [facility] 07-20-2025 Discharge summary [facility] Medical Records Department [address] [place] [id number] Emergency Department Summary 12/17/24 MR#: [id number] Acct: [id number] Name: CATALINA MARVIN Rep #:[id number] : 1995 29 From: Emelina Howard DO PCP: Care Physician,No Primary Status :REG ER Location: ED HPI History of Present Illness Chief Complaint: Syncope Detail of Chief Complaint: Abdominal pain and syncopal episode Informant: patient Narrative Narrative: Patient presents to the emergency department complaint of abdominal pain had started this morning around 9 AM when she first woke up. Patient took some Pepto-Bismol but really did not have relief with that. Pain then progressed, tothe left side of her abdomen and into her back. On the way to the hospital she was in the car and had a syncopal episode that lasted about 2 minutes. She denies any chest pain or shortness of breath. Feels chilled. She denies urinary symptoms. Her last menstrual period was a week ago. [facility] Medical History (Updated 12/17/24 @ 23:[address] Emelina Howard, DO) Raynaud's disease Home Medications ?Medication ?Instructions ?Recorded ?Last Taken ?Type hydrocodone-acetaminophen 5-325mg 1 tab PO Q4H PRN PRN Pain 2 days 12/17/24 Unknown Rx 5mg-325mg #10 TABLETS Allergy/AdvReac Type Severity Reaction Status Date / Time carbinoxamine (From [facility]) Allergy Intermediate Hives Verified 12/17/24 19:23 pseudoephedrine (From [facility]) Allergy Intermediate Hives Verified 12/17/24 19:23 Surgical History (Updated 12/17/24 @ 19:36 by Kezia Sylvester) Hx of tonsillectomy Byers teeth extracted Social History (Updated 11/02/20 @ 07:[address] 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 details: Does not use IV drugs ROS ROS ED Review of Systems ROS Unobtainable: other Constitutional Constitutional ED: Reports chills and lethargy; Denies fever(s), sweats or weight loss Eyes Eyes: Denies blurry vision, change in vision or diplopia ENT ENT ED: Denies rhinorrhea or sore throat Cardiovascular Cardiovascular: Denies chest pain, orthopnea or racing heartbeat Respiratory/Chest Respiratory/Chest: Denies cough, dyspnea, dyspnea on exertion, orthopnea or sputum Gastrointestinal Gastrointestinal: Reports abdominal pain; Denies diarrhea, nausea or vomiting Genitourinary Genitourinary ED: Denies dysuria, hematuria or urinary frequency Musculoskeletal Musculoskeletal: Reports back pain; Denies arthralgias, myalgias or neck pain Integumentary Denies abscess, Abrasions or rash Neurologic Neurologic: Reports other Details: Syncope ; Denies headache(s) or weakness Psychiatric Psychiatric: Denies anxiety, depression or suicidal thoughts Endocrine Endocrinology: Denies polydipsia, polyphagia or polyuria Hematologic/Lymphatic Hematologic/Lymphatic: Denies easy bleeding, easy bruising or lymphadenopathy Allergic/Immunologic Allergic/Immunologic ED: Denies mouth swelling, tongue swelling or urticaria EXAM Physical Exam Const Vital Signs: 12/17/24 18:59 12/17/24 19:23 12/17/24 19:33 Temperature 97.2 F L Temperature Source Temporal Pulse Rate 112 H 92 Respiratory Rate 16 16 Respiratory Effort Normal Respiratory Pattern Normal Blood Pressure 115/78 126/66 H Blood Pressure Mean 90 86 Pulse Ox 100 100 Oxygen Delivery Method Room Air Room Air 12/17/24 20:00 12/17/24 21:17 12/17/24 22:00 Temperature Temperature Source Pulse Rate 98 91 Respiratory Rate 14 18 Respiratory Effort Respiratory Pattern Blood Pressure 112/56 L 115/77 117/77 Blood Pressure Mean 74 89 90 Pulse Ox 99 99 96 Oxygen Delivery Method Room Air 12/17/24 23:00 Temperature Temperature Source Pulse Rate 94 Respiratory Rate 18 Respiratory Effort Respiratory Pattern Blood Pressure 105/66 Blood Pressure Mean 79 Pulse Ox 98 Oxygen Delivery Method Positive well nourished and well developed General Appearance ED: well developed and NAD HEENT Reports TM's clear and moist mucous membranes normocephalic and atraumatic; Negative for trauma or tenderness Tympanic Membrane ED: Yes TM's clear Eyes PERRL and EOMs intact bilaterally General Eye ED: Negative for pale conjunctiva or scleral icterus Neck no lymphadenopathy, supple and no JVD General: Negative for tenderness Chest Wall inspection of chest normal and palpation of chest normal Chest: Negative for tenderness Resp normal respiratory effort and clear to auscultation bilaterally Effort and Inspection: Negative for respiratory distress or pain with movement Auscultation: Negative for rhonchi, wheezes or diminished lung sounds Cardio regular rate, regular rhythm, S1 normal heart sound, S2 normal heart sound and no murmurs Peripheral Pulses: pulses 2+ throughout GI normal to inspection, nondistended, normoactive bowel sounds, soft to palpation,non-distended and no masses GI Narrative: Mild tenderness palpation over the left upper quadrant and left lower quadrant with mild guarding. There is no rebound, rigidity, or purulent signs. Mild CVAtenderness on the left. Back/Spine no thoracic nor lumbar tenderness; Negative for no CVA tenderness Back/Spine Narrative: Mild CVA tenderness on the left. Extremity normal to inspection General Extremety ED: Negative for edema General Extremity: Negative for edema Neuro oriented x3, CN's II-XII intact bilaterally, no sensory deficits noted and gait normal Sensorium / Orientation: awake, alert, oriented to person, oriented to place andoriented to time Motor Exam: strength 5/5 throughout and strength abnormal Psych mental status grossly normal Skin no rashes or lesions noted and no wounds MDM MDM MDM Narrative Medical decision making narrative: Patient presents to the emergency department with abdominal pain since this morning initially was epigastric now more left-sided lower abdomen. Diffuse tenderness to palpation over suprapubic region as well as left lower quadrant. There is no rebound or rigidity. IV line established. She was medicated with Toradol as well as Dilaudid and Zofran and had good pain relief with that. CBC with her shows a white count of 8.6 with hemoglobin 12 and platelet count of 225. Chemistries unremarkable. Lactate less than 1. Urinalysis negative for infection. hCG was negative. CT scan of the abdomen pelvis read by radiology as recent right ovarian cyst rupture with pelvic fluid. 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 Distal enteritis such as secondary to infection advise correlation. Patient has not had any diarrheal type illness. This point I did discuss case with [employer] on-call Dr. Christianson who would be happy to follow patientup in the office. No treatment indicated at this time for pelvic congestionsyndrome. Patient will be given a prescription for a few Mendon for pain. Advised return if worsening pain, fever, vomiting, or condition should worsen anyway. I suspect the syncopal episode was likely vagally mediated related to pain. EKG obtained arrival showed a sinus rhythm with rate of 105 bpm with no acute ST segment changes Lab Data Attestation: I reviewed the patient's lab results. Labs: Laboratory Results - last 24 hr 12/17/24 12/17/24 12/17/24 19:26 19:26 19:42 WBC Cancelled Corrected WBC Cancelled RBC Cancelled Hgb Cancelled Hct Cancelled MCV Cancelled MCH Cancelled MCHC Cancelled RDW Std Deviation Cancelled RDW Coeff of Conrado Cancelled Plt Count Cancelled MPV Cancelled Immature Gran % (Auto) Cancelled Neut % (Auto) Cancelled Lymph % (Auto) Cancelled Hand % (Auto) Cancelled Eos % (Auto) Cancelled Baso % (Auto) Cancelled Absolute Neuts (auto) Cancelled Absolute Lymphs (auto) Cancelled Total Counted Cancelled Neutrophils % (Manual) Cancelled Band Neutrophils % Cancelled Lymphocytes % (Manual) Cancelled Monocytes % (Manual) Cancelled Eosinophils % (Manual) Cancelled Basophils % (Manual) Cancelled Metamyelocytes % Cancelled Myelocytes % Cancelled Promyelocytes % Cancelled Blast Cells % Cancelled Plasma Cell % (Manual) Cancelled Other Cells % Cancelled Nucleated RBC % Cancelled Nucleated RBCs/100 WBC Cancelled Differential Comment Cancelled Diff Path Review Cancelled Hypersegmented Neuts Cancelled Atypical Lymphocytes Cancelled Reactive Lymphocytes Cancelled Smudge Cells Cancelled Toxic Granulation Cancelled Toxic Vacuolation Cancelled Dohle Bodies Cancelled Lindsay Rods Cancelled Platelet Estimate Cancelled Plt Morphology Comment Cancelled RBC Morphology Cancelled Cancelled Polychromasia Cancelled Hypochromasia Cancelled Basophilic Stippling Cancelled Anisocytosis Cancelled Microcytosis Cancelled Macrocytosis Cancelled Spherocytes Cancelled Sickle Cells Cancelled Target Cells Cancelled Tear Drop Cells Cancelled Ovalocytes Cancelled Stomatocytes Cancelled [place] Bodies Cancelled Sheeba Cells Cancelled Bite Cells Cancelled Crenated Cell Cancelled Acanthocytes (Spur) Cancelled Rouleaux Cancelled Schistocytes Cancelled Sodium 134 Potassium 4.3 Chloride 102 Carbon Dioxide 17.5 L Anion Gap 15 BUN 8 Creatinine 0.63 L Estim Creat Clear Calc 120.70 Est GFR (MDRD) Non-Af 125 BUN/Creatinine Ratio 12.7 Glucose 94 Lactic Acid < 1.0 Calcium 9.7 Total Bilirubin 0.38 AST 24 ALT 9 Alkaline Phosphatase 71 Total Protein 7.0 Albumin 4.3 Globulin 2.7 Albumin/Globulin Ratio 1.6 Lipase 17 Serum , Qual NEGATIVE Urine Color Yellow Urine Clarity Sl. Cloudy Urine pH 6.5 Ur Specific Crosby 1.010 Urine Protein 15 H Urine Glucose (UA) Normal Urine Ketones 15 H Urine Occult Blood Negative Urine Nitrite Negative Urine Bilirubin Negative Urine Urobilinogen Normal Ur Leukocyte Esterase 100 H Urine RBC 0-5 SEEN Urine WBC 5-10 SEEN Ur Squamous Epith Cells 25-50 SEEN Ur Transition Epith Cell 0-5 SEEN Urine Bacteria 2+ Urine Mucus 0 SEEN 12/17/24 20:51 WBC 8.6 Corrected WBC RBC 4.06 L Hgb 12.2 Hct 35.6 L MCV 87.7 MCH 30.0 MCHC 34.3 RDW Std Deviation 40.3 RDW Coeff of Conrado 12.4 Plt Count 225 MPV 9.2 Immature Gran % (Auto) 0.300 Neut % (Auto) 84.6 H Lymph % (Auto) 10.0 L Hand % (Auto) 4.9 Eos % (Auto) 0.0 Baso % (Auto) 0.2 Absolute Neuts (auto) 7.3 Absolute Lymphs (auto) 0.86 Total Counted Neutrophils % (Manual) Band Neutrophils % Lymphocytes % (Manual) Monocytes % (Manual) Eosinophils % (Manual) Basophils % (Manual) Metamyelocytes % Myelocytes % Promyelocytes % Blast Cells % Plasma Cell % (Manual) Other Cells % Nucleated RBC % 0 Nucleated RBCs/100 WBC Differential Comment Diff Path Review Hypersegmented Neuts Atypical Lymphocytes Reactive Lymphocytes Smudge Cells Toxic Granulation Toxic Vacuolation Dohle Bodies Lindsay Rods Platelet Estimate Plt Morphology Comment RBC Morphology Polychromasia Hypochromasia Basophilic Stippling Anisocytosis Microcytosis Macrocytosis Spherocytes Sickle Cells Target Cells Tear Drop Cells Ovalocytes Stomatocytes [place] Bodies [place]apleton Cells Bite Cells Crenated Cell Acanthocytes (Spur) Rouleaux Schistocytes Sodium Potassium Chloride Carbon Dioxide Anion Gap BUN Creatinine Estim Creat Clear Calc Est GFR (MDRD) Non-Af BUN/Creatinine Ratio Glucose Lactic Acid Calcium Total Bilirubin AST ALT Alkaline Phosphatase Total Protein Albumin Globulin Albumin/Globulin Ratio Lipase Serum , Qual Urine Color Urine Clarity Urine pH Ur Specific Crosby Urine Protein Urine Glucose (UA) Urine Ketones Urine Occult Blood Urine Nitrite Urine Bilirubin Urine Urobilinogen Ur Leukocyte Esterase Urine RBC Urine WBC Ur Squamous Epith Cells Ur Transition Epith Cell Urine Bacteria Urine Mucus Radiography Diagnostic Testing: Clinical Impression(s) from Imaging Studies Abdomen/Pelvis CT 12/17/24 19:14 IMPRESSION: Recent right ovarian cyst rupture with pelvic fluid, this can be a cause of pain. 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 Distal enteritis such as secondary to infection. Advise correlation. Reading Location: [place] [address] EKG Initial EKG: Attestation: I personally reviewed and interpreted this EKG as follows: Comments: Sinus tachycardia with ventricular rate of 105 bpm with no acuteST segment changes Discharge Plan Triage Chief Complaint: Syncope Other Complaint: Back ED Provider: Emelina Howard Dx/Rx/DC Orders Clinical Impression: Abdominal pain, Ovarian cyst Instructions: ED Abdominal Pain Unkn Cause Fem, ED Ovarian Cyst, ED Fainting, Vagal Reaction Prescriptions: New hydrocodone-acetaminophen 5-325 mg tablet 1 tab PO Q4H PRN PRN (Reason: Pain) 2 Days Qty: 10 0RF Primary Care Provider: Care Physician,No Primary Referrals: Anahi Christianson MD [Med Staff - Active Staff] - 3-5 Days Care Physician,No Primary [Primary Care Provider] - Print Language: Citizen Of [place] Disposition Disposition: Home, Self Care What to do if you have Problems For any increased pain, shortness of breath, bleeding, nausea or vomiting, chestpain, or any unexpected problems, contact your Primary Care Provider. Call [facility] ([phone]) or report tothe closest Emergency Room. Call 911 if necessary. 12/17/24 2316 Cosigner Signature (if applicable): CC: No Primary Care Physician ~ Signed [facility]07-20-2025 Radiology Diagnostic study note [facility] Imaging Services [address] [place], [place] [address] Abdomen/Pelvis W IV Cont ONLY MR#: [id number] Acct: [id number] Name: CATALINA MARVIN Rep #: [id number] : 1995 F 29 From: Yaneli Guallpa MD PCP: Care Physician,No Primary Status: REG ER Study:Abdomen/Pelvis W IV Cont ONLY Date of E xam: 12/17/24 Exam# [id number] Ordering Dr: Chyna Howard DO PROCEDURE: ABDOMEN/PELVIS W IV CONT ONLY 12/17/2024 REASON FOR EXAM: ABDOMINAL PAIN TECHNIQUE: ABDOMEN/PELVIS W IV CONT ONLY Coronal and Sagittal reconstruction series were provided. CONTRAST: Isovue 370 VOLUME: 88 mL One or more dose reduction techniques were used (e.g., Automated exposure control, adjustment of the mA and/or kV according to patient size, use of iterative reconstruction technique. RADIATION DOSE SUMMARY: CTDlvol: 17 mGy DLP: 345 mGycm COMPARISON: No FINDINGS: Clear lung bases. Normal heart size. Unremarkable liver, gallbladder, pancreas, spleen, adrenal glands, kidneys. No hydronephrosis or ureteral stone. Normal bladder. Normal uterus and left ovary. Involuting right ovarian cyst. Small pelvic free fluid. No retroperitoneal or pelvic adenopathy. Distended pelvic veins, correlate for pelvic congestion syndrome. No free air. Nondistended bowel. Multiple distal small bowel loops show wall thickening, possible enteritis. No acute large bowel findings. No signs of appendicitis. No acute abdominal wall findings. CT/Abdomen/Pelvis W IV Cont ONLY IMPRESSION: Recent right ovarian cyst rupture with pelvic fluid, this can be a cause of pain. 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 Distal enteritis such as secondary to infection. Advise correlation. Reading Location: [place] [address] CC: Dr. 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: Signed [facility]07-20-2025 Discharge summary Author Emelina Howard [facility] Note Date/Time December 17, 2024 11:1 6pm [facility] Medical Records Department [address] [place] [address] Emergency Department Summary 12/17/24 MR#: [id number] Acct: [id number] Name: CATALINA MARVIN Rep #:[id number] : 1995 29 From: Emelina Howard DO PCP: Care Physician,No Primary Status :REG ER Location: ED HPI History of Present Illness Chief Complaint: Syncope Detail of Chief Complaint: Abdominal pain and syncopal episode Informant: patient Narrative Narrative: Patient presents to the emergency department complaint of abdominal pain had started this morning around 9 AM when she first woke up. Patient took some Pepto-Bismol but really did not have relief with that. Pain then progressed, tothe left side of her abdomen and into her back. On the way to the hospital she was in the car and had a syncopal episode that lasted about 2 minutes. She denies any chest pain or shortness of breath. Feels chilled. She denies urinary symptoms. Her last menstrual period was a week ago. [facility] Medical History (Updated 12/17/24 @ 23:[address] Emelina Howard DO) Raynaud's disease Home Medications ?Medication ?Instructions ?Recorded ?Last Taken ?Type hydrocodone-acetaminophen 5-325mg 1 tab PO Q4H PRN PRN Pain 2 days 12/17/24 Unknown Rx 5mg-325mg #10 TABLETS Allergy/AdvReac Type Severity Reaction Status Date / Time carbinoxamine (From [facility]) Allergy Intermediate Hives Verified 12/17/24 19:23 pseudoephedrine (From [facility]) Allergy Intermediate Hives Verified 12/17/24 19:23 Surgical History (Updated 12/17/24 @ 19:36 by Kezia Sylvester) Hx of tonsillectomy Byers teeth extracted Social History (Updated 11/02/20 @ 07:[address] 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 details: Does not use IV drugs ROS ROS ED Review of Systems ROS Unobtainable: other Constitutional Constitutional ED: Reports chills and lethargy; Denies fever(s), sweats or weight loss Eyes Eyes: Denies blurry vision, change in vision or diplopia ENT ENT ED: Denies rhinorrhea or sore throat Cardiovascular Cardiovascular: Denies chest pain, orthopnea or racing heartbeat Respiratory/Chest Respiratory/Chest: Denies cough, dyspnea, dyspnea on exertion, orthopnea or sputum Gastrointestinal Gastrointestinal: Reports abdominal pain; Denies diarrhea, nausea or vomiting Genitourinary Genitourinary ED: Denies dysuria, hematuria or urinary frequency Musculoskeletal Musculoskeletal: Reports back pain; Denies arthralgias, myalgias or neck pain Integumentary Denies abscess, Abrasions or rash Neurologic Neurologic: Reports other Details: Syncope ; Denies headache(s) or weakness Psychiatric Psychiatric: Denies anxiety, depression or suicidal thoughts Endocrine Endocrinology: Denies polydipsia, polyphagia or polyuria Hematologic/Lymphatic Hematologic/Lymphatic: Denies easy bleeding, easy bruising or lymphadenopathy Allergic/Immunologic Allergic/Immunologic ED: Denies mouth swelling, tongue swelling or urticaria EXAM Physical Exam Const Vital Signs: 12/17/24 18:59 12/17/24 19:23 12/17/24 19:33 Temperature 97.2 F L Temperature Source Temporal Pulse Rate 112 H 92 Respiratory Rate 16 16 Respiratory Effort Normal Respiratory Pattern Normal Blood Pressure 115/78 126/66 H Blood Pressure Mean 90 86 Pulse Ox 100 100 Oxygen Delivery Method Room Air Room Air 12/17/24 20:00 12/17/24 21:17 12/17/24 22:00 Temperature Temperature Source Pulse Rate 98 91 Respiratory Rate 14 18 Respiratory Effort Respiratory Pattern Blood Pressure 112/56 L 115/77 117/77 Blood Pressure Mean 74 89 90 Pulse Ox 99 99 96 Oxygen Delivery Method Room Air 12/17/24 23:00 Temperature Temperature Source Pulse Rate 94 Respiratory Rate 18 Respiratory Effort Respiratory Pattern Blood Pressure 105/66 Blood Pressure Mean 79 Pulse Ox 98 Oxygen Delivery Method Positive well nourished and well developed General Appearance ED: well developed and NAD HEENT Reports TM's clear and moist mucous membranes normocephalic and atraumatic; Negative for trauma or tenderness Tympanic Membrane ED: Yes TM's clear Eyes PERRL and EOMs intact bilaterally General Eye ED: Negative for pale conjunctiva or scleral icterus Neck no lymphadenopathy, supple and no JVD General: Negative for tenderness Chest Wall inspection of chest normal and palpation of chest normal Chest: Negative for tenderness Resp normal respiratory effort and clear to auscultation bilaterally Effort and Inspection: Negative for respiratory distress or pain with movement Auscultation: Negative for rhonchi, wheezes or diminished lung sounds Cardio regular rate, regular rhythm, S1 normal heart sound, S2 normal heart sound and no murmurs Peripheral Pulses: pulses 2+ throughout GI normal to inspection, nondistended, normoactive bowel sounds, soft to palpation,non-distended and no masses GI Narrative: Mild tenderness palpation over the left upper quadrant and left lower quadrant with mild guarding. There is no rebound, rigidity, or purulent signs. Mild CVAtenderness on the left. Back/Spine no thoracic nor lumbar tenderness; Negative for no CVA tenderness Back/Spine Narrative: Mild CVA tenderness on the left. Extremity normal to inspection General Extremety ED: Negative for edema General Extremity: Negative for edema Neuro oriented x3, CN's II-XII intact bilaterally, no sensory deficits noted and gait normal Sensorium / Orientation: awake, alert, oriented to person, oriented to place andoriented to time Motor Exam: strength 5/5 throughout and strength abnormal Psych mental status grossly normal Skin no rashes or lesions noted and no wounds MDM MDM MDM Narrative Medical decision making narrative: Patient presents to the emergency department with abdominal pain since this morning initially was epigastric now more left-sided lower abdomen. Diffuse tenderness to palpation over suprapubic region as well as left lower quadrant. There is no rebound or rigidity. IV line established. She was medicated with Toradol as well as Dilaudid and Zofran and had good pain relief with that. CBC with her shows a white count of 8.6 with hemoglobin 12 and platelet count of 225. Chemistries unremarkable. Lactate less than 1. Urinalysis negative for infection. hCG was negative. CT scan of the abdomen pelvis read by radiology as recent right ovarian cyst rupture with pelvic fluid. 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 Distal enteritis such as secondary to infection advise correlation. Patient has not had any diarrheal type illness. This point I did discuss case with [employer] on-call Dr. Christianson who would be happy to follow patientup in the office. No treatment indicated at this time for pelvic congestion syndrome. Patient will be given a prescription for a few Mendon for pain. Advised return if worsening pain, fever, vomiting, or condition should worsen anyway. I suspect the syncopal episode was likely vagally mediated related to pain. EKG obtained arrival showed a sinus rhythm with rate of 105 bpm with no acute ST segment changes Lab Data Attestation: I reviewed the patient's lab results. Labs: Laboratory Results - last 24 hr 12/17/24 12/17/24 12/17/24 19:26 19:26 19:42 WBC Cancelled Corrected WBC Cancelled RBC Cancelled Hgb Cancelled Hct Cancelled MCV Cancelled MCH Cancelled MCHC Cancelled RDW Std Deviation Cancelled RDW Coeff of Conrado Cancelled Plt Count Cancelled MPV Cancelled Immature Gran % (Auto) Cancelled Neut % (Auto) Cancelled Lymph % (Auto) Cancelled Hand % (Auto) Cancelled Eos % (Auto) Cancelled Baso % (Auto) Cancelled Absolute Neuts (auto) Cancelled Absolute Lymphs (auto) Cancelled Total Counted Cancelled Neutrophils % (Manual) Cancelled Band Neutrophils % Cancelled Lymphocytes % (Manual) Cancelled Monocytes % (Manual) Cancelled Eosinophils % (Manual) Cancelled Basophils % (Manual) Cancelled Metamyelocytes % Cancelled Myelocytes % Cancelled Promyelocytes % Cancelled Blast Cells % Cancelled Plasma Cell % (Manual) Cancelled Other Cells % Cancelled Nucleated RBC % Cancelled Nucleated RBCs/100 WBC Cancelled Differential Comment Cancelled Diff Path Review Cancelled Hypersegmented Neuts Cancelled Atypical Lymphocytes Cancelled Reactive Lymphocytes Cancelled Smudge Cells Cancelled Toxic Granulation Cancelled Toxic Vacuolation Cancelled Dohle Bodies Cancelled Lindsay Rods Cancelled Platelet Estimate Cancelled Plt Morphology Comment Cancelled RBC Morphology Cancelled Cancelled Polychromasia Cancelled Hypochromasia Cancelled Basophilic Stippling Cancelled Anisocytosis Cancelled Microcytosis Cancelled Macrocytosis Cancelled Spherocytes Cancelled Sickle Cells Cancelled Target Cells Cancelled Tear Drop Cells Cancelled Ovalocytes Cancelled Stomatocytes Cancelled [place] Bodies Cancelled Stapleton Cells Cancelled Bite Cells Cancelled Crenated Cell Cancelled Acanthocytes (Spur) Cancelled Rouleaux Cancelled Schistocytes Cancelled Sodium 134 Potassium 4.3 Chloride 102 Carbon Dioxide 17.5 L Anion Gap 15 BUN 8 Creatinine 0.63 L Estim Creat Clear Calc 120.70 Est GFR (MDRD) Non-Af 125 BUN/Creatinine Ratio 12.7 Glucose 94 Lactic Acid < 1.0 Calcium 9.7 Total Bilirubin 0.38 AST 24 ALT 9 Alkaline Phosphatase 71 Total Protein 7.0 Albumin 4.3 Globulin 2.7 Albumin/Globulin Ratio 1.6 Lipase 17 Serum , Qual NEGATIVE Urine Color Yellow Urine Clarity Sl. Cloudy Urine pH 6.5 Ur Specific Crosby 1.010 Urine Protein 15 H Urine Glucose (UA) Normal Urine Ketones 15 H Urine Occult Blood Negative Urine Nitrite Negative Urine Bilirubin Negative Urine Urobilinogen Normal Ur Leukocyte Esterase 100 H Urine RBC 0-5 SEEN Urine WBC 5-10 SEEN Ur Squamous Epith Cells 25-50 SEEN Ur Transition Epith Cell 0-5 SEEN Urine Bacteria 2+ Urine Mucus 0 SEEN 12/17/ 20:51 WBC 8.6 Corrected WBC RBC 4.06 L Hgb 12.2 Hct 35.6 L MCV 87.7 MCH 30.0 MCHC 34.3 RDW Std Deviation 40.3 RDW Coeff of Conrado 12.4 Plt Count 225 MPV 9.2 Immature Gran % (Auto) 0.300 Neut % (Auto) 84.6 H Lymph % (Auto) 10.0 L Hand % (Auto) 4.9 Eos % (Auto) 0.0 Baso % (Auto) 0.2 Absolute Neuts (auto) 7.3 Absolute Lymphs (auto) 0.86 Total Counted Neutrophils % (Manual) Band Neutrophils % Lymphocytes % (Manual) Monocytes % (Manual) Eosinophils % (Manual) Basophils % (Manual) Metamyelocytes % Myelocytes % Promyelocytes % Blast Cells % Plasma Cell % (Manual) Other Cells % Nucleated RBC % 0 Nucleated RBCs/100 WBC Differential Comment Diff Path Review Hypersegmented Neuts Atypical Lymphocytes Reactive Lymphocytes Smudge Cells Toxic Granulation Toxic Vacuolation Dohle Bodies Lindsay Rods Platelet Estimate Plt Morphology Comment RBC Morphology Polychromasia Hypochromasia Basophilic Stippling Anisocytosis Microcytosis Macrocytosis Spherocytes Sickle Cells Target Cells Tear Drop Cells Ovalocytes Stomatocytes Lopez-[place] Bodies Sheeba Cells Bite Cells Crenated Cell Acanthocytes (Spur) Rouleaux Schistocytes Sodium Potassium Chloride Carbon Dioxide Anion Gap BUN Creatinine Estim Creat Clear Calc Est GFR (MDRD) Non-Af BUN/Creatinine Ratio Glucose Lactic Acid Calcium Total Bilirubin AST ALT Alkaline Phosphatase Total Protein Albumin Globulin Albumin/Globulin Ratio Lipase Serum , Qual Urine Color Urine Clarity Urine pH Ur Specific Crosby Urine Protein Urine Glucose (UA) Urine Ketones Urine Occult Blood Urine Nitrite Urine Bilirubin Urine Urobilinogen Ur Leukocyte Esterase Urine RBC Urine WBC Ur Squamous Epith Cells Ur Transition Epith Cell Urine Bacteria Urine Mucus Radiography Diagnostic Testing: Clinical Impression(s) from Imaging Studies Abdomen/Pelvis CT 12/17/24 19:14 IMPRESSION: Recent right ovarian cyst rupture with pelvic fluid, this can be a cause of pain. 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 Distal enteritis such as secondary to infection. Advise correlation. Reading Location: [place] [address] EKG Initial EKG: Attestation: I personally reviewed and interpreted this EKG as follows: Comments: Sinus tachycardia with ventricular rate of 105 bpm with no acuteST segment changes Discharge Plan Triage Chief Complaint: Syncope Other Complaint: Back ED Provider: Emelina Howard Dx/Rx/DC Orders Clinical Impression: Abdominal pain, Ovarian cyst Instructions: ED Abdominal Pain Unkn Cause Fem, ED Ovarian Cyst, ED Fainting, Vagal Reaction Prescriptions: New hydrocodone-acetaminophen 5-325 mg tablet 1 tab PO Q4H PRN PRN (Reason: Pain) 2 Days Qty: 10 0RF Primary Care Provider: Care Physician,No Primary Referrals: Anahi Christianson MD [Med Staff - Active Staff] - 3-5 Days Care Physician,No Primary [Primary Care Provider] - Print Language: Citizen Of [place] Disposition Disposition: Home, Self Care What to do if you have Problems For any increased pain, shortness of breath, bleeding, nausea or vomiting, chestpain, or any unexpected problems, contact your Primary Care Provider. Call [facility] ([phone]) or report to the closest Emergency Room. Call 911 if necessary. 12/17/24 1478 <Electronically signed by Emelina Howard DO> Cosigner Signature (if applicable): CC: No Primary Care Physician ~ Signed [facility] Work Phone: [phone]) 102-516208-03-2023 History of Present illness Narrative* Radha Stephens MA - 12/31/2022 3:45 PM EDT A substitute nurse was offered to be present during her exam. The patient: declined * Genesis Polk MD - 12/31/2022 3:45 PM EDT Catalina Marvin 12/31/2020 27 y.o. Primary Care [...] Reaction Noted Lactose intolerance (gi) 07/16/2022 Ken[place]-d [chlophedianol-pseudoephedrine] 03/23/2010 REVIEW OF SYSTEMS: Constitutional: Negative for activity change, appetite change, fatigue, fever and unexpected weightchange. Respiratory: Negative for cough and shortness of [...] PSYCHIATRIC Normal mood and affect, A&O x3. 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 60tablet 3 ibuprofen 600 MG tablet Take 1 [...] Lactose intolerance (gi) 07/16/2022 Rondec-d [chlophedianol-pseudoephedrine] 03/23/2010 PHYSICAL EXAMINATION: BP (!) 147/99 [...] visit. Genesis Polk MD documented in this [facility]02-23-2023 NoteGyn Discharge Summary Patient Name: Catalina Marvin Patient [...] pre-eclampsia. She presented to a transfer from [facility], received magnesium for seizure ppx. [...] restrictions reviewed. Chinyere Winchester MD 07/21/2022, 10:33 [facility]02-23-2023 Hospital course Narrative* Shyam Kent MD - 07/23/2022 10:38 AM EST Images from the original note were not included. 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 Did note require acute treatment while here. She resumed her home procardia 60/30 dosing. She was stable off magnesium, and Bps were normotensive, deemed stable for discharge. Hospital course normal, dischargedhome 07/23/22. Follow up in 3-5 days for [...] as other medications prescribed for you. Read thedirections carefully, and ask your doctor or other care provider to review them with you. Activity: activity as tolerated Diet: regular diet Follow up: 07/27 for BP check Condition on discharge: good and stable Discharge Date: 07/23/22 Comments: Home care, Follow-up care, restrictions reviewed. Chinyere Winchester MD 07/21/2022, 10:33 PM documented in this [facility]02-23-2023 Hospital Discharge instructions* Discharge Instructions* Shyam Kent MD - 07/23/2022 10:37 AM EST Images from the original note were not included. Hypertension Discharge Instructions 1. A blood pressure cuff will be ordered through the [facility] and delivered to your [...] morning and evening. Keep a record of yourblood pressures to bring to the office. A log can be created for you on Wrnch. Please ask your nurse how to access [...] discharge for a blood pressure check. Call [phone] if the office has not called you within 24 hours. 8. If you are able to take your blood pressure at home, this appointment may be scheduled as a virtual visit. You will need to keep a record of you blood pressures for the doctor to review for this visit to be scheduled virtually. * Attachments The following attachments cannot be sent through Care Everywhere. * Preeclampsia Discharge Instructions (Citizen Of [place]) * Nifedipine, ADULT (Citizen Of [place]) documented in this [facility]02-23-2023 History of Present illness Narrative* Ashley Oliver, PHAMR - 07/23/2022 10:21 AM EST Nutrition rescreen completed. Chart reviewed. Patient to be monitored and followed by the diet hydraulic technician. Dietitian available upon request. * Marybeth Mcgregor DO - 07/23/2022 6:04 AM EST Images from the original note [...] and bottle feeding PreEwSF - Returned to [facility] on 07/21 for headache, vision changes and elevated blood pressures at home, had been seen at OSH prior to transfer to [facility] and was started on magnesium sulfate - [...] MD MARYBETH Buckley, DO 07/23/2022, 6:05 AM * Marybeth Mcgregor DO - 07/22/2022 6:38 AM EST Images from the original note [...] magnesium sulfate at 1800 and transferred to [facility] - Currently has magnesium sulfate running, plan [...] consider discharge tomorrow AM. documented in this [facility]02-22-2023 Miscellaneous Notes* Note - Sera Chu RN - 07/22/2022 2:00 PM EST Called to see pt by RN. Pt delivered twin girls on 07/18/22 and is in need of pump for home. Instructed pt to call [employer] to utilize her insurance benefits to obtain pump for home. Contact information for [employer] given to pt. Pt verbalizes understanding, denies questions. * Care Coordination - WENDY Leung - 07/22/2022 9:00 AM EST Follow up call to [facility] to check status of report made. Spoke to Cindy Neil who states referral screened out and will not be assigned worker at this time. Sw to follow if needs arise * Care Plan - Lisa Kraus RN - 07/21/2022 9:21 PM EST Problem: Pain - Adult Goal: Verbalizes/displays adequate comfort level or baseline comfort level Outcome: Progressing Problem: Safety - Adult Goal: Free from fall injury Outcome: Progressing Problem: Chronic Conditions and Co-morbidities Goal: Patient's chronic conditions and co-morbidity symptoms are monitored and maintained or improved Outcome: Progressing * Care Coordination - WENDY Leung - 07/21/2022 8:58 AM EST Referral made to [facility] hotline due to thc use during . Spoke to Linwood Rodrigues to make referral. . Informed hotline pt and twins have been dc. They will review and decide if opening and follow in community. SW to follow as needed documented in this [facility]02-22-2023 Obstetrics Note* Note - Sera Chu RN - 07/22/2022 2:00 PM EST Called to see pt by RN. Pt delivered twin girls on 07/18/22 and is in need of pump for home. Instructed pt to call [employer] to utilize her insurance benefits to obtain pump for home. Contact information for [employer] Val[employer] given to pt. Pt verbalizes understanding, denies questions. [id number] Nurse Note* Yisel Shabazz RN - 07/22/2022 12:19 PM EST Patient educated on use of breast pump and encouraged to pump 8-10x/day while in hospital. professional services consultant notified pt requesting assistance with ordering new breast pump through insurance. professional services consultant states she will be down this afternoon to see patient. [facility] [id number] Nurse Note* Yisel Shabazz RN - 07/22/2022 12:19 PM EST Patient educated on use of breast pump and encouraged to pump 8-10x/day while in hospital. professional services consultant notified pt requesting assistance with ordering new breast pump through insurance. professional services consultant states she will be down this afternoon to see patient. * Yisel Shabazz RN - 07/22/2022 9:41 AM EST Breast pump and supplies at bedside for patient. Patient currently resting, states will call out when ready to use pump. documented in this [facility]02-22-2023 Nurse Note* Yisel Shabazz RN - 07/22/2022 9:41 AM EST Breast pump and supplies at bedside for patient. Patient currently resting, states will call out when ready to use pump. [facility] [id number] Note* Care Coordination - WENDY Leung - 07/22/2022 9:00 AM EST Follow up call to [facility] to check status of report made. Spoke to Cindy Neil who states referral screened out and will not be assigned worker at this time. Sw to follow if needs arise [facility] [employer] Work Phone: 1(611) 923-778202-22-2023 Note* Care Coordination - WENDY Leung - 07/22/2022 9:00 AM EST Follow up call to [facility] to check status of report made. Spoke to Cindy Neil who states referral screened out and will not be assigned worker at this time. Sw to follow if needs arise [employer] [facility] Phone: 1(687) 288-379002-22-2023 Note Attestation signed by Tiana Arenas MD at 07/22/2022 10:00 AM Hospital Care (Present): I was present with the resident during the history and exam. I discussed the case with the resident and agree with the findings and plan as documented in the resident's note. PRINCIPAL SOLUTIONS ARCHITECT H&P Patient Name: Catalina Marvin Patient : 1995 Room[facility]: [facility] Admission Date/Time: 07/21/2022 8:58 PM Primary Care Physician: Mark Dowd MD HPI: Catalina Marvin is a 26 y.o. female , s/p with Di/Di on 07/18 presents to [facility] as direct transport from [facility] with [facility]. She states she feels like she have had elevated BP at home, presented to [facility], she states she was not acutely treated [...] Complications: Other, Pre-eclampsia in third trimester Name: LAURA MAVRINERICKRAMU Apgar1: 7 Apgar5: 9 3B Term 07/18/22 [...] 27.66 kg/m? INPUT/OUTPUT: No intake/output data recorded. @[id number]@ PHYSICAL EXAM: Gen: NAD Resp: No increase [...] GLUCOSEU, BILIRUBINUR DIAGNOSTICS: ASSESSMENT & PLAN: Catalina Marivn is a 26 y.o. female , PPD #3 s/p SVE of Di/Di twins PP PreE - IOL for PreEwoSF on 07/17 - Discharged home on Procardia 60/30 - Pt presented to OSH with MILLER, VC and elevated BP - Started on Mag bolus with infusion at 2 g/hr at 1800 on 07/21 - On presentation to [facility], pt complained of MILLER, VC - BP low mild range to normotensive - Continue home procardia 60/30 - Repeat PreE labs in the AM - Plan to turn off mag after 24 hours. state - Light lochia - Bottle feeding - No BC - Female baby x2 with parents Plan discussed with Dr. Arenas, who is agreeable. Chinyere Winchester MD 07/21/2022, 10:18 [facility]02-21-2023 History and physical note* Chinyere Winchester MD - 07/21/2022 10:18 PM EST Images from the original note were not included. PRINCIPAL SOLUTIONS ARCHITECT H&P Patient Name: Catalina Marvin Patient : 1995 Room/Bed: -2205/-2205 A Admission Date/Time: 07/21/2022 8:58 PM Primary Care Physician: Mark Dowd MD HPI: Catalina Marvin is a 26 y.o. female , s/p with Di/Di on 07/18 presents to [facility] as [facility]. She states she feels like she have had elevated BP at home, presented to [facility], she states she was not acutely treated [...] 27.66 kg/m INPUT/OUTPUT: No intake/output data recorded. @[id number]@ PHYSICAL EXAM: Gen: NAD Resp: No increase [...] 1800 on 07/21 - On presentation to [facility], pt complained of MILLER, VC - BP [...] plan as documented in the resident's note. [facility] [id number] History and physical note* Chinyere Winchester MD - 07/21/2022 10:18 PM EST Images from the original note were not included. PRINCIPAL SOLUTIONS ARCHITECT H&P Patient Name: Catalina Marvin Patient : 1995 Room/Bed: 2205/[facility] A Admission Date/Time: 07/21/2022 8:58 PM Primary Care Physician: Mark Dowd MD HPI: Catalina Marvin is a 26 y.o. female , s/p with Di/Di on 07/18 presents to [facility] as direct transport from [facility] with PreEwSF. She states she feels like she have had elevated BP at home, presented to [facility], she states she was not acutely treated [...] Other, Pre-eclampsia in third trimester Name: LORNE MARVINHARDIKRAMU Apgar1: 8 Apgar5: 9 2 Term 01/09/19 [...] 27.66 kg/m INPUT/OUTPUT: No intake/output data recorded. @[id number]@ PHYSICAL EXAM: Gen: NAD Resp: No increase [...] 1800 on 07/21 - On presentation to [facility], pt complained of MILLER, VC - BP [...] in the resident's note. documented in this encounterSDoctors [id number] Plan of care note* Care Plan - Lisa Kraus RN - 07/21/2022 9:21 PM EST Problem: Pain - Adult Goal: Verbalizes/displays adequate comfort level or baseline comfort level Outcome: Progressing Problem: Safety - Adult Goal: Free from fall injury Outcome: Progressing Problem: Chronic Conditions and Co-morbidities Goal: Patient's chronic conditions and co-morbidity symptoms are monitored and maintained or improved Outcome: Progressing [facility] CenterPhwfez05-87-2925 Telephone encounter Note* Telephone Encounter - Osman Grewal - 07/21/2022 6:39 PM EST Name of caller requesting page: Dr. Flori Aquino Phone number of caller: [phone] Facility requesting page: [facility] Reason for page: Pt recently delivered and is in ER with abnormal labs and pre-eclampsia. Provider paged: Dolly Matta name of paged provider: [facility] Page placed to #: Secure chat Time page was sent or provider contacted: 6:39 pm Method of contact: Secure chat Page content: Pt recently delivered and is now at [facility] with abnormal labs and pre-eclampsia. CB Dr. Flori Aquino [phone] [facility] CenterPkzowz74-41-1509 Miscellaneous Notes* Telephone Encounter - Osman Grewal - 07/21/2022 6:39 PM EST Name of caller requesting page: Dr. Flori Aquino Phone number of caller: [phone] Facility requesting page: [facility] Reason for page: Pt recently delivered and is in ER with abnormal labs and pre-eclampsia. Provider paged: Dolly Matta name of paged provider: [facility] Page placed to #: Secure chat Time page was sent or provider contacted: 6:39 pm Method of contact: Secure chat Page content: Pt recently delivered and is now at [facility] with abnormal labs and pre-eclampsia. CB Dr. Flori Aquino [phone] documented in this [facility]02-21-2023 NoteReferral made to [facility] hotline due to thc use during . Spoke to Linwood Rodrigues to make referral. . Informed hotline pt and twins have been dc. They will review and decide if opening and follow in community. SW to follow as needed [facility]02-21-2023 Note* Care Coordination - WENDY Leung - 07/21/2022 8:58 AM EST Referral made to [facility] hotline due to thc use during . Spoke to Linwood Rodrigues to make referral. . Informed hotline pt and twins have been dc. They will review and decide if opening and follow in community. SW to follow as needed [facility] CenterNrtduz86-50-7796 Note* Care Coordination - WENDY Leung - 07/21/2022 8:58 AM EST Referral made to [facility] hotline due to thc use during . Spoke to Linwood Rodrigues to make referral. . Informed hotline pt and twins have been dc. They will review and decide if opening and follow in community. SW to follow as needed [facility]02-20-2023 NotePt watched discharge teaching video. Reviewed Guide to [...] to cope Patient states understanding and denies questions.[facility] 07-20-2022 NoteDepartment of Obstetrics and Gynecology Delivery Discharge Summary [...] Delivery: Was patient delivered between 37w0d - 09f8hkxcmf? Yes - di/di twins Surgical Operations & Procedures: Date of delivery: 07/18/22 Delivery Type: Vaginal, Spontaneous Delivery x2 Anesthesia: Epidural anesthesia Laceration(s): none Delivery Complications: none EBL: 300 cc Pertinent Findings & Procedures: Information for the patient's : Salome Marvin [[id number]] female 7 lb 3.3 oz (3.27 kg) Information for the patient's : Yolanda Marvin [[id number]] female 6 lb 10.9 oz (3.03 kg) Apgars: Information for the patient's : Salome Marvin [[id number]] Information for the patient's : Yolanda Marvin [[id number]] Course: Met criteria for PreEwSF following delivery. [...] Your Medications These medications were sent to [facility]/pharmacy #[id number] - [place], [place] - [phone] [place] [address] acetaminophen 500 MG tablet Comfort Touch BP [...] her physician if any of these occur. Sahina Lucero MD on 07/20/2022 at 4:07 [facility]02-20-2023 History of Present illness Narrative* Armando Hernandez RN - 07/20/2022 5:29 PM EST Pt watched discharge teaching video. Reviewed Guide [...] cope Patient states understanding and denies questions. * Shaina Lucero MD - 07/20/2022 6:05 AM EST Images from the original note [...] Vital Signs: Vitals: 07/19/22 1607 07/19/22 1701 07/19/227 07/20/22 0027 BP: (!) 143/104 (!) 143/105 (!) [...] home on Procardia 60/30 and follow-up in theoffice in 2 to 3 days for blood pressure check. Denies any need for control today. * Genesis Kohli RN - 07/19/2022 5:03 PM EST Up to bathroom to void pt called for help for dizziness and warm. Assisted to bed per nurse tech and vital signs obtained. In to room to assess pt per request of tech. Pt states that she feels betternow being back in bed. Blood pressure is in range of where she has been running today. Will report to assigned nurse. * Ashley Oliver DTR - 07/19/2022 1:04 PM EST Nutrition rescreen completed. Patient assigned a level 1. * [place] MD - 07/19/2022 11:24 AM EST Images from the original note [...] care as documented in the resident's note. * Linwood Garcia DO - 07/18/2022 12:12 AM EST Images from the original note [...] 20min of both twins on the monitor. senior engineering specialist, , primary RN present and in agreement. FREDERIC ROCK, DO 07/18/2022 12:17 AM Patient not feeling well, having headache at this time and nausea. BP elevated. PreE labs pending. No SOB, RUQ pain or vision changes. Will continue to monitor. FREDERIC ROCK, DO 07/18/2022 12:25 AM Cat I/Cat I with moderate variability and spon accels. Pit @4cc/hr. Will continue to titrate per protocol. Jassi every 6min. [facility]. FREDERIC ROCK, DO 07/18/2022 1:24 AM Cat I with moderate variability and spon accels for Twin A. Cat I with moderate variability and spon accels for Twin B. Pit @8cc/hr. Plan for AROM after epidural placement. Patient met criteria for PreEwoSF 2/2 gHTN with elevated UPC. Patient had headache that resolved with Reglan. CCM. FREDERIC ROCK, DO 07/18/2022 3:47 AM AROM of twin [...] for periods of minimal variability but overall moderatevariability and spon accels throughout. Pit @14cc/hr. Jassi every 2-3min. [facility]. FREDERIC ROCK, DO 07/18/2022 6:41 AM Cx:7/80/-2 FHT: cat I/cat I Ken[place]:q1-3min A/P: 1. IOL-Di/Di twins FHR cat I with moderate variability, spontaneous accels, normal baseline, no significant decels. Head feels asynclitic with more cervix on maternal right side. Patient repositioned. Pitocin at 14cc/hr. Continue to titrate per protocol. BP's normotensive to mild range. Continue to monitor. Cx: Defer FHT: Cat I/Cat I Ken[place]: q 2 min A/P: 1. IOL-Di/Di Twins/PrEwoSF: Both babies cat I. Epidural redosed at 1100. Pt comfortable at this time. No feeling any more pressure. BP normotensive to mild range. Pit @ 16cc/hr, titrate per protocol. CCM. Cervix 7-8/80/-2 FHT cat I/cat I Ken[place]: q1-3 min FHT cat I/cat I. Cervix [...] CCM. Cx: Defer FHT: Cat I/Cat I Kenly: q 5 min A/P: 1. IOL-Di/Di Twins, PreEwoSF: Both babies Cat I. Pt resting at this time. Will plan for recheck at next position change. Some coupling of contractions noted. Pitocin @ 18 ml/hr, titrate per protocol. BP mild range. CCM. Cx:10/100/+1 FHP: OA FHT: Cat I/Cat I Ken[place]:q 2-3 min A/P: 1. IOL-Di/Di Twins, PreEwoSF: [...] delivery summary for details. documented in this [facility]02-20-2023 Note* Care Coordination - Michelle Yi, ROADS SUPERVISOR - 07/20/2022 4:44 PM EST Sw consult due to hx of thc. Met with mother of baby/mob at bedside. Mob delivered twins (Frederic and Rohini Mir). Father of baby Gino Mir [birth year]01[birth year] in chair holding one baby. Fob appeared very supportive. Mob also attentive to babies. Mob and fob live together with a roommate, as well as mob's other dtr Viktoria Marvin 01-09-19. Fob has another dtr Sachin alberto 07-26-05 who he adopted and has shared custody of with child's grandmother. Augie states she is prepared for twins with carseats, crib, basinetts, clothing, diapers etc and is signed up for [facility]. Educated on safe sleep practices.Mob reports some pp depression after of first child, however, she did not feel the need to see k dileep. States mood currently stable. Discussed thc use. She admits to smoking almost daily to help with nausea and sleep. States the thc is kept in a separate room upstairs and locked up. States when she uses it is away from dtr either in that room or [facility]. States plans to cut down nowthat she has delivered as her heartburn will be better. She denied use of any other drugs. States last use was 07-16-22.Tox on 07-17-22 was negative for all substances including thc. Sw discussed negative effects of continued use and also discussed that a referral will be made to [facility]. Parents expressed understanding and states they were involved very briefly a couple of years ago due to maddy's daughter visiting from [place] and had not yet enrolled in school. OB resources discussed. [facility] closed today due to Presidents day, SW will make referral tomorrow and they can follow in community. [place] [facility] [place] [facility] Work Phone: 1(306) 748-359702-20-2023 Note* Care Coordination - WENDY Leung - 07/20/2022 4:44 PM EST Sw consult due to hx of thc. Met with mother of baby/mob at bedside. Mob delivered twins (Frederic and Rohini Mir). Father of baby Gino Mir [birth year]01[birth year]94 in chair holding one baby. Fob appeared very supportive. Mob also attentive to babies. Mob and fob live together with a roommate, as well as mob's other dtr Viktoria aMrvin 01-09-19. Fob has another dtr Sachin alberto 07-26-05 who he adopted and has shared custody of with child's grandmother. Augie states she is prepared for twins with carseats, crib, basinetts, clothing, diapers etc and is signed up for [facility]. Educated on safe sleep practices.Mob reports some pp depression after of first child, however, she did not feel the need to see k dileep. States mood currently stable. Discussed thc use. She admits to smoking almost daily to help with nausea and sleep. States the thc is kept in a separate room upstairs and locked up. States when she uses it is away from dtr either in that room or outside on [facility]. States plans to cut down nowthat she has delivered as her heartburn will be better. She denied use of any other drugs. States last use was 07-16-22.Tox on 07-17-22 was negative for all substances including thc. Sw discussed negative effects of continued use and also discussed that a referral will be made to [facility]. Parents expressed understanding and states they were involved very briefly a couple of years ago due to maddy's daughter visiting from [place] and had not yet enrolled in school. OB resources discussed. [facility] closed today due to Presidents day, SW will make referral tomorrow and they can follow in community. [place] [facility] [place] [facility] Work Phone: 1(486) 627-742402-20-2023 Miscellaneous Notes* Care Coordination - WENDY Leung - 07/20/2022 4:44 PM EST Sw consult due to hx of thc. Met with mother of baby/mob at bedside. Mob delivered twins (Frederic and Rohini Mir). Father of baby Gino Mir [birth year]01[birth year]94 in chair holding one baby. Fob appeared very supportive. Mob also attentive to babies. Mob and fob live together with a roommate, as well as mob's other dtr Viktoria Marvin 01-09-19. Fob has another dtr Sachin alberto 07-26-05 who he adopted and has shared custody of with child's grandmother. Augie states she is prepared for twins with carseats, crib, basinetts, clothing, diapers etc and is signed up for [facility]. Educated on safe sleep practices.Mob reports some pp depression after of first child, however, she did not feel the need to see k dileep. States mood currently stable. Discussed thc use. She admits to smoking almost daily to help with nausea and sleep. States the thc is kept in a separate room upstairs and locked up. States when she uses it is away from dtr either in that room or outside on [facility]. States plans to cut down nowthat she has delivered as her heartburn will be better. She denied use of any other drugs. States last use was 07-16-22.Tox on 07-17-22 was negative for all substances including thc. Sw discussed negative effects of continued use and also discussed that a referral will be made to [facility]. Parents expressed understanding and states they were involved very briefly a couple of years ago due to maddy's daughter visiting from [place] and had not yet enrolled in school. OB resources discussed. [facility] closed today due to Presidents day, SW will make referral tomorrow and they can follow in community. [place] * Care Coordination - Ramona Reyes RN - 07/20/2022 12:36 PM EST 26 year old admitted for induction of labor for di/di twins. Vaginal delivery. History of THC. Patient states she used during . Negative at delivery. Social service referral. Explained Marijuana use during can be harmful to your baby's health. The chemicals in marijuana (in particular, THC) pass through your system to your baby and can negatively affect your baby's development.Some research shows that using marijuana while you are can cause health problems in newborns-- including low weight and developmental problems. Research shows marijuana use during may make it hard for your child to pay attention or to learn, these issues may only become noticeable as your child grows older Chemicals from marijuana can be passed to your baby through breastmilk. THC is stored in fat and is slowly released over time, meaning an infant could be exposed fora longer period of time. Patient is independent [...] depression. It is common to have blues. Thisis a normal response to many of the hormonal changes, stress and lack of sleep that go with raisinga and physically recovering from the . Don't [...] home. Denies any concerns at this time. * Note - Katyh Hernandez RN - 07/20/2022 11:10 AM EST Met with patient to check in. Patient plans to exclusively pump instead of latching baby. Patient has been pumping and feeding the breastmilk to babies, but is still needing to supplement. Patient iscomfortable with this plan, and has been giving babies 30ml of formula or breastmilk per feed. Reminded patient that we are here to help, even when they are discharged, reviewed our phone number, andencouraged patient to call with questions, or if she would like to join us in group. Patient deniesfurther questions. Will continue to monitor and encourage. * Note - Ju Adam RN - 07/19/2022 12:00 PM EST PT seen regarding of full term twins. [...] wide latch. Baby with off and on latching,but no consistent, rhythmic suckling. Baby appears very [...] milk production discussed. Pt told to call [facility] tomorrow to obtain insurance covered breast pump. Family shown how to use wall touch pad to call for LC. Pt and family receptive to all education. * Significant Event - Linwood Garcia DO - 07/18/2022 9:02 PM EST Notified by RN of increased bleeding and [...] (!) 151/102 Pulse: 75 Resp: Temp: SpO2: * Care Plan - Lucy Bergman RN - 07/18/2022 8:25 PM EST Problem: Vaginal or Section Goal: and maternal [...] other facility with appropriate resources Outcome: Completed * L&D Delivery Note - Linwood Garcia DO - 07/18/2022 7:54 PM EST Images from the original note were not included. Vaginal Delivery Note Department of Obstetrics and Gynecology Patient: Catalina Marvin : 1995 Date of delivery: 07/18/2022 Pre-operative Diagnosis: Catalina Santiago at 38w1d 1. Term 2. Di/Di Twins 3. PreEwoSF Post-operative Diagnosis: Live Born female, Live Born female Delivering Diamond Sizer And Grader & Film Printer(s): Dr. Dolly Saldivar; Dr. Linwood Garcia Infant Information: Information for the patient's : Thomas Marvin ONE [[id number]] Information for the patient's : Thomas Marvin TWO [[id number]] Information for the patient's : Thomas Marvin ONE [[id number]] Information for the patient's : Thomas Marvin TWO [[id number]] Description: normalx2 Meconium Noted: No Anesthesia: epidural [...] present. The anterior, then posterior shoulder delivered easilyand atraumatically followed by the rest of the infant. The was placed on the maternal abdomen and attended by the RN for evaluation. The infant was stimulated and dried. The cord was clamped an d cut. Baby B was then evaluated and found to be cephalic. AROM was performed at that time for clear fluid. Pt pushed with contractions and the head delivered cephalic, right occiput anterior over an intact perineum. A nuchal cord was not present. The anterior and then posterior shoulder delivered easily and atraumatically followed by the rest of the . The infant was placed on the maternal [...] Status: No results found for: RUBELLAIGG LINWOOD Bowersace, 07/18/2022, 7:55 PM Associated attestation - Dolly Saldivar MD - 07/18/2022 10:57 PM EST Procedures or Surgery: I was present for all raphael elements of the procedure or surgery as described in the resident note. * Care Plan - Lucy Bergman RN - 07/17/2022 9:43 PM EST Problem: Vaginal or Section Goal: and maternal [...] appropriate resources Outcome: Progressing documented in this [facility]02-20-2023 Hospital course Narrative* Shaina Lucero MD - 07/20/2022 4:07 PM EST Images from the original note were [...] Delivery: Was patient delivered between 37w0d - [id number]? Yes - di/di twins Surgical Operations & Procedures: Date of delivery: 07/18/22 Delivery Type: Vaginal, Spontaneous Delivery x2 Anesthesia: Epidural anesthesia Laceration(s): none Delivery Complications: none EBL: 300 cc Pertinent Findings & Procedures: Information for the patient's : Salome Marvin [[id number]] female 7 lb 3.3 oz (3.27 kg) Information for the patient's : Yolanda Marvin [[id number]] female 6 lb 10.9 oz (3.03 kg) Apgars: Information for the patient's : Salome Marvin [[id number]] Information for the patient's : Yolanda Marvin [[id number]] Course: Met criteria for PreEwSF following delivery. [...] as other medications prescribed for you. Read thedirections carefully, and ask your doctor or other [...] Your Medications These medications [facility] sent to [id number] - [place], [place] - [id number] [place] [address] acetaminophen 500 MG tablet Comfort Touch BP [...] 07/20/2022 at 4:07 PM documented in this [facility]02-20-2023 Telephone encounter Note* Telephone Encounter - Shaina Lucero MD - 07/20/2022 4:06 PM EST Please call patient to be seen in 3 days for BP check. Thanks! [phone] Miscellaneous Notes* Telephone Encounter - Shaina Lucero MD - 07/20/2022 4:06 PM EST Please call patient to be seen in 3 days for BP check. Thanks! documented in this [facility]02-20-2023 Hospital Discharge instructions* Discharge Instructions* Shaina Lucero MD - 07/20/2022 4:05 PM EST Thank you for allowing us to care of you at [facility]. This time can be one of [...] and safety. Follow-up with your OB providerin 4weeks or as specified by your OB provider. If you had high blood pressure, visit your OB provider within 3-5 days after being home. Most women's blood pressure will return to pre- levels after delivery. However, some patients continueto have problems with their blood pressure, and [...] over the next few weeks. Bleeding may turkey picker and then decrease again around 7-10 days [...] for section, or longer if you are onprescription pain medicine unless otherwise instructed by your [...] the first year after delivery. Contact your OBprovider if you feel you may be showing signs of depression, or have thoughts of harmingyourself or or anyone.. WOUND CARE For Vaginal Delivery: Shower daily, and cleanse your perineum (bottom) with mild soap from front to back. Use the plasticsquirt bottle until bleeding stops each time you [...] or develop a fever contact your OB provider.If your breasts become engorged ask your provider because treatment can vary according to your needs. DIET & CONSTIPATION Eat a well-balanced diet focusing on foods high in fiber and protein such as: whole grain cereals and breads, fruits and vegetables and legumes (eg, beans, lentils) Drink 8-10 glasses of fluids daily, especially water. Limit caffeine. To avoid constipation you may take a mild lnms-ahx-desejsg stool softener (such as colace) as recommended [...] over the counter medicines unless recommended by yourprovider. Don't smoke. WHEN TO CALL THE OB [...] and can be isolated at home, you willbe monitored by staff from your local or [...] medical care. Do not go to work, school,or public areas. Avoid using public transportation, ride-sharing, [...] recommended that people sick with COVID-19 limit contactwith animals until more information is known about the virus. When possible, have another member ofyour household care for your animals while you [...] clean your hands with an alcohol-based hand lead man over all dies in pattern shop that contains at least 60% alcohol. Clean your hands often Wash your hands often with soap and water for at least 20 seconds, especially after blowing your nose, coughing, or sneezing; going to the bathroom; and before eating or preparing food. If soap and water are not readily available, use an alcohol-based hand lead man over all dies in pattern shop with at least 60% alcohol, covering all surfaces of your hands and rubbing them together until they feel dry. Soap and water are the best option if hands are visibly dirty. Avoid touching your eyes, nose, and mouth with unwashed hands. Avoid sharing personal household items You should not share dishes, drinking glasses, cups, eating utensils, towels, or bedding with otherpeople or pets in your home. After using [...] waiting room from getting infected or exposed. Askyour healthcare provider to call the local or [facility] health department. Persons who are placed underactive monitoring or facilitated self- monitoring should follow instructions provided by their localhealth department or occupational health professionals, as appropriate. [...] isolation precautions should be made on a gdcy-fp-fswl basis, in consultation with healthcare providers and [facility] health departments. Information on COVID-19 for [...] respiratory tract signs and symptoms. Ways to [place] with Anxiety & Stress It is normal to feel anxious or worried about COVID-19. You might feel sad about canceling celebrations and staying away from family and friends. Keep in mind that most people do not get severely ill from COVID-19. It is important to have a planin case you get sick to prevent spreading [...] an illness that was first found in [facility], in April 2019. It has since spread [...] seen in people before. This virus spreads bofvjg-wg-gwlwht through droplets from coughing and sneezing. It can also spreadwhen you are close to someone who is [...] water aren't available, use an alcohol-based hand lead man over all dies in pattern shop. Call 911 anytime you think you may [...] and studying this virus. Their websites contain themost up-to-date information. You'll also learn what to do if you think you may have been exposed tothe virus. U.S. Centers for Disease Control and Prevention (CDC): The CDC provides updated news about the disease and travel advice. The website also tells you how to prevent the spread of infection. www.cdc.gov World Health Organization (WHO): WHO offers information about the virus outbreaks. WHO also has travel advice. www.who.int Current as of: August 30, 2019 Content Version: 12.4 Goodreads. Care instructions adapted under license by your healthcare professional. If you have questions about a medical condition or this instruction, always ask your healthcare professional. [employer] disclaims any warranty or liability for your use of this information. General Recommendations for Routine Cleaning and Disinfection of Households Community members can practice routine cleaning of frequently touched surfaces (for example: tables, doorknobs, light switches, handles, desks, toilets, faucets, sinks) with household die storage clerk and EPA-registered disinfectants that are appropriate for [...] and impurities from surfaces. Cleaning does not killgerms, but by removing them, it lowers their numbers and the risk of spreading infection. Disinfecting refers to using chemicals to kill germs on surfaces. This process does not necessarilyclean dirty surfaces or remove germs, but by [...] appropriate. These supplies include tissues, paper towels, die storage clerk and EPA-registered disinfectants (see list link at [...] be used for other purposes. Consult the trimmer buffing wheel's instructions for cleaning and disinfection products used. [...] used if appropriate for the surface. Follow trimmer buffing wheel's instructions for application and proper ventilation. Check [...] water Products with EPA-approved emerging viral pathogens [facility] iconexternal icon are expected to be effective against COVID-19 based on data for harder to kill viruses. Follow the trimmer buffing wheel's instructions for all cleaning and disinfection products (e.g., concentration, application method and contact time, etc.). Soft (porous) surfaces such as carpeted floor, rugs, and drapes Remove visible contamination if present and clean with appropriate die storage clerk indicated for use on these surfaces. After cleaning: Launder items as appropriate in accordance with the trimmer buffing wheel's instructions. If possible, launder items using the [...] for other household purposes. Clean hands immediately aftergloves are removed. If no gloves are used when handling dirty laundry, be sure to wash hands afterwards. If possible, do not shake dirty laundry. This will minimize the possibility of dispersing virus through the air. Launder items as appropriate in accordance with the trimmer buffing wheel's instructions. If possible, launder items using the warmest appropriate water setting for the items and dry items completely. Dirty laundry from an ill person can be washed with other people's items. Clean and disinfect clothes hampers according to guidance above for surfaces. If possible, considerplacing a baggage handling supervisor that is either disposable (can be thrown away) or can be laundered. CDC has a list of EPA approved cleaning products on their website - https://www.cdc.gov/coronavirus/ 2019-ncov/community/home/cleaning-disinfection.html https://www.[employer]/Afsve-Tbwdbiettpp-Dbvkaelv-Products-List.pdf Grocery Stores with delivery and turkey picker services: [facility]: Free turkey picker at locations Delivery is $12.95 a month Website - [employer] [place]: Sand Mixer Machine $2.95 (1st order is free) Delivery is $14.95 Website - [employer] Rissa Weiner: grinder setup operator is free Delivery is $5.95 Website - [employer]: grinder setup operator is $4.95 Delivery is $9.95 Website - [employer]: grinder setup operator is $4.95 Delivery is $9.95 Website - [employer]: Can be ordered for delivery and turkey picker with Alex and Ani Website - [employer]: Free deliver for first 3 orders of $35 or more Website - aldiTraxian [employer] Will deliver from [facility], [employer], [employer], and [employer]. Annual membership is $99 Monthly membership is $14 * Attachments The following attachments cannot be sent through Care Everywhere. * Common Problems (Citizen Of [place]) documented in this [facility]02-20-2023 Note* Care Coordination - Ramona Reyes RN - 07/20/2022 12:36 PM EST 26 year old admitted for induction of labor for di/di twins. Vaginal delivery. History of THC. Patient states she used during . Negative at delivery. Social service referral. Explained Marijuana use during can be harmful to your baby's health. The chemicals in marijuana (in particular, THC) pass through your system to your baby and can negatively affect your baby's development.Some research shows that using marijuana while you are can cause health problems in newborns-- including low weight and developmental problems. Research shows marijuana use during may make it hard for your child to pay attention or to learn, these issues may only become noticeable as your child grows older Chemicals from marijuana can be passed to your baby through breastmilk. THC is stored in fat and is slowly released over time, meaning an could be exposed fora longer period of time. Patient is independent [...] depression. It is common to have blues. Thisis a normal response to many of the hormonal changes, stress and lack of sleep that go with raisinga and physically recovering from the . Don't [...] home. Denies any concerns at this time. [id number] Note* Care Coordination - Ramona Reyes RN - 07/20/2022 12:36 PM EST 26 year old admitted for induction of labor for di/di twins. Vaginal delivery. History of THC. Patient states she used during . Negative at delivery. Social service referral. Explained Marijuana use during can be harmful to your baby's health. The chemicals in marijuana (in particular, THC) pass through your system to your baby and can negatively affect your baby's development.Some research shows that using marijuana while you are can cause health problems in newborns-- including low weight and developmental problems. Research shows marijuana use during may make it hard for your child to pay attention or to learn, these issues may only become noticeable as your child grows older Chemicals from marijuana can be passed to your baby through breastmilk. THC is stored in fat and is slowly released over time, meaning an could be exposed fora longer period of time. Patient is independent [...] depression. It is common to have blues. Thisis a normal response to many of the hormonal changes, stress and lack of sleep that go with raisinga and physically recovering from the . Don't [...] home. Denies any concerns at this time. [facility]02-20-2023 Obstetrics Note* Note - Kathy Hernandez RN - 07/20/2022 11:10 AM EST Met with patient to check in. Patient plans to exclusively pump instead of latching baby. Patient has been pumping and feeding the breastmilk to babies, but is still needing to supplement. Patient iscomfortable with this plan, and has been giving babies 30ml of formula or breastmilk per feed. Reminded patient that we are here to help, even when they are discharged, reviewed our phone number, andencouraged patient to call with questions, or if she would like to join us in group. Patient deniesfurther questions. Will continue to monitor and encourage. [facility]02-19-2023 Obstetrics Note* Note - Ju Adam RN - 07/19/2022 12:00 PM EST PT seen regarding of full term twins. [...] wide latch. Baby with off and on latching,but no consistent, rhythmic suckling. Baby appears very [...] milk production discussed. Pt told to call [facility] tomorrow to obtain insurance covered breast pump. Family shown how to use wall touch pad to call for LC. Pt and family receptive to all education. [facility] [id number] Note* Significant Event - Linwood Garcia DO - 07/18/2022 9:02 PM EST Notified by RN of increased bleeding and [...] (!) 151/102 Pulse: 75 Resp: Temp: SpO2: [facility]qj[facility]y06-88-8469 Note* Significant Event - Linwood Garcia DO - 07/18/2022 9:02 PM EST Notified by RN of increased bleeding and [...] (!) 151/102 Pulse: 75 Resp: Temp: SpO2: [facility] CenterPfbfnr42-51-0209 Plan of care note* Care Plan - Lucy Bergman RN - 07/18/2022 8:25 PM EST Problem: Vaginal or Section Goal: and maternal [...] other facility with appropriate resources Outcome: Completed [id number] Labor and delivery summary note* L&D Delivery Note - Linwood Garcia DO - 07/18/2022 7:54 PM EST Images from the original note were not included. Vaginal Delivery Note Department of Obstetrics and Gynecology Patient: Catalina Marvin : 1995 Date of delivery: 07/18/2022 Pre-operative Diagnosis: Catalina Santiago at 38w1d 1. Term 2. Di/Di Twins 3. PreEwoSF Post-operative Diagnosis: Live Born female, Live Born female Delivering Diamond Sizer And Grader & Film Printer(s): Dr. Dolly Saldivar; Dr. Linwood Garcia Infant Information: Information for the patient's : Thomas Marvin ONE [[id number]] Information for the patient's : Thomas Marvin TWO [[id number]] Information for the patient's : Thomas Marvin ONE [[id number]] Information for the patient's : Thomas Marvin TWO [[id number]] Description: normalx2 Meconium Noted: No Anesthesia: epidural [...] OR for delivery. Code declan was called. She was known to be GBS negative and received no prophylaxis. After pushing with contractions the head delivered Cephalic, left occiput anterior over an intact perineum. A nuchal cord was not present. The anterior, then posterior shoulder delivered easilyand atraumatically followed by the rest of the infant. The was placed on the maternal abdomen and attended by the RN for evaluation. The was stimulated and dried. The cord was clamped an d cut. Baby B was then evaluated and [...] Rubella Immunity Status: No results found for: RUBELLADANIEL Garcia DO 07/18/2022, 7:55 PM Associated attestation - Dolly Saldivar MD - 07/18/2022 10:57 PM EST Procedures or Surgery: I was present for all raphael elements of the procedure or surgery as described in the resident note. [facility] [id number] NoteEpidural Block Time Out: 07/18/2022 3:23 AM Patient location during procedure: OB Start time: 07/18/2022 3:25 AM End time: 07/18/2022 3:34 AM Reason for block: labor analgesia Staffing Performed: DISTRIBUTING CLERK Resident/DISTRIBUTING CLERK: Akash Eubanks APRN - DISTRIBUTING CLERK Preanesthetic Checklist Completed: patient identified, IV checked, [...] saline Guidance: landmark technique Needle Needle type: 3TIER Needle gauge: 17 G Needle length: 9 cm Needle insertion depth: 6.5 cm Catheter type: multi-orifice Catheter size: 19 G Catheter at skin depth: 13 cm Catheter securement method: surgical tape, liquid medical adhesive and clear occlusive dressing Test dose: negative Medications Administered lidocaine-EPINEPHrine (Xylocaine W/EPI) 1.5 %-1:[id number] injection - Epidural 1.5 mg - 07/18/2022 3:30:00 AM Assessment Block outcome: pain improved Number of attempts: 1 Procedure assessment: patient tolerated procedure well with no immediate [facility] NoteLabor Progress Note Date: 07/18/2022 Time: 12:12 AM Subjective: Catalina Marvin is a 26 y.o. female at 38w1d admitted for IOL-Di/Di twins Complications: Di/Di PreEwoSF SVE on admission: /-2 GBS: []Pos []Neg []Unknown Cat I/Cat I with moderate variability and spon accels. Safety huddle called due to difficult time getting 20min of both twins on the monitor. senior engineering specialist, , primary RN present and in agreement. FREDERIC ROCK, DO 07/18/2022 12:17 AM Patient not feeling well, having headache at this time and nausea. BP elevated. PreE labs pending. No SOB, RUQ pain or vision changes. Will continue to monitor. FREDERIC ROCK, DO 07/18/2022 12:25 AM Cat I/Cat I with moderate variability and spon accels. Pit @4cc/hr. Will continue to titrate per protocol. Jassi every 6min. [facility]. FREDERIC ROCK, 07/18/2022 1:24 AM Cat I with moderate variability and spon accels for Twin A. Cat I with moderate variability and spon accels for Twin B. Pit @8cc/hr. Plan for AROM after epidural placement. Patient met criteria for PreEwoSF 2/2 gHTN with elevated UPC. Patient had headache that resolved with Reglan. [facility]. FREDERIC ROCK, 07/18/2022 3:47 AM AROM of twin A [...] accels throughout. Pit @14cc/hr. Jassi every 2-3min. [facility]. FREDERIC ROCKDO 07/18/2022 6:41 AM Cx:7/80/-2 FHT: cat I/cat I Kenly:q1-3min A/P: 1. IOL-Di/Di twins FHR cat I with moderate variability, spontaneous accels, normal baseline, no significant decels. Head feels asynclitic with more cervix on maternal right side. Patient repositioned. Pitocin at 14cc/hr. Continue to titrate per protocol. BP's normotensive to mild range. Continue to monitor. Cx: Defer FHT: Cat I/Cat I Kenly: q 2 min A/P: 1. IOL-Di/Di Twins/PrEwoSF: Both babies cat I. Epidural redosed at 1100. Pt comfortable at this time. No feeling any more pressure. BP normotensive to mild range. Pit @ 16cc/hr, titrate per protocol. CCM. Cervix 7-8/80/-2 FHT cat I/cat I Kenly: q1-3 min FHT cat I/cat I. Cervix [...] CCM. Cx: Defer FHT: Cat I/Cat I Kenly: q 5 min A/P: 1. IOL-Di/Di Twins, PreEwoSF: Both babies Cat I. Pt resting at this time. Will plan for recheck at next position change. Some coupling of contractions noted. Pitocin @ 18 ml/hr, titrate per protocol. BP mild range. CCM. Cx:10/100/+1 FHP: OA FHT: Cat I/Cat I Kenly:q 2-3 min A/P: 1. IOL-Di/Di Twins, PreEwoSF: [...] SVDs, please see delivery summary for details. [facility]02-18-2023 NotePatient: Catalina Marvin Procedure Information Date: 07/17/22 Procedure: Labor Analgesia [...] Patient is NPO: full stomach Additional Equipment [facility]02-18-2023 NoteObstetrical History and Physical CHIEF COMPLAINT: IOL-Di/Di HISTORY OF PRESENT ILLNESS: The patient is a 26 y.o. female at 38w0d OB History 3 Para 1 Term 1 AB 1 Living 1 SAB IAB 1 Ectopic Multiple Live Births 1 Patient presents with a chief complaint as above and is being admitted for induction Denies DFM/VB/LOF/MILLER/EpigastricPain/Visual changes Estimated Due Date: Estimated Date of Delivery: 07/31/22 PC-01 HARDSTOP. Current EGA is 38w0d Is this patient being delivered between 50q4a-25h9h weeks with an acceptable medical indication (obstetric, maternal, and/or )? YES: This patient is between 06q7y-96g0v and DOES have an acceptable indication(s) for [...] Vag-Spont EPI N MIRYAM 1 IAB 2017 Detailed OB History G1 SAB G2 TSVD [...] RDW 23.2 (H) 07/17/2022 (more content not included)...[facility] 07-17-2022 History and physical note* Frederic Rock DO - 07/17/2022 10:36 PM EST Obstetrical History and Physical CHIEF COMPLAINT: IOL-Di/Di HISTORY OF PRESENT ILLNESS: The patient is a 26 y.o. female at 38w0d OB History 3 Para 1 Term 1 AB 1 Living 1 SAB IAB 1 Ectopic Multiple Live Births 1 Patient presents with a chief complaint as above and is being admitted for induction Denies DFM/VB/LOF/MILLER/EpigastricPain/Visual changes Estimated Due Date: Estimated Date of Delivery: 07/31/22 PC-01 HARDSTOP. Current EGA is 38w0d Is this patient being delivered between 05h4l-96j1h weeks with an acceptable medical indication (obstetric, maternal, and/or )? YES: This patient is between 71f9f-86u5r and DOES have an acceptable indication(s) for [...] 500 mg as needed for indigestion or heartburn.07/17/2022 ferrous sulfate (FerrouSul) 325 (65 Fe) MG tablet Take 1 tablet (325 mg) by mouth 2 times daily. 60tablet 3 07/17/2022 omeprazole (PriLOSEC) [address] capsule Take 20 mg by mouth every morning (before breakfast). Do notcrush or chew. 07/16/2022 Vit-Fe Fumarate-FA ( VITAMIN [...] 2704g 41% growth US 07/03 -BPP 07/16 88 tHTN -BP mild range on admission -PreE labs pending Depression -Mood stable -Not on meds Discussed with Dr Reyes, who agrees with plan. FREDERIC ROCK DO 07/17/2022, 10:36 PM [facility] Work Phone: 1(971) 864-284302-17-2023 History and physical note* Frederic Rock DO - 07/17/2022 10:36 PM EST Obstetrical History and Physical CHIEF COMPLAINT: IOL-Di/Di HISTORY OF PRESENT ILLNESS: The patient is a 26 y.o. female at 38w0d OB History 3 Para 1 Term 1 AB 1 Living 1 SAB IAB 1 Ectopic Multiple Live Births 1 Patient presents with a chief complaint as above and is being admitted for induction Denies DFM/VB/LOF/MILLER/EpigastricPain/Visual changes Estimated Due Date: Estimated Date of Delivery: 07/31/22 -01 HARDSTOP. Current EGA is 38w0d Is this patient being delivered between 72c5m-27o7k weeks with an acceptable medical indication (obstetric, maternal, and/or )? YES: This patient is between 11y3g-74k8m and DOES have an acceptable indication(s) for [...] 500 mg as needed for indigestion or heartburn.07/17/2022 ferrous sulfate (FerrouSul) 325 (65 Fe) MG tablet Take 1 tablet (325 mg) by mouth 2 times daily. 60tablet 3 07/17/2022 omeprazole (PriLOSEC) [address] capsule Take 20 mg by mouth every morning (before breakfast). Do notcrush or chew. 07/16/2022 Vit-Fe Fumarate-FA ( VITAMIN PO) Take by mouth. 07/16/2022 REVIEW OF SYSTEMS: Const: Negative HEENT: Negative Resp: Negative CVS: Negative GI: Negative : Negative MSK: Negative Breast: Negative Skin: Negative Heme/Lymph:Negative Endo: Negative Neuro: Negative Psych: Negative PHYSICAL EXAM: Vitals: 07/17/222143 Resp: 20 Temp: 36.8 C (98.3 F) [...] 2704g 41% growth US 07/03 -BPP 07/16 8/8 tHTN -BP mild range on admission -PreE labs pending Depression -Mood stable -Not on meds Discussed with Dr Reyes, who agrees with plan. FREDERIC ROCK DO 07/17/2022, 10:36 PM documented in this [facility]02-17-2023 Plan of care note* Care Plan - Lucy Bergman RN - 07/17/2022 9:43 PM EST Problem: Vaginal or Section Goal: and maternal [...] other facility with appropriate resources Outcome: Progressing [facility] CenterOgizna22-13-4262 Telephone encounter Note* Telephone Encounter - Tarsha Thomspon RN - 07/16/2022 8:35 PM EST S: Patient 's mother spoke with CAC [...] the office during business hours. No further needsat this time. Patient's mother's instructed to call back with new or worsening symptoms. Reason for Disposition [1] Caller requesting NON-URGENT health information AND [2] PCP's office is the best resource Protocols used: Information Only Call - No [id number] [facility] CenterHjbjav95-60-0940 Miscellaneous Notes* Telephone Encounter - Tarsha Thompson RN - 07/16/2022 8:35 PM EST S: Patient 's mother spoke with CAC [...] the office during business hours. No further needsat this time. Patient's mother's instructed to call back with new or worsening symptoms. Reason for Disposition [1] Caller requesting NON-URGENT health information AND [2] PCP's office is the best resource Protocols used: Information Only Call - No [id number] documented in this [facility]02-16-2023 Evaluation + Plan note* Assessment & Plan Note - Dolly Saldivar MD - 07/16/2022 9:53 AM ESTAssociated Problem(s): Dichorionic diamniotic twin in second trimester [...] flips to breech after A delivers, breech extractionvs . Patient will discuss further with provider senior environmental practice leader during induction. [facility] [id number] Miscellaneous Notes* Assessment & Plan Note - Dloly Saldivar MD - 07/16/2022 9:53 AM ESTAssociated Problem(s): Dichorionic diamniotic twin in second trimester [...] flips to breech after A delivers, breech extractionvs . Patient will discuss further with provider senior environmental practice leader during induction. documented in this [facility]02-16-2023 History of Present illness Narrative* Dolly Saldivar MD - 07/16/2022 9:30 AM EST PLAN: Dichorionic diamniotic twin in second trimester [...] flips to breech after A delivers, breech extractionvs . Patient will discuss further with provider senior environmental practice leader during induction. ASSESSESMENT: Diagnosis Plan 1. Dichorionic [...] No follow-ups on file. documented in this [facility]02-03-2023 Hospital Discharge instructions* Discharge Instructions* Priya Dao DO - 07/03/2022 7:27 PM EST Follow up appointment with your doctor/boilermaker ship - Keep next scheduled appointment Activity - Normal Activity Call your doctor/boilermaker ship if you have: - leaking fluid - [...] visit on 07/03/22 . Priya Dao DO [facility] documented in this [facility]02-03-2023 History of Present illness Narrative* Priya Dao DO - 07/03/2022 5:21 PM EST Images from the original note were not included. The patient is a 26 y.o. 36w0d. OB History 3 Para 1 Term 1 AB 1 Living 1 SAB IAB 1 Ectopic Multiple Live Births 1 She is here for her third iron infusion. Iron Deficit (0.24 x Weight in kg prior to x Hgb deficit ([place] vs actual) + 500mg) = 538 Todays Dose: 138 (Maximum Dose 200mg) Remaining dose: 0 mg FHT Cat I/Cat I Patient to come back for subsequent infusion between 24hrs to one week from today Priya Dao DO 07/03/2022 7:06 PM documented in this [facility]02-03-2023 Evaluation + Plan note* Assessment & Plan Note - Genesis Polk MD - 07/03/2022 12:08 PM EST Associated Problem(s): Dichorionic diamniotic twin in second trimester 07/03/22 Pt would like to labor as twins are vtx x2. Baby A EFW >baby B. Discussed IOL at 38 weeks. Will need induction papers signed next week. [place] [facility] CenterLnjaoa49-72-4650 Miscellaneous Notes* Assessment & Plan Note - Genesis Polk MD - 07/03/2022 12:08 PM ESTAssociated Problem(s): Dichorionic diamniotic twin in second trimester 07/03/22 Pt would like to labor as twins are vtx x2. Baby A EFW >baby B. Discussed IOL at 38 weeks. Will need induction papers signed next week. [place] documented in this [facility]02-03-2023 History of Present illness Narrative* Jany Bansal MA - 07/03/2022 11:15 AM EST A substitute nurse was offered to be present during her exam. The patient: declined * Genesis Polk MD - 07/03/2022 11:15 AM EST Routine Office Visit: 3rd trimester 07/03/22 HPI: [...] Genesis Polk MD 07/03/22 documented in this [facility]02-01-2023 Telephone encounter Note* Telephone Encounter - Cipriano Lopez - 07/01/2022 4:59 PM EST Name of caller: Catalina Contact phone number: [phone] Relationship to Patient: patient Provider: Dr. Polk Practice: [facility] [employer] Chief Complaint/Reason for Call: Patient Catalina calling in and states that she does not want the appointments cancelled. Patient is still coming for her appointment on Wednesday07-03-2022 for U/S and AISHWARYA. Best time of day caller can be reached: Any Patient advised that office/PCP has 24-48 business hours to return their call: N/A [facility] CenterLbkfny23-94-9592 Miscellaneous Notes* Telephone Encounter - Cipriano Lopez - 07/01/2022 4:59 PM EST Name of caller: Catalina Contact phone number: [phone] Relationship to Patient: patient Provider: Dr. Polk Practice: [facility] [employer] Chief Complaint/Reason for Call: Patient Catalina calling in and states that she does not want the appointments cancelled. Patient is still coming for her appointment on Wednesday07-03-2022 for U/S and AISHWARYA. Best time of day caller can be reached: Any Patient advised that office/PCP has 24-48 business hours to return their call: N/A * Telephone Encounter - Enid Walton - 07/01/2022 4:23 PM EST Name of caller: zulay Contact phone number: [phone] Relationship to Patient: family member patient and mother Provider: Jakob Practice: [facility] Chief Complaint/Reason for Call: Pt mother calling because she needs the appointments for Wednesday cancelled due to pt's not having FMLA paperwork to miss work. Please advise. Best time of day caller can be reached: Any Patient advised that office/PCP has 24-48 business hours to return their call: * Telephone Encounter - Genesis Polk MD - 07/01/2022 12:44 PM EST Yes, pt needs the ultrasound as soon as possible. Please contact her to get this rescheduled rip * Telephone Encounter - Sylvie Jorge - 07/01/2022 12:22 PM EST Name of caller: Catalina Marvin Contact phone number: [phone] Relationship to Patient: patient Provider: Jakob Practice: [facility] Chief Complaint/Reason for Call: Pt called to cancel her US appt today for her TWINS. growth, BPP and AISHWARYA. She has another US on 07/10/2022 and the next availability for an US is 07/06/2022 at [place].Routine Visit on 07/03/2022 was not canceled. Will provider like pt to come in before 07/10/2022 for an US? Please advise. Best time of day caller can be reached: any Patient advised that office/PCP has 24-48 business hours to return their call: Yes documented in this [facility]02-01-2023 Telephone encounter Note* Telephone Encounter - Enid Walton - 07/01/2022 4:23 PM EST Name of caller: zulay Contact phone number: [phone] Relationship to Patient: family member patient and mother Provider: Jakob Practice: [facility] Chief Complaint/Reason for Call: Pt mother calling because she needs the appointments for Wednesday cancelled due to pt's not having FMLA paperwork to miss work. Please advise. Best time of day caller can be reached: Any Patient advised that office/PCP has 24-48 business hours to return their call: [facility]rvcke05-36-1341 Telephone encounter Note* Telephone Encounter - Genesis Polk MD - 07/01/2022 12:44 PM EST Yes, pt needs the ultrasound as soon as possible. Please contact her to get this rescheduled rip [facility] Work Phone: 1(355) 870-337802-01-2023 Telephone encounter Note* Telephone Encounter - Sylvie Jorge - 07/01/2022 12:22 PM EST Name of caller: Catalina Marvin Contact phone number: [phone] Relationship to Patient: patient Provider: Jakob Practice: [facility] Chief Complaint/Reason for Call: Pt called to cancel her US appt today for her TWINS. growth, BPP and AISHWARYA. She has another US on 07/10/2022 and the next availability for an US is 07/06/2022 at [place].Routine Visit on 07/03/2022 was not canceled. Will provider like pt to come in before 07/10/2022 for an US? Please advise. Best time of day caller can be reached: any Patient advised that office/PCP has 24-48 business hours to return their call: Yes [id number] Hospital Discharge instructions* Discharge Instructions* Christel Saldivar MD - 06/29/2022 10:18 PM EST Follow up appointment with your doctor/boilermaker ship - Keep next scheduled appointment Activity - Normal Activity Call your doctor/boilermaker ship if you have: - leaking fluid - [...] visit on 06/29/22 . Christel Saldivar MD [facility] documented in this [facility]01-30-2023 History of Present illness Narrative* Christel Saldivar MD - 06/29/2022 7:01 PM EST Images from the original note were not included. The patient is a 26 y.o. 35w3d. OB History 3 Para 1 Term 1 AB 1 Living 1 SAB IAB 1 Ectopic Multiple Live Births 1 She is here for her second iron infusion. Iron Deficit (0.24 x Weight in kg prior to x Hgb deficit ([place] vs actual) + 500mg) = 338 Todays Dose: 200 (Maximum Dose 200mg) Remaining dose: 138 mg FHT Cat I / Cat I Patient to come back for subsequent infusion between 24hrs to one week from today documented in this [facility]01-26-2023 Telephone encounter Note* Telephone Encounter - Kathy Bloom RN - 06/25/2022 7:31 PM EST S: Patient spoke with [facility] nurse regarding problem-vomiting B: Onset of symptoms/concern [...] she will go to [facility] Silvano aware. Reason for Disposition Patient sounds very sick or weak to the triager Protocols used: - Morning Sickness (Nausea and Vomiting of )-ADULT-[place] [facility] [id number] Miscellaneous Notes* Telephone Encounter - Kathy Bloom RN - 06/25/2022 7:31 PM EST S: Patient spoke with [facility] nurse regarding problem-vomiting B: Onset of symptoms/concern [...] she will go to [facility]vano aware. Reason for Disposition Patient sounds very sick or weak to the triager Protocols used: - Morning Sickness (Nausea and Vomiting of )-ADULT-[place] documented in this [facility]01-26-2023 Telephone encounter Note* Telephone Encounter - Rhonda Smith RN - 06/25/2022 12:50 PM EST Patients mother is calling in and wants [...] a US scheduled at 345 today. Mother isasking what appointments her daughter has scheduled and when they are. Mother states she is going to be a grandmother and she should be privledged to all information. Reason for Disposition [1] Caller requesting NON-URGENT health information AND [2] PCP's office is the best resource Protocols used: Information Only Call - No [id number] [facility] [id number] Miscellaneous Notes* Telephone Encounter - Rhonda Smith RN - 06/25/2022 12:50 PM EST Patients mother is calling in and wants [...] a US scheduled at 345 today. Mother isasking what appointments her daughter has scheduled and when they are. Mother states she is going to be a grandmother and she should be privledged to all information. Reason for Disposition [1] Caller requesting NON-URGENT health information AND [2] PCP's office is the best resource Protocols used: Information Only Call - No [id number] documented in this [facility]01-26-2023 Telephone encounter Note* Telephone Encounter - Melissa Vernon RN - 06/25/2022 10:38 AM EST S [facility] B CAC RN returning call to pt at [phone]. A Pt states she is 34 weeks with twins and last night she rec'd a iron transfusion for her low iron. Pt started vomiting after infusion but was sent home. Pt has had over 6 episodes of vomiting sinceyesterday. Pt states she feels very weak and she passed out this morning when she got up to go to the BR. Pt did not hit her head or abdomen and thinks she only passed out for a few mins. Pt has onlykept a few sips of water down this [...] date are you expecting to deliver? EDC 3-3-23 8. MEDICATIONS: What medications are you taking? (e.g., vitamins, iron) PNV and Iron 9. OTHER SYMPTOMS: Do you have any other symptoms? Dizziness and lightheaded; Protocols used: - Morning Sickness (Nausea and Vomiting of )-ADULT-[place] [facility] [id number] Miscellaneous Notes* Telephone Encounter - Melissa Vernon RN - 06/25/2022 10:38 AM EST S [facility]. B CAC RN returning call to pt at [phone]. A Pt states she is 34 weeks with twins and last night she rec'd a iron transfusion for her low iron. Pt started vomiting after infusion but was sent home. Pt has had over 6 episodes of vomiting sinceyesterday. Pt states she feels very weak and she passed out this morning when she got up to go to the BR. Pt did not hit her head or abdomen and thinks she only passed out for a few mins. Pt has onlykept a few sips of water down this [...] and Vomiting of )-ADULT-[place] documented in this [facility]01-25-2023 History of Present illness Narrative* Jarred Simon DO - 06/24/2022 5:36 PM EST Images from the original note were not included. The patient is a 26 y.o. 34w5d. OB History 3 Para 1 Term 1 AB 1 Living 1 SAB IAB 1 Ectopic Multiple Live Births 1 She is here for her first iron infusion. Iron Deficit (0.24 x Weight in kg prior to x Hgb deficit ([place] vs actual) + 500mg) = 538 Todays Dose: 200 (Maximum Dose 200mg) Remaining dose: 338 mg FHT Cat I /Cat I Patient to come back for subsequent infusion between 24hrs to one week from today JARRED SIMON DO 06/24/2022 9:35 PM documented in this [facility]01-25-2023 Telephone encounter Note* Telephone Encounter - Karina Sylvester LPN - 06/24/2022 12:22 PM EST Mother called to follow up regarding infusion at [place]. Advised in process however this may take several days. Mother advised daughter is feeling weak. Mother advised pt needs to report to triage at [facility] as soon as she can. Mother agreed and will have her daughter report there. Her will take her as soon as he is off work. [facility] [id number] Miscellaneous Notes* Telephone Encounter - Karina Sylvester LPN - 06/24/2022 12:22 PM EST Mother called to follow up regarding infusion at [place]. Advised in process however this may take several days. Mother advised daughter is feeling weak. Mother advised pt needs to report to triage at [facility] as soon as she can. Mother agreed and will have her daughter report there. Her will take her as soon as he is off work. * Telephone Encounter - Karina Sylvester LPN - 06/24/2022 11:35 AM EST Received infusion form from [facility].Scanned to [employer]. This will require a prior authorization . Will route to Dr. Saldivar to complete the form. Will need an icd and procedure code before prior authorization can be completed. * Telephone Encounter - Karina Sylvester LPN - 06/24/2022 10:57 AM EST Spoke with [place] [facility]. They will fax the order to the office. Will fax back once completed. Mother notified. * Telephone Encounter - Tito De Los Santos - 06/24/2022 9:46 AM EST Name of caller: Zulay Contact phone number: [phone] Relationship to Patient: family member patient and mother Provider: Dr. Saldivar Practice: OBGYN Location Chief Complaint/Reason for Call: Pts mother is calling again to check on the status of their request for pt to have infusion done at [facility] (see nurse triage message from 06.23.2022) She states that yesterday when they spoke she was given the wrong fax number and needs to update that to . She states that this needs done rip. Please advise. Best time of day caller can be reached: Any Patient advised that office/PCP has 24-48 business hours to return their call: No documented in this encounterSDoctors [id number] Telephone encounter Note* Telephone Encounter - Karina Sylvester LPN - 06/24/2022 11:35 AM EST Received infusion form from [facility].Scanned to media. This will require a prior authorization . Will route to Dr. Saldivar to complete the form. Will need an icd and procedure code before prior authorization can be completed. [facility] [id number] Telephone encounter Note* Telephone Encounter - Karina Sylvester LPN - 06/24/2022 10:57 AM EST Spoke with [place] [facility]. They will fax the order to the office. Will fax back once completed. Mother notified. [facility] [id number] Telephone encounter Note* Telephone Encounter - Tito De Los Santos - 06/24/2022 9:46 AM EST Name of caller: Zulay Contact phone number: [phone] Relationship to Patient: family member patient and mother Provider: Dr. Saldivar Practice: [facility] Location Chief Complaint/Reason for Call: Pts mother is calling again to check on the status of their request for pt to have infusion done at [facility] (see nurse triage message from 06.23.2022) She states that yesterday when they spoke she was given the wrong fax number and needs to update that to . She states that this needs done rip. Please advise. Best time of day caller can be reached: Any Patient advised that office/PCP has 24-48 business hours to return their call: No [facility] [id number] Telephone encounter Note* Telephone Encounter - Sujatha Freedman RN - 06/23/2022 5:09 PM EST S: Patient's mom spoke with [facility] nurse regarding patient iron infusion. B: Onset of symptoms/concern today. A: Patient's mom reports they did not receive call back from office regarding having iron infusion at [facility]. Patient would like to have the [...] understands care advice. No further needs at thistime. Patient instructed to call back with new or worsening symptoms. [facility] [id number] Miscellaneous Notes* Telephone Encounter - Sujatha Freedman RN - 06/23/2022 5:09 PM EST S: Patient's mom spoke with [facility] nurse regarding patient iron infusion. B: Onset of symptoms/concern today. A: Patient's mom reports they did not receive call back from office regarding having iron infusion at [facility]. Patient would like to have the [...] understands care advice. No further needs at thistime. Patient instructed to call back with new or worsening symptoms. * Telephone Encounter - Fernanda Cox RN - 06/23/2022 2:17 PM EST S: Patient's mom spoke with [facility] nurse regarding patient SAPNA 07/30/22 B: Onset of symptoms for couple days. A: Seen in the ER yesterday at [facility] Mom asking if she can get her iron infusion can be done at [facility], , fax [phone]. Mom reports she is very disoriented d/t iron being low and with twins. Was to get it down at [facility] and [place] is closer for her. Called the patient: She states that [place] is an hour away, that hospital, is 10 minutes away , patient feels very tired, no SOB R: Spoke with Elina at the office, and will send encounter to the MD to review and call the patientback. Patient's mom understands care advice. No further needs at this time. Patient's mom instructed to call back with new or worsening symptoms. Reason for Disposition Caller has URGENT medicine question about med that PCP or specialist prescribed and triager unable to answer question Protocols used: Medication Question [id number] documented in this [facility]01-24-2023 Telephone encounter Note* Telephone Encounter - Sujatha Freedman RN - 06/23/2022 4:52 PM EST Reason for Disposition Caller has already spoken with another triager or PCP AND has further questions AND triager able toanswer questions. Protocols used: No Contact or Duplicate Contact [id number] [facility] [id number] Miscellaneous Notes* Telephone Encounter - Sujatha Freedman RN - 06/23/2022 4:52 PM EST Reason for Disposition Caller has already spoken with another triager or PCP AND has further questions AND triager able toanswer questions. Protocols used: No Contact or Duplicate Contact [id number]-[id number] documented in this [facility]01-24-2023 Telephone encounter Note* Telephone Encounter - Tito De Los Santos - 06/23/2022 4:44 PM EST Error [facility] [id number] Miscellaneous Notes* Telephone Encounter - Tito De Los Santos - 06/23/2022 4:44 PM EST Error documented in this encounterSDoctors [id number] Telephone encounter Note* Telephone Encounter - Fernanda Cox RN - 06/23/2022 2:17 PM EST S: Patient's mom spoke with [facility] nurse regarding patient SAPNA 07/30/22 B: Onset of symptoms for couple days. A: Seen in the ER yesterday at [facility] Mom asking if she can get her iron infusion can be done at [facility], , fax [phone]. Mom reports she is very disoriented d/t iron being low and with twins. Was to get it down at [facility] and [place] is closer for her. Called the patient: She states that [place] is an hour away, that hospital, is 10 minutes away , patient feels very tired, no SOB R: Spoke with Elina at the office, and will send encounter to the MD to review and call the patientback. Patient's mom understands care advice. No further needs at this time. Patient's mom instructed to call back with new or worsening symptoms. Reason for Disposition Caller has URGENT medicine question about med that PCP or specialist prescribed and triager unable to answer question Protocols used: Medication Question [id number] [facility] [id number] Telephone encounter Note* Telephone Encounter - Elkin Vinson - 06/23/2022 10:59 AM EST Message released to patient as written. Patient's further questions if applicable: no Were all questions from office addressed or relayed to the patient from encounter: yes [facility] [id number] Miscellaneous Notes* Telephone Encounter - Elkin Vinson - 06/23/2022 10:59 AM EST Message released to patient as written. Patient's further questions if applicable: no Were all questions from office addressed or relayed to the patient from encounter: yes * Telephone Encounter - Lucia Rolon LPN - 06/23/2022 10:56 AM EST Left message to return call * Telephone Encounter - Lucia Rolon LPN - 06/23/2022 10:55 AM EST ----- Message from Dolly Saldivar MD sent at 06/23/2022 10:35 AM EST ----- Let pt know she passed her glucola. Her hgb 8.7, which is lower then what it was earlier in . I would advise an iron infusion at triage. She can go anytime. Typically she will need to get 2-3 infusions over a few days- weeks time documented in this encounterSDoctors [id number] Telephone encounter Note* Telephone Encounter - Lucia Rolon LPN - 06/23/2022 10:56 AM EST Left message to return call [facility] CenterPwblfz32-09-2013 Telephone encounter Note* Telephone Encounter - Lucia Rolon LPN - 06/23/2022 10:55 AM EST ----- Message from Dolly Saldivra MD sent at 06/23/2022 10:35 AM EST ----- Let pt know she passed her glucola. Her hgb 8.7, which is lower then what it was earlier in . I would advise an iron infusion at triage. She can go anytime. Typically she will need to get 2-3 infusions over a few days- weeks time [facility] [id number] Hospital Discharge instructions* Discharge Instructions* Donna Gray MD - 06/22/2022 3:21 PM EST Follow up appointment with your doctor/boilermaker ship - Keep next scheduled appointment Activity - Normal Activity Call your doctor/boilermaker ship if you have: - leaking fluid - [...] related visit on @[email or web address]@. Donna Gray MD [facility] documented in this [facility]01-23-2023 History of Present illness Narrative* Donna Gray MD - 06/22/2022 3:11 PM EST Images from the original note were not included. Department of Obstetrics and Gynecology Labor and Delivery Triage Note CHIEF COMPLAINT: Pain between contractions HISTORY OF PRESENT ILLNESS: The patient is a 26 y.o. 34w3d with twins presenting for pain in the low abdomen that radiates intothe groin. She states that this pain is [...] Pain assessment and plan: None DISCUSSED WITH PNC PROVIDER: Dr. Lucero DISPOSITION: Discharge to Home Associated attestation - Andre Foreman III, MD - 06/22/2022 3:28 PM EST Hospital Care (Independent): I independently saw and evaluated the patient. I agree with the findings and plan of care as documented in the resident's note. documented in this [facility]01-23-2023 Telephone encounter Note* Telephone Encounter - Linsey Herzog RN - 06/22/2022 11:44 AM EST S: Patient called the [facility] [place] with complaint of Pt is 34 wk's [...] labor and delivery states she [facility] R: [facility] labor and delivery Message to the office for review by the provider and needs recommendation from Provider for treatment going forward. Reason for Disposition MODERATE-SEVERE abdominal pain Protocols used: - Labor - [id number] [facility] [id number] Miscellaneous Notes* Telephone Encounter - Linsey Herzog RN - 06/22/2022 11:44 AM EST S: Patient called the [facility] access center with complaint of Pt is [...] labor and delivery states she will [facility] R: [facility] labor and delivery Message to the office for review by the provider and needs recommendation from Provider for treatment going forward. Reason for Disposition MODERATE-SEVERE abdominal pain Protocols used: - Labor - [id number]-[id number]-QK documented in this [facility]01-20-2023 Hospital Discharge instructions* Discharge Instructions* Frederic Rock DO - 06/19/2022 7:41 PM EST Follow up appointment with your doctor/boilermaker ship - Keep next scheduled appointment Activity - Normal Activity Call your doctor/boilermaker ship if you have: - leaking fluid - [...] visit on 06/19/22 . FREDERIC ROCK DO [facility] documented in this [facility]01-20-2023 History of Present illness Narrative* Frederic Rock DO - 06/19/2022 5:36 PM EST Department of Obstetrics and Gynecology Labor and [...] 500 mg as needed for indigestion or heartburn.Historical Provider, ferrous sulfate (FerrouSul) 325 (65 Fe) MG tablet Take 1 tablet (325 mg) by mouth 2 times daily. 05/28/22 09/25/22 Mark Dowd MD omeprazole (PriLOSEC) [address] capsule Take 20 mg by mouth every morning (before breakfast). Do notcrush or chew. Historical Provider, ondansetron (Zofran) 4 [...] VSS. VTX/VTX on BSUS. Will continue to [facility]. Marion Mckoy, DO 06/19/2022 5:39 PM Cat I FHT. No decels noted. Will send home with return precautions. FREDERIC ROCK, DO 06/19/2022 7:40 PM IMPRESSION: Reactive NST , Cat I FHT Pain assessment and plan: None DISCUSSED WITH C PROVIDER: Dr. Dowd DISPOSITION: Discharge to Home Associated attestation - Aleisha Bertrand MD - 06/19/2022 7:47 PM EST Hospital Care (Independent): I independently saw and evaluated the patient. I agree with the findings and plan of care as documented in the resident's note. documented in this [facility]01-20-2023 Evaluation + Plan note* Assessment & Plan Note - Dolly Saldivar MD - 06/19/2022 4:43 PM ESTAssociated Problem(s): care, antepartum Reviewed si/sx of labor, FM and kick counts, and when to go to L&D. Does not need to call office before going to triage. [facility] [id number] Miscellaneous Notes* Assessment & Plan Note - Dolly Saldivar MD - 06/19/2022 4:43 PM ESTAssociated Problem(s): care, antepartum Reviewed si/sx of labor, FM and kick counts, and when to go to L&D. Does not need to call office before going to triage. * Assessment & Plan Note - Dolly Saldivar MD - 06/19/2022 4:40 PM ESTAssociated Problem(s): Dichorionic diamniotic twin in second trimester [...] conversation short to send her to triage). * Assessment & Plan Note - Dolly Saldivar MD - 06/19/2022 4:26 PM ESTAssociated Problem(s): Anemia during taking iron, feels lightheaded at times, will recheck hgb and potential IV iron if needed Advised increasing hydration and using compression stockings documented in this [facility]01-20-2023 Evaluation + Plan note* Assessment & Plan Note - Dolly Saldivar MD - 06/19/2022 4:40 PM ESTAssociated Problem(s): Dichorionic diamniotic twin in second trimester [...] conversation short to send her to triage). [facility] [id number] Evaluation + Plan note* Assessment & Plan Note - Dolly Saldivar MD - 06/19/2022 4:26 PM ESTAssociated Problem(s): Anemia during taking iron, feels lightheaded at times, will recheck hgb and potential IV iron if needed Advised increasing hydration and using compression stockings [facility] [id number] History of Present illness Narrative* Dolly Saldivar MD - 06/19/2022 4:15 PM EST PLAN: Anemia during taking iron, feels lightheaded [...] for AISHWARYA, BPP weekly. documented in this [facility]01-06-2023 History of Present illness Narrative* Genesis Polk MD - 06/05/2022 2:15 PM EST Routine Office Visit 06/05/22 HPI: Catalina Marvin is a 26 y.o. who presents for routine OB visit at 32w0d. SAPNA: Estimated Date of Delivery: 07/31/22 She denies CTX, LOF, VB, DFM. PHYSICAL EXAM: Assessment Heart Rate: US/US, Movement: Present Vitals Weight: 150 lb (68 kg),BP: 128/80 Well appearing, Alert & oriented Skin [...] encounter. Follow Up: 06/19/2022 documented in this [facility]09-06-2022 Hospital Discharge instructions* Discharge Instructions* Domitila Johnson PA-C - 02/03/2022 5:49 PM EDT No evidence of trauma to the babies on ultrasound. Good heart rates. Lab work is unremarkable. Recommend Tylenol every 6 hours as needed for pain relief. Follow-up with your PRINCIPAL SOLUTIONS ARCHITECT in 2 to 3 days for reevaluation. Return to the emergency department immediately if any new or worsening symptoms present. * Attachments The following attachments cannot be sent through Care Everywhere. * : Abdominal Pain (Citizen Of [place]) documented in this [facility] Work Phone: [phone] Miscellaneous Notes* Telephone Encounter - Erin Jara RN - 02/03/2022 1:09 PM EDT Pos HT. HCG pended. Thanks, Erin Jara RN documented in this [facility]Pome[facility]07[facility]-20[facility] Note. MICRO - Microbiology PROCEDURE: Urine Culture [*1] SOURCE: Urine, Clean Catch BODY SITE: COLLECTED DATE/TIME: 12/09/2021 20:17 EDT RECEIVED DATE/TIME: 12/10/2021 15:15 EDT START DATE/TIME: 12/10/2021 15:15 EDT FREE TEXT SOURCE: FINAL REPORTS Final Report [] Verified Date/Time/Personnel: 12/11/2021 14:24 EDT >100,000 cfu/ml Mixed growth consistent with normal urogenital whitley. Performing Locations *1: This test was performed at: [facility], [address] [place] [address], [id number]- , [facility] ([place])12-10-2021 Hospital Discharge instructions Patient Education 12/09/2021 22:56:07 AA Leighann GUADARRAMA (CUSTOM) Live twin gestation with an estimated [...] Document Reviewed: 05/18/2014 ExitCare Patient Information 2015 [employer]. This information is not intended to replace advicegiven to you by your health care provider. [...] and water are not available, use alcohol-based lead man over all dies in pattern shop to keep from spreading the infection to others. Wash your hands for at least 20 seconds. Humming the happy birthday song twice while you wash is aneasy way to make sure you've washed for 20 seconds. Wash your hands after using the toilet, before and after preparing food, before eating food, after changing a diaper, cleaning a wound, caring for a sick person, and blowing your nose, coughing, or sneezing. You should also wash your hands after caring for someone who is sick, touching pet food, ortreats, and touching an animal, or animal waste. [...] Yellow color of the eyes or skin 1508-2358 [employer]. [address] [place] [address], [place] [address]. All rights reserved. This information is not intended as a substitute for professional medical care. Always follow yourcle[facility] hospitalcare professional's instructions. 12/09/2021 22:55:42 Possible Miscarriage (Threatened ) Possible Miscarriage (Threatened ) You may be having a miscarriage. Common signs of a miscarriage are pain and bleeding. A small amount of bleeding can be normal during the first 3 months of . Often the pain and bleeding stop, and you have a normal pregnancyand baby. But heavy bleeding or severe cramping can be an early sign of miscarriage. A miscarriage means an unexpected loss of your . At this time, your healthcare provider doesn t know whether you will have a miscarriage, or if things will clear up and your will continue normally. This can be emotionally difficult. Thereis little that can be done to change [...] miscarriage. These activities are usually safe unless youhave pain or bleeding or your doctor tells you to stop. Even minor falls won t cause a miscarriage.Miscarriages happen because things were not developing as they were supposed to. No medicine can prevent a miscarriage. Again, understand that things are uncertain right now. You may still have some bleeding. This may be light spotting or like a period, and you may pass some tissue. You may have some cramping. This iswhy follow-up care is important. Home care To [...] container and bring it to your provider. 2255-0156 [employer]. [address] [place] [address], [place] [address]. All rights reserved. This information is not intended as a substitute for professional medical care. Always follow yourhealthcare professional's instructions. Follow Up Care 12/09/2021 19:12:00 With:TYRESE DOMINGUEZ DO Address: [address] [place] [phone]- [phone] When:2-4 days With:Follow up with primary care provider Address: When:2-4 days Comments:Call your OB provider to notify them of your recent ED visit. Schedule appointment as soon as possible With:Call LAVONNE Elam Pt. Refferral [phone] Address:Unknown When:2-4 days [facility] 07-12-2022 Note Discharge Instructions Thank you for allowing [facility] to assist you with your healthcare needs. The following is importantdischarge information regarding your hospital visit. Diagnosis from Today's Visit Nausea and vomiting Acute pelvic pain Pelvic pain Vomiting What to Do Next Instructions from Your Care Team Take Phenergan as needed for nausea. Drink plenty of fluids. Take Keflex as prescribed for asymptomatic bacteriuria. Follow-up with your PRINCIPAL SOLUTIONS ARCHITECT or Dr. Canas of PR[employer] ARCHITECT. Return the emergency department if you have worsening symptoms, unable to eat or drink, vaginal bleeding, abdominal pain, or any other care concern. No qualifying data available. Post Acute Orders No qualifying data available. You Need to Schedule the Following Appointments Follow Up with TYRESE DOMINGUEZ DO When Within 2-4 days Where: [address] [place] [phone] Follow Up with Follow up with primary care provider When Within 2-4 days Why: Call your OB provider to notify them of your recent ED visit. Schedule appointment as soon as possible Where: Follow Up with Call AMB New Pt. Refferral [phone] When Within 2-4 days Allergies [facility] Medications Please ask your primary doctor or pharmacist before taking any other medication not listed, including over the counter drugs, herbal medications, vitamins and or supplements as they may interact withyo home medications. What How Much When Why [...] Document Reviewed: 05/18/2014 ExitCare Patient Information 2015 [employer] This information is not intended to replace advicegiven to you by your health care provider. [...] and water are not available, use alcohol-based lead man over all dies in pattern shop to keep from spreading the infection to others. Wash your hands for at least 20 seconds. Humming the happy birthday song twice while you wash is aneasy way to make sure you've washed for 20 seconds. Wash your hands after using the toilet, before and after preparing food, before eating food, after changing a diaper, cleaning a wound, caring for a sick person, and blowing your nose, coughing, or sneezing. You should also wash your hands after caring for someone who is sick, touching pet food, ortreats, and touching an animal, or animal waste. [...] Yellow color of the eyes or skin 8650-8182 [employer]. [address] [place] [address]. All rights reserved. This information is not intended as a substitute for professional medical care. Always follow yourhealthcare professional's instructions. Possible Miscarriage (Threatened ) You may be having a miscarriage. Common signs of a miscarriage are pain and bleeding. A small amount of bleeding can be normal during the first 3 months of . Often the pain and bleeding stop, and you have a normal pregnancyand baby. But heavy bleeding or severe cramping can be an early sign of miscarriage. A miscarriage means an unexpected loss of your . At this time, your healthcare provider doesn t know whether you will have a miscarriage, or if things will clear up and your will continue normally. This can be emotionally difficult. Thereis little that can be done to change [...] miscarriage. These activities are usually safe unless youhave pain or bleeding or your doctor tells you to stop. Even minor falls won t cause a miscarriage.Miscarriages happen because things were not developing as they were supposed to. No medicine can prevent a miscarriage. Again, understand that things are uncertain right now. You may still have some bleeding. This may be light spotting or like a period, and you may pass some tissue. You may have some cramping. This iswhy follow-up care is important. Home care To [...] container and bring it to your provider. [phone] [employer]. [address] [place] [address]. All rights reserved. This information is not intended as a substitute for professional medical care. Always follow yourhealthcare professional's instructions. Additional Information VACCINATE! IT SAVES LIVES! Members of the community who have not yet received the COVID-19 vaccine and would like to receive it can visit one of [facility] vaccine clinics. There are many vaccine clinic locations within the [facility]. For locations and available times, please visit [email or web address]. It is important to note that some COVID mobile vaccine clinics are held outdoors and may be canceled in rainy orstormy conditions. To learn more about pediatric vaccinations (ages 5-11), we invite you to visit the [facility] webpage. [email or web address] learn more about the COVID-19 vaccine, we invite you to visit the [facility] website for a list of frequently asked questions. [email or web address] [facility] Patient Portal Access Instructions: Stay connected with your healthcare team and access your personal medical information anytime with the [facility] Patient Portal. If you would like a full copy of your medical records please contact the [facility] Medical Records Department Wednesday through Wednesday between 8a.m. and 4:30p.m. Please follow the directions below to access the portal: 1.Access the email account you provided upon registration to the [facility].2.Look for an invitation email from [facility].3.Open the email and access the invitation link: Accept Invitation to [employer].Fill in the required thompson to create your account. Sign into [email or web address] with your username and password that you [...] you will allow to register on the [facility] Patient Portal for access to your information. You can also access the [facility] Patient Portal on the [employer]. Simply click on Health Records under [employer] and then click on the [employer] logo. HOW TO SAFELY DISPOSE OF PRESCRIPTION MEDICATIONS Please use one of the following methods to safely dispose of your unused medications. 1.Use a drug disposal kit: the drug disposal pouch allows you to safely discard your old and unuseddrugs. Ask your nurse to give you one when you are discharged.2.Visit a local take-back location: Many local pharmacies and police departments have programs that collect old and unwanted prescriptiondrugs. Call your local pharmacy or go to http://bit.Combatant Gentlemen/6Y7Bj2m to find one close to you.3.Make use of household items: Use cat litter or old coffee grounds to dispose medications if other options arenot available. Mix your drugs with these household products, seal them in an airtight container andthrow it into the garbage. Call [facility]: [phone] to be sure your drugs can be [...] drowsiness, such as benzodiazepines, also known as benzos,including diazepam and alprazolam, muscle relaxants or sleep aids. Never sell or share prescriptionopioids. This is illegal. Store opioids in a [...] aware that I should contact my doctor. Patient/Workforce Planner Signature: Date/Time: Relationship to Patient: Witness Name/Signature: Date/Time: [facility] Edna [id number] Evaluation + Plan note Diagnostic Tests Pending * Urine Culture 12/09/21 [facility] 11-16-2021 Hospital Discharge instructions Patient Education 04/15/2021 04:03:29 Self-Care for Sore Throats Self-Care for Sore Throats Sore throats happen for many reasons, such as colds, allergies, and infections caused by viruses orbacteria. In any case, your throat becomes red [...] drops, hard candy, ice chips, or frozen fruit- juice bars. Use the sugar-free versions if your diet or medical condition requires them. Gargle to ease irritation Gargling every hour or 2 can ease irritation. Try gargling with 1 of these solutions: 1/4 teaspoon of salt in 1/2 cup of warm water An qate-pie-emnyeea anesthetic gargle Use medicine for more relief Rtsz-jna-kinfbsl medicine can reduce sore throat symptoms. Ask your pharmacist if you have questions about which medicine to use: Ease pain with anesthetic sprays. Aspirin or an aspirin substitute also helps. Remember, never giveaspirin to anyone 18 or younger, or if [...] swollen glands in the neck or jaw [phone] [employer]. [address] [place] [address]. All rights reserved. This information is not intended as a substitute for professional medical care. Always follow yourhealthcare professional's instructions. 04/15/2021 04:03:28 Pharyngitis, Viral Viral Pharyngitis (Sore Throat) You or your child have pharyngitis (sore throat). This infection is caused by a virus. It can causethroat pain that is worse when swallowing, aching [...] Return to work or school when you oryour child feel well enough. You or your child should drink plenty of fluids to prevent dehydration. Use throat lozenges or numbing throat sprays to help reduce pain. Gargling with warm salt water will also help reduce throat pain. Dissolve 1/2 teaspoon of salt in 1 glass of warm water. Children cansip on juice or a popsicle. Children 5 [...] New rash Other symptoms are getting worse [phone] [employer]. [address] [place] [address]. All rights reserved. This information is not intended as a substitute for professional medical care. Always follow yourhealthcare professional's instructions. Follow Up Care 04/15/2021 03:49:41 With:DOMINIC JIMENEZ MD Address: When:2-4 days [facility] 08-12-2019 History of Past illness Narrative* Problem Noted Date Resolved Date Normal labor [...] of this encounter (statuses as of 02/03/2022) [facility] No data available for this section [facility] Evaluation note* Diagnosis Secondary amenorrhea- Primary Absence of menstruation documented [facility] Diagnosis Fall, initial encounter- Primary Abdominal pain in , unspecified trimester [facility] Work [facility] Evaluation note* Diagnosis Women's annual routine gynecological examination- Primary depression Mental disorders of mother, complicating , childbirth, or the puerperium, unspecified as to episode of care documented in this encounter [facility] note* Diagnosis Encounter for supervision of other normal , third trimester- Primary Twin gestation, unable to determine number of placenta and number of amniotic sacs in second trimester documented in this encounter [facility] note* Diagnosis Anemia during - Primary Anemia, antepartum documented in this encounter [facility] note* Diagnosis Encounter for supervision of other normal , third trimester- Primary Dichorionic diamniotic twin in second trimester [facility] Diagnosis Dichorionic diamniotic twin in second trimester- Primary [facility]* Diagnosis Encounter for supervision of other normal , third trimester- Primary Dichorionic diamniotic twin in second trimester documented in this encounter [facility]* Diagnosis Dichorionic diamniotic twin in third trimester- Primary documented in this encounter [facility] note* Diagnosis Dichorionic diamniotic twin gestation- Primary (spontaneous vaginal delivery) Normal delivery Pre-eclampsia in third trimester documented in this encounter [facility] note* Diagnosis Preeclampsia in period- Primary documented in this encounter [facility] note* Diagnosis hypertension- Primary documented in this encounter [facility] noteNo assessment information availableWCleveland [facility] Work Phone: Evaluation note* Diagnosis Ovarian cyst rupture- Primary Other and unspecified ovarian cyst Screening for STD (sexually transmitted disease) Screening examination for venereal disease documented in this encounter [facility] Discharge instructions No data available for this section [facility] Progress note No data available for this section [facility] Reason for referral (narrative)No reason for referral information availableWCleveland Clinic [facility] Work Phone: Summary Purpose Family History No Family History Records FoundNo Family History Records FoundNo Family History Records FoundNo Family History Records FoundNo Family History Records FoundNo Family History Records FoundNo Family History Records FoundNo Family History Records Found No data available for this section No Family History Records FoundNo Family History [...] Code 07/17/2022 9:35 PM 07/20/2022 10:04 PM Advance Directive Response Recorded Date/ Time Do you have a Healthcare Power of Manga Artist? No December 17, 2024 7:23pm Date Activated Date Inactivated Comments 07/21/2022 10:30 PM 07/23/2022 1:27 PM Date Activated Date Inactivated Comments 07/17/2022 9:35 PM 07/20/2022 10:04 PM Chief Complaint and Reason for Visit Chief Complaint Admit Date SYNCOPE, BACK PAIN December 17, 2024 6:58 pm Additional Source Comments INFORMATION SOURCE (unrecogn ized section and content) DATE CREATED AUTHOR 05/03/2018 [facility] DATE CREATED AUTHOR AUTHOR'S ORGANIZ ATION 11/26/2018 [facility] DATE CREATED AUTHOR AUTHOR'S ORGANIZ ATION 03/07/2019 [facility] DATE CREATED AUTHOR AUTHOR'S ORGANIZ ATION 05/03/2020 [facility] DATE CREATED AUTHOR AUTHOR'S ORGANIZ ATION 02/04/2022 [facility] DATE CREATED AUTHOR AUTHOR'S ORGANIZ ATION 02/09/2022 [facility] DATE CREATED AUTHOR AUTHOR'S ORGANIZ ATION 07/29/2022 [facility] DATE CREATED AUTHOR AUTHOR'S ORGANIZ ATION 01/05/2023 [facility] DATE CREATED AUTHOR AUTHOR'S ORGANIZ ATION 12/21/2024 [facility] DATE CREATED AUTHOR AUTHOR'S ORGANIZ ATION 12/24/2024 [facility] DATE CREATED AUTHOR AUTHOR'S ORGANIZ ATION 12/30/2024 [facility] Care Team (unrecognized sect ion and content) Care Team Personnel Name: PHYSICIAN, NONE Position: Physician Member Role: Primary Care Physician Care Team Related Persons Name: YON NAYA Address: Home [address] [place] [address] Care Team Personnel Name: PHYSICIAN, NONE Position: Physician Member Role: Primary Care Physician Name: ANUM Brown Position: AO RN Member Role: ED RN Name: Cailin Myers RN Position: AO RN Member Role: ED RN Name: FLORI TRENT MD Position: ED Physician Member Role: Attending Physician Address: Address: [facility] [address] [place] [address] Care Team Related Persons Name: NAYA MARVIN Address: Home [address] [place] [address] Source Comments (unrecognize d section and content) In the event this informatio n is protected by the Federal Confidentiality of Alcohol and Drug Abuse Patient Records regulations: The Federal rules restrict any use of the information to criminally investigate or prosecute any alcohol or drug abuse patient.[facility] Hospital[facility] the event this information is protected by the Federal Confidentiality of Alcohol and Drug Abuse Patient Records regulations: The Federal rules restrict any use of the information to criminally investigate or prosecute any alcohol or drug abuse patient.[facility] Reason for Visit (unrecogniz ed section and [...] 07/16/2022 Specialty Diagnoses / Procedures Referred By Contac t Referred To Contact Diagnoses Dichorionic diamniotic twin gestation Procedures . Kelvin Reyes, DO [address] [place] [address] [address] [place] [address] Referral ID Status Reason Start Date Expiration Date Visits Re quested Visits Authorized [id number] 1 1 Specialty Diagnoses / Procedures Referred By Contoriana t Referred To Contact Diagnoses Preeclampsia in period Procedures . Tiana Arenas MD [address] [address] [address] Antepartum [address] [place] [address] Referral ID Status Reason Start Date Expiration Date Visits Re quested Visits Authorized [id number] 1 1 Reason Comments Care Delivered 07.18.22 BP check Reason Comments Hospital Follow Up Care Teams (unrecognized sec tion and content) Oxygen Therapy Teacher Relationship Specialty Start Date End Date Luciano Shah MD [address] [place], [place] [id number] PCP - General Pediatrics 06/29/16 Oxygen Therapy Teacher Relationship Specialty Start Date End Date [facility] [address] [place] [address] PCP - General 01/05/17 Oxygen Therapy Teacher Relationship Specialty Start Date End Date Mark Dowd MD [address] [facility] [address] [place] [address] PCP - General Obstetrics & Gynecology 04/20/22 Oxygen Therapy Teacher Relationship Specialty Start Date End Date Mark Dowd MD [address] [address] PCP - General Obstetrics & Gynecology 04/20/22 Oxygen Therapy Teacher Relationship Specialty Start Date End Date Mark Dowd MD [address] [address] PCP - General Obstetrics & Gynecology 04/20/22 Oxygen Therapy Teacher Relationship Specialty Start Date End Date Mark Dowd MD [address] [facility] [address] [address] PCP - General Obstetrics & Gynecology 04/20/22 Oxygen Therapy Teacher Relationship Specialty Start Date End Date Mark Dowd MD [address] [address] PCP - General Obstetrics & Gynecology 04/20/22 Oxygen Therapy Teacher Relationship Specialty Start Date End Date Mark Dowd MD [address] [facility] [address] [place] [address] PCP - General Obstetrics & Gynecology 04/20/22 Oxygen Therapy Teacher Relationship Specialty Start Date End Date Mark Dowd MD [address] [facility] [address] [place] [address] PCP - General Obstetrics & Gynecology 04/20/22 Oxygen Therapy Teacher Relationship Specialty Start Date End Date Mark Dowd MD [address] [facility] [address] [place] [address] PCP - General Obstetrics & Gynecology 04/20/22 Oxygen Therapy Teacher Relationship Specialty Start Date End Date Mark Dowd MD [address] [facility] [address] [place] [address] PCP - General Obstetrics & Gynecology 04/20/22 Oxygen Therapy Teacher Relationship Specialty Start Date End Date Mark Dowd MD [address] [facility] [address] [place] [address] PCP - General Obstetrics & Gynecology 04/20/22 Oxygen Therapy Teacher Relationship Specialty Start Date End Date Mark Dowd MD [address] [facility] [address] [place] [address] PCP - General Obstetrics & Gynecology 04/20/22 Oxygen Therapy Teacher Relationship Specialty Start Date End Date Mark Dowd MD [address] [facility] [address] [place] [address] PCP - General Obstetrics & Gynecology 04/20/22 Oxygen Therapy Teacher Relationship Specialty Start Date End Date Mark Dowd MD [address] [facility] [address] [place] [address] PCP - General Obstetrics & Gynecology 04/20/22 Oxygen Therapy Teacher Relationship Specialty Start Date End Date Mark Dowd MD [address] [facility] [address] [place] [address] PCP - General Obstetrics & Gynecology 04/20/22 Oxygen Therapy Teacher Relationship Specialty Start Date End Date Mark Dowd MD [address] [facility] [address] [place] [address] PCP - General Obstetrics & Gynecology 04/20/22 Oxygen Therapy Teacher Relationship Specialty Start Date End Date Mark Dowd MD [address] [facility] [address] [place] [address] PCP - General Obstetrics & Gynecology 04/20/22 Oxygen Therapy Teacher Relationship Specialty Start Date End Date Mark Dowd MD [address] [address] PCP - General Obstetrics & Gynecology 04/20/22 Team Status: Active Member Role/Relationship Status Dates No Primary Care Physician Primary Care Provider Active Team Status: Inactive Member Role/Relationship Status Dates No Primary Care Physician Primary Care Provider Active Start: December 17, 2024 End: December 17, 2024 Dr. Emelina Howard , DO Referring Provider Active S tart: December 17, 2024 End: December 17, 2024 Dr. Emelina Howard , DO Emergency Provider Active S tart: December 17, 2024 End: December 17, 2024 Oxygen Therapy Teacher Relationship Specialty Start Date End Date Luciano Shah MD [address] [place] [address] PCP - General Pediatrics 06/29/16 Oxygen Therapy Teacher Relationship Specialty Start Date End Date Mark Dowd MD [address] [address] PCP - General Obstetrics & Gynecology 04/20/22 [...] minutes - Dilute with 10 mL NS 1841 (Given - Provid er: Shazia Steward RN) [...] On Wed06/29/22 at 1830, For 1 dose 1838 (Given - Provid er: Shazia Steward RN) [...] (New Bag - Prov ider: Tiffany Denton RN)1828 (Stopped - Provider: Tiffany Denton RN) Scheduled Medication Order 07/18/2022 07/19/2022 07/20/2022 famotidine (Pepcid) injection 20 mg (CANCELED) 20 mg, IntraVENous, Administer over 2 Minutes, 2 times daily, First dose (after last modification) on 07/18/22 at 0415, IV or ORAL 0414 (Given [...] 2054 (New Bag - Provider: Lucy Bergman, RN)2114 (Stopped - Provider: Lucy Bergman RN) measles, [...] On 07/18/22 at 0145, For 1 dose 014 (Given - Provider: Lucy Bergman RN) miSOPROStol [...] Pre-Delivery 1705 (Rate/Dose Change - Provider: Ella Martinez, ANUM)1759 (Rate/Dose Change - Provider: Ella Martinez RN)1939 (Stopped - Provider: Teresa Ashraf RN) magnesium sulfate 20 GM/500ML infusion () 2 g/hr (50 mL/hr), IntraVENous, Continuous, Starting on Wed07/18/22 at 2100, For 24 hours 2114 (New Bag - Provider: Lucy Bergman RN) 0821 (New Bag - Provider: Nicole Lewis RN)212 (Stopped - Provider: Linda Rincon RN) oxytocin [...] every 2-3 minutes with cervical changes or [place] units (MVU) greater than 200 in a [...] Bergman RN)0213 (Rate/Dose Change - Provider: Lucy Bergman RN)0459 (Rate/Dose Change - Provider: Lucy Bergman [...] Bag - Provider: Akash Eubanks APRN - DISTRIBUTING CLERK)1446 (New Bag - Provider: Ella Martinez RN - Comment: dual checked with Arsenio Dominguez RN) PRN Medication Order 07/18/2022 07/19/2022 07/20/2022 acetaminophen (Tylenol) tablet 650 mg (CANCELED) 650 mg, Oral, Every 6 hours PRN, mild pain (1-3), Starting on Wed07/17/22 at 2345, Maximum dose of acetaminophen is [...] Lucy Bergman RN)1024 (Given - Provider: Nicole Lewis, RN)1604 (Given - Provider: Nicole Lewis, RN) 0027 (Given - Provider: Linda Rincon, ANUM)0627 (Given - Provider: Linda Rincon, ANUM)1449 (Given - Provider: Armando Hernandez RN) Benzocaine-Benzethonium 20-0.2 % spray Topical, As needed, pain, , Starting on Wed07/19/22 at 0215, , Apply to perineal area. Patient is capable and may self administer at bedside. docusate sodium (Colace) capsule 100 mg 100 mg, Oral, 2 times daily PRN, constipation, Vaginal Delivery, Starting on 07/19/22 at 0226, Do not crush or break. 0944 (Given - Provider: Anahi Macedo, ANUM) famotidine (Pepcid) tablet 20 mg 20 mg, [...] RN) 0823 (Given - Provider: Nicole Lewis RN)1416 (Given - Provider: Nicole Lewis RN) [...] if patient is unable to take orally. 112 (Given - Provider: Ella Martinez RN)2050 (Given [...] 2038 (New Bag - Provider: Lucy Bergman, ANUM) 119 (Stopped - Provider: Lucy Bergman, RN) [...] or discomfort, Starting on 07/19/22 at 0215, , [...] 6 hours PRN, nausea, vomiting, Starting on Wed07/19/22 at 0226
1st Line. Give IV if patient is unable to take orally. If inadequate response within 60 minutes, proceed to next-line agent or contact provider if no further options ordered.
Scheduled Medication Order 07/21/2022 07/22/2022 07/23/2022 ferrous sulfate tablet 325 mg 325 mg, Oral, 2 times daily, First dose on Wed07/21/22 at 2245 2248 (Given - Provider: Priyanka Cobb RN) 0838 (Given - Provider: Yisel Shabazz RN)2110 (Given - Provider: Luci Rutledge, RN) 0947 (Given - Provider: Hamilton Dumas RN) ketorolac (Toradol) injection 30 mg 30 mg, [...] 0900, Do not crush, chew, or split. 0838 (Given - Provider: Yisel Shabazz RN) 0947 (Given - Provider: Hamilton Dumas RN) sodium chloride 0.9% (NS) flush 5-40 mL [...] Yisel Shabazz RN)2113 (Given - Provider: Luci Rutledge RN) 1045 (Not Given - Provider: Hamilton Dumas [...] at 2227 0838 (Given - Provider: Yisel Shabazz RN) lanolin (Lansinoh) cream Topical, As needed, [...] Cobb RN)1245 (See Alternative - Provider: Yisel Shabazz RN) metoclopramide (Reglan) tablet 10 mg(Linked Group 1) 10 mg, Oral, Every 6 hours PRN, MILLER, 1st line, Starting on Wed07/21/22 at 2228 0449 (Given - Provider: Priyanka Cobb RN)1245 (Given - Provider: Yisel Shabazz RN) ondansetron (Zofran) injection 4 mg(Linked Group [...] contact provider if no further options ordered.
Goals (unrecognized section and content) Goals may be documented in a n alternate section FOR RECORDS PERTAINING TO PATIENTS WHO ARE [...] BE BASED ON THE PRIMARY CLINICAL RECORDS. [employer] provides no warranty or guarantee of the accuracy or completeness of information in this document.
[2025-05-14 21:41] LABS: Internal QC Validated? YES +Cl - CLEAR BKGD; Pregnancy, Serum, hCG Quali. NEGATIVE Negative
[2025-05-14 21:45] VITALS: BP 102/64; PULSE 95; RESP 22; TEMP 37.7; O2SAT 99
[2025-05-14 21:46] LABS: Lipase 22 U/L (13-75)
[2025-05-14 21:47] LABS: AST(SGOT) 37 U/L (<=31); Alanine Aminotransfer ALT/SGPT 20 U/L (<=34); Albumin, Serum 4.9 g/dL (3.5-5.0); Alkaline Phosphatase 78 U/L (35-104); Anion Gap 16 (5-15); BUN 15 mg/dL (4-19); BUN/Creat Ratio 21.0 RATIO (10-20); Calcium,Total 9.9 mg/dL (7.6-11.0); Carbon Dioxide 18.1 mmol/L (21.0-32.0); Chloride 105 mmol/L (98-108); Estimated Creatinine Clearance 105.61 ml/min (50-250); Globulin 3.3 g/dL (2.2-4.2); Glucose 109 mg/dL (70-99); Potassium 4.9 mmol/L (3.3-5.1)
[2025-05-14 22:08] VITALS: BP 108/72; PULSE 105; RESP 20; TEMP 37.7; O2SAT 100
--- NOTE | 2025-05-14 22:10 | CT_ITS ---
PROCEDURE: ABDOMEN/PELVIS W IV CONT ONLY 05/15/2025 REASON FOR EXAM: ABD PAIN TECHNIQUE: Procedure Code: [id number] Modality: CT Procedure: ABDOMEN/PELVIS W IV CONT ONLY Coronal and Sagittal reconstruction series were provided. CONTRAST: isovue 370 VOLUME: 100 mL One or more dose reduction techniques were used (e.g., Automated exposure control, adjustment of the mA and/or kV according to patient size, use of iterative reconstruction technique. RADIATION DOSE SUMMARY: CTDI Vol 13.71 mGy DLP :713.64 mGycm COMPARISON: 17-Dec-2024 FINDINGS: Resolution of the pelvic ileal loops focal inflammatory changes. Mild diffuse thickening of the small bowel loops, possibly non specific versus mild enteritis. The appendix is not identified. No right iliac inflammatory changes along its site. The examined ascending colon, the transverse colon and the descending colon are unremarkable. The stomach shows wall thickening, possibly under distension. Average sized liver showing homogenous parenchymal attenuation. No dilated intra or extra-hepatic biliary tracts. Gall bladder showing no radiodense calculi. Normal appearance of the pancreas with clear surrounding fat planes. The spleen, adrenal glands, aorta and IVC are unremarkable. Both kidneys are of average size and showing smooth outline with preserved parenchymal thickness. No renal calculi. No hydronephrosis. Distension of the urinary bladder showing no obvious masses. No obvious masses related to the pelvic viscera. Prominent parametrial veins. Mild free pelvic fluid, likely physiological. No free air. No obvious pathologically enlarged lymph nodes. Scanned osseous structures show no osseous destruction. Scanned lung bases show no obvious abnormalities. CT/Abdomen/Pelvis W IV Cont ONLY IMPRESSION: Resolution of the pelvic ileal loops focal inflammatory changes. Mild diffuse thickening of the small bowel loops, possibly non specific versus mild enteritis. No newly developed pelvi-abdominal collections or free air. Reading [facility] [address]
--- NOTE | 2025-05-14 22:29 | EDS_ITS ---
HPI History of Present Illness Chief Complaint: Nausea/Vomiting/Diarrhea Narrative Narrative: Patient is a 29-year-old female with past medical history of Raynaud's disease who presented to the emergency department chief complaint of abdominal pain nausea vomiting diarrhea and not feeling well. She also notes that she has had a fever as well. States that her symptoms started this morning around 930 and she has not been unable to keep anything down since then prompting her to come h ere to be evaluated. Patient denies any previous abdominal surgeries denies any possibility of as she just darted her menstrual cycle. [facility] Medical History Raynaud's disease Home Medications ?Medication ?Instructions ?Recorded ?Last Taken ?Type ondansetron 4 mg disintegrating 4 mg PO Q6H PRN nausea and 05/14/25 Unknown Rx tablet vomiting #20 tabs Allergy/AdvReac Type Severity Reaction Status Date / Time carbinoxamine (From [facility]) Allergy Intermediate Hives Verified 05/14/25 21:00 pseudoephedrine (From [facility]) Allergy Intermediate Hives Verified 05/14/25 21:00 Surgical History Hx of tonsillectomy [place] teeth extracted Social History Smoking Status: Never smoker details: 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 and other details: Does not use IV drugs ROS ROS ED ROS Narrative Constitutional: Complains of fever as noted above denies any lightheadedness dizziness Cardiovascular: Denies chest pain Respiratory: Denies shortness of breath Abdomen: Complains of abdominal pain nausea vomiting as noted above : Denies urinary symptoms Neurological: Denies numbness, weeks, tingling Musculoskeletal: Denies back pain Skin: Denies rashes or lesions EXAM Physical Exam Narrative Exam Narrative: General: Patient lying in bed rest comfortably did not appear to be in acute distress Head: Atraumatic, normocephalic Eyes: PERRL bilaterally, EOMI bilaterally, no conjunctival injection noted, no posterior pharynx erythema noted Neck: Soft, supple, trachea midline Cardiovascular: Patient tachycardic with a regular rhythm Respiratory: Clear to auscultation bilaterally Abdomen: Soft, nondistended, mild tender to palpation periumbilical in the right lower quadrant region Extremities: +5/5 strength noted in the bilateral lower extremities Neurological: Patient following commands and that she was at [facility] the year is 2024 Skin: Warm, dry, intact no rashes or lesions noted Const Vital Signs: 05/14/25 20:35 05/14/25 21:45 05/14/25 22:08 Temperature 99.6 F H 100 F H 100 F H Temperature Source Oral Oral Oral Pulse Rate 106 H 95 105 H Respiratory Rate 18 22 H 20 H Blood Pressure 109/67 102/64 108/72 Blood Pressure Mean 81 77 84 Pulse Ox 96 99 100 Oxygen Delivery Method Room Air Room Air 05/14/25 22:54 05/14/25 23:38 Temperature 98.7 F Temperature Source Oral Pulse Rate 85 90 Respiratory Rate 18 14 Blood Pressure 109/66 102/63 Blood Pressure Mean 80 76 Pulse Ox 99 98 Oxygen Delivery Method Room Air Room Air MDM MDM MDM Narrative Medical decision making narrative: Patient is a 29-year-old female who presented to the emergency department the chief complaint abdominal pain fever nausea vomiting not tolerating oral intake. On the differential diagnose includes but not limited to appendicitis, , viral gastroenteritis. Once workup is obtained and reviewed she will be reevaluated. Patient be given a liter of IV fluids as well as a gram of Tylenol. Patient CBC was significant leukocytosis 15,000, hemoglobin was noted be 15.8, platelet count was noted to 292. Patient sodium normal 139, [place] normal 4.9, creatinine was noted be normal at 0.72. Patient's glucose was noted be 109, AST and ALT were 37 and 20 respectively lipase normal at 22. Patient's urinalysis was significant for 150 ketones 250 occult blood she is on her menstrual cycle currently no evidence of infection she does not have urinary symptoms with this. Patient CT abdomen pelvis with IV contrast reviewed and showed resolution of pelvic ileal loops focal inflammatory changes. Mild diffuse thickening of small bowel loops and nonspecific versus mild enteritis which she likely has given her symptoms. On reevaluation the patient she is feeling much better and would like to go home at this point in time. Patient be given another liter of fluids for a total of 2 L and will be given a prescription for Zofran she was advised to continue supportive care. She is encouraged to return with worsening symptoms or concerns otherwise she can follow-up with her doctor in outpatient setting. Significant other at bedside is also agreeable [place] all question concerns answered she was discharged home in stable condition Lab Data Labs: Laboratory Results - last 24 hr 05/14/25 05/14/25 05/14/25 20:56 21:20 22:50 WBC 15.8 H RBC 5.14 Hgb 15.8 H Hct 46.3 MCV 90.1 MCH 30.7 MCHC 34.1 RDW Std Deviation 41.1 RDW Coeff of Conrado 12.4 Plt Count 292 MPV 10.2 Immature Gran % (Auto) 0.400 Neut % (Auto) 95.2 H Lymph % (Auto) 2.3 L [place] % (Auto) 1.8 Eos % (Auto) 0.1 Baso % (Auto) 0.2 Absolute Neuts (auto) 15.0 H Absolute Lymphs (auto) 0.36 L Nucleated RBC % 0 Sodium 139 Potassium 4.9 Chloride 105 Carbon Dioxide 18.1 L Anion Gap 16 H BUN 15 Creatinine 0.72 Estim Creat Clear Calc 105.61 Est GFR (MDRD) Non-Af 117 BUN/Creatinine Ratio 21.0 H Glucose 109 H Calcium 9.9 Total Bilirubin 0.63 AST 37 H ALT 20 Alkaline Phosphatase 78 Total Protein 8.2 Albumin 4.9 Globulin 3.3 Albumin/Globulin Ratio 1.5 Lipase 22 Serum , Qual NEGATIVE Urine Color Yellow Urine Clarity Sl. Cloudy Urine pH 6.0 Ur Specific [place] 1.020 Urine Protein 30 H Urine Glucose (UA) Normal Urine Ketones 150 A* Urine Occult Blood 250 H Urine Nitrite Negative Urine Bilirubin 1 H Urine Urobilinogen Normal Ur Leukocyte Esterase 25 H Urine RBC 25-50 SEEN Urine WBC 0-5 SEEN Ur Squamous Epith Cells 0 SEEN Ur Transition Epith Cell 0-5 SEEN Urine Bacteria 1+ Urine Mucus 0 SEEN Radiography Diagnostic Testing: Clinical Impression(s) from Imaging Studies Abdomen/Pelvis CT 05/14/25 22:10 IMPRESSION: Resolution of the pelvic ileal loops focal inflammatory changes. Mild diffuse thickening of the small bowel loops, possibly non specific versus mild enteritis. No newly developed pelvi-abdominal collections or free air. Reading Location: [place] [address] Discharge Plan Triage Chief Complaint: Nausea/Vomiting/Diarrhea ED Provider: Abdirashid Hamlin Dx/Rx/DC Orders Clinical Impression: Viral gastroenteritis, Nausea & vomiting Prescriptions: New ondansetron 4 mg tablet,disintegrating 4 mg PO Q6H PRN (Reason: nausea and vomiting) Qty: 20 0RF Primary Care Provider: Care Physician,No Primary Referrals: Care Physician,No Primary [Primary Care Provider, Medical] Activity Restrictions/Additional Instructions: Your CT did not show any surgical findings you likely have a viral illness causing your symptoms. Continue supportive care pushing fluids such as water Pedialyte etc.. Use Zofran as prescribed. Start with a bland diet and advance as tolerated. Return with worsening symptoms or any other concerns Print Language: Slovenian Disposition Disposition: Home, Self Care
[2025-05-14 22:54] VITALS: BP 109/66; PULSE 85; RESP 18; TEMP 37.1; O2SAT 99
[2025-05-14 22:58] LABS: Mucous, Urine 0 SEEN /hpf (<or=2+); Squamous Epithelial Cells - UA 0 SEEN /hpf (5-10)
[2025-05-14 23:00] LABS: Color, Urine Yellow (Yellow); Glucose, Dipstick Normal (Normal); Leukocyte Esterase-Dipstick 25 /ul (Negative); Nitrite-Dipstick Negative (Negative); Occult Blood-Urine 250 /ul (Negative); Protein-Dipstick 30 mg/dl (Negative); Specific Gravity, Urine 1.020 (1.002-1.030)
[2025-05-14 23:04] LABS: Urine Bilirubin Dipstick 1 mg/dL (Negative)
[2025-05-14 23:05] LABS: Ketone-Dipstick 150 mg/dl (Negative)
--- NOTE | 2025-05-14 23:05 | ED.RN ---
Critical urine ketone result of 150 received from lab. Physician notified
[2025-05-14 23:07] LABS: Red Blood Cells-Urine 25-50 SEEN /hpf (0-5); Transitional Epithelial - Ur 0-5 SEEN /hpf (0-5)
[2025-05-14 23:38] VITALS: BP 102/63; PULSE 90; RESP 14; O2SAT 98
[2025-05-14] MEDS: 0.9% Normal Saline (500mL Bag) 500 ML 999 ML IV (23:38)
[2025-05-15 00:57] VITALS: BP 102/55; PULSE 66; RESP 12; TEMP 36.4; O2SAT 100
== END 2025-05-15 00:58 | disposition home or self-care (01) ==
PROVIDERS: Emergency Provider Emergency Medicine; Visit Provider Emergency Medicine
DX: A08.4 Viral intestinal infection, unspecified (principal); R11.2 Nausea with vomiting, unspecified
CPT/HCPCS: 74177; 80053; 81001; 83690; 84703; 85025; 96361; 96374; 99282; Q9967; A4216; J2405